=== PATIENT | male | born 1945 | race Caucasian/White ===

== ENCOUNTER → 2017-01-23 | Outpatient (CLI) | payer OTHER ==
[2017-01-23 14:18] LABS: ALT/SGPT 22 U/L (12-78); BLOOD UREA NITROGEN 13 mg/dl (7-18); BUN/CREATININE RATIO 18.7 (10-20); CALCIUM 8.9 mg/dl (8.5-10.1); CARBON DIOXIDE 33 mmol/L (21-32); CHLORIDE 99 mmol/L (98-107); CHOLESTEROL 158 mg/dl (0-200); GLUCOSE 133 mg/dl (70-99); POTASSIUM 4.2 mmol/L (3.5-5.1); SODIUM 138 mmol/L (136-145); TRIGLYCERIDES 113 mg/dl (0-150); VERY LOW DENSITY LIPOPROT CALC 23 mg/dl
[2017-01-23 14:20] LABS: BASO % 0.4 %; BASO ABS # 0.03 K/uL (0-0.2); COMPLETE YES; HEMATOCRIT 42.4 % (42-52); IG% 0.3 %; LYMPH % 15.2 %; LYMPH ABS # 1.19 K/uL (1.2-3.4); MEAN CELL VOLUME 90.4 fL (80-100); MEAN CORPUSCULAR HEMOGLOBIN 28.6 pg (25-34); MEAN CORPUSCULAR HGB CONC 31.6 g/dl (32-36); MEAN PLATELET VOLUME 11.1 fL (7.4-10.4); MONO % 11.3 %; NEUT % 71.8 %; PLATELET COUNT 185 K/uL (130-400); RED BLOOD COUNT 4.69 M/uL (4.7-6.1); WHITE BLOOD COUNT 7.81 K/uL (4.8-10.8)
[2017-01-23 14:21] LABS: ALB/GLOB RATIO 0.8 (0.9-2); ALKALINE PHOSPHATASE 124 U/L (45-117); AST/SGOT 18 U/L (15-37); CHOLESTEROL/HDL RATIO 2.5; HDL CHOLESTEROL 63 mg/dl; LDL CHOLESTEROL CALCULATED 72 mg/dl
[2017-01-23 15:27] LABS: ESTIMATED AVERAGE GLUCOSE 151 mg/dl; HA1C FLAG Normal (Normal)
== END | disposition home or self-care (01) ==
LOC: C.LABSPEC 13:28
PROVIDERS: ATTEND Family Medicine
DX: E11.9 Type 2 diabetes mellitus without complications (principal); I25.10 Atherosclerotic heart disease of native coronary artery without angina pectoris; J44.9 Chronic obstructive pulmonary disease, unspecified

== ENCOUNTER → 2017-03-23 | Outpatient (CLI) | payer OTHER ==
[2017-03-23 18:13] LABS: BASO % 0.2 %; BASO ABS # 0.02 K/uL (0-0.2); COMPLETE YES; EOS % 0.4 %; HEMATOCRIT 42.4 % (42-52); IG% 0.4 %; LYMPH % 11.4 %; LYMPH ABS # 1.16 K/uL (1.2-3.4); MEAN CORPUSCULAR HEMOGLOBIN 29.2 pg (25-34); MEAN CORPUSCULAR HGB CONC 32.1 g/dl (32-36); MEAN PLATELET VOLUME 10.8 fL (7.4-10.4); MONO % 10.8 %; NEUT % 76.8 %; PLATELET COUNT 190 K/uL (130-400); RED BLOOD COUNT 4.66 M/uL (4.7-6.1); WHITE BLOOD COUNT 10.17 K/uL (4.8-10.8)
[2017-03-23 18:59] LABS: ALT/SGPT 20 U/L (12-78); AST/SGOT 16 U/L (15-37); BLOOD UREA NITROGEN 10 mg/dl (7-18); BUN/CREATININE RATIO 15.2 (10-20); CALCIUM 8.6 mg/dl (8.5-10.1); CARBON DIOXIDE 33 mmol/L (21-32); CHLORIDE 101 mmol/L (98-107); CREATININE 0.65 mg/dl (0.60-1.40); GLUCOSE 110 mg/dl (70-99); POTASSIUM 4.1 mmol/L (3.5-5.1); SODIUM 139 mmol/L (136-145)
[2017-03-23 19:22] LABS: ALKALINE PHOSPHATASE 121 U/L (45-117); THYROID STIMULATING HORMONE 0.746 uIu/ml (0.300-4.500)
== END | disposition home or self-care (01) ==
LOC: C.LABSPEC 17:43
PROVIDERS: ATTEND Family Medicine
DX: R07.89 Other chest pain (principal); L03.032 Cellulitis of left toe; R00.0 Tachycardia, unspecified

== ENCOUNTER → 2017-04-12 | Outpatient (CLI) | payer OTHER ==
[2017-04-12 13:52] LABS: BASO % 0.1 %; BASO ABS # 0.02 K/uL (0-0.2); COMPLETE YES; EOS % 0.1 %; HEMATOCRIT 41.9 % (42-52); IG% 0.1 %; LYMPH % 9.3 %; LYMPH ABS # 1.33 K/uL (1.2-3.4); MEAN CELL VOLUME 91.3 fL (80-100); MEAN CORPUSCULAR HEMOGLOBIN 29.2 pg (25-34); MONO % 10.3 %; NEUT % 80.1 %; PLATELET COUNT 251 K/uL (130-400); RED BLOOD COUNT 4.59 M/uL (4.7-6.1); WHITE BLOOD COUNT 14.37 K/uL (4.8-10.8)
[2017-04-12 14:21] LABS: ESTIMATED AVERAGE GLUCOSE 148 mg/dl; HA1C FLAG Normal (Normal)
[2017-04-12 14:26] LABS: ALT/SGPT 26 U/L (12-78); AST/SGOT 16 U/L (15-37); BLOOD UREA NITROGEN 10 mg/dl (7-18); BUN/CREATININE RATIO 14.6 (10-20); CARBON DIOXIDE 30 mmol/L (21-32); CHLORIDE 100 mmol/L (98-107); CHOLESTEROL 164 mg/dl (0-200); CREATININE 0.65 mg/dl (0.60-1.40); GLUCOSE 122 mg/dl (70-99); POTASSIUM 3.8 mmol/L (3.5-5.1); SODIUM 139 mmol/L (136-145); TRIGLYCERIDES 122 mg/dl (0-150); VERY LOW DENSITY LIPOPROT CALC 24 mg/dl
[2017-04-12 14:30] LABS: ALB/GLOB RATIO 0.7 (0.9-2); ALKALINE PHOSPHATASE 112 U/L (45-117); CHOLESTEROL/HDL RATIO 2.6; HDL CHOLESTEROL 63 mg/dl; LDL CHOLESTEROL CALCULATED 77 mg/dl
[2017-04-12 14:35] LABS: CALCIUM 9.4 mg/dl (8.5-10.1)
== END | disposition home or self-care (01) ==
LOC: C.LABSPEC 13:25
PROVIDERS: ATTEND Family Medicine
DX: E11.9 Type 2 diabetes mellitus without complications (principal); J44.9 Chronic obstructive pulmonary disease, unspecified; I25.10 Atherosclerotic heart disease of native coronary artery without angina pectoris

== ENCOUNTER → 2017-04-25 | Outpatient (CLI) | payer OTHER ==
[2017-04-25 15:16] LABS: ALB/GLOB RATIO 0.8 (0.9-2); ALKALINE PHOSPHATASE 116 U/L (45-117); ALT/SGPT 20 U/L (12-78); AST/SGOT 15 U/L (15-37); BLOOD UREA NITROGEN 8 mg/dl (7-18); BUN/CREATININE RATIO 11.1 (10-20); CALCIUM 8.5 mg/dl (8.5-10.1); CARBON DIOXIDE 30 mmol/L (21-32); CHLORIDE 102 mmol/L (98-107); CREATININE 0.72 mg/dl (0.60-1.40); GLUCOSE 147 mg/dl (70-99); POTASSIUM 3.7 mmol/L (3.5-5.1); SODIUM 141 mmol/L (136-145)
[2017-04-25 15:36] LABS: BASO ABS # 0.19 K/uL (0-0.2); BASOPHIL % 1.8 % (0-2); COMPLETE YES; EOSINOPHIL % 0.9 %; HEMATOCRIT 43.1 % (42-52); LYMPH ABS # 0.94 K/uL (1.2-3.4); LYMPHOCYTE % 8.8 %; MEAN CELL VOLUME 90.7 fL (80-100); MEAN CORPUSCULAR HEMOGLOBIN 29.9 pg (25-34); MEAN CORPUSCULAR HGB CONC 32.9 g/dl (32-36); MEAN PLATELET VOLUME 12.2 fL (7.4-10.4); NEUTROPHILS % 80.6 %; PLATELET COUNT 193 K/uL (130-400); RED BLOOD COUNT 4.75 M/uL (4.7-6.1); WHITE BLOOD COUNT 10.66 K/uL (4.8-10.8)
== END | disposition home or self-care (01) ==
LOC: C.LABSPEC 14:13
PROVIDERS: ATTEND Family Medicine
DX: I10 Essential (primary) hypertension (principal); R06.02 Shortness of breath; R07.89 Other chest pain; R42 Dizziness and giddiness

== ENCOUNTER → 2017-08-02 | Outpatient (CLI) | payer OTHER ==
[2017-08-02 14:19] LABS: BASO % 0.5 %; BASO ABS # 0.04 K/uL (0-0.2); COMPLETE YES; EOS % 0.5 %; HEMATOCRIT 43.2 % (42-52); LYMPH % 16.3 %; MEAN CELL VOLUME 91.3 fL (80-100); MEAN CORPUSCULAR HEMOGLOBIN 29.2 pg (25-34); MEAN CORPUSCULAR HGB CONC 31.9 g/dl (32-36); MEAN PLATELET VOLUME 11.4 fL (7.4-10.4); MONO % 10.1 %; NEUT % 72.6 %; PLATELET COUNT 174 K/uL (130-400); RED BLOOD COUNT 4.73 M/uL (4.7-6.1); WHITE BLOOD COUNT 7.34 K/uL (4.8-10.8)
[2017-08-02 14:33] LABS: ALT/SGPT 21 U/L (12-78); AST/SGOT 18 U/L (15-37); BLOOD UREA NITROGEN 10 mg/dl (7-18); BUN/CREATININE RATIO 18.5 (10-20); CALCIUM 8.5 mg/dl (8.5-10.1); CARBON DIOXIDE 30 mmol/L (21-32); CHLORIDE 104 mmol/L (98-107); CREATININE 0.56 mg/dl (0.60-1.40); GLUCOSE 95 mg/dl (70-99); POTASSIUM 4.2 mmol/L (3.5-5.1); SODIUM 140 mmol/L (136-145)
[2017-08-02 14:37] LABS: ALB/GLOB RATIO 0.8 (0.9-2); ALKALINE PHOSPHATASE 117 U/L (45-117); CHOLESTEROL 126 mg/dl (0-200); CHOLESTEROL/HDL RATIO 2.5; ESTIMATED AVERAGE GLUCOSE 140 mg/dl; HA1C FLAG Normal (Normal); HDL CHOLESTEROL 51 mg/dl; LDL CHOLESTEROL CALCULATED 54 mg/dl; TRIGLYCERIDES 105 mg/dl (0-150); VERY LOW DENSITY LIPOPROT CALC 21 mg/dl
== END | disposition home or self-care (01) ==
LOC: C.LABSPEC 13:33
PROVIDERS: ATTEND Family Medicine
DX: E11.9 Type 2 diabetes mellitus without complications (principal); J44.1 Chronic obstructive pulmonary disease with (acute) exacerbation; I10 Essential (primary) hypertension

== ENCOUNTER → 2017-11-01 | Outpatient (CLI) | payer OTHER ==
[2017-11-01 12:50] LABS: BASO % 0.3 %; BASO ABS # 0.02 K/uL (0-0.2); EOS % 0.7 %; EOS ABS # 0.04 K/uL (0-0.5); HEMATOCRIT 42.3 % (42-52); HEMOGLOBIN 13.1 g/dL (14.0-18.0); IG# 0.01 K/uL (0.00-0.02); LYMPH % 13.7 %; LYMPH ABS # 0.82 K/uL (1.2-3.4); MEAN CELL VOLUME 92.2 fL (80-100); MEAN CORPUSCULAR HEMOGLOBIN 28.5 pg (25-34); MEAN PLATELET VOLUME 11.2 fL (7.4-10.4); MONO % 7.8 %; MONO ABS # 0.47 K/uL (0.11-0.59); NEUT % 77.3 %; NEUT ABS # 4.63 K/uL (1.4-6.5); PLATELET COUNT 176 K/uL (130-400); RED CELL DISTRIBUTION WIDTH CV 13.3 % (11.5-14.5); RED CELL DISTRIBUTION WIDTH SD 44.7 fL (36.4-46.3); WHITE BLOOD COUNT 5.99 K/uL (4.8-10.8)
[2017-11-01 13:14] LABS: ALBUMIN 3.2 gm/dl (3.4-5.0); ALKALINE PHOSPHATASE 110 U/L (45-117); ALT/SGPT 19 U/L (12-78); AST/SGOT 18 U/L (15-37); BLOOD UREA NITROGEN 10 mg/dl (7-18); CALCIUM 8.9 mg/dl (8.5-10.1); CARBON DIOXIDE 36 mmol/L (21-32); CHOLESTEROL 201 mg/dl (0-200); CREATININE 0.68 mg/dl (0.60-1.40); GLUCOSE 193 mg/dl (70-99); POTASSIUM 4.1 mmol/L (3.5-5.1); SODIUM 135 mmol/L (136-145); TOTAL PROTEIN 7.2 gm/dl (6.4-8.2)
[2017-11-01 13:16] LABS: LDL CHOLESTEROL CALCULATED 115 mg/dl
[2017-11-01 13:17] LABS: HEMOGLOBIN A1C 6.7 % (4.5-5.6)
== END | disposition home or self-care (01) ==
LOC: C.LABSPEC 12:24
PROVIDERS: ATTEND Family Medicine
DX: R60.0 Localized edema (principal); E11.9 Type 2 diabetes mellitus without complications

== ENCOUNTER → 2017-11-21 | Outpatient (CLI) | payer OTHER ==
[2017-11-21 18:33] LABS: BASO % 0.6 %; BASO ABS # 0.04 K/uL (0-0.2); EOS % 0.9 %; EOS ABS # 0.06 K/uL (0-0.5); HEMATOCRIT 40.6 % (42-52); HEMOGLOBIN 12.5 g/dL (14.0-18.0); IG# 0.01 K/uL (0.00-0.02); LYMPH % 17.3 %; LYMPH ABS # 1.22 K/uL (1.2-3.4); MEAN CELL VOLUME 91.4 fL (80-100); MEAN CORPUSCULAR HEMOGLOBIN 28.2 pg (25-34); MEAN CORPUSCULAR HGB CONC 30.8 g/dl (32-36); MEAN PLATELET VOLUME 11.6 fL (7.4-10.4); MONO % 8.4 %; MONO ABS # 0.59 K/uL (0.11-0.59); NEUT % 72.7 %; NEUT ABS # 5.12 K/uL (1.4-6.5); PLATELET COUNT 200 K/uL (130-400); RED CELL DISTRIBUTION WIDTH CV 13.5 % (11.5-14.5); RED CELL DISTRIBUTION WIDTH SD 44.9 fL (36.4-46.3); WHITE BLOOD COUNT 7.04 K/uL (4.8-10.8)
[2017-11-21 18:42] LABS: ALBUMIN 3.1 gm/dl (3.4-5.0); ALT/SGPT 20 U/L (12-78); AST/SGOT 15 U/L (15-37); BLOOD UREA NITROGEN 12 mg/dl (7-18); CALCIUM 8.9 mg/dl (8.5-10.1); CARBON DIOXIDE 34 mmol/L (21-32); CHOLESTEROL 143 mg/dl (0-200); CREATININE 0.63 mg/dl (0.60-1.40); GLUCOSE 126 mg/dl (70-99); POTASSIUM 3.4 mmol/L (3.5-5.1); SODIUM 137 mmol/L (136-145)
[2017-11-21 18:44] LABS: ALKALINE PHOSPHATASE 99 U/L (45-117); LDL CHOLESTEROL CALCULATED 63 mg/dl; TOTAL PROTEIN 6.6 gm/dl (6.4-8.2)
[2017-11-22 06:17] LABS: HEMOGLOBIN A1C 6.8 % (4.5-5.6)
== END | disposition home or self-care (01) ==
LOC: C.LABSPEC 17:57
PROVIDERS: ATTEND Family Medicine
DX: E11.9 Type 2 diabetes mellitus without complications (principal); I10 Essential (primary) hypertension; M54.9 Dorsalgia, unspecified

== ENCOUNTER → 2018-02-05 | Outpatient (CLI) | payer OTHER ==
[2018-02-05 14:23] LABS: BASO % 0.3 %; BASO ABS # 0.02 K/uL (0-0.2); EOS % 0.3 %; EOS ABS # 0.02 K/uL (0-0.5); IG# 0.01 K/uL (0.00-0.02); LYMPH % 14.4 %; LYMPH ABS # 0.94 K/uL (1.2-3.4); MEAN CELL VOLUME 90.3 fL (80-100); MEAN CORPUSCULAR HEMOGLOBIN 29.3 pg (25-34); MEAN CORPUSCULAR HGB CONC 32.5 g/dl (32-36); MEAN PLATELET VOLUME 11.3 fL (7.4-10.4); MONO ABS # 0.91 K/uL (0.11-0.59); NEUT % 70.8 %; NEUT ABS # 4.61 K/uL (1.4-6.5); PLATELET COUNT 170 K/uL (130-400); RED CELL DISTRIBUTION WIDTH CV 13.3 % (11.5-14.5); WHITE BLOOD COUNT 6.51 K/uL (4.8-10.8)
[2018-02-05 14:51] LABS: ALBUMIN 3.5 gm/dl (3.4-5.0); ALT/SGPT 23 U/L (12-78); AST/SGOT 19 U/L (15-37); BLOOD UREA NITROGEN 14 mg/dl (7-18); CALCIUM 9.1 mg/dl (8.5-10.1); CARBON DIOXIDE 31 mmol/L (21-32); CHOLESTEROL 115 mg/dl (0-200); CREATININE 0.78 mg/dl (0.60-1.40); GLUCOSE 127 mg/dl (70-99); POTASSIUM 3.7 mmol/L (3.5-5.1); SODIUM 139 mmol/L (136-145)
[2018-02-05 14:53] LABS: ALKALINE PHOSPHATASE 117 U/L (45-117); HEMOGLOBIN A1C 6.7 % (4.5-5.6); LDL CHOLESTEROL CALCULATED 40 mg/dl; TOTAL PROTEIN 6.9 gm/dl (6.4-8.2)
== END | disposition home or self-care (01) ==
LOC: C.LABSPEC 13:56
PROVIDERS: ATTEND Family Medicine
DX: E11.9 Type 2 diabetes mellitus without complications (principal); I10 Essential (primary) hypertension

== ENCOUNTER 2024-07-21 10:06 | Inpatient (IN) ==
--- OUTSIDE RECORDS SUMMARY | 2024-07-21 10:12 | External Medical Summary | Summary of Care ---
Author Name Unknown Organization [facility] Address [address] [place] [address] Phone [phone] Care Team Providers Care Metals Analyst Name Role Phone AndersKumar garcia Primary Care Provider [phone] Encounter Details Date Type Department Care Team (Late st Contact Info) Description 04/29/2024 Population Health External Data Unspecified Department Allergies Active Allergy Reactions Criticality Noted Date Comments Penicillins Hives 06/19/2009 Pentobarbital Sodium 04/10/2014 documented as of this encounter (statuses as of 04/30/2024) Medications Medication Sig Dispensed Refills Start Date End Date Status ASPIRIN 81 MG PO TABS Active ATORVASTATIN CALCIUM 40 MG PO TABS one daily Active Hydrocodone-Acetami nophen 10-325 MG per tablet Take 1 Tablet by mouth every 4 hours as needed. 0 06/25/2015 Active lisinopril (PRINIVIL) 5 MG Tablet Take 1 Tablet by mouth in the morning. 5 06/15/2015 Active nitroglycerin (NITROSTAT) 0.4 MG SUBL Active metFORMIN (GLUCOPHAGE) 500 MG Tablet 2 tabs once daily in am and 1 tab once daily in the pm 5 12/01/2016 Active Respiratory Therapy Supplies KIT Med resmed airfit mask w/head gear, supply tubing, filter, non-disposable filter, cushion DX G 47.33 1 Kit 11 09/08/2017 Active albuterol (VENTOLIN HFA) 108 (90 BASE) MCG/ACT inhalerIndications: COPD, moderate (HCC) Inhale 2 Puffs by mouth every 4 hours as needed for Cough, Shortness of Breath, Wheezing or Dyspnea. 1 Inhaler 11 09/24/2018 Active oxygen IN GAS Continue 3L Oxygen at night daily, discontinue oxygen during daytime. 1 Each 04/22/2022 Active Dexilant 60 MG Oral Capsule Delayed ReleaseIndications: HTN, goal below 140/90 Take 1 Capsule by mouth in the morning. 30 Capsule 5 03/29/2023 Active Roflumilast 500 MCG Oral Tablet (Daliresp)Indicatio ns:HTN, goal below 140/90 Take 1 Tablet by mouth in the morning. 30 Tablet 5 03/29/2023 Active Ciprofloxacin HCl 0.3 % Ophthalmic Solution Instill 1 Drop into both eyes in the morning and 1 Drop at noon and 1 Drop in the evening and 1 Drop before bedtime. 5 mL 1 03/30/2023 Active Albuterol Sulfate (2.5 MG/3ML) 0.083% Inhalation Nebulization Solution (Proventil) Inhale 1 Vial via nebulizer every 4 hours as needed for Wheezing. 360 mL 1 04/17/2023 Active Gabapentin 400 MG Oral Capsule (Neurontin) TAKE 1 CAPSULE BY MOUTH BEFORE BED 90 Capsule 1 07/02/2023 Active Acetaminophen 500 MG Oral Tablet (Tylenol) Take 1 Tablet by mouth every 6 hours as needed. Active Fluticasone-Umeclid in-Vilant 100-62.5-25 MCG/ACT Aerosol Powder Breath Activated (Trelegy Ellipta)Indications :COPD, severe (HCC) Inhale 1 Puff by mouth in the morning. 1 Each 5 08/22/2023 Active Torsemide 20 MG Oral Tablet Take 2 Tablets by mouth 2 times a day in the morning and at noon. 360 Tablet 3 01/11/2024 Active Sodium Chloride (Hypertonic) 5 % Ophthalmic Solution (Murtaza-128) INSTILL 1 DROP INTO THE RIGHT EYE IN THE MORNING AND 1 DROP AT NOON AND 1 DROP IN THE EVENING AND 1 DROP BEFORE BEDTIME. 30 mL 5 04/30/2024 Active Hospital, Clinic, or Other Facility Administered Medication Ordered Dose Route Frequency Start Date End Date Status Albuterol Sulfate (Proventil) (5 MG/ML) 0.5% *conc* inhalation solution 2.5 mgIndications:COPD, severe (HCC),Tobacco use disorder 2.5 mg NEBULIZER PRN 05/24/2023 05/23/2024 Active documented as of this encounter (statuses as of 04/30/2024) Active Problems Problem Noted Date Diagnosed Date Marijuana smoker 04/18/2023 Type 2 diabetes mellitus wit h diabetic peripheral angiopathy without gangrene 04/17/2023 Last Assessment & Plan: "RED FLAG" Diabetic symptoms: o Confusion and Vision Changes Goal HgbA1c o <8 Diabetic Complications o Vascular (examples: PVD, PAD, CAD, CVA) Medication Regimen o Metformin DM Secondary Prevention o ELADIO Inhibitor / ARB o Moderate-High Intensity Statin o Aspirin Additional Comments o Roommate reports his last hgba1c 6. Aortic atherosclerosis 04/17/2023 Last Assessment & Plan: Aortic Atherosclerosis noted on prior imaging. Continue with treatment including Antiplatelet therapy Blood pressure control Lipid control Smoking abstinence/cessation Glycemic control COPD, group D, by GOLD 2017 classification 11/14 Overview: Per COPD GOLD Classification Last Assessment & Plan: "RED FLAG" COPD symptoms: o NO IDENTIFIED SYMPTOMS Medication Regimen o All Classes - LEXY o Class D - Inhaled Nttlycqzjpsook-[id number]-COZG Combination Inhaler (Trellegy) Self-Management plan o High frequency nebulizer treatments every 4-6 hours around the clock o Begin wearing supplemental oxygen continuously until symptoms return to baseline Exacerbation plan o BMP o Chest Xray Additional Comments: o Stable today Chronic rhinitis 09/10/2020 Hearing loss, mixed, bilateral 09/10/2020 RBBB (right bundle branch block) 09/02/2019 Rhinovirus infection 08/08/2019 Chronic respiratory failure with hypoxia 019 Last Assessment & Plan: Wearing 2L qhs and prn Pre-syncope 12/09/2018 Falls 12/09/2018 Pneumonia 12/09/2018 Acute midline low back pain without sciatica Lumbar radiculopathy 03/26/2017 Chronic back pain 03/26/2017 Last Assessment & Plan: Taking vicodin prn Controlled substance agreement signed 03/25/2017 Tobacco abuse 03/16/2015 Last Assessment & Plan: Not interested in cessation. Rolls own cigarettes and smokes 3ppd including marijuana. HTN, goal below 140/90 08/28/2011 Percutaneous transluminal coronary angioplasty s tatus 08/28/2011 Type 2 diabetes mellitus wit h hemoglobin A1c goal of less than 7.0% 08/28/2011 Overview: ICD-10 update of inactive term Dyslipidemia, goal to be determined 08/28/2011 Last Assessment & Plan: Continues atorvastatin--no Lipid panel on file. PCP non-[facility] Coronary atherosclerosis of [place] coronary [place] 08/28/2011 BMI 35-39 ISOLATED (SEE ACTUAL BMI) 04/19/2010 Overview: Per Obesity Protocol, #19 SANJAY (obstructive sleep apnea) Last Assessment & Plan: Refuses CPAP documented as of this encounter (statuses as of 04/30/2024) Resolved Problems Problem Noted Date Diagnosed Date Resolved Date COPD, group C, by GOLD 2017 classification 07/18/2022 11/17/2022 Overview: Per COPD GOLD Classification COPD exacerbation 08/07/2019 04/18/2023 COPD exacerbation 03/26/2017 04/18/2023 COPD, severe 03/16/2015 07/21/2022 Overview: Per COPD GOLD Classification Respiratory failure 03/16/2015 04/18/20 23 Hypoxemia 04/18/2023 documented as of this encounter (statuses as of 04/30/2024) Immunizations Name Administration Dates Next Due COVID-19 mRNA, LNP-s, No Pre serve, 2-Dose Series (Moderna) 02/23/2021,02/05/2021 COVID-19, mRNA, LNP-s, PF, B ooster, 100mcg/0.5mg (Moderna) 10/19/2021 Pneumococcal Polysaccharide PPV23 (Pneumovax) Seasonal Influenza, Quadrivalent Hd, 65+ Yrs 11/2019 Seasonal Influenza, Split, IIV3, No Preserve, In j 08/06/2017 Seasonal Influenza, Split, IIV3, With Preserve, Inj 08/05/2013 Seasonal Influenza, Trivalent, Adjuvanted, 65+ y rs 07/25/2019 Seasonal Influenza, Trivalen t, High Dose, No Preserve, IM 07/16/2018 TDAP (age 10 and older)(Boostrix) 07/03/2022,09/2015 documented as of this encounter Social History Tobacco Use Types Packs/Day Years Used Date Smoking Tobacco: Every Day Cigarettes 1.5 57 Smokeless Tobacco: Never Alcohol Use Standard Drinks/Week Comments Not Currently 0 (1 standard drink = 0.6 oz pur e alcohol) quit 1999 AUDIT-C Answer Date Recorded Frequency of Alcohol Consumption 4 or more times a week 04/22/2020 Average Number of Drinks 7 to 9 020 Frequency of Binge Drinking Daily or almost jerald y 04/22/2020 Hunger Vital Sign Answer Date Recorded Within the past 12 months, y ou worried that your food would run out before you got the money to buy more. Never true 02/14/20 23 Within the past 12 months, t he food you bought just didn't last and you didn't have money to get more. Never true 02/13/2023 Utilities Answer Date Recorded Do you have trouble paying y our heating, water, or electric bill? (Adult - for ages 18 years and over) Not on file 04/23/2024 Is your family able to pay t he heat, water, or electric bill? (Household - for ages 0-17 years) Not on file 04/23/2024 Does your family have access to good internet? (Household - for ages 0-17 years) Not on file 04/23/2024 Social Connections Answer Date Recorded How often do you feel lonely or isolated from those around you? (Adult - for ages 18 years and over) Not on file 04/23/2024 Sex and Gender Information Value Date Recorded Sex Assigned at Not on file Gender Identity Not on file Sexual Orientation Not on file Job Start Date Occupation Industry Not on file Not on file Not on file documented as of this encounter Functional Status Functional Status Response Date of Assess ment Are you deaf or do you have serious difficulty hearing? No 08/07/2019 Are you blind or do you have serious difficulty seeing, even when wearing glasses? No 08/07/2019 Do you have serious difficul ty walking or climbing stairs? (5 years old or older) No 08/07/2019 Do you have difficulty dress ing or bathing? (5 years old or older) No 08/07/2019 Because of a physical, menta l, or emotional condition, do you have difficulty doing errands alone such as visiting a doctor s office or shopping? (15 years old or older) Yes-daughter takes pt to his appointments 08/07/2019 Cognitive Status Response Date of Assessm ent Because of a physical, menta l, or emotional condition, do you have serious difficulty concentrating, remembering, or making decisions? (5 years old or older) No 08/07/2019 documented as of this encounter Plan of Treatment Upcoming Encounters Date Type Department Care Team (Late st Contact Info) Description 06/24/2024 2:00 PM EDT Office Visit Ophthalmology, [place] [address] [phone] Davdi Wang MD [address] [phone] Health Maintenance Due Date Last Done Comments Depression Screening 1957 Diabetic Foot Exam 1965 Hepatitis C Screening 1965 Zoster Vaccines (1 of 2) 1997 Pneumococcal Vaccine: 65+ Years (2 of 2 - PCV) 08/05/2014 08/05/2013 *ADVANCE DIRECTIVE NOT ON FILE 03/19/2015 Albumin/Creatinine Ratio 01/13/2016 01/12/2015 HbA1c 01/07/2020 07/09/2019, 02/02/2019, 01/12/2015, Additional history exists COVID-19 Vaccine ( season) 2023 10/19/2021, 02/23/2021, 02/05/2021 DISCUSS TOBACCO CESSATION (REFER TO SMARTSET #2732) 05/24/2024 05/24/2023, 04/22/2022, 09/24/2018, Additional history exists Diabetic Eye Exam 06/08/2024 06/08/2023, , 03/30/2021, Additional history exists Influenza Vaccine (FLU shot) (Season Ended) 2024 07/08/2022, 07/22/2021, 08/06/2020, Additional history exists GFR 10/08/2024 10/08/2023, 04/2023, 06/30/2023, Additional history exists O2 ASSESSMENT COMPLETED IN PAST YEAR FOR COPD 10/09/2024 10/09/2023 DTaP,Tdap,and Td Vaccines (3 - Td or Tdap) 07/03/2032 07/03/2022, 05/16/2015 Alpha-1 Antitrypsin Completed 10/10/2022 Lung Cancer Screening Completed 10/10/2022 , 10/04/2021, 08/21/2021, Additional history exists GARDASIL-HPV IMMUNIZATION SERIES Aged Out No longer eligible based on patient's age to complete this topic Hepatitis B Aged Out No longer eligi ble based on patient's age to complete this topic MENINGOCOCCAL (MENACTRA/MENVEO) Aged Out No longer eligible based on patient's age to complete this topic documented as of this encounter Medical Devices Not on filedocumented as of this encounter Advance Directives * Full Code (Latest Code Status on File) Date Activated Date Inactivated Comments 08/07/2019 11:25 PM 08/08/2019 11:19 PM This order reflects the patients wishes and were consensually agreed upon. * Full Code Date Activated Date Inactivated Comments 12/09/2018 8:07 PM 12/11/2018 6:14 PM This order ref lects the patients wishes and were consensually agreed upon. Question Answer Comments Discussion of Advance Directives occurred with: Patient Does the patient have a Living Will? Yes, not cu rrently available * No Code Date Activated Date Inactivated Comments 11/06/2017 11:44 AM 11/08/2017 3:37 PM This order re flects the patients wishes and were consensually agreed upon. Question Answer Comments Discussion of Advance Directives occurred with: Patient Does the patient have a Living Will? No Does the patient have Health Care Power of Attor nate? No * No Code Date Activated Date Inactivated Comments 03/26/2017 2:59 AM 03/26/2017 2:00 PM This order r eflects the patients wishes and were consensually agreed upon. Question Answer Comments Discussion of Advance Directives occurred with: Patient Does the patient have a Living Will? Yes, not cu rrently available Does the patient have Health Care Power of Shaping Machine Operator? Yes, not currently available * Full Code Date Activated Date Inactivated Comments 12/13/2016 12:32 AM 12/14/2016 7:45 PM This order re flects the patients wishes and were consensually agreed upon. Healthcare Agents on File Name Relationship Healthcare Agent Relationshi p Communication Cheli Satsuma Adult Child Health Care Repr esentative (appointed verbally by patient or by statute hierarchy) Care Teams Metals Analyst Relationship Specialty Start Date End Date Kumar Anders DO [address] [place] [address] PCP - General 12/14/07 documented as of this encounter
--- OUTSIDE RECORDS SUMMARY | 2024-07-21 10:12 | External Medical Summary | Summary of Care ---
Author Name Unknown Organization [facility] Address [address] [place] [address] Phone [phone] Care Team Providers Care Double Back Operator Name Role Phone AndersKumar garcia Primary Care Provider [phone] Encounter Details Date Type Department Care Team (Late st Contact Info) Description 05/28/2024 Population Health External Data Unspecified Department Allergies Active Allergy Reactions Criticality Noted Date Comments Penicillins Hives 06/19/2009 Pentobarbital Sodium 04/10/2014 documented as of this encounter (statuses as of 05/31/2024) Medications Medication Sig Dispensed Refills Start Date [...] BEFORE BEDTIME. 30 mL 5 04/30/2024 Active documented as of this encounter (statuses as of 05/31/2024) Active Problems Problem Noted Date Diagnosed Date [...] - LEXY o Class D - Inhaled Xqrhlwztgbdqmp-MFRM-[id number] Combination Inhaler (Trellegy) Self-Management plan o High [...] on file. PCP non-[facility] Coronary atherosclerosis of [place] coronary [place] 08/28/2011 BMI 35-39 ISOLATED (SEE ACTUAL BMI) 04/19/2010 Overview: Per Obesity Protocol, #19 SANJAY (obstructive sleep apnea) Last Assessment & Plan: Refuses CPAP documented as of this encounter (statuses as of 05/31/2024) Resolved Problems Problem Noted Date Diagnosed Date Resolved Date COPD, group C, by GOLD 2017 classification 07/18/2022 11/17/2022 Overview: Per COPD GOLD Classification COPD exacerbation 08/07/2019 04/18/2023 COPD exacerbation 03/26/2017 04/18/2023 COPD, severe 03/16/2015 07/21/2022 Overview: Per COPD GOLD Classification Respiratory failure 03/16/2015 04/18/20 23 Hypoxemia 04/18/2023 documented as of this encounter (statuses as of 05/31/2024) Immunizations Name Administration Dates Next Due COVID-19 [...] 2:00 PM EDT Office Visit Ophthalmology, [place] [address] [phone] David Wang MD [address] [phone] Health Maintenance Due Date Last Done Comments Depression Screening 1957 Diabetic Foot Exam 1965 Hepatitis C Screening 1965 Zoster Vaccines (1 of 2) 1997 Pneumococcal Vaccine: 65+ Years (2 of 2 - PCV) 08/05/2014 08/05/2013 *ADVANCE DIRECTIVE NOT ON FILE 03/19/2015 Albumin/Creatinine Ratio 01/13/2016 01/12/2015 HbA1c 01/07/2020 07/09/2019, 02/2019, 01/12/2015, Additional history exists COVID-19 Vaccine ( season) 2023 10/19/2021, 02/23/2021, 02/05/2021 *CXR OR CT FOR COPD EVER 05/19/2024 DISCUSS TOBACCO CESSATION (REFER TO SMARTSET #5581) 05/24/2024 05/24/2023, 04/22/2022, 09/24/2018, Additional history exists Diabetic Eye Exam 06/08/2024 06/08/2023, , 03/30/2021, Additional history exists Influenza Vaccine (FLU shot) (#1) 2024 07/08/2022, 07/22/2021, 08/06/2020, Additional history exists GFR 10/08/2024 10/08/2023, 04/2023, 06/30/2023, Additional history exists O2 ASSESSMENT COMPLETED IN PAST YEAR FOR COPD 10/09/2024 10/09/2023 DTaP,Tdap,and Td Vaccines (3 - Td or Tdap) 07/03/2032 07/03/2022, 05/16/2015 Alpha-1 Antitrypsin Completed 10/10/2022 Lung Cancer Screening Completed 10/10/2022 , 10/04/2021, 08/21/2021, Additional history exists HPV (Gardasil) Vaccine Aged Out No lo nger eligible based on patient's age to complete this topic Hepatitis B Vaccine Aged Out No longe r eligible based on patient's age to complete [...] the patient have Health Care Power of Foundry Equipment Mechanic? Yes, not currently available * Full Code Date Activated Date Inactivated Comments 12/13/2016 12:32 AM 12/14/2016 7:45 PM This order re flects the patients wishes and were consensually agreed upon. Healthcare Agents on File Name Relationship Healthcare Agent Relationshi p Communication Cheli Stewart Adult Child Health Care Repr esentative (appointed verbally by patient or by statute hierarchy) Care Teams Double Back Operator Relationship Specialty Start Date End Date Kumar Anders DO [address] [place] [id number] PCP - General 12/14/07 documented as of this encounter
--- OUTSIDE RECORDS SUMMARY | 2024-07-21 10:12 | External Medical Summary | Summary of Care ---
Author Name Unknown Organization [facility] Address [address] [place] [address] Phone [phone] Care Team Providers Care Central Sterile Supply Technician Name Role Phone Chago Kumar Yifan Primary Care Provider [phone] Reason for Visit * Reason Comments Diabetic Exam Encounter Details Date Type Department Care Team (Late st Contact Info) Description 06/25/2024 9:45 AM EDT Office Visit Ophthalmology, [place] [address] [facility] [place] [phone] David Wang MD [address] [place] [place] [address] Encounter for diabetes type 2 eye exam ([facility])*; Type 2 diabetes mellitus with hemoglobin A1c goal of less than 8.0% ([facility]); Bullous keratopathy of right eye; Pseudophakia Allergies Active Allergy Reactions Criticality Noted Date Comments Penicillins Hives 06/19/2009 Pentobarbital Sodium 04/10/2014 documented as of this encounter (statuses as of 06/25/2024) Medications Medication Sig Dispensed Refills Start Date [...] 5 12/01/2016 Active Respiratory Therapy Supplies KIT Myla resmed airfit mask w/head gear, supply tubing, filter, non-disposable filter, cushion DX G 47.33 1 Kit 11 09/08/2017 Active albuterol (VENTOLIN HFA) 108 (90 BASE) MCG/ACT inhalerIndications: COPD, moderate (HCC) Inhale 2 Puffs by mouth every 4 hours as needed for Cough, Shortness of Breath, Wheezing or Dyspnea. 1 Inhaler 09/24/2018 Active oxygen IN GAS Continue 3L Oxygen at night daily, discontinue oxygen during daytime. 1 Each 04/22/2022 Active Dexilant 60 MG Oral Capsule Delayed ReleaseIndications: HTN, goal below 140/90 Take 1 Capsule by mouth in the morning. 30 Capsule 03/29/2023 Active Roflumilast 500 MCG Oral Tablet (Daliresp)Indicatio ns:HTN, goal below 140/90 Take 1 Tablet by mouth in the morning. 30 Tablet 03/29/2023 Active Ciprofloxacin HCl 0.3 % Ophthalmic Solution Instill 1 Drop into both eyes in the morning and 1 Drop at noon and 1 Drop in the evening and 1 Drop before bedtime. 5 mL 03/30/2023 Active Albuterol Sulfate (2.5 MG/3ML) 0.083% [...] as of this encounter (statuses as of 06/25/2024) Active Problems Problem Noted Date Diagnosed Date [...] - LEXY o Class D - Inhaled Gldmyedpkpinib-VIAW-FPEW Combination Inhaler (Trellegy) Self-Management plan o High [...] on file. PCP [facility] Coronary atherosclerosis of [place] coronary [place] ry 08/28/2011 BMI 35-39 ISOLATED (SEE ACTUAL BMI) 04/19/2010 Overview: Per Obesity Protocol, #19 SANJAY (obstructive sleep apnea) Last Assessment & Plan: Refuses CPAP documented as of this encounter (statuses as of 06/25/2024) Resolved Problems Problem Noted Date Diagnosed Date Resolved Date COPD, group C, by GOLD 2017 classification 07/18/2022 11/17/2022 Overview: Per COPD GOLD Classification COPD exacerbation 08/07/2019 04/18/2023 COPD exacerbation 03/26/2017 04/18/2023 COPD, severe 03/16/2015 07/21/2022 Overview: Per COPD GOLD Classification Respiratory failure 03/16/2015 04/18/20 23 Hypoxemia 04/18/2023 documented as of this encounter (statuses as of 06/25/2024) Immunizations Name Administration Dates Next Due COVID-19 [...] No 08/07/2019 documented as of this encounter Progress Notes * David Wang MD - 06/25/2024 10:05 AM EDT [facility] DEPARTMENT OF OPHTHALMOLOGY DIABETIC EYE EXAM PATIENT NAME: Adam Hayes (79 year old male) PRIMARY CARE PHYSICIAN: Kumar Anders, DO CC: here for diabetic eye exam HPI: DM for 13 years Lab Results Component Value Date/Time HEMOGLOBIN A1C - [facility] 7.1 (H) 07/09/2019 09:40 AM POH: see below Past Medical History: Diagnosis Date Bullous keratopathy of right eye Calculus of kidney 06/2009 Renal Calculus 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 COPD (chronic obstructive pulmonary disease) (HCC) Coronary atherosclerosis of [place] coronary artery 08/28/2011 DM type 2, goal A1c below 7 08/28/2011 Ectropion LLL HTN, goal below 130/80 Hyperlipidemia LDL goal < 70 Hypoxemia Impacted cerumen INFORMATION 05/16/2015 dent left upper leg/groin/abdomen [place] (myocardial infarction) (HCC) Obesity, unspecified Obstructive sleep apnea (adult) (pediatric) Percutaneous transluminal coronary angioplasty status 08/28/2011 S/P percutaneous transluminal coronary angioplasty 2006 D1 Tobacco use disorder Past Surgical History: Procedure Laterality Date CATHETERIZE LEFT HEART THRU SKIN 09-01-08 Cardiac Catheterization, Left Heartx 2 stents FOOT/TOE SURGERY NEC FOREARM/WRIST SURGERY NEC ? INCISION OF COLON 10/2007 INFORMATION IOL repositionOD [place] INSERTION OF LENS PROSTHESIS LAPAROSCOPY; CHOLECYSTECTOMY 2006 MISCELLANEOUS ORDER ([facility] ONLY) 03/16/2006 BMS PIXEL RX Stent [facility] x 2 NASAL SURGERY PROCEDURE NEC 2006 repair of nose OTHER (INFORMATION) 09/01/[address] INTRACORONARY STENT, FIRST VS 2006 D1 REMOVE CATARACT, INSERT LENS PROSTH OS Kleinert OD [place] REMOVE TONSILS & ADENOIDS, UNDER 12 REPAIR OF NASAL SEPTUM Septoplasty RIGHT HEART CATHETERIZATION 03-11 Cardiac Catheterization, Right Heart x2 stents STRESS TREADMILL 2007 Cardiovascular Stress Test UMBIL HERNIA REPAIR (REDUCIBLE) AGE 5+YR -2008 Umbilical Hernia Repair,5+Y/O,Reduc double hernia VASECTOMY MEDS: Current Outpatient Medications Medication Sig Dispense Refill ASPIRIN 81 MG PO TABS ATORVASTATIN CALCIUM 40 MG PO TABS one daily Hydrocodone-Acetaminophen 10-325 MG per tablet Take 1 Tablet by mouth every 4 hours as needed. 0 lisinopril (PRINIVIL) 5 MG Tablet Take 1 Tablet by mouth in the morning. 5 nitroglycerin (NITROSTAT) 0.4 MG SUBL metFORMIN (GLUCOPHAGE) 500 MG Tablet 2 tabs once daily in am and 1 tab once daily in the pm 5 Respiratory Therapy Supplies KIT Med resmed airfit mask w/head gear, supply tubing, filter, non-disposable filter, cushion DX G 47.33 1 Kit 11 albuterol (VENTOLIN HFA) 108 (90 BASE) MCG/ACT inhaler Inhale 2 Puffs by mouth every 4 hours as needed for Cough, Shortness of Breath, Wheezing or Dyspnea. 1 Inhaler 11 oxygen IN GAS Continue 3L Oxygen at night daily, discontinue oxygen during daytime. 1 Each 0 Dexilant 60 MG Oral Capsule Delayed Release Take 1 Capsule by mouth in the morning. 30 Capsule 5 Roflumilast 500 MCG Oral Tablet (Daliresp) Take 1 Tablet by mouth in the morning. 30 Tablet 5 Ciprofloxacin HCl 0.3 % Ophthalmic Solution Instill 1 Drop into both eyes in the morning and 1 Dropat noon and 1 Drop in the evening and 1 Drop before bedtime. 5 mL 1 Albuterol Sulfate (2.5 MG/3ML) 0.083% Inhalation Nebulization Solution (Proventil) Inhale 1 Vial via nebulizer every 4 hours as needed for Wheezing. 360 mL 1 Gabapentin 400 MG Oral Capsule (Neurontin) TAKE 1 CAPSULE BY MOUTH BEFORE BED 90 Capsule 1 Acetaminophen 500 MG Oral Tablet (Tylenol) Take 1 Tablet by mouth every 6 hours as needed. Remlklxpgzj-Noqhffipa-Ityvok 100-62.5-25 MCG/ACT Aerosol Powder Breath Activated (Trelegy Ellipta) Inhale 1 Puff by mouth in the morning. 1 Each 5 Torsemide 20 MG Oral Tablet Take 2 Tablets by mouth 2 times a day in the morning and at noon. 360 Tablet 3 Sodium Chloride (Hypertonic) 5 % Ophthalmic Solution (Murtaza-128) INSTILL 1 DROP INTO THE RIGHT EYE IN THE MORNING AND 1 DROP AT NOON AND 1 DROP IN THE EVENING AND 1 DROP BEFORE BEDTIME. 30 mL 5 No current facility-administered medications for this visit. ALLERGIES: Review of patient's allergies indicates: Allergen Reactions Pcn [Penicillins] Hives Sodium Pentobarbital [Pentobarbital Sodium] EXAM VA sc OD (D) CF @ 3'; VA sc OD (N) 20/400 VA sc OS (D) 20/200; VA sc OS (N) 20/25 PC OD: sph -3.50 cyl +1.75 axis 120 PC OS: sph -4.50 cyl +1.00 axis 85 EXTERNAL: CVF: Full OU Lids: dermatochalasis BUL Conjunctiva: WNL OU Pupils: updrawn OD; round OS EOM: Full SLIT LAMP Cornea: edema OD; clear OS Tear Film: WNL OU A/C: deep OU; superior vit bulge OD Lens: ACL OD; PCL OS Iris: WNL OU TA OD: 10; OS: 10; 10:05 AM DILATED EXAM: Dilated with Mydriacyl 1% and Mydfrin 2.5%; advised re driving Lens used: 28 D and 90 D Vitreous: clear OU C/D: no view OD; 0.1 OS Macula: no view OD; WNL OS Periphery: WNL OD; WNL OS ASSESSMENT/PLAN DM 2 - controlled - no diabetic retinopathy --pt advised to tightly control blood sugars PBK OD - does not want corneal surgery --Murtaza OD BID IOL OU c vit loss OD (Dr. Perry) RTC: 1 y David Wang MD 06/25/2024 10:05 AM documented in this encounter Nursing Notes * Miladys Leach COA - 06/25/2024 9:37 AM EDT Pt presents to the clinic today as a return for a dilated diabetic exam. VA sc OD (D) CF @ 3'; VA sc OD (N) 20/400 VA sc OS (D) 20/200; VA sc OS (N) 20/25 Hemoglobin AIC Results: Lab Results Component Value Date/Time HEMOGLOBIN A1C - [facility] 7.1 (H) 07/09/2019 09:40 AM HEMOGLOBIN A1C - [facility] 6.4 (H) 12/10/2018 05:11 AM HEMOGLOBIN A1C - [facility] 6.6 (H) 01/12/2015 09:13 AM documented in this encounter Plan of Treatment Upcoming Encounters Date Type Department Care Team (Late st Contact Info) Description 06/26/2025 8:15 AM EDT Office Visit Ophthalmology, [place] [address] [place] [phone] David Wang MD [address] [place] [phone] Health Maintenance Due Date Last Done Comments [...] 02/05/2021 DISCUSS TOBACCO CESSATION (REFER TO SMARTSET #3291) 05/24/2024 05/24/2023, 04/22/2022, 09/24/2018, Additional history exists Influenza Vaccine (FLU shot) (#1) 2024 07/08/2022, 07/22/2021, 08/06/2020, Additional history exists GFR 10/08/2024 10/08/2023, 04/2023, 06/30/2023, Additional history exists O2 ASSESSMENT COMPLETED IN PAST YEAR FOR COPD 10/09/2024 10/09/2023 Diabetic Eye Exam 06/25/2025 06/25/2024, , 06/08/2023, Additional history exists DTaP,Tdap,and Td Vaccines (3 - Td or [...] Not on filedocumented as of this encounter Visit Diagnoses Diagnosis Encounter for diabetes type 2 eye exam (HCC)- Primary Type II or unspecified type diabetes mellitus without mention of complication, not stated as uncontrolled Type 2 diabetes mellitus with hemoglobin A1c goal of less than 8.0% (HCC) Bullous keratopathy of right eye Bullous keratopathy Pseudophakia Lens replaced by other means documented in this encounter Advance Directives * Full Code [...] the patient have Health Care Power of Clinical Nursing Director? Yes, not currently available * Full Code Date Activated Date Inactivated Comments 12/13/2016 12:32 AM 12/14/2016 7:45 PM This order re flects the patients wishes and were consensually agreed upon. Healthcare Agents on File Name Relationship Healthcare Agent Relationshi p Communication Cheli Gill Adult Child Health Care Repr esentative (appointed verbally by patient or by statute hierarchy) Care Teams Central Sterile Supply Technician Relationship Specialty Start Date End Date Kumar Anders DO [address] [place] [id number] PCP - General 12/14/07 documented as of this encounter
--- OUTSIDE RECORDS SUMMARY | 2024-07-21 10:12 | External Medical Summary | Summary of Care ---
Author Name Unknown Organization [facility] Address [address] [place] [address] Phone [phone] Care Team Providers Care Instrument Inspector Name Role Phone Chago Kumar Yifan Primary Care Provider [phone] Reason for Visit * Reason Comments Diabetic Exam Encounter Details Date Type Department Care Team (Late st Contact Info) Description 06/25/2024 9:45 AM EDT Office Visit Ophthalmology, [place] [address] [facility] [place] [phone] David Wang MD [address] [facility] [place] [address] Encounter for diabetes type 2 eye exam ([facility])*; Type 2 diabetes mellitus with hemoglobin A1c goal of less than 8.0% ([facility]); Bullous keratopathy of right eye; Pseudophakia Allergies [...] 5 12/01/2016 Active Respiratory Therapy Supplies KIT Exara resmed airfit mask w/head gear, supply tubing, [...] - LEXY o Class D - Inhaled Diefloxgsmmcuu-UNHJ-RJFD Combination Inhaler (Trellegy) Self-Management plan o High [...] on file. PCP [facility] Coronary atherosclerosis of [place] coronary [place] ry 08/28/2011 BMI 35-39 ISOLATED [...] Wang MD - 06/25/2024 10:05 AM EDT [facility] [address] DEPARTMENT OF OPHTHALMOLOGY DIABETIC EYE EXAM PATIENT NAME: Adam Hayes (79 year old male) PRIMARY CARE PHYSICIAN: Kumar Anders, DO CC: here for diabetic eye exam HPI: DM for 13 years Lab Results Component Value Date/Time HEMOGLOBIN A1C - [facility] 7.1 (H) 07/09/2019 09:40 AM POH: see below Past Medical History: Diagnosis Date Bullous keratopathy of right eye Calculus of kidney 06/2009 Renal Calculus 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 Panzwgjzysf-Vcwvnrlvj-Ubygpv 100-62.5-25 MCG/ACT Aerosol Powder Breath Activated (Trelegy [...] Lids: dermatochalasis BUL Conjunctiva: WNL OU Pupils: PERRL; no APD EOM: Full SLIT LAMP Cornea: edema OD; clear OS Tear Film: WNL OU A/C: D/Q OU Lens: ACL OD; PCL OS Iris: WNL [...] corneal surgery --Murtaza OD BID IOL OU RTC: 1 y David Wang MD 06/25/2024 [...] 8:15 AM EDT Office Visit [place]mology, [place] [phone] David Wang MD [address] [place] [address] Health Maintenance Due Date Last Done Comments [...] 02/05/2021 DISCUSS TOBACCO CESSATION (REFER TO SMARTSET #1119) 05/24/2024 05/24/2023, 04/22/2022, 09/24/2018, Additional history exists [...] the patient have Health Care Power of Biological Scientist? Yes, not currently available * Full Code Date Activated Date Inactivated Comments 12/13/2016 12:32 AM 12/14/2016 7:45 PM This order re flects the patients wishes and were consensually agreed upon. Healthcare Agents on File Name Relationship Healthcare Agent Relationshi p Communication Cheli [place] Adult Child Health Care Repr esentative (appointed verbally by patient or by statute hierarchy) Care Teams Instrument Inspector Relationship Specialty Start Date End Date Kumar Anders DO [address] [place] [address] PCP - General 12/14/07 documented as of this encounter
--- OUTSIDE RECORDS SUMMARY | 2024-07-21 10:12 | External Medical Summary | Summary of Care ---
Author Name Unknown Organization [facility] Address [address] [place] [address] Phone [phone] Care Team Providers Care Cardiovascular Specialist Name Role Phone AndersKumar garcia Primary Care Provider [phone] Reason for Visit * Reason Onset Date Comments Medication Question 07/12/2024 Encounter Details Date Type Department Care Team (Latest Contact Info) Description 07/12/2024 Fire Chief Telephone Care Coordination and Integration [address] [place], [place] [phone] Reinaldo Copeland LPN [address] [place], [place] [phone] Medication Question Allergies Active Allergy Reactions Criticality Noted Date Comments Penicillins Hives 06/19/2009 Pentobarbital Sodium 04/10/2014 documented as of this encounter (statuses as of 07/12/2024) Medications Medication Sig Dispensed Refills Start Date [...] SUBL Active metFORMIN (GLUCOPHAGE) 500 MG Tablet Take 1 Tablet by mouth daily with breakfast. 5 12/01/2016 Active Respiratory Therapy Supplies KIT RiverOne resmed airfit mask w/head gear, supply tubing, [...] BEFORE BEDTIME. 30 mL 5 04/30/2024 Active OneTouch Ultra In Vitro Strip TEST SUGAR TWICE DAILY 05/15/2024 Active documented as of this encounter (statuses as of 07/12/2024) Active Problems Problem Noted Date Diagnosed Date [...] - LEXY o Class D - Inhaled Vvgvyhlngcntrs-CCDX-PTVZ Combination Inhaler ([place]) Self-Management plan o High frequency nebulizer treatments [...] on file. [facility]CP [facility] Coronary atherosclerosis of [place] coronary [place] ry 08/28/2011 BMI 35-39 ISOLATED (SEE ACTUAL BMI) 04/19/2010 Overview: Per Obesity Protocol, #19 SANJAY (obstructive sleep apnea) Last Assessment & Plan: Refuses CPAP documented as of this encounter (statuses as of 07/12/2024) Resolved Problems Problem Noted Date Diagnosed Date Resolved Date COPD, group C, by GOLD 2017 classification 07/18/2022 11/17/2022 Overview: Per COPD GOLD Classification COPD exacerbation 08/07/2019 04/18/2023 COPD exacerbation 03/26/2017 04/18/2023 COPD, severe 03/16/2015 07/21/2022 Overview: Per COPD GOLD Classification Respiratory failure 03/16/2015 04/18/20 23 Hypoxemia 04/18/2023 documented as of this encounter (statuses as of 07/12/2024) Immunizations Name Administration Dates Next Due COVID-19 mRNA, LNP-s, No Pre serve, 2-Dose Series (Moderna) 02/23/2021,02/05/2021 COVID-19, mRNA, LNP-s, PF, B ooster, 100mcg/0.5mg (Moderna) 10/19/2021 Pneumococcal Polysaccharide PPV23 (Pneumovax) Seasonal Influenza, High Dos e, Trivalent, PF, IM (Fluzone HD) 07/16/2018 Seasonal Influenza, Quadrivalent Hd, 65+ Yrs 11/2019 Seasonal Influenza, Trivalent, (IIV3), PF, (Fluz one) 08/06/2017 Seasonal Influenza, Trivalen t, (IIV3), with Preserv, (Fluzone) 08/05/2013 Seasonal Influenza, Trivalen t, Adjuvanted, 65+ YRS, PF, (Fluad) 07/25/2019 TDAP (age 10 and older)(Boostrix) 07/03/2022,09/2015 documented [...] the money to buy more. Never true 07/12/20 24 Within the past 12 months, t he food you bought just didn't last and you didn't have money to get more. Never true 07/12/2024 Childcare Answer Date Recorded Do you feel overwhelmed with taking care of a child, family member or friend? No 07/12/2024 Does your family need help f inding childcare? (Household - for ages 0-17 years) Not on file 07/12/2024 Clothing Answer Date Recorded Have you been unable to get clothing when it was really needed? No 07/12/2024 Is your family able to get c lothes or diapers when needed? (Household - for ages 0-17 years) Not on file 07/12/2024 Personal Safety Answer Date Recorded Do you feel unsafe or have concerns for your saf ety? No 07/12/2024 Do you have concerns for you r family's safety? (Household - for ages 0-17 years) Not on file 07/12/2024 Utilities Answer Date Recorded Do you have trouble paying y our heating, water, or electric bill? No 07/12/2024 Is your family able to pay t he heat, water, or electric bill? (Household - for ages 0-17 years) Not on file 07/12/2024 Does your family have access to good internet? (Household - for ages 0-17 years) Not on file 07/12/2024 Employment Status Answer Date Recorded Are you unemployed or without regular income? No 07/12/2024 Does the household have a re gular source of income? (Household - for ages 0-17 years) Not on file 07/12/2024 Social Connections Answer Date Recorded How often do you feel lonely or isolated from th ose around you? Never 07/12/2024 Financial Resource Strain Answer Date R ecorded Do you have any trouble payi ng for your medications, or do you think you might in the future? No 07/12/2024 Does your family have troubl e paying for medicine? (Household - for ages 0-17 years) Not on file 07/12/2024 Transportation Needs Answer Date Record ed Do you have trouble getting a ride to medical visits or work? (Adult - for ages 18 years and over) Not on file 07/12/2024 Does your family have a hard time getting a ride to doctors visits? (Household - for ages 0-17 years) Not on file 07/12/2024 Has lack of transportation k ept you from medical appointments, meetings, work, or from getting things needed for daily living? Check all that apply. No 07/12/2024 Do you (or your family) have trouble finding or paying for a ride (transportation)? (Household - for ages 0-17 years) Not on file 07/12/2024 Housing Stability Answer Date Recorded Do you currently live in a s helter or have no steady place to sleep at night? No 07/12/2024 Do you think you are at risk of becoming homeless? (Adult - for ages 18 years and over) Not on file 07/12/2024 Does your family worry about paying for your home or becoming homeless? (Household - for ages 0-17 years) Not on file 0 07/12/2024 Are you homeless or worried that you might be in the future? No 07/12/2024 Are you (or your family) armando eless or worried that you might be in the future? (Household - for ages 0-17 years) Not on file Food Insecurity Answer Date Recorded Do you need food for this week? No 07/12/2024 Are you able to get enough f ood for your family? (Household - for ages 0-17 years) Not on file 07/12/2024 Does your family need food t his week? (Household - for ages 0-17 years) Not on file 07/12/2024 Do you always have enough fo od for your family? (Household - for ages 0-17 years) Not on file 07/12/2024 Sex and Gender Information Value Date Recorded [...] No 08/07/2019 documented as of this encounter Miscellaneous Notes * Telephone Encounter - Reinaldo Copeland LPN - 07/12/2024 11:25 AM EDT Also call placed to PCP to confirm the use of torsemide 20 mg daily and Lasix 40 mg daily . Spoke to Ifrah and she states he is Not to take torsemide only Lasix 40 mg daily .Left a detailed message on requesting a call back documented in this encounter Plan of Treatment Upcoming Encounters Date Type Department Care Team (Late st Contact Info) Description 06/26/2025 8:15 AM EDT Office Visit Ophthalmology, [place] [address] [place] [address] David Wang MD [address] [place] [address] Health Maintenance Due Date Last Done Comments Diabetic Foot Exam 1963 Hepatitis C Screening 1963 Zoster Vaccines (1 of 2) 1997 Pneumococcal Vaccine: 65+ Years (2 of 2 - PCV) 08/05/2014 08/05/2013 *ADVANCE DIRECTIVE NOT ON FILE 03/19/2015 Albumin/Creatinine Ratio 01/13/2016 01/12/2015 HbA1c 01/07/2020 07/09/2019, 02/2019, 01/12/2015, Additional history exists DISCUSS TOBACCO CESSATION (REFER TO SMARTSET #3291) 05/24/2024 05/24/2023, 04/22/2022, 09/24/2018, Additional history exists COVID-19 Vaccine ( season) 2024 10/19/2021, 02/23/2021, 02/05/2021 Influenza Vaccine (FLU shot) (#1) 2024 07/08/2022, 07/22/2021, 08/06/2020, Additional history exists GFR 10/08/2024 10/08/2023, 04/2023, 06/30/2023, Additional history exists O2 ASSESSMENT COMPLETED IN PAST YEAR FOR COPD 10/09/2024 10/09/2023 Diabetic Eye Exam 06/25/2025 06/25/2024, , 06/08/2023, Additional history exists Depression Screening 07/12/2025 07/12/2024 DTap/Tdap Vaccines (3 - Td or Tdap) 07/03/2032 [...] the patient have Health Care Power of Extrusion Die Repair Manager? Yes, not currently available * Full Code Date Activated Date Inactivated Comments 12/13/2016 12:32 AM 12/14/2016 7:45 PM This order re flects the patients wishes and were consensually agreed upon. Healthcare Agents on File Name Relationship Healthcare Agent Relationshi p Communication Cheli [place] Adult Child Health Care Repr esentative (appointed verbally by patient or by statute hierarchy) Care Teams Cardiovascular Specialist Relationship Specialty Start Date End Date Kumar nAders DO [address] [place] [id number] PCP - General 12/14/07 documented as of this encounter
--- OUTSIDE RECORDS SUMMARY | 2024-07-21 10:12 | External Medical Summary | Summary of Care ---
Author Name Unknown Organization [facility] Address [address] [place] [address] Phone [phone] Care Team Providers Care Second Ride Fare Collector Name Role Phone AndersKaleb garcian Yifan Primary Care Provider [phone] Encounter Details Date Type Department Care Team (Late st Contact Info) Description 07/12/2024 Medication Management Care Coordination and Integration [address], [place] [phone] Reinaldo Copeland LPN [address], [place] [phone] Allergies Active Allergy Reactions Criticality Noted Date [...] BEFORE BEDTIME. 30 mL 5 04/30/2024 Active Profitero Ultra In Vitro Strip TEST SUGAR TWICE [...] - LEXY o Class D - Inhaled Tmqljxjkfiissc-NREN-UACE Combination Inhaler (Trellegy) Self-Management plan o High [...] on file. [facility] Coronary atherosclerosis of [place] coronary [place] ry 08/28/2011 BMI 35-39 ISOLATED [...] 06/26/2025 8:15 AM EDT Office Visit Ophthalmology, [place] [address] [address] David Wang MD [address] [address] Health Maintenance Due Date Last Done Comments Depression Screening 1957 Diabetic Foot Exam 1965 Hepatitis C Screening 1965 Zoster Vaccines (1 of 2) 1997 Pneumococcal Vaccine: 65+ Years (2 of 2 - PCV) 08/05/2014 08/05/2013 *ADVANCE DIRECTIVE NOT ON FILE 03/19/2015 Albumin/Creatinine Ratio 01/13/2016 01/12/2015 HbA1c 01/07/2020 07/09/2019, 0202/2019, 01/12/2015, Additional history exists DISCUSS TOBACCO CESSATION (REFER TO SMARTSET #3291) 05/24/2024 05/24/2023, 04/22/2022, 09/24/2018, Additional history exists COVID-19 Vaccine ( season) 2024 10/19/2021, 02/23/2021, 02/05/2021 Influenza Vaccine (FLU shot) (#1) 2024 07/08/2022, 07/22/2021, 08/06/2020, Additional history exists GFR 10/08/2024 10/08/2023, 10/0 04/2023, 06/30/2023, Additional history exists O2 ASSESSMENT COMPLETED IN PAST YEAR FOR COPD 10/09/2024 10/09/2023 Diabetic Eye Exam 06/25/2025 06/25/2024, , 06/08/2023, Additional history exists DTap/Tdap Vaccines (3 - Td or Tdap) [...] the patient have Health Care Power of Support Staff? Yes, not currently available * Full Code Date Activated Date Inactivated Comments 12/13/2016 12:32 AM 12/14/2016 7:45 PM This order re flects the patients wishes and were consensually agreed upon. Healthcare Agents on File Name Relationship Healthcare Agent Relationshi p Communication Cheli [place] Adult Child Health Care Repr esentative (appointed verbally by patient or by statute hierarchy) Care Teams Second Ride Fare Collector Relationship Specialty Start Date End Date Kumar Anders DO [address] [place] [address] PCP - General 12/14/07 documented as of this encounter
--- OUTSIDE RECORDS SUMMARY | 2024-07-21 10:13 | External Medical Summary | Summary of Care ---
Author Name Unknown Organization [facility] Address [address] [place] [address] Phone [phone] Care Team Providers Care Merchandising Professor Name Role Phone AndersKumar garcia Primary Care Provider [phone] Encounter Details Date Type Department Care Team (Late st Contact Info) Description 02/01/2024 Population Health External Data Unspecified Department Allergies Active Allergy Reactions Criticality Noted Date Comments Penicillins Hives 06/19/2009 Pentobarbital Sodium 04/10/2014 documented as of this encounter (statuses as of 02/06/2024) Medications Medication Sig Dispensed Refills Start Date End Date Status ASPIRIN 81 MG PO TABS 0 Active ATORVASTATIN CALCIUM 40 MG PO TABS one daily 0 Active Hydrocodone-Acetami nophen 10-325 MG per tablet Take 1 Tablet by mouth every 4 hours as needed. 0 06/25/2015 Active lisinopril (PRINIVIL) 5 MG Tablet Take 1 Tablet by mouth in the morning. 5 06/15/2015 Active nitroglycerin (NITROSTAT) 0.4 MG SUBL 0 Active metFORMIN (GLUCOPHAGE) 500 MG Tablet 2 [...] discontinue oxygen during daytime. 1 Each 0 04/22/2022 Active Dexilant 60 MG Oral Capsule Delayed ReleaseIndications: HTN, goal below 140/90 Take 1 Capsule by mouth in the morning. 30 Capsule 5 03/29/2023 Active Roflumilast 500 MCG Oral Tablet (Daliresp)Indicatio ns:HTN, goal below 140/90 Take 1 Tablet by mouth in the morning. 30 Tablet 5 03/29/2023 Active Sodium Chloride (Hypertonic) 5 % Ophthalmic Solution (Murtaza 128) Instill 1 Drop into the right eye in the morning and 1 Drop at noon and 1 Drop in the evening and 1 Drop before bedtime. 30 mL 5 03/30/2023 Active Ciprofloxacin HCl 0.3 % Ophthalmic Solution [...] by mouth every 6 hours as needed. 0 Active Fluticasone-Umeclid in-Vilant 100-62.5-25 MCG/ACT Aerosol Powder Breath Activated (Trelegy Ellipta)Indications :COPD, severe (HCC) Inhale 1 Puff by mouth in the morning. 1 Each 5 08/22/2023 Active Torsemide 20 MG Oral Tablet Take 2 Tablets by mouth 2 times a day in the morning and at noon. 360 Tablet 3 01/11/2024 Active Hospital, Clinic, or Other Facility Administered Medication Ordered Dose Route Frequency Start Date End Date Status Albuterol Sulfate (Proventil) (5 MG/ML) 0.5% *conc* inhalation solution 2.5 mgIndications:COPD, severe (HCC),Tobacco use disorder 2.5 mg NEBULIZER PRN 05/24/2023 05/23/2024 Active documented as of this encounter (statuses as of 02/06/2024) Active Problems Problem Noted Date Diagnosed Date [...] - LEXY o Class D - Inhaled Sfogebqjgmfgfg-WWOL-HSVG Combination Inhaler (Osmani) Self-Management plan o High [...] on file. [facility] Coronary atherosclerosis of [place] coronary [place] ry 08/28/2011 BMI 35-39 ISOLATED (SEE ACTUAL BMI) 04/19/2010 Overview: Per Obesity Protocol, #19 SANJAY (obstructive sleep apnea) Last Assessment & Plan: Refuses CPAP documented as of this encounter (statuses as of 02/06/2024) Resolved Problems Problem Noted Date Diagnosed Date Resolved Date COPD, group C, by GOLD 2017 classification 07/18/2022 11/17/2022 Overview: Per COPD GOLD Classification COPD exacerbation 08/07/2019 04/18/2023 COPD exacerbation 03/26/2017 04/18/2023 COPD, severe 03/16/2015 07/21/2022 Overview: Per COPD GOLD Classification Respiratory failure 03/16/2015 04/18/20 23 Hypoxemia 04/18/2023 documented as of this encounter (statuses as of 02/06/2024) Immunizations Name Administration Dates Next Due COVID-19 [...] money to get more. Never true 02/13/2023 Sex and Gender Information Value Date Recorded [...] Care Team (Late st Contact Info) Description 02/19/2024 9:00 AM EDT Office Visit Cardiology, [place] [address] [address] Aida Herrera CRNP [address] [address] 06/24/2024 2:00 PM EDT Office Visit Ophthalmology, [place] [address] [address] David Wang MD [address] [address] Health Maintenance Due Date Last Done Comments Depression Screening 1959 Diabetic Foot Exam 1965 Hepatitis C Screening 1965 Zoster Vaccines (1 of 2) 1997 Pneumococcal Vaccine: 65+ Years (2 of 2 - PCV) 08/05/2014 08/05/2013 *ADVANCE DIRECTIVE NOT ON FILE 03/19/2015 Albumin/Creatinine Ratio 01/13/2016 01/12/2015 HbA1c 01/07/2020 07/09/2019, 02/2019, 01/12/2015, Additional history exists COVID-19 Vaccine ( season) 2023 10/19/2021, 02/23/2021, 02/05/2021 Influenza Vaccine (FLU shot) (#1) 2023 07/08/2022, 07/22/2021, 08/06/2020, Additional history exists DISCUSS TOBACCO CESSATION (REFER TO SMARTSET #5153) 05/24/2024 05/24/2023, 04/22/2022, 09/24/2018, Additional history exists Diabetic Eye Exam 06/08/2024 06/08/2023, , 03/30/2021, Additional history exists GFR 10/08/2024 10/08/2023, 04/2023, 06/30/2023, Additional history exists O2 ASSESSMENT COMPLETED IN PAST YEAR FOR COPD 10/09/2024 10/09/2023 DTaP,Tdap,and Td Vaccines (3 - Td or Tdap) 07/03/2032 07/03/2022, 05/16/2015 Alpha-1 Antitrypsin Completed 10/10/2022 LUNG CANCER SCREENING - USE SMARTSET 96853 Completed 10/10/2022, 10/04/2021, 08/21/2021, Additional history exists GARDASIL-HPV IMMUNIZATION [...] filedocumented as of this encounter Advance Directives Latest Code Status on File Code Status Date Activated Date Inactivated Comments Full Code 08/07/2019 11:25 PM 08/08/2019 11:19 PM Thi s order reflects the patients wishes and were consensually agreed upon. Code Status History Code Status Date Activated Date Inactivated Comments Full Code 12/09/2018 8:07 PM 12/11/2018 6:14 PM This or andrea reflects the patients wishes and were consensually agreed upon. Question Answer Comments Discussion of Advance Directives occurred with: Patient Does the patient have a Living Will? Yes, not currently available No Code 11/06/2017 11:44 AM 11/08/2017 3:37 PM This o rder reflects the patients wishes and were consensually agreed upon. Question Answer Comments Discussion of Advance Directives occurred with: Patient Does the patient have a Living Will? No Does the patient have Health Care Power of Language Asst? No No Code 03/26/2017 2:59 AM 03/26/2017 2:00 PM This order reflects the patients wishes and were consensually agreed upon. Question Answer Comments Discussion of Advance Directives occurred with: Patient Does the patient have a Living Will? Yes, not currently available Does the patient have Health Care Power of Language Asst? Yes, not currently available Full Code 12/13/2016 12:32 AM 12/14/2016 7:45 PM This o rder reflects the patients wishes and were consensually agreed upon. Healthcare Agents on File Name Relationship Healthcare Agent Relationshi p Communication Cheli [place] Adult Child Health Care Repr esentative (appointed verbally by patient or by statute hierarchy) Care Teams Merchandising Professor Relationship Specialty Start Date End Date Kumar Anders DO [address] [place] [address] PCP - General 12/14/07 documented as of this encounter
--- OUTSIDE RECORDS SUMMARY | 2024-07-21 10:13 | External Medical Summary | Summary of Care ---
Author Name Unknown Organization [facility] Address [address] [place] [address] Phone [phone] Care Team Providers Care Integrated Logistics Programs Director Name Role Phone AndersKaleb garcian Yifan Primary Care Provider [phone] Reason for Visit * Reason Comments eRx-Medication Refill Encounter Details Date Type Department Care Team (Late st Contact Info) Description [facility] [address] [facility] [address] Marimar Hudson CRNP [address] [facility] [place] [address] Allergies Active Allergy Reactions Criticality Noted Date Comments Penicillins Hives 06/19/2009 Pentobarbital Sodium 04/10/2014 documented as of this encounter (statuses as of 01/29/2024) Medications Medication Sig Dispensed Refills Start Date [...] 5 12/01/2016 Active Respiratory Therapy Supplies [facility] [employer] resmed airfit mask w/head gear, supply tubing, [...] in the morning. 30 Tablet 03/29/2023 Active Sodium Chloride (Hypertonic) 5 % Ophthalmic Solution (Murtaza 128) Instill 1 Drop into the right eye in the morning and 1 Drop at noon and 1 Drop in the evening and 1 Drop before bedtime. 30 mL 03/30/2023 Active Ciprofloxacin HCl 0.3 % Ophthalmic [...] as of this encounter (statuses as of 01/29/2024) Active Problems Problem Noted Date Diagnosed Date [...] - LEXY o Class D - Inhaled Bknfyjelprseir-ZEXA-MLIN Combination Inhaler (Trellegy) Self-Management plan o High [...] on file. [facility] Coronary atherosclerosis of [place] coronary [place] ry 08/28/2011 BMI 35-39 ISOLATED (SEE ACTUAL BMI) 04/19/2010 Overview: Per Obesity Protocol, #19 SANJAY (obstructive sleep apnea) Last Assessment & Plan: Refuses CPAP documented as of this encounter (statuses as of 01/29/2024) Resolved Problems Problem Noted Date Diagnosed Date Resolved Date COPD, group C, by GOLD 2017 classification 07/18/2022 11/17/2022 Overview: Per COPD GOLD Classification COPD exacerbation 08/07/2019 04/18/2023 COPD exacerbation 03/26/2017 04/18/2023 COPD, severe 03/16/2015 07/21/2022 Overview: Per COPD GOLD Classification Respiratory failure 03/16/2015 04/18/20 23 Hypoxemia 04/18/2023 documented as of this encounter (statuses as of 01/29/2024) Immunizations Name Administration Dates Next Due COVID-19 [...] encounter Miscellaneous Notes * Telephone Encounter - Brenda Bradshaw LPN - 01/29/2024 4:33 PM EDTRefused Prescriptions: Disp Refills Gabapentin 400 MG Oral Capsule (Neurontin) 90 Cap*1 Sig: TAKE 1CAPSULE BY MOUTH BEFORE BEDRefused By: BRENDA BRADSHAW for Refusal: Managed by another maikel chinchilla * Telephone Encounter - Junie Culp RPh - 01/29/2024 2:58 PM EDTPending Prescriptions: Disp Refills Gabapentin 400 MG Oral Capsule [Pharmacy M*90 Cap*1 Sig: TAKE 1 CAPSULE BY MOUTH BEFORE BED * Telephone Encounter - Junie Culp RPh - 01/29/2024 2:16 PM EDTPending Prescriptions: Disp Refills Gabapentin 400 MG Oral Capsule [Pharmacy M*90 Cap*1 Sig: TAKE 1CAPSULE BY MOUTH BEFORE BED documented in this encounter Plan of Treatment Upcoming Encounters Date Type Department Care Team (Late st Contact Info) Description 02/19/2024 9:00 AM EDT Office Visit Cardiology, [place] [address] [address] [facility] [address] [facility] [address] 06/24/2024 2:00 PM EDT Office Visit Ophthalmology, [place] [address] [address] David Wang MD [address] [address] Health Maintenance Due Date Last Done Comments Depression Screening 1959 Diabetic Foot Exam 1965 Hepatitis C Screening 1965 Zoster Vaccines (1 of 2) 1997 Pneumococcal Vaccine: 65+ Years (2 of 2 - PCV) 08/05/2014 08/05/2013 *ADVANCE DIRECTIVE NOT ON FILE 03/19/2015 Albumin/Creatinine Ratio 01/13/2016 01/12/2015 HbA1c 01/07/2020 07/09/2019, 0202/2019, 01/12/2015, Additional history exists COVID-19 Vaccine ( season) 2023 10/19/2021, 02/23/2021, 02/05/2021 Influenza Vaccine (FLU shot) (#1) 2023 07/08/2022, 07/22/2021, 08/06/2020, Additional history exists DISCUSS TOBACCO CESSATION (REFER TO SMARTSET #5282) 05/24/2024 05/24/2023, 04/22/2022, 09/24/2018, Additional history exists Diabetic Eye Exam 06/08/2024 06/08/2023, , 03/30/2021, Additional history exists GFR 10/08/2024 10/08/2023, 04/2023, 06/30/2023, Additional history exists O2 ASSESSMENT COMPLETED IN PAST YEAR FOR COPD 10/09/2024 10/09/2023 DTaP,Tdap,and Td Vaccines (3 - Td or Tdap) 07/03/2032 07/03/2022, 05/16/2015 Alpha-1 Antitrypsin Completed 10/10/2022 LUNG CANCER SCREENING - USE SMARTSET 98939 Completed 10/10/2022, 10/04/2021, 08/21/2021, Additional history exists [...] the patient have Health Care Power of Human Resources Partner? No No Code 03/26/2017 2:59 AM 03/26/2017 2:00 PM This order reflects the patients wishes and were consensually agreed upon. Question Answer Comments Discussion of Advance Directives occurred with: Patient Does the patient have a Living Will? Yes, not currently available Does the patient have Health Care Power of Human Resources Partner? Yes, not currently available Full Code 12/13/2016 12:32 AM 12/14/2016 7:45 PM This o rder reflects the patients wishes and were consensually agreed upon. Healthcare Agents on File Name Relationship Healthcare Agent Relationshi p Communication Cheli [place] Adult Child Health Care Repr esentative (appointed verbally by patient or by statute hierarchy) Care Teams Integrated Logistics Programs Director Relationship Specialty Start Date End Date Kumar Anders DO [address] [place] [address] PCP - General 12/14/07 documented as of this encounter
--- OUTSIDE RECORDS SUMMARY | 2024-07-21 10:13 | External Medical Summary | Summary of Care ---
Author Name Unknown Organization [facility] Address [address] [place] [address] Phone [phone] Care Team Providers Care Apprentice Architect Name Role Phone Kumar Anders Primary Care Provider [phone] Encounter Details Date Type Department Care Team (Late st Contact Info) Description 03/26/2024 Population Health External Data Unspecified Department Allergies Active Allergy Reactions Criticality Noted Date Comments Penicillins Hives 06/19/2009 Pentobarbital Sodium 04/10/2014 documented as of this encounter (statuses as of 03/27/2024) Medications Medication Sig Dispensed Refills Start Date [...] as of this encounter (statuses as of 03/27/2024) Active Problems Problem Noted Date Diagnosed Date [...] - LEXY o Class D - Inhaled Vackqhejwnmvbl-IKYE-VWVV Combination Inhaler (Trellegy) Self-Management plan o High [...] on file. [facility] Coronary atherosclerosis of [place] coronary [place] ry 08/28/2011 BMI 35-39 ISOLATED (SEE ACTUAL BMI) 04/19/2010 Overview: Per Obesity Protocol, #19 SANJAY (obstructive sleep apnea) Last Assessment & Plan: Refuses CPAP documented as of this encounter (statuses as of 03/27/2024) Resolved Problems Problem Noted Date Diagnosed Date Resolved Date COPD, group C, by GOLD 2017 classification 07/18/2022 11/17/2022 Overview: Per COPD GOLD Classification COPD exacerbation 08/07/2019 04/18/2023 COPD exacerbation 03/26/2017 04/18/2023 COPD, severe 03/16/2015 07/21/2022 Overview: Per COPD GOLD Classification Respiratory failure 03/16/2015 04/18/20 23 Hypoxemia 04/18/2023 documented as of this encounter (statuses as of 03/27/2024) Immunizations Name Administration Dates Next Due COVID-19 [...] Office Visit Ophthalmology, [place] [address] [address] David Wang MD [address] [address] Health Maintenance Due Date Last Done Comments [...] the patient have Health Care Power of Drum Carrier? Yes, not currently available * Full Code Date Activated Date Inactivated Comments 12/13/2016 12:32 AM 12/14/2016 7:45 PM This order re flects the patients wishes and were consensually agreed upon. Healthcare Agents on File Name Relationship Healthcare Agent Relationshi p Communication Cheli [place] Adult Child Health Care Repr esentative (appointed verbally by patient or by statute hierarchy) Care Teams Apprentice Architect Relationship Specialty Start Date End Date Kumar Anders DO [address] [place] [id number] PCP - General 12/14/07 documented as of this encounter
--- OUTSIDE RECORDS SUMMARY | 2024-07-21 10:13 | External Medical Summary | Summary of Care ---
Author Name Unknown Organization [facility] Address [address] [place] [address] Phone [phone] Care Team Providers Care Magnet Maker Name Role Phone AndersKaleb garcian Yifan Primary Care Provider [phone] Reason for Visit * Reason Comments eRx-Medication Refill Encounter Details Date Type Department Care Team ([facility] st Contact Info) Description 04/29/2024 Refill Ophthalmology, [place] [address] [place] [address] David Wang MD [address] [place] [address] Allergies Active Allergy Reactions Criticality Noted Date Comments Penicillins Hives 06/19/2009 Pentobarbital Sodium 04/10/2014 documented as of this encounter (statuses as of 04/30/2024) Medications Medication Sig Dispensed Refills Start Date End Date Status ASPIRIN 81 MG PO TABS Active ATORVASTATIN CALCIUM 40 MG PO TABS one daily Active Hydrocodone-Aceta minophen 10-325 MG per tablet Take 1 Tablet [...] albuterol (VENTOLIN HFA) 108 (90 BASE) MCG/ACT inhalerIndication s:COPD, moderate (HCC) Inhale 2 Puffs by mouth every 4 hours as needed for Cough, Shortness of Breath, Wheezing or Dyspnea. 1 Inhaler 11 09/24/2018 Active oxygen IN GAS Continue 3L Oxygen at night daily, discontinue oxygen during daytime. 1 Each 04/22/2022 Active Dexilant 60 MG Oral Capsule Delayed ReleaseIndication s:HTN, goal below 140/90 Take 1 Capsule by mouth in the morning. 30 Capsule 03/29/2023 Active Roflumilast 500 MCG Oral Tablet (Daliresp)Indicat ions:HTN, goal below 140/90 Take 1 Tablet by [...] mouth every 6 hours as needed. Active Fluticasone-Umecl idin-Vilant 100-62.5-25 MCG/ACT Aerosol Powder Breath Activated (Trelegy Ellipta)Indicatio ns:COPD, severe (HCC) Inhale 1 Puff by mouth [...] BEFORE BEDTIME. 30 mL 5 04/30/2024 Active Sodium Chloride (Hypertonic) 5 % Ophthalmic Solution (Murtaza 128) Instill 1 Drop into the right eye in the morning and 1 Drop at noon and 1 Drop in the evening and 1 Drop before bedtime. 30 mL 5 03/30/2023 04/30/20 24 Discontinued Hospital, Clinic, or Other Facility Administered Medication [...] - LEXY o Class D - Inhaled Lxsvniriqnglul-HZZV-DONJ Combination Inhaler (Edllegy) Self-Management plan o High frequency nebulizer treatments [...] on file. [facility] Coronary atherosclerosis of [place] coronary [place] ry 08/28/2011 BMI 35-39 ISOLATED [...] encounter Miscellaneous Notes * Telephone Encounter - David Wang MD - 04/30/2024 7:37 AM EDTSigned Prescriptions: Disp Refills Sodium Chloride (Hypertonic) 5 % Ophthalmi*30 mL 5 Sig: INSTILL 1 DROP INTO THE RIGHT EYE IN THE MORNING AND 1 DROP AT NOON AND 1 DROP IN THE EVENING AND 1 DROP BEFORE BEDTIME. Authorizing Provider: DAVID WANG * Telephone Encounter - Miladys Leach COA - 04/30/2024 7:17 AM EDTPending Prescriptions: Disp Refills Sodium Chloride (Hypertonic) 5 % Ophthalmi*30 mL 5 Sig: Instill1 Drop into the right eye in the morning and 1 Drop at noon and 1 Drop in the evening and 1 Drop before bedtime. documented in this encounter Plan of Treatment Upcoming Encounters Date Type Department Care Team (Late st Contact Info) Description 06/24/2024 2:00 PM EDT Office Visit Ophthalmology, [place] [address] [address] David Wang MD [address] [address] Health Maintenance Due Date Last Done Comments Depression Screening 1957 Diabetic Foot Exam 1965 Hepatitis C Screening 1965 Zoster Vaccines (1 of 2) 1997 Pneumococcal Vaccine: 65+ Years (2 of 2 - PCV) 08/05/2014 08/05/2013 *ADVANCE DIRECTIVE NOT ON FILE 03/19/2015 Albumin/Creatinine Ratio 01/13/2016 01/12/2015 HbA1c 01/07/2020 07/09/2019, 0202/2019, 01/12/2015, Additional history exists COVID-19 Vaccine (2022- season) 2023 10/19/2021, 02/23/2021, 02/05/2021 DISCUSS TOBACCO CESSATION (REFER TO SMARTSET #4307) 05/24/2024 05/24/2023, 04/22/2022, 09/24/2018, Additional history exists [...] the patient have Health Care Power of Cat Sitter? Yes, not currently available * Full Code Date Activated Date Inactivated Comments 12/13/2016 12:32 AM 12/14/2016 7:45 PM This order re flects the patients wishes and were consensually agreed upon. Healthcare Agents on File Name Relationship Healthcare Agent Relationshi p Communication Cheli [facility] Care Repr esentative (appointed verbally by patient or by statute hierarchy) Care Teams Magnet Maker Relationship Specialty Start Date End Date Kumar Anders DO [address] [place] [address] PCP - General 12/14/07 documented as of this encounter
--- OUTSIDE RECORDS SUMMARY | 2024-07-21 10:13 | External Medical Summary ---
Author Name Unknown Address Unknown Organization K1F:[facility] - [address] [place] [address] Laboratory Report Ordering Provider Test Date Status SCOOBY HURST 02/15/2024 09:49:00 Final Cutoff Concentrations:
Drug Level
Amphetamines 500 ng/mL
Benzodiazepines 100 ng/mL
Cannabinoids 50 ng/mL
Cocaine Metabolite 150 ng/mL
Fentanyl 1 ng/mL
Hydrocodone / Hydromorphone 300 ng/mL
Methadone Metabolite 100 ng/mL
Morphine / Codeine 300 ng/mL
Oxycodone / Oxymorphone 100 ng/mL

Screening results are presumptive and can only be used for medical purposes. Positive screening results are reflexed to confirmatory testing. Observation Date Value Abnormality Reference (Units ) Status Amphetamines, Urine screen 02/15/2024 09:49:00 Negative Negative Final Benzodiazepines, Urine screen 02/15/2024 09:49:00 Negative Negative Final Cannabinoids, Urine screen 02/15/2024 09:49:00 Positive Abnormal Negative Final Cocaine Metabolite, Urine screen 02/15/2024 09:49:00 Negative Negative Final fentaNYL [Presence] in Urine by Screen method 02/15/2024 09:49:00 Negative Negative Final HYDROcodone [Presence] in Urine by Screen method 02/15/2024 09:49:00 Negative Negative Final 1-Rtsywxgann-2,5-Dimeth yl-3,3-Diphenylpyrrolid ine (EDDP) [Presence] in Urine 02/15/2024 09:49:00 Negative Negative Final Opiates, Urine screen 02/15/2024 09:49:00 Negative Negative Final oxyCODONE [Presence] in Urine by Screen method 02/15/2024 09:49:00 Negative Negative Final Performing Location [facility] - [address] [place] [address]
--- OUTSIDE RECORDS SUMMARY | 2024-07-21 10:13 | External Medical Summary ---
Author Name Unknown Address Unknown Organization K01:[facility] - [facility] [place] [address] Lalit Villareal. [facility] [id number] Laboratory Report Ordering Provider Test Date Status SCOOBY HURST 02/15/2024 09:49:00 Final Cutoff Concentration:
D rug Level
THC-COOH 10 ng/mL

This test was developed and its performance characteristics determined by [facility]. It has not been cleared or approved by the US Food and Drug Administration.
null Observation Date Value Abnormality Reference (Units ) Status METHODOLOGY 02/15/2024 09:49:00 LC-MS/MS Final Cannabinoids, Urine confirmatory 02/15/2024 09:49:00 150 Above high normal Negative (ng/mL) Final Performing Location [facility] - [facility] [place] [facility] [id number]
--- NOTE | 2024-07-21 10:40 | Emergency Department Note ---
Impression & Plan Complicated UTI (urinary tract infection), Left-sided chest pain, COPD exacerbation ED Provider Note NAME: JESSICA MCCANN AGE: 79 SEX: M : 1945 ARRIVES VIA: Walk-In INFORMANT: Patient, granddaughter ED PROVIDER(S): Mateo Parker MD CHIEF COMPLAINT: Chest pain, lower abdominal pain, dysuria MEDICAL DECISION MAKING: Patient presents due to concern for suprapubic pain dysuria and chest pain. IV was established and blood work was obtained. The patient does have wheezing noted throughout a known history of COPD. Patient was ordered DuoNeb treatments as well as IV methylprednisolone. Patient's blood work shows a white count of 12 with a normal platelet count mild anemia hemoglobin 13.3. The patient's kidney function is unremarkable. Troponin is detectable at 21.7. EKG does not show obvious signs of acute STEMI. Urinalysis does show concern for infection was ordered IV Rocephin do believe that this is the cause of the patient suprapubic pain and dysuria. Given the patient's prior history I do believe the patient would benefit from admission at this time. I did speak the on-call hospitalist service and the patient was admitted by to [facility]. Discussion w/ other healthcare providers: Violeta Almaguer PA-C and Dr. Kateryna Lawton inpatient medicine service Prior /Outside records reviewed: I reviewed the patient's medication list. Differential diagnosis: Cystitis, cardiac ischemia, aortic dissection, pulmonary embolism, pneumothorax, pneumonia, pericarditis, myocarditis, GERD, cholecystitis, pancreatitis, musculoskeletal, as well as other pathologies were considered. Diagnostics, as interpreted by me: ECG: Normal sinus rhythm, rate of 92, wide QRS, right bundle branch block pattern, left axis deviation. No ST elevations. Cardiac monitoring: An order was placed for continuous cardiac monitoring. The monitor shows a rate of 88 with sinus rhythm. Patient was placed on pulse oximetry Medical decision rules: None Imaging studies: I informally interpreted the patient's chest x-ray does not show obvious pneumothorax with formal report to follow. HPI: Patient presents due to concern for chest pain as well as suprapubic pain and burning with urination. Patient reports that his symptoms of chest pain began this morning and that his urinary symptoms began last night. Patient's granddaughter at bedside states the chest pain has been ongoing about a week and the urinary symptoms about 3 to 4 days. Patient denies any blood in the urine. Patient is a smoker known history of CAD and stents. The patient states that his pain in the chest is left-sided no associated nausea vomiting or diaphoresis and does not believe that it worsens with exertion. Patient denies any falls or trauma. Patient does complain of some suprapubic pain as well as burning with urination. Patient denies any flank pain no fevers or chills. The patient does wear oxygen at nighttime as well as with lying flat. Patient states that he does have a typical smoker's cough with a productive sputum but this is unchanged. Patient does smoke 4 to 5 packs/day. Patient does follow with a Dr. Anders in [place] PCP office. PAST MEDICAL HISTORY: See Below PAST SURGICAL HISTORY: See Below SOCIAL HISTORY: See Below HOME MEDICATIONS: See Below ALLERGIES: See Below VITALS: See Below PHYSICAL EXAMINATION: GENERAL: Appears older than stated age. EYE EXAM: Normal conjunctiva. PERRL, no anisocoria and EOM's grossly intact w/o pain. OROPHARYNX: Moist mucus membranes, grossly normal dentition. NECK: Trachea midline, no stridor. LUNGS: Wheezing throughout. Normal chest wall mechanics. HEART: NSR, no MRG. ABDOMEN: Abdomen soft, suprapubic pain without bilateral lower quadrant tenderness and no upper abdominal pain, not peritonitic, no masses, no rebound or guarding. BACK: No CVA TTP. SKIN: No rashes and no bruising. UPPER EXTREMITIES: Upper extremities are grossly normal. LOWER EXTREMITIES: Grossly normal, no edema. NEURO EXAM: A&O x3, cranial nerves II-XII grossly intact, normal speech, moves all 4 extremities. Past Med/Surg History Problem List (Updated 07/21/24 @ 16:41 by Mateo Parker MD) Stroke-like symptoms COPD exacerbation (Acute) Acute on chronic hypoxic respiratory failure Left-sided chest pain (Acute) Complicated UTI (urinary tract infection) (Acute) Sepsis Medical History Calculus of kidney Obesity (BMI 30.0-34.9) SANJAY (obstructive sleep apnea) Marijuana use Tobacco abuse Chronic hypoxic respiratory failure COPD (chronic obstructive pulmonary disease) T2DM (type 2 diabetes mellitus) CAD (coronary artery disease) HLD (hyperlipidemia) HTN (hypertension) Surgical History Hx of percutaneous left heart catheterization and 2 stents in 2007 LAD Hx laparoscopic cholecystectomy Hx of right heart catheterization 2 stents in 2005 1st and 2nd diagonal History of nasal surgery Hx of cataract extraction Hx of vasectomy Hx of tonsillectomy Family History Mother Osteoarthritis Coronary heart disease Hypertension Social History Smoking Status: Current every day smoker Tobacco Type: Cigarettes Preferred Language: Polish Feels Safe at Home: Yes Allergies Allergies Allergy/AdvReac Type Severity Reaction Status Date / Time sodium Allergy Mild intolerance Unverified 07/21/24 12:17 has to drink a lot of water Home Meds Home Medications Medication Instructions Recorded Confirmed Icy Hot 1 applic topical DIRECTED PRN 07/21/24 07/21/24 Pain albuterol sulfate 2.5 mg/3 mL 2.5 mg inhalation DIRECTED PRN 07/21/24 07/21/24 (0.083 %) solution for nebulization sob albuterol sulfate 90 mcg/actuation 2 puff inhalation Q4H PRN 07/21/24 07/21/24 aerosol inhaler cough,sob,wheezing arformoterol 15 mcg/2 mL solution 15 mcg inhalation Q12H 07/21/24 07/21/24 for nebulization (Brovana) aspirin 81 mg tablet,delayed 81 mg PO DAILY 07/21/24 07/21/24 release atorvastatin 40 mg tablet 40 mg PO DAILY 07/21/24 07/21/24 beclomethasone dipropionate 1 puff inhalation DIRECTED PRN 07/21/24 07/21/24 sob citalopram 10 mg tablet (Celexa) 10 mg PO DAILY 07/21/24 07/21/24 cyclobenzaprine 10 mg tablet 10 mg PO DAILY 07/21/24 07/21/24 diltiazem HCl 120 mg 120 mg PO DAILY 07/21/24 07/21/24 tablet,extended release 24 hr docusate sodium 100 mg capsule 100 mg PO DAILY 07/21/24 07/21/24 (Colace) fluticasone fur. 100 mcg-umeclid 1 inh inhalation QAM 07/21/24 07/21/24 62.5 mcg-vilant 25 mcg inhalat.powder (Trelegy Ellipta) furosemide 40 mg tablet 40 mg PO DAILY 07/21/24 07/21/24 hydrocodone 10 mg-acetaminophen 1 tab PO Q6H 07/21/24 07/21/24 325 mg tablet lisinopril 5 mg tablet 5 mg PO DAILY 07/21/24 07/21/24 metformin 500 mg tablet 500 mg PO QAM 07/21/24 07/21/24 nitroglycerin 0.4 mg sublingual 0.4 mg sublingual DIRECTED PRN 07/21/24 07/21/24 tablet Chest Pain polymyxin B sulfate 10,000 1 drp OPR QID 07/21/24 07/21/24 unit-trimethoprim 1 mg/mL eye drops ranitidine HCl 150 mg tablet 150 mg PO DAILY 07/21/24 07/21/24 roflumilast 500 mcg tablet 500 mcg PO DAILY 07/21/24 07/21/24 (Daliresp) sodium chloride 5 % eye drops 1 drp OPR TID 07/21/24 07/21/24 tiotropium bromide 2.5 2 puff inhalation DAILY 07/21/24 07/21/24 mcg/actuation mist for inhalation (Spiriva Respimat) Results & Data (ED) Vital Signs Vital Signs - 24 hr 07/21/24 10:07 07/21/24 10:29 07/21/24 10:29 Temperature 36.6 C Temperature Source Temporal Artery Scan Pulse Rate 95 H Pulse Rate [Apical] 104 H Respiratory Rate 18 19 Blood Pressure 152/95 H Blood Pressure [Left Arm] 142/83 H Blood Pressure Mean 114 Blood Pressure Mean [Left Arm] 102 Pulse Oximetry 96 97 97 Oxygen Delivery Method Nasal Cannula Room Air Oxygen Flow Rate 3 Sepsis Recent Fever Within 48 Hours No Sepsis New/Unexplained Change in Mental Status N/A Sepsis Action Taken by Nursing No Action Required 07/21/24 10:34 07/21/24 10:53 07/21/24 12:18 Temperature Temperature Source Pulse Rate 92 H Pulse Rate [Apical] 102 H Respiratory Rate 18 Blood Pressure Blood Pressure [Left Arm] 141/78 H Blood Pressure Mean Blood Pressure Mean [Left Arm] 99 Pulse Oximetry 98 93 Oxygen Delivery Method Nasal Cannula Nasal Cannula Oxygen Flow Rate 3 4 Sepsis Recent Fever Within 48 Hours Sepsis New/Unexplained Change in Mental Status Sepsis Action Taken by Long Term Medications Current Medication List: was personally reviewed by me Laboratory Data Attestation: I reviewed the patient's lab results. 07/21/24 10:20 07/21/24 10:20 Lab Results 07/21/24 07/21/24 07/21/24 Range/Units 10:20 10:42 10:59 WBC 12.79 H (4.8-10.8) K/ul RBC 4.45 L (4.70-6.10) M/uL Hgb 13.3 L (14.0-18.0) g/dl Hct 40.3 L (42.0-52.0) % MCV 90.6 (80.0-100.0) fL MCH 29.9 (25.0-34.0) pg MCHC 33.0 (32.0-36.0) g/dL RDW Std Deviation 42.1 (36.4-46.3) fL RDW Coeff of Aileen 12.9 (11.5-14.5) % Plt Count 154 (130-400) K/uL MPV 11.0 (9.4-12.4) fL Immature Gran % (Auto) 0.5 % Neut % (Auto) 84.0 % Lymph % (Auto) 7.0 % [place] % (Auto) 7.5 % Eos % (Auto) 0.5 % Baso % (Auto) 0.5 % Neut # (Auto) 10.75 H (1.40-6.50) K/uL Lymph # (Auto) 0.89 L (1.20-3.40) K/uL [place] # (Auto) 0.96 H (0.11-0.59) K/uL Eos # (Auto) 0.06 (0.00-0.50) K/uL Baso # (Auto) 0.06 (0.00-0.20) K/uL Immature Gran # (Auto) 0.07 (0.01-0.20) K/uL PT 10.3 (9.0-12.0) Seconds INR 0.9 (0.9-1.1) APTT 25 (21-31) Seconds PTT Ratio 0.9 Sodium 141 (136-145) mmol/L Potassium 4.5 (3.5-5.1) mmol/L Chloride 103 (98-107) mmol/L Carbon Dioxide 32 (21-32) mmol/L Anion Gap 6 (3-11) BUN 9 (6-23) mg/dl Creatinine 0.65 (0.6-1.4) mg/dl Est Cr Clr Drug Dosing 117.7 ml/min Est GFR ( Amer) 108.8 ml/min Est GFR (Non-Af Amer) 93.8 ml/min BUN/Creatinine Ratio 13.8 (10-20) Glucose 115 H (70-99(Fasting)) mg/dl Calcium 8.9 (8.6-10.3) mg/dl Total Bilirubin 0.6 (0.2-1.0) mg/dl AST 15 (13-39) U/L ALT 9 (7-52) U/L Alkaline Phosphatase 115 H (34-104) U/L Troponin I High Sens 21.7 H (0-20) pg/ml B-Natriuretic Peptide 119 H (0-100) pg/ml Total Protein 6.7 (6.0-8.3) gm/dl Albumin 3.9 (3.4-5.0) gm/dl Globulin 2.8 (2.5-4.0) gm/dl Albumin/Globulin Ratio 1.4 (0.9-2) Lipase 54 (11-82) U/L Urine Color [place] Urine Appearance Turbid A (Clear) Urine pH >= 9.0 H (4.5-7.5) Ur Specific [place] 1.015 (1.000-1.030) Urine Protein 3+ H (Negative) Urine Glucose (UA) Negative (Negative) Urine Ketones Negative (Negative) Urine Blood 3+ H (Negative) Urine Nitrite Negative (Negative) Urine Bilirubin Negative (Negative) Urine Urobilinogen Negative (Negative) Ur Leukocyte Esterase 3+ H (Negative) Urine WBC (Auto) >50 H (0-5) /hpf Urine RBC (Auto) >20 H (0-2) /hpf U Hyaline Cast (Auto) 6-10 H (0-2) /lpf U Epithel Cells (Auto) 0-2 (0-2) /hpf Urine Bacteria (Auto) 3+ H (None Seen) Adenovirus (PCR) Not Detected (NotDetected) B. pertussis DNA (PCR) Not Detected (NotDetected) B.parapertussis DNA PCR Not Detected (NotDetected) C. pneumoniae DNA (PCR) Not Detected (NotDetected) Coronavirus OC43 (PCR) Not Detected (NotDetected) Coronavirus HKU1 (PCR) Not Detected (NotDetected) Coronavirus 229E (PCR) Not Detected (NotDetected) SARS-CoV-2 (PCR) Not Detected (NotDetected) Coronavirus NL63 (PCR) Not Detected (NotDetected) Human Metapneumovir PCR Not Detected (NotDetected) Influenza Type A (PCR) Not Detected (NotDetected) Influenza Type B (PCR) Not Detected (NotDetected) M. pneumoniae (PCR) Not Detected (NotDetected) Parainfluenza 1 (PCR) Not Detected (NotDetected) Parainfluenza 2 (PCR) Not Detected (NotDetected) Parainfluenza 3 (PCR) Not Detected (NotDetected) Parainfluenza 4 (PCR) Not Detected (NotDetected) RSV (PCR) Not Detected (NotDetected) Entero/Rhino (PCR) Not Detected (NotDetected) 07/21/24 Range/Units 12:21 WBC (4.8-10.8) K/ul RBC (4.70-6.10) M/uL Hgb (14.0-18.0) g/dl Hct (42.0-52.0) % MCV (80.0-100.0) fL MCH (25.0-34.0) pg MCHC (32.0-36.0) g/dL RDW Std Deviation (36.4-46.3) fL RDW Coeff of Aileen (11.5-14.5) % Plt Count (130-400) K/uL MPV (9.4-12.4) fL Immature Gran % (Auto) % Neut % (Auto) % Lymph % (Auto) % [place] % (Auto) % Eos % (Auto) % Baso % (Auto) % Neut # (Auto) (1.40-6.50) K/uL Lymph # (Auto) (1.20-3.40) K/uL [place] # (Auto) (0.11-0.59) K/uL Eos # (Auto) (0.00-0.50) K/uL Baso # (Auto) (0.00-0.20) K/uL Immature Gran # (Auto) (0.01-0.20) K/uL PT (9.0-12.0) Seconds INR (0.9-1.1) APTT (21-31) Seconds PTT Ratio Sodium (136-145) mmol/L Potassium (3.5-5.1) mmol/L Chloride (98-107) mmol/L Carbon Dioxide (21-32) mmol/L Anion Gap (3-11) BUN (6-23) mg/dl Creatinine (0.6-1.4) mg/dl Est Cr Clr Drug Dosing ml/min Est GFR ( Amer) ml/min Est GFR (Non-Af Amer) ml/min BUN/Creatinine Ratio (10-20) Glucose (70-99(Fasting)) mg/dl Calcium (8.6-10.3) mg/dl Total Bilirubin (0.2-1.0) mg/dl AST (13-39) U/L ALT (7-52) U/L Alkaline Phosphatase (34-104) U/L Troponin I High Sens 17.6 D (0-20) pg/ml B-Natriuretic Peptide (0-100) pg/ml Total Protein (6.0-8.3) gm/dl Albumin (3.4-5.0) gm/dl Globulin (2.5-4.0) gm/dl Albumin/Globulin Ratio (0.9-2) Lipase (11-82) U/L Urine Color Urine Appearance (Clear) Urine pH (4.5-7.5) Ur Specific [place] (1.000-1.030) Urine Protein (Negative) Urine Glucose (UA) (Negative) Urine Ketones (Negative) Urine Blood (Negative) Urine Nitrite (Negative) Urine Bilirubin (Negative) Urine Urobilinogen (Negative) Ur Leukocyte Esterase (Negative) Urine WBC (Auto) (0-5) /hpf Urine RBC (Auto) (0-2) /hpf U Hyaline Cast (Auto) (0-2) /lpf U Epithel Cells (Auto) (0-2) /hpf Urine Bacteria (Auto) (None Seen) Adenovirus (PCR) (NotDetected) B. pertussis DNA (PCR) (NotDetected) B.parapertussis DNA PCR (NotDetected) C. pneumoniae DNA (PCR) (NotDetected) Coronavirus OC43 (PCR) (NotDetected) Coronavirus HKU1 (PCR) (NotDetected) Coronavirus 229E (PCR) (NotDetected) SARS-CoV-2 (PCR) (NotDetected) Coronavirus NL63 (PCR) (NotDetected) Human Metapneumovir PCR (NotDetected) Influenza Type A (PCR) (NotDetected) Influenza Type B (PCR) (NotDetected) M. pneumoniae (PCR) (NotDetected) Parainfluenza 1 (PCR) (NotDetected) Parainfluenza 2 (PCR) (NotDetected) Parainfluenza 3 (PCR) (NotDetected) Parainfluenza 4 (PCR) (NotDetected) RSV (PCR) (NotDetected) Entero/Rhino (PCR) (NotDetected) Administered Medications Discontinued Medications Albuterol (Albut/Ipratrop 3mg/0.5mg Neb 3 Ml Vial) 3 ml INH NOW STA Stop: 07/21/24 10:38 Last Admin: 07/21/24 10:47 Dose: 3 ml Documented By: ML Magnesium Sulfate/Dextrose (Magnesium Sulfate / D5w) 1 gm in 100 mls @ 100 mls/hr IV NOW STA Stop: 07/21/24 11:37 Last Infusion: 07/21/24 11:47 Dose: Infused Documented By: Admin: 07/21/24 10:47 Dose: 100 mls/hr Documented By: ML Ceftriaxone Sodium (Rocephin) 2,000 mg in 50 mls @ 100 mls/hr IV NOW STA Stop: 07/21/24 12:56 Last Infusion: 07/21/24 13:28 Dose: Infused Documented By: Admin: 07/21/24 12:46 Dose: 100 mls/hr Documented By: MMF Methylprednisolone (Methylprednisolone 125 Mg/2 Ml Vial) 125 mg IV NOW STA Stop: 07/21/24 10:38 Last Admin: 07/21/24 10:47 Dose: 125 mg Documented By: ML Morphine Sulfate (Morphine Sulfate 4 Mg/Ml 1 Ml Carp\Vial) 4 mg IV NOW STA Stop: 07/21/24 12:28 Last Admin: 07/21/24 12:46 Dose: 4 mg Documented By: [facility] Imaging Data Radiologist's Impression: Chest X-Ray 07/21/24 10:36 XR chest 1V portable CLINICAL HISTORY: Chest pain, nonspecific TECHNIQUE: Single frontal radiograph of the chest was obtained. Comparison: None available at the time of this dictation. FINDINGS: No lines and tubes are seen. The cardiomediastinal silhouette is normal. Linear atelectasis is seen in the bilateral lung bases. No evidence of pleural effusion or pneumothorax. IMPRESSION: Linear atelectasis is in the bilateral lung bases. No acute abnormality is otherwise seen. ACT 112: Negative or not required by law. Electronically signed by: Kris Lucas M.D. 07/21/2024 11:[address] 07/21/24 13:32 CT chest diagnostic wo con CLINICAL HISTORY: worsened hypoxia TECHNIQUE: Multidetector row helical CT of the chest was performed. Coronal and sagittal reformations were obtained. Automated dose lowering techniques and/or adjustment according to patient size were utilized for this exam. CT DOSE: 1465.89 mGy.cm Comparison: Comparison is made to chest radiograph 07/21/2024 FINDINGS: Lungs and pleura: Atelectasis versus scarring is seen in the dependent portions of the lungs. Mild biapical scarring and paraseptal emphysema are seen. Bronchial wall thickening with mucous plugging noted. Heart and pericardium: Aortic valvular calcifications are seen. Vessels: Severe atherosclerotic changes in the aorta and coronary arteries. Mediastinum and annette: Unremarkable. Chest wall and lower neck: Gynecomastia is noted bilaterally. Abdomen: A hiatal hernia is seen. Bones: Degenerative changes in the thoracic spine. Right lateral rib fractures appear chronic. IMPRESSION: Bronchial wall thickening and mucous plugging are compatible with infectious/inflammatory airways disease. No evidence of pneumonia. Atelectasis in the bilateral lung bases. ACT 112: Negative or not required by law. Electronically signed by: Kris Lucas M.D. 07/21/2024 2:[address] 07/21/24 13:32 CT head/brain wo con CLINICAL HISTORY: stroke like sx Technique: Contiguous axial CT images of the head were acquired from the base of the skull to the vertex without intravenous contrast administration. Images were viewed in brain, subdural and bone windows. Automated dose lowering techniques and/or adjustment according to patient size were utilized for this exam. Comparison: None available at the time of this dictation. Findings: Areas of decreased attenuation are present in the periventricular and subcortical white matter bilaterally consistent with small vessel ischemic disease. Generalized cerebral volume loss with commensurate enlargement of the ventricles, sulci, and cisterns is also present. Encephalomalacia is in the left insular white matter. Imaged portions of the paranasal sinuses and mastoid air cells are clear. The orbits appear normal. There are no acute fractures of the calvaria or scalp swelling. 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 No evidence of acute infarct. ACT 112: Negative or not required by law. Electronically signed by: Kris Lucas M.D. 07/21/2024 2:35 PM Discharge Plan Visit Data Chief Complaint: Chest Pain Stated Complaint: CHEST AND KIDNEY PAIN ED Provider: Mateo Parker Discharge Problem: Complicated UTI (urinary tract infection), Left-sided chest pain, COPD exacerbation Patient Disposition: Admitted As Inpatient Discharge Instructions Interventions: ED Discharge Assessment Last Done: 07/21/24 15:04
[2024-07-21] MEDS: methylPREDNISolone 125 MG/2 ML VIAL IV STA (10:47)
[2024-07-21] MEDS: ALBUT/IPRATROP 3MG/0.5MG NEB 3 ML VIAL INH STA (10:47)
[2024-07-21] MEDS: MAGNESIUM SULFATE / D5W 1 GM/100 ML BAG IV STA (10:47)
[2024-07-21 11:01] LABS: Basophils # (auto) 0.06 K/uL (0.00-0.20); Basophils % (auto) 0.5 %; Eosinophils # (auto) 0.06 K/uL (0.00-0.50); Eosinophils % (auto) 0.5 %; Hematocrit (blood only) 40.3 % (42.0-52.0); Hemoglobin 13.3 g/dl (14.0-18.0); Immature Granulocytes # (auto) 0.07 K/uL (0.01-0.20); Immature Granulocytes % (auto) 0.5 %; Lymphocytes # (auto) 0.89 K/uL (1.20-3.40); Mean Corpuscular Hemoglobin 29.9 pg (25.0-34.0); Mean Corpuscular Volume 90.6 fL (80.0-100.0); Monocytes # (auto) 0.96 K/uL (0.11-0.59); Monocytes % (auto) 7.5 %; Neutrophils # (auto) 10.75 K/uL (1.40-6.50); Platelet Count 154 K/uL (130-400); RDW Coefficient of Variation 12.9 % (11.5-14.5); RDW Standard Deviation 42.1 fL (36.4-46.3); Red Blood Count 4.45 M/uL (4.70-6.10); White Blood Count 12.79 K/ul (4.8-10.8)
[2024-07-21 11:10] LABS: Albumin Globulin Ratio 1.4 (0.9-2); Albumin Level 3.9 gm/dl (3.4-5.0); BUN Creatinine Ratio 13.8 (10-20); Bilirubin,Total 0.6 mg/dl (0.2-1.0); Calcium 8.9 mg/dl (8.6-10.3); Creatinine Clr Calc Pharmacy 117.7 ml/min; Est GFR (African American) 108.8 ml/min; Est GFR (Non-African American) 93.8 ml/min; Globulin 2.8 gm/dl (2.5-4.0); Potassium 4.5 mmol/L (3.5-5.1); Total Protein 6.7 gm/dl (6.0-8.3)
[2024-07-21 11:16] LABS: Troponin I High Sensitivity 21.7 pg/ml (0-20)
[2024-07-21 11:18] LABS: INR 0.9 (0.9-1.1); Partial Thromboplastin Ratio 0.9; Partial Thromboplastin Time 25 Seconds (21-31); Prothrombin Time 10.3 Seconds (9.0-12.0)
--- NOTE | 2024-07-21 11:26 | XRay Report ---
XR chest 1V portable CLINICAL HISTORY: Chest pain, nonspecific TECHNIQUE: Single frontal radiograph of the chest was obtained. Comparison: None available at the time of this dictation. FINDINGS: No lines and tubes are seen. The cardiomediastinal silhouette is normal. Linear atelectasis is seen i n the bilateral lung bases. No evidence of pleural effusion or pneumothorax. IMPRESSION: Linear atelectasis is in the bilateral lung bases. No acute abnormality is otherwise seen. ACT 112: Negative or not required by law. Electronically signed by: Kris Lucas M.D. 07/21/2024 11:25 AM
[2024-07-21 11:27] LABS: Appearance Urine Turbid (Clear); Bacteria Urine Automated 3+ (None Seen); Bilirubin Urine Negative (Negative); Blood Urine 3+ (Negative); Color Urine Orange; Epithelial Cell Urine Auto 0-2 /hpf (0-2); Glucose Urine UA Negative (Negative); Ketones Urine Negative (Negative); Leukocyte Esterase Urine 3+ (Negative); Nitrite Urine Negative (Negative); Protein Urine 3+ (Negative); RBC Urine Automated >20 /hpf (0-2); Specific Gravity Urine 1.015 (1.000-1.030); Urobilinogen Urine Negative (Negative); WBC Urine Automated >50 /hpf (0-5); pH Urine >= 9.0 (4.5-7.5)
[2024-07-21 11:55] LABS: Adenovirus PCR Not Detected (NotDetected); Bordetella parapertussis PCR Not Detected (NotDetected); Bordetella pertussis PCR Not Detected (NotDetected); Chlamydia pneumoniae PCR Not Detected (NotDetected); Coronavirus 229E PCR Not Detected (NotDetected); Coronavirus CoV-2 (COVID19)PCR Not Detected (NotDetected); Coronavirus HKU1 PCR Not Detected (NotDetected); Coronavirus NL63 PCR Not Detected (NotDetected); Coronavirus OC43PCR Not Detected (NotDetected); Human Metapneumovirus PCR Not Detected (NotDetected); Influenza A PCR Not Detected (NotDetected); Influenza B PCR Not Detected (NotDetected); Mycoplasma pneumoniae PCR Not Detected (NotDetected); Parainfluenza Virus 1 PCR Not Detected (NotDetected); Parainfluenza Virus 2 PCR Not Detected (NotDetected); Parainfluenza Virus 3 PCR Not Detected (NotDetected); Parainfluenza Virus 4 PCR Not Detected (NotDetected); Respiratory Syncytial VirusPCR Not Detected (NotDetected); Rhinovirus/Enterovirus PCR Not Detected (NotDetected)
[2024-07-21] MEDS: MoRPHine SULFATE 4 MG/ML 1 ML CARP\\VIAL IV STA (12:46)
[2024-07-21] MEDS: cefTRIAXone SODIUM 2,000 MG/50 ML BAG IV STA (12:46)
--- NOTE | 2024-07-21 12:59 | History & Physical Report ---
<Statement entered by Valdez Vega MD - 07/21/24 14:10> Attending Addendum: Case reviewed with the advanced practitioner. I have personally performed a history and physical examination on the patient. I have reviewed the advanced practitioner's documentation on the date of service referenced in note, and I agree with, and take responsibility for the plan of care. Main complaint is UTI, will tx with IV rocephin. Also with chronic cardio/neurovascular and pulmonary dx including CAD s/p multiple stents, slight trop leak here, hx CVA and stroke like symptoms recently as well as COPD 2/2 heavy smoking. Trend trops, consult cardio, CT head, consider MRI. Date of Service July 21, 2024 Assessment & Plan (1) Sepsis: (2) Complicated UTI (urinary tract infection): (3) Left-sided chest pain: (4) Acute on chronic hypoxic respiratory failure: (5) COPD exacerbation: (6) Stroke-like symptoms: (7) CAD (coronary artery disease): (8) T2DM (type 2 diabetes mellitus): (9) Tobacco abuse: (10) SANJAY (obstructive sleep apnea): (11) Obesity (BMI 30.0-34.9): Plan This is a 79 yr old M who has a significant PMH of Chronic Hypoxic respiratory failure on chronic oxygen therapy, SANJAY, COPD, Right heart failure, CAD with hx of angioplasty and total of 4 stents, HTN, HLD, Chronic RBBB, tobacco abuse, marijuana abuse, hx of cva who presents to ED 2/2 suprapubic pain x 1 week. 2 granddaughters are at bedside who help elicit history. He is from [facility] and he does not visit the hospital frequently unless absolutely necessary. He reports a wide range of sx that has been on going for the last 3 weeks. Sepsis - leukocytosis and tachycardic on arrival, UA concerning for UTI Complicated UTI admit to Service Route IV rocephin no clinical indication for resuscitation, BP adequate await urine culture, obtain blood culture Pt w/o CVA tenderness but c/o flank pain - if continues low threshold for CT abd/pelvis L sided chest pain CAD - hx of stent placement in 2005 (1st and 2nd diagonal) and 2007 ( 2 in LAD) Chronic R sided heart failure on asa, statin, diltiazem, lisinopril, lasix initial trop elevated, 2 hr trop normal will cycle trops, update echo follows [facility] cardiology - will consult to determine if would benefit from nuclear stress test given multiple co morbidities SANJAY Acute/Chronic Hypoxic resp failure possible COPD exac typically wears 3L at HS, is suppose to wear all day but is noncompliant currently requiring 4L obtain CT chest duonebs, budesonide neb, incentive spirometry, muccinex, sputum culture tx with course of azithromycin possible steroids depending on CT chest Stroke like sx - occurred 3 weeks ago - family reports facial drop, confusion, difficulty speaking and resolved after ~ [address] head continue asa, statin family reports hx of CVA in the past currently no stroke like sx obtain lipid panel in a.m., adequate BP control T2DM- chronic, stable, hold metformin, a1c in a.m., NovoLog per protocol Tobacco/marijuana abuse: chronic, encourage cessation, pt declines nicotine patch, smokes 2-3ppd R eye blindness: continue eye gtts Obesity: BMI 30.5,encourage diet, lifestyle modifications DVT ppx: SQ Heparin FULL CODE PCP: Kumar Anders Dispo: admit to med tele, PT/OT, pt requested power wheel chair will defer to CM Pt was seen and examined in collaboration with Dr. Vega, please addendum A total of 55 minutes was spent coordinating, documenting, and providing care for this patient excluding time spent in the performance of separately billed services. This included personally viewing all current laboratories and imaging studies, medication reconciliation, outpatient chart review, and discussion with specialists. History of Present Illness Chief Complaint: Suprapubic pain x 1 week. Primary Care Provider: Kumar Anders DO This is a 79 yr old M who has a significant PMH of Chronic Hypoxic respiratory failure on chronic oxygen therapy, SANJAY, COPD, Right heart failure, CAD with hx of angioplasty and total of 4 stents, HTN, HLD, Chronic RBBB, tobacco abuse, marijuana abuse, hx of cva who presents to ED 2/2 suprapubic pain x 1 week. 2 granddaughters are at bedside who help elicit history. He is from [facility] and he does not visit the hospital frequently unless absolutely necessary. He reports a wide range of sx that has been on going for the last 3 weeks. 1. Suprapubic pain - off and on for last 1 week, but worsening over last 3 days. Now with associated L flank pain. Pain worse with movement. He also complains of dysuria. Hx of UTI before. Denies christofer fevers but has been chilled. 2. Chest pain - off and on last 3 weeks. L sided, non radiating. Sx would last seconds to minutes and resolve on own. He tried NTG once but it is very old and did not work. Sx occur at rest as he does not exert himself. Once they come on he goes and lays in bed for an hour and rests, gets up smokes a cigarette or two and sx are resolved. Over the last 2-3 days sx occurring more frequently and he is getting more SOB with it. He does have associated lightheadedness, but not pre syncope or dizzy. He denies any diaphoresis. 3. Worsened SOB: has chronic SOB. Chronic smoking/marijuana user. "I'm 79 what else am I suppose to do." Has chronic purulent sputum production. This is the same and not worse. 3. Stroke like sx occurred 3 weeks ago. Granddaughter witnessed slurred speech, L facial droop and confusion. Pt refused evaluation. He went and laid down. After 1 hour sx improved but not resolved. After ~ 1/2 a day sx resolved on own. He admits to hx of strokes in the past. No deficit per pt. Currently he denies any stroke like sx. At baseline he needs assistance for walking. He would like a power chair. He is compliant with his medications. He states his father in 50s from [place]. "He has 16 kids i'm sure that played a part in that." IN ED pt was found to have a UTI tx with IV rocephin. CXR negative. He met criteria for sepsis given tachycardia and leukocytosis. He also received IV solumedrol and nebs. Allergies Allergy/AdvReac Type Severity Reaction Status Date / Time sodium Allergy Mild intolerance Unverified 07/21/24 12:17 has to drink a lot of water Home Medications Medication Instructions Recorded Confirmed Type Icy Hot 1 applic topical DIRECTED PRN 07/21/24 07/21/24 History Pain albuterol sulfate 2.5 mg/3 mL 2.5 mg inhalation DIRECTED PRN 07/21/24 07/21/24 History (0.083 %) solution for nebulization sob albuterol sulfate 90 mcg/actuation 2 puff inhalation Q4H PRN 07/21/24 07/21/24 History aerosol inhaler cough,sob,wheezing arformoterol 15 mcg/2 mL solution 15 mcg inhalation Q12H 07/21/24 07/21/24 History for nebulization (Brovana) aspirin 81 mg tablet,delayed 81 mg PO DAILY 07/21/24 07/21/24 History release atorvastatin 40 mg tablet 40 mg PO DAILY 07/21/24 07/21/24 History beclomethasone dipropionate 1 puff inhalation DIRECTED PRN 07/21/24 07/21/24 History sob citalopram 10 mg tablet (Celexa) 10 mg PO DAILY 07/21/24 07/21/24 History cyclobenzaprine 10 mg tablet 10 mg PO DAILY 07/21/24 07/21/24 History diltiazem HCl 120 mg 120 mg PO DAILY 07/21/24 07/21/24 History tablet,extended release 24 hr docusate sodium 100 mg capsule 100 mg PO DAILY 07/21/24 07/21/24 History (Colace) fluticasone fur. 100 mcg-umeclid 1 inh inhalation QAM 07/21/24 07/21/24 History 62.5 mcg-vilant 25 mcg inhalat.powder (Trelegy Ellipta) furosemide 40 mg tablet 40 mg PO DAILY 07/21/24 07/21/24 History hydrocodone 10 mg-acetaminophen 1 tab PO Q6H 07/21/24 07/21/24 History 325 mg tablet lisinopril 5 mg tablet 5 mg PO DAILY 07/21/24 07/21/24 History metformin 500 mg tablet 500 mg PO QAM 07/21/24 07/21/24 History nitroglycerin 0.4 mg sublingual 0.4 mg sublingual DIRECTED PRN 07/21/24 07/21/24 History tablet Chest Pain polymyxin B sulfate 10,000 1 drp OPR QID 07/21/24 07/21/24 History unit-trimethoprim 1 mg/mL eye drops ranitidine HCl 150 mg tablet 150 mg PO DAILY 07/21/24 07/21/24 History roflumilast 500 mcg tablet 500 mcg PO DAILY 07/21/24 07/21/24 History (Daliresp) sodium chloride 5 % eye drops 1 drp OPR TID 07/21/24 07/21/24 History tiotropium bromide 2.5 2 puff inhalation DAILY 07/21/24 07/21/24 History mcg/actuation mist for inhalation (Spiriva Respimat) Past Med/Surg History Problem List (Updated 07/21/24 @ 13:45 by Violeta Benavides PA-C) Stroke-like symptoms COPD exacerbation Acute on chronic hypoxic respiratory failure Left-sided chest pain Complicated UTI (urinary tract infection) Sepsis Medical History Calculus of kidney Obesity (BMI 30.0-34.9) SANJAY (obstructive sleep apnea) Marijuana use Tobacco abuse Chronic hypoxic respiratory failure COPD (chronic obstructive pulmonary disease) T2DM (type 2 diabetes mellitus) CAD (coronary artery disease) HLD (hyperlipidemia) HTN (hypertension) Surgical History Hx of percutaneous left heart catheterization and 2 stents in 2007 LAD Hx laparoscopic cholecystectomy Hx of right heart catheterization 2 stents in 2005 1st and 2nd diagonal History of nasal surgery Hx of cataract extraction Hx of vasectomy Hx of tonsillectomy Family History Mother Osteoarthritis Coronary heart disease Hypertension Social History Smoking Status: Current every day smoker Tobacco Type: Cigarettes Preferred Language: [place] Feels Safe at Home: Yes Review of Systems Review of Systems: All systems reviewed & are unremarkable except as noted in HPI & below Results & Data Results & Data Vital Signs (Past 12 Hours) Vital Signs Temp Pulse Pulse Resp BP BP Pulse Ox 07/21/24 12:18 102 H 18 141/78 H 93 07/21/24 10:53 98 07/21/24 10:34 92 H 07/21/24 10:29 104 H 19 142/83 H 97 07/21/24 10:29 97 07/21/24 10:07 36.6 C 95 H 18 152/95 H 96 O2 Del Method O2 Flow Rate 07/21/24 12:18 Nasal Cannula 4 07/21/24 10:53 Nasal Cannula 3 07/21/24 10:34 07/21/24 10:29 Room Air 07/21/24 10:29 Nasal Cannula 3 07/21/24 10:07 Laboratory Results I have independently reviewed and interpreted patient's admitting labs including CBC, CMP, PTT, PT/INR, mag, UA, resp biorefire, lipase, bnp and troponin. Diagnostic Findings Chest X-Ray 07/21/24 10:36 XR chest 1V portable CLINICAL HISTORY: Chest pain, nonspecific TECHNIQUE: Single frontal radiograph of the chest was obtained. Comparison: None available at the time of this dictation. FINDINGS: No lines and tubes are seen. The cardiomediastinal silhouette is normal. Linear atelectasis is seen in the bilateral lung bases. No evidence of pleural effusion or pneumothorax. IMPRESSION: Linear atelectasis is in the bilateral lung bases. No acute abnormality is otherwise seen. ACT 112: Negative or not required by law. Electronically signed by: Kris Lucas M.D. 07/21/2024 11:25 AM Medications Administered Medication List Discontinued Medications Albuterol (Albut/Ipratrop 3mg/0.5mg Neb 3 Ml Vial) 3 ml INH NOW STA Stop: 07/21/24 10:38 Last Admin: 07/21/24 10:47 Dose: 3 ml Documented By: ML Magnesium Sulfate/Dextrose (Magnesium Sulfate / D5w) 1 gm in 100 mls @ 100 mls/hr IV NOW STA Stop: 07/21/24 11:37 Last Infusion: 07/21/24 11:47 Dose: Infused Documented By: Admin: 07/21/24 10:47 Dose: 100 mls/hr Documented By: ML Ceftriaxone Sodium (Rocephin) 2,000 mg in 50 mls @ 100 mls/hr IV NOW STA Stop: 07/21/24 12:56 Last Admin: 07/21/24 12:46 Dose: 100 mls/hr Documented By: MMF Methylprednisolone (Methylprednisolone 125 Mg/2 Ml Vial) 125 mg IV NOW STA Stop: 07/21/24 10:38 Last Admin: 07/21/24 10:47 Dose: 125 mg Documented By: ML Morphine Sulfate (Morphine Sulfate 4 Mg/Ml 1 Ml Carp\\Vial) 4 mg IV NOW STA Stop: 07/21/24 12:28 Last Admin: 07/21/24 12:46 Dose: 4 mg Documented By: MMF ECG Additional Comments: I have independently reviewed and interpreted patient's admitting EKG which revealed: NSR, 92bpm, Bifasicular block, qtc 467ms COVID-19 Results Results COVID-19 Adm Lab Results: RBC 4.45 M/uL (4.70-6.10) L 07/21/24 WBC 12.79 K/ul (4.8-10.8) H 07/21/24 Hgb 13.3 g/dl (14.0-18.0) L 07/21/24 Hct 40.3 % (42.0-52.0) L 07/21/24 Plt Count 154 K/uL (130-400) 07/21/24 Neutrophils (%) (Auto) 84.0 % 07/21/24 Lymphocytes (%) (Auto) 7.0 % 07/21/24 Monocytes # (Auto) 0.96 K/uL (0.11-0.59) H 07/21/24 Eosinophils # (Auto) 0.06 K/uL (0.00-0.50) 07/21/24 Immature Granulocyte % (Auto) 0.5 % 07/21/24 Neutrophils # (Auto) 10.75 K/uL (1.40-6.50) H 07/21/24 Lymphocytes # (Auto) 0.89 K/uL (1.20-3.40) L 07/21/24 Monocytes # (Auto) 0.96 K/uL (0.11-0.59) H 07/21/24 Eosinophils # (Auto) 0.06 K/uL (0.00-0.50) 07/21/24 Basophils # (Auto) 0.06 K/uL (0.00-0.20) 07/21/24 Immature Granulocyte # (Auto) 0.07 K/uL (0.01-0.20) 4 Na 141 mmol/L (136-145) 07/21/24 K 4.5 mmol/L (3.5-5.1) 07/21/24 Cl 103 mmol/L (98-107) 07/21/24 CO2 32 mmol/L (21-32) 07/21/24 Anion Gap 6 (3-11) 07/21/24 BUN 9 mg/dl (6-23) 07/21/24 Creatinine 0.65 mg/dl (0.6-1.4) 07/21/24 BUN/Creatinine Ratio 13.8 (10-20) 07/21/24 Glucose Level 115 mg/dl (70-99(Fasting)) H 07/21/24 Ca 8.9 mg/dl (8.6-10.3) 07/21/24 Total Bilirubin 0.6 mg/dl (0.2-1.0) 07/21/24 AST/SGOT 15 U/L (13-39) 07/21/24 ALT/SGPT 9 U/L (7-52) 07/21/24 Alkaline Phosphatase 115 U/L (34-104) H 07/21/24 Total Protein 6.7 gm/dl (6.0-8.3) 07/21/24 Albumin 3.9 gm/dl (3.4-5.0) 07/21/24 Globulin 2.8 gm/dl (2.5-4.0) 07/21/24 Albumin/Globulin Ratio 1.4 (0.9-2) 07/21/24 PTT 25 Seconds (21-31) 07/21/24 INR 0.9 (0.9-1.1) 07/21/24 Adenovirus (PCR) Not Detected (NotDetected) 07/21/24 B. parapertussis DNA (PCR) Not Detected (NotDetected) 07/07 03/29 B. pertussis DNA (PCR) Not Detected (NotDetected) 07/21/24 C. pneumoniae DNA (PCR) Not Detected (NotDetected) 4 Coronavirus Type OC43 (PCR) Not Detected (NotDetected) Coronavirus Type HKU1 (PCR) Not Detected (NotDetected) Coronavirus Type 229E (PCR) Not Detected (NotDetected) COVID-19 PCR Not Detected (NotDetected) 07/21/24 Coronavirus Type NL63 (PCR) Not Detected (NotDetected) Human Metapneumovirus (PCR) Not Detected (NotDetected) Influenza Virus Type A (PCR) Not Detected (NotDetected) Influenza Virus Type B (PCR) Not Detected (NotDetected) M. pneumoniae (PCR) Not Detected (NotDetected) 07/21/24 Parainfluenza Type 1 (PCR) Not Detected (NotDetected) 07/07 03/29 Parainfluenza Type 2 (PCR) Not Detected (NotDetected) 07/07 03/29 Parainfluenza Type 3 (PCR) Not Detected (NotDetected) 07/07 03/29 Parainfluenza Type 4 (PCR) Not Detected (NotDetected) 07/07 03/29 RSV (PCR) Not Detected (NotDetected) 07/21/24 Enterovirus/Rhinovirus (PCR) Not Detected (NotDetected) Chest X-Ray 07/21/24 Code Status & VTE Plan Code Status FULL CODE VTE Prophylaxis Plan VTE Prophylaxis will be ordered: Yes
--- NOTE | 2024-07-21 14:37 | CT Scan Report ---
CT head/brain wo con CLINICAL HISTORY: stroke like sx Technique: Contiguous axial CT images of the head were acquired from the base of the skull to the angeli joseph without intravenous contrast administration. Images were viewed in brain, subdural and bone [facility]. Automated dose lowering techniques and/or adjustment according to patient size were utilized for this exam. Comparison: None available at the time of this dictation. Findings: Areas of decreased attenuation are present in the periventricular and subcortical white matter bilate rally consistent with small vessel ischemic disease. Generalized cerebral volume loss with commensura te enlargement of the ventricles, sulci, and cisterns is also present. Encephalomalacia is in the lef t insular white matter. Imaged portions of the paranasal sinuses and mastoid air cells are clear. The orbits appear normal. There are no acute fractures of the calvaria or scalp swelling. 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 No evid ence of acute infarct. ACT 112: Negative or not required by law. Electronically signed by: Kris Lucas M.D. 07/21/2024 2:35 PM
--- NOTE | 2024-07-21 14:45 | CT Scan Report ---
CT chest diagnostic wo con CLINICAL HISTORY: worsened hypoxia TECHNIQUE: Multidetector row helical CT of the chest was performed. Coronal and sagittal reformations were obtained. Automated dose lowering techniques and/or adjustment according to patient size were u tilized for this exam. CT DOSE: 1465.89 mGy.cm Comparison: Comparison is made to chest radiograph 07/21/2024 FINDINGS: Lungs and pleura: Atelectasis versus scarring is seen in the dependent portions of the lungs. Mild bi apical scarring and paraseptal emphysema are seen. Bronchial wall thickening with mucous plugging not ed. Heart and pericardium: Aortic valvular calcifications are seen. Vessels: Severe atherosclerotic changes in the aorta and coronary arteries. Mediastinum and annette: Unremarkable. Chest wall and lower neck: Gynecomastia is noted bilaterally. Abdomen: A hiatal hernia is seen. Bones: Degenerative changes in the thoracic spine. Right lateral rib fractures appear chronic. IMPRESSION: Bronchial wall thickening and mucous plugging are compatible with infectious/inflammatory airways dis ease. No evidence of pneumonia. Atelectasis in the bilateral lung bases. ACT 112: Negative or not required by law. Electronically signed by: Kris Lucas M.D. 07/21/2024 2:43 PM
[2024-07-21] MEDS ORDERED: GLUCOSE 10 TAB/TUBE PO PRN (17:12)
[2024-07-21] MEDS ORDERED: POLYETHYLENE (MIRALAX) 17 GM PACK PO PRN (17:12)
[2024-07-21] MEDS ORDERED: CARBOHYDRATES FOR HYPOGLYCEMIA PO PRN (17:12)
[2024-07-21] MEDS ORDERED: DEXTROSE 50% 50 ML SYRINGE IV PRN (17:12)
[2024-07-21] MEDS ORDERED: FAMOTIDINE 20 MG TAB PO PRN (17:12)
[2024-07-21] MEDS ORDERED: GLUCOSE 40% GEL 15 GM TUBE PO PRN (17:12)
[2024-07-21] MEDS ORDERED: ONDANSETRON INJ 2 MG/ML 2 ML VIAL IV PRN (17:12)
[2024-07-21] MEDS ORDERED: GLUCAGON FOR INJ 1 MG VIAL SQ PRN (17:12)
[2024-07-21] MEDS: ALBUT/IPRATROP 3MG/0.5MG NEB 3 ML VIAL NEB SCH (18:03)
[2024-07-21] MEDS: INSULIN ASPART PER UNIT CHARGE SC SCH (18:05)
[2024-07-21] MEDS: AZITHROMYCIN 250 MG TAB PO ONE (18:08)
[2024-07-21] MEDS: BUDESONIDE 0.5 MG/2 ML VIAL (PULMICORT) NEB SCH (18:10)
[2024-07-21] MEDS: HYDROcodone/ACETAMINOPHEN 10/325 TAB PO SCH (18:14)
[2024-07-21] MEDS: TRIMETHOPRIM/POLYMYXIN B OPR SCH (19:39)
[2024-07-21] MEDS: SODIUM CHLORIDE 5% OP SOLN 15 ML BTL OPR SCH (19:40)
[2024-07-21] MEDS: MELATONIN 3 MG TAB PO PRN (20:21)
[2024-07-21] MEDS: guaiFENesin 600 MG TABCR PO SCH (20:24)
[2024-07-21] MEDS: HEPARIN SOD 5,000 UNIT/0.5 ML VIAL SQ SCH (20:29)
[2024-07-21] MEDS: ACETAMINOPHEN 325 MG TAB PO PRN (20:32)
[2024-07-22 07:25] LABS: Hemoglobin 11.9 g/dl (14.0-18.0); Mean Corpuscular Hemoglobin 30.4 pg (25.0-34.0); Mean Corpuscular Volume 89.3 fL (80.0-100.0); Mean Platelet Volume 11.2 fL (9.4-12.4); Platelet Count 152 K/uL (130-400); RDW Coefficient of Variation 12.9 % (11.5-14.5); Red Blood Count 3.92 M/uL (4.70-6.10); White Blood Count 20.76 K/ul (4.8-10.8)
[2024-07-22 07:44] LABS: Albumin Globulin Ratio 1.4 (0.9-2); Albumin Level 3.6 gm/dl (3.4-5.0); BUN Creatinine Ratio 22.9 (10-20); Bilirubin,Total 0.4 mg/dl (0.2-1.0); Calcium 8.7 mg/dl (8.6-10.3); Chol HDL Ratio 2.4 (0-5); Creatinine Clr Calc Pharmacy 108.4 ml/min; Est GFR (African American) 105.5 ml/min; Globulin 2.6 gm/dl (2.5-4.0); Magnesium 2.2 mg/dl (1.7-2.4); Potassium 4.4 mmol/L (3.5-5.1); Total Protein 6.2 gm/dl (6.0-8.3)
[2024-07-22 07:47] LABS: Basophils # (auto) 0.01 K/uL (0.00-0.20); Immature Granulocytes # (auto) 0.18 K/uL (0.01-0.20); Immature Granulocytes % (auto) 0.9 %; Lymphocytes # (auto) 0.48 K/uL (1.20-3.40); Lymphocytes % (auto) 2.3 %; Monocytes # (auto) 1.13 K/uL (0.11-0.59); Monocytes % (auto) 5.4 %; Neutrophils # (auto) 18.96 K/uL (1.40-6.50); Neutrophils % (auto) 91.4 %; Toxic Vacuolation 1+
[2024-07-22] MEDS: CITALOPRAM 20 MG TAB PO SCH (07:54)
[2024-07-22] MEDS: dilTIAZem HCL 120 MG CAPCR PO SCH (07:54)
[2024-07-22] MEDS: FUROSEMIDE 40 MG TAB PO SCH (07:55)
[2024-07-22] MEDS: ROFLUMILAST 500 MCG TAB PO SCH (07:55)
[2024-07-22] MEDS: predniSONE 20 MG TAB PO SCH (07:55)
[2024-07-22] MEDS: ADVANCED PROBIOTIC 625 MG CAPSULE PO SCH (07:56)
[2024-07-22] MEDS: ASPIRIN 81 MG ECTAB PO SCH (07:56)
[2024-07-22] MEDS: ATORVASTATIN 40 MG TAB PO SCH (07:56)
[2024-07-22] MEDS: lisinopril 5 MG TAB PO SCH (07:56)
[2024-07-22] MEDS: CYCLOBENZAPRINE HCL 10 MG TAB PO SCH (08:04)
[2024-07-22] MEDS: DOCUSATE SODIUM 100 MG CAP PO SCH (08:04)
[2024-07-22 08:45] LABS: Estimated Average Glucose 134 mg/dl; Hemoglobin A1C 6.3 % (4.5-5.6)
--- NOTE | 2024-07-22 08:46 | Cardiology Consultation ---
Date of Consultation July 22, 2024 Assessment & Plan (1) Sepsis: (2) Complicated UTI (urinary tract infection): (3) Left-sided chest pain: (4) Stable angina: (5) Recent cerebrovascular accident (CVA): Plan Patient admitted for lower abdominal pain, found to have elevated WBC, +Ua consistent with UTI. Urine culture with gram negative bacilli. BC pending Started on IV antibiotic therapy. Improving symptoms since admission. Intermittent left sided chest pain reported, consistent with known, chronic stable angina with intermittent SL nitro use. HS troponin only minimally elevated on arrival at 23. EKG without acute ischemic changes. Known RBBB. Echo with preserved LVEF, no wall motion abnormalities. Continue ASA, statin, lisinopril, diltiazem. Not on BB due to severe COPD. Stroke like symptoms noted several weeks ago. Old stroke noted on head CT. Consider brain MRI Consider carotid duplex or neck CTA Continue ASA and statin No evidence of atrial fib on telemetry. Consider outpatient ZIO monitor. Case discussed with Dr. Stearns I spent a total of 55 minutes on the date of service in preparation, delivery, and documentation of the care provided to this patient, excluding any time spent in the performance of separately billed services. Lashonda Jackson PA-C Department of Cardiology, [facility] This chart was completed in part utilizing Speech Voice Recognition Software. Grammatical errors, random word insertions, pronoun errors, and incomplete sentences are an occasional consequence of this system due to software limitations, ambient noise, and hardware issues. Any formal questions or concerns about the content, text, or information contained within the body of this dictation should be directly addressed to the provider for clarification. Supervising Physician Co-Signing Physician Notes Attending attestation: Case reviewed with the advanced practitioner. I have personally performed a history and physical examination on the patient. I have reviewed the advanced practitioner's documentation on the date of service referenced in note, and I agree with, and take responsibility for the plan of care. Patient with chronic stable angina. Typically takes nitroglycerin about once a month at home. Urine culture has yielded gram-negative bacilli. Continue current cardiac medications. Treat UTI. I spent a total of 20 minutes coordinating, documenting, and providing care for this patient excluding time spent in the performance of separately billed services or time spent by another provider. Jeffrey Stearns, History of Present Illness Reason for Consultation: CP; SOB; Sepsis Requesting Physician: [facility] Hospitalist Attending Physician: Dr. Stearns History of Present Illness Patient is a 79 year old male, known to [facility] based in [place] (last eval in [address] Caal). History includes: 1. CAD - 2005 he had a 2.25 x 13 mm multilink stent and a 2nd 2.0 x 8 mm multilink stent placed in his 1st and 2nd diagonal respectively. In 2007 he again underwent percutaneous intervention and had a 3.5 x 28 mm followed by 2.5 x 20 mm drug-eluting stent placed in his LAD. 2. HTN 3. Chronic RBBB 4. Dyslipidemia 5. Chronic tobacco and marijuana use 6. Chronic RHF 7. COPD 8. DM Patient is a rather poor historian. Admitted to [facility] yesterday with multitude of complaints including abdominal/sup rapubic pain, SOB, intermittent left sided chest pain, and possible stroke like symptoms several weeks ago with 12 hours of slurred speech and facial droop witnessed by family. Symptoms resolved after 12 hours spontaneously. He did not seek emergency medical services at this time. Found to have leukocytosis on arrival. WBC was 12.7 now 20.76 this morning. UA concerning for UTI. Urine culture (prelim) demonstrating gram negative bacilli. Blood culture pending. Started on antibiotic therapy. HS troponin only minimally elevated at 21, improving to 15 and 23.5 this morning. EKG on arrival demonstrating NSR with RBBB, LAFB. No significant change compared to EPIC. when we discussed his chest pain in detail, he was a rather poor historian. He does admit to "chronic" chest pain that has been present intermittently for years where he will take 1 SL nitro with resolution. He takes 1 nitro about 1x per month and this is not overtly different or changed than his baseline. Yesterday he cannot recall his symptoms of chest pain. He did not try SL nitro. Currently he denies chest pain and reports he "feels pretty good" compared to admission. SOB at baseline. No recurrent abdominal pain. No fever or chills. Allergies Allergy/AdvReac Type Severity Reaction Status Date / Time sodium Allergy Mild intolerance Unverified 07/21/24 12:17 has to drink a lot of water Home Medications Medication Instructions Recorded Confirmed Type Icy Hot 1 applic topical DIRECTED PRN 07/21/24 07/21/24 History Pain albuterol sulfate 2.5 mg/3 mL 2.5 mg inhalation DIRECTED PRN 07/21/24 07/21/24 History (0.083 %) solution for nebulization sob albuterol sulfate 90 mcg/actuation 2 puff inhalation Q4H PRN 07/21/24 07/21/24 History aerosol inhaler cough,sob,wheezing arformoterol 15 mcg/2 mL solution 15 mcg inhalation Q12H 07/21/24 07/21/24 History for nebulization (Brovana) aspirin 81 mg tablet,delayed 81 mg PO DAILY 07/21/24 07/21/24 History release atorvastatin 40 mg tablet 40 mg PO DAILY 07/21/24 07/21/24 History beclomethasone dipropionate 1 puff inhalation DIRECTED PRN 07/21/24 07/21/24 History sob citalopram 10 mg tablet (Celexa) 10 mg PO DAILY 07/21/24 07/21/24 History cyclobenzaprine 10 mg tablet 10 mg PO DAILY 07/21/24 07/21/24 History diltiazem HCl 120 mg 120 mg PO DAILY 07/21/24 07/21/24 History tablet,extended release 24 hr docusate sodium 100 mg capsule 100 mg PO DAILY 07/21/24 07/21/24 History (Colace) fluticasone fur. 100 mcg-umeclid 1 inh inhalation QAM 07/21/24 07/21/24 History 62.5 mcg-vilant 25 mcg inhalat.powder (Trelegy Ellipta) furosemide 40 mg tablet 40 mg PO DAILY 07/21/24 07/21/24 History hydrocodone 10 mg-acetaminophen 1 tab PO Q6H 07/21/24 07/21/24 History 325 mg tablet lisinopril 5 mg tablet 5 mg PO DAILY 07/21/24 07/21/24 History metformin 500 mg tablet 500 mg PO QAM 07/21/24 07/21/24 History nitroglycerin 0.4 mg sublingual 0.4 mg sublingual DIRECTED PRN 07/21/24 07/21/24 History tablet Chest Pain polymyxin B sulfate 10,000 1 drp OPR QID 07/21/24 07/21/24 History unit-trimethoprim 1 mg/mL eye drops ranitidine HCl 150 mg tablet 150 mg PO DAILY 07/21/24 07/21/24 History roflumilast 500 mcg tablet 500 mcg PO DAILY 07/21/24 07/21/24 History (Daliresp) sodium chloride 5 % eye drops 1 drp OPR TID 07/21/24 07/21/24 History tiotropium bromide 2.5 2 puff inhalation DAILY 07/21/24 07/21/24 History mcg/actuation mist for inhalation (Spiriva Respimat) Patient History Medical History Calculus of kidney Obesity (BMI 30.0-34.9) SANJAY (obstructive sleep apnea) Marijuana use Tobacco abuse Chronic hypoxic respiratory failure COPD (chronic obstructive pulmonary disease) T2DM (type 2 diabetes mellitus) CAD (coronary artery disease) HLD (hyperlipidemia) HTN (hypertension) Surgical History Hx of percutaneous left heart catheterization and 2 stents in 2007 LAD Hx laparoscopic cholecystectomy Hx of right heart catheterization 2 stents in 2005 1st and 2nd diagonal History of nasal surgery Hx of cataract extraction Hx of vasectomy Hx of tonsillectomy Family History Mother Osteoarthritis Coronary heart disease Hypertension Social History Smoking Status: Heavy tobacco smoker Tobacco Type: Cigarettes and Pipe Second Hand Exposure: Yes; Do You Dip or Chew Tobacco: Yes; Hx Alcohol Use: No Hx Substance Use: Yes Last Used Substance: Just Prior to Arrival Preferred Language: Icelandic Communication Ability: Effective Travel Pta Required: No Beliefs That Will Affect Care: None Feels Safe at Home: Yes Assistive Devices: Cane, Glasses and Oxygen - Continuous Review of Systems Review of Systems: All systems reviewed & are unremarkable except as noted in HPI & below Physical Exam Constitutional: WD/WN, vitals as above + obese and + disheveled; no acute distress Respiratory: + cough; no labored breathing Auscult ation: + diminished lung sounds and + rhonchi Cardiovascular: Rate/Rhythm: regular rate and regular rhythm Heart Sounds: normal S1 and normal S2; no murmur Extremities: no edema Gastrointestinal (Abdomen): normal bowel sounds, soft, nontender, no hepatosplenomegaly Skin: no rashes, warm and dry Neurologic: PERRL, EOMI, accommodation nl, no face palsy, no dysarthria Psychiatric: A+Ox3, euthymic affect Results & Data Vital Signs (Past 12 Hours) Vital Signs Temp Pulse Pulse Resp BP BP Pulse Ox 07/22/24 08:14 07/22/24 07:38 36.8 C 60 20 115/72 97 07/22/24 07:11 65 07/22/24 03:43 36.4 C L 57 L 18 101/57 L 94 07/21/24 23:09 36.7 C 66 18 106/52 L 95 07/21/24 21:59 07/21/24 21:44 70 O2 Del Method O2 Flow Rate 07/22/24 08:14 Nasal Cannula 3 07/22/24 07:38 Nasal Cannula 3.5 07/22/24 07:11 07/22/24 03:43 Nasal Cannula 3.5 07/21/24 23:09 Nasal Cannula 3.5 07/21/24 21:59 Nasal Cannula 3 07/21/24 21:44 Laboratory Results Cardiac Enzymes 07/21/24 07/21/24 07/22/24 Range/Units 12:21 18:17 00:33 AST (13-39) U/L Troponin I High Sens 17.6 D 14.7 23.5 H (0-20) pg/ml 07/22/24 Range/Units 06:58 AST 13 (13-39) U/L Troponin I High Sens (0-20) pg/ml Lipids 07/22/24 Range/Units 06:58 Triglycerides 62 (0-150) mg/dl Cholesterol 153 (0-200) mg/dl HDL Cholesterol 63 mg/dl Cholesterol/HDL Ratio 2.4 (0-5) CBC 07/22/24 Range/Units 06:58 WBC 20.76 H D (4.8-10.8) K/ul RBC 3.92 L (4.70-6.10) M/uL Hgb 11.9 L (14.0-18.0) g/dl Hct 35.0 L (42.0-52.0) % Plt Count 152 (130-400) K/uL Neut # (Auto) 18.96 H (1.40-6.50) K/uL Lymph # (Auto) 0.48 L (1.20-3.40) K/uL [place] # (Auto) 1.13 H (0.11-0.59) K/uL Eos # (Auto) 0.00 (0.00-0.50) K/uL Baso # (Auto) 0.01 (0.00-0.20) K/uL Comprehensive Metabolic Panel 07/22/24 Range/Units 06:58 Sodium 134 L (136-145) mmol/L Potassium 4.4 (3.5-5.1) mmol/L Chloride 100 (98-107) mmol/L Carbon Dioxide 28 (21-32) mmol/L BUN 16 (6-23) mg/dl Creatinine 0.70 (0.6-1.4) mg/dl Glucose 170 H (70-99(Fasting)) mg/dl Calcium 8.7 (8.6-10.3) mg/dl AST 13 (13-39) U/L ALT 8 (7-52) U/L Alkaline Phosphatase 88 (34-104) U/L Total Protein 6.2 (6.0-8.3) gm/dl Albumin 3.6 (3.4-5.0) gm/dl Intake and Output 07/21/24 07/22/24 07/22/24 22:59 06:59 14:59 Intake Total 650 / 800 50 / 50 Output Total 300 / 1150 850 / 1150 Balance -300 / -350 -200 / -350 50 / 50 Intake: IV 50 / 50 cefTRIAXone SODIUM 2,000 mg In 50 / 50 50 ml @ 100 mls/hr IV Q24H [facility] Rx#:[id number] Oral 650 / 650 Output: Urine 300 / 1150 850 / 1150 Other: Weight 100.6 kg 100.3 kg Weight Measurement Method Standing Scale Built in [facility] Diagnostic Findings Telemetry reviewed: NSR in the 70-80's EKG reviewed from admission on 07/21/24 at 10:21: NSR at 92 bmp RBBB LAFB Bifascicular block Repeat EKG reviewed from 07/22/24 at 6:11 AM: Sinus bradycardia at 54 bmp, 1st degree AV Incomplete RBBB has replaced RBBB Echo report reviewed dated 07/21/24: Study was technically limited Mild concentric LVH LVEF is normal at 55-60% Grade I diastolic dysfunction Borderline aortic root dilatation Head CT on admission: Impression: Encephalomalacia in the left insula suggestive of age-indeterminate infarct, likely chronic. No evidence of acute infarct. Chest CT on admission: IMPRESSION: Bronchial wall thickening and mucous plugging are compatible with infectious/inflammatory airways disease. No evidence of pneumonia. Atelectasis in the bilateral lung bases. Medications Administered Current Inpatient Medications Acetaminophen (Acetaminophen 325 Mg Tab) 650 mg PO Q4H PRN PRN Reason: Pain or Fever Stop: 08/20/24 17:11 Last Admin: 07/21/24 20:32 Dose: 650 mg Hydrocodone Bitart/Acetaminophen (Hydrocodone/Acetaminophen 10/325 Tab) 1 tab PO Q6H JENAE Stop: 08/04/24 17:11 Last Admin: 07/22/24 11:30 Dose: 1 tab Albuterol (Albut/Ipratrop 3mg/0.5mg Neb 3 Ml Vial) 3 ml NEB QIDR JENAE; Protocol Stop: 08/20/24 17:11 Last Admin: 07/22/24 10:58 Dose: 3 ml Aspirin (Aspirin 81 Mg Ectab) 81 mg PO DAILY JENAE Stop: 08/21/24 08:59 Last Admin: 07/22/24 07:56 Dose: 81 mg Atorvastatin Calcium (Atorvastatin 40 Mg Tab) 40 mg PO DAILY JENAE Stop: 08/21/24 08:59 Last Admin: 07/22/24 07:56 Dose: 40 mg Azithromycin (Azithromycin 250 Mg Tab) 250 mg PO Q24H JENAE Stop: 07/25/24 18:01 Budesonide (Budesonide 0.5 Mg/2 Ml Vial (Pulmicort)) 0.5 mg NEB BIDR JENAE Stop: 08/20/24 18:59 Last Admin: 07/22/24 07:47 Dose: 0.5 mg Citalopram Hydrobromide (Citalopram 20 Mg Tab) 10 mg PO DAILY JENAE Stop: 08/21/24 08:59 Last Admin: 07/22/24 07:54 Dose: 10 mg Cyclobenzaprine HCl (Cyclobenzaprine Hcl 10 Mg Tab) 10 mg PO DAILY JENAE Stop: 08/21/24 08:59 Last Admin: 07/22/24 08:04 Dose: 10 mg Dextrose (Dextrose 50% 50 Ml Syringe) 25 - 50 ml IV UD PRN; Protocol PRN Reason: Hypoglycemia Protocol Stop: 08/20/24 17:11 Diltiazem HCl (Diltiazem Hcl 120 Mg Capcr) 120 mg PO DAILY JENAE Stop: 08/21/24 08:59 Last Admin: 07/22/24 07:54 Dose: 120 mg Docusate Sodium (Docusate Sodium 100 Mg Cap) 100 mg PO DAILY JENAE Stop: 08/21/24 08:59 Last Admin: 07/22/24 08:04 Dose: 100 mg Famotidine (Famotidine 20 Mg Tab) 20 mg PO DAILY PRN PRN Reason: Heartburn Stop: 08/20/24 17:11 Furosemide (Furosemide 40 Mg Tab) 40 mg PO DAILY JENAE Stop: 08/21/24 08:59 Last Admin: 07/22/24 07:55 Dose: 40 mg Glucagon (Glucagon For Inj 1 Mg Vial) 1 mg SQ UD PRN; Protocol PRN Reason: Hypoglycemia Protocol Stop: 08/20/24 17:11 Glucose (Glucose 40% Gel 15 Gm Tube) 15 - 30 gm PO UD PRN; Protocol PRN Reason: Hypoglycemia Protocol Stop: 08/20/24 17:11 Glucose (Glucose 10 Tab/Tube) 4 - 8 tab PO UD PRN; Protocol PRN Reason: Hypoglycemia Treatment Stop: 08/20/24 17:11 Guaifenesin (Guaifenesin 600 Mg Tabcr) 1,200 mg PO Q12 JENAE Stop: 08/20/24 20:59 Last Admin: 07/22/24 07:56 Dose: 1,200 mg Heparin Sodium (Porcine) (Heparin Sod 5,000 Unit/0.5 Ml Vial) 5,000 units SQ Q8 JENAE Stop: 08/20/24 20:59 Last Admin: 07/22/24 05:47 Dose: 5,000 units Ceftriaxone Sodium (Rocephin) 2,000 mg in 50 mls @ 100 mls/hr IV Q24H JENAE Stop: 08/01/24 08:59 Last Infusion: 07/22/24 10:08 Dose: Infused Insulin Aspart (Insulin Aspart Per Unit Charge) 0 units SC ACHS JENAE Stop: 08/20/24 17:11 Last Admin: 07/22/24 09:35 Dose: 4 units Lactobacillus Acidophilus (Advanced Probiotic 625 Mg Capsule) 1,250 mg PO DAILY JENAE Stop: 08/21/24 08:59 Last Admin: 07/22/24 07:56 Dose: 1,250 mg Lisinopril (Lisinopril 5 Mg Tab) 5 mg PO DAILY JENAE Stop: 08/21/24 08:59 Last Admin: 07/22/24 07:56 Dose: 5 mg Melatonin (Melatonin 3 Mg Tab) 6 mg PO HS PRN PRN Reason: Sleep Stop: 08/20/24 20:59 Last Admin: 07/21/24 20:21 Dose: 6 mg Miscellaneous (Carbohydrates For Hypoglycemia ) 15 - 30 gm PO UD PRN PRN Reason: Hypoglycemia Protocol Stop: 08/20/24 17:11 Ondansetron HCl (Ondansetron Inj 2 Mg/Ml 2 Ml Vial) 4 mg IV Q6H PRN PRN Reason: Nausea Stop: 08/20/24 17:11 Polyethylene Glycol (Polyethylene (Miralax) 17 Gm Pack) 17 gm PO DAILY PRN PRN Reason: Constipation Stop: 08/20/24 17:11 Polymyxin/Trimethoprim Sulfate (Trimethoprim/Polymyxin B) 1 drops OPR QID JENAE Stop: 08/20/24 17:11 Last Admin: 07/22/24 07:56 Dose: 1 drops Prednisone (Prednisone 20 Mg Tab) 40 mg PO DAILY JENAE Stop: 07/26/24 09:01 Last Admin: 07/22/24 07:55 Dose: 40 mg Roflumilast (Roflumilast 500 Mcg Tab) 500 mcg PO DAILY JENAE Stop: 08/21/24 08:59 Last Admin: 07/22/24 07:55 Dose: 500 mcg Sodium Chloride (Sodium Chloride 5% Op Soln 15 Ml Btl) 1 drops OPR TID JENAE Stop: 08/20/24 17:11 Last Admin: 07/22/24 07:57 Dose: 1 drops
[2024-07-22] MEDS: cefTRIAXone SODIUM 2,000 MG/50 ML BAG IV SCH (09:36)
--- NOTE | 2024-07-22 12:10 | Hospitalist Progress Note ---
Date of Service July 22, 2024 Assessment & Plan (1) Sepsis: (2) Acute on chronic hypoxic respiratory failure: (3) Complicated UTI (urinary tract infection): (4) COPD exacerbation: (5) Acute bronchitis: (6) Recent cerebrovascular accident (CVA): (7) Stable angina: (8) T2DM (type 2 diabetes mellitus): (9) Tobacco abuse: (10) CAD (coronary artery disease): (11) SANJAY (obstructive sleep apnea): (12) Obesity (BMI 30.0-34.9): (13) Demand ischemia of myocardium: Plan Patient 79-year-old gentleman who rarely seeks medical attention presents to the emergency room with a constellation of symptoms and decompensation of his chronic medical problems Patient with urinary tract infection, continue antibiotics, follow urine culture Leukocytosis mostly combination of steroids and infection will continue to monitor Patient reportedly is chronic hypoxic respiratory failure on 3 L of oxygen, at baseline oxygen requirements, continue titrate if able Continue oral steroids and antibiotics for acute bronchitis and exacerbation of COPD, continue nebulizer treatments Head imaging consistent with previous stroke. Patient had significant symptoms about a few weeks ago, will institute secondary stroke prevention measures Hemoglobin A1c fairly well-controlled, continue current diabetes management Cardiology consultation reviewed, Final recommendations pending. Continue medical management of chronic CAD Therapies Care management to help coordinate discharge planning Attempted to contact granddaughter listed as primary contact, no answer 56 minutes spent on review of records, coordination of care, evaluation of the patient at bedside Admission and Anticipated Discharge Date Admission Date: July 21, 2024 Subjective Patient reports feeling improved. Feels that breathing is little bit better. Denies chest pain at this time. Physical Exam Physical Exam: Constitutional: Alert, nontoxic in appearance HEENT: Mucous membranes moist. Lungs: Decreased breath sounds, prolonged expiratory phase, diffuse wheezing and crackles throughout CV: S1-S2, regular Abdomen: Soft, nontender, nondistended Extremities: No significant edema Neuro: No focal deficits Psych: Cooperative, appears to have some limited cognitive abilities Results & Data Results & Data Vital Signs (Past 12 Hours) Vital Signs Temp Pulse Pulse Resp BP BP Pulse Ox 07/22/24 11:42 36.5 C 62 19 128/72 94 07/22/24 10:58 66 18 90 07/22/24 08:14 07/22/24 07:46 84 16 93 07/22/24 07:38 36.8 C 60 20 115/72 97 07/22/24 07:11 65 07/22/24 03:43 36.4 C L 57 L 18 101/57 L 94 O2 Del Method O2 Flow Rate 07/22/24 11:42 Nasal Cannula 3.5 07/22/24 10:58 Room Air 07/22/24 08:14 Nasal Cannula 3 07/22/24 07:46 Nasal Cannula 3 07/22/24 07:38 Nasal Cannula 3.5 07/22/24 07:11 07/22/24 03:43 Nasal Cannula 3.5 Diagnostic Findings Reviewed imaging, laboratory and diagnostic studies. Pertinent findings as below. Urine culture growing gram-negative bacilli WBCs 20.76, suspect combination of steroids and infection Sodium 134 Creatinine 0.7 Hemoglobin A1c 6.3% Troponin 23.5, flat Head CT showing evidence of Age-indeterminate left insula infarction Chest CT showing bronchial inflammation and mucous plugging, personally reviewed images, agree with radiology report Personally reviewed EKG, sinus bradycardia no acute ST-T wave changes
[2024-07-22] MEDS: AZITHROMYCIN 250 MG TAB PO SCH (18:14)
--- NOTE | 2024-07-23 06:07 | Electrocardiogram Report ---
Test Reason : Blood Pressure : */* mmHG Vent. Rate : 92 BPM Atrial Rate : 92 BPM P-R Int : 184 ms QRS Dur : 128 ms QT Int : 378 ms P-R-T Axes : 0 -58 26 degrees QTcB Int : 467 ms Normal sinus rhythm Right bundle branch block Left anterior fascicular block Bifascicular block Abnormal ECG No previous ECGs available Confirmed by Darci Diallo ([id number]) on 07/23/2024 6:07:05 AM Referred By: Confirmed By: Darci Diallo
--- NOTE | 2024-07-23 06:53 | Electrocardiogram Report ---
Test Reason : Blood Pressure : */* mmHG Vent. Rate : 54 BPM Atrial Rate : 54 BPM P-R Int : 210 ms QRS Dur : 104 ms QT Int : 456 ms P-R-T Axes : -22 -27 -17 degrees QTcB Int : 432 ms Sinus bradycardia with 1st degree A-V block Incomplete right bundle branch block Borderline ECG When compared with ECG of 21-Jul-2024 10:21, (unconfirmed) Vent. rate has decreased by 38 bpm No significant change Confirmed by Darci Diallo ([id number]) on 07/23/2024 6:53:10 AM Referred By: REFERRED SELF Confirmed By: Darci Diallo
[2024-07-23 07:06] LABS: Hematocrit (blood only) 36.1 % (42.0-52.0); Hemoglobin 11.5 g/dl (14.0-18.0); Mean Corpuscular Hemoglobin 29.2 pg (25.0-34.0); Mean Corpuscular Hgb Conc 31.9 g/dL (32.0-36.0); Mean Corpuscular Volume 91.6 fL (80.0-100.0); Platelet Count 145 K/uL (130-400); RDW Coefficient of Variation 13.2 % (11.5-14.5); RDW Standard Deviation 44.4 fL (36.4-46.3); Red Blood Count 3.94 M/uL (4.70-6.10); White Blood Count 14.23 K/ul (4.8-10.8)
[2024-07-23 07:31] LABS: BUN Creatinine Ratio 31.3 (10-20); Calcium 8.5 mg/dl (8.6-10.3); Creatinine Clr Calc Pharmacy 113.3 ml/min; Est GFR (African American) 107.4 ml/min; Est GFR (Non-African American) 92.7 ml/min; Magnesium 2.1 mg/dl (1.7-2.4); Potassium 4.1 mmol/L (3.5-5.1)
[2024-07-23 07:45] LABS: Thyroid Stimulating Hormone 2.3 uIu/ml (0.300-4.500)
--- NOTE | 2024-07-23 10:46 | Discharge Summary ---
Discharge Summary Date of Service July 23, 2024 Principal Dx & Hospital Course #1 = Principal Diagnosis (1) Sepsis: (2) Acute on chronic hypoxic respiratory failure: (3) Complicated UTI (urinary tract infection): (4) COPD exacerbation: (5) Acute bronchitis: (6) Recent cerebrovascular accident (CVA): (7) Stable angina: (8) T2DM (type 2 diabetes mellitus): (9) Tobacco abuse: (10) CAD (coronary artery disease): (11) SANJAY (obstructive sleep apnea): (12) Obesity (BMI 30.0-34.9): (13) Demand ischemia of myocardium: Plan Patient 79-year-old gentleman brought to the emergency room by his family with a multitude of complaints. Patient rarely sees a physician. Has multiple medical issues. Most urgent issues. The patient had sepsis related to urinary tract infection. His COPD also seems somewhat exacerbated. Patient was admitted to the hospital. Started on steroids and continued on oxygen and nebulizer treatments. He was started on antibiotics for his COPD and presumed urinary tract infection. By the following morning is at his baseline oxygen flow of 3 L. His strength was starting to improve. Family reported a few weeks ago he had symptoms consistent with a stroke. This was evident on CT of the head. He is on maximum secondary stroke prevention with statin, blood pressure control, antiplatelet therapy. There was no evidence of arrhythmia on telemetry monitoring here in the hospital. Cardiology consultation was obtained due to some mild troponin increase. This is demand ischemia in the setting of sepsis. No other recommendations for hospital evaluation was required. Echocardiogram was performed showed normal ejection fraction 55 to 60% some grade 1 diastolic dysfunction. They suggested possible ZIO monitoring as an outpatient. On the day of discharge his patient's vital signs are stable. He is saturating well on his 3 L.His WBCs have significantly improved Lung exam has significantly improved.. His strength is returning. Urine culture revealed E. coli that was pansensitive. He can be transition to oral antibiotics. He can be discharged home to continue outpatient follow-up with his outpatient providers. Patient lives with his daughter and granddaughters. Updated patient's granddaughter, Makayla, to patient's condition and plan for discharge Notes For Next Care Provider Consider outpatient ZIO monitoring Medication Changes From Visit Keflex for UTI Short course of prednisone for exacerbation of COPD Admission HPI Per Admitting Provider This is a 79 yr old M who has a significant PMH of Chronic Hypoxic respiratory failure on chronic oxygen therapy, SANJAY, COPD, Right heart failure, CAD with hx of angioplasty and total of 4 stents, HTN, HLD, Chronic RBBB, tobacco abuse, marijuana abuse, hx of cva who presents to ED 2/2 suprapubic pain x 1 week. 2 granddaughters are at bedside who help elicit history. He is from [facility] and he does not visit the hospital frequently unless absolutely necessary. He reports a wide range of sx that has been on going for the last 3 weeks. 1. Suprapubic pain - off and on for last 1 week, but worsening over last 3 days. Now with associated L flank pain. Pain worse with movement. He also complains of dysuria. Hx of UTI before. Denies christofer fevers but has been chilled. 2. Chest pain - off and on last 3 weeks. L sided, non radiating. Sx would last seconds to minutes and resolve on own. He tried NTG once but it is very old and did not work. Sx occur at rest as he does not exert himself. Once they come on he goes and lays in bed for an hour and rests, gets up smokes a cigarette or two and sx are resolved. Over the last 2-3 days sx occurring more frequently and he is getting more SOB with it. He does have associated lightheadedness, but not pre syncope or dizzy. He denies any diaphoresis. 3. Worsened SOB: has chronic SOB. Chronic smoking/marijuana user. "I'm 79 what else am I suppose to do." Has chronic purulent sputum production. This is the same and not worse. 3. Stroke like sx occurred 3 weeks ago. Granddaughter witnessed slurred speech, L facial droop and confusion. Pt refused evaluation. He went and laid down. After 1 hour sx improved but not resolved. After ~ 1/2 a day sx resolved on own. He admits to hx of strokes in the past. No deficit per pt. Currently he denies any stroke like sx. At baseline he needs assistance for walking. He would like a power chair. He is compliant with his medications. He states his father in 50s from [place]. "He has 16 kids i'm sure that played a part in that." IN ED pt was found to have a UTI tx with IV rocephin. CXR negative. He met criteria for sepsis given tachycardia and leukocytosis. He also received IV solumedrol and nebs. Admission Exam Per Admitting Provider See H&P Discharge Exam Constitutional: Alert HEENT: Mucous membranes moist. Lungs: Decreased breath sounds, prolonged expiratory phase, few scattered expiratory wheezes CV: S1-S2, regular Abdomen: Soft, nontender, nondistended Extremities: No significant edema Neuro: No focal deficits Psych: Cooperative, normal mood Updated Medication List Medication Instructions Recorded Confirmed Type Icy Hot 1 applic topical DIRECTED PRN 07/21/24 07/21/24 History Pain albuterol sulfate 90 mcg/actuation 2 puff inhalation Q4H PRN 07/21/24 07/21/24 History aerosol inhaler cough,sob,wheezing arformoterol 15 mcg/2 mL solution 15 mcg inhalation Q12H 07/21/24 07/21/24 History for nebulization (Brovana) aspirin 81 mg tablet,delayed 81 mg PO DAILY 07/21/24 07/21/24 History release atorvastatin 40 mg tablet 40 mg PO DAILY 07/21/24 07/21/24 History beclomethasone dipropionate 1 puff inhalation DIRECTED PRN 07/21/24 07/21/24 History sob citalopram 10 mg tablet (Celexa) 10 mg PO DAILY 07/21/24 07/21/24 History cyclobenzaprine 10 mg tablet 10 mg PO DAILY 07/21/24 07/21/24 History diltiazem HCl 120 mg 120 mg PO DAILY 07/21/24 07/21/24 History tablet,extended release 24 hr docusate sodium 100 mg capsule 100 mg PO DAILY 07/21/24 07/21/24 History (Colace) fluticasone fur. 100 mcg-umeclid 1 inh inhalation QAM 07/21/24 07/21/24 History 62.5 mcg-vilant 25 mcg inhalat.powder (Trelegy Ellipta) furosemide 40 mg tablet 40 mg PO DAILY 07/21/24 07/21/24 History hydrocodone 10 mg-acetaminophen 1 tab PO Q6H 07/21/24 07/21/24 History 325 mg tablet lisinopril 5 mg tablet 5 mg PO DAILY 07/21/24 07/21/24 History metformin 500 mg tablet 500 mg PO QAM 07/21/24 07/21/24 History nitroglycerin 0.4 mg sublingual 0.4 mg sublingual DIRECTED PRN 07/21/24 07/21/24 History tablet Chest Pain polymyxin B sulfate 10,000 1 drp OPR QID 07/21/24 07/21/24 History unit-trimethoprim 1 mg/mL eye drops ranitidine HCl 150 mg tablet 150 mg PO DAILY 07/21/24 07/21/24 History roflumilast 500 mcg tablet 500 mcg PO DAILY 07/21/24 07/21/24 History (Daliresp) sodium chloride 5 % eye drops 1 drp OPR TID 07/21/24 07/21/24 History tiotropium bromide 2.5 2 puff inhalation DAILY 07/21/24 07/21/24 History mcg/actuation mist for inhalation (Spiriva Respimat) albuterol sulfate 2.5 mg/3 mL 2.5 mg (3 mL) inhalation Q4H PRN 07/23/24 Rx (0.083 %) solution for nebulization sob #360 mL cephalexin 500 mg capsule 500 mg PO TID 3 days #9 caps 07/23/24 Rx guaifenesin 600 mg tablet, 1,200 mg (2 x 600 mg) PO Q12 #30 07/23/24 Rx extended release 12 hr (Mucinex) tabs prednisone 20 mg tablet 40 mg (2 x 20 mg) PO DAILY 3 days 07/23/24 Rx #6 tabs Hospital Stay Data Consultations 07/21/24 12:58 ED Decision to Admit Stat 07/21/24 13:08 Consult Cardiology Routine Diagnostic Imagining Performed 07/21/24 13:32 CT chest diagnostic wo con Stat CT head/brain wo con Stat Reviewed imaging, laboratory and diagnostic studies. Pertinent findings as below. Echocardiogram shows normal ejection fraction, grade 1 diastolic dysfunction, I refer you to full report Head CT did show encephalomalacia in the left insula consistent with his reported stroke symptoms from several weeks ago. TSH 2.3 WBCs 14.2, significantly improved Urine culture E. coli pansensitive Blood culture no growth to date Respiratory culture no growth Hemoglobin A1c 6.3% Respiratory viral panel negative Pending Results Patient Have Any Pending Studies at Discharge: No Discharge Instructions Given to Patient (Per Discharging Provider) Wear your oxygen at all times Follow-up with cardiology, discuss ZIO monitor Total Time Total Time Spent Total Time Spent (In Minutes): 37
--- NOTE | 2024-07-23 12:29 | Cardiology Progress Note ---
Date of Service July 23, 2024 Assessment & Plan (1) Sepsis: (2) Complicated UTI (urinary tract infection): (3) Left-sided chest pain: (4) Stable angina: (5) Recent cerebrovascular accident (CVA): Plan 07/22/24: Patient admitted for lower abdominal pain, found to have elevated WBC, +Ua consistent with UTI. Urine culture with gram negative bacilli. BC pending Started on IV antibiotic therapy. Improving symptoms since admission. Intermittent left sided chest pain reported, consistent with known, chronic stable angina with intermittent SL nitro use. HS troponin only minimally elevated on arrival at 23. EKG without acute ischemic changes. Known RBBB. Echo with preserved LVEF, no wall motion abnormalities. Continue ASA, statin, lisinopril, diltiazem. Not on BB due to severe COPD. Stroke like symptoms noted several weeks ago. Old stroke noted on head CT. Consider brain MRI Consider carotid duplex or neck CTA Continue ASA and statin No evidence of atrial fib on telemetry. Consider outpatient ZIO monitor. 07/23/24: Urine culture with E.Coli - Continue antibiotics. WBC improving today Blood culture remains negative. No recurrent chest pain since admission. chronic stable angina. EKG without ischemic changes and preserved LVEF on echo without wall motion abnormalities. Ongoing medical management for known CAD recommended. Continue ASA, statin, lisinopril, diltiazem and furosemide Given stroke like symptoms several weeks ago and old CVA on Head CT, could consider outpatient monitoring coordinator. No arrhythmias since admission. Continue ASA and statin. No further cardiac testing warranted at this time. Case discussed with Dr. Stearns I spent a total of 40 minutes on the date of service in preparation, delivery, and documentation of the care provided to this patient, excluding any time spent in the performance of separately billed services. Lashonda Jackson PA-C Department of Cardiology, [facility] This chart was completed in part utilizing Speech Voice Recognition Software. Grammatical errors, random word insertions, pronoun errors, and incomplete sentences are an occasional consequence of this system due to software limitations, ambient noise, and hardware issues. Any formal questions or concerns about the content, text, or information contained within the body of this dictation should be directly addressed to the provider for clarification. Admission and Anticipated Discharge Date Admission Date: July 21, 2024 Supervising Physician Co-Signing Physician Notes Case discussed with Lashonda Jackson PA-C. Agree with the findings and plans as outlined. Patient was discharged prior to me having the opportunity to examine him in person today. Gio Stearns, DO Subjective Patient resting in bed. Denies recurrent chest pain. Reports he is feeling better since admission. No current urinary symptoms. No fever or chills. SOB at "baseline". Review of Systems Review of Systems: All systems reviewed & are unremarkable except as noted in HPI & below Physical Exam Constitutional: WD/WN, vitals as above + obese and + disheveled; no acute distress Respiratory: + cough; no labored breathing Auscult ation: + diminished lung sounds and + rhonchi Cardiovascular: Rate/Rhythm: regular rate and regular rhythm Heart Sounds: normal S1 and normal S2; no murmur Extremities: no edema Gastrointestinal (Abdomen): normal bowel sounds, soft, nontender, no hepatosplenomegaly Skin: no rashes, warm and dry Neurologic: PERRL, EOMI, accommodation nl, no face palsy, no dysarthria Psychiatric: A+Ox3, euthymic affect Results & Data Vital Signs (Past 12 Hours) Vital Signs Temp Pulse Pulse Resp BP BP Pulse Ox 07/23/24 11:09 36.6 C 119 H 19 119/73 105/62 95 07/23/24 10:38 36.6 C 119 H 19 119/73 95 07/23/24 10:00 07/23/24 07:29 77 20 95 07/23/24 07:26 78 07/23/24 06:53 36.6 C 87 19 108/62 94 07/23/24 03:49 36.6 C 77 18 105/62 96 O2 Del Method O2 Flow Rate 07/23/24 11:09 07/23/24 10:38 Nasal Cannula 07/23/24 10:00 Nasal Cannula 3 07/23/24 07:29 Nasal Cannula 3 07/23/24 07:26 07/23/24 06:53 Nasal Cannula 3 07/23/24 03:49 Nasal Cannula 3 Laboratory Results CBC 07/23/24 Range/Units 06:43 WBC 14.23 H (4.8-10.8) K/ul RBC 3.94 L (4.70-6.10) M/uL Hgb 11.5 L (14.0-18.0) g/dl Hct 36.1 L (42.0-52.0) % Plt Count 145 (130-400) K/uL Comprehensive Metabolic Panel 07/23/24 Range/Units 06:43 Sodium 138 (136-145) mmol/L Potassium 4.1 (3.5-5.1) mmol/L Chloride 102 (98-107) mmol/L Carbon Dioxide 30 (21-32) mmol/L BUN 21 (6-23) mg/dl Creatinine 0.67 (0.6-1.4) mg/dl Glucose 198 H (70-99(Fasting)) mg/dl Calcium 8.5 L (8.6-10.3) mg/dl Intake and Output 07/22/24 07/23/24 07/23/24 22:59 06:59 14:59 Intake Total 940 / 990 50 / 50 Output Total 1150 / 1150 Balance -210 / -160 50 / 50 Intake: IV 50 / 50 cefTRIAXone SODIUM 2,000 mg In 50 / 50 50 ml @ 100 mls/hr IV Q24H [facility] Rx#:[id number] Oral 940 / 940 Output: Urine 1150 / 1150 Other: Weight 100.5 kg 100.5 kg Weight Measurement Method Built in [facility] Patient Weight 07/24/24 06:59 Weight 100.5 kg Diagnostic Findings Telemetry reviewed: NSR in the 60-70's. Echo report reviewed from 07/21/24: Normal LVEF at 55-60% No wall motion abnormalities Mild concentric LVH Grade I diastolic dysfunction Borderline aortic root dilatation Medications Administered Current Inpatient Medications Acetaminophen (Acetaminophen 325 Mg Tab) 650 mg PO Q4H PRN PRN Reason: Pain or Fever Stop: 08/20/24 17:11 Last Admin: 07/21/24 20:32 Dose: 650 mg Hydrocodone Bitart/Acetaminophen (Hydrocodone/Acetaminophen 10/325 Tab) 1 tab PO Q6H JENAE Stop: 08/04/24 17:11 Last Admin: 07/23/24 11:18 Dose: 1 tab Albuterol (Albut/Ipratrop 3mg/0.5mg Neb 3 Ml Vial) 3 ml NEB QIDR JENAE; Protocol Stop: 08/20/24 17:11 Last Admin: 07/23/24 11:07 Dose: Not Given Aspirin (Aspirin 81 Mg Ectab) 81 mg PO DAILY [facility] Stop: 08/21/24 08:59 Last Admin: 07/23/24 07:36 Dose: 81 mg Atorvastatin Calcium (Atorvastatin 40 Mg Tab) 40 mg PO DAILY [facility] Stop: 08/21/24 08:59 Last Admin: 07/23/24 07:36 Dose: 40 mg Azithromycin (Azithromycin 250 Mg Tab) 250 mg PO Q24H JENAE Stop: 07/25/24 18:01 Last Admin: 07/22/24 18:14 Dose: 250 mg Budesonide (Budesonide 0.5 Mg/2 Ml Vial (Pulmicort)) 0.5 mg NEB BIDR JENAE Stop: 08/20/24 18:59 Last Admin: 07/23/24 07:17 Dose: 0.5 mg Citalopram Hydrobromide (Citalopram 20 Mg Tab) 10 mg PO DAILY [facility] Stop: 08/21/24 08:59 Last Admin: 07/23/24 07:36 Dose: 10 mg Cyclobenzaprine HCl (Cyclobenzaprine Hcl 10 Mg Tab) 10 mg PO DAILY [facility] Stop: 08/21/24 08:59 Last Admin: 07/23/24 07:44 Dose: 10 mg Dextrose (Dextrose 50% 50 Ml Syringe) 25 - 50 ml IV UD PRN; Protocol PRN Reason: Hypoglycemia Protocol Stop: 08/20/24 17:11 Diltiazem HCl (Diltiazem Hcl 120 Mg Capcr) 120 mg PO DAILY [facility] Stop: 08/21/24 08:59 Last Admin: 07/23/24 07:36 Dose: 120 mg Docusate Sodium (Docusate Sodium 100 Mg Cap) 100 mg PO DAILY [facility] Stop: 08/21/24 08:59 Last Admin: 07/23/24 07:44 Dose: 100 mg Famotidine (Famotidine 20 Mg Tab) 20 mg PO DAILY PRN PRN Reason: Heartburn Stop: 08/20/24 17:11 Furosemide (Furosemide 40 Mg Tab) 40 mg PO DAILY [facility] Stop: 08/21/24 08:59 Last Admin: 07/23/24 07:36 Dose: 40 mg Glucagon (Glucagon For Inj 1 Mg Vial) 1 mg SQ UD PRN; Protocol PRN Reason: Hypoglycemia Protocol Stop: 08/20/24 17:11 Glucose (Glucose 40% Gel 15 Gm Tube) 15 - 30 gm PO UD PRN; Protocol PRN Reason: Hypoglycemia Protocol Stop: 08/20/24 17:11 Glucose (Glucose 10 Tab/Tube) 4 - 8 tab PO UD PRN; Protocol PRN Reason: Hypoglycemia Treatment Stop: 08/20/24 17:11 Guaifenesin (Guaifenesin 600 Mg Tabcr) 1,200 mg PO Q12 JENAE Stop: 08/20/24 20:59 Last Admin: 07/23/24 07:35 Dose: 1,200 mg Heparin Sodium (Porcine) (Heparin Sod 5,000 Unit/0.5 Ml Vial) 5,000 units SQ Q8 JENAE Stop: 08/20/24 20:59 Last Admin: 07/23/24 05:27 Dose: 5,000 units Ceftriaxone Sodium (Rocephin) 2,000 mg in 50 mls @ 100 mls/hr IV Q24H JENAE Stop: 08/01/24 08:59 Last Infusion: 07/23/24 09:02 Dose: Infused Insulin Aspart (Insulin Aspart Per Unit Charge) 0 units SC ACHS JENAE Stop: 08/20/24 17:11 Last Admin: 07/23/24 09:26 Dose: 3 units Lactobacillus Acidophilus (Advanced Probiotic 625 Mg Capsule) 1,250 mg PO DAILY JENAE Stop: 08/21/24 08:59 Last Admin: 07/23/24 07:37 Dose: 1,250 mg Lisinopril (Lisinopril 5 Mg Tab) 5 mg PO DAILY JENAE Stop: 08/21/24 08:59 Last Admin: 07/23/24 07:36 Dose: 5 mg Melatonin (Melatonin 3 Mg Tab) 6 mg PO HS PRN PRN Reason: Sleep Stop: 08/20/24 20:59 Last Admin: 07/21/24 20:21 Dose: 6 mg Miscellaneous (Carbohydrates For Hypoglycemia ) 15 - 30 gm PO UD PRN PRN Reason: Hypoglycemia Protocol Stop: 08/20/24 17:11 Ondansetron HCl (Ondansetron Inj 2 Mg/Ml 2 Ml Vial) 4 mg IV Q6H PRN PRN Reason: Nausea Stop: 08/20/24 17:11 Polyethylene Glycol (Polyethylene (Miralax) 17 Gm Pack) 17 gm PO DAILY PRN PRN Reason: Constipation Stop: 08/20/24 17:11 Polymyxin/Trimethoprim Sulfate (Trimethoprim/Polymyxin B) 1 drops OPR QID JENAE Stop: 08/20/24 17:11 Last Admin: 07/23/24 07:38 Dose: 1 drops Prednisone (Prednisone 20 Mg Tab) 40 mg PO DAILY JENAE Stop: 07/26/24 09:01 Last Admin: 07/23/24 07:38 Dose: 40 mg Roflumilast (Roflumilast 500 Mcg Tab) 500 mcg PO DAILY JENAE Stop: 08/21/24 08:59 Last Admin: 07/23/24 07:35 Dose: 500 mcg Sodium Chloride (Sodium Chloride 5% Op Soln 15 Ml Btl) 1 drops OPR TID JENAE Stop: 08/20/24 17:11 Last Admin: 07/23/24 07:42 Dose: 1 drops
== END 2024-07-23 12:37 | disposition home or self-care (01) | DRG 871 ==
LOC: ED 10:06 → 2N 15:04 → SUATTDRO 16:15 → 2N 16:15
DX: Z79.899 Other long term (current) drug therapy; E78.5 Hyperlipidemia, unspecified; I10 Essential (primary) hypertension; E66.9 Obesity, unspecified; Z86.73 Personal history of transient ischemic attack (TIA), and cerebral infarction without residual deficits; B96.20 Unspecified Escherichia coli [E. coli] as the cause of diseases classified elsewhere; R07.9 Chest pain, unspecified; N39.0 Urinary tract infection, site not specified; J44.9 Chronic obstructive pulmonary disease, unspecified; Z95.5 Presence of coronary angioplasty implant and graft; Z79.82 Long term (current) use of aspirin; E11.9 Type 2 diabetes mellitus without complications; Z79.51 Long term (current) use of inhaled steroids; Z68.30 Body mass index [BMI] 30.0-30.9, adult; A41.9 Sepsis, unspecified organism; J96.21 Acute and chronic respiratory failure with hypoxia; G47.33 Obstructive sleep apnea (adult) (pediatric); Z88.5 Allergy status to narcotic agent; F17.210 Nicotine dependence, cigarettes, uncomplicated; I25.10 Atherosclerotic heart disease of native coronary artery without angina pectoris

== ENCOUNTER 2024-10-28 15:50 | Inpatient (IN) ==
[2024-10-28 16:27] LABS: Basophils # (auto) 0.06 K/uL (0.00-0.20); Basophils % (auto) 0.8 %; Eosinophils # (auto) 0.06 K/uL (0.00-0.50); Eosinophils % (auto) 0.8 %; Hematocrit (blood only) 43.2 % (42.0-52.0); Hemoglobin 14.6 g/dl (14.0-18.0); Immature Granulocytes # (auto) 0.02 K/uL (0.01-0.20); Immature Granulocytes % (auto) 0.3 %; Lymphocytes # (auto) 1.41 K/uL (1.20-3.40); Lymphocytes % (auto) 18.9 %; Mean Corpuscular Hemoglobin 29.5 pg (25.0-34.0); Mean Corpuscular Hgb Conc 33.8 g/dL (32.0-36.0); Mean Corpuscular Volume 87.3 fL (80.0-100.0); Mean Platelet Volume 10.5 fL (9.4-12.4); Monocytes # (auto) 0.79 K/uL (0.11-0.59); Monocytes % (auto) 10.6 %; Neutrophils # (auto) 5.13 K/uL (1.40-6.50); Neutrophils % (auto) 68.6 %; Platelet Count 185 K/uL (130-400); RDW Coefficient of Variation 12.7 % (11.5-14.5); RDW Standard Deviation 40.5 fL (36.4-46.3); Red Blood Count 4.95 M/uL (4.70-6.10); White Blood Count 7.47 K/ul (4.8-10.8)
--- NOTE | 2024-10-28 16:34 | XRay Report ---
EXAM: Radiograph of the Chest 1 View INDICATION: Chest pain. TECHNIQUE: Frontal view of the chest. COMPARISON: 07/21/2024 FINDINGS: Lungs and pleural spaces: Stable mild streaky scarring in the lung bases. No consolidation or pulmonary edema. No pleural effusion or pneumothorax. Heart: Shape and configuration within normal limits allowing for technique. Mediastinum: Normal contour. Bones/joints: Degenerative changes noted throughout the spine and both shoulders. No lytic or blastic lesions noted. Soft tissues: No abnormality noted. No radiopaque foreign body noted. Upper abdomen: No abnormality noted. IMPRESSION: No acute change noted. ACT 112: Negative or not required by law. Electronically signed by Fidelina Albarado 10-28-2024 4:34 PM
[2024-10-28 16:42] LABS: Albumin Globulin Ratio 1.2 (0.9-2); Albumin Level 4.2 gm/dl (3.4-5.0); BUN Creatinine Ratio 12.9 (10-20); Bilirubin,Total 0.5 mg/dl (0.2-1.0); Calcium 9.4 mg/dl (8.6-10.3); Creatinine Clr Calc Pharmacy 107.2 ml/min; Globulin 3.5 gm/dl (2.5-4.0); Potassium 3.8 mmol/L (3.5-5.1); Total Protein 7.7 gm/dl (6.0-8.3)
[2024-10-28 16:52] LABS: Partial Thromboplastin Time 27 Seconds (21-31); Prothrombin Time 10.5 Seconds (9.0-12.0); Troponin I High Sensitivity 542.5 pg/ml (0-20)
--- NOTE | 2024-10-28 16:54 | Electrocardiogram Report ---
Test Reason : Blood Pressure : */* mmHG Vent. Rate : 111 BPM Atrial Rate : 111 BPM P-R Int : 186 ms QRS Dur : 144 ms QT Int : 346 ms P-R-T Axes : -22 -68 16 degrees QTcB Int : 470 ms Sinus tachycardia with Premature atrial complexes with Aberrant conduction Left axis deviation Right bundle branch block Inferior infarct , age undetermined Anteroseptal infarct , age undetermined Abnormal ECG When compared with ECG of 22-Jul-2024 06:11, Aberrant conduction is now Present Vent. rate has increased by 57 bpm Right bundle branch block has replaced Incomplete right bundle branch block Anteroseptal infarct is now Present Confirmed by Suman Doan ([id number]) on 10/28/2024 4:53:38 PM Referred By: Confirmed By: Suman Doan
--- NOTE | 2024-10-28 17:19 | History & Physical Report ---
Date of Service October 28, 2024 Assessment & Plan (1) NSTEMI (non-ST elevated myocardial infarction): (2) Chronic hypoxic respiratory failure: (3) CAD (coronary artery disease): (4) T2DM (type 2 diabetes mellitus): (5) COPD (chronic obstructive pulmonary disease): (6) HTN (hypertension): (7) HLD (hyperlipidemia): (8) Marijuana use: (9) Tobacco abuse: Plan This is a 79 yr old M who has a significant PMH of Chronic Hypoxic respiratory failure on chronic oxygen therapy 3L, SANJAY, COPD, Right heart failure, CAD with hx of angioplasty and total of 4 stents, HTN, HLD, Chronic RBBB, tobacco abuse, marijuana abuse, hx of cva who presents to ED 2/2 Chest pain x 2-3 days. #NSTEMI #CAD - hx of stent placement in 2005 (1st and 2nd diagonal) and 2007 ( 2 in LAD) #Chronic R sided heart failure on asa, statin, lisinopril, torsemide initial trop 542.5pg/ml IV Heparin initiated in ED will cycle trops, update echo to eval for wall motion abnormality follows G cardiology, will consult NPO after midnight in event cardiac cath planned a1c, lipid panel in a.m #SANJAY #Chronic Hypoxic resp failure #tobacco abuse typically wears 3L at HS, is suppose to wear all day but is noncompliant no acute exac, prn inhalers tobacco cessation, declines nicotine patch #T2DM: chronic, stable, hold metformin, novolog S.S, a1c in a.m. 6.3 in July # R eye blindness: continue eye gtts DVT ppx: IV Heparin DNR/DNI discussed with theresa Hayes at bedside PCP: Kumar Anders Dispo: admit to PCU, npo after midnight in event cardiac cath warranted Pt was seen and examined in collaboration with Dr. Burnett, please addendum A total of 55 minutes was spent coordinating, documenting, and providing care for this patient excluding time spent in the performance of separately billed services. This included personally viewing all current laboratories and imaging studies, medication reconciliation, outpatient chart review, and discussion with specialists. History of Present Illness Chief Complaint: Chest pain x 2-3 days Primary Care Provider: Kumar Anders, This is a 79 yr old M who has a significant PMH of Chronic Hypoxic respiratory failure on chronic oxygen therapy 3L, SANJAY, COPD, Right heart failure, CAD with hx of angioplasty and total of 4 stents, HTN, HLD, Chronic RBBB, tobacco abuse, marijuana abuse, hx of cva who presents to ED 2/2 Chest pain x 2-3 days. He describes it as a, "pain." He is unable to describe it. His pain was located on the left side of his chest. He reports his Right arm feeling funny when the pain comes on. When the pain started he was sitting smoking a cigarette drinking a black coffee. He denies any dizziness, lightheaded, diaphoresis, palpitations, nausea or vomiting. Currently he denies any chest pain. He does have chronic SOB 2/2 smoking. He has a chronic cough. He feels his SOB is unchanged. He denies any recent illness, f/c/s or change in bowel or urinary habits. In ED pt was hypertensive. His ECG was w/o ischemic change. His initial trop was 542.5 pg/ml. He continues to smoke 1ppd. He denies any alcohol use. He is a chronic marijuana user. Allergies Allergy/AdvReac Type Severity Reaction Status Date / Time sodium Allergy Mild intolerance Unverified 07/21/24 12:17 has to drink a lot of water Home Medications Medication Instructions Recorded Confirmed Type albuterol sulfate 90 mcg/actuation 2 puff inhalation Q4H PRN 07/21/24 10/28/24 History aerosol inhaler cough,sob,wheezing aspirin 81 mg tablet,delayed 81 mg PO DAILY 07/21/24 10/28/24 History release atorvastatin 40 mg tablet 40 mg PO DAILY 07/21/24 10/28/24 History fluticasone fur. 100 mcg-umeclid 1 inh inhalation QAM 07/21/24 10/28/24 History 62.5 mcg-vilant 25 mcg inhalat.powder (Trelegy Ellipta) lisinopril 5 mg tablet 5 mg PO DAILY 07/21/24 10/28/24 History metformin 500 mg tablet 500 mg PO QAM 07/21/24 10/28/24 History nitroglycerin 0.4 mg sublingual 0.4 mg sublingual DIRECTED PRN 07/21/24 10/28/24 History tablet Chest Pain tiotropium bromide 2.5 2 puff inhalation DAILY 07/21/24 10/28/24 History mcg/actuation mist for inhalation (Spiriva Respimat) albuterol sulfate 2.5 mg/3 mL 2.5 mg (3 mL) inhalation Q4H PRN 07/23/24 10/28/24 Rx (0.083 %) solution for nebulization sob #360 mL dexlansoprazole 60 mg 60 mg PO DAILY 10/28/24 10/28/24 History capsule,biphase delayed release (Dexilant) roflumilast 500 mcg tablet 500 mcg PO DAILY 10/28/24 10/28/24 History (Daliresp) sertraline 25 mg tablet 25 mg PO DAILY 10/28/24 10/28/24 History sodium chloride 5 % eye drops 1 drp OPR QID 10/28/24 10/28/24 History torsemide 20 mg tablet 40 mg PO BID 10/28/24 10/28/24 History Past Med/Surg History Problem List (Updated 10/28/24 @ 17:47 by Violeta Benavidse PA-C) NSTEMI (non-ST elevated myocardial infarction) Demand ischemia of myocardium Stable angina Recent cerebrovascular accident (CVA) Stroke-like symptoms COPD exacerbation (Acute) Acute on chronic hypoxic respiratory failure Left-sided chest pain (Acute) Complicated UTI (urinary tract infection) (Acute) Sepsis Medical History Calculus of kidney Obesity (BMI 30.0-34.9) SANJAY (obstructive sleep apnea) Marijuana use Tobacco abuse Chronic hypoxic respiratory failure COPD (chronic obstructive pulmonary disease) T2DM (type 2 diabetes mellitus) CAD (coronary artery disease) HLD (hyperlipidemia) HTN (hypertension) Surgical History Hx of percutaneous left heart catheterization and 2 stents in 2007 LAD Hx laparoscopic cholecystectomy Hx of right heart catheterization 2 stents in 2005 1st and 2nd diagonal History of nasal surgery Hx of cataract extraction Hx of vasectomy Hx of tonsillectomy Family History Mother Osteoarthritis Coronary heart disease Hypertension Social History Smoking Status: Current every day smoker Tobacco Type: Cigarettes Second Hand Exposure: Yes; Do You Dip or Chew Tobacco: Yes; Hx Alcohol Use: No Hx Substance Use: Yes Last Used Substance: Just Prior to Arrival Preferred Language: Niuean Communication Ability: Effective Canoe Maker Required: No Beliefs That Will Affect Care: None Feels Safe at Home: Yes Assistive Devices: Cane, Glasses and Oxygen - Continuous Review of Systems Review of Systems: All systems reviewed & are unremarkable except as noted in HPI & below Physical Exam Physical Exam: please refer to Dr. Burnett addendum for physical exam findings Results & Data Results & Data Vital Signs (Past 12 Hours) Vital Signs Temp Pulse Resp BP Pulse Ox O2 Del Method O2 Flow Rate 10/28/24 16:34 Nasal Cannula 3 10/28/24 16:34 103 H 99 Nasal Cannula 3 10/28/24 16:34 Room Air, Nasal Cannula 0 10/28/24 15:55 36.5 C 112 H 19 146/99 H 94 Room Air Laboratory Results I have independently reviewed and interpreted patient's admitting labs including CBC, CMP, PTT, PT/INR, mag and troponin. Diagnostic Findings Chest X-Ray 10/28/24 15:58 EXAM: Radiograph of the Chest 1 View INDICATION: Chest pain. TECHNIQUE: Frontal view of the chest. COMPARISON: 07/21/2024 FINDINGS: Lungs and pleural spaces: Stable mild streaky scarring in the lung bases. No consolidation or pulmonary edema. No pleural effusion or pneumothorax. Heart: Shape and configuration within normal limits allowing for technique. Mediastinum: Normal contour. Bones/joints: Degenerative changes noted throughout the spine and both shoulders. No lytic or blastic lesions noted. Soft tissues: No abnormality noted. No radiopaque foreign body noted. Upper abdomen: No abnormality noted. IMPRESSION: No acute change noted. ACT 112: Negative or not required by law. Electronically signed by Fidelina Albarado 10-28-2024 4:34 PM ECG Additional Comments: I have independently reviewed and interpreted patient's admitting EKG which revealed: ST, 111bpm , PAC +LAD, RBBB COVID-19 Results Results COVID-19 Adm Lab Results: RBC 4.95 M/uL (4.70-6.10) 10/28/24 WBC 7.47 K/ul (4.8-10.8) 10/28/24 Hgb 14.6 g/dl (14.0-18.0) 10/28/24 Hct 43.2 % (42.0-52.0) 10/28/24 Plt Count 185 K/uL (130-400) 10/28/24 Neutrophils (%) (Auto) 68.6 % 10/28/24 Lymphocytes (%) (Auto) 18.9 % 10/28/24 Eosinophils # (Auto) 0.06 K/uL (0.00-0.50) 10/28/24 Immature Granulocyte % (Auto) 0.3 % 10/28/24 Neutrophils # (Auto) 5.13 K/uL (1.40-6.50) 10/28/24 Lymphocytes # (Auto) 1.41 K/uL (1.20-3.40) 10/28/24 Eosinophils # (Auto) 0.06 K/uL (0.00-0.50) 10/28/24 Basophils # (Auto) 0.06 K/uL (0.00-0.20) 10/28/24 Immature Granulocyte # (Auto) 0.02 K/uL (0.01-0.20) 4 Na 142 mmol/L (136-145) 10/28/24 K 3.8 mmol/L (3.5-5.1) 10/28/24 Cl 103 mmol/L (98-107) 10/28/24 CO2 32 mmol/L (21-32) 10/28/24 Anion Gap 7 (3-11) 10/28/24 BUN 9 mg/dl (6-23) 10/28/24 Creatinine 0.70 mg/dl (0.6-1.4) 10/28/24 BUN/Creatinine Ratio 12.9 (10-20) 10/28/24 Glucose Level 103 mg/dl (70-99(Fasting)) H 10/28/24 Ca 9.4 mg/dl (8.6-10.3) 10/28/24 Total Bilirubin 0.5 mg/dl (0.2-1.0) 10/28/24 AST/SGOT 20 U/L (13-39) 10/28/24 ALT/SGPT 11 U/L (7-52) 10/28/24 Alkaline Phosphatase 119 U/L (34-104) H 10/28/24 Total Protein 7.7 gm/dl (6.0-8.3) 10/28/24 Albumin 4.2 gm/dl (3.4-5.0) 10/28/24 Globulin 3.5 gm/dl (2.5-4.0) 10/28/24 Albumin/Globulin Ratio 1.2 (0.9-2) 10/28/24 PTT 27 Seconds (21-31) 10/28/24 INR 1.0 (0.9-1.1) 10/28/24 Chest X-Ray 10/28/24 Code Status & VTE Plan Code Status DNR VTE Prophylaxis Plan VTE Prophylaxis will be ordered: No Supervising Physician Co-Signing Physician Notes Patient seen and examined Reports chest pain for the past few days but currently resolved Detailed history difficult to obtain due to hearing deficits General: Elderly man in no distress Eyes: EOMI, not pale ENMT: External ear and nose normal, oropharynx normal Respiratory: Normal respiratory effort, no respiratory distress, lungs clear to auscultation, no crackles and no wheezes Cardiovascular: RRR s1 s2 Gastrointestinal (Abdomen): Abdomen is not distended, soft, non-tender to palpation, no guarding, no palpable hepatosplenomegaly, normal bowel sounds Musculoskeletal: No pedal edema Neurologic: No focal weakness, sensation grossly intact Psychiatric: Euthymic affect Chest pain Significant h/o CAD s/p stents EKG reviewed Labs notable for trop of 542. Alk P 119 NSTEMI Continue hep gtt NPO PMN Cards c/s Trend trop TTE I spent a total of 45 minutes coordinating, documenting and providing care for this patient excluding time spent in performance of separately billed services
[2024-10-28] MEDS: ASPIRIN CHEW 324 MG PO STA (17:27)
[2024-10-28] MEDS: HEPARIN SODIUM/DEXTROSE 25,000 UNITS/500 ML BAG IV SCH (17:57)
[2024-10-28] MEDS: Heparin IV Adult Wt-Based Standard *NO* INITIAL Bolus Protocol IV STA (17:58)
--- NOTE | 2024-10-28 18:58 | Emergency Department Note ---
ED Provider Note NAME: JESSICA MCCANN AGE: 79 SEX: Male INFORMANT: Patient ED PROVIDER(S): Mariel Luis DO CHIEF COMPLAINT: chest pain PLAN: Disposition: [] Outpatient prescription management: [none] Referral: [] MEDICAL DECISION MAKING: this is a 79-year-old male patient presents to the emergency department with his daughter after having intermittent episodes of chest pain over the past 3 days. Care/management discussed with: ED case management and [facility] Triage Nursing notes: reviewed and agree with them. Vital Signs: reviewed and unremarkable Additional History obtained from: the daughter who is at the bedside Chronic Medical/Social Conditions affecting care: coronary artery disease with previous stent placement in 2005/2007; significant tobacco abuse Differential Diagnosis: STEMI, NSTEMI, aortic dissection, GERD, pneumothorax Diagnostics, independently interpreted by me: ECG: sinus tachycardia at a rate of 111 with a right bundle branch block and evidence of an anteroseptal infarct. There is an occasional PVC. Cardiac Monitoring: Sinus tachycardia at a rate of 112 Medical decision rules: [none] Imaging studies: portable chest x-ray: No pneumothorax. No acute pulmonary infiltrates or consolidation as per my independent interpretation HPI: 79 year old Male arrives for evaluation of substernal chest discomfort. intermittent episodes of chest pain over the past 3 days. PAST MEDICAL HISTORY: See Below, PAST SURGICAL HISTORY: See Below, SOCIAL HISTORY: See Below, HOME MEDICATIONS: see list ALLERGIES: see list VITALS: See Below PHYSICAL EXAMINATION: HEENT: Head - normocephalic and atraumatic Pupils are equal, round, and reactive to light. Extraocular eye muscles are intact, and sclera are anicteric. Nose - moist nasal mucosa without discharge. Mouth - moist buccal mucosa. Oropharynx is nonerythematous and there is no tonsillar exudate or edema noted. Neck: Supple; no JVD, nuchal rigidity, cervical lymphadenopathy, or auscultated bruits. Heart: Regular rate and rhythm. There is a normal S1 and S2 with no murmurs, clicks, or gallops appreciated. Lungs: Clear to auscultation bilaterally with no wheezes, rales, or rhonchi. Abdomen: Soft, completely nontender, nondistended, with good bowel sounds. There are no palpable pulsatile masses or hepatosplenomegaly. There is no guarding, rigidity, or rebound noted. Extremities: No evidence of cyanosis, clubbing, or edema. There are easily palpable peripheral pulses. Skin: warm and dry with good turgor and no rashes. Emergency Department treatment: monitor technician, oral aspirin, IV heparin drip Emergency Department course: The patient was evaluated in room B-12. A complete history and physical was performed. An order was placed for continuous cardiac monitoring. The patient was in a sinus tachycardia at a rate of 112. Past Med/Surg History Problem List (Updated 10/28/24 @ 17:47 by Violeta Benavides PA-C) NSTEMI (non-ST elevated myocardial infarction) Demand ischemia of myocardium Stable angina Recent cerebrovascular accident (CVA) Stroke-like symptoms COPD exacerbation (Acute) Acute on chronic hypoxic respiratory failure Left-sided chest pain (Acute) Complicated UTI (urinary tract infection) (Acute) Sepsis Medical History Calculus of kidney Obesity (BMI 30.0-34.9) SANJAY (obstructive sleep apnea) Marijuana use Tobacco abuse Chronic hypoxic respiratory failure COPD (chronic obstructive pulmonary disease) T2DM (type 2 diabetes mellitus) CAD (coronary artery disease) HLD (hyperlipidemia) HTN (hypertension) Surgical History Hx of percutaneous left heart catheterization and 2 stents in 2007 LAD Hx laparoscopic cholecystectomy Hx of right heart catheterization 2 stents in 2005 1st and 2nd diagonal History of nasal surgery Hx of cataract extraction Hx of vasectomy Hx of tonsillectomy Family History Mother Osteoarthritis Coronary heart disease Hypertension Social History Smoking Status: Current every day smoker Tobacco Type: Cigarettes Second Hand Exposure: Yes; Do You Dip or Chew Tobacco: Yes; Hx Alcohol Use: No Hx Substance Use: Yes Last Used Substance: Just Prior to Arrival Preferred Language: Marshallese Communication Ability: Effective Pipe Installer Required: No Beliefs That Will Affect Care: None Feels Safe at Home: Yes Assistive Devices: Cane, Glasses and Oxygen - Continuous Allergies Allergies Allergy/AdvReac Type Severity Reaction Status Date / Time sodium Allergy Mild intolerance Unverified 07/21/24 12:17 has to drink a lot of water Home Meds Home Medications Medication Instructions Recorded Confirmed albuterol sulfate 90 mcg/actuation 2 puff inhalation Q4H PRN 07/21/24 10/28/24 aerosol inhaler cough,sob,wheezing aspirin 81 mg tablet,delayed 81 mg PO DAILY 07/21/24 10/28/24 release atorvastatin 40 mg tablet 40 mg PO DAILY 07/21/24 10/28/24 fluticasone fur. 100 mcg-umeclid 1 inh inhalation QAM 07/21/24 10/28/24 62.5 mcg-vilant 25 mcg inhalat.powder (Trelegy Ellipta) lisinopril 5 mg tablet 5 mg PO DAILY 07/21/24 10/28/24 metformin 500 mg tablet 500 mg PO QAM 07/21/24 10/28/24 nitroglycerin 0.4 mg sublingual 0.4 mg sublingual DIRECTED PRN 07/21/24 10/28/24 tablet Chest Pain tiotropium bromide 2.5 2 puff inhalation DAILY 07/21/24 10/28/24 mcg/actuation mist for inhalation (Spiriva Respimat) dexlansoprazole 60 mg 60 mg PO DAILY 10/28/24 10/28/24 capsule,biphase delayed release (Dexilant) roflumilast 500 mcg tablet 500 mcg PO DAILY 10/28/24 10/28/24 (Daliresp) sertraline 25 mg tablet 25 mg PO DAILY 10/28/24 10/28/24 sodium chloride 5 % eye drops 1 drp OPR QID 10/28/24 10/28/24 torsemide 20 mg tablet 40 mg PO BID 10/28/24 10/28/24 Previous Rx's Medication Instructions Recorded albuterol sulfate 2.5 mg/3 mL 2.5 mg (3 mL) inhalation Q4H PRN 07/23/24 (0.083 %) solution for nebulization sob #360 mL Results & Data (ED) Vital Signs Vital Signs - 24 hr 10/28/24 15:55 10/28/24 16:34 10/28/24 16:34 Temperature 36.5 C Temperature Source Temporal Artery Scan Pulse Rate 112 H 103 H Pulse Rate [Apical] Respiratory Rate 19 Respiratory Effort / Characteristics Non-Labored Spontaneous Respiratory Depth Normal Respiratory Pattern Blood Pressure 146/99 H Blood Pressure [Right Arm] Blood Pressure Mean 114 Blood Pressure Mean [Right Arm] Blood Pressure Position Sitting Pulse Oximetry 94 99 Oxygen Delivery Method Room Air Room Air Nasal Cannula Nasal Cannula Oxygen Flow Rate 0 3 Sepsis Recent Fever Within 48 Hours No Sepsis New/Unexplained Change in Mental Status No Sepsis Action Taken by Nursing No Action Required Oxygen Flow Rate - Titration 3 Pulse Oximetry Post Tiitration 99 10/28/24 16:34 10/28/24 17:25 10/28/24 17:30 Temperature Temperature Source Pulse Rate 107 H Pulse Rate [Apical] 100 H Respiratory Rate 18 Respiratory Effort / Characteristics Non-Labored Spontaneous Non-Labored Spontaneous Respiratory Depth Normal Normal Respiratory Pattern Regular Blood Pressure Blood Pressure [Right Arm] 125/89 Blood Pressure Mean Blood Pressure Mean [Right Arm] 101 Blood Pressure Position Pulse Oximetry 97 Oxygen Delivery Method Nasal Cannula Nasal Cannula Oxygen Flow Rate 3 3 Sepsis Recent Fever Within 48 Hours Sepsis New/Unexplained Change in Mental Status Sepsis Action Taken by Nursing Oxygen Flow Rate - Titration Pulse Oximetry Post Tiitration 10/28/24 17:51 Temperature Temperature Source Pulse Rate Pulse Rate [Apical] 98 H Respiratory Rate 18 Respiratory Effort / Characteristics Non-Labored Spontaneous Respiratory Depth Normal Respiratory Pattern Regular Blood Pressure Blood Pressure [Right Arm] 122/74 Blood Pressure Mean Blood Pressure Mean [Right Arm] 90 Blood Pressure Position Pulse Oximetry 98 Oxygen Delivery Method Nasal Cannula Oxygen Flow Rate 3 Sepsis Recent Fever Within 48 Hours Sepsis New/Unexplained Change in Mental Status Sepsis Action Taken by Nursing Oxygen Flow Rate - Titration Pulse Oximetry Post Tiitration Laboratory Data 10/28/24 16:08 10/28/24 16:08 Lab Results 10/28/24 Range/Units 16:08 WBC 7.47 (4.8-10.8) K/ul RBC 4.95 (4.70-6.10) M/uL Hgb 14.6 (14.0-18.0) g/dl Hct 43.2 (42.0-52.0) % MCV 87.3 (80.0-100.0) fL MCH 29.5 (25.0-34.0) pg MCHC 33.8 (32.0-36.0) g/dL RDW Std Deviation 40.5 (36.4-46.3) fL RDW Coeff of Aileen 12.7 (11.5-14.5) % Plt Count 185 (130-400) K/uL MPV 10.5 (9.4-12.4) fL Immature Gran % (Auto) 0.3 % Neut % (Auto) 68.6 % Lymph % (Auto) 18.9 % [place] % (Auto) 10.6 % Eos % (Auto) 0.8 % Baso % (Auto) 0.8 % Neut # (Auto) 5.13 (1.40-6.50) K/uL Lymph # (Auto) 1.41 (1.20-3.40) K/uL [place] # (Auto) 0.79 H (0.11-0.59) K/uL Eos # (Auto) 0.06 (0.00-0.50) K/uL Baso # (Auto) 0.06 (0.00-0.20) K/uL Immature Gran # (Auto) 0.02 (0.01-0.20) K/uL PT 10.5 (9.0-12.0) Seconds INR 1.0 (0.9-1.1) APTT 27 (21-31) Seconds PTT Ratio 1.0 Sodium 142 (136-145) mmol/L Potassium 3.8 (3.5-5.1) mmol/L Chloride 103 (98-107) mmol/L Carbon Dioxide 32 (21-32) mmol/L Anion Gap 7 (3-11) BUN 9 (6-23) mg/dl Creatinine 0.70 (0.6-1.4) mg/dl Est Cr Clr Drug Dosing 107.2 ml/min eGFR 94.90 BUN/Creatinine Ratio 12.9 (10-20) Glucose 103 H (70-99(Fasting)) mg/dl Calcium 9.4 (8.6-10.3) mg/dl Total Bilirubin 0.5 (0.2-1.0) mg/dl AST 20 (13-39) U/L ALT 11 (7-52) U/L Alkaline Phosphatase 119 H (34-104) U/L Troponin I High Sens 542.5 H* (0-20) pg/ml Total Protein 7.7 (6.0-8.3) gm/dl Albumin 4.2 (3.4-5.0) gm/dl Globulin 3.5 (2.5-4.0) gm/dl Albumin/Globulin Ratio 1.2 (0.9-2) Administered Medications Heparin Sodium/Dextrose (Heparin Sodium/Dextrose) 25,000 units in 500 mls @ 31 mls/hr IV .[id number] JENAE; Protocol Stop: 11/27/24 17:29 Last Admin: 10/28/24 17:57 Dose: 1,550 units/hr, 31 mls/hr Documented By: SONG Co-signed By: WHIT Discontinued Medications Aspirin (Aspirin Chew 324 Mg) 324 mg PO NOW STA Stop: 10/28/24 17:09 Last Admin: 10/28/24 17:27 Dose: 324 mg Documented By: WHIT Heparin Sodium/Dextrose (Heparin Iv Adult Wt-Based Standard *No* Initial Bolus Protocol) 1 each IV ONE STA; Protocol Stop: 10/28/24 17:09 Last Admin: 10/28/24 17:58 Dose: Not Given Documented By: SONG Imaging Data Radiologist's Impression: Chest X-Ray 10/28/24 15:58 EXAM: Radiograph of the Chest 1 View INDICATION: Chest pain. TECHNIQUE: Frontal view of the chest. COMPARISON: 07/21/2024 FINDINGS: Lungs and pleural spaces: Stable mild streaky scarring in the lung bases. No consolidation or pulmonary edema. No pleural effusion or pneumothorax. Heart: Shape and configuration within normal limits allowing for technique. Mediastinum: Normal contour. Bones/joints: Degenerative changes noted throughout the spine and both shoulders. No lytic or blastic lesions noted. Soft tissues: No abnormality noted. No radiopaque foreign body noted. Upper abdomen: No abnormality noted. IMPRESSION: No acute change noted. ACT 112: Negative or not required by law. Electronically signed by Fidelina Albarado 10-28-2024 4:34 PM Discharge Plan Visit Data Chief Complaint: Cardiac Assessment Stated Complaint: SOB, CHEST PAIN, SHOULD PAIN, BACKPAIN ED Provider: Mariel Luis Forms Stand Alone Forms: My [employer] Prescriptions Prescriptions: No Action atorvastatin 40 mg tablet 40 mg PO DAILY metformin 500 mg tablet 500 mg PO QAM aspirin 81 mg Tablet,Delayed Release (Dr/Ec) 81 mg PO DAILY nitroglycerin 0.4 mg Tablet, Sublingual 0.4 mg sublingual DIRECTED PRN (Reason: Chest Pain) lisinopril 5 mg tablet 5 mg PO DAILY albuterol sulfate 90 mcg/actuation HFA aerosol inhaler 2 puff INHALATION Q4H PRN (Reason: cough,sob,wheezing) Spiriva Respimat 2.5 mcg/actuation Mist 2 puff INHALATION DAILY Trelegy Ellipta 100-62.5-25 mcg blister with device 1 inh INHALATION QAM albuterol sulfate 2.5 mg /3 mL (0.083 %) Solution For Nebulization 2.5 mg inhalation Q4H PRN (Reason: sob) Qty: 360 0RF sertraline 25 mg tablet 25 mg PO DAILY dexlansoprazole [Dexilant] 60 mg capsule,biphase delayed releas 60 mg PO DAILY torsemide 20 mg tablet 40 mg PO BID roflumilast [Daliresp] 500 mcg Tablet 500 mcg PO DAILY sodium chloride [Murtaza-128] 5 % Drops 1 drp OPR QID Rx Instructions: am, noon, evening and HS Referrals Referrals: Kumar Anders DO [Primary Care Provider] -
[2024-10-28] MEDS ORDERED: CARBOHYDRATES FOR HYPOGLYCEMIA PO PRN (19:00)
[2024-10-28] MEDS ORDERED: DEXTROSE 50% 50 ML SYRINGE IV PRN (19:00)
[2024-10-28] MEDS ORDERED: GLUCOSE 40% GEL 15 GM TUBE PO PRN (19:00)
[2024-10-28] MEDS ORDERED: GLUCAGON FOR INJ 1 MG VIAL SQ PRN (19:00)
[2024-10-28] MEDS ORDERED: ACETAMINOPHEN 325 MG TAB PO PRN (19:00)
[2024-10-28] MEDS ORDERED: GLUCOSE 10 TAB/TUBE PO PRN (19:00)
[2024-10-28] MEDS ORDERED: ALBUT/IPRATROP 3MG/0.5MG NEB 3 ML VIAL NEB PRN (19:00)
[2024-10-28] MEDS ORDERED: ONDANSETRON INJ 2 MG/ML 2 ML VIAL IV PRN (19:00)
[2024-10-28] MEDS ORDERED: FAMOTIDINE 20 MG TAB PO PRN (19:00)
[2024-10-28] MEDS: SODIUM CHLORIDE 5% OP SOLN 15 ML BTL OPR SCH (20:01)
[2024-10-28] MEDS ORDERED: INFLUENZA VACC TS2024-25(65y+)/PF (IIV3) 0.5mL Syr IM ONE (20:43)
[2024-10-28] MEDS: TORSEMIDE 20 MG TAB PO SCH (21:25)
[2024-10-28] MEDS: MELATONIN 3 MG TAB PO PRN (21:25)
[2024-10-28] MEDS: INSULIN ASPART PER UNIT CHARGE SC SCH (21:26)
--- OUTSIDE RECORDS SUMMARY | 2024-10-29 00:44 | External Medical Summary | Summary of Care ---
Author Name Unknown Organization [facility] Address [address] [place] [address] Phone [phone] Care Team Providers Care Director Of Finance Name Role Phone AndersKaleb garcian Yifan Primary Care Provider [phone] Encounter Details Date Type Department Care Team (Latest Contact Info) Description 08/30/2024 1:12 PM EDT - 08/30/2024 11:59 PM EDT Hospital Encounter Cardiac Studies, [facility] [address] [place] [address] Glh, Manager [address] [address] Discharge Disposition: Home - Self Care Allergies Active Allergy Reactions Criticality Noted Date Comments Penicillins Hives 06/19/2009 Pentobarbital Sodium 04/10/2014 documented as of this encounter (statuses as of 08/31/2024) Medications Medication Sig Dispensed Refills Start Date [...] 5 12/01/2016 Active Respiratory Therapy Supplies [email or web address] airfit mask w/head gear, supply tubing, filter, non-disposable filter, cushion DX G 47.33 1 Kit 09/08/2017 Active albuterol (VENTOLIN HFA) 108 (90 [...] by mouth in the morning. 1 Each 08/22/2023 Active Torsemide 20 MG Oral Tablet [...] BEFORE BEDTIME. 30 mL 5 04/30/2024 Active [employer]BD Displays Ultra In Vitro Strip TEST SUGAR TWICE DAILY 05/15/2024 Active documented as of this encounter (statuses as of 08/31/2024) Active Problems Problem Noted Date Diagnosed Date [...] - LEXY o Class D - Inhaled Ncloqddygjivpj-RQUT-BYYB Combination Inhaler (Edllegy) Self-Management plan o High [...] on file. [facility]CP [facility] Coronary atherosclerosis of [place] coronary [place] ry 08/28/2011 BMI 35-39 ISOLATED (SEE ACTUAL BMI) 04/19/2010 Overview: Per Obesity Protocol, #19 SANJAY (obstructive sleep apnea) Last Assessment & Plan: Refuses CPAP documented as of this encounter (statuses as of 08/31/2024) Resolved Problems Problem Noted Date Diagnosed Date Resolved Date COPD, group C, by GOLD 2017 classification 07/18/2022 11/17/2022 Overview: Per COPD GOLD Classification COPD exacerbation 08/07/2019 04/18/2023 COPD exacerbation 03/26/2017 04/18/2023 COPD, severe 03/16/2015 07/21/2022 Overview: Per COPD GOLD Classification Respiratory failure 03/16/2015 04/18/20 23 Hypoxemia 04/18/2023 documented as of this encounter (statuses as of 08/31/2024) Immunizations Name Administration Dates Next Due COVID-19 mRNA, LNP-s, No Pre serve, 2-Dose Series (Moderna) 02/23/2021,02/05/2021 COVID-19, mRNA, LNP-s, PF, B ooster, 100mcg/0.5mg (Moderna) 10/19/2021 Pneumococcal Polysaccharide PPV23 (Pneumovax) Seasonal Influenza Vac., MDV, IM, 0.5 mL (Fluzon e) 08/05/2013 Seasonal Influenza, High Dos e, Trivalent, PF, IM (Fluzone HD) 07/16/2018 Seasonal Influenza, Quadrivalent Hd, 65+ Yrs 11/2019 Seasonal Influenza, Trivalent, (IIV3), PF, (Fluz one) 08/06/2017 Seasonal Influenza, Trivalen t, Adjuvanted, 65+ YRS, [...] Drinking Daily or almost jerald y 04/22/2020 PHQ-2 Answer Date Recorded PHQ Adult Total Score 0 07/12/2024 Hunger Vital Sign Answer Date Recorded Within [...] 07/12/2024 Does the household have a re lar source of income? (Household - for ages [...] EDT Office Visit Ophthalmology, [place] [address] David Wang MD [place] [address] Health Maintenance Due Date Last Done Comments [...] the patient have Health Care Power of Manager Search Engine? Yes, not currently available * Full Code Date Activated Date Inactivated Comments 12/13/2016 12:32 AM 12/14/2016 7:45 PM This order re flects the patients wishes and were consensually agreed upon. Healthcare Agents on File Name Relationship Healthcare Agent Relationsct p Communication [facility] Repr esentative (appointed verbally by patient or by statute hierarchy) Care Teams Director Of Finance Relationship Specialty Start Date End Date Kumar Anders DO [address] [place], [place] [id number] PCP - General 12/14/07 documented as of this encounter
--- OUTSIDE RECORDS SUMMARY | 2024-10-29 00:44 | External Medical Summary | Summary of Care ---
Author Name Unknown Organization [facility] Address [address] [place] [address] Phone [phone] Care Team Providers Care Disulfurizer Tender Name Role Phone AndersKumar garcia Primary Care Provider [phone] Encounter Details Date Type Department Care Team (Late st Contact Info) Description 09/12/2024 Population Health External Data Unspecified Department Allergies Active Allergy Reactions Criticality Noted Date Comments Penicillins Hives 06/19/2009 Pentobarbital Sodium 04/10/2014 documented as of this encounter (statuses as of 09/19/2024) Medications ASPIRIN 81 MG PO TABS Active ATORVASTATIN CALCIUM 40 MG PO TABS one daily Active Hydrocodone-Acet aminophen 10-325 MG per tablet Take 1 Tablet by mouth every 4 hours as needed. 0 5 Active lisinopril (PRINIVIL) 5 MG Tablet Take 1 Tablet by mouth in the morning. 5 5 Active nitroglycerin (NITROSTAT) 0.4 MG SUBL Active metFORMIN (GLUCOPHAGE) 500 MG Tablet Take 1 Tablet by mouth daily with breakfast. 5 7 Active Respiratory Therapy Supplies KIT Med resmed airfit mask w/head gear, supply tubing, filter, non-disposable filter, cushion DX G 47.33 1 Kit 11 7 Active albuterol (VENTOLIN HFA) 108 (90 BASE) MCG/ACT inhalerIndicatio ns:COPD, moderate (HCC) Inhale 2 Puffs by mouth every 4 hours as needed for Cough, Shortness of Breath, Wheezing or Dyspnea. 1 Inhaler 11 8 Active oxygen IN GAS Continue 3L Oxygen at night daily, discontinue oxygen during daytime. 1 Each 2 Active Dexilant 60 MG Oral Capsule Delayed ReleaseIndicatio ns:HTN, goal below 140/90 Take 1 Capsule by mouth in the morning. 30 Capsule 5 3 Active Roflumilast 500 MCG Oral Tablet (Daliresp)Indica tions:HTN, goal below 140/90 Take 1 Tablet by mouth in the morning. 30 Tablet 5 3 Active Ciprofloxacin HCl 0.3 % Ophthalmic Solution Instill 1 Drop into both eyes in the morning and 1 Drop at noon and 1 Drop in the evening and 1 Drop before bedtime. 5 mL 1 3 Active Albuterol Sulfate (2.5 MG/3ML) 0.083% Inhalation Nebulization Solution (Proventil) Inhale 1 Vial via nebulizer every 4 hours as needed for Wheezing. 360 mL 1 3 Active Gabapentin 400 MG Oral Capsule (Neurontin) TAKE 1 CAPSULE BY MOUTH BEFORE BED 90 Capsule 1 3 Active Acetaminophen 500 MG Oral Tablet (Tylenol) Take 1 Tablet by mouth every 6 hours as needed. Active Fluticasone-Umec lidin-Vilant 100-62.5-25 MCG/ACT Aerosol Powder Breath Activated (Trelegy Ellipta)Indicati ons:COPD, severe (HCC) Inhale 1 Puff by mouth in the morning. 1 Each 5 3 Active Torsemide 20 MG Oral Tablet Take 2 Tablets by mouth 2 times a day in the morning and at noon. 360 Tablet 3 4 Active Sodium Chloride (Hypertonic) 5 % Ophthalmic Solution (Murtaza-128) INSTILL 1 DROP INTO THE RIGHT EYE IN THE MORNING AND 1 DROP AT NOON AND 1 DROP IN THE EVENING AND 1 DROP BEFORE BEDTIME. 30 mL 5 4 Active OneTouch Ultra In Vitro Strip TEST SUGAR TWICE DAILY 4 Active documented as of this encounter (statuses as of 09/19/2024) Active Problems Problem Noted Date Diagnosed Date Marijuana smoker 04/18/2023 Type 2 diabetes mellitus wit h diabetic peripheral angiopathy without gangrene 04/17/2023 Assessment & Plan (04/18/2023 2:13 PM EDT): "RED FLAG" Diabetic symptoms: o Confusion and Vision Changes Goal HgbA1c o <8 Diabetic Complications o Vascular (examples: PVD, PAD, CAD, CVA) Medication Regimen o Metformin DM Secondary Prevention o ELADIO Inhibitor / ARB o Moderate-High Intensity Statin o Aspirin Additional Comments o Roommate reports his last hgba1c 6. Aortic atherosclerosis 04/17/2023 Assessment & Plan (04/18/2023 1:58 PM EDT): Aortic Atherosclerosis noted on prior imaging. Continue with treatment including Antiplatelet therapy Blood pressure control Lipid control Smoking abstinence/cessation Glycemic control COPD, group D, by GOLD 2017 classification 11/14 Overview: Per COPD GOLD Classification Assessment & Plan (04/18/2023 2:04 PM EDT): "RED FLAG" COPD symptoms: o NO IDENTIFIED SYMPTOMS Medication Regimen o All Classes - LEXY o Class D - Inhaled Rizuqbzhgkwgzx-NGZK-WWNR Combination Inhaler (Trellegy) Self-Management plan o High frequency nebulizer treatments every 4-6 hours around the clock o Begin wearing supplemental oxygen continuously until symptoms return to baseline Exacerbation plan o BMP o Chest Xray Additional Comments: o Stable today Chronic rhinitis 09/10/2020 Hearing loss, mixed, bilateral 09/10/2020 RBBB (right bundle branch block) 09/02/2019 Rhinovirus infection 08/08/2019 Chronic respiratory failure with hypoxia 019 Assessment & Plan (04/18/2023 2:03 PM EDT): Wearing 2L qhs and prn Pre-syncope 12/09/2018 Falls 12/09/2018 Pneumonia 12/09/2018 Acute midline low back pain without sciatica Lumbar radiculopathy 03/26/2017 Chronic back pain 03/26/2017 Assessment & Plan (04/18/2023 2:46 PM EDT): Taking vicodin prn Controlled substance agreement signed 03/25/2017 Tobacco abuse 03/16/2015 Assessment & Plan (04/18/2023 2:14 PM EDT): Not interested in cessation. Rolls own cigarettes and smokes 3ppd including marijuana. HTN, goal below 140/90 08/28/2011 Percutaneous transluminal coronary angioplasty s tatus 08/28/2011 Type 2 diabetes mellitus wit h hemoglobin A1c goal of less than 7.0% 08/28/2011 Overview (03/01/2016): ICD-10 update of inactive term Dyslipidemia, goal to be determined 08/28/2011 Assessment & Plan (04/18/2023 2:17 PM EDT): Continues atorvastatin--no Lipid panel on file. [facility]CP [facility] Coronary atherosclerosis of [place] coronary [place] ry 08/28/2011 BMI 35-39 ISOLATED (SEE ACTUAL BMI) 04/19/2010 Overview (04/19/2010): Per Obesity Protocol, #19 SANJAY (obstructive sleep apnea) Assessment & Plan (04/18/2023 2:15 PM EDT): Refuses CPAP documented as of this encounter (statuses as of 09/19/2024) Resolved Problems Problem Noted Date Diagnosed Date Resolved Date COPD, group C, by GOLD 2017 classification 07/18/2022 11/17/2022 Overview: Per COPD GOLD Classification COPD exacerbation 08/07/2019 04/18/2023 COPD exacerbation 03/26/2017 04/18/2023 COPD, severe 03/16/2015 07/21/2022 Overview: Per COPD GOLD Classification Respiratory failure 03/16/2015 04/18/20 23 Hypoxemia 04/18/2023 documented as of this encounter (statuses as of 09/19/2024) Immunizations Name Administration Dates Next Due COVID-19 [...] Recorded Sex Assigned at Not on file Legal Sex Male 5:06 AM EST Gender Identity Not on file Sexual Orientation Not on file Occupation Industry Job Start Date Job End Date Disabled Not on file Not on file Not on file documented as of this encounter Functional Status * Are you deaf or do you have serious difficulty hearing? Answer Date of Assessment Author No 08/07/2019 11:59 PM Jose Montalvo RN * Are you blind or do you have serious difficulty seeing, even when wearing glasses? Answer Date of Assessment Author No 08/07/2019 11:59 PM Jose Montalvo RN * Do you have serious difficulty walking or climbing stairs? (5 years old or older) Answer Date of Assessment Author No 08/07/2019 11:59 PM Jose Montalvo RN * Do you have difficulty dressing or bathing? (5 years old or older) Answer Date of Assessment Author No 08/07/2019 11:59 PM Jose Montalvo RN * Because of a physical, mental, or emotional condition, do you have difficulty doing errands alone such as visiting a doctors office or shopping? (15 years old or older) Answer Date of Assessment Author Yes 08/07/2019 11:59 PM Jose Montalvo RN documented as of this encounter Mental Status * Because of a physical, mental, or emotional condition, do you have serious difficulty concentrating, remembering, or making decisions? (5 years old or older) Answer Entry Date Author No 08/07/2019 11:59 PM EDT Jose Smiley RN documented in this encounter Plan of Treatment Upcoming Encounters Date Type Department Care Team (Late st Contact Info) Description 06/26/2025 8:15 AM EDT Office Visit Ophthalmology, [place] [address] [address] David Wang MD [address] [address] Health Maintenance Due Date Last Done Comments [...] the patient have Health Care Power of Turbine Inspector? Yes, not currently available * Full Code Date Activated Date Inactivated Comments 12/13/2016 12:32 AM 12/14/2016 7:45 PM This order re flects the patients wishes and were consensually agreed upon. Healthcare Agents on File Name Relationship Healthcare Agent Relationshi p Communication [facility] [place] Adult Child Health Care Repr esentative (appointed verbally by patient or by statute hierarchy) Care Teams Disulfurizer Tender Relationship Specialty Start Date End Date Kumar Anders DO [address] [place] [address] PCP - General 12/14/07 documented as of this encounter
--- OUTSIDE RECORDS SUMMARY | 2024-10-29 00:44 | External Medical Summary | Summary of Care ---
Author Name Unknown Organization [facility] Address [address] [place] [address] Phone [phone] Care Team Providers Care Pharmacy Clinical Specialist Name Role Phone Kumar Anders Primary Care Provider [phone] Encounter Details Date Type Department Care Team (Late st Contact Info) Description 08/20/2024 Population Health External Data Unspecified Department Allergies Active Allergy Reactions Criticality Noted Date Comments Penicillins Hives 06/19/2009 Pentobarbital Sodium 04/10/2014 documented as of this encounter (statuses as of 08/21/2024) Medications Medication Sig Dispensed Refills Start Date [...] 5 12/01/2016 Active Respiratory Therapy Supplies KIT [employer] resmed airfit mask w/head gear, supply tubing, [...] as of this encounter (statuses as of 08/21/2024) Active Problems Problem Noted Date Diagnosed Date [...] - LEXY o Class D - Inhaled Pspuudculkahrq-BMOC-HZYP Combination Inhaler (Trellegy) Self-Management plan o High [...] on file. [facility]CP [facility] Coronary atherosclerosis of [place] coronary [place] ry 08/28/2011 BMI 35-39 ISOLATED (SEE ACTUAL BMI) 04/19/2010 Overview: Per Obesity Protocol, #19 SANJAY (obstructive sleep apnea) Last Assessment & Plan: Refuses CPAP documented as of this encounter (statuses as of 08/21/2024) Resolved Problems Problem Noted Date Diagnosed Date Resolved Date COPD, group C, by GOLD 2017 classification 07/18/2022 11/17/2022 Overview: Per COPD GOLD Classification COPD exacerbation 08/07/2019 04/18/2023 COPD exacerbation 03/26/2017 04/18/2023 COPD, severe 03/16/2015 07/21/2022 Overview: Per COPD GOLD Classification Respiratory failure 03/16/2015 04/18/20 23 Hypoxemia 04/18/2023 documented as of this encounter (statuses as of 08/21/2024) Immunizations Name Administration Dates Next Due COVID-19 [...] EDT Office Visit Ophthalmology, [place] [address] David Wang MD [address] [place] [address] [address] Health Maintenance Due Date Last Done Comments [...] the patient have Health Care Power of Geothermal Powerplant Mechanic? Yes, not currently available * Full Code Date Activated Date Inactivated Comments 12/13/2016 12:32 AM 12/14/2016 7:45 PM This order re flects the patients wishes and were consensually agreed upon. Healthcare Agents on File Name Relationship Healthcare Agent Relationsky p Communication [facility] Repr esentative (appointed verbally by patient or by statute hierarchy) Care Teams Pharmacy Clinical Specialist Relationship Specialty Start Date End Date Kumar Anders DO [address] [place] [address] PCP - General 12/14/07 documented as of this encounter
--- OUTSIDE RECORDS SUMMARY | 2024-10-29 00:44 | External Medical Summary | Summary of Care ---
Author Name Unknown Organization [facility] [address] [place] [address] Phone [phone] Care Team Providers Care Media Executive Name Role Phone AndersKaleb garcian Yifan Primary Care Provider [phone] Encounter Details Date Type Department Care Team (Late st Contact Info) Description 09/02/2024 Orders Only Cardiac Studies, [address] [id number] Requisition, External Cardiology [address] [place] [address] Palpitations* Allergies Active Allergy Reactions Criticality Noted Date Comments Penicillins Hives 06/19/2009 Pentobarbital Sodium 04/10/2014 documented as of this encounter (statuses as of 09/02/2024) Medications Medication Sig Dispensed Refills Start Date [...] 5 12/01/2016 Active Respiratory Therapy Supplies KIT [employer] airfit mask w/head gear, supply tubing, filter, [...] as of this encounter (statuses as of 09/02/2024) Active Problems Problem Noted Date Diagnosed Date [...] - LEXY o Class D - Inhaled Qdceigkhxaaohz-NWFV-VCYN Combination Inhaler (Trellegy) Self-Management plan o High [...] on file. [facility]CP [facility] Coronary atherosclerosis of [place] coronary [place] ry 08/28/2011 BMI 35-39 ISOLATED (SEE ACTUAL BMI) 04/19/2010 Overview: Per Obesity Protocol, #19 SANJAY (obstructive sleep apnea) Last Assessment & Plan: Refuses CPAP documented as of this encounter (statuses as of 09/02/2024) Resolved Problems Problem Noted Date Diagnosed Date Resolved Date COPD, group C, by GOLD 2017 classification 07/18/2022 11/17/2022 Overview: Per COPD GOLD Classification COPD exacerbation 08/07/2019 04/18/2023 COPD exacerbation 03/26/2017 04/18/2023 COPD, severe 03/16/2015 07/21/2022 Overview: Per COPD GOLD Classification Respiratory failure 03/16/2015 04/18/20 23 Hypoxemia 04/18/2023 documented as of this encounter (statuses as of 09/02/2024) Immunizations Name Administration Dates Next Due COVID-19 [...] EDT Office Visit Ophthalmology, [place] [address] David Wang MD [place] [address] Scheduled Orders Name Type Priority Associated Diagnoses Orde r Schedule EXTERNAL EKG 8 TO 15 DAYS Holter Routine Palpitations Expected: 09/03/2024 (Approximate), Expires: 09/02/2025 Health Maintenance Due Date Last Done Comments [...] as of this encounter Visit Diagnoses Diagnosis Palpitations- Primary documented in this encounter Advance Directives * [...] the patient have Health Care Power of Deck Worker? Yes, not currently available * Full Code Date Activated Date Inactivated Comments 12/13/2016 12:32 AM 12/14/2016 7:45 PM This order re flects the patients wishes and were consensually agreed upon. Healthcare Agents on File Name Relationship Healthcare Agent Relationshi p Communication [facility] Rep[facility] esentative (appointed verbally by patient or by statute hierarchy) Care Teams Media Executive Relationship Specialty Start Date End Date Kumar Anders DO [address] [place] [address] PCP - General 12/14/07 documented as of this encounter
--- OUTSIDE RECORDS SUMMARY | 2024-10-29 00:44 | External Medical Summary | Summary of Care ---
Author Name Unknown Organization [facility] Address [address] [place] [address] Phone [phone] Care Team Providers Care Wire Winding Machine Tender Name Role Phone Kumar Anders Primary Care Provider [phone] Encounter Details Date Type Department Care Team (Late st Contact Info) Description 07/25/2024 Population Health External Data Unspecified Department Allergies Active Allergy Reactions Criticality Noted Date Comments Penicillins Hives 06/19/2009 Pentobarbital Sodium 04/10/2014 documented as of this encounter (statuses as of 07/29/2024) Medications Medication Sig Dispensed Refills Start Date [...] 5 12/01/2016 Active Respiratory Therapy Supplies [employer] resmed airfit mask w/head gear, supply tubing, [...] as of this encounter (statuses as of 07/29/2024) Active Problems Problem Noted Date Diagnosed Date [...] - LEXY o Class D - Inhaled Zlqprggbxclkei-YNYG-RKGT Combination Inhaler (Trellegy) Self-Management plan o High [...] on file. [facility]CP [facility] Coronary atherosclerosis of [place] coronary [place] ry 08/28/2011 BMI 35-39 ISOLATED (SEE ACTUAL BMI) 04/19/2010 Overview: Per Obesity Protocol, #19 SANJAY (obstructive sleep apnea) Last Assessment & Plan: Refuses CPAP documented as of this encounter (statuses as of 07/29/2024) Resolved Problems Problem Noted Date Diagnosed Date Resolved Date COPD, group C, by GOLD 2017 classification 07/18/2022 11/17/2022 Overview: Per COPD GOLD Classification COPD exacerbation 08/07/2019 04/18/2023 COPD exacerbation 03/26/2017 04/18/2023 COPD, severe 03/16/2015 07/21/2022 Overview: Per COPD GOLD Classification Respiratory failure 03/16/2015 04/18/20 23 Hypoxemia 04/18/2023 documented as of this encounter (statuses as of 07/29/2024) Immunizations Name Administration Dates Next Due COVID-19 [...] EDT Office Visit Ophthalmology, [place] [address] David Wang MD [address] [place] [address] [address] Health Maintenance Due Date Last Done Comments [...] the patient have Health Care Power of Crisis Manager? Yes, not currently available * Full Code Date Activated Date Inactivated Comments 12/13/2016 12:32 AM 12/14/2016 7:45 PM This order re flects the patients wishes and were consensually agreed upon. Healthcare Agents on File Name Relationship Healthcare Agent [facility] p Communication [facility] Repr esentative (appointed verbally by patient or by statute hierarchy) Care Teams Wire Winding Machine Tender Relationship Specialty Start Date End Date Kumar Anders DO [address] [place] [address] PCP - General 12/14/07 documented as of this encounter
--- OUTSIDE RECORDS SUMMARY | 2024-10-29 00:44 | External Medical Summary | Summary of Care ---
Author Name Unknown Organization [facility] Address [address] [place] [address] Phone [phone] Care Team Providers Care Injection Molding Machine Operator Name Role Phone AndersKaleb garcian Yifan Primary Care Provider [phone] Encounter Details Date Type Department Care Team (Late st Contact Info) Description 08/01/2024 11:45 AM EDT Scheduled Telephone Care Coordination and Integration [address], [place] [id number] Stephenie Witt [facility] Chief Nursing Executive [address] [place] [address] Allergies Active Allergy Reactions Criticality Noted Date Comments Penicillins Hives 06/19/2009 Pentobarbital Sodium 04/10/2014 documented as of this encounter (statuses as of 08/01/2024) Medications Medication Sig Dispensed Refills Start Date [...] 5 12/01/2016 Active Respiratory Therapy Supplies [employer] resmed airfit mask w/head gear, supply tubing, [...] BEFORE BEDTIME. 30 mL 5 04/30/2024 Active [employer] Ultra In Vitro Strip TEST SUGAR TWICE DAILY 05/15/2024 Active documented as of this encounter (statuses as of 08/01/2024) Active Problems Problem Noted Date Diagnosed Date [...] - LEXY o Class D - Inhaled Ajbtjqybpxabdd-MMFA-LTIF Combination Inhaler (Trellegy) Self-Management plan o High [...] on file. [facility] Coronary atherosclerosis of [place] coronary [place] ry 08/28/2011 BMI 35-39 ISOLATED (SEE ACTUAL BMI) 04/19/2010 Overview: Per Obesity Protocol, #19 SANJAY (obstructive sleep apnea) Last Assessment & Plan: Refuses CPAP documented as of this encounter (statuses as of 08/01/2024) Resolved Problems Problem Noted Date Diagnosed Date Resolved Date COPD, group C, by GOLD 2017 classification 07/18/2022 11/17/2022 Overview: Per COPD GOLD Classification COPD exacerbation 08/07/2019 04/18/2023 COPD exacerbation 03/26/2017 04/18/2023 COPD, severe 03/16/2015 07/21/2022 Overview: Per COPD GOLD Classification Respiratory failure 03/16/2015 04/18/20 23 Hypoxemia 04/18/2023 documented as of this encounter (statuses as of 08/01/2024) Immunizations Name Administration Dates Next Due COVID-19 [...] as of this encounter Progress Notes * [facility]ie [facility] - 08/01/2024 11:42 AM EDT Telemedicine visit: No [facility] Chief Nursing Executive (VIANEY) documentation: CHW JULITO week 2 per ABILIO Nevarez UTC, [facility] documented in this encounter Plan of Treatment Upcoming Encounters Date Type Department Care Team (Late st Contact Info) Description 06/26/2025 8:15 AM EDT Office Visit Ophthalmology, [place] [address] [id number] David Wang MD [address] [address] Health Maintenance Due Date Last Done Comments Diabetic Foot Exam 1963 Hepatitis C Screening 1963 Zoster Vaccines (1 of 2) 1997 Pneumococcal Vaccine: 65+ Years (2 of 2 - PCV) 08/05/2014 08/05/2013 *ADVANCE DIRECTIVE NOT ON FILE 03/19/2015 Albumin/Creatinine Ratio 01/13/2016 01/12/2015 HbA1c 01/07/2020 07/09/2019, 02/2019, 01/12/2015, Additional history exists DISCUSS TOBACCO CESSATION (REFER TO SMARTSET #8593) 05/24/2024 05/24/2023, 04/22/2022, 09/24/2018, Additional history exists [...] the patient have Health Care Power of Crime Specialist? Yes, not currently available * Full Code Date Activated Date Inactivated Comments 12/13/2016 12:32 AM 12/14/2016 7:45 PM This order re flects the patients wishes and were consensually agreed upon. Healthcare Agents on File Name Relationship Healthcare Agent Relationshi p Communication Cheli [place] Adult Child Health Care Repr esentative (appointed verbally by patient or by statute hierarchy) Care Teams Injection Molding Machine Operator Relationship Specialty Start Date End Date Kumar Anders DO [address], [place] [id number] PCP - General 12/14/07 documented as of this encounter
--- OUTSIDE RECORDS SUMMARY | 2024-10-29 00:44 | External Medical Summary | Summary of Care ---
Author Name Unknown Organization [facility] Address [address] [place] [address] Phone [phone] Care Team Providers Care Infrastructure Engineer Name Role Phone Kaleb Andersn Yifan Primary Care Provider [phone] Reason for Visit * Reason Comments eRx-Medication Refill Encounter Details Date Type Department Care Team (Late st Contact Info) Description 10/07/2024 Refill [facility], [facility] [address] [facility] [place] [address] Marimar Hudson CRNP [address] [facility] [place] [address] Allergies Active Allergy Reactions Criticality Noted Date Comments Penicillins Hives 06/19/2009 Pentobarbital Sodium 04/10/2014 documented as of this encounter (statuses as of 10/07/2024) Medications ASPIRIN 81 MG PO TABS Active [...] BEFORE BEDTIME. 30 mL 5 4 Active [email or web address] Ultra In Vitro Strip TEST SUGAR TWICE DAILY 4 Active documented as of this encounter (statuses as of 10/07/2024) Active Problems Problem Noted Date Diagnosed Date [...] - LEXY o Class D - Inhaled Hzxxvzvhrkkbvb-HZCY-NPQQ Combination Inhaler (Edllegy) Self-Management plan o High [...] on file. [facility] Coronary atherosclerosis of [place] coronary [place] ry 08/28/2011 BMI 35-39 ISOLATED (SEE ACTUAL BMI) 04/19/2010 Overview (04/19/2010): Per Obesity Protocol, #19 SANJAY (obstructive sleep apnea) Assessment & Plan (04/18/2023 2:15 PM EDT): Refuses CPAP documented as of this encounter (statuses as of 10/07/2024) Resolved Problems Problem Noted Date Diagnosed Date Resolved Date COPD, group C, by GOLD 2017 classification 07/18/2022 11/17/2022 Overview: Per COPD GOLD Classification COPD exacerbation 08/07/2019 04/18/2023 COPD exacerbation 03/26/2017 04/18/2023 COPD, severe 03/16/2015 07/21/2022 Overview: Per COPD GOLD Classification Respiratory failure 03/16/2015 04/18/20 23 Hypoxemia 04/18/2023 documented as of this encounter (statuses as of 10/07/2024) Immunizations Name Administration Dates Next Due COVID-19 [...] No 07/12/2024 Does the household have a [facility] source of income? (Household - for ages [...] of Assessment Author Yes 08/07/2019 11:59 PM EDT Jose Smiley RN documented as of this encounter Mental Status * Because of a physical, mental, or emotional condition, do you have serious difficulty concentrating, remembering, or making decisions? (5 years old or older) Answer Entry Date Author No 08/07/2019 11:59 PM AYET Jose Smiley RN documented in this encounter Miscellaneous Notes * Telephone Encounter - Ramesh Veronica LPN - 10/07/2024 12:54 PM EST Refused Prescriptions: Disp Refills Gabapentin 400 MG Oral Capsule (Neurontin) 90 Cap*1 Sig: TAKE 1CAPSULE BY MOUTH BEFORE BEDRefused By: RAMESH VERONICA for Refusal: Patient Should Contact Provider First * Telephone Encounter - Junie Heath RPh - 10/07/2024 10:24 AM EST Pending Prescriptions: Disp Refills Gabapentin 400 MG Oral Capsule [Pharmacy M*90 Cap*1 Sig: TAKE 1CAPSULE BY MOUTH BEFORE BED documented in this encounter Plan of Treatment Upcoming Encounters Date Type Department Care Team (Late st [facility]) Description 06/26/2025 8:15 AM EDT Office Visit Ophthalmology, [employer] [address] [phone] David Wang MD [address] [address] Health Maintenance Due Date Last Done Comments Diabetic Foot Exam 1963 Hepatitis C Screening 1965 Zoster Vaccines (1 of 2) 1997 Pneumococcal Vaccine: 65+ Years (2 of 2 - PCV) 08/05/2014 08/05/2013 *ADVANCE DIRECTIVE NOT ON FILE 03/19/2015 Albumin/Creatinine Ratio 01/13/2016 01/12/2015 HbA1c 01/07/2020 07/09/2019, 02/2019, 01/12/2015, Additional history exists DISCUSS TOBACCO CESSATION (REFER TO SMARTSET #4453) 05/24/2024 05/24/2023, 04/22/2022, 09/24/2018, Additional history exists [...] the patient have Health Care Power of Shredder/Granulator Operator? Yes, not currently available * Full Code Date Activated Date Inactivated Comments 12/13/2016 12:32 AM 12/14/2016 7:45 PM This order re flects the patients wishes and were consensually agreed upon. Healthcare Agents on File Name Relationship Healthcare Agent Relationshi p Communication Cheli [place] Adult Child Health Care Repr esentative (appointed verbally by patient or by statute hierarchy) Care Teams Infrastructure Engineer Relationship Specialty Start Date End Date Kumar Anders DO [address] [place] [id number] PCP - General 12/14/07 documented as of this encounter
--- OUTSIDE RECORDS SUMMARY | 2024-10-29 00:45 | External Medical Summary | Summary of Care ---
Author Name Unknown Organization [facility] Address [address] [place] [address] Phone [phone] Care Team Providers Care Therapy Manager Name Role Phone Kumar Anders Primary Care Provider [phone] Encounter Details Date Type Department Care Team (Late st Contact Info) Description 07/24/2024 Population Health External Data Unspecified Department Allergies Active Allergy Reactions Criticality Noted Date Comments Penicillins Hives 06/19/2009 Pentobarbital Sodium 04/10/2014 documented as of this encounter (statuses as of 07/24/2024) Medications Medication Sig Dispensed Refills Start Date [...] 5 12/01/2016 Active Respiratory Therapy Supplies [employer] resmed airfit mask w/head gear, supply tubing, [...] as of this encounter (statuses as of 07/24/2024) Active Problems Problem Noted Date Diagnosed Date [...] - LEXY o Class D - Inhaled Stliccadhfvkcf-RITV-RIDI Combination Inhaler (Trellegy) Self-Management plan o High [...] on file. [facility] Coronary atherosclerosis of [place] coronary [place] ry 08/28/2011 BMI 35-39 ISOLATED (SEE ACTUAL BMI) 04/19/2010 Overview: Per Obesity Protocol, #19 SANJAY (obstructive sleep apnea) Last Assessment & Plan: Refuses CPAP documented as of this encounter (statuses as of 07/24/2024) Resolved Problems Problem Noted Date Diagnosed Date Resolved Date COPD, group C, by GOLD 2017 classification 07/18/2022 11/17/2022 Overview: Per COPD GOLD Classification COPD exacerbation 08/07/2019 04/18/2023 COPD exacerbation 03/26/2017 04/18/2023 COPD, severe 03/16/2015 07/21/2022 Overview: Per COPD GOLD Classification Respiratory failure 03/16/2015 04/18/20 23 Hypoxemia 04/18/2023 documented as of this encounter (statuses as of 07/24/2024) Immunizations Name Administration Dates Next Due COVID-19 [...] EDT Office Visit Ophthalmology, [place] [address] [address] David Wang MD [address] [address] Health Maintenance Due Date Last Done Comments [...] the patient have Health Care Power of Non Destructive Tester? Yes, not currently available * Full Code Date Activated Date Inactivated Comments 12/13/2016 12:32 AM 12/14/2016 7:45 PM This order re flects the patients wishes and were consensually agreed upon. Healthcare Agents on File Name Relationship Healthcare Agent [facility] p Communication [facility] Repr esentative (appointed verbally by patient or by statute hierarchy) Care Teams Therapy Manager Relationship Specialty Start Date End Date Kumar Anders DO [address] [place] [address] PCP - General 12/14/07 documented as of this encounter
[2024-10-29 01:42] LABS: ANTI-Xa, UFH(UnfractionatedHep 0.73 IU/ml (0.3-0.7)
[2024-10-29 07:55] LABS: Basophils # (auto) 0.05 K/uL (0.00-0.20); Basophils % (auto) 0.6 %; Eosinophils # (auto) 0.08 K/uL (0.00-0.50); Hematocrit (blood only) 38.4 % (42.0-52.0); Hemoglobin 12.7 g/dl (14.0-18.0); Immature Granulocytes # (auto) 0.02 K/uL (0.01-0.20); Immature Granulocytes % (auto) 0.3 %; Lymphocytes # (auto) 1.44 K/uL (1.20-3.40); Lymphocytes % (auto) 18.7 %; Mean Corpuscular Hemoglobin 29.1 pg (25.0-34.0); Mean Corpuscular Hgb Conc 33.1 g/dL (32.0-36.0); Mean Corpuscular Volume 87.9 fL (80.0-100.0); Mean Platelet Volume 10.4 fL (9.4-12.4); Monocytes # (auto) 0.46 K/uL (0.11-0.59); Neutrophils # (auto) 5.66 K/uL (1.40-6.50); Neutrophils % (auto) 73.4 %; Platelet Count 156 K/uL (130-400); RDW Coefficient of Variation 12.9 % (11.5-14.5); RDW Standard Deviation 41.3 fL (36.4-46.3); Red Blood Count 4.37 M/uL (4.70-6.10); White Blood Count 7.71 K/ul (4.8-10.8)
[2024-10-29 08:02] LABS: Albumin Globulin Ratio 1.2 (0.9-2); Albumin Level 3.4 gm/dl (3.4-5.0); BUN Creatinine Ratio 15.1 (10-20); Bilirubin,Total 0.6 mg/dl (0.2-1.0); Calcium 8.6 mg/dl (8.6-10.3); Chol HDL Ratio 2.9 (0-5); Globulin 2.9 gm/dl (2.5-4.0); Magnesium 1.7 mg/dl (1.7-2.4); Potassium 3.7 mmol/L (3.5-5.1); Total Protein 6.3 gm/dl (6.0-8.3)
[2024-10-29] MEDS: ATORVASTATIN 40 MG TAB PO SCH (08:37)
[2024-10-29] MEDS: ASPIRIN 81 MG ECTAB PO SCH (08:37)
[2024-10-29] MEDS: ROFLUMILAST 500 MCG TAB PO SCH (08:38)
[2024-10-29] MEDS: lisinopril 5 MG TAB PO SCH (08:38)
[2024-10-29] MEDS: PANTOprazole 40 MG TAB PO SCH (08:38)
[2024-10-29] MEDS: SERTRALINE HCL 50 MG TABLET PO SCH (08:38)
[2024-10-29] MEDS: FLUTICASONE FUROATE 100MCG 14 PUFFS/INHALER INH SCH (08:39)
[2024-10-29] MEDS: UMECLIDINIUM/VILANTEROL 62.5/25MCG 7 PUFFS/INHALER INH SCH (08:40)
[2024-10-29] MEDS ORDERED: NON-FORMULARY MEDICATION (Fluticasone-Umeclidin-Vilanter [Trelegy Ellipta] 100-62.5-25 mcg INH SCH (09:00)
[2024-10-29] MEDS ORDERED: NON-FORMULARY MEDICATION (Tiotropium Bromide [Spiriva Respimat] 2.5 mcg/actuation Mist) INH SCH (09:00)
--- NOTE | 2024-10-29 09:09 | Cardiology Consultation ---
Date of Consultation October 29, 2024 Assessment & Plan (1) Chest pain: (2) NSTEMI (non-ST elevated myocardial infarction): (3) ASCVD (arteriosclerotic cardiovascular disease): (4) HTN, goal below 130/80: (5) Dyslipidemia, goal LDL below 70: (6) COPD (chronic obstructive pulmonary disease): Plan Complex 79-year-old male presenting with chest discomfort/indigestion, feeling unwell. Symptoms reminiscent of that which led to prior percutaneous coronary intervention. EKG without acute ST segment change. High-sensitivity troponin elevated. Echocardiography with new inferior and posterior wall motion abnormality. Non-ST segment elevation myocardial infarction. The risks (bleeding, infection, radiation exposure, renal dysfunction, atheroembolism, allergic reactions including anaphylaxis, perforation of the heart or great vessels, arrhythmias, conduction disturbances, local vascular complications, cerebrovascular accident, MD, or ) as well as the benefits of cardiac catheterization were discussed. After discussion with family via telephone, patient requests proceeding with cardiac catheterization. Arrangements will be made with Interventional Cardiology for cardiac catheterization today. Continue IV heparin, aspirin, moderate intensity statin, and ELADIO inhibition, adding low dose beta-natan therapy as pulmonary status permits. Supervising Physician Co-Signing Physician Notes Patient was seen and personally examined. Full assessment and plan as outlined by advanced provider above. Care and management discussed personally and endorsed. 79-year-old male with known prior coronary disease with past coronary inventions in the remote past of the left anterior descending and left anterior sending diagonal. Patient presents now with signs and symptoms of crescendo angina with echocardiographic and enzyme criteria for non-ST segment elevation myocardial infarction. Patient referred today for coronary angiography which demonstrates patent left anterior descending stent, occlusion of prior LAD diagonal. The right coronary artery is a large-caliber vessel with tortuosity and calcification with complex mid vessel lesion compromising large area distribution. Intervention warranted however felt to be high risk for this facility. Will make arrangements for transfer to tertiary center. Patient agreeable Continue IV heparin History of Present Illness Reason for Consultation: NSTEMI Requesting Physician: [facility] Hospitalist Service, Violeta Benavides PA-C Attending Physician: [facility] Hospitalist Service, Dr. Danielito Arauz MD History of Present Illness Adam Hayes is a 79-year-old who presented to [facility] on October 28, 2024 with left sided chest discomfort. Patient states "I was out running around with my daughter. I was not feeling good. I thought I had indigestion." Patient describes left sided chest discomfort, indigestion, that has been occurring off and on for the past three days. Discomfort is reminiscent of that previously associated leading to remote percutaneous intervention. IV heparin initiated in ED. Patient NPO, chest pain free since admission. Data: - EKG on presentation revealed sinus tachycardia at 111 bpm with premature atrial complexes with aberrant conduction, left axis deviation, right bundle branch block; no acute ischemic change. - High-sensitivity troponin was elevated - 542.5 -> 584.1-> 1007.7-> 1271.7 pg/mL. - Resting echocardiography with new wall motion abnormality. - Chest x-ray without acute process. - Creatinine 0.73 mg/dL Past Medical and Surgical History Coronary artery disease Status post PCI of the first and second diagonal branches with bare metal stents in 2005 Status post PCI with drug-eluting stents to the LAD in 2007 Severe COPD Chronic respiratory failure, chronically prescribed supplemental oxygen (noncompliant) Obstructive sleep apnea Chronic tobacco use Hypertension Diastolic dysfunction Right bundle branch block Dyslipidemia Type 2 diabetes mellitus with neuropathy GERD Nephrolithiasis Cholecystectomy Ventral hernia repair Family History: Father with an MD at 55. Mother with an MD at 82. 15 siblings, multiple siblings with CAD. Social History: Smoker since the age of 11, currently 1 pack/day. Minimal alcohol use since 1987. Regular marijuana user. Single. Retired. Allergies Allergy/AdvReac Type Severity Reaction Status Date / Time No Known Allergies Allergy Verified 10/29/24 08:39 Home Medications Medication Instructions Recorded Confirmed Type albuterol sulfate 90 mcg/actuation 2 puff inhalation Q4H PRN 07/21/24 10/28/24 History aerosol inhaler cough,sob,wheezing aspirin 81 mg tablet,delayed 81 mg PO DAILY 07/21/24 10/28/24 History release atorvastatin 40 mg tablet 40 mg PO DAILY 07/21/24 10/28/24 History fluticasone fur. 100 mcg-umeclid 1 inh inhalation QAM 07/21/24 10/28/24 History 62.5 mcg-vilant 25 mcg inhalat.powder (Trelegy Ellipta) lisinopril 5 mg tablet 5 mg PO DAILY 07/21/24 10/28/24 History metformin 500 mg tablet 500 mg PO QAM 07/21/24 10/28/24 History nitroglycerin 0.4 mg sublingual 0.4 mg sublingual DIRECTED PRN 07/21/24 10/28/24 History tablet Chest Pain tiotropium bromide 2.5 2 puff inhalation DAILY 07/21/24 10/28/24 History mcg/actuation mist for inhalation (Spiriva Respimat) albuterol sulfate 2.5 mg/3 mL 2.5 mg (3 mL) inhalation Q4H PRN 07/23/24 10/28/24 Rx (0.083 %) solution for nebulization sob #360 mL dexlansoprazole 60 mg 60 mg PO DAILY 10/28/24 10/28/24 History capsule,biphase delayed release (Dexilant) roflumilast 500 mcg tablet 500 mcg PO DAILY 10/28/24 10/28/24 History (Daliresp) sertraline 25 mg tablet 25 mg PO DAILY 10/28/24 10/28/24 History sodium chloride 5 % eye drops 1 drp OPR QID 10/28/24 10/28/24 History torsemide 20 mg tablet 40 mg PO BID 10/28/24 10/28/24 History Patient History Medical History Calculus of kidney Obesity (BMI 30.0-34.9) SANJAY (obstructive sleep apnea) Marijuana use Tobacco abuse Chronic hypoxic respiratory failure COPD (chronic obstructive pulmonary disease) T2DM (type 2 diabetes mellitus) CAD (coronary artery disease) HLD (hyperlipidemia) HTN (hypertension) Surgical History Hx of percutaneous left heart catheterization and 2 stents in 2007 LAD Hx laparoscopic cholecystectomy Hx of right heart catheterization 2 stents in 2005 1st and 2nd diagonal History of nasal surgery Hx of cataract extraction Hx of vasectomy Hx of tonsillectomy Family History Mother Osteoarthritis Coronary heart disease Hypertension Social History Smoking Status: Current every day smoker Tobacco Type: Cigarettes Second Hand Exposure: Yes; Do You Dip or Chew Tobacco: Yes; Hx Alcohol Use: No Hx Substance Use: No Preferred Language: Mauritanian Communication Ability: Effective Jingle Writer Required: No Beliefs That Will Affect Care: None Current Living Situation: Family Current Living Situation Comment: lives with daughter, Bambi. and granddaughters Feels Safe at Home: Yes Safety Concerns: Feels Safe At This Time Assistive Devices: Cane, Glasses and Oxygen - Continuous Review of Systems Review of Systems: Complete Review of Systems is as stated above, negative, or noncontributory Physical Exam Physical Exam: General: A&Ox3. NAD. Hard of hearing HENT: Normocephalic. Atraumatic. Eyes: PER. Conjunctiva pink, sclera clear. Neck: Bilateral carotid bruits. No JVD. Heart: Regular at 76 bpm. No murmur. No rub. Lungs: Diminished. Decreased. Diffuse expiratory wheezing. Abdomen: +BS. Soft. Nontender. No masses or organomegaly. Extremities: Multiple excoriations on both lower extremities. No peripheral edema. Limited neurological examination is without focal deficits. Pulses: Posterior tibial=2/4. Results & Data Vital Signs (Past 12 Hours) Vital Signs Temp Pulse Pulse Resp BP Pulse Ox O2 Del Method 10/29/24 07:15 36.5 C 82 21 127/88 97 Nasal Cannula 10/29/24 02:22 36.6 C 85 17 102/65 99 Nasal Cannula 10/28/24 23:00 36.5 C 87 21 96/62 L 96 Nasal Cannula 10/28/24 22:24 82 O2 Flow Rate 10/29/24 07:15 3 10/29/24 02:22 3 10/28/24 23:00 3 10/28/24 22:24 Laboratory Results Cardiac Enzymes 10/28/24 10/28/24 10/29/24 Range/Units 16:08 19:25 00:30 AST 20 (13-39) U/L Troponin I High Sens 542.5 H* 584.1 H* 1007.7 H* D (0-20) pg/ml 10/29/24 Range/Units 07:29 AST 19 (13-39) U/L Troponin I High Sens 1271.7 H* D (0-20) pg/ml Coagulation 10/28/24 Range/Units 16:08 PT 10.5 (9.0-12.0) Seconds APTT 27 (21-31) Seconds Lipids 10/29/24 Range/Units 07:29 Triglycerides 79 (0-150) mg/dl Cholesterol 136 (0-200) mg/dl HDL Cholesterol 47 mg/dl Cholesterol/HDL Ratio 2.9 (0-5) CBC 10/28/24 10/29/24 Range/Units 16:08 07:29 WBC 7.47 7.71 (4.8-10.8) K/ul RBC 4.95 4.37 L (4.70-6.10) M/uL Hgb 14.6 12.7 L (14.0-18.0) g/dl Hct 43.2 38.4 L (42.0-52.0) % Plt Count 185 156 (130-400) K/uL Neut # (Auto) 5.13 5.66 (1.40-6.50) K/uL Lymph # (Auto) 1.41 1.44 (1.20-3.40) K/uL Merrick # (Auto) 0.79 H 0.46 (0.11-0.59) K/uL Eos # (Auto) 0.06 0.08 (0.00-0.50) K/uL Baso # (Auto) 0.06 0.05 (0.00-0.20) K/uL Comprehensive Metabolic Panel 10/28/24 10/29/24 Range/Units 16:08 07:29 Sodium 142 142 (136-145) mmol/L Potassium 3.8 3.7 (3.5-5.1) mmol/L Chloride 103 101 (98-107) mmol/L Carbon Dioxide 32 36 H (21-32) mmol/L BUN 9 11 (6-23) mg/dl Creatinine 0.70 0.73 (0.6-1.4) mg/dl Glucose 103 H 126 H (70-99(Fasting)) mg/dl Calcium 9.4 8.6 (8.6-10.3) mg/dl AST 20 19 (13-39) U/L ALT 11 9 (7-52) U/L Alkaline Phosphatase 119 H 96 (34-104) U/L Total Protein 7.7 6.3 (6.0-8.3) gm/dl Albumin 4.2 3.4 (3.4-5.0) gm/dl Intake and Output 10/28/24 10/29/24 10/29/24 22:59 06:59 14:59 Intake Total 243.35 / 243.35 197.683 / 197.683 Output Total 200 / 1200 1000 / 1200 Balance -200 / -956.65 -756.65 / -956.65 197.683 / 197.683 Intake: IV 243.35 / 243.35 197.683 / 197.683 Heparin Sodium/Dextrose 25,000 243.35 / 243.35 197.683 / 197.683 units In 500 ml @ 1,450 UNITS/ HR 29 mls/hr IV .[id number] JENAE Rx #:[id number] Oral 0 / 0 Output: Urine 200 / 1200 1000 / 1200 Other: Other Intake Source NPO Weight 96.2 kg 96.3 kg Weight Measurement Method Built in Bedscale Built in [facility] Diagnostic Findings Telemetry: Sinus with first-degree AV block, occasional ventricular ectopy, heart rates in the 70s to 90s October 29, 2024 TTE ([facility], Dr. Collazo): Normal size left ventricle. Moderate concentric LVH. Moderate size inferior and posterior wall motion abnormality with hypokinesis of the segments. Left ventricular ejection fraction 55 to 60%. Grade 1 diastolic dysfunction. Moderate aortic valve sclerosis without significant stenosis. Moderate RV hypertrophy. In comparison to prior study dated July 21, 2024, wall motion abnormalities are now present.
[2024-10-29 09:12] LABS: Estimated Average Glucose 143 mg/dl; Hemoglobin A1C 6.6 % (4.5-5.6)
[2024-10-29] MEDS: fentaNYL citrate PF 100 MCG/2 ML VIAL ONE (10:26)
[2024-10-29] MEDS: HEPARIN (PORCINE) 1000 UNIT/ML 10 ML (CATH LAB USE ONLY) ONE (10:27)
[2024-10-29] MEDS: MIDAZOLAM HCL 1 MG/ML 2ML VIAL ONE (10:28)
[2024-10-29] MEDS: niCARdipine 2,000 MCG/20 ML SYR ONE (10:28)
[2024-10-29] MEDS: OPTIRAY 350 ONE (10:29)
[2024-10-29] MEDS: NITROGLYCERIN/D5W 100MCG/ML 20ML SYR ONE (10:30)
--- NOTE | 2024-10-29 10:36 | Pre Anesthesia Assessment ---
Date of Service October 29, 2024 Pre Sedation Assessment Vital Signs Temp Pulse Pulse Pulse Resp BP BP 10/29/24 10:06 81 10/29/24 08:00 10/29/24 07:15 36.5 C 82 21 127/88 10/29/24 02:22 36.6 C 85 17 102/65 10/28/24 23:00 36.5 C 87 21 96/62 L 10/28/24 22:24 82 10/28/24 20:00 10/28/24 19:45 36.8 C 97 H 22 119/78 10/28/24 19:07 100 H 10/28/24 17:51 98 H 18 122/74 10/28/24 17:30 100 H 18 125/89 10/28/24 17:25 107 H 10/28/24 16:34 10/28/24 16:34 103 H 10/28/24 16:34 10/28/24 15:55 36.5 C 112 H 19 146/99 H Pulse Ox O2 Del Method O2 Flow Rate 10/29/24 10:06 10/29/24 08:00 Nasal Cannula 3 10/29/24 07:15 97 Nasal Cannula 3 10/29/24 02:22 99 Nasal Cannula 3 10/28/24 23:00 96 Nasal Cannula 3 10/28/24 22:24 10/28/24 20:00 Nasal Cannula 3 10/28/24 19:45 92 Room Air 3 10/28/24 19:07 10/28/24 17:51 98 Nasal Cannula 3 10/28/24 17:30 97 Nasal Cannula 3 10/28/24 17:25 10/28/24 16:34 Nasal Cannula 3 10/28/24 16:34 99 Nasal Cannula 3 10/28/24 16:34 Room Air, Nasal Cannula 0 10/28/24 15:55 94 Room Air Cardiovascular RRR, no murmur, no edema Respiratory normal respiratory effort, lungs clear to auscultation Additional Comments: Requires oxygen supplementation Pre-Sedation Airway Assessment Smoking Status: Current every day smoker Hx Sleep Apnea: No Short, Thick Neck: No Thyromental Distance: > or= 3.5 Finger Breadths Oral Cavity: + WNL Mallampati Class: IV ASA: ASA4 NPO Status Date of Last Intake of Fluids: 10/29/24 Time of Last Intake of Fluids: 08:00 Last Oral Intake of Fluids Comment: sip with meds Date of Last Intake of Solid Food: 10/28/24 Notes The planned sedation has been discussed with the patient. Informed Consent was obtained. I have identified the patient, determined the appropriateness of sedation and have assessed the patient immediately prior to the procedure. All medicine(s) and interventions are by my order.
--- NOTE | 2024-10-29 10:38 | Post Anesthesia Assessment ---
Date of Service October 29, 2024 Post Sedation Assessment Vital Signs Temp Pulse Pulse Pulse Resp BP BP 10/29/24 10:06 81 10/29/24 08:00 10/29/24 07:15 36.5 C 82 21 127/88 10/29/24 02:22 36.6 C 85 17 102/65 10/28/24 23:00 36.5 C 87 21 96/62 L 10/28/24 22:24 82 10/28/24 20:00 10/28/24 19:45 36.8 C 97 H 22 119/78 10/28/24 19:07 100 H 10/28/24 17:51 98 H 18 122/74 10/28/24 17:30 100 H 18 125/89 10/28/24 17:25 107 H 10/28/24 16:34 10/28/24 16:34 103 H 10/28/24 16:34 10/28/24 15:55 36.5 C 112 H 19 146/99 H Pulse Ox O2 Del Method O2 Flow Rate 10/29/24 10:06 10/29/24 08:00 Nasal Cannula 3 10/29/24 07:15 97 Nasal Cannula 3 10/29/24 02:22 99 Nasal Cannula 3 10/28/24 23:00 96 Nasal Cannula 3 10/28/24 22:24 10/28/24 20:00 Nasal Cannula 3 10/28/24 19:45 92 Room Air 3 10/28/24 19:07 10/28/24 17:51 98 Nasal Cannula 3 10/28/24 17:30 97 Nasal Cannula 3 10/28/24 17:25 10/28/24 16:34 Nasal Cannula 3 10/28/24 16:34 99 Nasal Cannula 3 10/28/24 16:34 Room Air, Nasal Cannula 0 10/28/24 15:55 94 Room Air Recovery Score Activity: Moves 4 extremities Respiration: Deep Breath/Cough Circulation: +/-20% PreAnes Value Consciousness: Fully Awake Oxygen Saturation: > 92% On Room Air Discharge Sedation Level of Care: Fast Track Phase II Post Sedation Plan On clinical assessment, the patient appears to have tolerated the sedation without complications. Patient is recovering as anticipated. Patient will continue to be monitored by nursing and may be discharged when sedation discharge criteria are met per below protocol. Upon Completions of procedure up to 15 minutes continue every 5 minute vital signs and the P.A.R. score; then discharge to a Phase I or Fast Track to Phase II per the following guidelines: * Discharge Patient to appropriate Phase II area if PAR is 8 or greater or return to pre- procedure baseline. The post - procedure orders will be as directed. * If PAR score is less than 8 or not return to pre-procedure baseline then patient will follow Phase I monitoring till PAR is reached for Phase II. The Phase I may be done in procedure room or may call to secure a Phase I area. * If naloxone or flumazenil are used for reversal, hold in Phase I for continued monitoring from when last reversal dose was given for a minimum of 60 minutes or longer pending the nurse and/or physician discretion of patient condition before discharge to Phase II. Please call the Sedation Physician to re-evaluate and complete post-note for discharge to Phase II area. Do NOT discharge from procedure sedation or Phase 1 until post- sedation evaluation note is complete by procedure /sedation MD Sedation Discharge Instructions to be given to the patient at discharge to home. [facility] Procedure Codes (Charges) Indication for Procedure Indication for procedure: Non-ST elevation MO History of CAD/stents Sedation/Anesthesia Procedure 1: Sedation/Anesthesia: 21332 Mod Sedation by the same physician;Init15 Min Child Age 5 & Up (Initial 15 minutes, start time 1008) Total Sedation Time (minutes): 19 Procedure 2: Sedation/Anesthesia: 61073 Mod Sedation by the same physician; Ea [id number] Minutes (Additional 4 minutes, end time 1027) Total Sedation Time (minutes): 19
[2024-10-29 10:40] LABS: ANTI-Xa, UFH(UnfractionatedHep 1.03 IU/ml (0.3-0.7)
--- NOTE | 2024-10-29 11:02 | Discharge Summary ---
Date of Service October 29, 2024 Admission HPI Per Admitting Provider This is a 79 yr old M who has a significant PMH of Chronic Hypoxic respiratory failure on chronic oxygen therapy 3L, SANJAY, COPD, Right heart failure, CAD with hx of angioplasty and total of 4 stents, HTN, HLD, Chronic RBBB, tobacco abuse, marijuana abuse, hx of cva who presents to ED 2/2 Chest pain x 2-3 days. He describes it as a, "pain." He is unable to describe it. His pain was located on the left side of his chest. He reports his Right arm feeling funny when the pain comes on. When the pain started he was sitting smoking a cigarette drinking a black coffee. He denies any dizziness, lightheaded, diaphoresis, palpitations, nausea or vomiting. Currently he denies any chest pain. He does have chronic SOB 2/2 smoking. He has a chronic cough. He feels his SOB is unchanged. He denies any recent illness, f/c/s or change in bowel or urinary habits. In ED pt was hypertensive. His ECG was w/o ischemic change. His initial trop was 542.5 pg/ml. He continues to smoke 1ppd. He denies any alcohol use. He is a chronic marijuana user. Admission Exam Per Admitting Provider General: Elderly man in no distress Eyes: EOMI, not pale ENMT: External ear and nose normal, oropharynx normal Respiratory: Normal respiratory effort, no respiratory distress, lungs clear to auscultation, no crackles and no wheezes Cardiovascular: RRR s1 s2 Gastrointestinal (Abdomen): Abdomen is not distended, soft, non-tender to palpation, no guarding, no palpable hepatosplenomegaly, normal bowel sounds Musculoskeletal: No pedal edema Neurologic: No focal weakness, sensation grossly intact Psychiatric: Euthymic affect Principal Diagnosis NSTEMI Discharge Exam Constitutional: WD/WN, vitals as above, NAD, sitting up in bed, pleasant, conversing easily Respiratory: normal respiratory effort, lungs clear to auscultation, no wheeze, rales, rhonchi. Normal insp/exp effort, no accessory muscle use Cardiovascular: RRR, no murmur, no edema Vessels: no JVD or carotid bruit Chest: normal inspection of chest Abdomen: normal bowel sounds, soft, nontender, no hepatosplenomegaly Musculoskeletal: no cyanosis or clubbing, extremities motor strength 5/5 Skin: no rashes, warm and dry normal turgor Neurologic: PERRL, EOMI, accommodation nl, no face palsy, no dysarthria CN's II- XI intact bilaterally and moves all extremities Psychiatric: A+Ox3, euthymic affect Discharge Data Allergies Allergy/AdvReac Type Severity Reaction Status Date / Time No Known Allergies Allergy Verified 10/29/24 08:39 Consultations 10/28/24 17:13 ED Decision to Admit Stat 10/28/24 19:00 Consult Cardiology Routine Procedures Performed Operation Date: 10/29/24 09:00 Actual Procedures p Cineradiography w/Routine Exam - Jeffrey Doherty MD, PhD Ordered Studies 10/29/24 08:37 CL Cath Imgs for PACS use only Routine Hospital Course (1) NSTEMI (non-ST elevated myocardial infarction): (2) Chronic hypoxic respiratory failure: (3) CAD (coronary artery disease): (4) T2DM (type 2 diabetes mellitus): (5) COPD (chronic obstructive pulmonary disease): (6) HTN (hypertension): (7) HLD (hyperlipidemia): (8) Marijuana use: (9) Tobacco abuse: Plan This is a 79 yr old M who has a significant PMH of Chronic Hypoxic respiratory failure on chronic oxygen therapy 3L, SANJAY, COPD, Right heart failure, CAD with hx of angioplasty and total of 4 stents, HTN, HLD, Chronic RBBB, tobacco abuse, marijuana abuse, hx of cva who presents to ED 2/2 Chest pain x 2-3 days. High sensitive troponin was elevated to 584 which gradually up trended to 1271. EKG showed normal sinus rhythm; nonspecific ST and T wave changes. Patient was admitted to medical floor; patient was started on IV heparin; con tinued on aspirin, statin and lisinopril. Patient underwent cardiac cath on 10/29/2024; showed patent left anterior descending stent, occlusion of prior LAD diagonal. he right coronary artery is a large-caliber vessel with tortuosity and calcification with complex mid vessel lesion compromising large area distribution. Intervention warranted however felt to be high risk for this facility. Patient agreeable for transfer. Cardiology arranged for transfer. IV heparin to be continued in route. Please note the above document was generated using voice recognition software. It may contain grammatical, syntax or spelling errors. Any formal questions or concerns about the content, text or information contained within the body of this dictation should be directly addressed to the provider for clarification Total Time Total Time Spent Total Time Spent (In Minutes): 35 Total Time Includes: Examination of the Patient, Discharge Planning, Medication Reconciliation, Communication With Other Providers and Other Discharge Plan Discharge Items Patient Disposition: Transfer Acute Care Hospital Reason For Visit: NSTEMI Activity: Resume your previous activity Non-emergency contact: Primary Care Provider Call non-emergency contact if: you have any medication questions and your symptoms worsen Follow-up/Referrals: Kumar Anders, [Primary Care Provider] - Diet: Regular Addtl Attending Provider Instructions: Please follow-up with your primary care doctor after discharge from the facility Addtl Cattle Feeder Provider Instructions: Date of Service: October 29, 2024 Current Inpatient Medications Acetaminophen (Acetaminophen 325 Mg Tab) 650 mg PO Q4H PRN PRN Reason: Pain or Fever Stop: 11/27/24 18:59 Albuterol (Albut/Ipratrop 3mg/0.5mg Neb 3 Ml Vial) 3 ml NEB Q6R PRN; Protocol PRN Reason: sob/wheezing Stop: 11/27/24 18:59 Aspirin (Aspirin 81 Mg Ectab) 81 mg PO DAILY JENAE Stop: 11/28/24 08:59 Last Admin: 10/29/24 08:37 Dose: 81 mg Atorvastatin Calcium (Atorvastatin 40 Mg Tab) 40 mg PO DAILY JENAE Stop: 11/28/24 08:59 Last Admin: 10/29/24 08:37 Dose: 40 mg Dextrose (Dextrose 50% 50 Ml Syringe) 25 - 50 ml IV UD PRN; Protocol PRN Reason: Hypoglycemia Protocol Stop: 11/27/24 18:59 Famotidine (Famotidine 20 Mg Tab) 20 mg PO DAILY PRN PRN Reason: Heartburn Stop: 11/27/24 18:59 Fluticasone Furoate (Fluticasone Furoate 100mcg 14 Puffs/Inhaler) 1 puffs INH DAILY JENAE Stop: 11/28/24 08:59 Last Admin: 10/29/24 08:39 Dose: 1 puffs Glucagon (Glucagon For Inj 1 Mg Vial) 1 mg SQ UD PRN; Protocol PRN Reason: Hypoglycemia Protocol Stop: 11/27/24 18:59 Glucose (Glucose 40% Gel 15 Gm Tube) 15 - 30 gm PO UD PRN; Protocol PRN Reason: Hypoglycemia Protocol Stop: 11/27/24 18:59 Glucose (Glucose 10 Tab/Tube) 4 - 8 tab PO UD PRN; Protocol PRN Reason: Hypoglycemia Protocol Stop: 11/27/24 18:59 Heparin Sodium/Dextrose (Heparin Sodium/Dextrose) 25,000 units in 500 mls @ 29 mls/hr IV .[id number] [facility]; Protocol Stop: 11/27/24 17:29 Last Admin: 10/29/24 08:37 Dose: 1,450 units/hr, 29 mls/hr Insulin Aspart (Insulin Aspart Per Unit Charge) 0 units SC ACHS [facility] Stop: 11/27/24 20:59 Last Admin: 10/29/24 08:37 Dose: Not Given Lisinopril (Lisinopril 5 Mg Tab) 5 mg PO DAILY [facility] Stop: 11/28/24 08:59 Last Admin: 10/29/24 08:38 Dose: 5 mg Melatonin (Melatonin 3 Mg Tab) 6 mg PO HS PRN PRN Reason: Sleep Stop: 11/27/24 20:59 Last Admin: 10/28/24 21:25 Dose: 6 mg Miscellaneous (Carbohydrates For Hypoglycemia ) 15 - 30 gm PO UD PRN PRN Reason: Hypoglycemia Protocol Stop: 11/27/24 18:59 Ondansetron HCl (Ondansetron Inj 2 Mg/Ml 2 Ml Vial) 4 mg IV Q6H PRN PRN Reason: Nausea Stop: 11/27/24 18:59 Pantoprazole Sodium (Pantoprazole 40 Mg Tab) 40 mg PO DAILY [facility] Stop: 11/28/24 08:59 Last Admin: 10/29/24 08:38 Dose: 40 mg Roflumilast (Roflumilast 500 Mcg Tab) 500 mcg PO DAILY [facility] Stop: 11/28/24 08:59 Last Admin: 10/29/24 08:38 Dose: 500 mcg Sertraline HCl (Sertraline Hcl 50 Mg Tablet) 25 mg PO DAILY [facility] Stop: 11/28/24 08:59 Last Admin: 10/29/24 08:38 Dose: 25 mg Sodium Chloride (Sodium Chloride 5% Op Soln 15 Ml Btl) 1 drops OPR QID [facility] Stop: 11/27/24 20:59 Last Admin: 10/29/24 08:40 Dose: 1 drops Torsemide (Torsemide 20 Mg Tab) 40 mg PO BID JENAE Stop: 11/27/24 20:59 Last Admin: 10/29/24 08:39 Dose: 40 mg Umeclidinium/Vilanterol (Umeclidinium/Vilanterol 62.5/25mcg 7 Puffs/Inhaler) 1 puffs INH DAILY JENAE Stop: 11/28/24 08:59 Last Admin: 10/29/24 08:40 Dose: 1 puffs Pending Studies at Discharge: No Stand-Alone Forms: [facility] Skilled Items Patient informed of condition?: Yes DNR: Yes Discharge Level of Care: Other Communicable Disease: No Discharge Prognosis: Stable Lines: Peripheral IV Urinary Catheter: No Medications and DC Order Prescriptions: Continued atorvastatin 40 mg tablet 40 mg PO DAILY metformin 500 mg tablet 500 mg PO QAM aspirin 81 mg Tablet,Delayed Release (Dr/Ec) 81 mg PO DAILY nitroglycerin 0.4 mg Tablet, Sublingual 0.4 mg sublingual DIRECTED PRN (Reason: Chest Pain) lisinopril 5 mg tablet 5 mg PO DAILY albuterol sulfate 90 mcg/actuation HFA aerosol inhaler 2 puff INHALATION Q4H PRN (Reason: cough,sob,wheezing) Spiriva Respimat 2.5 mcg/actuation Mist 2 puff INHALATION DAILY Trelegy Ellipta 100-62.5-25 mcg blister with device 1 inh INHALATION QAM albuterol sulfate 2.5 mg /3 mL (0.083 %) Solution For Nebulization 2.5 mg inhalation Q4H PRN (Reason: sob) Qty: 360 0RF sertraline 25 mg tablet 25 mg PO DAILY dexlansoprazole [Dexilant] 60 mg capsule,biphase delayed releas 60 mg PO DAILY torsemide 20 mg tablet 40 mg PO BID roflumilast [Daliresp] 500 mcg Tablet 500 mcg PO DAILY sodium chloride 5 % Drops 1 drp OPR QID Rx Instructions: am, noon, evening and HS Discharge Orders: Discharge Order (Routine); Ordered 10/29/24 Ordered By: Danielito Bowen/Other Patient Handouts: Managing Type 2 Diabetes, Diabetes: Meal Planning Admission Data Admit Date/Time: 10/28/24 17:17 Attending Provider: Danielito Arauz Admit Provider: Olamide Burnett I. Primary Care Provider: Kumar Anders Other Providers: Olamide Burnett I.; Ed Collazo
--- NOTE | 2024-10-29 11:57 | Cardiac Catheterization ---
[facility] Data: Crate Icer Cardiac Status Clinical evaluation leading to the procedure CAD Presenation: Non STEMI Anginal Classification: CCS IV Heart Failure: No Cardiogenic Shock within 24 Hours: No Cardiac Arrest within 24 Hours: No Imaging Studies Past 6 Months: No Stress Studies Past 6 Months: No Coronary Anatomy Dominant: Right Left Main (% Stenosis): Normal LAD (% Stenosis): Proximal (Stent, in-stent restenosis 20 to 30%), Mid (Stent, in-stent restenosis 20 to 30%) and Distal (Stent in-stent restenosis 20 to 30% then mild scattered plaques) D1 (% Stenosis): Ostial (99%) D2 (% Stenosis): Ostial (99%) Circumflex (% Stenosis): Normal (Scattered less than 30%) OM1 (% Stenosis): Normal OM2 (% Stenosis): Normal L PL1 (% Stenosis): Normal RCA (% Stenosis): Proximal (Up to 40 to 50%), Mid (99 to 100%) and Distal (30%) R PDA (% Stenosis): Normal R PL1 (% Stenosis): Normal Diagnostic Physicians Name: Jeffrey Doherty MD, PhD Closure Device Percutaneous Entry Location: Radial Closure Device: Radial Band Recommendations: Medical Therapy and/or Counseling and PCI without planned CABG Cardiac Cath Procedure Full Procedure Date October 29, 2024 Pre-Procedure Diagnosis Pre-Procedure Diagnosis: Non STEMI AUC Score AUC Score: 07 Post-Procedure Diagnosis Post-Procedure Diagnosis: Severe CAD Procedure(s) Performed Procedure(s) Performed: Coronary Angiography Platinum [employer] Palladium Kettle Tender Jeffrey Doherty MD, PhD Estimated Blood Loss Estimated Blood Loss: 5 cc Medication(s) Medication(s): Fentanyl, Heparin, Lidocaine 1%, Nicardipine, Nitroglycerin and Versed Summary of Findings Brief description: Patient was brought to the cardiac catheterization suite where he was shaved and prepped in a sterile fashion. Sedated using IV Versed and fentanyl. Soft tissues of the right wrist were anesthetized using 2 mL of 1% Xylocaine. The right radial artery was accessed with modified Seldinger technique and a 6 Latvian radial artery glide sheath was placed. Patient was provided anticoagulation with IV heparin and antispasmodics including nicardipine and nitroglycerin. All catheters were advanced and exchanged over a 0.035 J-tip wire. Right coronary angiography in orthogonal views with a 5 [place]ian [place] 4 diagnostic catheter. Left coronary angiography in orthogonal views with a 5 Latvian JL 4 diagnostic catheter. Diagnostic catheters were removed. We contacted the [employer] system to confirm air evacuation availability. Unfortunately, this service will not be available for the remainder of the day secondary to weather. Given the complexity of the patient's disease and potential for significant complication decision was made to forego intervention at this time. The radial artery sheath was removed and hemostasis was obtained using the TR band. Patient remained hemodynamically stable and asymptomatic. He was r eturned to the recovery area. This ended the case. Coronary angiography findings: [id number] vessel bifurcating into LAD and circumflex. There is mild to moderate calcification and no more than mild luminal irregularities. LAD-this is large caliber and transapical. There is a long stent train beginning just after the ostium and extending through the early part of the distal vessel. Arising from the stent train is a moderate-sized first diagonal with up prior stent. There is ostial 99 to 100% occlusion of the stent. There is a second diagonal which is medium to large in caliber and branching which also has ostial 99% stenosis. The stent train itself has diffuse in-stent restenosis of 20 to 30%. The LAD beyond the stent train has mild scattered plaques. LCx-this is large caliber and nondominant. Travels in the AV groove where it gives first and atrial branch followed by 2 small obtuse marginal branch and then a another larger atrial branch. Distally the vessel then becomes a medium caliber branching posterolateral. The circumflex and its branches have no more than scattered disease of less than 30% stenosis. RCA-this is large caliber and dominant. Diffuse calcification proximally with up to 40% stenosis. The mid segment has diffuse disease and is also calcified. 99% occluded just after the large RV marginal branch. There is also likely some bridging collateralization. The distal RCA has diffuse less than 30% stenosis and then bifurcates into the PDA and posterolateral branches. PDA is large as is the posterolateral which itself has several branches. There is scattered mild less than 30% stenosis in the PDA and posterolateral branches. Of note, a small distal branch fills via [id number]-cmvin collateralization. Summary: 1. Patent prior stents with mild to moderate in-stent restenosis in the LAD and occlusion in the diagonal branches. 2. Severe subtotal occlusion in the very large RCA with significant calcification and ectasia. This is culprit for recent non-ST elevation OK. 3. Recommend PCI of the RCA. This will likely require intracoronary lithotripsy and a large caliber balloons/stents. This should be performed with CT surgery backup or at minimum air evacuation availability. 4. Guideline directed medical therapy for secondary prevention of coronary disease per primary rat exterminator. Hemodynamics Rest Ao:: 89/68 mmHg Final Ao: 91/67 mmHg LV: Not performed Recommendations Recommendations: Medical Therapy and/or Counseling and PCI without planned CABG Radiation Exposure (mGy) 1019 mGy, fluoroscopy time 1.5 minutes Contrast (mls) 85 cc Anesthesia 1 mg Versed, 25 mcg fentanyl IV. Start time 1008, end time 1027 Procedural Complication(s) None Disposition Recovery Room\PACU I attest to the content of the Intraoperative Record and any orders documented therein. Any exceptions are noted below. [facility] Card Cath Procedure Codes Cardiac Catheterization Procedure 1: Cardiovascular Cath Procedures: 04493 Coronaries Moderate Sedation Procedure 1: Sedation/Anesthesia: 23591 Mod Sedation by the same physician;Init15 Min Child Age 5 & Up (Initial 15 minutes, start time 1008) Procedure 2: Sedation/Anesthesia: 62888 Mod Sedation by the same physician; Ea [id number] Minutes (Additional 4 minutes, end time 1027) PG Care Time/CCT Total # of Minutes Spent Total Time Spent with Patient: Total time spent is greater than 50% in coordination of care (as documented) at patient's floor/unit and/or counseling patient:
[2024-10-29 12:32] LABS: ANTI-Xa, UFH(UnfractionatedHep > 1.50 IU/ml (0.3-0.7)
--- NOTE | 2024-10-29 16:26 | Electrocardiogram Report ---
Test Reason : Blood Pressure : */* mmHG Vent. Rate : 85 BPM Atrial Rate : 85 BPM P-R Int : 212 ms QRS Dur : 128 ms QT Int : 428 ms P-R-T Axes : 46 -58 -17 degrees QTcB Int : 509 ms Sinus rhythm with 1st degree A-V block Left axis deviation Right bundle branch block Inferior infarct (cited on or before 28-Oct-2024) Anteroseptal infarct (cited on or before 28-Oct-2024) Abnormal ECG When compared with ECG of 28-Oct-2024 16:03, Aberrant conduction is no longer Present Confirmed by Suman Doan ([id number]) on 10/29/2024 4:26:09 PM Referred By: REFERRED SELF Confirmed By: Suman Doan
[2024-10-29 19:30] LABS: ANTI-Xa, UFH(UnfractionatedHep 0.59 IU/ml (0.3-0.7)
[2024-10-29 19:59] VITALS: BP 112/73; PULSE 108; RESP 22; TEMP 98.2; O2SAT 95
== END 2024-10-29 20:26 | disposition short-term general hospital (02) | DRG 281 ==
LOC: ED 15:50 → 4W 17:17 → SUATTDRO 17:17 → 4W 18:30
PROC: CLB.CCO (2024-10-29 09:00)

== ENCOUNTER 2024-11-09 15:20 | Inpatient (IN) ==
--- OUTSIDE RECORDS SUMMARY | 2024-11-09 15:27 | External Medical Summary | Summary of Care ---
Author Name Unknown Organization [facility] Address [address] [place] [address] Phone [phone] Care Team Providers Care Joy Loading Machine Operator Name Role Phone Kumar Anders DO Primary Care Provider [phone] Encounter Details Date Type Department Care Team (Late st Contact Info) Description 11/04/2024 10:00 AM EST [facility] [address] [place] [address] Estefani Gomez, RN [address] [facility] [place] [address] Allergies Active Allergy Reactions Criticality Noted Date Comments Penicillins Hives 06/19/2009 Pentobarbital Sodium 04/10/2014 documented as of this encounter (statuses as of 11/04/2024) Medications ASPIRIN 81 MG PO TABS Active Hydrocodone-Sha taminophen 10-325 MG per tablet Take 1 Tablet by mouth every 4 hours as needed. 0 06/25/20 15 Active lisinopril (PRINIVIL) 5 MG Tablet Take 1 Tablet by mouth in the morning. 5 06/15/20 15 Active nitroglycerin (NITROSTAT) 0.4 MG SUBL Active metFORMIN (GLUCOPHAGE) 500 MG Tablet Take 1 Tablet by mouth daily with breakfast. 5 12/01/19 17 Active albuterol (VENTOLIN HFA) 108 (90 BASE) MCG/ACT inhalerIndicati ons:COPD, moderate (HCC) Inhale 2 Puffs by mouth every 4 hours as needed for Cough, Shortness of Breath, Wheezing or Dyspnea. 1 Inhaler 11 09/24/20 18 Active oxygen IN GAS Continue 3L Oxygen at night daily, discontinue oxygen during daytime. 1 Each 04/22/20 22 Active Roflumilast 500 MCG Oral Tablet (Daliresp)Indic ations:HTN, goal below 140/90 Take 1 Tablet by mouth in the morning. 30 Tablet 5 03/29/20 23 Active Ciprofloxacin HCl 0.3 % Ophthalmic Solution Instill 1 Drop into both eyes in the morning and 1 Drop at noon and 1 Drop in the evening and 1 Drop before bedtime. 5 mL 1 03/30/20 23 Active Albuterol Sulfate (2.5 MG/3ML) 0.083% Inhalation Nebulization Solution (Proventil) Inhale 1 Vial via nebulizer every 4 hours as needed for Wheezing. 360 mL 1 04/17/20 23 Active Acetaminophen 500 MG Oral Tablet (Tylenol) Take 1 Tablet by mouth every 6 hours as needed. Active Fluticasone-Ume clidin-Vilant 100-62.5-25 MCG/ACT Aerosol Powder Breath Activated (Trelegy Ellipta)Indicat ions:COPD, severe (HCC) Inhale 1 Puff by mouth in the morning. 1 Each 5 08/22/20 23 Active Torsemide 20 MG Oral Tablet Take 2 Tablets by mouth 2 times a day in the morning and at noon. 360 Tablet 3 01/11/20 24 Active Sodium Chloride (Hypertonic) 5 % Ophthalmic Solution (Murtaza-128) INSTILL 1 DROP INTO THE RIGHT EYE IN THE MORNING AND 1 DROP AT NOON AND 1 DROP IN THE EVENING AND 1 DROP BEFORE BEDTIME. 30 mL 5 04/30/20 24 Active OneTouch Ultra In Vitro Strip 05/15/20 24 Active Brilinta 90 MG Oral Tablet (Ticagrelor) Take 1 Tablet by mouth in the morning and 1 Tablet before bedtime. Do not start before November 01, 2024. 60 Tablet 11 4 9:44 AM EST 11/01/20 24 Active Atorvastatin Calcium 80 MG Oral Tablet (Lipitor) Take 1 Tablet by mouth every morning. 30 Tablet 3 4 9:44 AM EST 11/01/20 24 2024 Active Carvedilol 6.25 MG Oral Tablet (Coreg) Take 1 Tablet by mouth two times per day (morning & before bedtime). 68 Tablet 11 4 9:44 AM EST 11/01/20 24 Active Sertraline HCl 25 MG Oral Tablet (Zoloft) Take 1 Tablet by mouth in the morning. Active Respiratory Therapy Supplies KIT Med resmed airfit mask w/head gear, supply tubing, filter, non-disposable filter, cushion DX G 47.33 1 Kit 11 09/08/20 17 2023 Discontinued Dexilant 60 MG Oral Capsule Delayed ReleaseIndicati ons:HTN, goal below 140/90 Take 1 Capsule by mouth in the morning. 30 Capsule 5 03/29/20 23 2023 Discontinued Gabapentin 400 MG Oral Capsule (Neurontin) TAKE 1 CAPSULE BY MOUTH BEFORE BED 90 Capsule 1 07/02/20 23 2023 Discontinued(P atient preference/dis continuation) Citalopram Hydrobromide 10 MG Oral Tablet (CeleXA) Take 1 Tablet by mouth in the morning. 2023 Discontinued documented as of this encounter (statuses as of 11/04/2024) Active Problems Problem Noted Date Diagnosed Date HLD (hyperlipidemia) 10/30/2024 NSTEMI (non-ST elevated myocardial infarction) 1 12/30/2023 Marijuana smoker 04/18/2023 Type 2 diabetes mellitus wit h diabetic peripheral angiopathy without gangrene 04/17/2023 Assessment & Plan (04/18/2023 2:13 PM EDT): "RED FLAG" Diabetic symptoms: o Confusion and Vision Changes Goal HgbA1c o <8 Diabetic Complications o Vascular (examples: PVD, PAD, CAD, CVA) Medication Regimen o Metformin DM Secondary Prevention o SHA Inhibitor / ARB o Moderate-High Intensity Statin [...] - LEXY o Class D - Inhaled Bolzprccizmzze-DLGZ-VTUN Combination Inhaler (Trellegy) Self-Management plan o High frequency nebulizer treatments every 4-6 hours around the clock o Begin wearing supplemental oxygen continuously until symptoms return to baseline Exacerbation plan o BMP o Chest Xray Additional Comments: o Stable today Chronic rhinitis 09/10/2020 Hearing loss, mixed, bilateral 09/10/2020 RBBB (right bundle branch block) 09/02/2019 Chronic respiratory failure with hypoxia 019 Assessment & Plan (04/18/2023 2:03 PM EDT): Wearing 2L qhs and prn Pre-syncope 12/09/2018 Falls 12/09/2018 Acute midline low back pain without sciatica Lumbar radiculopathy 03/26/2017 Chronic back pain 03/26/2017 Assessment & Plan (04/18/2023 2:46 PM EDT): Taking vicodin prn Controlled substance agreement signed 03/25/2017 Tobacco abuse 03/16/2015 Assessment & Plan (04/18/2023 2:14 PM EDT): Not interested in cessation. Rolls own cigarettes and smokes 3ppd including marijuana. Tobacco dependence syndrome 03/16/2015 HTN, goal below 140/90 08/28/2011 Percutaneous transluminal coronary angioplasty s tatus 08/28/2011 Type 2 diabetes mellitus wit h hemoglobin A1c goal of less than 7.0% 08/28/2011 Overview (03/01/2016): ICD-10 update of inactive term Dyslipidemia, goal to be determined 08/28/2011 Assessment & Plan (04/18/2023 2:17 PM EDT): Continues atorvastatin--no Lipid panel on file. PCP [facility] Coronary atherosclerosis of [place] coronary [place] ry 08/28/2011 BMI 35-39 ISOLATED (SEE ACTUAL BMI) 04/19/2010 Overview (04/19/2010): Per Obesity Protocol, #19 SANJAY (obstructive sleep apnea) Assessment & Plan (04/18/2023 2:15 PM EDT): Refuses CPAP documented as of this encounter (statuses as of 11/04/2024) Resolved Problems Problem Noted Date Diagnosed Date Resolved Date Complicated UTI (urinary tract infection) 10/30/2024 10/30/2024 documented as of this encounter (statuses as of 11/04/2024) Immunizations Name Administration Dates Next Due COVID-19 mRNA, LNP-s, No Pre serve, 2-Dose Series (Moderna) 02/23/2021,02/05/2021 COVID-19, mRNA, LNP-s, PF, B ooster, 100mcg/0.5mg (Moderna) 10/19/2021 Pneumococcal Conjugate Vaccine, 20-valent (Prevn ar20) 11/01/2024 Pneumococcal Polysaccharide PPV23 (Pneumovax) Seasonal Influenza Vac., MDV, IM, 0.5 mL (Fluzon e) 08/05/2013 Seasonal Influenza, High Dos e, Trivalent, PF, IM (Fluzone HD) 11/01/2024,07/16/2018 Seasonal Influenza, Quadrivalent Hd, 65+ Yrs 11/2019 Seasonal Influenza, Trivalent, (IIV3), PF, (Fluz one) 08/06/2017 Seasonal Influenza, Trivalen t, Adjuvanted, 65+ YRS, PF, (Fluad) 07/25/2019 TDAP (age 10 and older)(Boostrix) 07/03/2022,09/2015 documented as of this encounter Social History Tobacco Use Types Packs/Day Years Used Date Smoking Tobacco: Every Day Cigarettes 1.5 57 Smokeless Tobacco: Never Comments:About 3 packs daily Alcohol Use Standard Drinks/Week Comments Not Currently [...] the money to buy more. Never true 11/04/20 24 Within the past 12 months, t he food you bought just didn't last and you didn't have money to get more. Never true 11/04/2024 Childcare Answer Date Recorded Do you feel overwhelmed with taking care of a child, family member or friend? No 11/04/2024 Does your family need help f inding childcare? (Household - for ages 0-17 years) Not on file 11/04/2024 Clothing Answer Date Recorded Have you been unable to get clothing when it was really needed? No 11/04/2024 Is your family able to get c lothes or diapers when needed? (Household - for ages 0-17 years) Not on file 11/04/2024 Personal Safety Answer Date Recorded Do you feel unsafe or have concerns for your saf ety? No 11/04/2024 Do you have concerns for you r family's safety? (Household - for ages 0-17 years) Not on file 11/04/2024 Utilities Answer Date Recorded Do you have trouble paying y our heating, water, or electric bill? No 11/04/2024 Is your family able to pay t he heat, water, or electric bill? (Household - for ages 0-17 years) Not on file 11/04/2024 Does your family have access to good internet? (Household - for ages 0-17 years) Not on file 11/04/2024 Employment Status Answer Date Recorded Are you unemployed or without regular income? No 11/04/2024 Does the household have a re gular source of income? (Household - for ages 0-17 years) Not on file 11/04/2024 Social Connections Answer Date Recorded How often do you feel lonely or isolated from th ose around you? Never 11/04/2024 Financial Resource Strain Answer Date R ecorded Do you have any trouble payi ng for your medications, or do you think you might in the future? No 11/04/2024 Does your family have troubl e paying for medicine? (Household - for ages 0-17 years) Not on file 11/04/2024 Transportation Needs Answer Date Record ed Do you have trouble getting a ride to medical visits or work? (Adult - for ages 18 years and over) Not on file 11/04/2024 Does your family have a hard time getting a ride to doctors visits? (Household - for ages 0-17 years) Not on file 11/04/2024 Has lack of transportation k ept you from medical appointments, meetings, work, or from getting things needed for daily living? Check all that apply. No 11/04/2024 Do you (or your family) have trouble finding or paying for a ride (transportation)? (Household - for ages 0-17 years) Not on file 11/04/2024 Housing Stability Answer Date Recorded Do you currently live in a s helter or have no steady place to sleep at night? No 11/04/2024 Do you think you are at risk of becoming homeless? (Adult - for ages 18 years and over) Not on file 11/04/2024 Does your family worry about paying for your home or becoming homeless? (Household - for ages 0-17 years) Not on file 1 Are you homeless or worried that you might be in the future? No 11/04/2024 Are you (or your family) armando eless or worried that you might be in the future? (Household - for ages 0-17 years) Not on file Food Insecurity Answer Date Recorded Do you need food for this week? No 11/04/2024 Are you able to get enough f ood for your family? (Household - for ages 0-17 years) Not on file 11/04/2024 Does your family need food t his week? (Household - for ages 0-17 years) Not on file 11/04/2024 Do you always have enough fo od for your family? (Household - for ages 0-17 years) Not on file 11/04/2024 Sex and Gender Information Value Date Recorded [...] hearing? Answer Date of Assessment Author No 10/29/2024 11:28 PM Burt Adamson RN * Are you blind or do you have serious difficulty seeing, even when wearing glasses? Answer Date of Assessment Author Yes 10/29/2024 11:28 PM Burt Adamson RN * Do you have serious difficulty walking or climbing stairs? (5 years old or older) Answer Date of Assessment Author Yes 10/29/2024 11:28 PM Burt Adamson RN * Do you have difficulty dressing or bathing? (5 years old or older) Answer Date of Assessment Author Yes 10/29/2024 11:28 PM Burt Adamson RN * Because of a physical, mental, or emotional condition, do you have difficulty doing errands alone such as visiting a doctors office or shopping? (15 years old or older) Answer Date of Assessment Author Yes 10/29/2024 11:28 PM Burt Adamson RN documented as of this encounter Mental Status * Because of a physical, mental, or emotional condition, do you have serious difficulty concentrating, remembering, or making decisions? (5 years old or older) Answer Entry Date Author Yes 10/29/2024 11:28 PM Burt Adamson RN documented in this encounter Progress Notes * Estefani Gomez, RN - 11/04/2024 9:39 AM EST Current Concerns: [facility] Enrollment visit Utilization: 10/29- - C, NSTEMI, L heart cath Treatment/Plan: SNP - DO NOT CLOSE To make PCP hospital f/u apt Disha said pt being set up with Pulmonology Check bsgs 3-4 times daily - record Disha dispenses meds from bottles daily 3lnc at hs NTG for chest pain Albuterol inhaler prn Has no running water or inside toilet (content with this and does not wish for living situation to change) No connectivity (or Smart Phone) for RPM Smokes 3ppd - offer cessation with each visit Smokes marijuana daily THIS VISIT: Bsg 130 this morning Missing dilaresp and baby Disha andre going to pharmacy today Disha present for visit Reviewed with her to utilize med list from hospital d/c to dispense meds - agreed to do so Home busy with 5 dogs and 9 cats inside - dogs in kennel during visit States knows how to use ntg but did not know could use more than one tab - reviewed with him properuse - VU Physical Exam: Physical Exam Constitutional: Appearance: He is normal weight. HENT: Head: Normocephalic and atraumatic. Nose: Nose normal. Mouth/Throat: Mouth: Mucous membranes are moist. Cardiovascular: Rate and Rhythm: Normal rate and regular rhythm. Pulmonary: Effort: Pulmonary effort is normal. Breath sounds: Normal breath sounds. Comments: Diminished throughout Abdominal: General: Bowel sounds are normal. There is no distension. Palpations: Abdomen is soft. Musculoskeletal: Right lower leg: No edema. Left lower leg: No edema. Comments: +2 -+3 to pre tibial area BLEs Skin: General: Skin is warm. Neurological: Mental Status: He is alert and oriented to person, place, and time. Gait: Gait normal. Review of Systems: Review of Systems Constitutional: Negative. HENT: Negative. Eyes: Negative. Respiratory: Positive for cough (chronic. npc) and shortness of breath (occasional MCCOLLUM). Negative for wheezing. Cardiovascular: Negative. Negative for chest pain and leg swelling. Gastrointestinal: Negative for abdominal distention, nausea and vomiting. Endocrine: Negative. Genitourinary: Negative. Negative for difficulty urinating and dysuria. Musculoskeletal: Negative. Skin: Positive for wound (R groin cath site, dressing removed, no s/s invection, has small skin tear in fold of groin, encouraged to keep ALEM with dry clean washcloth tucked in fold). Allergic/Immunologic: Negative. Neurological: Negative. Negative for dizziness and light-headedness. Hematological: Negative. Psychiatric/Behavioral: Negative. Care Plan Goal Progress: Patient will maintain management & treatment regimen. (Progressing) Start: 11/04/24 Expected End: 05/03/25 GS - Patient/caregiver will verbalize angina action plan. (Progressing) Start: 11/04/24 Expected End: 05/03/25 Orders Placed: No orders of the defined types were placed in this encounter. Medications Given: none Care Gaps: Care Gaps Care gaps closed this contact: Education;Plan of Care (POC) (11/04/24 1823) Type of education: Clinical/disease;Educated on the benefits of connecting with their PCP () Type of plan of care (POC) care gap: Creation of plan of care (POC) and/or Integrated Care Plan (ICP);Creation of exacerbation plan (developed exacerbation plan and 3 red flags);Adjustment of plan ofcare (POC) and/or Integrated Care Plan (ICP);Education and review of exacerbation plan (11/04/24 2197) documented in this encounter Miscellaneous Notes * Care Plan - Estefani Gomez RN - 11/04/2024 1:04 PM EST Goals: Stay in home Stay out of hospital documented in this encounter Plan of Treatment Upcoming Encounters Date Type Department Care Team (Late st Contact Info) Description 12/03/2024 1:00 PM EST [facility] Visit [facility] [address] [place] [address] Mateo Irving PA-C [address] [place] [id number] 12/19/2024 10:00 AM EST [facility] Visit [facility] [address] [place] [address] Estefani Gomez RN [address] [facility] [place] [address] 06/26/2025 8:15 AM EDT Office Visit Ophthalmology, [place] [id number] David Wang MD [address] [place] [id number] Health Maintenance Due Date Last Done Comments Diabetic Foot Exam 1963 Hepatitis C Screening 1963 Zoster Vaccines (1 of 2) 1997 *ADVANCE DIRECTIVE NOT ON FILE 03/19/2015 Albumin/Creatinine Ratio 01/13/2016 01/12/2015 DISCUSS TOBACCO CESSATION (REFER TO SMARTSET #3291) 05/24/2024 05/24/2023, 04/22/2022, 09/24/2018, Additional history exists COVID-19 Vaccine ( season) 2024 10/19/2021, 02/23/2021, 02/05/2021 HbA1c 04/30/2025 10/30/2024, 0901/2019, 12/10/2018, Additional history exists Diabetic Eye Exam 06/25/2025 06/25/2024, , 06/08/2023, Additional history exists Depression Screening 07/12/2025 07/12/2024 GFR 11/01/2025 11/01/2024, 10/07, 10/30/2024, Additional history exists O2 ASSESSMENT COMPLETED IN PAST YEAR FOR COPD 11/04/2025 11/04/2024 DTap/Tdap Vaccines (3 - Td or Tdap) 07/03/2032 07/03/2022, 05/16/2015 Alpha-1 Antitrypsin Completed 10/10/2022 Lung Cancer Screening Completed 10/10/2022 , 10/04/2021, 08/21/2021, Additional history exists Influenza Vaccine (FLU shot) Completed , 07/08/2022, 07/22/2021, Additional history exists Pneumococcal Vaccine: 50+ Years Completed 11/01/2024, 08/05/2013 HPV (Gardasil) Vaccine Aged Out No lo nger eligible based on patient's age to complete this topic Hepatitis B Vaccine Aged Out No longe r eligible based on patient's age to complete this topic MENINGOCOCCAL (MENACTRA/MENVEO) Aged Out No longer eligible based on patient's age to complete this topic documented as of this encounter Medical Devices Implanted Type Area Bologna Maker Device Identifier Shelf Expiration Date Model / Serial / Lot Stent [place] 3.50x34 [place] [employer] - [id number] Implanted:Qty: 1 on 10/31/2024 by Juan Manuel Ellis MD at [facility] [place] [employer] : VASCULAR [id number] 05/04/2027 [id number] UX / / [id number] documented as of this encounter Advance Directives * Full Code (Latest Code Status on File) Date Activated Date Inactivated Comments 10/29/2024 10:36 PM 11/01/2024 6:21 PM This orde r reflects the patients wishes and were consensually agreed upon. Question Answer Comments Discussion of Advance Directives occurred with: Patient * Full Code Date Activated Date Inactivated Comments 08/07/2019 11:25 [...] the patient have Health Care Power of Architecture Department Chair? Yes, not currently available Healthcare Agents on File Name Relationship Healthcare Agent Relationshi p Communication Cheli Mcgraws Adult Child Health Care Repr esentative (appointed verbally by patient or by statute hierarchy) Care Teams Joy Loading Machine Operator Relationship Specialty Start Date End Date Kumar Anders DO [address] [place] [address] PCP - General 12/14/07 documented as of this encounter
--- OUTSIDE RECORDS SUMMARY | 2024-11-09 15:27 | External Medical Summary | Summary of Care ---
Author Name Unknown Organization [facility] Address [address] [place] [address] Phone [phone] Care Team Providers Care Molder Punch Name Role Phone AndersKumar DO Primary Care Provider [phone] Reason for Visit * Reason Onset Date Comments [facility]: Maintenance 11/03/2024 Encounter Details Date Type Department Care Team (Late st Contact Info) Description 11/03/2024 11:30 AM EST Scheduled Telephone [facility], [facility] [address] [place] [address] [facility], Nurse [facility] [address] [place] [address] Allergies Active Allergy Reactions Criticality Noted Date Comments Penicillins Hives 06/19/2009 Pentobarbital Sodium 04/10/2014 documented as of this encounter (statuses as of 11/03/2024) Medications ASPIRIN 81 MG PO TABS Active Hydrocodone-Acet aminophen 10-325 MG per tablet Take 1 Tablet by mouth every 4 hours as needed. 0 5 Active lisinopril (PRINIVIL) 5 MG Tablet Take 1 Tablet by mouth in the morning. 5 5 Active nitroglycerin (NITROSTAT) 0.4 MG SUBL Active metFORMIN (GLUCOPHAGE) 500 MG Tablet Take 1 Tablet by mouth daily with breakfast. 5 7 Active Respiratory Therapy Supplies KIT M[employer]D ANTIQUES & CONSIGNMENT resmed airfit mask w/head gear, supply tubing, filter, non-disposable filter, cushion DX G 47.33 1 Kit 11 7 Active Additional Information Patient not taking.Reported on 10/29/2024 albuterol (VENTOLIN HFA) 108 (90 BASE) MCG/ACT [...] the morning. 30 Capsule 5 3 Active Additional Information Patient not taking.Reported on 10/29/2024 Roflumilast 500 MCG Oral Tablet (Daliresp)Indica tions:HTN, [...] BEFORE BED 90 Capsule 1 3 Active Additional Information Patient not taking.Reported on 10/29/2024 Acetaminophen 500 MG Oral Tablet (Tylenol) Take [...] Strip TEST SUGAR TWICE DAILY 4 Active Citalopram Hydrobromide 10 MG Oral Tablet (CeleXA) Take 1 Tablet by mouth in the morning. Active Brilinta 90 MG Oral Tablet (Ticagrelor) Take 1 Tablet by mouth in the morning and 1 Tablet before bedtime. Do not start before November 01, 2024. 60 Tablet 11 11/01/2024 9:44 AM EST 4 Active Atorvastatin Calcium 80 MG Oral Tablet (Lipitor) Take 1 Tablet by mouth every morning. 30 Tablet 3 11/01/2024 9:44 AM EST 4 12/01/19 25 Active Carvedilol 6.25 MG Oral Tablet (Coreg) Take 1 Tablet by mouth two times per day (morning & before bedtime). 68 Tablet 11 11/01/2024 9:44 AM EST 4 Active documented as of this encounter (statuses as of 11/03/2024) Active Problems Problem Noted Date Diagnosed Date [...] - LEXY o Class D - Inhaled Chmoxfcycwfnmx-DEIM-CDGP Combination Inhaler (Trellegy) Self-Management plan o High [...] on file. [facility] Coronary atherosclerosis of [place] coronary [place] ry 08/28/2011 BMI 35-39 ISOLATED (SEE ACTUAL BMI) 04/19/2010 Overview (04/19/2010): Per Obesity Protocol, #19 SANJAY (obstructive sleep apnea) Assessment & Plan (04/18/2023 2:15 PM EDT): Refuses CPAP documented as of this encounter (statuses as of 11/03/2024) Resolved Problems Problem Noted Date Diagnosed Date Resolved Date Complicated UTI (urinary tract infection) 10/30/2024 10/30/2024 documented as of this encounter (statuses as of 11/03/2024) Immunizations Name Administration Dates Next Due COVID-19 [...] Burt Adamson RN documented in this encounter Miscellaneous Notes * Telephone Encounter - Joi Kuhn RN - 11/03/2024 9:04 AM EST Spoke with pt's dtr, made aware of enrollment visit scheduled for tomorrow, requesting call back later today to confirm as her dtr who would be home at that time works retail shift supervisor and is currently asleep. 1421 addendum: Called and spoke with pt's dtr, confirmed visit for tomorrow as scheduled, dtr asked that Estefani call prior to coming. documented in this encounter Plan of Treatment Upcoming Encounters Date Type Department Care Team (Late st Contact Info) Description 11/04/2024 10:00 AM EST Home Visit [facility], [facility] [address] [place] [address] Estefani Gomez, RN [address] [place] [address] 12/03/2024 1:00 PM EST [facility] Visit [facility], [facility] [place] [address] Mateo Irving PA-C [address] [place] [address] 06/26/2025 8:15 AM EDT Office Visit Ophthalmology, [place] [address] [place] [address] David Wang MD [address] [place] [address] Health Maintenance Due Date Last Done Comments Diabetic Foot Exam 1963 Hepatitis C Screening 1963 Zoster Vaccines (1 of 2) 1997 *ADVANCE DIRECTIVE NOT ON FILE 03/19/2015 Albumin/Creatinine Ratio 01/13/2016 01/12/2015 DISCUSS TOBACCO CESSATION (REFER TO SMARTSET #0900) 05/24/2024 05/24/2023, 04/22/2022, 09/24/2018, Additional history exists COVID-19 Vaccine ( season) 2024 10/19/2021, 02/23/2021, 02/05/2021 HbA1c 04/30/2025 10/30/2024, 0901/2019, 12/10/2018, Additional history exists Diabetic Eye Exam 06/25/2025 06/25/2024, , 06/08/2023, Additional history exists Depression Screening 07/12/2025 07/12/2024 GFR 11/01/2025 11/01/2024, 10/07, 10/30/2024, Additional history exists O2 ASSESSMENT COMPLETED IN PAST YEAR FOR COPD 11/01/2025 11/01/2024 DTap/Tdap Vaccines (3 - Td or Tdap) [...] this encounter Medical Devices Implanted Type Area Genetic Coordinator Device Identifier Shelf Expiration Date Model / Serial / Lot Stent Cortez 3.50x34 [employer] - [id number] Implanted:Qty: 1 on 10/31/2024 by Juan Manuel Ellis [place] [facility] [place] [facility] [place] [id number] 05/04/2027 [id number] / / [id number] documented as of this encounter Advance Directives [...] the patient have Health Care Power of Emt Basic? Yes, not currently available Healthcare Agents on File Name Relationship Healthcare Agent Relationshi p Communication [facility] Child [facility] Repr esentative (appointed verbally by patient or by statute hierarchy) Care Teams Molder Punch Relationship Specialty Start Date End Date Kumar Anders DO [address] [place], [place] [id number] PCP - General 12/14/07 documented as of this encounter
--- OUTSIDE RECORDS SUMMARY | 2024-11-09 15:27 | External Medical Summary | Summary of Care ---
Author Name Unknown Organization [facility] Address [address] [place] [address] Phone [phone] Care Team Providers Care Pile Driving Setter Name Role Phone Kumar Anders DO Primary Care Provider [phone] Encounter Details Date Type Department Care Team (Late st Contact Info) Description 11/04/2024 10:00 AM EST [facility] [place] [address] Estefani Gomez, RN [address] [facility] [place] [address] Allergies Active Allergy Reactions Criticality Noted Date [...] - LEXY o Class D - Inhaled Vddverrhmkqlyh-YWIE-VYVE Combination Inhaler (Trellegy) Self-Management plan o High [...] on file. [facility] Coronary atherosclerosis of [place] coronary [place] ry 08/28/2011 BMI 35-39 ISOLATED [...] - 11/04/2024 9:39 AM EST Current Concerns: [facility] Enrollment visit Utilization: 10/29- - C, NSTEMI, [...] this contact: Education;Plan of Care (POC) (11/04/24 8583) Type of education: Clinical/disease;Educated on the benefits of connecting with their PCP () Type of plan of care (POC) care gap: Creation of plan of care (POC) and/or Integrated Care Plan (ICP);Creation of exacerbation plan (developed exacerbation plan and 3 red flags);Adjustment of plan ofcare (POC) and/or Integrated Care Plan (ICP);Education and review of exacerbation plan (11/04/24 1147) documented in this encounter Miscellaneous Notes * Care Plan - Estefani Gomez RN - 11/04/2024 1:04 PM EST Goals: Stay in home Stay out of hospital documented in this encounter Plan of Treatment Upcoming Encounters Date Type Department Care Team (Late st Contact Info) Description 12/03/2024 1:00 PM EST [facility] [address] [place] [address] Mateo Irving PA-C [address] [place] [address] 12/19/2024 10:00 AM EST [facility] Visit [facility] [address] [place] [address] Estefani Gomez RN [address] [facility] [place] [address] 06/26/2025 8:15 AM EDT Office Visit Ophthalmology, [place] [address] David Wang MD [address] [place] [address] Health Maintenance Due Date Last Done Comments [...] this encounter Medical Devices Implanted Type Area Inspector Boiler Device Identifier Shelf Expiration Date Model / Serial / Lot Stent [place] 3.50x34 [employer] Rx - [id number] Implanted:Qty: 1 on 10/31/2024 by Juan Manuel Ellis MD at [facility] [place] [employer] : VASCULAR [id number] 05/04/2027 [id number] UX / / [id number] documented as of this encounter Advance Directives [...] the patient have Health Care Power of Tank Bottom Assembler? Yes, not currently available Healthcare Agents on File Name Relationship Healthcare Agent Relationshi p Communication [facility] Child Health Care Repr esentative (appointed verbally by patient or by statute hierarchy) Care Teams Pile Driving Setter Relationship Specialty Start Date End Date Kumar Anders DO [address] [place] [address] PCP - General 12/14/07 documented as of this encounter
--- OUTSIDE RECORDS SUMMARY | 2024-11-09 15:27 | External Medical Summary | Summary of Care ---
Author Name Unknown Organization [facility] Address [address] [place] [address] Phone [phone] Care Team Providers Care Yard General Car Supervisor Name Role Phone Anders, Kumar Saha DO Primary Care Provider [phone] Reason for Visit * Reason Onset Date Comments Appointment 11/07/2024 Encounter Details Date Type Department Care Team (Late st Contact Info) Description 11/07/2024 Telephone [facility], [place] [address] [place], [place] [phone] Azael, Joseph, SANJAY [address] [place], [place] [phone] Appointment Allergies Active Allergy Reactions Criticality Noted Date Comments Penicillins Hives 06/19/2009 Pentobarbital Sodium 04/10/2014 documented as of this encounter (statuses as of 11/07/2024) Medications ASPIRIN 81 MG PO TABS Active [...] mouth daily with breakfast. 5 7 Active albuterol (VENTOLIN HFA) 108 (90 BASE) MCG/ACT inhalerIndicatio ns:COPD, moderate (HCC) Inhale 2 Puffs by mouth every 4 hours as needed for Cough, Shortness of Breath, Wheezing or Dyspnea. 1 Inhaler 11 8 Active oxygen IN GAS Continue 3L Oxygen at night daily, discontinue oxygen during daytime. 1 Each 2 Active Roflumilast 500 MCG Oral Tablet (Daliresp)Indica [...] for Wheezing. 360 mL 1 3 Active Acetaminophen 500 MG Oral [...] 4 Active OneTouch Ultra In Vitro Strip 4 Active Brilinta 90 MG Oral Tablet (Ticagrelor) [...] 68 Tablet 11 11/01/2024 9:44 AM EST Active Sertraline HCl 25 MG Oral Tablet (Zoloft) Take 1 Tablet by mouth in the morning. Active documented as of this encounter (statuses as of 11/07/2024) Active Problems Problem Noted Date Diagnosed Date [...] - LEXY o Class D - Inhaled Snlglybzaduwup-UMLI-DQJU Combination Inhaler (Trellegy) Self-Management plan o High [...] on file. [facility] Coronary atherosclerosis of [place] coronary [place] ry 08/28/2011 BMI 35-39 ISOLATED (SEE ACTUAL BMI) 04/19/2010 Overview (04/19/2010): Per Obesity Protocol, #19 SANJAY (obstructive sleep apnea) Assessment & Plan (04/18/2023 2:15 PM EDT): Refuses CPAP documented as of this encounter (statuses as of 11/07/2024) Resolved Problems Problem Noted Date Diagnosed Date Resolved Date Complicated UTI (urinary tract infection) 10/30/2024 10/30/2024 documented as of this encounter (statuses as of 11/07/2024) Immunizations Name Administration Dates Next Due COVID-19 [...] No 11/04/2024 Does the household have a [facility] source of income? (Household - for ages [...] encounter Miscellaneous Notes * Telephone Encounter - Joseph Addison OSA - 11/07/2024 12:01 PM EST Incoming call from Bambi stating EMMANUEL called her a little bit ago regarding an appt on the and wanted to know what this appt was. EMMANUEL explained this is a JULITO 4 with CHW Stephenie Witt. Bambi wanted to know what a CHW is and what would be happening during this appt. Per Bambi, she is fine with GA coming 1x a month but cannot have someone come out every week. Bambi stated they have pets and family members work night clerk. Per request, 11/21 appt cancelled. Routing to care team with update. documented in this encounter Plan of Treatment Upcoming Encounters Date Type Department Care Team (Late st Contact Info) Description 11/15/2024 3:00 PM EST [facility] [address] [place] [address] Mateo Irving PA-C [address] [place] [address] 12/03/2024 1:00 PM EST [facility] Visit [facility] [address] [place] [address] Mateo Irving PA-C [address] [place] [address] 12/19/2024 10:00 AM EST Home Visit [facility], [facility] [address] [place] [address] Estefani Gomez, RN [address] [place] [address] 06/26/2025 8:15 AM EDT Office Visit Ophthalmology, [place] [address] [place] [address] David Wang MD [address] [place] [address] Health Maintenance Due Date Last Done Comments [...] this encounter Medical Devices Implanted Type Area Resource Conservationist Device Identifier Shelf Expiration Date Model / Serial / Lot Stent Cortez 3.50x34 [employer] Rx - [id number] Implanted:Qty: 1 on 10/31/2024 [place] Juan Manuel Ellis [place] [facility] [place] [employer] [place] [id number] 05/04/2027 [id number] UX / / [id number] documented as of this encounter Advance Directives [...] the patient have Health Care Power of New Client Banking Services Clerk? Yes, not currently available Healthcare Agents on File Name Relationship Healthcare Agent Relationshi p Communication [facility] Child Health Care Repr esentative (appointed verbally by patient or by statute hierarchy) Care Teams Yard General Car Supervisor Relationship Specialty Start Date End Date Kumar Anders DO [address] [place] [address] PCP - General 12/14/07 documented as of this encounter
--- OUTSIDE RECORDS SUMMARY | 2024-11-09 15:27 | External Medical Summary | Summary of Care ---
Author Name Unknown Organization [facility] Address [address] [place] [address] Phone [phone] Care Team Providers Care Design Engineering Specialist Name Role Phone Anders, Kumar Saha DO Primary Care Provider [phone] Reason for Visit * Reason Onset Date Comments [facility]: Maintenance 11/02/2024 Encounter Details Date Type Department Care Team (Late st Contact Info) Description 11/02/2024 Telephone [facility], [place] [facility] [place] [address] Elizabeth Schuster RN [facility] [place] [address] [facility]: Maintenance Allergies Active Allergy Reactions Criticality Noted Date Comments Penicillins Hives 06/19/2009 Pentobarbital Sodium 04/10/2014 documented as of this encounter (statuses as of 11/02/2024) Medications ASPIRIN 81 MG PO TABS Active [...] as of this encounter (statuses as of 11/02/2024) Active Problems Problem Noted Date Diagnosed Date [...] - LEXY o Class D - Inhaled Ndmrtpihhmjfky-NHSY-BITM Combination Inhaler (Trellegy) Self-Management plan o High [...] on file. [facility] Coronary atherosclerosis of [place] coronary [place] ry 08/28/2011 BMI 35-39 ISOLATED (SEE ACTUAL BMI) 04/19/2010 Overview (04/19/2010): Per Obesity Protocol, #19 SANJAY (obstructive sleep apnea) Assessment & Plan (04/18/2023 2:15 PM EDT): Refuses CPAP documented as of this encounter (statuses as of 11/02/2024) Resolved Problems Problem Noted Date Diagnosed Date Resolved Date Complicated UTI (urinary tract infection) 10/30/2024 10/30/2024 documented as of this encounter (statuses as of 11/02/2024) Immunizations Name Administration Dates Next Due COVID-19 [...] encounter Miscellaneous Notes * Telephone Encounter - Elizabeth Schuster RN - 11/02/2024 4:18 PM EST Call to family to re-schedule Sundays new enrollment visit to Monday next week. No answer, left message to call [facility] to set up Enrollment visit. MALLORY Colmenares Registered Nurse Navigator Triage [facility] documented in this encounter Plan of Treatment Upcoming Encounters Date Type Department Care Team (Late st Contact Info) Description 11/03/2024 11:30 AM EST Scheduled Telephone [facility], [address] [place] [address] [facility], Nurse [address] [place] [address] 11/04/2024 10:00 AM EST [facility] Visit [facility], [facility] [address] [facility] [place] [address] Estefani Gomez RN [facility] [place] [address] 12/03/2024 1:00 PM EST [facility] Visit [facility], [facility] [address] [facility] [place] [address] Mateo Irving PA-C [address] [facility] [place] [address] 06/26/2025 8:15 AM EDT Office Visit Ophthalmology, [place] [address] [place] [address] David Wang MD [address] [place] [address] Health Maintenance Due Date Last Done Comments Diabetic Foot Exam 1963 Hepatitis C Screening 1963 Zoster Vaccines (1 of 2) 1997 *ADVANCE DIRECTIVE NOT ON FILE 03/19/2015 Albumin/Creatinine Ratio 01/13/2016 01/12/2015 DISCUSS TOBACCO CESSATION (REFER TO SMARTSET #3291) 05/24/2024 05/24/2023, 04/22/2022, 09/24/2018, Additional history exists COVID-19 Vaccine ( season) 2024 10/19/2021, 02/23/2021, 02/05/2021 HbA1c 04/30/2025 10/30/2024, 01/2019, 12/10/2018, Additional history exists Diabetic Eye Exam [...] this encounter Medical Devices Implanted Type Area Critical Care Unit Nurse Device Identifier Shelf Expiration Date Model / Serial / Lot Stent Cortez 3.50x34 [place] Rx - [id number] Implanted:Qty: 1 on 10/31/2024 by Juan Manuel Ellis MD [place] [facility] [place] [employer] [place]ASCULAR [id number] 05/04/2027 [id number] / / [id number] documented as of this encounter Advance Directives [...] the patient have Health Care Power of Production Operations Inspector? Yes, not currently available Healthcare Agents on File Name Relationship Healthcare Agent Relationshi p Communication [facility] Repr esentative (appointed verbally by patient or by statute hierarchy) Care Teams Design Engineering Specialist Relationship Specialty Start Date End Date Kumar Anders DO [address] [place] [address] PCP - General 12/14/07 documented as of this encounter
--- OUTSIDE RECORDS SUMMARY | 2024-11-09 15:27 | External Medical Summary | Summary of Care ---
Author Name Unknown Organization [facility] Address [address] [place] [address] Phone [phone] Care Team Providers Care Photo Colorer Name Role Phone Kumar Anders DO Primary Care Provider [phone] Reason for Visit * Reason Comments Cardiac Rehab I was unable to spea k to Adam Hayes during his recent admission regarding his referral for phase II cardiac rehab. I mailed Adam Hayes a packet of information explaining the program and benefits of participating. The packet also contains instructions on how to enroll in his local hospital should he decide to participate in the future. Encounter Details Date Type Department Care Team (Late st Contact Info) Description 11/05/2024 Documentation [facility] [address] [place] [address] Susan Marcial, MS Allergies Active Allergy Reactions Criticality Noted Date Comments Penicillins Hives 06/19/2009 Pentobarbital Sodium 04/10/2014 documented as of this encounter (statuses as of 11/05/2024) Medications ASPIRIN 81 MG PO TABS Active [...] 11 11/01/2024 9:44 AM EST 4 Active Sertraline HCl 25 MG Oral Tablet (Zoloft) Take 1 Tablet by mouth in the morning. Active documented as of this encounter (statuses as of 11/05/2024) Active Problems Problem Noted Date Diagnosed Date [...] - LEXY o Class D - Inhaled Lheosyilqtfgal-BMEM-DHTG Combination Inhaler (Trellegy) Self-Management plan o High [...] on file. [facility] Coronary atherosclerosis of [place] coronary [place] ry 08/28/2011 BMI 35-39 ISOLATED (SEE ACTUAL BMI) 04/19/2010 Overview (04/19/2010): Per Obesity Protocol, #19 SANJAY (obstructive sleep apnea) Assessment & Plan (04/18/2023 2:15 PM EDT): Refuses CPAP documented as of this encounter (statuses as of 11/05/2024) Resolved Problems Problem Noted Date Diagnosed Date Resolved Date Complicated UTI (urinary tract infection) 10/30/2024 10/30/2024 documented as of this encounter (statuses as of 11/05/2024) Immunizations Name Administration Dates Next Due COVID-19 [...] 11/04/2024 Does the household have a re lar [...] Burt Adamson RN documented in this encounter Plan of Treatment Upcoming Encounters Date Type Department Care Team (Late st Contact Info) Description 12/03/2024 1:00 PM EST [facility] [address] [place] [address] Mateo Irving PA-C [address] [place] [address] 12/19/2024 10:00 AM EST [facility] Visit [facility] [address] [place] [address] Estefani Gomez RN [address] [place] [address] 06/26/2025 8:15 AM EDT Office Visit Ophthalmology, [place] [address] [place] [address] David Wang MD [address] [place] [address] Health Maintenance Due Date Last Done Comments Diabetic Foot Exam 1963 Hepatitis C Screening 1963 Zoster Vaccines (1 of 2) 1997 *ADVANCE DIRECTIVE NOT ON FILE 03/19/2015 Albumin/Creatinine Ratio 01/13/2016 01/12/2015 DISCUSS TOBACCO CESSATION (REFER TO SMARTSET #3291) 05/24/2024 05/24/2023, 04/22/2022, 09/24/2018, Additional history exists COVID-19 Vaccine ( season) 2024 10/19/2021, 02/23/2021, 02/05/2021 HbA1c 04/30/2025 10/30/2024, 09/0 01/2019, 12/10/2018, Additional history exists Diabetic Eye [...] this encounter Medical Devices Implanted Type Area Radiation Protection Specialist Device Identifier Shelf Expiration Date Model / Serial / Lot Stent [place] 3.50x34 [employer] [facility] - [id number] Implanted:Qty: 1 on 10/31/2024 by Juan Manuel Ellis MD at [facility] [place] [employer] : VASCULAR [id number] 05/04/2027 [id number] / / [id number] documented as of this encounter Advance Directives [...] the patient have Health Care Power of [place] Supervisor? Yes, not currently available Healthcare Agents on File Name Relationship Healthcare Agent [facility] Communication [facility] Repr esentative (appointed verbally by patient or by statute hierarchy) Care Teams Photo Colorer Relationship Specialty Start Date End Date Kumar Anders DO [address] [place] [address] PCP - General 12/14/07 documented as of this encounter
--- OUTSIDE RECORDS SUMMARY | 2024-11-09 15:27 | External Medical Summary | Summary of Care ---
Author Name Unknown Organization [facility] Address [address] [place] [address] Phone [phone] Care Team Providers Care Hospice Coordinator Name Role Phone Anders, Kumar Saha DO Primary Care Provider [phone] Reason for Visit * Reason Comments Cardiac Rehab Encounter Details Date Type Department Care Team (Late st Contact Info) Description 11/05/[address] [facility] [address] [place] [address] Susan Marcial, MS Allergies Active [...] - LEXY o Class D - Inhaled Fbhktezsqoqjwi-XEIN-XZBB Combination Inhaler ([facility]) Self-Management plan o High frequency nebulizer treatments [...] on file. [facility] Coronary atherosclerosis of [place] coronary [place] ry 08/28/2011 BMI 35-39 ISOLATED [...] of Assessment Author Yes 10/29/2024 11:28 PM EST Burt Watkins RN documented as of this encounter Mental Status * Because of a physical, mental, or emotional condition, do you have serious difficulty concentrating, remembering, or making decisions? (5 years old or older) Answer Entry Date Author Yes 10/29/2024 11:28 PM Burt Adamson RN documented in this encounter Nursing Notes * Susan Marcial MS - 11/05/2024 9:09 AM EST I was unable to speak to Adam Hayes during his recent admission regarding his referral for phase II cardiac rehab. I mailed Adam Hayes a packet of information explaining the program and benefits of participating. The packet also contains instructions on how to enroll in his local hospital should he decide to participate in the future. documented in this encounter Plan of Treatment Upcoming Encounters Date Type Department Care Team (Late st Contact Info) Description 12/03/2024 1:00 PM EST [facility] [address] [address] Mateo Irving PA-C [address] [place] [address] 12/19/2024 10:00 AM EST [facility] [address] [address] Estefani Gomez, RN [address] [place] [address] 06/26/2025 8:15 AM EDT Office Visit [place] [address] David Wang MD [address] [place] [place] [address] Health Maintenance Due Date Last Done Comments Diabetic Foot Exam 1963 Hepatitis C Screening 1963 Zoster Vaccines (1 of 2) 1997 *ADVANCE DIRECTIVE NOT ON FILE 03/19/2015 Albumin/Creatinine Ratio 01/13/2016 01/12/2015 DISCUSS TOBACCO CESSATION (REFER TO SMARTSET #6060) 05/24/2024 05/24/2023, 04/22/2022, 09/24/2018, Additional history exists [...] this encounter Medical Devices Implanted Type Area Biomedical Engineering Director Device Identifier Shelf Expiration Date Model / Serial / Lot Stent South Heart 3.50x34 [place] [facility] - [id number] Implanted:Qty: 1 on 10/31/2024 by Juan Manuel Ellis MD at [facility] [place] [employer] [place]ASCULAR [id number] 05/04/2027 [id number] UX / / [id number] documented as of this encounter Advance Directives [...] the patient have Health Care Power of Supervisor Lump Room? Yes, not currently available Healthcare Agents on File Name Relationship Healthcare Agent Relationshi p Communication Cheli Trinidad Adult Child Health Care Repr esentative (appointed verbally by patient or by statute hierarchy) Care Teams Hospice Coordinator Relationship Specialty Start Date End Date Kumar Anders DO [address] [place] [address] PCP - General 2/8/08 documented as of this encounter
--- OUTSIDE RECORDS SUMMARY | 2024-11-09 15:27 | External Medical Summary | Summary of Care ---
Author Name Unknown Organization [facility] Address [address] [place] [address] Phone [phone] Care Team Providers Care Cell Manager Name Role Phone Anders, Kumar Saha DO Primary Care Provider [phone] Reason for Visit * Reason Onset Date Comments Appointment 11/07/2024 Encounter Details Date Type Department Care Team (Late st Contact Info) Description 11/07/2024 Telephone [facility] [place] [address] [place], [place] [id number] Azael, Joseph, SANJAY [address] [place], [place] [phone] Appointment Allergies Active Allergy Reactions Criticality Noted [...] - LEXY o Class D - Inhaled Aiiocgsobinlcl-WFLK-ALBW Combination Inhaler (Trellegy) Self-Management plan o High [...] on file. [facility]CP [facility] Coronary atherosclerosis of [place] coronary [place] ry 08/28/2011 BMI 35-39 ISOLATED [...] No 11/04/2024 Does the household have a [facility] source of income? (Household - for [...] Encounter - Joseph Addison OSA - 11/07/2024 11:06 AM EST Dashboard request to schedule JULITO 3 with Kana Irving and JULITO 4 with [facility]. TT sent to Aristides regarding appt availability. EMMANUEL was told to schedule pt 11/15 in return slot but stated pt will be seen between and . Appt scheduled 11/21 with [facility]. Called and spoke with Bambi who confirmed appts. documented in this encounter Plan of Treatment Upcoming Encounters Date Type Department Care Team (Late st Contact Info) Description 11/15/2024 3:00 PM EST [facility] Visit [facility] [address] [place] [address] Mateo Irving PA-C [address] [place] [address] 11/21/2024 12:50 PM EST Home Visit Care Coordination and Integration [address] [place] [address] Stephenie Witt Community Health Operations Manager [address] [place] [address] 12/03/2024 1:00 PM EST [facility] Visit [facility] 132 [facility] [place] [address] Mateo Irving PA-C [address] [place] [address] 12/19/2024 10:00 AM EST Home Visit [facility], [facility] [address] [place] [address] Estefani Gomez, RN [address] [place] [address] 06/26/2025 8:15 AM EDT Office Visit Ophthalmology, [place] [address] [address] David Wang MD 21 [facility] [place] [address] Health Maintenance Due Date Last Done Comments [...] this encounter Medical Devices Implanted Type Area Bookkeeping Machine Operator Device Identifier Shelf Expiration Date Model / Serial / Lot Stent Cortez 3.50x34 [place] [facility] - [id number] Implanted:Qty: 1 on 10/31/2024 by Juan Manuel Ellis [place] [facility] [place] [employer] [place] [id number] 05/04/2027 [id number] UX / / [id number] documented as of this encounter Advance Directives [...] the patient have Health Care Power of Indian Trader? Yes, not currently available Healthcare Agents on File Name Relationship Healthcare Agent Relationshi p Communication Cheli [facility] Child [facility] Repr esentative (appointed verbally by patient or by statute hierarchy) Care Teams Cell Manager Relationship Specialty Start Date End Date Kumar Anders DO [address] [place] [address] PCP - General 12/14/07 documented as of this encounter
--- OUTSIDE RECORDS SUMMARY | 2024-11-09 15:28 | External Medical Summary | Summary of Care ---
Author Name Unknown Organization [facility] Address [address] [place] [address] Phone [phone] Care Team Providers Care Research Recruiter Name Role Phone Chago Kumar Saha DO Primary Care Provider [phone] Encounter Details Date Type Department Care Team (Late st Contact Info) Description 11/01/2024 Documentation [facility] [place] [address] [place] [address] Lashanda Souza RN [address] [facility] [place] [address] Allergies Active Allergy Reactions Criticality Noted Date Comments Penicillins Hives 06/19/2009 Pentobarbital Sodium 04/10/2014 documented as of this encounter (statuses as of 11/01/2024) Medications Brilinta 90 MG Oral Tablet (Ticagrelor) Take 1 Tablet by mouth in the morning and 1 Tablet before bedtime. Do not start before November 01, 2024. 60 Tablet 11 4 9:44 AM EST 11/01/20 24 Active Atorvastatin Calcium 80 MG Oral Tablet (Lipitor) Take 1 Tablet by mouth every morning. 30 Tablet 3 4 9:44 AM EST 11/01/20 24 025 Active Carvedilol 6.25 MG Oral Tablet (Coreg) Take 1 Tablet by mouth two times per day (morning & before bedtime). 68 Tablet 11 4 9:44 AM EST 11/01/20 24 Active ASPIRIN 81 MG PO TABS Suspended Hydrocodone-Acet aminophen 10-325 MG per tablet Take 1 Tablet by mouth every 4 hours as needed. 0 06/25/20 15 Suspended lisinopril (PRINIVIL) 5 MG Tablet Take 1 Tablet by mouth in the morning. 5 06/15/20 15 Suspended nitroglycerin (NITROSTAT) 0.4 MG SUBL Suspended metFORMIN (GLUCOPHAGE) 500 MG Tablet Take 1 Tablet by mouth daily with breakfast. 5 12/01/19 17 Suspended Respiratory Therapy Supplies KIT NetDragon airfit mask w/head gear, supply tubing, filter, non-disposable filter, cushion DX G 47.33 1 Kit 11 09/08/20 17 Suspended Additional Information Patient not taking.Reported on 10/29/2024 albuterol (VENTOLIN HFA) 108 (90 BASE) MCG/ACT inhalerIndicatio ns:COPD, moderate (HCC) Inhale 2 Puffs by mouth every 4 hours as needed for Cough, Shortness of Breath, Wheezing or Dyspnea. 1 Inhaler 11 09/24/20 18 Suspended oxygen IN GAS Continue 3L Oxygen at night daily, discontinue oxygen during daytime. 1 Each 04/22/20 22 Suspended Dexilant 60 MG Oral Capsule Delayed ReleaseIndicatio ns:HTN, goal below 140/90 Take 1 Capsule by mouth in the morning. 30 Capsule 03/29/20 23 Suspended Additional Information Patient not taking.Reported on 10/29/2024 Roflumilast 500 MCG Oral Tablet (Daliresp)Indica tions:HTN, goal below 140/90 Take 1 Tablet by mouth in the morning. 30 Tablet 03/29/20 23 Suspended Ciprofloxacin HCl 0.3 % Ophthalmic Solution Instill 1 Drop into both eyes in the morning and 1 Drop at noon and 1 Drop in the evening and 1 Drop before bedtime. 5 mL 1 03/30/20 23 Suspended Albuterol Sulfate (2.5 MG/3ML) 0.083% Inhalation Nebulization Solution (Proventil) Inhale 1 Vial via nebulizer every 4 hours as needed for Wheezing. 360 mL 1 04/17/20 23 Suspended Gabapentin 400 MG Oral Capsule (Neurontin) TAKE 1 CAPSULE BY MOUTH BEFORE BED 90 Capsule 1 07/02/20 23 Suspended Additional Information Patient not taking.Reported on 10/29/2024 Acetaminophen 500 MG Oral Tablet (Tylenol) Take 1 Tablet by mouth every 6 hours as needed. Suspended Fluticasone-Umec lidin-Vilant 100-62.5-25 MCG/ACT Aerosol Powder Breath Activated (Trelegy Ellipta)Indicati ons:COPD, severe (HCC) Inhale 1 Puff by mouth in the morning. 1 Each 5 08/22/20 23 Suspended Torsemide 20 MG Oral Tablet Take 2 Tablets by mouth 2 times a day in the morning and at noon. 360 Tablet 3 01/11/20 24 Suspended Sodium Chloride (Hypertonic) 5 % Ophthalmic Solution (Murtaza-128) INSTILL 1 DROP INTO THE RIGHT EYE IN THE MORNING AND 1 DROP AT NOON AND 1 DROP IN THE EVENING AND 1 DROP BEFORE BEDTIME. 30 mL 5 04/30/20 24 Suspended OneTouch Ultra In Vitro Strip TEST SUGAR TWICE DAILY 05/15/20 24 Suspended Citalopram Hydrobromide 10 MG Oral Tablet (CeleXA) Take 1 Tablet by mouth in the morning. Suspended documented as of this encounter (statuses as of 11/01/2024) Active Problems Problem Noted Date Diagnosed Date [...] - LEXY o Class D - Inhaled Ukuhnpsshwhzcl-JHYG-SZKQ Combination Inhaler (Edllegy) Self-Management plan o High [...] on file. [facility] Coronary atherosclerosis of [place] coronary [place] ry 08/28/2011 BMI 35-39 ISOLATED (SEE ACTUAL BMI) 04/19/2010 Overview (04/19/2010): Per Obesity Protocol, #19 SANJAY (obstructive sleep apnea) Assessment & Plan (04/18/2023 2:15 PM EDT): Refuses CPAP documented as of this encounter (statuses as of 11/01/2024) Resolved Problems Problem Noted Date Diagnosed Date Resolved Date Complicated UTI (urinary tract infection) 10/30/2024 10/30/2024 documented as of this encounter (statuses as of 11/01/2024) Immunizations Name Administration Dates Next Due COVID-19 [...] No 07/12/2024 Are you (or your family) amrando eless or worried that you might be [...] of Assessment Author No 10/29/2024 11:28 PM EST WillBurt RN * Are you blind or do you have serious difficulty seeing, even when wearing glasses? Answer Date of Assessment Author Yes 10/29/2024 11:28 PM SHILPI WillBurt RN * Do you have serious difficulty [...] documented in this encounter Progress Notes * Lashanda Souza RN - 11/01/2024 11:59 AM EST [facility] Care Logistics And Planning Manager Subjective: Patient and daughter seen at bedside. Looking forward to going home today. Scheduled [facility] enrollment home visits. Patient and daughter requesting phone call prior to home visits to ensure dogs are secured prior to arriving to home. Noted on appointment. Care Logistics And Planning Manager Documentation The patient's case been reviewed with: IP Health Care Team, OP Health Care Team Care Logistics And Planning Manager Plan: Transition of [facility] visit scheduled with [facility], Collaboration with IP/OP teams Discharge Disposition: Home documented in this encounter Plan of Treatment Upcoming Encounters Date Type Department Care Team (Late st Contact Info) Description 11/03/2024 1:00 PM EST [facility] Visit [facility], [address] [place] [address] [facility], Nurse [facility] [address] [place] [address] 12/03/2024 1:00 PM EST [facility] Visit [facility] [address] [place] [address] Mateo Irving PA-C [address] [place] [address] 06/26/2025 8:15 AM EDT Office Visit Ophthalmology, [place] [address] [address] David Wang MD [address] [place] [address] Health Maintenance Due Date Last Done Comments [...] this encounter Medical Devices Implanted Type Area Buyer Intern Device Identifier Shelf Expiration Date Model / Serial / Lot Stent Cortez 3.50x34 [place] [facility] - [id number] Implanted:Qty: 1 on 10/31/2024 by Juan Manuel Ellis MD at [facility] [place] [employer] : VASCULAR [id number] 05/04/2027 [id number] UX / / [id number] documented as of this encounter Advance Directives * Full Code (Latest Code Status on File) Date Activated Date Inactivated Comments 10/29/2024 10:36 PM This order r eflects the patients [...] the patient have Health Care Power of Maxillofacial Prosthodontist? Yes, not currently available Healthcare Agents on File Name Relationship Healthcare Agent Relationshi p Communication Cheli [facility] Child [facility] Repr esentative (appointed verbally by patient or by statute hierarchy) Care Teams Research Recruiter Relationship Specialty Start Date End Date Kumar Anders DO [address] [place] [address] PCP - General 12/14/07 documented as of this encounter
--- OUTSIDE RECORDS SUMMARY | 2024-11-09 15:28 | External Medical Summary ---
Author Name Unknown Address Unknown Organization : Laboratory Report Ordering Provider Test Date Status STACY BUSTILLOS 10/31/2024 15:38:30 Final NORMAL (NON-HEPARINIZED) 74- 137 SECONDS
HEPARINIZED 200+ SECONDS
CRITICAL GREATER THAN 1000 SECONDS
null Observation Date Value Abnormality Reference (Units ) Status Kaolin activated time [Units/volume] in Blood 10/31/2024 15:38:30 228 50-1000 (secs) Final Performing Location
--- OUTSIDE RECORDS SUMMARY | 2024-11-09 15:28 | External Medical Summary | Summary of Care ---
Author Name Unknown Organization [facility] Address [address] [place] [address] Phone [phone] Care Team Providers Care Restaurant Operations Manager Name Role Phone Kumar Anders DO Primary Care Provider [phone] Reason for Visit * Reason Onset Date Comments Encounter Created in Error 11/01/2024 Encounter Details Date Type Department Care Team (Late st Contact Info) Description 11/01/2024 Telephone General Internal Medicine [address] [place] [address] Madeline Barrera DO [address] [place] [address] Encounter Created in Error Allergies Active Allergy Reactions Criticality Noted Date [...] 12/01/19 17 Suspended Respiratory Therapy Supplies KIT Patterns resBakedCode airfit mask w/head gear, supply tubing, filter, non-disposable filter, cushion DX G 47.33 1 Kit 09/08/20 17 Suspended Additional Information Patient not [...] and 1 Drop before bedtime. 5 mL 03/30/20 23 Suspended Albuterol Sulfate (2.5 MG/3ML) 0.083% Inhalation Nebulization Solution (Proventil) Inhale 1 Vial via nebulizer every 4 hours as needed for Wheezing. 360 mL 1 04/17/20 23 Suspended Gabapentin 400 MG Oral Capsule (Neurontin) TAKE 1 CAPSULE BY MOUTH BEFORE BED 90 Capsule 1 07/02/20 Suspended Additional Information Patient not taking.Reported on [...] - LEXY o Class D - Inhaled Etrqndyvofovhl-VWUG-KMHZ Combination Inhaler (Trellegy) Self-Management plan o High [...] on file. [facility] Coronary atherosclerosis of [place] coronary [place] ry 08/28/2011 BMI 35-39 ISOLATED [...] Description 11/03/2024 1:00 PM EST [facility] [address] [address] [facility], Nurse [facility] [address] [address] 12/03/2024 1:00 PM EST [facility] Visit [facility] [address] [address] Mateo Irving PA-C [address] [place] [address] 06/26/2025 8:15 AM EDT Office Visit Ophthalmology, [place] [address] [address] David Wang MD [address] [address] Health Maintenance Due Date Last Done Comments [...] this encounter Medical Devices Implanted Type Area Fiscal Services Manager Device Identifier Shelf Expiration Date Model / Serial / Lot Stent [place] 3.50x34 [employer] [facility] - [id number] Implanted:Qty: 1 on 10/31/2024 by Juan Manuel Ellis MD at [facility] [place] [employer] [place] [id number] 05/04/2027 [id number] UX / / [id number] documented as of this encounter Advance Directives [...] the patient have Health Care Power of Specialty Transformer Assembler? Yes, not currently available Healthcare Agents on File Name Relationship Healthcare Agent Relationshi p Communication Cheli [facility] Child Health Care Repr esentative (appointed verbally by patient or by statute hierarchy) Care Teams Restaurant Operations Manager Relationship Specialty Start Date End Date Kumar Anders DO [address] [place], [place] [id number] PCP - General 12/14/07 documented as of this encounter
--- OUTSIDE RECORDS SUMMARY | 2024-11-09 15:28 | External Medical Summary ---
Author Name Unknown Address Unknown Organization K01:[facility] - [facility] [address] [facility] [address] Laboratory Report Ordering Provider Test Date Status LAMAR WOODRUFF 11/01/2024 04:17:00 Final Observation Date Value Abnormality Reference (Units ) Status WBC, Total 11/01/2024 04:17:00 9.63 4.00-10.80 (K/uL) Final RBC 11/01/2024 04:17:00 4.48 4.50-5.25 (M/uL) Final Hemoglobin 11/01/2024 04:17:00 13.0 Below low normal 14.0-16.8 (g/dL) Final HCT 11/01/2024 04:17:00 40.8 40.0-48.4 (%) Final MCV 11/01/2024 04:17:00 91.1 82.0-99.5 (fL) Final MCH 11/01/2024 04:17:00 29.0 27.0-34.0 (pg) Final MCHC 11/01/2024 04:17:00 31.9 32.0-36.0 (g/dL) Final RDW 11/01/2024 04:17:00 12.9 11.5-15.5 (%) Final Platelets 11/01/2024 04:17:00 157 140-400 (K/uL) Final MPV 11/01/2024 04:17:00 10.7 6.6-11.1 (fL) Final Nucleated erythrocytes/100 leukocytes [Ratio] in Blood by Automated count 11/01/2024 04:17:00 0 <=0 (/100 WBCs) Final Performing Location [facility] - [address] [place] [address]
--- OUTSIDE RECORDS SUMMARY | 2024-11-09 15:28 | External Medical Summary ---
Author Name Unknown Address Unknown Organization : Laboratory Report Ordering Provider Test Date Status STACY BUSTILLOS 10/31/2024 17:00:16 Final Observation Date Value Abnormality Reference (Units ) Status Glucose Point of Care 10/31/2024 17:00:16 180 Above high normal 70-120 (mg/dL) Final Performing Location
--- OUTSIDE RECORDS SUMMARY | 2024-11-09 15:28 | External Medical Summary | Summary of Care ---
Author Name Unknown Organization [facility] Address [address] [place] [address] Phone [phone] Care Team Providers Care Mat Packer Name Role Phone AndersKaleb garciaomega Saha DO Primary Care Provider [phone] Encounter Details Date Type Department Care Team (Late st Contact Info) Description 10/31/2024 Documentation [facility] [place] [address] [address] Sarah Beth Lan RN [address] [facility] [place] [address] Allergies Active Allergy Reactions Criticality Noted Date Comments Penicillins Hives 06/19/2009 Pentobarbital Sodium 04/10/2014 documented as of this encounter (statuses as of 10/31/2024) Medications Brilinta 90 MG Oral Tablet (Ticagrelor) Take 1 Tablet by mouth in the morning and 1 Tablet before bedtime. Do not start before November 01, 2024. 60 Tablet 11 11/01/20 24 Active Clopidogrel Bisulfate 75 MG Oral Tablet (Plavix) Take 1 Tablet by mouth daily in the morning. Do not start before November 01, 2024. 30 Tablet 11 11/01/20 24 Active ASPIRIN 81 MG PO TABS Suspended ATORVASTATIN CALCIUM 40 MG PO TABS one daily Suspended Hydrocodone-Acet aminophen 10-325 MG per tablet Take 1 Tablet by mouth every 4 hours as needed. 0 06/25/20 15 Suspended lisinopril (PRINIVIL) 5 MG Tablet Take 1 Tablet by mouth in the morning. 5 06/15/20 15 Suspended nitroglycerin (NITROSTAT) 0.4 MG SUBL Suspended metFORMIN (GLUCOPHAGE) 500 MG Tablet Take 1 Tablet by mouth daily with breakfast. 12/01/19 17 Suspended Respiratory Therapy Supplies KIT Lelong resmed airfit mask w/head gear, supply tubing, filter, non-disposable filter, cushion DX G 47.33 1 Kit 09/08/20 17 Suspended Additional Information Patient not taking.Reported on 10/29/2024 albuterol (VENTOLIN HFA) 108 (90 BASE) MCG/ACT inhalerIndicatio ns:COPD, moderate (HCC) Inhale 2 Puffs by mouth every 4 hours as needed for Cough, Shortness of Breath, Wheezing or Dyspnea. 1 Inhaler 09/24/20 18 Suspended oxygen IN GAS Continue [...] hours as needed for Wheezing. 360 mL 04/17/20 23 Suspended Gabapentin 400 MG Oral [...] TEST SUGAR TWICE DAILY 05/15/20 24 Suspended dilTIAZem HCl ER 120 MG Oral Tablet Extended Release 24 Hour Take 120 mg by mouth in the morning. Suspended Citalopram Hydrobromide 10 MG Oral Tablet (CeleXA) Take 1 Tablet by mouth in the morning. Suspended documented as of this encounter (statuses as of 10/31/2024) Active Problems Problem Noted Date Diagnosed Date [...] - LEXY o Class D - Inhaled Uviyigovbhhevm-XOAV-CTIM Combination Inhaler (Trellegy) Self-Management plan o High [...] on file. [facility]CP [facility] Coronary atherosclerosis of [place] coronary [place] ry 08/28/2011 BMI 35-39 ISOLATED (SEE ACTUAL BMI) 04/19/2010 Overview (04/19/2010): Per Obesity Protocol, #19 SANJAY (obstructive sleep apnea) Assessment & Plan (04/18/2023 2:15 PM EDT): Refuses CPAP documented as of this encounter (statuses as of 10/31/2024) Resolved Problems Problem Noted Date Diagnosed Date Resolved Date Complicated UTI (urinary tract infection) 10/30/2024 10/30/2024 documented as of this encounter (statuses as of 10/31/2024) Immunizations Name Administration Dates Next Due COVID-19 [...] documented in this encounter Progress Notes * Sarah Beth Lan RN - 10/31/2024 10:42 AM EST [facility] National Account Director Subjective: Met with patient's IP CM and then with patient and daughter at bedside. Plans for discharge to home tomorrow, pending cath. Care National Account Director Documentation The patient's case been reviewed with: Interdisciplinary Team, IP Health Care Team Care National Account Director Plan: Transition of retirement visit scheduled with [facility] Discharge Disposition: Pending documented in this encounter Plan of Treatment Upcoming Encounters Date Type Department Care Team (Late st Contact Info) Description 06/26/2025 8:15 AM EDT Office Visit Ophthalmology, [place] [phone] David Wang MD [place] [phone] Scheduled Procedures Name Priority Associated Diagnoses Date/Ti me CORONARY ANGIOGRAPHY W/LEFT HEART CATH NSTEMI (non-ST elevated myocardial infarction) (HCC) Health Maintenance Due Date Last Done Comments Diabetic Foot Exam 1963 Hepatitis C Screening 1963 Zoster Vaccines (1 of 2) 1997 Pneumococcal Vaccine: 50+ Years (2 of 2 - PCV) 08/05/2014 08/05/2013 *ADVANCE DIRECTIVE NOT ON FILE 03/19/2015 Albumin/Creatinine Ratio 01/13/2016 01/12/2015 DISCUSS TOBACCO CESSATION (REFER TO SMARTSET #3291) 05/24/2024 05/24/2023, 04/22/2022, 09/24/2018, Additional history exists COVID-19 Vaccine ( season) 2024 10/19/2021, 02/23/2021, 02/05/2021 Influenza Vaccine (FLU shot) (#1) 2024 07/08/2022, 07/22/2021, 08/06/2020, Additional history exists HbA1c 04/30/2025 10/30/2024, 09/0 01/2019, 12/10/2018, Additional history exists Diabetic Eye Exam 06/25/2025 06/25/2024, , 06/08/2023, Additional history exists Depression Screening 07/12/2025 07/12/2024 GFR 10/31/2025 10/31/2024, 10/07, 10/29/2024, Additional history exists O2 ASSESSMENT COMPLETED IN PAST YEAR FOR COPD 10/31/2025 10/31/2024 DTap/Tdap Vaccines (3 - Td or Tdap) [...] the patient have Health Care Power of Comb Tender? Yes, not currently available Healthcare Agents on File Name Relationship Healthcare Agent Relationsne p Communication [facility] Repr esentative (appointed verbally by patient or by statute hierarchy) Care Teams Mat Packer Relationship Specialty Start Date End Date Kumar Anders DO [address] [place] [address] [id number] PCP - General 12/14/07 documented as of this encounter
--- OUTSIDE RECORDS SUMMARY | 2024-11-09 15:28 | External Medical Summary ---
Author Name Unknown Address Unknown Organization : Laboratory Report Ordering Provider Test Date Status ANGIE ROBLES 11/01/2024 05:54:52 Final Observation Date Value Abnormality Reference (Units ) Status Glucose Point of Care 11/01/2024 05:54:52 113 70-120 (mg/dL) Final Performing Location
--- OUTSIDE RECORDS SUMMARY | 2024-11-09 15:28 | External Medical Summary | Summary of Care ---
Author Name Unknown Organization [facility] Address [address] [place] [address] Phone [phone] Care Team Providers Care Software Applications Architect Name Role Phone Kumar Anders DO Primary Care Provider [phone] Reason for Referral * Evaluate & Treat - Unlimited Visits (Within 10 days (routine)) - Authorized Specialty Diagnoses / Procedures Referred By Kylee campo Referred To Contact CARDIAC REHAB / Cardiology Diagnoses NSTEMI (non-ST elevated myocardial infarction) (HCC) Juan Manuel Ellis MD [address] [place] [address] Phone: tel: fax: Referral ID Status Reason Start Date Expiration Date Visits Requested Visits Authorized [id number] Authorized Specialty Services Required 4 [phone] Question Answer Referral Priority Within 10 days (routine) Where should this appointment be scheduled? [facility] Cardiac Rehabilitation Modality No Preference, either is clinically appropriate Comments Discharge Order Reason for Visit * Auth/Cert Specialty Diagnoses / Procedures Referred By Kylee campo Referred To Contact Diagnoses NSTEMI/Post cardica cath Yifan Sullivan DO [address] [place] [address] Phone: tel: fax: [facility], [facility] [address] [place] [address] Referral ID Status Reason Start Date Expiration Date Visits Re quested Visits Authorized [id number] Encounter Details Date Type Department Care Team (Late st Contact Info) Description 10/29/2024 9:41 PM EST - 11/01/2024 2:15 PM EST Hospital Encounter [facility] 8, [facility] 8th Floor [address] [place] [address] Yifan Sullivan DO [address] [place] [address] Viral Hector MD [address] [place], [place] [id number] Antonio Carlson MD [address] [place] [address] Various: KRAVS,EKG Discharge Disposition: Home - Self Care Allergies [...] daily with breakfast. 5 12/01/19 17 Active Respiratory Therapy Supplies KIT Anexon airfit mask w/head gear, supply tubing, filter, non-disposable filter, cushion DX G 47.33 1 Kit 11 09/08/20 17 Active Additional Information Patient not taking.Reported on 10/29/2024 albuterol (VENTOLIN HFA) 108 (90 BASE) MCG/ACT inhalerIndicati ons:COPD, moderate (HCC) Inhale 2 Puffs by mouth every 4 hours as needed for Cough, Shortness of Breath, Wheezing or Dyspnea. 1 Inhaler 11 09/24/20 18 Active oxygen IN GAS Continue 3L Oxygen at night daily, discontinue oxygen during daytime. 1 Each 04/22/20 22 Active Dexilant 60 MG Oral Capsule Delayed ReleaseIndicati ons:HTN, goal below 140/90 Take 1 Capsule by mouth in the morning. 30 Capsule 03/29/20 23 Active Additional Information Patient not taking.Reported on 10/29/2024 Roflumilast 500 MCG Oral Tablet (Daliresp)Indic ations:HTN, goal below 140/90 Take 1 Tablet by mouth in the morning. 30 Tablet 03/29/20 23 Active Ciprofloxacin HCl 0.3 % [...] Wheezing. 360 mL 1 04/17/20 23 Active Gabapentin 400 MG Oral Capsule (Neurontin) TAKE 1 CAPSULE BY MOUTH BEFORE BED 90 Capsule 1 07/02/20 23 Active Additional Information Patient not taking.Reported on [...] AND 1 DROP BEFORE BEDTIME. 30 mL 04/30/20 24 Active OneTouch Ultra In Vitro Strip TEST SUGAR TWICE DAILY 05/15/20 24 Active Citalopram Hydrobromide 10 MG Oral Tablet [...] 4 9:44 AM EST 11/01/20 24 Active ATORVASTATIN CALCIUM 40 MG PO TABS one daily 024 Discontinued dilTIAZem HCl ER 120 MG Oral Tablet Extended Release 24 Hour Take 120 mg by mouth in the morning. 024 Discontinued Clopidogrel Bisulfate 75 MG Oral Tablet (Plavix) Take 1 Tablet by mouth daily in the morning. Do not start before November 01, 2024. 30 Tablet 11 11/01/20 24 024 Discontinued documented as of this encounter (statuses [...] - LEXY o Class D - Inhaled [id number] Combination Inhaler (Edllegy) Self-Management plan o High [...] on file. PCP [facility] Coronary atherosclerosis of [place] coronary [place] ry 08/28/2011 BMI [...] Day Cigarettes 1.5 57 Smokeless Tobacco: Never Tobacco Cessation:Ready to Q uit: Not Asked; Counseling Given: Not Answered Comments:About 3 packs daily Alcohol Use Standard [...] on file documented as of this encounter Last Filed Vital Signs Vital Sign Reading Time Taken Comments Blood Pressure 102/79 11/01/2024 11:25 AM EST Pulse 101 11/01/2024 7:30 AM EST Temperature 36.6 C (97.8 F) 11/01/2024 1 1:25 AM EST Respiratory Rate 20 11/01/2024 7:30 AM EST Oxygen Saturation 97% 11/01/2024 11: 25 AM EST Inhaled Oxygen Concentration - - Weight 92.9 kg (204 lb 11.2 oz) 11/01/2024 7:30 AM EST Height - - Body Mass Index 31.02 01/15/2024 2:34 PM EDT documented in this encounter Functional Status * Are you deaf or do you have serious difficulty hearing? Answer Date of Assessment Author No 10/29/2024 11:28 PM EST Burt Watkins RN * Are you blind or do you have serious difficulty seeing, even when wearing glasses? Answer Date of Assessment Author Yes 10/29/2024 11:28 PM Burt Adamson RN * Do you have serious difficulty walking or climbing stairs? (5 years old or older) Answer Date of Assessment Author Yes 10/29/2024 11:28 PM EST Burt Watkins RN * Do you have difficulty dressing or bathing? (5 years old or older) Answer Date of Assessment Author Yes 10/29/2024 11:28 PM EST Burt Watkins RN * Because of a physical, mental, [...] Burt Adamson RN documented in this encounter Discharge Instructions * Discharge Instr - AVS* Nena George DO - 11/01/2024 8:03 AM EST Discharge Date: 11/01/[address] Hector of the Department of Cardiology at [phone] during business hours for any questions or test results. For after-hours emergencies call [phone] and have your doctor paged. Scheduling services is available between the hours of 8:00 am and 9:00 pm by calling . For routine questions, your [facility] Cardiology Team prefers the use of [employer]. [employer] is an online internet tool to help you meet your health care needs quickly by providing a secure, confidential way to view your health records and communicate with your [facility] Cardiology Team. To sign up for [employer] go to [email or web address], "Click" [place] [employer] on the right side of the screen and complete the user registration information. The information below provides you with the instructions and the list of medications you need to betaking following discharge from the hospital. If you have any questions, please ask before leaving.Please carry this letter with you when you see your doctor in the clinic. If you have questions, you can reach us at the numbers above. Brief summary of your inpatient care: You were admitted to the hospital on 10/29 after presenting with chest pain. Your workup was concerning for Non ST elevated Myocardial Infarction or a heart attack. You were taken for a cardiac catheterization, which is a procedure that allows doctors to look at the vessels that supply blood to your heart. They found that one of your vessels had a blockage and a stent was placed to keep it open. You will be taking several new medications which are important to keep your stent open, prevent further blockages, and optimize the function of your heart. It is important that you take these medications everyday. Do not stop taking them unless directed to do so by your Healthcare Economics Consultant. You were determined ready for discharge home on 11/01/2024. Your primary diagnosis at discharge was Non ST Elevated Myocardial Infarction Your doctors during this hospitalization included: Dr. Hector of the Department of Cardiology Inpatient test results pending: None Operations & Procedures: cardiac catheterization with stent placement Complications: none applicable Advance Directive Documented: Advance Directive Does the Patient have an Advance Directive? Not Addressed Diet: 2 gram sodium diet, Fluid restriction - 2 quarts Activity: leg puncture care: no lifting or pushing or pulling more than 10 lbs for 3 days, no strenuous activity for 7 days An appointment was requested with your Primary Care Physician (Kumar Anders DO) within 7 day(s). An appointment was requested with Cardiology in 1 month. MEDICATION CHANGES: Please START taking the following medications - Ticagrelor (Brilinta) 90 mg daily to prevent re-blockage of your stent - Carvedilol (Coreg) 6.25 mg 2 times daily for blood pressure control - Nitroglycerin (Nitro): Your should carry nitro at all times. When chest pain occurs take one nitro under tongue and call 911. You may take additional nitro every five minutes as needed for ongoing chest pain up to three pills. Lie down after using nitro. Do not drive after using nitro. Patients with chronic stable chest pain who frequently use nitro may not need to call 911. Ask your physician about this. Please note the following CHANGES to your previous medications - Atorvastatin (Lipitor) increased to 80 mg daily to lower your cholesterol Please STOP taking the following medications - Diltiazem; alternative medication prescribed Please continue taking all other medications as previously prescribed. Do not use Motrin/Ibuprofen/Advil and other types of "NSAIDs" (nonsteroidal anti-inflammatory drugs) - "NSAIDs" make aspirin ineffective, can raise blood pressure, and can damage your kidneys. Try Tylenol for pain. Consult your pharmacist for questions about "NSAIDs". Please continue taking all other medications as previously prescribed. Leg Puncture Site Care You may shower, but do not take any baths, go in a hot tub or swim for 7 days. The hole in your leg artery is still healing and may be sore for a week. You may develop a large bruise, which will travel down your leg over the next few weeks. This is normal. If you have sudden pain or swelling or bleeding, call 911 and hold pressure on the area. If you notice worsening pain or swelling in the area that is not relieved by Tylenol or if you develop a fever over 101 degrees F you should call your electrical engineering manager. If you have questions or are concerned about how your leg is healing, call the doctor who did the procedure or . Keep the site covered with a dry bandage for 24 hours then remove the bandage. You may keep the site covered until it has completely healed but it is not necessary. If you replace the bandage, it should be changed every 24 hours or if it becomes wet. Cardiovascular RISK FACTOR control YOUR RISK FACTOR TREATMENT GOALS: Controlling the factors that cause arteries to form blockages will reduce your chance of having new blockages. Work with your health care providers to control your risk factors. If you have trouble reaching these goals then ask your health care provider to work with you further until they are controlled. Diabetes - In diabetics, hemoglobin A1C is a measure of the average blood sugar over the past 3 months. The goal is less than 7.0. Your result is: 6.2. Hypertension - Goal is less than 120/80. High cholesterol LDL cholesterol (bad cholesterol) - goal is less than 70 mg/dl. HDL cholesterol (good cholesterol) - goal is greater than 40 mg/dl in men and 50mg/dl in women. Triglycerides (other blood fats that are especially elevated in diabetics and pre-diabetics) - goalis less than 150 mg/dl. Your Lipid Panel Results are: Results for orders placed or performed in visit on 12/21/21 LIPID PANEL WITHOUT DIRECT LDL Result Value Ref Range CHOLESTEROL-Outside Lab 100 0 - 200 MG/DL TRIGLYCERIDES-OUTSIDE LAB 130 0 - 150 MG/DL HDLD - OUTSIDE LAB 31 SEE COMMENT MG/DL LDL (DIRECT MEASURE)-OUTSIDE LAB 53 0 - 130 MG/DL CALCULATED VLDL - OUTSIDE LAB 26.0 SEE COMMENT MG/DL CHOL/HDL RATIO-OUTSIDE LAB 3.2 SEE COMMENT RATIO NON-HDL - OUTSIDE LAB 69 SEE COMMENT MG/DL Results for orders placed or performed during the hospital encounter of 09/12/16 LIPID PANEL WITH DIRECT LDL IF TG ABOVE 400 MG/DL Result Value Ref Range HOURS FASTING NOT PROVIDED hours Triglycerides 56 <200 mg/dL Cholesterol 105 <200 mg/dL HDL Cholesterol 48 >39 mg/dL Cholesterol-HDL Ratio 2.2 LDL Cholesterol 46 0 - 129 mg/dL LDL Cholesterol (Direct Measure) NOT APPLICABLE 0 - 129 mg/dL Tobacco - Tobacco is poison to your arteries. It will cause blockages. Continuing to smoke tobacco may lead to heart attacks, strokes, or leg amputation. You should avoid tobacco. Your goal is to notsmoke at all. Talk with your primary care provider about counseling and medications to help you stop smoking. Exercise - The [place] [employer] recommends walking 30 minutes a day most days of the week; if you have to lose weight you should walk 60-90 minutes a day. Remember that if you develop chestpain, you should stop what you are doing. Do not continue to exercise if you have chest pain. See your special activity instructions above. [place] weight - Your BMI (a measure of ideal body weight) is Body mass index is 26.11 kg/m.. Your BMI should be less than 25. Your waist size also predicts risk of heart attack: a woman's waist should be less than 35 inches and a man's waist less than 40. Maintaining your ideal body weight will help your heart, reduce blood pressure, blood sugar, and cholesterol, improve or help prevent diabetes, and improve or help prevent congestive heart failure. documented in this encounter Progress Notes * Antonia Cavazos DO - 10/31/2024 7:37 AM EST PROGRESS NOTE - CARDIOLOGY [facility]-[address] [address] Name: Adam Hayes Location: [facility] H876/[id number] Date: 10/31/2024 Time: 7:37 AM Subjective: Summary: Adam Hayes is a 79 year old male presenting to [facility] for evaluation and management of NSTEMI, transfer from [facility] s/p catheterization revealing severe subtotal occlusion of RCA. Patient has a PMHx of CAD s/p multilink stent x 2 - 2.25 x 13mm to D1, 2.0 x 8mm to D2 (2005) & DESx2 - 3.5 x 28mm followed by 2.5 x 20mm to LAD (2007), HTN, HLD, RBBB, tobacco use, COPD, SANJAY, T2DM. Interval history: No adverse events overnight. Patient states he is feeling well. Denies chest pain, shortness of breath, abdominal pain. Ready to get the procedure. Objective: Vital Signs: BP: 125 mmHg/68 mmHg (10/31/24716) Pulse: 81 (10/31/24716) Resp: 18 (10/31/24716) Temp: 36.83 C (10/31/24716) Temp Summary: Temp Min: 36.6 C (97.9 F) Max: 37 C (98.6 F) SpO2: 94 % (10/31/24716) O2 flow rate: 3 L/MIN (10/31/24716) Supplemental O2 Delivery: Nasal Cannula (10/31/24716) Intake & Output: Intake/Output Summary (Last 24 hours) at 10/31/2024 0737 Last data filed at 10/31/2024 0300 Gross per 24 hour Intake 1011.97 ml Output 1555 ml Net -543.03 ml Weight: 207.45 kg (10/30) 207.7 kg (10/29) - Date of Admission Physical Examination: General: Patient in no apparent distress HEENT: normocephalic, atraumatic Heart: regular rate; regular rhythm; S1 and S2 present; no murmurs. Pulmonary: Normal respiratory effort. +diffuse expiratory rhonchi Abdomen: Soft, non-tender, non-distended. Normal bowel sounds and no rebound or guarding. Extremities: No pitting edema present at lower extremity bilaterally Skin: [place], warm, dry. Neuro: AAOx3. Psych: Appropriate mood and affect Laboratory Values: reviewed Trop 167 < 168 Sodium 139 Potassium 3.4 BUN 16 Creatinine 0.8 Hemoglobin 12.7 Platelets 155 Recent Cultures (2 Weeks) No lab values to display. Cardiac Studies: reviewed Transthoracic echocardiogram (10/29/2024) - From [facility] The left ventricle is normal in size. There is a moderate concentric left ventricular hypertrophy. There is a moderate size inferior and posterior wall motion abnormality with hypokinesis of the segments. Left ventricular ejection fraction = 55-60% Grade 1 diastolic dysfunction Aortic valve sclerosis moderate, without significant aortic valvular stenosis. There is moderate right ventricular hypertrophy In comparison to prior study of 07/21/2024, wall motion abnormalities are now present oPatch 08/30/2024 Patient had a min HR of 35 bpm, max HR of 190 bpm, and avg HR of 90 bpm. Predominant underlying rhythm was Sinus Rhythm. First Degree AV Block was present. 2 Ventricular Tachycardia runs occurred, the run with the fastest interval lasting 4 beats with a max rate of 190 bpm, the longest lasting 7 beats with an avg rate of 111 bpm. Second Degree AV BlockMobitz I (Wenckebach) was present. Isolated SVEs were rare (<1.0%), SVE Couplets were rare (<1.0%), and no SVE Triplets were present. Isolated VEs were rare (<1.0%, 32151), VE Couplets were rare (<1.0%, 287), and VE Triplets were rare (<1.0%, 1). Ventricular Bigeminy and Trigeminy were present Radiographic Studies: reviewed No imaging results in the last 72 hours Impression and Plan: Principal Problem: NSTEMI (non-ST elevated myocardial infarction) ([facility]) (POA: Yes) Active Problems: HTN, goal below 140/90 (POA: Yes) Type 2 diabetes mellitus with hemoglobin A1c goal of less than 7.0% ([facility]) (POA: Yes) Dyslipidemia, goal to be determined (POA: Yes) Coronary atherosclerosis of [place] coronary artery (POA: Yes) SANJAY (obstructive sleep apnea) (POA: Yes) Tobacco abuse (POA: Yes) RBBB (right bundle branch block) (POA: Yes) COPD, group D, by GOLD 2017 classification ([facility]) (POA: Yes) Type 2 diabetes mellitus with diabetic peripheral angiopathy without gangrene ([facility]) (POA: Yes) Marijuana smoker (POA: Yes) Resolved Problems: * No resolved hospital problems. * POA = Present On Admission Adam Hayes is a 79 year old male with PMHx significant for CAD s/p multilink stent x2 to D1&D2 (2005) & KACY to LAD (2007), tobacco use who is admitted for NSTEMI s/p [facility] finding severe subtotal occlusion in RCA as culprit lesion and moderate instent restenosis in the LAD and occlusionin diagonal branches. Patient was transferred here as he is requiring intracoronary lithotripsy of large RCA lesion requiring CT surgery backup. #NSTEMI Hx of CAD s/p multilink stent x2 to D1&D2 (2005) & KACY to LAD (2007) Severe subtotal RCA occlusion Moderate LAD in stent restenosis HDS. No CP / SOB. Able to lay flat without issue. ASA 81 qd Hold ACCOUNT ASSOCIATE diltiazem 120 Continue ACCOUNT ASSOCIATE Lisinopril 5mg daily Continue Lipitor 80mg QD Avoid nitrates in the setting of RCA lesion. Continue to monitor on telemetry. Continue ACCOUNT ASSOCIATE Torsemide 40mg BID Tentative plan for cardiac catheterization with intracoronary lithotripsy today Chronic Problems: COPD: Continue ACCOUNT ASSOCIATE Treley Ellipta, 3L QHS T2DM: LDSSI, hold ACCOUNT ASSOCIATE Metformin Mood disorder: Continue ACCOUNT ASSOCIATE Celexa Misc: Diet: NPO except meds for procedure Bowel Regimen: none Sleep: No sleep protocol ordered Huggins: Not indicated at this time PT/OT: not indicated at this time GI prophylaxis: Not indicated at this time VTE Prophylaxis: Heparin gtt Code Status: FULL Anticipated Discharge: possible discharge tomorrow pending cath Patient will be seen and examined by attending physician, Yifan Sullivan DO Cosigned by Yifan Sullivan DO at 10/31/2024 9:36 AM EST Associated attestation - Yifan Sullivan DO - 10/31/2024 9:36 AM EST I saw and evaluated the patient today. I have reviewed the resident/fellow physician note and agree. Stable interval, no symptoms of angina or dyspnea. + expiratory rhonchi and wheezing still remain, this reflects his chronic lung disease. Will send for cath today w/RCA PCI. Healy check ticagrelor for DAPT. Stressed importance of aspirin and antiplatelet therapy in his recovery. * Yifan Sullivan DO - 10/30/2024 8:00 AM EST PROGRESS NOTE - CARDIOLOGY [address] [address] Name: Adam Hayes Location: [facility] H876/[id number] Date: 10/30/2024 Time: 8:00 AM Subjective: Summary: Adam Hayes is a 79 year old male presenting to [facility] for evaluation and management of NSTEMI, transfer from [facility] s/p catheterization revealing severe subtotal occlusion of RCA. Patient has a PMHx of CAD s/p multilink stent x 2 - 2.25 x 13mm to D1, 2.0 x 8mm to D2 (2005) & DESx2 - 3.5 x 28mm followed by 2.5 x 20mm to LAD (2007), HTN, HLD, RBBB, tobacco use, COPD, SANJAY, T2DM. Interval history: No adverse events overnight. Patient states he feels well. Denies any chest pain, shortness of breath, abdominal pain, nausea, vomiting. Does endorse some lower back pain. Objective: Vital Signs: BP: 118 mmHg/87 mmHg (10/30/24702) Pulse: 101 (10/30/24702) Resp: 18 (10/30/24702) Temp: 36.5 C (10/30/24702) Temp Summary: Temp Min: 36.5 C (97.7 F) Max: 36.7 C (98.1 F) SpO2: 93 % (10/30/24702) O2 flow rate: 3 L/MIN (10/30/24733) Supplemental O2 Delivery: Nasal Cannula (10/30/24733) Intake & Output: Intake/Output Summary (Last 24 hours) at 10/30/2024 0800 Last data filed at 10/30/2024 0717 Gross per 24 hour Intake 14.38 ml Output 200 ml Net -185.62 ml Weight: 207.45 kg (10/30) 207.7 kg (10/29) - Date of Admission Physical Examination: General: Patient in no apparent distress HEENT: normocephalic, atraumatic Heart: regular rate; regular rhythm; S1 and S2 present; no murmurs. Pulmonary: Normal respiratory effort. +diffuse rhonchi Abdomen: Soft, non-tender, non-distended. Normal bowel sounds and no rebound or guarding. Extremities: No pitting edema present at lower extremity bilaterally Skin: [place], warm, dry. Neuro: AAOx3. Psych: Appropriate mood and affect Laboratory Values: reviewed Trop 167 < 168 LDL 69 TG 88 Cholesterol 138 A1c 6.2 Hemoglobin 13.1 Recent Cultures (2 Weeks) No lab values to display. Cardiac Studies: reviewed Transthoracic echocardiogram (10/29/2024) - From [facility] The left ventricle is normal in size. There is a moderate concentric left ventricular hypertrophy. There is a moderate size inferior and posterior wall motion abnormality with hypokinesis of the segments. Left ventricular ejection fraction = 55-60% Grade 1 diastolic dysfunction Aortic valve sclerosis moderate, without significant aortic valvular stenosis. There is moderate right ventricular hypertrophy In comparison to prior study of 07/21/2024, wall motion abnormalities are now present oPatch 08/30/2024 Patient had a min HR of 35 bpm, max HR of 190 bpm, and avg HR of 90 bpm. Predominant underlying rhythm was Sinus Rhythm. First Degree AV Block was present. 2 Ventricular Tachycardia runs occurred, the run with the fastest interval lasting 4 beats with a max rate of 190 bpm, the longest lasting 7 beats with an avg rate of 111 bpm. Second Degree AV BlockMobitz I (Wenckebach) was present. Isolated SVEs were rare (<1.0%), SVE Couplets were rare (<1.0%), and no SVE Triplets were present. Isolated VEs were rare (<1.0%, 63704), VE Couplets were rare (<1.0%, 287), and VE Triplets were rare (<1.0%, 1). Ventricular Bigeminy and Trigeminy were present Radiographic Studies: reviewed No imaging results in the last 72 hours Impression and Plan: Principal Problem: NSTEMI (non-ST elevated myocardial infarction) ([facility]) (POA: Unknown) Active Problems: Type 2 diabetes mellitus with hemoglobin A1c goal of less than 7.0% ([facility]) (POA: Yes) Coronary atherosclerosis of [place] coronary artery (POA: Yes) Tobacco abuse (POA: Yes) RBBB (right bundle branch block) (POA: Yes) COPD, group D, by GOLD 2017 classification ([facility]) (POA: Yes) Resolved Problems: * No resolved hospital problems. * POA = Present On Admission Adam Hayes is a 79 year old male with PMHx significant for CAD s/p multilink stent x2 to D1&D2 (2005) & KACY to LAD (2007), tobacco use who is admitted for NSTEMI s/p [facility] finding severe subtotal occlusion in RCA as culprit lesion and moderate instent restenosis in the LAD and occlusionin diagonal branches. Patient was transferred here as he is requiring intracoronary lithotripsy of large RCA lesion requiring CT surgery backup. #NSTEMI Hx of CAD s/p multilink stent x2 to D1&D2 (2005) & KACY to LAD (2007) Severe subtotal RCA occlusion Moderate LAD in stent restenosis HDS. No chest pain or shortness of breath. ASA 81 qd Hold ACCOUNT ASSOCIATE diltiazem 120 Continue ACCOUNT ASSOCIATE Lisinopril 5mg daily Continue Lipitor 80mg QD Avoid nitrates in the setting of RCA lesion. Continue to monitor on telemetry. Continue ACCOUNT ASSOCIATE Torsemide 40mg BID Tentative plan for cardiac catheterization with intracoronary lithotripsy NPO except meds @ [place] Chronic Problems: COPD: Continue ACCOUNT ASSOCIATE Treley Ellipta, 3L QHS T2DM: Hold ACCOUNT ASSOCIATE Metformin, start MDSSI Mood disorder: Continue ACCOUNT ASSOCIATE Celexa Misc: Diet: regular Bowel Regimen: none Sleep: No sleep protocol ordered Huggins: Not indicated at this time PT/OT: not indicated at this time GI prophylaxis: Not indicated at this time VTE Prophylaxis: Heparin gtt Code Status: FULL Anticipated Discharge: pending clinical course Patient will be seen and examined by attending physician, Yifan Sullivan DO I saw and evaluated the patient . I have reviewed the resident/fellow physician note and agree. Please see my h+p documented in this encounter H&P Notes * Yifan Sullivan DO - 10/29/2024 9:58 PM EST Images from the original note were not included. GENERAL HISTORY AND PHYSICAL EXAMINATION - CARDIOLOGY [facility]-[address] [id number] Name: Adam Hayes Location: [facility] H876/[id number] Date: 10/29/2024 Time: 11:47 PM Date of Admission: 10/29/2024 Presenting Problem: NSTEMI, transfer from [facility] s/p cath revealing severe subtotal occlusion in the very large RCA HPI: Adam Hayes is a 79 year old male with a PMHx of: CAD s/p multilink stent x 2 - 2.25 x 13mm to D1, 2.0 x 8mm to D2 (2005) & DESx2 - 3.5 x 28mm followed by 2.5 x 20mm to LAD (2007) HTN HLD RBBB Hx of CVA Tobacco use COPD SANJAY (3 L QHS) T2DM (A1c 7.1%, 07/2019) Patient presenting from [facility] where cardiac biomarkers noted to be elevated (trop I 584 -> 1271) and cardiac catheterization (10/29/2024) with the following findings: WKO-tcpqf-qhhrjmk vessel bifurcating into LAD and circumflex. There is mild to moderate calcification and no more than mild luminal irregularities LAD- this is large caliber and trans apical. There is a long stent train beginning just after the ostium and extending through the early part of the distal vessel. Arising from the stent train is a moderate-sized 1st diagonal with up prior stent. There is an ostial 99-100% occlusion of the stent. There is a 2nd diagonal which is medium to large in caliber and branching which also has ostial 99% stenosis. The stent drain itself has diffuse in stent restenosis of 20-30%. The LAD beyond the stent drain has mild scattered plaques. LCX - this is large caliber and nondominant. Travels in the AV groove where it 1st and atrial branch followed by 2 small obtuse marginal branch and then another larger atrial branch. Distally the vessel then becomes a medium caliber branching posterolateral. The circumflex and its branches have no more than scattered disease of less than 30% stenosis. RCA - this is large caliber and dominant. Diffuse calcification proximally with up to 40% stenosis.The mid segment has diffuse disease in his also calcified. 99% occluded just after the large RV marginal branch. There is also likely some bridging collateralization. The distal RCA has diffuse less than 30% stenosis and then bifurcates into the PDA and posterolateral branches. PDA is large as is the posterolateral which itself has several branches. There is scattered mild less than 30% stenosis in the PDA and posterolateral branches. Of note, a small distal branch fills via left to right collateralization. Summary: Patent prior stents with mild to moderate InStent restenosis in the LAD and occlusion in the diagonal branches. Severe subtotal occlusion in the very large RCA with significant calcification and ectasia. This isculprit for recent non ST elevation OR Recommend PCI of the RCA. This will likely require intracoronary lithotripsy and large caliber a balloon/stents. This should be performed with CT surgery backup or at minimum air evacuation availability. HDS. Patient received ASA load and started on heparin gtt and transferred to [facility] for further intervention. Patient overall poor historian. Patient reports chest tightness that he first experienced 3 days ago. Reports the pain was mainly substernal with radiated to bilateral shoulders and associated with SOB. Denies palpitations. Chest pain started when he was sitting down smoking a cigarette and drinking his coffee. Reports chest discomfort comes and goes, lasts about 5 minutes, and resolves on its own. Chest pain not associated with exertion. Also endorses lightheadedness and dizziness with chest pain although states he gets dizzy from time to time without chest pain as well. Took nitroglycerin 1x over the weekend and that resolved chest pain. Unable to tell me if it felt similar to cardiac pain he experienced when he got previous stents placed. No swelling in lower legs. No PND. No orthopnea. Denies diaphoresis. Urinating well. Last week reports UTI treated with abx, now resolved. Compliance with medications? YES, Bambi ensures compliance. Patient denies any associated cough, fevers, chills, rigors, abdominal pain, nausea, vomitting, diarrhea, constipation, melena, hematochezia, urinary complaints, headaches, vision changes, focal neurologic defecits, and weakness. Patient able to lay flat. Patient wants to be FULL CODE at this time. Wants Bambi to make decisions for him in the setting that he is not able to make decisions for himself. Lives with Bambi, daughter . At baseline ambulates with cane. No stairs at home, lives in trailer. Reports 1PPD x 65yrs tobacco use. Reports No alcoholabuse, endorses marijuana use, no other illicit drug use. ROS otherwise negative unless mentioned in HPI. No abdominal pain, vision changes, new headache. Subjective PAST MEDICAL HISTORY: Past Medical History: Diagnosis Date Bullous keratopathy of right eye Calculus of kidney 06/2009 Renal Calculus 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 COPD (chronic obstructive pulmonary disease) (HCC) Coronary atherosclerosis of [place] coronary artery 08/28/2011 DM type 2, goal A1c below 7 08/28/2011 Ectropion LLL HTN, goal below 130/80 Hyperlipidemia LDL goal < 70 Hypoxemia Impacted cerumen INFORMATION 05/16/2015 dent left upper leg/groin/abdomen OR (myocardial infarction) (HCC) Obesity, unspecified Obstructive sleep apnea (adult) (pediatric) Percutaneous transluminal coronary angioplasty status 08/28/2011 S/P percutaneous transluminal coronary angioplasty 2006 D1 Tobacco use disorder PAST SURGICAL HISTORY: Past Surgical History: Procedure Laterality Date CATHETERIZE LEFT HEART THRU SKIN 09-01-08 Cardiac Catheterization, Left Heartx 2 stents FOOT/TOE SURGERY NEC FOREARM/WRIST SURGERY NEC ? INCISION OF COLON 10/2007 INFORMATION IOL repositionOD [place] INSERTION OF LENS PROSTHESIS LAPAROSCOPY; CHOLECYSTECTOMY 2005 MISCELLANEOUS ORDER (HS ONLY) 03/16/2006 BMS PIXEL RX Stent [facility] x 2 NASAL SURGERY PROCEDURE NEC 2006 repair of nose OTHER (INFORMATION) 09/01/[address] INTRACORONARY STENT, FIRST VS 2006 D1 REMOVE CATARACT, INSERT LENS PROSTH OS Kleinert OD [place] REMOVE TONSILS & ADENOIDS, UNDER 12 REPAIR OF NASAL SEPTUM Septoplasty RIGHT HEART CATHETERIZATION - Cardiac Catheterization, Right Heart x2 stents STRESS TREADMILL 2007 Cardiovascular Stress Test UMBIL HERNIA REPAIR (REDUCIBLE) AGE 5+YR -2008 Umbilical Hernia Repair,5+Y/O,Reduc double hernia VASECTOMY FAMILY HISTORY: non-contributory Family History Problem Relation Name Age of Onset Arthritis Brother Jono Arthritis Sister February Arthritis Mother Heart Disorder Mother OR Hypertension Mother Arthritis Father Heart Disorder Father CAD Hypertension Father Asthma Sister Marito Heart Disorder Sister Josiane Renal Hx Sister Josiane Thyroid Disorder Sister Josiane Hypertension Sister Josiane Gastro-intestinal disorder Sister Josiane Chron's Hypertension Brother Trip Asthma Sister Meghana Arthritis Brother Bassam Heart Disorder Brother Bassam Hypertension Brother Bassam SOCIAL HISTORY: Social History Tobacco Use Smoking status: Every Day Current packs/day: 1.50 Average packs/day: 1.5 packs/day for 57.0 years (85.5 ttl pk-yrs) Types: Cigarettes Smokeless tobacco: Never Tobacco comments: About 3 packs daily Vaping Use Vaping status: Never Used Substance Use Topics Alcohol use: Not Currently Comment: quit 1999 Drug use: Yes Frequency: 7.0 times per week Types: Marijuana Comment: "smokes a joint every day" PRIOR TO ADMISSION MEDS: Current Outpatient Medications Medication Instructions Acetaminophen (TYLENOL) 500 mg, Oral, Q6H PRN albuterol (VENTOLIN HFA) 108 (90 BASE) MCG/ACT inhaler 2 Puffs, Inhalation, Q4H PRN Albuterol Sulfate (PROVENTIL) 2.5 mg, Nebulizer, Q4H PRN ASPIRIN 81 MG PO TABS ATORVASTATIN CALCIUM 40 MG PO TABS one daily Ciprofloxacin HCl 0.3 % Ophthalmic Solution 1 Drop, Both eyes, QID(AM/NOON/PM/HS) Dexilant 60 mg, Oral, Daily(AM) Nqcbyhaywry-Xazebebkn-Dzhzql 100-62.5-25 MCG/ACT Aerosol Powder Breath Activated (Trelegy Ellipta) 1 Puff, Inhalation, Daily(AM) Gabapentin 400 MG Oral Capsule (Neurontin) TAKE 1 CAPSULE BY MOUTH BEFORE BED Hydrocodone-Acetaminophen 10-325 MG per tablet 1 Tablet, Oral, Q4H PRN lisinopril (PRINIVIL) 5 MG Tablet 1 Tablet, Oral, Daily(AM) metFORMIN (GLUCOPHAGE) 500 mg, Oral, BREAKFAST nitroglycerin (NITROSTAT) 0.4 MG SUBL No dose, route, or frequency recorded. OneTouch Ultra In Vitro Strip TEST SUGAR TWICE DAILY oxygen IN GAS Continue 3L Oxygen at night daily, discontinue oxygen during daytime. Respiratory Therapy Supplies KIT Med resmed airfit mask w/head gear, supply tubing, filter, non-disposable filter, cushion DX G 47.33 Roflumilast (DALIRESP) 500 mcg, Oral, Daily(AM) Sodium Chloride (Hypertonic) 5 % Ophthalmic Solution (Murtaza-128) 1 Drop, Right eye, QID(AM/NOON/PM/HS) Torsemide (DEMADEX) 40 mg, Oral, BID (0800, NOON) ALLERGIES: Pcn [penicillins] and Sodium pentobarbital [pentobarbital sodium] Review of Systems: All systems were reviewed and documented in the HPI, otherwise negative. Objective CONSTITUTIONAL DATA / OBJECTIVE: Vital Signs (Most Recent): Blood Pressure: 111/66 mmHg Last 12H: Most Recent Systolic BP Av mmHg Min: 111 mmHg Max: 111 mmHg Pulse: 84 Last 12H: Pulse Av Min: 84 Max: 84 Temperature: 36.5 C (97.7 F) Last 12H: Most Recent Temperature Av.5 C Min: 36.5 C Max: 36.5 C Respiratory Rate: 16 O2 Saturation: 93 % Vital Signs (Last 24 Hours): Pulse Av Min: 84 Max: 84 No data recorded Most Recent Systolic BP Av mmHg Min: 111 mmHg Max: 111 mmHg Most Recent Diastolic BP Av mmHg Min: 66 mmHg Max: 66 mmHg Resp Av Min: 16 Max: 16 Most Recent Temperature Av.5 C Min: 36.5 C Max: 36.5 C SpO2 Av % Min: 93 % Max: 93 % Physical Examination: General: Patient in no apparent distress, unkempt, hard of hearing HEENT: normocephalic, atraumatic, right eye with nonreactive pupil and migration upward, no carotidbruits Heart: regular rate and rhythm; S1 and S2 present; no murmurs, rubs or gallops. Pulmonary: mild diffuse expiratory wheezing Abdomen: Soft, non-tender, non-distended. Normal bowel sounds and no rebound or guarding. MSK: Patient able to ambulate; Gross motor function intact. Extremities: No pitting edema present at lower extremity bilaterally Skin: [place], warm, no wounds or lesions present. Neuro: AAOx3. No gross motor or sensory deficits. Vascular: Palpable DP/PT pulses bilaterally. Psych: Appropriate mood and affect. Laboratory Values: reviewed. -- Brief labs below include the 7 most recent results over the past week. Chemistry Panel: Lab results within last 7 days (see chart for full results) Units 10/29/24 2304 SODIUM mmol/L 139 POTASSIUM mmol/L 3.5 CHLORIDE mmol/L 98 CO2 mmol/L 27 EGFR mL/min 75 BUN mg/dL 17 CREATININE mg/dL 1.0 GLUCOSE mg/dL 127* CALCIUM mg/dL 8.6 ANION GAP mmol/L 14 Complete Blood Count: Lab results within last 7 days (see chart for full results) Units 10/29/24 2304 WBC K/uL 8.75 HGB g/dL 13.0* HCT % 39.8* PLT K/uL 165 MCV fL 91.1 Cardiac Studies: Lab results within last 7 days (see chart for full results) Units 10/29/24 2304 Troponin T, High Sensitivity ng/L 168* Cardiac Studies: Transthoracic echocardiogram (10/29/2024) - From [facility] The left ventricle is normal in size. There is a moderate concentric left ventricular hypertrophy. There is a moderate size inferior and posterior wall motion abnormality with hypokinesis of the segments. Left ventricular ejection fraction = 55-60% Grade 1 diastolic dysfunction Aortic valve sclerosis moderate, without significant aortic valvular stenosis. There is moderate right ventricular hypertrophy In comparison to prior study of 07/21/2024, wall motion abnormalities are now present Transthoracic Echocardiogram (01/28/2021) Calculated LV ejection Fraction = 64% (bi-plane method of discs). The left ventricular cavity size is normal. The LV wall thickness is mildly increased (concentric). There is no left ventricular mural thrombus. The left ventricular wall motion is normal. The left ventricular diastolic function is mildly abnormal (grade I). Moderately dilated right ventricle with normal systolic function. Compared to study dated 08/15/19, RV is now dilated. Stress echo (08/15/19) The patient was unable to walk safely on the treadmill. Stress echo was not completed. He had resting echocardiogram. Calculated LV ejection Fraction = 59% (bi-plane method of discs). The LV wall thickness is moderately increased (concentric). No LV segmental wall motion abnormalities. The left ventricular diastolic function is mildly abnormal (grade I). Nondilated cardiac chambers. The right ventricular systolic function is normal as assessed by tricuspid annular plane systolic excursion (TAPSE) (normal >1.7 cm). No significant valvular disease is present. The examination is inadequate for the evaluation of the referral indication. Recommend dobutamine stress echo [facility] 08/30/2024 Patient had a min HR of 35 bpm, max HR of 190 bpm, and avg HR of 90 bpm. Predominant underlying rhythm was Sinus Rhythm. First Degree AV Block was present. 2 Ventricular Tachycardia runs occurred, the run with the fastest interval lasting 4 beats with a max rate of 190 bpm, the longest lasting 7 beats with an avg rate of 111 bpm. Second Degree AV BlockMobitz I (Wenckebach) was present. Isolated SVEs were rare (<1.0%), SVE Couplets were rare (<1.0%), and no SVE Triplets were present. Isolated VEs were rare (<1.0%, 81733), VE Couplets were rare (<1.0%, 287), and VE Triplets were rare (<1.0%, 1). Ventricular Bigeminy and Trigeminy were present Assessment & Plan Principal Problem: NSTEMI (non-ST elevated myocardial infarction) (HCC) (POA: Unknown) Active Problems: Type 2 diabetes mellitus with hemoglobin A1c goal of less than 7.0% ([facility]) (POA: Yes) Overview: ICD-10 update of inactive term Coronary atherosclerosis of [place] coronary artery (POA: Yes) Tobacco abuse (POA: Yes) RBBB (right bundle branch block) (POA: Yes) COPD, group D, by GOLD 2017 classification ([facility]) (POA: Yes) Overview: Per COPD GOLD Classification POA = Present On Admission Adam Hayes is a 79 year old male with PMHx significant for CAD s/p multilink stent x2 to D1&D2 (2005) & KACY to LAD (2007), tobacco use who is admitted for NSTEMI s/p [facility] finding severe subtotal occlusion in the very large RCA with significant calcification and ectasia as culprit lesion. #NSTEMI Presented with symptoms of retrosternal tightness with radiation to bilateral shoulders and improves with nitroglycerine. EKG without significant ST elevations or depressions. TTE with new moderate size inferior and posterior wall motion abnormality with hypokinesis of the segments. Troponin I with significant delta 580s to 1200s. Trop now 168. EKG showing no acute ischemic changes. CXR with no acute findings. HAVEN risk score 5 points - 26% risk at 14 days of all cause mortality, new or recurrent OR or severe recurrent ischemia requiring urgent revascularization. Patient examines largely euvolemic. Anticoagulation: Received heparin load, continue heparin gtt Antiplatelets: Loaded with aspirin 325 mg, start on aspirin 81 mg daily from tomorrow. Beta blockers: hold for now ACEi/ARB: Continue ACCOUNT ASSOCIATE Lisinopril 5mg daily High-intensity statin: Continue Lipitor 80mg QD Avoid nitrates in the setting of RCA lesion. Use oxygen as needed for goal O2 saturation > 90%. Continue to trend Cardiac enzymes Q6H until peak. Will check A1c and lipid panel. Continue to monitor on telemetry. Continue ACCOUNT ASSOCIATE Torsemide 40mg BID, target euvolemia Hold ACCOUNT ASSOCIATE diltiazem Tentative plan for cardiac catheterization NPO except meds Chronic Problems: COPD: Continue ACCOUNT ASSOCIATE Treley Ellipta, 3L QHS T2DM: Hold ACCOUNT ASSOCIATE Metformin, start MDSSI Mood disorder: Continue ACCOUNT ASSOCIATE Celexa Misc: Diet: NPO except meds Bowel Regimen: none Sleep: No sleep protocol ordered Huggins: Not indicated at this time PT/OT: not indicated at this time GI prophylaxis: Not indicated at this time VTE Prophylaxis: Heparin gtt Code Status: FULL Anticipated Discharge: pending clinical course Patient discussed with Consulting Software Engineer Dr. Judah Matute and will be seen and examined by attending physician, DO Krystal Hernandez DO Resident Physician This chart was completed in part utilizing Fluid-1 Speech Voice Recognition Software. Grammatical errors, random word insertions, pronoun errors, and incomplete sentences are an occasional consequence of this system due to software limitations, ambient noise, and hardware issues. Any formal questions or concerns about the content, text, or information contained within the body of this dictation should be directly addressed to the provider for clarification. I saw and evaluated the patient today. I have reviewed the resident/fellow physician note and agree. Mr. Hayes presented in transfer for evaluation of nstemi and his coronary artery disease. He states that for several days prior to presentation he had chest heaviness, he attempted to smokea cigarrette and use marijuana noting relief, but presented to the hospital. He underwent coronary angiogram (films not immediately available for review)- but per my conversation with Dr. Collazo, his diagonal stent is totally occluded, LAD stent is patent and his RCA is a large/ectatic vessel with high degree lesion. He is now transferred for consideration of RCA PCI. Exam reveals regular heart sounds, + 3/6 systolic murmur, diminished global lung sounds and diffuserhonchi, abdomen soft and no edema. hsT elevated but flat. Impression- Nstemi History of coronary artery disease Active cigarette use Copd group D on roflumilast Hypertension Diabetes mellitus Continue heparin through cath/48 hours, continue aspirin and statin therapy. Continue maintenance diuretic. ECG reviewed- no ischemia, RBBB.LAFB. Cath tomorrow with PCI, obtain Tx. [place] films. Hopeful discharge on Monday. Inferolateral akinesis noted on echo, LV EF ~45% documented in this encounter Procedure Notes * Antonio Carlson MD - 11/01/2024 8:23 AM ESTAssociated Order(s): EKG REASON FOR STUDY: post cath CONCLUSIONS: Sinus tachycardia Left axis deviation Right bundle branch block Cannot rule out Inferior infarct Cannot rule out Anteroseptal infarct Nonspecific ST abnormality When compared with ECG of 31-Oct-2024 14:38, Minimal criteria for Anteroseptal infarct are now Present Ventricular Rate: 109 Atrial Rate: 109 MO Interval: 194 QRS Duration: 136 QT/QTc: 340/457 ms P-R-T [place]: 39 : -70 : 67 degrees * Juan Manuel Ellis MD - 10/31/2024 2:14 PM EST [facility] [id number] CARDIAC RETAINING ROOM CUTTER BRIEF PROCEDURE NOTE Name: Adam Hayes Date: 10/31/2024 Time: 2:14 PM Location: CARDIAC LABS [facility] Date of Procedure: 10/31/2024 Pre-op Diagnosis: Acute coronary syndrome Post-op Diagnosis: Coronary artery disease Procedure: IVUs, Rota arthrectomy , PCI of RCA Library Director: Dr. Ellis Anesthesia: Monitored local anesthesia with sedation Additional Findings: Subtotal occlusion of mid RCA s/p IVUS guided PCI. Rota 1.5mm kade was used to modify the calcium ,3.5x34mm [place] KACY was deployed and post dilated using 4.5mm NC balloons with excellent angiographicand IVUs results. 7F RCFA sheath left in place to be removed once ACT<180 Access: Right common femoral artery Hemostasis: Sheath placed for later removal Complications: none Condition of patient: Good Post Sedation Evaluation: Cardiovascular status: acceptable Level of consciousness: awake and alert Airway patency: patent Distress - NAD Hydration status - well hydrated Nausea/vomiting - not present Recommendations: Ticagrelor 180mg in 1 hour and then DC Cangrelor ggt ASA and Ticagrelor for at least 1 year Optimize cardiac risk factors aggressively given extent of coronary artery disease. documented in this encounter Consult Notes * Yudelka Rice, Vasu Miller [facility] - 11/01/2024 8:34 AM ESTAssociated Order(s): PHARMACY CONSULT IP PHARMACY MEDICATION TEACHING CONSULT [facility]TIPL[facility]LET THERAPY [address] [id number] Name: Adam Hayes Location: [facility] [id number] Date: 11/01/2024 Time: 8:34 AM Requesting Service: Cardiology A Patient Active Problem List Diagnosis BMI 35-39 ISOLATED (SEE ACTUAL BMI) HTN, goal below 140/90 Percutaneous transluminal coronary angioplasty status Type 2 diabetes mellitus with hemoglobin A1c goal of less than 7.0% ([facility]) Dyslipidemia, goal to be determined Coronary atherosclerosis of [place] coronary artery SANJAY (obstructive sleep apnea) Tobacco abuse Controlled substance agreement signed Acute midline low back pain without sciatica Lumbar radiculopathy Chronic back pain Chronic respiratory failure with hypoxia ([facility]) Pre-syncope [place] RBBB (right bundle branch block) Chronic rhinitis Hearing loss, mixed, bilateral COPD, group D, by GOLD 2017 classification ([facility]) Type 2 diabetes mellitus with diabetic peripheral angiopathy without gangrene ([facility]) Aortic atherosclerosis ([facility]) Marijuana smoker NSTEMI (non-ST elevated myocardial infarction) ([facility]) HLD (hyperlipidemia) Tobacco dependence syndrome Medication covered during teaching session: Ticagrelor Indication for Antiplatelet Therapy: OR and Stent Duration of Antiplatelet Therapy: 1 year Teaching points covered with patient and/or family: Route, Dosage Form and Schedule, Medication Intended Use/Action, Precautions to be Observed while using this Medication, Commonly Encountered Adverse Effects, Methods for Self- monitoring, Laboratory Monitoring, Potential Food and Drug Interactions, Therapeutic Contraindications, Prescription Refill Information, Action for a Missed Dose, and Patient Specific Information Written documentation regarding all of the teaching points was provided to the patient and/or family members present. accepted patient education handout. Outpatient antiplatelet medication supply: Patient requires a prescription for this antiplatelet medication: Patient is agreeable to using [facility] to obtain the supply. The [facility] program and the primary team has been notified. Family member(s) present: Daughter(s) Patient agreed to allow visitors to attend teaching, if present. Assessment of teaching effectiveness: Provided patient with Nehal-Comp ticagrelor drug information printout. Counseled patient on necessity of medication compliance. Counseled patient on the possible side effects with using the medication and to not stop taking the medication without first discussion it with the electrical engineering manager. Patient aware to avoid NSAIDs and use only APAP as the OTC medication ofchoice. Patient denies herbal medication usage. Patient denies alcohol consumption. Smokes marijuana Has the patient expressed potential cost concerns? No Length of teaching: Brief (less than 15 minutes) Teaching completed according to pharmacy teaching standard 508. Vasu Jha Jr [facility] documented in this encounter Nursing Notes * Holly Tuttle RN - 10/31/2024 4:56 PM EST Bedside report given to Bin Bender RN and then transported pt in bed to [facility]. Groin site checkedbefore leaving bedside. Site clean and dry. No bleeding/hematoma present. Palpable distal pulse. * Yamil Bender RN - 10/31/2024 11:14 AM EST IP TO CARDIAC INVASIVE LABS HANDOFF COMMUNICATION NOTE [address] [address] Name: Adam Hayes AGE: [age] year old Location: [facility] [place] H876/[id number] Date: 10/31/2024 Attention to: CRS Report from: Yamil Bender RN Patient arriving via: Bed Time of Call: 11:15 AM Phone Ext.: [phone] Reason for SBAR handoff: Procedure/Diagnostic/Treatment Patient able to sign Consent: Yes Female 11-55 Test Resulted if Ordered: Does not meet criteria. Emotional/Personal Anxiety? 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 Complicated UTI (urinary tract infection) 10/30/2024 COPD (chronic obstructive pulmonary disease) ([facility]) Coronary atherosclerosis of [place] coronary artery 08/28/2011 DM type 2, goal A1c below 7 08/28/2011 Ectropion LLL HTN, goal below 130/80 Hyperlipidemia LDL goal < 70 Hypoxemia Impacted cerumen INFORMATION 05/16/2015 dent left upper leg/groin/abdomen OR (myocardial infarction) ([facility]) Obesity, unspecified Obstructive sleep apnea (adult) (pediatric) Percutaneous transluminal coronary angioplasty status 08/28/2011 S/P percutaneous transluminal coronary angioplasty 2006 D1 Tobacco use disorder PSH: Past Surgical History: Procedure Laterality Date CATHETERIZE [...] OF NASAL SEPTUM Septoplasty RIGHT HEART CATHETERIZATION - Cardiac Catheterization, Right Heart x2 stents STRESS TREADMILL 2007 Cardiovascular Stress Test UMBIL HERNIA REPAIR (REDUCIBLE) AGE 5+YR -2008 Umbilical Hernia Repair,5+Y/O,Reduc double hernia VASECTOMY Isolation: Situation/Background Admission Date: 10/29/2024 Patient Service: Cardiology Med B Attending: Yifan Sullivan DO Level of Care: Med Surg [3] Assessment Vital Signs: BP: 114/82 (10/31/24 1018) Temp: 36.9 C (98.4 F) (10/31/24 1018) Pulse: 97 (10/31/24 1018) Resp: 18 (10/31/24 1018) SpO2: 96 % (10/31/24 1018) O2 flow rate: 3 L/MIN (10/31/24 1018) Glucose (Bedside): 125 (10/31/24 1200) Lines: Peripheral Line Right 20 Gauge (Active) Status Fluids infusing 10/31/24746 Tubing Changed No 10/31/24746 Phlebitis Scale 0 10/31/24746 Infiltration Scale 0 10/31/24746 Site Description (Other) Without redness, swelling or drainage 10/31/24746 Site Intervention None required 10/31/2447 Dressing Assessment Dressing clean, dry, and intact;Transparent dressing 10/31/24746 Dressing Intervention None required 10/31/2447 Number of days: 389 Labs: Please see Lab Flowsheet for lab values. Lab Comments: N/A Diet: Orders Placed This Encounter Procedures NPO After 2400 Except Meds NPO: Additional Diet Information: NPO since MN Intake and Output: Intake/Output Summary (Last 24 hours) at 10/31/2024 1115 Last data filed at 10/31/2024 1110 Gross per 24 hour Intake 609.24 ml Output 1505 ml Net -895.76 ml Belongings Remaining with Patient: None What were AM meds taken with: Water Time of last pain medication: N/A Time of last antibiotic: N/A Antiplatelets: Anticoags: Neurological: Neuro WNL: WNL - within normal limits (10/31/24 0745) Speech: Clear (10/30/24 0856) Level of Consciousness: Alert (10/30/24 0856) RUE Motor Strength: 5-Active movement with full resistance (10/30/24 0856) RLE Motor Strength: 5-Active movement with full resistance (10/30/24855) LUE Motor Strength: 5-Active movement with full resistance (10/30/24855) LLE Motor Strength: 5-Active movement with full resistance (10/30/24855) Coma Score: 15 (10/31/24744) Respiratory: Respiratory WNL: X - Exceptions to WNL as documented below (10/31/24744) Cough: Occasional;Non-Productive (10/31/24744) Depth/Rhythm: Regular (10/30/242099) Dyspnea Occurance: With Exertion (10/31/24744) Effort: Unlabored (10/30/242099) Oxygen therapy/ Mechanical vent Supplemental O2 Delivery: Nasal Cannula (10/31/241017) O2 flow rate: 3 L/MIN (10/31/241017) Cardiac: Cardiovascular WNL: WNL - within normal limits (10/31/24744) Heart Sounds: S1;S2 (10/30/24855) Rhythm: 1 degree AV Block;PVC (HR 79) (10/31/24899) MO interval: 0.25 seconds (10/31/24899) QRS: 0.11 seconds (10/31/24899) Pulses Right: Radial + (10/30/242099) Pulses Left: Radial + (10/30/242099) GI: HELP TEXT Flowsheet data - This SmartLink gives one or more specific piece(s) of flowsheet data. Usage - FLOWDATETIME[FlowsheetRecordIDs:Time:HideLabel:MyData:Disciplines:FiledOnly This SmartLink has the following user-entered parameters: 1. FlowsheetRecordIDs - (Required) A comma- list of the flowsheet row/group IDs you want to see data for. 2. Time - Determines which time column to find data from. You may enter "LAST" for the last filed data, "FIRST" to see the first filed data, or a specific time such as "0700" entered in 24-hour format. Entering a specific time will show both filed and pended values regardless of what the [employer] parameter is set to. The default value is "LAST". 3. HideLabel - Determines whether or not row labels are displayed. Leave this parameter blank or set it to "0" to display the row labels. Set this parameter to anything other than "0" to hide the labels. This parameter is ignored if a flowsheet group ID or more than one flowsheet row ID is listed in the first user-entered parameter. 4. MyData - Determines whose data is pulled in. Set this parameter to "1" to pull in data from providers that have the same discipline as the current user. Enter "2" to pull in only the current user's documentation. Parameter 4 and 5 are cumulative, so data appears if it meets a condition in eitherparameter. However, if parameter 4 is set to "0" or left blank and the current user's discipline isnot one specified in parameter 5, the current user's data is excluded. 5. Disciplines - A comma- list of provider discipline record IDs. Only pulls in data documented by the providers with disciplines listed in this parameter. 6. FiledOnly - Determines whether or not pended data is displayed. Set this parameter to "1" if youwish to hide pended data. If parameter 2 is set to a fixed time, pended data is included regardlessof this setting. Examples: .FLOWDATETIME[1 outputs the entry from flowsheet group 1. .FLOWDATETIME[5:LAST outputs the latest entry for flowsheet row 5. .FLOWDATETIME[5:FIRST outputs the earliest entry for flowsheet row 5. .FLOWDATETIME[5,6:0800 outputs the flowsheet entries for rows 5 and 6 at 8 AM. .FLOWDATETIME[5::1 outputs the flowsheet entry for row 5 without a label and linebreak. .FLOWDATETIME[5:LAST::1 outputs the latest entry for row 5 from a provider with the same disciplineas you. .FLOWDATETIME[5:FIRST::2 outputs the earliest entry for row 5 from the current user. .FLOWDATETIME[5:LAST:::1 outputs the latest entry for row 5 from a provider with a discipline of 1. .FLOWDATETIME[5:FIRST::1:1 outputs the earliest flowsheet entry for row 5 from any provider with the discipline of the current user or any provider with a discipline of 1. .FLOWDATETIME[1:::::1 outputs the last filed entry from flowsheet group 1. : WNL: WNL - within normal limits (10/31/24744) Urine Description: Clear;Yellow (10/30/24 0856) Integumentary: Integumentary WNL: X - Exceptions to WNL as documented below (10/31/24744) Skin Description: Dry;Warm (10/30/242099) Skin Color: Flesh Tone (10/30/242099) Skin Variations: Other - Describe (Scattered scabs) (10/31/24744) Larry Score (auto-calculation): 19 (10/31/24 0900) Additional Assessment Information: Pt is [place] Reminder: Void integration manager, all clothes removed. * Deng, Christine Hayes RN - 10/30/2024 9:13 AM EST IP TO CARDIAC INVASIVE LABS HANDOFF COMMUNICATION NOTE [address] [address] Name: Adam Hayes AGE: [age] year old Location: [facility] [place] H876/A Date: 10/30/2024 Attention to: CRS Report from: Christine Vilchis RN Patient arriving via: Bed Time of Call: 9:13 AM Phone Ext.: [phone] Reason for SBAR handoff: Procedure/Diagnostic/Treatment Patient able to sign Consent: Yes Female 11-55 Test Resulted if Ordered: Does not meet criteria. Emotional/Personal Anxiety? 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 COPD (chronic obstructive pulmonary disease) ([facility]) Coronary atherosclerosis of [place] coronary artery 08/28/2011 DM type 2, goal A1c below 7 08/28/2011 Ectropion LLL HTN, goal below 130/80 Hyperlipidemia LDL goal < 70 Hypoxemia Impacted cerumen INFORMATION 05/16/2015 dent left upper leg/groin/abdomen OR (myocardial infarction) ([facility]) Obesity, unspecified Obstructive sleep apnea (adult) (pediatric) Percutaneous transluminal coronary angioplasty status 08/28/2011 S/P percutaneous transluminal coronary angioplasty 2006 D1 Tobacco use disorder PSH: Past Surgical History: Procedure Laterality Date CATHETERIZE [...] stents x2 PLACE INTRACORONARY STENT, FIRST VS 2005 D1 REMOVE CATARACT, INSERT LENS PROSTH OS [place] OD [place] REMOVE TONSILS & ADENOIDS, UNDER 12 REPAIR OF NASAL SEPTUM Septoplasty RIGHT HEART CATHETERIZATION 03-11 Cardiac Catheterization, Right Heart x2 stents STRESS TREADMILL 2007 Cardiovascular Stress Test UMBIL HERNIA REPAIR (REDUCIBLE) AGE 5+YR 8-2008 Umbilical Hernia Repair,5+Y/O,Reduc double hernia VASECTOMY Isolation: Situation/Background Admission Date: 10/29/2024 Patient Service: Cardiology Med B Attending: Yifan Sullivan DO Level of Care: Med Surg [3] Assessment Vital Signs: BP: 118/87 (10/30/24 0703) Temp: 36.5 C (97.7 F) (10/30/24 0703) Pulse: 101 (10/30/24 0703) Resp: 18 (10/30/24 0703) SpO2: 93 % (10/30/24 0703) O2 flow rate: 3 L/MIN (10/30/24 0734) Glucose (Bedside): 124 (10/30/24 0553) Lines: Peripheral Line Right 20 Gauge (Active) Status Fluids infusing 10/30/24 0856 Tubing Changed N/A 10/30/24 0856 Phlebitis Scale 0 10/30/24 0856 Infiltration Scale 0 10/30/24 0856 Site Description (Other) Sanguineous drainage 10/30/24 0856 Site Intervention None required 10/30/24 0856 Dressing Assessment Sanguineous drainage 10/30/24 0856 Dressing Intervention None required 10/30/24 0856 Number of days: 388 Labs: Please see Lab Flowsheet for lab values. Lab Comments: None Diet: Orders Placed This Encounter Procedures NPO Except Meds NPO: Additional Diet Information: None Intake and Output: Intake/Output Summary (Last 24 hours) at 10/30/2024912 Last data filed at 10/30/2024855 Gross per 24 hour Intake 172.23 ml Output 200 ml Net -27.77 ml Belongings Remaining with Patient: None What were AM meds taken with: Water Time of last pain medication: Tylenol @ 0709 Time of last antibiotic: N/A Antiplatelets: Aspirin 81 mg this morning Anticoags: Heparin gtt @ 15 units/kg/hr Neurological: Neuro WNL: X - Exceptions to WNL as documented below (10/30/24855) Speech: Clear (10/30/24855) Level of Consciousness: Alert (10/30/24855) RUE Motor Strength: 5-Active movement with full resistance (10/30/24855) RLE Motor Strength: 5-Active movement with full resistance (10/30/24855) LUE Motor Strength: 5-Active movement with full resistance (10/30/24855) LLE Motor Strength: 5-Active movement with full resistance (10/30/24855) Coma Score: 15 (10/30/24855) Respiratory: Respiratory WNL: X - Exceptions to WNL as documented below (10/30/24855) Cough: Occasional;Non-Productive (10/30/24855) Depth/Rhythm: Regular (10/30/24855) Dyspnea Occurance: With Exertion (10/30/24855) Effort: Unlabored (10/30/24855) Oxygen therapy/ Mechanical vent Supplemental O2 Delivery: Nasal Cannula (10/30/24733) O2 flow rate: 3 L/MIN (10/30/24733) Cardiac: Cardiovascular WNL: X - Exceptions to WNL as documented below (10/30/24855) Heart Sounds: S1;S2 (10/30/24855) Rhythm: 1 degree AV Block (10/29/242346) MO interval: 0.23 seconds (10/29/242346) QRS: 0.12 seconds (10/29/242346) Pulses Right: Palpable;Radial + (10/30/24855) Pulses Left: Palpable;Radial + (10/30/24855) GI: WNL : WNL: WNL - within normal limits (10/30/24855) Urine Description: Clear;Yellow (10/30/24855) Integumentary: Integumentary WNL: X - Exceptions to WNL as documented below (10/30/24855) Skin Description: Dry;Warm (10/29/242151) Skin Color: Flesh Tone (10/29/242151) Skin Variations: Other - Describe (Scattered scabs) (10/30/24855) Larry Score (auto-calculation): 19 (10/30/24855) Additional Assessment Information: None Reminder: Void integration manager, all clothes removed. * Will, Bambi Reyes RN - 10/29/2024 11:53 PM EST VIRTUAL RN [facility] [place]-[address] [address] Name: Adam Hayes Location: [facility] [place] H876/A Date: 10/29/2024 Time: 11:53 PM I completed the Admission Navigator. The patient was in the hospital. I was not in a hospital or clinic location. After connecting through [employer] [place], the patient was identified by name and date of and / or wristband checked. Patient (or authorized legal service liaison representative) was then informed that this was a Virtual Nurse visit and was being conducted confidentially over secure lines. I used a headset and other methods to ensure confidentiality for the patient. My office door was closed. No oneelse was in the room with me. Patient acknowledged consent and understanding of privacy and security of the Virtual Nurse visit. I presented the opportunity for the patient or authorized legal service liaison representative to ask any questions regarding the visit today. The patient or authorized legal service liaison representative agreed to participate. Pt was alert with the call carrillo within reach. Admission questions were completed with pt and pt's daughter Bambi and the pt/family had no concerns/questions. Patient and pt's daughter expressed that patient had an allergy to a contrast/dye, but could not remember what dye it was/what procedure the patient was undergoing when the allergy was discovered, bedside nurse notified. The bedside nurse (Patricia Roger) made aware that the pt belongings, skin assessment, dysphagia screening, and aggression scale needs to be completed by the bedside nurse. Bedside nurse also notified that the Abuse/Assault screen was unable to be completed due to being unable to screen the patient privately. The pt was instructed on using the call carrillo for assistance as needed. * Patricia Trinidad RN - 10/29/2024 11:33 PM EST Dual Licensed Skin Assessment completed by REDDY OAKES and MS BLAKELY. The patient is/has a N/A Scattered scabs Skin Breakdown (includes non blanchable erythema): No documented in this encounter Miscellaneous Notes * Pt Handout (on AVS) - Karyna Oro RN - 11/01/2024 9:15 AM EST [id number] Carvedilol Brand Name(s): Coreg, Coreg CR; also available generically WHY is this medicine prescribed? Carvedilol is used alone or in combination with other medications to treat heart failure (conditionin which the heart cannot pump enough blood to all parts of the body) and high blood pressure. It also is used to improve survival after a heart attack. Carvedilol is often used in combination with other medications. Carvedilol is in a class of medications called beta-blockers. It works by relaxingblood vessels and slowing heart rate to improve blood flow and decrease blood pressure High blood pressure is a common condition and when not treated, can cause damage to the brain, heart, blood vessels, kidneys and other parts of the body. Damage to these organs may cause heart disease, a heart attack, heart failure, stroke, kidney failure, loss of vision, and other problems. In addition to taking medication, making lifestyle changes will also help to control your blood pressure. These changes include eating a diet that is low in fat and salt, maintaining a healthy weight, exercising at least 30 minutes most days, not smoking, and using alcohol in moderation. HOW should this medicine be used? Carvedilol comes as a tablet and an extended-release (long-acting) capsule to take by mouth. The tablet is usually taken twice a day with food. The extended- release capsule is usually taken once a day in the morning with food. Try to take carvedilol at around the same time(s) every day. Follow the directions on your prescription label carefully, and ask your doctor or pharmacist to explain any part you do not understand. Take carvedilol exactly as directed. Do not take more or less of it or take it more often than prescribed by your doctor. Swallow the extended-release capsules whole. Do not chew or crush the capsules, and do not divide the beads inside a capsule into more than one dose. If you are unable to swallow the capsules, you may carefully open a capsule and sprinkle all of the beads it contains over a spoonful of cool or roomtemperature applesauce. Swallow the entire mixture immediately without chewing. Your doctor will probably start you on a low dose of carvedilol and gradually increase your dose toallow your body to adjust to the medication. Talk to your doctor about how you feel and about any symptoms you experience during this time. Carvedilol may help to control your condition but will not cure it. Continue taking carvedilol evenif you feel well. Do not stop taking carvedilol without talking to your doctor. If you suddenly stop taking carvedilol, you may experience serious heart problems such as severe chest pain, a heart attack, or an irregular heartbeat. Your doctor will probably want to decrease your dose gradually over1 to 2 weeks. Your doctor will watch you carefully and will probably tell you to avoid physical activity during this time. Are there OTHER USES for this medicine? This medication may be prescribed for other uses. Ask your doctor or pharmacist for more information. What SPECIAL PRECAUTIONS should I follow? Before taking carvedilol, The following nonprescription or herbal products may interact with carvedilol: Edwin's Wort. Be sure to let your doctor and pharmacist know that you are taking this medication before you start taking carvedilol. Do not start this medication while taking carvedilol without discussing with your healthcare provider. tell your doctor and pharmacist if you have are allergic to carvedilol, any other medications, or any of the ingredients in carvedilol tablets and extended- release capsules. Ask your pharmacist for a list of the ingredients. tell your doctor and pharmacist what prescription and nonprescription medications, vitamins, herbal products, and nutritional supplements you are taking or plan to take while taking carvedilol. Your doctor may need to change the doses of your medications or monitor you carefully for side effects. tell your doctor if you have or have ever had asthma or other breathing problems, a slow or irregular heartbeat, heart failure, or liver disease. Your doctor may tell you not to take carvedilol. tell your doctor if you have or have ever had problems with blood flow in your feet or legs, diabetes or any other condition that causes you to have low blood sugar, hyperthyroidism (condition in which there is too much thyroid hormone in the body), low blood pressure, Prinzmetal's angina (chestpain that comes at rest with no obvious cause), pheochromocytoma (a tumor that develops on a gland near the kidneys and may cause high blood pressure and fast heartbeat), or heart, kidney, or liver disease. Also tell your doctor if you have ever had a serious allergic reaction to a food or any other substance. tell your doctor if you are , plan to become , or are breast- feeding. If you become while taking carvedilol, call your doctor. if you are having surgery, including dental or eye surgery, tell the doctor, dentist, or eye doctor that you are taking carvedilol. you should know that this medication may make you feel tired, dizzy, or lightheaded, especially when you start taking carvedilol and when your dose is increased. Do not drive a car or operate machinery until you know how this medication affects you. Be especially careful during the first hour after you take the medication. you should know that carvedilol may cause dizziness, lightheadedness, and fainting, especially when you get up too quickly from a lying position. This is more common when you first start taking carvedilol. To avoid this problem, get out of bed slowly, resting your feet on the floor for a few minutes before standing up. you should know that carvedilol may increase the risk of hypoglycemia (low blood sugar) and prevent the warning signs and symptoms that would tell you that your blood sugar is low. Let your doctorknow if you are unable to eat or drink normally or are vomiting while you are taking carvedilol. You should know the symptoms of low blood sugar and what to do if you have these symptoms. you should know that if you have allergic reactions to different substances, your reactions may be worse while you are taking carvedilol, and your allergic reactions may not respond to the usual doses of injectable epinephrine. if you wear contact lenses, your eyes may become dry during your treatment with carvedilol. Tellyour doctor if this becomes bothersome. What SPECIAL DIETARY instructions should I follow? Unless your doctor tells you otherwise, continue your normal diet. What should I do IF I FORGET to take a dose? Take the missed dose as soon as you remember it. However, if it is almost time for the next dose, skip the missed dose and continue your regular dosing schedule. Do not take a double dose to make up for a missed one. What SIDE EFFECTS can this medicine cause? Carvedilol may cause side effects. Tell your doctor if any of these symptoms are severe or do not go away: tiredness weakness lightheadedness dizziness headache diarrhea nausea vomiting vision changes joint pain difficulty falling asleep or staying asleep stuffy or runny nose cough dry eyes numbness, burning, or tingling in the arms or legs Some side effects may be serious. If you experience any of the following symptoms, call your doctorimmediately: fainting shortness of breath weight gain swelling of the arms, hands, feet, ankles, or lower legs chest pain slow or irregular heartbeat rash hives itching swelling of the face, lips, tongue, or throat difficulty breathing and swallowing Carvedilol may cause other side effects. Tell your doctor if you experience any unusual problems while you are taking this medication. If you experience a serious side effect, you or your doctor may send a report to the Food and Drug Administration's (FDA) MedWatch Adverse Event Reporting program online (https://www.fda.gov/Safety/MedWatch) or by phone ( ). What should I know about STORAGE and DISPOSAL of this medication? Keep this medication in the container it came in, tightly closed, and out of reach of children. Store it at room temperature and away from excess heat and moisture (not in the bathroom). It is important to keep all medication out of sight and reach of children as many containers (such as weekly pill minders and those for eye drops, creams, patches, and inhalers) are not child-resistant and young children can open them easily. To protect young children from poisoning, always lock safety caps and immediately place the medication in a safe location -- one that is up and away and outof their sight and reach. https://www.[employer].org Unneeded medications should be disposed of in special ways to ensure that pets, children, and otherpeople cannot consume them. However, you should not flush this medication down the toilet. Instead,the best way to dispose of your medication is through a medicine take-back program. Talk to your pharmacist or contact your local garbage/recycling department to learn about take-back programs in your community. See the FDA's Safe Disposal of Medicines website (https://goo.gl/c4Rm4p) for more information if you do not have access to a take-back program. What should I do in case of OVERDOSE? In case of overdose, call the poison control helpline at . Information is also available online at https://www.poisonhelp.org/help. If the victim has collapsed, had a seizure, has trouble breathing, or can't be awakened, immediately call emergency services at 911. Symptoms of overdose may include: slow heartbeat dizziness fainting difficulty breathing cough or wheezing vomiting loss of consciousness seizures What OTHER INFORMATION should I know? Keep all appointments with your doctor and the laboratory. Your doctor may order certain laboratorytests to check your body's response to carvedilol. Do not let anyone else take your medication. Ask your pharmacist any questions you have about refilling your prescription. It is important for you to keep a written list of all of the prescription and nonprescription (qmkf-rrb-epgrwfc) medicines you are taking, as well as any products such as vitamins, minerals, or otherdietary supplements. You should bring this list with you each time you visit a doctor or if you areadmitted to a hospital. It is also important information to carry with you in case of emergencies. This report on medications is for your information only, and is not considered individual patient advice. Because of the changing nature of drug information, please consult your physician or pharmacist about specific clinical use. The [employer] represents that the information provided hereunder was formulated with a reasonable standard of care, and in conformity with professional standards in the field. The [place] makes no representations or warranties, express or implied, including, but not limited to, any implied warranty of merchantability and/or fitness for a particular purpose, with respect to such information and specifically disclaims all such warranties. Users are advised that decisions regarding drug therapy are complex medical decisions requiring the independent, informed decision of an appropriate health health care aide, and the information is provided for informational purposes only. The entire monograph for a drug should be reviewed for a thorough understanding of the drug's actions, uses and side effects. The [place] does not endorse or recommend the use of any drug.The information is not a substitute for medical care. [facility] Patient Medication Information?. Copyright, 2023. [employer], [facility], [address], [place], [place]. All Rights Reserved. Duplication for commercial use must be authorized by [facility]. Selected Revisions: June 20, 2023. [facility] Patient Medication Information?. Copyright, 2023 * Pt Handout (on AVS) - Yudelka Rice, Vasu iMller RPh - 11/01/2024 8:35 AM EST [id number] Ticagrelor Brand Name(s): Brilinta; also available generically IMPORTANT WARNING: Ticagrelor may cause serious or life-threatening bleeding. Tell your doctor if you currently have or have had a condition that causes you to bleed more easily than normal; if you have recently had surgery or been injured in any way; or if you have or have ever had a stomach ulcer; bleeding in your stomach, intestines, or brain; a stroke or mini-stroke; a condition that may cause bleeding in your intestines such as polyps (abnormal growths in the lining of the large intestine); or liver disease.Tell your doctor and pharmacist if you are taking medications that may cause bleeding including anticoagulants (blood thinners) such as warfarin (Coumadin, Jantoven); heparin; other medications to treat or prevent blood clots; or regular use of non-steroidal anti-inflammatory medications such as ibuprofen (Advil, Motrin) and naproxen (Aleve). Your doctor also will probably not prescribe ticagrelor if you are likely to need heart bypass surgery (a certain type of open heart surgery) right away. While you are taking ticagrelor, you will probably bruise and bleed more easily than usual or bleed for longer than usual and may be more likely to have nosebleeds. However, if you experience any of the following symptoms, call your doctor immediately: bleeding that is unexplained, severe, long-lasting, or uncontrollable; pink or brown urine; red or black, tarry stools; vomit that is bloody or that looks like coffee grounds; or coughing up blood or blood clots. If you are having surgery, including dental surgery, or any type of medical procedure, tell your doctor or dentist that you are taking ticagrelor. Your doctor will probably tell you to stop taking ticagrelor at least 5 days before your surgery is scheduled. Your doctor will probably tell you to take a low dose of aspirin (less than 100 mg) during your treatment, but taking higher doses of aspirin may prevent ticagrelor from working as it should. Many bbzx-rwu-jwxkhrz (OTC) medications contain aspirin, so be sure to read all labels carefully. Do not take additional aspirin or aspirin-containing products during your treatment with ticagrelor without talking to your doctor. Your doctor or pharmacist will give you the clay roaster's patient information sheet (Medication Guide) when you begin treatment with ticagrelor and each time you refill your prescription. Read the information carefully and ask your doctor or pharmacist if you have any questions. You can also visitthe Food and Drug Administration (FDA) website (https://www.fda.gov/Drugs/DrugSafety/xyr383535.htm)or the clay roaster's website to obtain the Medication Guide. Talk to your doctor about the risks of taking ticagrelor. WHY is this medicine prescribed? Ticagrelor is used to prevent a serious or life-threatening heart attack or stroke, or in people who have had a heart attack or who have acute coronary syndrome (ACS; blockage of blood flow to the heart). It is also used to prevent blood clots from forming in people who have received coronarystents (metal tubes surgically placed in clogged blood vessels to improve blood flow) to treat ACS.Ticagrelor is used to decrease the risk of a first-time heart attack or stroke in people at risk with coronary artery disease (CAD; reduced blood flow to the heart). It is also used to decrease the risk of another more serious stroke in people who are having a mild to moderate stroke or a transient ischemic attack (TIA; ministroke). Ticagrelor is in a class of medications called antiplatelet medications. It works by preventing platelets (a type of blood cell) from collecting and forming clots that may cause a heart attack or stroke. HOW should this medicine be used? Ticagrelor comes as a tablet to take by mouth. It is usually taken with or without food two times aday. Take ticagrelor at around the same times every day. Follow the directions on your prescriptionlabel carefully, and ask your doctor or pharmacist to explain any part you do not understand. Take ticagrelor exactly as directed. Do not take more or less of it or take it more often than prescribedby your doctor. If you are unable to swallow ticagrelor tablets, you may crush the tablet and mix it with water. Drink the mixture immediately, then refill the glass with water and stir and again drink the mixture immediately. If you have a nasogastric (NG) tube, your doctor or pharmacist will explain how to prepare ticagrelor to give through an NG tube. Ticagrelor will help prevent serious problems with your heart and blood vessels only as long as youtake the medication. Continue to take ticagrelor even if you feel well. Do not stop taking ticagrelor without talking to your doctor. If you stop taking ticagrelor, there is a higher risk that you may have a heart attack or stroke. If you have a stent, there is also a higher risk that you could deve lop a blood clot in the stent if you stop taking ticagrelor too soon. Are there OTHER USES for this medicine? This medication may be prescribed for other uses; ask your doctor or pharmacist for more information. What SPECIAL PRECAUTIONS should I follow? Before taking ticagrelor, tell your doctor and pharmacist if you are allergic to ticagrelor, any other medications, or anyof the ingredients in ticagrelor tablets. Ask your pharmacist or check the Medication Guide for a list of the ingredients. tell your doctor and pharmacist what other prescription and nonprescription medications, vitamins, nutritional supplements, and herbal products you are taking or plan to take while taking ticagrelor. Your doctor may need to change the doses of your medications or monitor you carefully for side effects. the following nonprescription product may interact with ticagrelor: aspirin. Be sure to let yourdoctor and pharmacist know that you are taking this medication before you start taking ticagrelor. Do not start this medication while taking ticagrelor without discussing with your healthcare provider. tell your doctor if you have or have ever had an irregular heartbeat that is not corrected by a pacemaker, a type of lung disease such as chronic obstructive pulmonary disease (COPD; a group of diseases that affect the lungs and airways) or asthma. tell your doctor if you are , plan to become , or are . If you become while taking ticagrelor, call your doctor. What SPECIAL DIETARY instructions should I follow? Unless your doctor tells you otherwise, continue your normal diet. What should I do IF I FORGET to take a dose? Skip the missed dose and continue your regular dosing schedule. Do not take a double dose to make up for a missed one. What SIDE EFFECTS can this medicine cause? Ticagrelor may cause side effects. Tell your doctor if any of these symptoms are severe or do not go away: dizziness nausea Some side effects can be serious. If you experience any of these symptoms or those listed in the IMPORTANT WARNING section, call your doctor immediately: shortness of breath that occurs while you are at rest, after a small amount of exercise, or after any physical activity chest pain fast, slow, pounding, or irregular heartbeat rash swelling of the face, throat, tongue, lips, and eyes Ticagrelor may cause other side effects. Call your doctor if you have any unusual problems while taking this medication. If you experience a serious side effect, you or your doctor may send a report to the Food and Drug Administration's (FDA) MedWatch Adverse Event Reporting program online (https://www.fda.gov/Safety/MedWatch) or by phone ( ). What should I know about STORAGE and DISPOSAL of this medication? Keep this medication in the container it came in, tightly closed, and out of reach of children. Store it at room temperature and away from excess heat and moisture (not in the bathroom). It is important to keep all medication out of sight and reach of children as many containers (such as weekly pill minders and those for eye drops, creams, patches, and inhalers) are not child-resistant and young children can open them easily. To protect young children from poisoning, always lock safety caps and immediately place the medication in a safe location -- one that is up and away and outof their sight and reach. https://www.[employer].org Unneeded medications should be disposed of in special ways to ensure that pets, children, and otherpeople cannot consume them. However, you should not flush this medication down the toilet. Instead,the best way to dispose of your medication is through a medicine take-back program. Talk to your pharmacist or contact your local garbage/recycling department to learn about take-back programs in your community. See the FDA's Safe Disposal of Medicines website (https://goo.gl/c4Rm4p) for more information if you do not have access to a take-back program. What should I do in case of OVERDOSE? In case of overdose, call the poison control helpline at . Information is also available online at https://www.poisonhelp.org/help. If the victim has collapsed, had a seizure, has trouble breathing, or can't be awakened, immediately call emergency services at [phone]. Symptoms of overdose may include the following: bleeding nausea vomiting diarrhea irregular heartbeat What OTHER INFORMATION should I know? Keep all appointments with your doctor and the laboratory. Your doctor may order certain lab tests to check your body's response to ticagrelor. Before having any laboratory test, tell your doctor and the laboratory personnel that you are taking ticagrelor. Do not let anyone else take your medication. Ask your pharmacist any questions you have about refilling your prescription. It is important for you to keep a written list of all of the prescription and nonprescription (znjz-oyr-tsshflh) medicines you are taking, as well as any products such as vitamins, minerals, or otherdietary supplements. You should bring this list with you each time you visit a doctor or if you areadmitted to a hospital. It is also important information to carry with you in case of emergencies. This report on medications is for your information only, and is not considered individual patient advice. Because of the changing nature of drug information, please consult your physician or pharmacist about specific clinical use. The [place] represents that the information provided hereunder was formulated with a reasonable standard of care, and in conformity with professional standards in the field. [employer] makes no representations or warranties, express or implied, including, but not limited to, any implied warranty of merchantability and/or fitness for a particular purpose, with respect to such information and specifically disclaims all such warranties. Users are advised that decisions regarding drug therapy are complex medical decisions requiring the independent, informed decision of an appropriate health health care aide, and the information is provided for informational purposes only. The entire monograph for a drug should be reviewed for a thorough understanding of the drug's actions, uses and side effects. The [employer] does not endorse or recommend the use of any drug.The information is not a substitute for medical care. [facility] Patient Medication Information?. Copyright, 2023. [employer], [address], [address], [place], [place]. All Rights Reserved. Duplication for commercial use must be authorized by [facility]. Selected Revisions: November 20, 2020. [facility] Patient Medication Information?. Copyright, 2023 * Care Plan - Max Jaramillo RN - 11/01/2024 3:04 AM EST Clinical Goal(s): Pt will report any new/worsening chest pain to nursing staff this shift (700) Possible barriers to meeting goal(s)/advancing plan of care: Pt diagnosis Stability of the patient: Moderately stable - low risk of patient condition declining or worsening Summary regarding today's goal(s): Met: Pt reported no new or worsening chest pain t/o shift Recommendations: Continue plan of care * Progress Notes - Non-Billable - Krystal Joshi DO - 10/31/2024 6:08 PM EST POST-CATH CHECK Subjective: Patient doing well post-cath. Of note, patient sat up prematurely causing oozing from the cath site, 45 min of pressure was applied and hemostasis was achieved. Denies significant pain, numbness, tingling, weakness in the R leg. Denies bleeding at the R commonfemoral artery access site. Also denies any chest pain, shortness of breath, palpitations, headaches, nausea, vomiting, abdominal pain. Objective: BP 124/80 | Pulse 81 | Temp 36.8 C (98.2 F) (Tympanic) | Resp 20 | Wt 93.1 kg (205 lb 4 oz) | SpO2 100% | BMI 31.11 kg/m | BSA 2.12 m Peripheral Line Right 20 Gauge (Active) Number of days: 389 Peripheral Line Lower;Right 20 Gauge (Active) Number of days: 0 General: Patient in no apparent distress. HEENT: normocephalic, atraumatic. Heart: regular rate and rhythm; S1 and S2 present; no murmurs, rubs or gallops. Pulmonary: diffuse inspiratory upper airway sounds. Abdomen: Soft, non-tender, non-distended. Normal bowel sounds and no rebound or guarding. Extremities: No pitting edema present at lower extremity bilaterally. Neuro: AAOx3. Psych: Appropriate mood and affect. Cath site: R NEUROPATHOLOGIST No significant bleeding or hematoma. Pulse, strength, sensation intact. No bruit heard. Distal pulses equal and intact. 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 Rota 1.5mm kade was used to modify the calcium ,3.5x34mm [place] KACY was deployed and post dilated using 4.5mm NC balloons with excellent angiographicand IVUs results. 7F RCFA sheath left in place to be removed once ACT<180 Assessment/Plan: Adam Hayes is a 79 year old male who underwent cardiac catheterization and found to have findings listed above. Currently hemodynamically stable and no active bleeding. I reminded patient that it is very important to lay flat until 8:30pm to ensure no bleeding. Hgb stable Ticagrelor and ASA for at least 1 year Rest of management per day team note. Krystal Joshi DO Resident Physician This chart was completed in part utilizing [employer] Voice Recognition Software. Grammatical errors, random word insertions, pronoun errors, and incomplete sentences are an occasional consequence of this system due to software limitations, ambient noise, and hardware issues. Any formal questions or concerns about the content, text, or information contained within the body of this dictation should be directly addressed to the provider for clarification. * Ancillary Progress Note - Beena Martinez RCIS - 10/31/2024 4:38 PM EST [place] [address] [facility] [id number] Ancillary Progress Note Patient Name: Adam Hayes Date: 10/31/2024 ACT = 220 seconds. 7 Fr sheath pulled post procedure from right femoral artery. Manual pressure washeld for 45 minutes and hemostasis was obtained, with no hematoma noted. CHG Tegaderm dressing applied to site Distal pulses were palpated, and instructions were given to the patient. * Ancillary Progress Note - Beena Martinez RCIS - 10/31/2024 3:35 PM EST Called to patient bedside to assess presence of hematoma. A small hematoma present at right femoralartery site with an ooze. ACT was checked and came back at 220 seconds. Ooze did not stop after 10 minutes of manual pressure. Sheath needed to be pulled at this time to obtain hemostasis. Physician notified. * Ancillary Progress Note - Ignacio Melendrez RCIS - 10/31/2024 2:13 PM EST [address] [address] Ancillary Progress Note Patient Name: Adam Hayes Date: 10/31/2024 Patient will be escorted to Cardiac Recovery Suite, report given to CRS RN. We performed a Diagnostic Cardiac Catheterization procedure on this patient.. The right femoral artery was used for access with a 7 [place] sheath. The sheath will be pulled later due to anticoagulation. There is no hematomaand no ooze from the cath site noted. CHG Tegaderm dressing applied to site Distal pulses were palpated and instructions to patient were given. There were no complications during the case. Please seethe MAR for the medications that were given. See Cath Procedure Log for patient vitals during the case. * Communication - Juan Manuel Ellis MD - 10/31/2024 12:24 PM EST INFORMED CONSENT FOR CARDIAC CATH AND INTERVENTIONAL PROCEDURES: I discussed with patient the alternatives to cardiac cath including medical therapy and if appropriate exercise testing. I discussed the risks of cath including 01/1000 , OR, CVA and 2/100 risk of allergic reaction, bleeding, infection, arrhythmia requiring shock, damage to artery requiring surgery or amputation, radiation skin dent. I discussed technique of catheterization. The patient indicated understanding and a preference for proceeding with catheterization considering these factors. I discussed with the patient coronary intervention and alternatives including bypass surgery and medical therapy. I discussed the risks of intervention including 5-10% risk of OR, 5% risk of bleeding possibly requiring transfusion, 1% risk of , 1% risk of emergency CABG, and 20- 30% risk of restenosis, and the chance that even a successful procedure will not relieve symptoms if they are not due to cardiac ischemia. The patient would like to have ad hoc intervention done at the time of the ca theterization if it seems appropriate. Discussed with patient that given his comorbidities including but not limited to complex CAD, COPD , anemia that he is at higher risk for complications than the above stated percentages. He verbalized understanding and still wishes to proceed with planned procedure. * Ancillary Progress Note - Padmini Fatima MSW - 10/31/2024 9:43 AM EST CARE MANAGEMENT - ADULT INITIAL SCREENING [facility]-[address] [address] Name: Adam Hayes Location: [facility] H876/[id number] Date: 10/31/2024 Time: 9:43 AM Discussed patient with the interdisciplinary care team. This Antique Collector performed a chart review to complete admission screen and assessed needs for transition planning. The director day care center role and services were explained and emotional support was provided. Chief Complaint: No chief complaint on file. Prior Living Arrangements What was your living situation prior to admission/observation?: Independently;With Child (10/31/24938) Living Quarters: House (mobile home) (10/31/24938) Do you have serious difficulty walking or climbing stairs? (5 years old or older): Yes (uses cane) (10/29/242327) History of falling: Yes (10/31/24899) Prior Level of Functioning Describe the patient's ability prior to admission/observation to perform ADLs: Performs independently (10/31/24938) Describe the patient's mobility status prior to admission: Patient ambulates independently (10/31/24938) Patient uses assistive device: Yes (10/31/24938) If yes, choose:: Cane (10/31/24938) Caregiver Information Emergency Contacts Name Relation Home Work Mobile Bambi Hayes Other - (no specific identity) [phone] Other Contacts Name Relation Home Work Mobile Cheli Stewart Adult Child [phone] Makayla Joshi Other - (no specific identity) [phone] Risk Stratification/Psychosocial/Care Gaps Risk Stratification Psycho Social / Medical Concerns Identified: Adjustment to illness/injury (10/31/24938) Readmission Risk Score: 14.69 (10/31/24799) AM-PAC Score With Stairs : 21 (10/31/24899) Prior to Admission Services Services Prior to Admission ACCOUNT ASSOCIATE Services (Services received within the last 30 days with exception, Psych within last two years): Durable Medical Equipment;[facility] (10/31/24938) ACCOUNT ASSOCIATE Durable Medical Equipment (DME) in home: Cane;Oxygen (name) - Comment ([employer] [facility]) (10/31/24938) Outpatient Antique Collector: Patient Care Team: Glenny Hernandez, RN as Matrix Plater (Registered Nurse) Estefani Gomez RN as Matrix Plater (Matrix Plater) Patient/Family Expectations: Pt lives in a mobile home w/ daughter. Pt uses a cane and O2 through [employer]. Pt active with [facility]. Pt on the queue for substance, Pt states uses marijuana daily. Not interested in resources. Pt to go for cath today. Anticipate Pt to go home at [place]. SW will continue to follow for evolving needs and support. For further screening information, please refer to the Care Management flow document. * Communication - Drake Granger DO - 10/31/2024 7:32 AM EST INPATIENT CARDIAC CATHETERIZATION CHECKLIST Case Request Details Requested Procedure L+C Indication NSTEMI Attending Physician Dr. Sullivan Patient Condition Patient Able to Consent? If no, ensure patient is accompanied by a family member Yes Full Code? Yes Hemodynamically Stable? Yes Oxygen Requirement 3 L Able to tolerate lying flat? Yes NPO for at least 6 hours? If no, when was last PO intake Yes If Female <55 years old, negative test, total hysterectomy, or last menses >1 year?N/A Allergies Allergy to dye? No Allergy to aspirin? No Allergy to heparin? No Labs Last Creatinine 0.8 Last Hemoglobin 12.7 Last Platelet Count 155 Last INR 1.1 Medications Any Oral Anticoagulant in the Last 48 Hours? If yes, what was administered and when? No Last Administered dose of Aspirin Date: 10/31/24 Time: 0900 Other Information Access Site Limitations? (ie: prior failed attempts, known access-related PAD, tortuosity, scar, rash/infection, stent/graft/endartectomy, AV fistula, severe raynaud's, IVC Filter) No CABG Anatomy and Patency, if Applicable N/A Last LV EF 55-60 Case Specific Considerations? (ie: LV thrombus, aortic mural thrombus, aortic dissection, aortic valve vegetation/thrombus, altered mentation, agitation) [place] angiogram 10/29/24 available on [employer]. Report summary: - Patent prior stents with mild to moderate InStent restenosis in the LAD and occlusion in the diagonal branches. - Severe subtotal occlusion in the very large RCA with significant calcification and ectasia. This is culprit for recent non ST elevation OR - Recommend PCI of the RCA. This will likely require intracoronary lithotripsy and large caliber a balloon/stents. This should be performed with CT surgery backup or at minimum air evacuation availability. * Respiratory Progress Note - Bridget Vee RRT - 10/30/2024 7:40 AM EST PATIENT DRIVEN PROTOCOL - Respiratory Care Services [address] [address] Name: Adam Hayes Location: [facility] [id number] Date: 10/30/2024 Time: 7:40 AM Patient Driven Protocol Summary: Initial evaluation performed. This Treatment Plan and medications will be reviewed by the Primary Care Team for any contraindications. Respiratory Care Treatment Plan Aerosol Therapy Treatment:: Inhaler(s) QDAY with Trelegy Ellipta (fluticasone furoate 100 mcg, umeclidinium 62.5 mcg and Vilanterol 25 mcg inhalation powder) / 1 inhalation. to reduce work of breathing and improve pulmonary gasexchange and suppress bronchial inflammation and edema by the use of systemic steroid sparing therapy. Additional Aerosolized Treatments: Hand Held Nebulizer Tx PRN with Albuterol Sulfate: 2 puffs. to reduce work of breathing and improvepulmonary gas exchange. . Pulmonary Volume Expansion Therapy: Deep Breathing/Cough PRN to enhance mobilization of secretions and prevent or treat alveolar consolidation and atelectasis. . The patient will be re-evaluated: No re-evaluation needed. Indications for treatment met. The Triage Level is: (Assessment Score = 6 -10) Level 4. Triage Level Definitions: Level 1 Severe Respiratory/Airway Compromise Level 2 Moderate Respiratory/Airway Compromise or high risk for pulmonary complications Level 3 Mild Respiratory/Airway Compromise or moderate risk for pulmonary complications Level 4 Episodic Respiratory/Airway Compromise or low risk for pulmonary complications Level 5 No Respiratory/Airway Compromise Triage 1 Triage 2 Triage 3 Triage 4 Triage 5 greater than 20 16 - 20 11 - 15 6 - 10 0 - 5 Medical Record Assessment Clinical Findings Pulmonary Status: 3 - Pulm Impairment (acute or chronic) w/o exacerbation, or 1 - 2 rib fractures Surgical Status: 0 - No Surgical History Chest X-Ray: 0 - Not Performed or performed greater than 3 days ago Assessment Score: 3 Patient Assessment Clinical Findings Respiratory Pattern: 0 - RR 12 - 20; Patient only gets breathless with strenuous exercise. Breath Sounds: 2 - Diminished bilaterally Cough Effectiveness: 0 - Strong non-productive Sputum Production: 0 - No sputum production Level of Activity: 0 - Ambulatory O2 needed to keep SpO2 greater than or equal to 92%: 1 - Oxygen 1-3 LPM or FiO2 less than 35% Assessment Score: 3 Total Assessment Score: 6 Breath Sounds: Inspiratory and expiratory diminished bilaterally.. Cough and Sputum: A loose cough produced no sputum. Cough cleared patients throat. CXR: Not performed. Vital Signs: Resp: 18 (10/30/24702) Pulse: 101 (10/30/24702) Temp: 36.5 C (97.7 F) (10/30/24702) BP: 118/87 (10/30/24702) SpO2: 93 % (10/30/24702) Primary Service: Cardiology Med B. Admitting Diagnosis: NSTEMI (non-ST elevated myocardial infarction) (HCC) [I21.4] Pulmonary Diagnosis: COPD, SANJAY, and Current 1.5ppd smoker . Prescriptions/Home Medications/Durable Medical Equipment: Per Patient: QDay Trelegy 100 and PRN Albuterol. Recommended New home medications/durable medical equipment/outpatient pulmonary/sleep referral: None. * Pt Handout (on AVS) - Bambi Watkins RN - 10/30/2024 12:01 AM EST Images from the original note were not included. [id number] What Is Angina? Angina is a warning sign that your heart muscle isn't getting enough oxygen-rich blood and is at risk for damage. Medicines, certain medical procedures, and lifestyle changes can help control angina.Talk with your healthcare provider about how to prevent angina and what to do if you get it. How does angina feel? Angina is most often described as chest pain, but this can be misleading. Angina isn't always painful, and it isn?t always felt in the chest. Angina might feel like discomfort, an aching, sharp, dull, or burning sensation, tightness or squeezing, or pressure that comes and goes. You may feel it in your chest, back, belly (abdomen), arm, shoulder, neck, or jaw. Other symptoms may include: Severe tiredness (fatigue) that gets worse, or feeling more tired than normal for no clear reason Shortness of breath while doing something that used to be easy Heartburn, indigestion, upset stomach (nausea), rapid heart rate, or sweating Feeling lightheaded or fainting Call 911 Call 911 right away if any of your symptoms: Last more than a few minutes Go away and come back Happen at rest and don't go away after taking nitroglycerin as prescribed by your healthcare provider Keep getting worse You could be having a heart attack (acute myocardial infarction). Don't drive to the hospital yourself or have someone else drive you. Call 911 for an ambulance to transport you. The emergency clinical medical transcriptionist can start treating you right away. When does angina happen? Angina usually happens during activity. It can also occur when you have emotional stress or after a large meal. Sometimes angina can happen when the weather is too hot or too cold. All of these things can put more stress on your body and your heart. You may have unstable angina if angina: o Starts occurring more often o Lasts longer o Happens even when you're resting, sleeping, or doing little physical activity o Causes more discomfort It?s a sign that your heart problem may be getting worse. You need to call your healthcare providerright away. Last Reviewed Date: 2024 00:00:00 [id number] [employer]. All rights reserved. This information is not intended as a substitute for professional medical care. Always follow your healthcare professional's instructions. * Pt Handout (on AVS) - Bambi Watkins RN - 10/30/2024 12:01 AM EST Images from the original note were not included. [id number] Uncertain Causes of Chest Pain Chest pain can happen for a number of reasons. Sometimes the cause can't be determined. If your condition does not seem serious, and your pain does not appear to be coming from your heart, your healthcare provider may recommend watching it closely. Sometimes the signs of a serious problem take moretime to appear. Many problems not related to your heart can cause chest pain. These include: Musculoskeletal. Costochondritis is an inflammation of the tissues around the ribs that can occur from trauma or overuse injuries, or a strain of the muscles of the chest wall. Respiratory. Pneumonia, collapsed lung (pneumothorax), or inflammation of the lining of the chest and lungs (pleurisy). Gastrointestinal. Esophageal reflux, heartburn, ulcers, or gallbladder disease. Anxiety and panic disorders Nerve compression and inflammation Rare problems such as aortic aneurysm or aortic dissection (a swelling of the large artery coming out of the heart or a tear in the wall of the artery), or pulmonary embolism (a blood clot in the lungs). Home care After your visit, follow these recommendations: Rest today and avoid strenuous activity. Take any prescribed medicine as directed. Be aware of any recurrent chest pain and notice any changes Follow-up care Follow up with your healthcare provider if you don't start to feel better within 24 hours, or as advised. Call 911 Call 911 if any of these occur: A change in the type of pain: if it feels different, becomes more severe, lasts longer, or begins to spread into your shoulder, arm, neck, jaw or back Shortness of breath or increased pain with breathing Weakness, dizziness, or fainting Rapid heartbeat Crushing sensation in your chest Coughing up more than a small amount of blood. When to seek medical advice Call your healthcare provider right away if any of the following occur: Cough with dark colored sputum (phlegm) or small amount of blood Fever of 100.4F (38C) or higher, or as directed by your healthcare provider Swelling, pain or redness in one leg Last Reviewed Date: 2021 00:00:00 [id number] [employer]. All rights reserved. This information is not intended as a substitute for professional medical care. Always follow your healthcare professional's instructions. documented in this encounter Plan of Treatment Upcoming Encounters Date Type Department Care Team (Late st Contact Info) Description 11/03/2024 1:00 PM EST Home Visit [facility] [address] [facility] [place] [address] [facility] Nurse [facility] [address] [facility] [place] [address] 12/03/2024 1:00 PM EST Home Visit [facility] [address] [facility] [place] [address] Mateo Irving PA-C [address] [facility] [place] [address] 06/26/2025 8:15 AM EDT Office Visit [facility] [place] [phone] David Wang MD [address] [place] [id number] Scheduled Orders Name Type Priority Associated Diagnoses Orde r Schedule CARDIAC REHAB W/ECG MONITORING Procedures Routine NSTEMI (non-ST elevated myocardial infarction) (HCC) Ordered: 10/31/2024 Scheduled Referrals Name Type Priority Associated Diagnoses Orde r Schedule CARDIAC REHAB REFERRAL OP Referral Within 10 days (routine) NSTEMI (non-ST elevated myocardial infarction) (HCC) Ordered: 10/31/2024 Health Maintenance Due Date Last Done Comments [...] this encounter Medical Devices Implanted Type Area Burglar Alarm Inspector Device Identifier Shelf Expiration Date Model / Serial / Lot Stent [place] 3.50x34 [employer] - [id number] Implanted:Qty: 1 on 10/31/2024 by Juan Manuel Ellis MD at CARDIAC LABS [facility] [employer] : VASCULAR [id number] 05/04/2027 [id number] UX / / [id number] documented as of this encounter Procedures Procedure Name Priority Date/Time Associated Diagnosis Comments HC ECG TRACING ONLY Routine 11/01/2024 8 :23 AM EST Status post cardiac catheterization GLUCOSE METER, POINT OF CARE BÁRBARA 11/01/2024 5:54 AM EST BASIC METABOLIC PANEL Routine 11/01/2024 4:17 AM EST PT INR Routine 11/01/2024 4:17 AM EST PHOSPHORUS Routine 11/01/2024 4:17 AM EST CBC STAT 11/01/2024 4:17 AM EST MAGNESIUM Routine 11/01/2024 4:17 AM EST GLUCOSE METER, POINT OF CARE BÁRBARA 10/31/2024 11:54 PM EST CBC STAT 10/31/2024 5:33 PM EST GLUCOSE METER, POINT OF CARE BÁRBARA 10/31/2024 5:00 PM EST ECHO, TTE, LIMITED Routine 10/31/2024 3: 53 PM EST NSTEMI (non-ST elevated myocardial infarction) (HCC) ACT, POINT OF CARE BÁRBARA 10/31/2024 3: 38 PM EST ACT, POINT OF CARE BÁRBARA 10/31/2024 2: 16 PM EST ACT, POINT OF CARE BÁRBARA 10/31/2024 1: 18 PM EST ACT, POINT OF CARE BÁRBARA 10/31/2024 1: 06 PM EST GLUCOSE METER, POINT OF CARE BÁRBARA 10/31/2024 11:08 AM EST GLUCOSE METER, POINT OF CARE BÁRBARA 10/31/2024 4:55 AM EST BASIC METABOLIC PANEL Routine 10/31/2024 4:44 AM EST HEPARIN, UNFRACTIONATED STAT 10/31/2024 4:44 AM EST PT INR Routine 10/31/2024 4:44 AM EST PHOSPHORUS Routine 10/31/2024 4:44 AM EST CBC STAT 10/31/2024 4:44 AM EST MAGNESIUM Routine 10/31/2024 4:44 AM EST GLUCOSE METER, POINT OF CARE BÁRBARA 10/30/2024 11:42 PM EST HEPARIN, UNFRACTIONATED STAT 10/30/2024 11:10 PM EST GLUCOSE METER, POINT OF CARE BÁRBARA 10/30/2024 4:05 PM EST HEPARIN, UNFRACTIONATED STAT 10/30/2024 2:59 PM EST GLUCOSE METER, POINT OF CARE BÁRBARA 10/30/2024 11:47 AM EST HEPARIN, UNFRACTIONATED STAT 10/30/2024 7:21 AM EST GLUCOSE METER, POINT OF CARE BÁRBARA 10/30/2024 5:51 AM EST HEMOGLOBIN A1C Routine 10/30/2024 5:31 AM EST BASIC METABOLIC PANEL Add-on 10/30/2024 5:31 AM EST PT INR Routine 10/30/2024 5:31 AM EST PHOSPHORUS Add-on 10/30/2024 5:31 AM EST CBC STAT 10/30/2024 5:31 AM EST MAGNESIUM Add-on 10/30/2024 5:31 AM EST LIPID PANEL WITHOUT DIRECT LDL Routine 10/30/2024 5:31 AM EST GLUCOSE METER, POINT OF CARE BÁRBARA 10/30/2024 12:13 AM EST TROPONIN T, HIGH SENSITIVITY Routine 10/29/2024 11:53 PM EST HEPARIN, UNFRACTIONATED STAT 10/29/2024 11:34 PM EST PT INR STAT 10/29/2024 11:34 PM EST APTT STAT 10/29/2024 11:34 PM EST CBC STAT 10/29/2024 11:34 PM EST TROPONIN T, HIGH SENSITIVITY STAT 10/29/2024 11:04 PM EST BASIC METABOLIC PANEL STAT 10/29/2024 11:04 PM EST CBC STAT 10/29/2024 11:04 PM EST documented in this encounter Results * EKG (11/01/2024 8:23 AM EST) 11/01/2024 8:23 AM EST Narrative Procedure Note Antonio Carlson MD - 11/01/2024 8:23 AM EST REASON FOR STUDY: post cath CONCLUSIONS: Sinus tachycardia Left axis deviation Right bundle branch block Cannot rule out Inferior infarct Cannot rule out Anteroseptal infarct Nonspecific ST abnormality When compared with ECG of 31-Oct-2024 14:38, Minimal criteria for Anteroseptal infarct are now Present Ventricular Rate: 109 Atrial Rate: 109 MO Interval: 194 QRS Duration: 136 QT/QTc: 340/457 ms P-R-T [place]: 39 : -70 : 67 degrees us Juan Manuel Ellis MD EKG Final Result [facility] CARDIOLOGY * GLUCOSE METER, POINT OF CARE (11/01/2024 5:54 AM EST) Pathologist [facility] GLUCOSE - POCT 113 70 - 120 mg/dL 11/01/2024 5:57 AM EST [facility] Blood Whole blood specimen / Unknown 11/01/2024 5:54 AM EST 11/01/2024 5:57 AM EST us Viral Hector MD LAB POINT OF CARE TEST DOCKED DEVICE UNSOLICITED RESULTS Final Result Performing Organization Address City/[facility]/ZIP Co de Phone Number [facility] [address] [place] [address] * PHOSPHORUS (11/01/2024 4:17 AM EST) Pathologist [facility] Phosphorus 3.9 2.5 - 4.8 mg/dL 11/01/2024 5:04 AM EST LABORATORY [facility] Blood Venous blood specimen / Unknown Venipuncture / Unknown 11/01/2024 4:17 AM EST 11/01/2024 4:34 AM EST us Antonia Cavazos DO LAB BLOOD ORDERABLES Final Resul t LABORATORY [facility] [address] [place] [address] * MAGNESIUM (11/01/2024 4:17 AM EST) Pathologist [facility] Magnesium 2.1 1.5 - 2.6 mg/dL 11/01/2024 5:04 AM EST LABORATORY [facility] Blood Venous blood specimen / Unknown Venipuncture / Unknown 11/01/2024 4:17 AM EST 11/01/2024 4:34 AM EST us Antonia Cavazos DO LAB BLOOD ORDERABLES Final Resul t Performing Organization Address City/[facility]/ZIP Co de Phone Number LABORATORY [facility] [address] [place] [address] * BASIC METABOLIC PANEL (11/01/2024 4:17 AM EST) BUN 14 6 - 20 mg/dL 11/01/2024 5:04 AM EST [facility] CREATININE 0.7 0.6 - 1.2 mg/dL 11/01/2024 5:04 AM EST [facility] EGFR >90 >=60 mL/min 11/01/2024 5:04 AM EST [facility] Comment:eGFR is calculated b ased on the CKD-EPI 2020 equation. SODIUM 139 135 - 146 mmol/L 11/01/2024 5:04 AM EST [facility] POTASSIUM 3.7 3.5 - 5.1 mmol/L 11/01/2024 5:04 AM EST [facility] CHLORIDE 100 98 - 107 mmol/L 11/01/2024 5:04 AM EST [facility] CO2 27 22 - 32 mmol/L 11/01/2024 5:04 AM EST LABORATORY C ANION GAP 12 7 - 15 mmol/L 11/01/2024 5:04 AM EST LABORATORY C GLUCOSE 120 70 - 120 mg/dL 11/01/2024 5:04 AM EST [facility] CALCIUM 9.1 8.4 - 10.2 mg/dL 11/01/2024 5:04 AM EST LABORATORY [facility] Blood Venous blood specimen / Unknown Venipuncture / Unknown 11/01/2024 4:17 AM EST 11/01/2024 4:34 AM EST us Antonia Cavazos DO LAB BLOOD ORDERABLES Final Resul t Performing Organization Address [facility] Co de Phone Number LABORATORY [facility] [address] [place] [address] * PT INR (11/01/2024 4:17 AM EST) Prothrombin Time 13.7 11.6 - 15.2 seconds 11/01/2024 4:58 AM EST LABORATORY GM INR 1.0 0.8 - 1.2 11/01/2024 4:58 AM EST LABORATORY [facility] Blood Venous blood specimen / Unknown Venipuncture / Unknown 11/01/2024 4:17 AM EST 11/01/2024 4:34 AM EST [facility] LAB[facility]AT[facility] - 11/01/2024 4:58 AM EST Warfarin Therapy INR: 2.0-3.0 conventional anticoagulation INR: 2.5-3.5 high intensity anticoagulation us Krystal Joshi DO LAB BLOOD ORDERABLES Final R esult LABORATORY [facility] [address] [place] [address] * (ABNORMAL) CBC (11/01/2024 4:17 AM EST) WBC 9.63 4.00 - 10.80 K/uL 11/01/2024 4:44 AM EST [facility] RBC 4.48 4.50 - 5.25 M/uL 11/01/2024 4:44 AM EST LAB[facility] HGB 13.0(L) 14.0 - 16.8 g/dL 11/01/2024 4:44 AM EST [facility] HCT 40.8 40.0 - 48.4 % 11/01/2024 4:44 AM EST LAB[facility]ORY [facility] MCV 91.1 82.0 - 99.5 fL 11/01/2024 4:44 AM EST [facility] MCH 29.0 27.0 - 34.0 pg 11/01/2024 4:44 AM EST LAB[facility] MCHC 31.9 32.0 - 36.0 g/dL 11/01/2024 4:44 AM EST LAB[facility] RDW 12.9 11.5 - 15.5 % 11/01/2024 4:44 AM EST [facility] PLT 157 140 - 400 K/uL 11/01/2024 4:44 AM EST [facility] MPV 10.7 6.6 - 11.1 fL 11/01/2024 4:44 AM EST [facility] nRBCs 0 <=0 /100 WBCs 11/01/2024 4:44 AM EST [facility] Blood Venous blood specimen / Unknown Venipuncture / Unknown 11/01/2024 4:17 AM EST 11/01/2024 4:34 AM EST us Krystal Joshi DO LAB BLOOD ORDERABLES Final R esult [facility] [address] [place] [address] * (ABNORMAL) GLUCOSE METER, POINT OF CARE (10/31/2024 11:54 PM EST) Pathologist [facility] GLUCOSE - POCT 152(H) 70 - 120 mg/dL 10/31/2024 11:59 PM EST [facility] Blood Whole blood specimen / Unknown 10/31/2024 11:54 PM EST 10/31/2024 11:59 PM EST us Viral Hector MD LAB POINT OF CARE TEST DOCKED DEVICE UNSOLICITED RESULTS Final Result [facility] [address] [place] [address] * (ABNORMAL) CBC (10/31/2024 5:33 PM EST) WBC 8.96 4.00 - 10.80 K/uL 10/31/2024 6:06 PM EST [facility] RBC 4.41 4.50 - 5.25 M/uL 10/31/2024 6:06 PM EST LAB[facility] HGB 12.6(L) 14.0 - 16.8 g/dL 10/31/2024 6:06 PM EST [facility] HCT 40.2 40.0 - 48.4 % 10/31/2024 6:06 PM EST LAB[facility] MCV 91.2 82.0 - 99.5 fL 10/31/2024 6:06 PM EST LAB[facility] MCH 28.6 27.0 - 34.0 pg 10/31/2024 6:06 PM EST LAB[facility] MCHC 31.3 32.0 - 36.0 g/dL 10/31/2024 6:06 PM EST LABORATORY [facility] RDW 13.0 11.5 - 15.5 % 10/31/2024 6:06 PM EST LABORATORY [facility] PLT 159 140 - 400 K/uL 10/31/2024 6:06 PM EST LABORATORY [facility] MPV 10.6 6.6 - 11.1 fL 10/31/2024 6:06 PM EST LABORATORY [facility] nRBCs 0 <=0 /100 WBCs 10/31/2024 6:06 PM EST LABORATORY [facility] Blood Venous blood specimen / Unknown Venipuncture / Unknown 10/31/2024 5:33 PM EST 10/31/2024 5:55 PM EST us Antonia Cavazos DO LAB BLOOD ORDERABLES Final Resul t LABORATORY [facility] [address] [place] [address] * (ABNORMAL) GLUCOSE METER, POINT OF CARE (10/31/2024 5:00 PM EST) [facility] GLUCOSE - POCT 180(H) 70 - 120 mg/dL 10/31/2024 5:03 PM EST [employer] [facility] Blood Whole blood specimen / Unknown 10/31/2024 5:00 PM EST 10/31/2024 5:03 PM EST us Yifan Sullivan DO LAB POINT OF CARE TE ST DOCKED DEVICE UNSOLICITED RESULTS Final Result [facility] Register My [employer] [facility] [address] [place] [address] * ECHO, TTE, LIMITED (10/31/2024 3:53 PM EST) 10/31/2024 3:07 PM EST us Antonia Cavazos DO ECHOCARDIOLOGY Final Result [facility] CARDIOLOGY * ACT, POINT OF CARE (10/31/2024 3:38 PM EST) ACT 228 50 - 1,000 secs 10/31/2024 3:49 PM EST [employer] Blood 10/31/2024 3:38 PM EST 10/31/2024 3:49 PM EST Narrative [employer] [facility] - 10/31/2024 3:49 PM EST NORMAL (NON-HEPARINIZED) 74-137 SECONDS HEPARINIZED 200+ SECONDS CRITICAL GREATER THAN 1000 SECONDS Yifan Sullivan DO LAB POINT OF CARE TE ST DOCKED DEVICE UNSOLICITED RESULTS Final Result Performing Organization Address City/[facility]/ZIP Co de Phone Number [facility] [address] [place] [address] * ACT, POINT OF CARE (10/31/2024 2:16 PM EST) [facility] ACT 273 50 - 1,000 secs 10/31/2024 2:17 PM EST [employer] Blood 10/31/2024 2:16 PM EST 10/31/2024 2:17 PM EST [employer] - 10/31/2024 2:17 PM EST NORMAL (NON-HEPARINIZED) 74-137 SECONDS HEPARINIZED 200+ SECONDS CRITICAL GREATER THAN 1000 SECONDS Yifan Sullivan DO LAB POINT OF CARE TE ST DOCKED DEVICE UNSOLICITED RESULTS Final Result Performing Organization Address City/[facility]/ZIP Co de Phone Number [employer] [facility] Register My [employer] [facility] [address] [place] [address] * ACT, POINT OF CARE (10/31/2024 1:18 PM EST) Pathologist [facility] ACT 302 50 - 1,000 secs 10/31/2024 2:00 PM EST [employer] Blood 10/31/2024 1:18 PM EST 10/31/2024 2:00 PM EST [employer] - 10/31/2024 2:00 PM EST NORMAL (NON-HEPARINIZED) 74-137 SECONDS HEPARINIZED 200+ SECONDS CRITICAL GREATER THAN 1000 SECONDS Yifan Sullivan DO LAB POINT OF CARE TE ST DOCKED DEVICE UNSOLICITED RESULTS Final Result Performing Organization Address City/[facility]/ZIP Co de Phone Number [facility] [address] [place] [address] * ACT, POINT OF CARE (10/31/2024 1:06 PM EST) Pathologist [facility] ACT 510 50 - 1,000 secs 10/31/2024 2:00 PM EST [employer] Blood 10/31/2024 1:06 PM EST 10/31/2024 2:00 PM EST Narrative [employer] - 10/31/2024 2:00 PM EST NORMAL (NON-HEPARINIZED) 74-137 SECONDS HEPARINIZED 200+ SECONDS CRITICAL GREATER THAN 1000 SECONDS us Yifan Sullivan DO LAB POINT OF CARE TE ST DOCKED DEVICE UNSOLICITED RESULTS Final Result Performing Organization Address City/[facility]/ZIP Co de Phone Number [facility] [address] [place] [address] * (ABNORMAL) GLUCOSE METER, POINT OF CARE (10/31/2024 11:08 AM EST) [facility] GLUCOSE - POCT 125(H) 70 - 120 mg/dL 10/31/2024 11:13 AM EST [employer] Blood Whole blood specimen / Unknown 10/31/2024 11:08 AM EST 10/31/2024 11:13 AM EST Yifan Sullivan DO LAB POINT OF CARE TE ST DOCKED DEVICE UNSOLICITED RESULTS Final Result Performing Organization Address City/[facility]/ZIP Co de Phone Number [facility] [address] [place] [address] * GLUCOSE METER, POINT OF CARE (10/31/2024 4:55 AM EST) [facility] GLUCOSE - POCT 115 70 - 120 mg/dL 10/31/2024 4:59 AM EST [employer] Blood Whole blood specimen / Unknown 10/31/2024 4:55 AM EST 10/31/2024 4:59 AM EST us Yifan Sullivan DO LAB POINT OF CARE TE ST DOCKED DEVICE UNSOLICITED RESULTS Final Result Performing Organization Address City/[facility] Co de Phone Number [facility] [address] [place] [address] * PHOSPHORUS (10/31/2024 4:44 AM EST) Phosphorus 4.5 2.5 - 4.8 mg/dL 10/31/2024 5:22 AM EST [facility] Blood Venous blood specimen / Unknown Venipuncture / Unknown 10/31/2024 4:44 AM EST 10/31/2024 4:52 AM EST us Antonia Cavazos DO LAB BLOOD ORDERABLES Final Resul t Performing Organization Address [facility] de Phone Number LABORATORY [facility] [address] [place] [address] * MAGNESIUM (10/31/2024 4:44 AM EST) Magnesium 2.0 1.5 - 2.6 mg/dL 10/31/2024 5:22 AM EST LABORATORY C Blood Venous blood specimen / Unknown Venipuncture / Unknown 10/31/2024 4:44 AM EST 10/31/2024 4:52 AM EST us Antonia Cavazos DO LAB BLOOD ORDERABLES Final Resul t Performing Organization Address [facility] de Phone Number LABORATORY [facility] [address] [place] [address] * (ABNORMAL) BASIC METABOLIC PANEL (10/31/2024 4:44 AM EST) BUN 16 6 - 20 mg/dL 10/31/2024 5:22 AM EST [facility] CREATININE 0.8 0.6 - 1.2 mg/dL 10/31/2024 5:22 AM EST [facility] EGFR 90 >=60 mL/min 10/31/2024 5:22 AM EST [facility]ORY [facility] Comment:eGFR is calculated b ased on the CKD-EPI 2020 equation. SODIUM 139 135 - 146 mmol/L 10/31/2024 5:22 AM EST [facility] POTASSIUM 3.4(L) 3.5 - 5.1 mmol/L 10/31/2024 5:22 AM EST [facility] CHLORIDE 100 98 - 107 mmol/L 10/31/2024 5:22 AM EST [facility] CO2 27 22 - 32 mmol/L 10/31/2024 5:22 AM EST [facility] ANION GAP 12 7 - 15 mmol/L 10/31/2024 5:22 AM EST [facility] GLUCOSE 122(H) 70 - 120 mg/dL 10/31/2024 5:22 AM EST [facility] CALCIUM 8.8 8.4 - 10.2 mg/dL 10/31/2024 5:22 AM EST LABORATORY C Blood Venous blood specimen / Unknown Venipuncture / Unknown 10/31/2024 4:44 AM EST 10/31/2024 4:52 AM EST us Antonia Cavazos DO LAB BLOOD ORDERABLES Final Resul t Performing Organization Address City/State/[facility] Co de Phone Number LABORATORY [facility] [address] [place] [address] * PT INR (10/31/2024 4:44 AM EST) Prothrombin Time 13.9 11.6 - 15.2 seconds 10/31/2024 5:31 AM EST LABORATORY C INR 1.1 0.8 - 1.2 10/31/2024 5:31 AM EST LABORATORY [facility] Blood Venous blood specimen / Unknown Venipuncture / Unknown 10/31/2024 4:44 AM EST 10/31/2024 4:52 AM EST Narrative [facility] - 10/31/2024 5:31 AM EST Warfarin Therapy INR: 2.0-3.0 conventional anticoagulation INR: 2.5-3.5 high intensity anticoagulation us Krystal Joshi DO LAB BLOOD ORDERABLES Final R esult LABORATORY [facility] [address] [place] [address] * (ABNORMAL) CBC (10/31/2024 4:44 AM EST) [facility] Signature WBC 7.34 4.00 - 10.80 K/uL 10/31/2024 5:03 AM EST [facility] RBC 4.39 4.50 - 5.25 M/uL 10/31/2024 5:03 AM EST [facility] HGB 12.7(L) 14.0 - 16.8 g/dL 10/31/2024 5:03 AM EST [facility] HCT 39.9(L) 40.0 - 48.4 % 10/31/2024 5:03 AM EST LAB[facility] MCV 90.9 82.0 - 99.5 fL 10/31/2024 5:03 AM EST [facility] MCH 28.9 27.0 - 34.0 pg 10/31/2024 5:03 AM EST [facility] MCHC 31.8 32.0 - 36.0 g/dL 10/31/2024 5:03 AM EST [facility] RDW 12.7 11.5 - 15.5 % 10/31/2024 5:03 AM EST [facility] PLT 155 140 - 400 K/uL 10/31/2024 5:03 AM EST [facility] MPV 10.7 6.6 - 11.1 fL 10/31/2024 5:03 AM EST [facility] nRBCs 0 <=0 /100 WBCs 10/31/2024 5:03 AM EST [facility] Blood Venous blood specimen / Unknown Venipuncture / Unknown 10/31/2024 4:44 AM EST 10/31/2024 4:52 AM EST Krystal Joshi DO LAB BLOOD ORDERABLES Final R esult LABORATORY [facility] [address] [place] [address] * (ABNORMAL) HEPARIN, UNFRACTIONATED (10/31/2024 4:44 AM EST) Pathologist [facility] Heparin, Unfractionated 0.45(H) <0.10 IU/mL 10/31/2024 5:33 AM EST LABORATORY [facility] Comment: Unfractionated therapeutic ranges for Anti Xa activity: For Cardiac/Neurologic treatment: 0.3 to 0.6 IU/mL. For treatment of DVT or Pulmonary Embolism: 0.3 to 0.7 IU/mL. Blood Venous blood specimen / Unknown Venipuncture / Unknown 10/31/2024 4:44 AM EST 10/31/2024 4:52 AM EST Yifan Sullivan DO LAB BLOOD ORDERABLES Final R esult LABORATORY [facility] [address] [place] [address] * (ABNORMAL) GLUCOSE METER, POINT OF CARE (10/30/2024 11:42 PM EST) [facility] GLUCOSE - POCT 136(H) 70 - 120 mg/dL 10/31/2024 4:00 AM EST [employer] [facility] Blood Whole blood specimen / Unknown 10/30/2024 11:42 PM EST 10/31/2024 4:00 AM EST Yifan Sullivan DO LAB POINT OF CARE TE ST DOCKED DEVICE UNSOLICITED RESULTS Final Result [facility] [address] [place] [address] * (ABNORMAL) HEPARIN, UNFRACTIONATED (10/30/2024 11:10 PM EST) Pathologist [facility] Heparin, Unfractionated 0.53(H) <0.10 IU/mL 10/30/2024 11:37 PM EST LABORATORY [facility] Comment: Unfractionated therapeutic ranges for Anti Xa activity: For Cardiac/Neurologic treatment: 0.3 to 0.6 IU/mL. For treatment of DVT or Pulmonary Embolism: 0.3 to 0.7 IU/mL. Blood Venous blood specimen / Unknown Venipuncture / Unknown 10/30/2024 11:10 PM EST 10/30/2024 11:15 PM EST us Yifan Sullivan DO LAB BLOOD ORDERABLES Final R esult LABORATORY [facility] [address] [place] [address] * GLUCOSE METER, POINT OF CARE (10/30/2024 4:05 PM EST) [facility] GLUCOSE - POCT 102 70 - 120 mg/dL 10/30/2024 5:43 PM EST [facility] Blood Whole blood specimen / Unknown 10/30/2024 4:05 PM EST 10/30/2024 5:43 PM EST us Yifan Sullivan DO LAB POINT OF CARE TE ST DOCKED DEVICE UNSOLICITED RESULTS Final Result Performing Organization Address [facility] Co de Phone Number [place] [address] [place] [address] * (ABNORMAL) HEPARIN, UNFRACTIONATED (10/30/2024 2:59 PM EST) [facility] Heparin, Unfractionated 0.77(H) <0.10 IU/mL 10/30/2024 3:36 PM EST LABORATORY [facility] Comment: Unfractionated therapeutic ranges for Anti Xa activity: For Cardiac/Neurologic treatment: 0.3 to 0.6 IU/mL. For treatment of DVT or Pulmonary Embolism: 0.3 to 0.7 IU/mL. Blood Venous blood specimen / Unknown Venipuncture / Unknown 10/30/2024 2:59 PM EST 10/30/2024 3:07 PM EST us Yifan Sullivan DO LAB BLOOD ORDERABLES Final R esult LABORATORY [facility] [address] [place] [address] * (ABNORMAL) GLUCOSE METER, POINT OF CARE (10/30/2024 11:47 AM EST) [facility] GLUCOSE - POCT 199(H) 70 - 120 mg/dL 10/30/2024 12:00 PM EST [employer] Blood Whole blood specimen / Unknown 10/30/2024 11:47 AM EST 10/30/2024 12:00 PM EST us Yifan Sullivan DO LAB POINT OF CARE TE ST DOCKED DEVICE UNSOLICITED RESULTS Final Result [facility] [address] [place] [address] * (ABNORMAL) HEPARIN, UNFRACTIONATED (10/30/2024 7:21 AM EST) Heparin, Unfractionated 0.20(H) <0.10 IU/mL 10/30/2024 7:47 AM EST LABORATORY [facility] Comment: Unfractionated therapeutic ranges for Anti Xa activity: For Cardiac/Neurologic treatment: 0.3 to 0.6 IU/mL. For treatment of DVT or Pulmonary Embolism: 0.3 to 0.7 IU/mL. Blood Venous blood specimen / Unknown Venipuncture / Unknown 10/30/2024 7:21 AM EST 10/30/2024 7:30 AM EST us Yifan Sullivan DO LAB BLOOD ORDERABLES Final R esult Performing Organization Address City/[facility]/ZIP Co de Phone Number [facility] [address] [place] [address] * (ABNORMAL) GLUCOSE METER, POINT OF CARE (10/30/2024 5:51 AM EST) GLUCOSE - POCT 124(H) 70 - 120 mg/dL 10/30/2024 5:54 AM EST [employer] Blood Whole blood specimen / Unknown 10/30/2024 5:51 AM EST 10/30/2024 5:54 AM EST us Yifan Sullivan DO LAB POINT OF CARE TE ST DOCKED DEVICE UNSOLICITED RESULTS Final Result [facility] [address] [place] [address] * PHOSPHORUS (10/30/2024 5:31 AM EST) Phosphorus 3.8 2.5 - 4.8 mg/dL 10/30/2024 12:11 PM EST LABORATORY [facility] Blood Venous blood specimen / Unknown Venipuncture / Unknown 10/30/2024 5:31 AM EST 10/30/2024 5:46 AM EST us Antonia Cavazos DO LAB BLOOD ORDERABLES Final Resul t LABORATORY [facility] [address] [place] [address] * MAGNESIUM (10/30/2024 5:31 AM EST) Pathologist [facility] Magnesium 2.0 1.5 - 2.6 mg/dL 10/30/2024 12:11 PM EST LABORATORY [facility] Blood Venous blood specimen / Unknown Venipuncture / Unknown 10/30/2024 5:31 AM EST 10/30/2024 5:46 AM EST us Antonia Cavazos DO LAB BLOOD ORDERABLES Final Resul t LABORATORY [facility] [address] [place] [address] * (ABNORMAL) BASIC METABOLIC PANEL (10/30/2024 5:31 AM EST) Pathologist [facility] BUN 16 6 - 20 mg/dL 10/30/2024 12:11 PM EST LABORATORY [facility] CREATININE 0.8 0.6 - 1.2 mg/dL 10/30/2024 12:11 PM EST LABORATORY [facility] EGFR 90 >=60 mL/min 10/30/2024 12:11 PM EST LABORATORY [facility] Comment:eGFR is calculated b ased on the CKD-EPI 2020 equation. SODIUM 139 135 - 146 mmol/L 10/30/2024 12:11 PM EST LAB[facility] POTASSIUM 3.8 3.5 - 5.1 mmol/L 10/30/2024 12:11 PM EST LAB[facility] CHLORIDE 99 98 - 107 mmol/L 10/30/2024 12:11 PM EST [facility] CO2 24 22 - 32 mmol/L 10/30/2024 12:11 PM EST [facility] ANION GAP 16(H) 7 - 15 mmol/L 10/30/2024 12:11 PM EST [facility] GLUCOSE 119 70 - 120 mg/dL 10/30/2024 12:11 PM EST [facility] CALCIUM 8.9 8.4 - 10.2 mg/dL 10/30/2024 12:11 PM EST LABORATORY C Blood Venous blood specimen / Unknown Venipuncture / Unknown 10/30/2024 5:31 AM EST 10/30/2024 5:46 AM EST us Antonia Cavazos DO LAB BLOOD ORDERABLES Final Resul t Performing Organization Address City/[facility] de Phone Number LABORATORY [place] [address], [place] [id number] * PT INR (10/30/2024 5:31 AM EST) Prothrombin Time 14.1 11.6 - 15.2 seconds 10/30/2024 6:20 AM EST LABORATORY [facility] INR 1.1 0.8 - 1.2 10/30/2024 6:20 AM EST LABORATORY [facility] Blood Venous blood specimen / Unknown Venipuncture / Unknown 10/30/2024 5:31 AM EST 10/30/2024 5:46 AM EST Narrative LABORATORY C - 10/30/2024 6:20 AM EST Warfarin Therapy INR: 2.0-3.0 conventional anticoagulation INR: 2.5-3.5 high intensity anticoagulation us Krystal Joshi DO LAB BLOOD ORDERABLES Final R esult Performing Organization Address City/[facility] Co de Phone Number LABORATORY [facility] [address] [place] [address] * (ABNORMAL) CBC (10/30/2024 5:31 AM EST) WBC 7.13 4.00 - 10.80 K/uL 10/30/2024 5:57 AM EST LABORATORY GM RBC 4.42 4.50 - 5.25 M/uL 10/30/2024 5:57 AM EST LAB[facility]ATORY [facility] HGB 13.1(L) 14.0 - 16.8 g/dL 10/30/2024 5:57 AM EST LAB[facility] HCT 40.3 40.0 - 48.4 % 10/30/2024 5:57 AM EST LAB[facility] MCV 91.2 82.0 - 99.5 fL 10/30/2024 5:57 AM EST LAB[facility] MCH 29.6 27.0 - 34.0 pg 10/30/2024 5:57 AM EST LABORATORY GM MCHC 32.5 32.0 - 36.0 g/dL 10/30/2024 5:57 AM EST LABORATORY [facility] RDW 12.9 11.5 - 15.5 % 10/30/2024 5:57 AM EST LABORATORY [facility] PLT 165 140 - 400 K/uL 10/30/2024 5:57 AM EST LABORATORY [facility] MPV 10.6 6.6 - 11.1 fL 10/30/2024 5:57 AM EST LABORATORY [facility] nRBCs 0 <=0 /100 WBCs 10/30/2024 5:57 AM EST LABORATORY [facility] Blood Venous blood specimen / Unknown Venipuncture / Unknown 10/30/2024 5:31 AM EST 10/30/2024 5:46 AM EST us Krystal Joshi DO LAB BLOOD ORDERABLES Final R esult Performing Organization Address City/State/[facility] Co de Phone Number LABORATORY [facility] [address] [place] [address] * (ABNORMAL) HEMOGLOBIN A1C (10/30/2024 5:31 AM EST) Hemoglobin A1C 6.2(H) 4.0 - 5.6 % 10/30/2024 6:07 AM EST LABORATORY GM Comment:The use of HbA1c to monitor glycemic status is based on normal hemoglobin and HbA composition. This test should not be used in patients with abnormal hemoglobin that affects the half life of the red blood cell or the in vivo glycation rates. Estimated Average Glucose 131(H) <126 mg/dL 10/30/2024 6:07 AM EST LABORATORY [facility] Blood Venous blood specimen / Unknown Venipuncture / Unknown 10/30/2024 5:31 AM EST 10/30/2024 5:46 AM EST us Krystal Joshi DO LAB BLOOD ORDERABLES Final R esult LABORATORY [facility] [address] [place] [address] * LIPID PANEL WITHOUT DIRECT LDL (10/30/2024 5:31 AM EST) Triglycerides 88 <=174 mg/dL 10/30/2024 6:19 AM EST LABORATORY [facility] Comment: Triglyceride Reference Ranges (mg/dL): <150 Acceptable 150-174 Borderline high 175-499 High >=500 Very high Cholesterol 132 <200 mg/dL 10/30/2024 6:19 AM EST LABORATORY [facility] Comment: Total Cholesterol Reference Ranges (mg/dL): <200 Desirable 200-239 Borderline high >=240 High HDL Cholesterol 45 >39 mg/dL 6:19 AM EST LABORATORY [facility] Comment: HDL Cholesterol Reference Ranges (mg/dL): >=60 High (Desirable) <50 Low (Undesirable) For Females <40 Low (Undesirable) For Males Non-HDL Cholesterol 87 <=159 mg/dL 10/30/2024 6:19 AM EST LABORATORY [facility] Comment: Non-HDL Cholesterol Reference Range (mg/dL): <100 Target level for high risk ASCVD patient <130 Optimal for general population 130-159 Near optimal for general population 160-189 Borderline High 190-219 High >=220 Very High LDL Cholesterol 69 <=129 mg/dL 10/30/2024 6:19 AM EST LABORATORY [facility] Comment: LDL Cholesterol Reference Ranges (mg/dL): <70 Target level for high risk ASCVD patient <100 Optimal for general population 100-129 Near optimal for general population 130-159 Borderline high 160-189 High >=190 Very high Blood Venous blood specimen / Unknown Venipuncture / Unknown 10/30/2024 5:31 AM EST 10/30/2024 5:46 AM EST Krystal Joshi DO LAB BLOOD ORDERABLES Final R esult LABORATORY [facility] [address] [place] [address] * GLUCOSE METER, POINT OF CARE (10/30/2024 12:13 AM EST) Pathologist [facility] GLUCOSE - POCT 120 70 - 120 mg/dL 10/30/2024 12:15 AM EST [facility] Blood Whole blood specimen / Unknown 10/30/2024 12:13 AM EST 10/30/2024 12:15 AM EST Yifan Sullivan DO LAB POINT OF CARE TE ST DOCKED DEVICE UNSOLICITED RESULTS Final Result Performing Organization Address [facility] Co de Phone Number [facility] [address] [place] [address] * (ABNORMAL) TROPONIN T, HIGH SENSITIVITY (10/29/2024 11:53 PM EST) [facility] Troponin T, High Sensitivity 167(HH) <=22 ng/L 10/30/2024 12:29 AM EST LABORATORY [facility] Blood Venous blood specimen / Unknown Venipuncture / Unknown 10/29/2024 11:53 PM EST 10/29/2024 11:57 PM EST Krystal Joshi DO LAB BLOOD ORDERABLES Final R esult Performing Organization Address City/[facility]/ZIP Co de Phone Number LABORATORY [facility] [address] [place] [address] * HEPARIN, UNFRACTIONATED (10/29/2024 11:34 PM EST) Pathologist [facility] Heparin, Unfractionated <0.10 <0.10 IU/mL 10/30/2024 12:30 AM EST LABORATORY [facility] Comment: Unfractionated therapeutic ranges for Anti Xa activity: For Cardiac/Neurologic treatment: 0.3 to 0.6 IU/mL. For treatment of DVT or Pulmonary Embolism: 0.3 to 0.7 IU/mL. Blood Venous blood specimen / Unknown Venipuncture / Unknown 10/29/2024 11:34 PM EST 10/29/2024 11:56 PM EST Krystal Joshi LAB BLOOD ORDERABLES Final R esult LAB[facility]ATORY [facility] [address], [place] [id number] * (ABNORMAL) CBC (10/29/2024 11:34 PM EST) WBC 8.52 4.00 - 10.80 K/uL 10/30/2024 12:07 AM EST LAB[facility]ATORY [facility] RBC 4.23 4.50 - 5.25 M/uL 10/30/2024 12:07 AM EST LAB[facility] HGB 12.5(L) 14.0 - 16.8 g/dL 10/30/2024 12:07 AM EST LAB[facility] HCT 38.1(L) 40.0 - 48.4 % 10/30/2024 12:07 AM EST LAB[facility] MCV 90.1 82.0 - 99.5 fL 10/30/2024 12:07 AM EST LAB[facility] MCH 29.6 27.0 - 34.0 pg 10/30/2024 12:07 AM EST [facility] MCHC 32.8 32.0 - 36.0 g/dL 10/30/2024 12:07 AM EST [facility] RDW 12.9 11.5 - 15.5 % 10/30/2024 12:07 AM EST LAB[facility]ORY [facility] PLT 160 140 - 400 K/uL 10/30/2024 12:07 AM EST [facility] MPV 10.8 6.6 - 11.1 fL 10/30/2024 12:07 AM EST LAB[facility] nRBCs 0 <=0 /100 WBCs 10/30/2024 12:07 AM EST [facility] Blood Venous blood specimen / Unknown Venipuncture / Unknown 10/29/2024 11:34 PM EST 10/29/2024 11:56 PM EST Krystal Joshi [employer] LAB BLOOD ORDERABLES Final R esult LABORATORY [facility] [address] [place] [address] * APTT (10/29/2024 11:34 PM EST) aPTT 31 21 - 38 seconds 10/30/2024 12:30 AM EST LABORATORY [facility] Blood Venous blood specimen / Unknown Venipuncture / Unknown 10/29/2024 11:34 PM EST 10/29/2024 11:56 PM EST Narrative LABORATORY [facility] - 10/30/2024 12:30 AM EST Anticoagulation may affect testing. Refer to [employer] Test Catalog for a list of effects. Krystal Joshi [employer] LAB BLOOD ORDERABLES Final R esult Performing Organization Address [facility] Co de Phone Number LABORATORY [place] [address] [place] [address] * PT INR (10/29/2024 11:34 PM EST) Prothrombin Time 13.9 11.6 - 15.2 seconds 10/30/2024 12:23 AM EST LABORATORY [facility] INR 1.1 0.8 - 1.2 10/30/2024 12:23 AM EST LABORATORY [facility] Blood Venous blood specimen / Unknown Venipuncture / Unknown 10/29/2024 11:34 PM EST 10/29/2024 11:56 PM EST Narrative LABORATORY [facility] - 10/30/2024 12:23 AM EST Warfarin Therapy INR: 2.0-3.0 conventional anticoagulation INR: 2.5-3.5 high intensity anticoagulation Krystal Joshi [employer] LAB BLOOD ORDERABLES Final R esult LABORATORY [facility] [address] [place] [address] * (ABNORMAL) TROPONIN T, HIGH SENSITIVITY (10/29/2024 11:04 PM EST) Troponin T, High Sensitivity 168(HH) <=22 ng/L 10/29/2024 11:39 PM EST [facility] Blood Venous blood specimen / Unknown Venipuncture / Unknown 10/29/2024 11:04 PM EST 10/29/2024 11:08 PM EST Sheryl Thorpe MD LAB BLOOD ORDERABLES Final Result [facility] [address] [place] [address] * (ABNORMAL) BASIC METABOLIC PANEL (10/29/2024 11:04 PM EST) Pathologist [facility] BUN 17 6 - 20 mg/dL 10/29/2024 11:37 PM EST [facility] CREATININE 1.0 0.6 - 1.2 mg/dL 10/29/2024 11:37 PM EST LAB[facility] EGFR 75 >=60 mL/min 10/29/2024 11:37 PM EST LAB[facility]ORY [facility] Comment:eGFR is calculated b ased on the CKD-EPI 2020 equation. SODIUM 139 135 - 146 mmol/L 10/29/2024 11:37 PM EST [facility] POTASSIUM 3.5 3.5 - 5.1 mmol/L 10/29/2024 11:37 PM EST [facility] CHLORIDE 98 98 - 107 mmol/L 10/29/2024 11:37 PM EST [facility] CO2 27 22 - 32 mmol/L 10/29/2024 11:37 PM EST [facility] ANION GAP 14 7 - 15 mmol/L 10/29/2024 11:37 PM EST [facility] GLUCOSE 127(H) 70 - 120 mg/dL 10/29/2024 11:37 PM EST [facility] CALCIUM 8.6 8.4 - 10.2 mg/dL 10/29/2024 11:37 PM EST [facility] Blood Venous blood specimen / Unknown Venipuncture / Unknown 10/29/2024 11:04 PM EST 10/29/2024 11:08 PM EST Sheryl Thorpe MD LAB BLOOD ORDERABLES Final Result LABORATORY [facility] [address] [place] [address] * (ABNORMAL) CBC (10/29/2024 11:04 PM EST) WBC 8.75 4.00 - 10.80 K/uL 10/29/2024 11:16 PM EST LAB[facility] RBC 4.37 4.50 - 5.25 M/uL 10/29/2024 11:16 PM EST LAB[facility] HGB 13.0(L) 14.0 - 16.8 g/dL 10/29/2024 11:16 PM EST [facility] HCT 39.8(L) 40.0 - 48.4 % 10/29/2024 11:16 PM EST [facility] MCV 91.1 82.0 - 99.5 fL 10/29/2024 11:16 PM EST [facility] MCH 29.7 27.0 - 34.0 pg 10/29/2024 11:16 PM EST [facility] MCHC 32.7 32.0 - 36.0 g/dL 10/29/2024 11:16 PM EST [facility] RDW 12.7 11.5 - 15.5 % 10/29/2024 11:16 PM EST [facility] PLT 165 140 - 400 K/uL 10/29/2024 11:16 PM EST [facility] MPV 10.2 6.6 - 11.1 fL 10/29/2024 11:16 PM EST [facility] nRBCs 0 <=0 /100 WBCs 10/29/2024 11:16 PM EST [facility] Blood Venous blood specimen / Unknown Venipuncture / Unknown 10/29/2024 11:04 PM EST 10/29/2024 11:08 PM EST us Sheryl Thorpe MD LAB BLOOD ORDERABLES Final Result LABORATORY [facility] [address] [place] [address] documented in this encounter Visit Diagnoses Diagnosis Lump on neck- Primary Swelling, mass, or lump in head and neck Type 2 diabetes mellitus with diabetic peripheral angiopathy without gangrene, without long-term current use of insulin (HCC) Chronic respiratory failure with hypoxia (HCC) Chronic respiratory failure Dyslipidemia, goal to be determined Other and unspecified hyperlipidemia HTN, goal below 140/90 Unspecified essential hypertension Aortic atherosclerosis ([facility]) Atherosclerosis of aorta Advanced care planning/counseling discussion Other specified counseling COPD, group D, by GOLD 2017 classification ([facility]) SANJAY (obstructive sleep apnea) Obstructive sleep apnea (adult) (pediatric) Marijuana smoker Cannabis abuse, unspecified Chronic bilateral low back pain without sciatica NSTEMI (non-ST elevated myocardial infarction) ([facility])- Primary Acute myocardial infarction, subendocardial infarction, episode of care unspecified NSTEMI (non-ST elevated myocardial infarction) ([facility]) Acute myocardial infarction, subendocardial infarction, episode of care unspecified Chest pain Chest pain, unspecified Status post cardiac catheterization Other postprocedural status Type 2 diabetes mellitus with hemoglobin A1c goal of less than 7.0% ([facility]) Coronary atherosclerosis of [place] coronary artery COPD, group D, by GOLD 2017 classification ([facility]) Tobacco abuse Tobacco use disorder RBBB (right bundle branch block) Right bundle branch block HTN, goal below 140/90 Unspecified essential hypertension Dyslipidemia, goal to be determined Other and unspecified hyperlipidemia SANJAY (obstructive sleep apnea) Obstructive sleep apnea (adult) (pediatric) Marijuana smoker Cannabis abuse, unspecified Type 2 diabetes mellitus with diabetic peripheral angiopathy without gangrene ([facility]) Type II or unspecified type diabetes mellitus with peripheral circulatory disorders, not stated as uncontrolled documented in this encounter Administered Medications Inactive Administered Medications - up to 3 most recent administrations Medication Order MAR Action Action Date Dose Rate Site Acetaminophen (Tylenol) tab 975 mg 975 mg, Oral, ONCE, On Mon10/30/24 at 0730, For 1 dose, Maximum of 4 grams (4000 mg) per day. Given 10/30/2024 7:09 AM EST 975 mg Acetaminophen (Tylenol) tab 975 mg 975 mg, Oral, Q6H PRN Pain, Mild, Pain, Moderate, Starting on Mon10/31/24 at 1559, Until Mon11/01/24 at 1815, Maximum of 4 grams (4000 mg) per day. Given 10/31/2024 4:05 PM EST 975 mg aspirin chew tab 81 mg 81 mg, Oral, Daily(AM), First dose on Mon11/01/24 at 0900, Until Discontinued Given 11/01/2024 7:54 AM EST 81 mg aspirin enteric coated tab 81 mg 81 mg, Oral, Daily(AM), First dose on Mon10/30/24 at 0900, Until Discontinued Given 10/31/2024 7:41 AM EST 81 mg Given 10/30/2024 8:56 AM EST 81 mg atorvaSTATin (Lipitor) tab 80 mg 80 mg, Oral, Q1700, First dose (after last modification) on Mon10/30/24 at 1700, Until Discontinued Given 10/31/2024 5:19 PM EST 80 mg Given 10/30/2024 4:55 PM EST 80 mg Cangrelor (Kengreal) 50 mg in NSS 250 mL INFUSION Final Conc = 200 mcg/mL Intravenous, 4 mcg/kg/min 93.1 kg (111.72 mL/hr), Start infusion immediately after administration of the bolus. Continue infusion for at least 2 hours or for the duration of the PCI, whichever is longer., CONTINUOUS, Starting on Dorinda 10/31/24 at 1430, Until Mon10/31/24 at 1646, Intra-Op New Bag 10/31/2024 2:14 PM EST 4 mcg/kg/min 111.72 mL/hr Cangrelor (Kengreal) inj 2,794 mcg 2,794 mcg (rounded from 2,793 mcg = 30 mcg/kg 93.1 kg), IV Push, ONCE, On Dorinda 10/31/24 at 1430, For 1 dose, Obtain bolus volume from the prepared bag and administer rapidly over less than 1 minute via manual IV push. Ensure the bolus is completely administered before the start of PCI. Start the infusion immediately after administration of the bolus., Intra-Op Given 10/31/2024 2:03 PM EST 2,794 mcg citalopram (CeleXA) tab 10 mg 10 mg, Oral, Daily(AM), First dose on Mon10/30/24 at 0900, Until Discontinued Given 11/01/2024 7:54 AM EST 10 mg Given 10/31/2024 7:41 AM EST 10 mg Given 10/30/2024 8:56 AM EST 10 mg dextrose 50% inj 25 mL 25 mL, IV Push, PRN Hypoglycemia, Other, For blood glucose 54 - 69 mg/dL or 70 - 100 mg/dL with symptoms AND patient is unresponsive, NPO, OR unable to swallow, Starting on Mon10/29/24 at 2336, Until Mon11/01/24 at 1815, Administer IV. Recheck blood glucose after 15 minutes. Notify provider. dextrose 50% inj 50 mL 50 mL, IV Push, PRN Hypoglycemia, Other, For blood glucose below 54 mg/dL AND patient unresponsive, NPO, OR unable to swallow, Starting on Mon10/29/24 at 2336, Until Mon11/01/24 at 1815, Administer IV. Recheck blood glucose in 15 minutes. Notify provider. fentaNYL (PF) inj 25 mcg 25 mcg, IV Push, PRN Pain, Severe, Starting on Mon10/31/24 at 1230, Until Mon10/31/24 at 1429, For 2 hours, To be administered in Cardiac Delivery Assistant intra-procedure only When given IV Push its recommended that the dose be given over 3 to 5 minutes., Intra-Op Given 10/31/2024 1:06 PM EST 25 mcg Given 10/31/2024 12:36 PM EST 25 mcg Nzeiwnvarqe-Bosypcgpvbkf-Vgnqdfgdyd (Trelegy Ellipta) 100-62.5-25 MCG/ACT inhaler 1 Puff 1 Puff, Inhalation, Daily(AM), First dose on Mon10/30/24 at 0900, Until Discontinued, NURSING TO FOLLOW PATIENT WITH MDI/DPI ADMINISTRATION Given 11/01/2024 7:53 AM EST 1 Puff Given 10/31/2024 7:41 AM EST 1 Puff Given 10/30/2024 7:33 AM EST 1 Puff glucagon (Glucagen) inj 1 mg 1 mg, Intramuscular, PRN Hypoglycemia, Other, If patient is unresponsive, or NPO and has no IV access, Starting on Mon10/29/24 at 2336, Until Mon11/01/24 at 1815, NPO and no IV access with either 1) blood glucose less than 100 mg/dL and symptomatic OR 2) blood glucose less than 70 mg/dL and asymptomatic Glucose (Glutose 15) 40 % gel 15 g of glucose 15 g of glucose, Oral, PRN Hypoglycemia (low sugar), Other, For blood glucose 54 - 69 mg/dL or 70 - 100 mg/dL with symptoms AND patient alert WITH difficulty chewing/swallowing, Starting on Mon10/29/24 at 2336, Until Mon11/01/24 at 1815, Administer gel. Recheck blood glucose after 15 minutes. Notify provider. 37.5 gram tube = 15 grams glucose = 1 each Glucose (Glutose 15) 40 % gel 30 g of glucose 30 g of glucose, Oral, PRN Hypoglycemia (low sugar), Other, For blood glucose below 54 mg/dL AND patient alert WITH difficulty chewing/swallowing, Starting on Mon10/29/24 at 2336, Until Mon11/01/24 at 1815, Administer gel. Recheck blood glucose after 15 minutes. Notify provider. 37.5 gram tube = 15 grams glucose = 1 each glucose chew tab 16 g 16 g, Oral, PRN Hypoglycemia, Other, For blood glucose 54 - 69 mg/dL or 70 - 100 mg/dL with symptoms and patient alert without difficulty chewing/swallowing., Starting on Mon10/29/24 at 2336, Until Mon11/01/24 at 1815 hEParin 1000 UNIT/ML inj 2,400 Units 2,400 Units (rounded from 2,367 Units = 30 Units/kg 78.9 kg Adjusted weight), IV Push, PRN Other, If most recent Heparin Assay result is less than or equal to 0.2 units/mL, Starting on Mon10/29/24 at 2323, Until Mon10/31/24 at 1647, Repeat Heparin Assay 6 hours after bolus is administered. Given 10/30/2024 8:53 AM EST 2,400 Units hEParin 25,000 units in 250 mL (Xa-Cardiac) infusion Intravenous, at 0-23.67 mL/hr, Start heparin as soon as baseline labs are drawn. Please select this medication from the infusion pump library! Concentration: 100 units/mL Expires 96 hours after spiking on (date) at (hour) , TITRATE, Starting on Mon10/30/24 at 0130, Until Mon10/31/24 at 1647 Rate Verify 10/31/2024 7:07 AM EST 13 Units/kg/hr 10.26 mL/hr Rate Verify 10/31/2024 4:07 AM EST 13 Units/kg/hr 10.25 mL /hr Rate Verify 10/31/2024 12:23 AM EST 13 Units/kg/hr 10.25 m L/hr hEParin inj 5,000 Units 5,000 Units, IV Push, PRN Other, Anticoagulation not at goal, Starting on Mon10/31/24 at 1230, Until Mon10/31/24 at 1429, For 2 hours, To be administered in Cardiac Delivery Assistant intra-procedure., Intra-Op Given 10/31/2024 12:47 PM EST 9,000 Units insulin aspart (NovoLOG) inj Subcutaneous, Q6H, First dose on Mon10/30/24 at 0015, Until Discontinued, MEDIUM DOSE (Usual starting dose): Sliding Scale Correctional insulin may be given if the patient is NPO. Dose based on standard build from Insulin Calculator. Do not modify insulin doses in administration instructions!, Glucose less than 70 instructions: Obtain STAT lab blood glucose and call covering provider., Glucose 80-150 (units): 0, Glucose 151-200 (units): 2, Glucose 201-250 (units): 4, Glucose 251-300 (units): 6, Glucose greater than 300 (units): 8, Glucose greater than 300 instructions: Give suggested insulin dose and call covering provider. Given 10/30/2024 12:43 PM EST 2 Units Arm Right Upper insulin aspart (NovoLOG) inj Subcutaneous, Q6H, First dose on Mon10/31/24 at 0700, Until Discontinued, LOW DOSE (Elderly insulin sensitive patient): Sliding Scale Correctional insulin may be given if the patient is NPO. Dose based on standard build from Insulin Calculator. Do not modify insulin doses in administration instructions!, Glucose less than 70 instructions: Obtain STAT lab blood glucose and call covering provider., Glucose 80-150 (units): 0, Glucose 151-200 (units): 1, Glucose 201-250 (units): 2, Glucose 251-300 (units): 3, Glucose greater than 300 (units): 4, Glucose greater than 300 instructions: Give suggested insulin dose and call covering provider. Given 11/01/2024 11:52 AM EST 1 Units Arm Left Upper Given 11/01/2024 12:54 AM EST 1 Units A rm Right Upper Given 10/31/2024 5:19 PM EST 1 Units Ar m Left Upper Iopamidol (Isovue 370) inj 80 mL 80 mL, Intracoronary, ONCE, On Dorinda 10/31/24 at 1445, For 1 dose, Intra-Op Given 10/31/2024 2:13 PM EST 80 mL Lidocaine (Aspercreme) 4 % patch 1 Patch 1 Patch, Transdermal, Daily(AM), First dose on Mon10/30/24 at 0900, Until Discontinued, Apply patch for 12 hours then remove for 12 hours! Remove any Lidocaine patches the patient may currently be wearing prior to applying the new patch Patch Applied 11/01/2024 7:53 AM EST 1 Patch Randi k Right Patch Applied 10/31/2024 7:40 AM EST 1 Patch Back Right Patch Applied 10/30/2024 8:56 AM EST 1 Patch Back Right Lisinopril (Prinivil) tab 5 mg 5 mg, Oral, Daily(AM), First dose on Mon10/30/24 at 0900, Until Discontinued Given 10/31/2024 7:41 AM EST 5 mg Given 10/30/2024 8:56 AM EST 5 mg midazolam (Versed) 2 MG/2ML inj 1 mg 1 mg, IV Push, PRN Anxiety, Starting on Mon10/31/24 at 1230, Until Dorinda 10/31/24 at 1429, For 2 hours, To be administered in Cardiac Delivery Assistant intra-procedure only, Intra-Op Given 10/31/2024 1:06 PM EST 0.5 mg Given 10/31/2024 12:36 PM EST 1 mg potassium chloride ER tab 30 mEq 30 mEq, Oral, Q4H, First dose on Mon10/31/24 at 0800, Last dose on Mon10/31/24 at 1200, For 2 doses, This med should NOT be Crushed or Chewed Given 10/31/2024 11:14 AM EST 30 mEq Given 10/31/2024 7:41 AM EST 30 mEq potassium chloride ER tab 30 mEq 30 mEq, Oral, ONCE, On Mon11/01/24 at 0545, For 1 dose, This med should NOT be Crushed or Chewed Given 11/01/2024 7:55 AM EST 30 mEq potassium chloride ER tab 40 mEq 40 mEq, Oral, ONCE, On Mon10/30/24 at 0030, For 1 dose, This med should NOT be Crushed or Chewed Given 10/30/2024 12:23 AM EST 40 mEq Roflumilast (Daliresp) tab 500 mcg 500 mcg, Oral, Daily(AM), First dose on Mon10/30/24 at 0900, Until Discontinued Given 11/01/2024 7:54 AM EST 500 mcg Given 10/31/2024 7:41 AM EST 500 mcg Given 10/30/2024 8:55 AM EST 500 mcg Ticagrelor (Brilinta) tab 180 mg 180 mg, Oral, ONCE, On Mon10/31/24 at 1500, For 1 dose, Post-op Given 10/31/2024 3:49 PM EST 180 mg Ticagrelor (Brilinta) tab 90 mg 90 mg, Oral, BID (.AM/PM), First dose on Mon10/31/24 at 2100, Until Discontinued Given 11/01/2024 7:54 AM EST 90 mg Given 10/31/2024 9:23 PM EST 90 mg Torsemide (Demadex) tab 40 mg 40 mg, Oral, BID (0800, NOON), First dose on Mon10/30/24 at 0800, Until Discontinued Given 11/01/2024 11:52 AM EST 40 mg Given 11/01/2024 7:54 AM EST 40 mg Given 10/31/2024 11:13 AM EST 40 mg documented in this encounter Active and Recently Administered Medications Times are shown in EST. Scheduled Medication Order 10/30/2024 10/31/2024 11/01/2024 Acetaminophen (Tylenol) tab 975 mg (COMPLETED) 975 mg, Oral, ONCE, On Mon10/30/24 at 0730, For 1 dose, Maximum of 4 grams (4000 mg) per day. 0709 (Given - Provider: Patricia Trinidad RN) aspirin chew tab 81 mg 81 mg, Oral, Daily(AM), First dose on Mon11/01/24 at 0900, Until Discontinued 0754 (Given - Provider: Yamil Bender, CHAMP) aspirin enteric coated tab 81 mg (CANCELED) 81 mg, Oral, Daily(AM), First dose on Mon10/30/24 at 0900, Until Discontinued 0856 (Given - Provider: Christine Vilchis RN) 0741 (Given - Provider: Yamil Bender RN) atorvaSTATin (Lipitor) tab 80 mg 80 mg, Oral, Q1700, First dose (after last modification) on Mon10/30/24 at 1700, Until Discontinued 1655 (Given - Provider: Christine Vilchis RN) 1719 (Given - Provider: Yamil Bender RN) Cangrelor (Kengreal) inj 2,794 mcg (COMPLETED) 2,794 mcg (rounded from 2,793 mcg = 30 mcg/kg 93.1 kg), IV Push, ONCE, On Dorinda 10/31/24 at 1430, For 1 dose, Obtain bolus volume from the prepared bag and administer rapidly over less than 1 minute via manual IV push. Ensure the bolus is completely administered before the start of PCI. Start the infusion immediately after administration of the bolus., Intra-Op 1403 (Given - Provider: Senia Weinberg RN) citalopram (CeleXA) tab 10 mg 10 mg, Oral, Daily(AM), First dose on Mon10/30/24 at 0900, Until Discontinued 0856 (Given - Provider: Christine Vilchis RN) 0741 (Given - Provider: Yamil Bender RN) 0754 (Given - Provider: Yamil Bender RN) Fluticasone-Umeclidinium -Vilanterol (Trelegy Ellipta) 100-62.5-25 MCG/ACT inhaler 1 Puff 1 Puff, Inhalation, Daily(AM), First dose on Mon10/30/24 at 0900, Until Discontinued, NURSING TO FOLLOW PATIENT WITH MDI/DPI ADMINISTRATION 0733 (Given - Provider: Bridget Vee, CUSTODIAL MANAGER) 0741 (Given - Provider: Yamil Bender, CHAMP) 0753 (Given - Provider: Yamil Bender, CHAMP) insulin aspart (NovoLOG) inj (CANCELED) Subcutaneous, Q6H, First dose on Mon10/30/24 at 0015, Until Discontinued, MEDIUM DOSE (Usual starting dose): Sliding Scale Correctional insulin may be given if the patient is NPO. Dose based on standard build from Insulin Calculator. Do not modify insulin doses in administration instructions!, Glucose less than 70 instructions: Obtain STAT lab blood glucose and call covering provider., Glucose 80-150 (units): 0, Glucose 151-200 (units): 2, Glucose 201-250 (units): 4, Glucose 251-300 (units): 6, Glucose greater than 300 (units): 8, Glucose greater than 300 instructions: Give suggested insulin dose and call covering provider. 0025 (Not Given - Provider: Patricia Trinidad RN - Reason: Parameter(s) Not Met)0626 (Not Given - Provider: Patricia Trinidad RN - Reason: Parameter(s) Not Met)1243 (Given - Provider: Christine Vilchis RN)1800 (Not Given - Provider: Christine Vilchis RN - Reason: Parameter(s) Not Met)2344 (Not Given - Provider: Patricia Trinidad RN - Reason: Parameter(s) Not Met) 0456 (Not Given - Provider: Patricia Trinidad RN - Reason: Parameter(s) Not Met) insulin aspart (NovoLOG) inj Subcutaneous, Q6H, First dose on Mon10/31/24 at 0700, Until Discontinued, LOW DOSE (Elderly insulin sensitive patient): Sliding Scale Correctional insulin may be given if the patient is NPO. Dose based on standard build from Insulin Calculator. Do not modify insulin doses in administration instructions!, Glucose less than 70 instructions: Obtain STAT lab blood glucose and call covering provider., Glucose 80-150 (units): 0, Glucose 151-200 (units): 1, Glucose 201-250 (units): 2, Glucose 251-300 (units): 3, Glucose greater than 300 (units): 4, Glucose greater than 300 instructions: Give suggested insulin dose and call covering provider. 0700 (No Insulin - Provider: Yamil Bender RN - Reason: Parameter(s) Not Met)1200 (No Insulin - Provider: Yamil Bender RN - Reason: Parameter(s) Not Met)1719 (Given - Provider: Yamil Bender RN) 0054 (Given - Provider: Max Jaramillo RN)0600 (No Insulin - Provider: Max Jaramillo RN - Reason: Parameter(s) Not Met)1152 (Given - Provider: Yamil Bender RN) Iopamidol (Isovue 370) inj 80 mL (COMPLETED) 80 mL, Intracoronary, ONCE, On Mon10/31/24 at 1445, For 1 dose, Intra-Op 1413 (Given - Provider: JOVITA Singh) Lidocaine (Aspercreme) 4 % patch 1 Patch 1 Patch, Transdermal, Daily(AM), First dose on Mon10/30/24 at 0900, Until Discontinued, Apply patch for 12 hours then remove for 12 hours! Remove any Lidocaine patches the patient may currently be wearing prior to applying the new patch 0856 (Patch Applied - Provider: Christine Vilchis RN)2056 (Patch Removed - Provider: Patricia Trinidad RN) 0740 (Patch Applied - Provider: Yamil Bender RN)1940 (Patch Removed - Provider: Max Jaramillo RN) 0753 (Patch Applied - Provider: Yamil Bender RN)1415 (Due: Patch Removed - Provider: Discharge, Physician - Comment: Time automatically adjusted from order being discontinued) Lisinopril (Prinivil) tab 5 mg (CANCELED) 5 mg, Oral, Daily(AM), First dose on Mon10/30/24 at 0900, Until Discontinued 0856 (Given - Provider: Christine Vilchis RN) 0741 (Given - Provider: Yamil Bender RN) potassium chloride ER tab 30 mEq (COMPLETED) 30 mEq, Oral, Q4H, First dose on Mon10/31/24 at 0800, Last dose on Mon10/31/24 at 1200, For 2 doses, This med should NOT be Crushed or Chewed 0741 (Given - Provider: Yamil Bender RN)1114 (Given - Provider: Yamil Bender RN) potassium chloride ER tab 30 mEq (COMPLETED) 30 mEq, Oral, ONCE, On Mon11/01/24 at 0545, For 1 dose, This med should NOT be Crushed or Chewed 0755 (Given - Provider: Yamil Bender RN) potassium chloride ER tab 40 mEq (COMPLETED) 40 mEq, Oral, ONCE, On Mon10/30/24 at 0030, For 1 dose, This med should NOT be Crushed or Chewed 0023 (Given - Provider: Patricia Trinidad RN) Roflumilast (Daliresp) tab 500 mcg 500 mcg, Oral, Daily(AM), First dose on Mon10/30/24 at 0900, Until Discontinued 0855 (Given - Provider: Christine Vilchis RN) 0741 (Given - Provider: Yamil Bender RN) 0754 (Given - Provider: Yamil Bender RN) Ticagrelor (Brilinta) tab 180 mg (COMPLETED) 180 mg, Oral, ONCE, On Mon10/31/24 at 1500, For 1 dose, Post-op 1549 (Given - Provider: Holly Tuttle, CHAMP) Ticagrelor (Brilinta) tab 90 mg 90 mg, Oral, BID (.AM/PM), First dose on Mon10/31/24 at 2100, Until Discontinued 2123 (Given - Provider: Max Jaramillo RN) 0754 (Given - Provider: Yamil Bender RN) Torsemide (Demadex) tab 40 mg 40 mg, Oral, BID (0800, NOON), First dose on Mon10/30/24 at 0800, Until Discontinued 0856 (Given - Provider: Christine Vilchis RN)1243 (Given - Provider: Christine Vilchis RN) 0741 (Given - Provider: Yamil Bender RN)1113 (Given - Provider: Yamil Bender RN) 0754 (Given - Provider: Yamil Bender RN)1152 (Given - Provider: Yamil Bender RN) Continuous Medication Order 10/30/2024 10/31/2024 11/01/2024 Cangrelor (Kengreal) 50 mg in NSS 250 mL INFUSION Final Conc = 200 mcg/mL (CANCELED) Intravenous, 4 mcg/kg/min 93.1 kg (111.72 mL/hr), Start infusion immediately after administration of the bolus. Continue infusion for at least 2 hours or for the duration of the PCI, whichever is longer., CONTINUOUS, Starting on Mon10/31/24 at 1430, Until Mon10/31/24 at 1646, Intra-Op 1414 (New Bag - Provider: Senia Weinberg, RN)1558 (Finish Infusion - Provider: Holly Tuttle, CHAMP) hEParin 25,000 units in 250 mL (Xa-Cardiac) infusion (CANCELED) Intravenous, at 0-23.67 mL/hr, Start heparin as soon as baseline labs are drawn. Please select this medication from the infusion pump library! Concentration: 100 units/mL Expires 96 hours after spiking on (date) at (hour) , TITRATE, Starting on Mon10/30/24 at 0130, Until Dorinda 10/31/24 at 1647 0128 (New Bag - Provider: Patricia Trinidad RN)0355 (Rate Verify - Provider: Patricia Trinidad RN)0708 (Nurse Change - Provider: Patricia Trinidad RN)0853 (Rate Change - Provider: Christine Vilchis RN)1623 (Stopped - Provider: Christine Vilchis RN - Comment: Holding for 30 minutes)1659 (Rate Change - Provider: Christine Vilchis RN)1920 (Nurse Change - Provider: Christine Vilchis RN)2010 (Rate Verify - Provider: Patricia Trinidad RN)2345 (Rate Verify - Provider: Patircia Trinidad RN)2355 (New Bag - Provider: Patricia Trinidad RN) 0023 (Rate Verify - Provider: Patricia Trinidad RN)0407 (Rate Verify - Provider: Patricia Trinidad RN)0707 (Rate Verify - Provider: Patricia Trinidad RN - Comment: Nurse Change)1225 (Stopped - Provider: Senia Weinberg RN)1227 (Stopped - Provider: Yamil Bender RN - Comment: By cath tech for cardiac cath) PRN Medication Order 10/30/2024 10/31/2024 11/01/2024 Acetaminophen (Tylenol) tab 975 mg 975 mg, Oral, Q6H PRN Pain, Mild, Pain, Moderate, Starting on Dorinda 10/31/24 at 1559, Until Mon11/01/24 at 1815, Maximum of 4 grams (4000 mg) per day. 1605 (Given - Provider: Holly Tuttle RN) albuterol (VENTOLIN HFA/PROVENTIL HFA) inhaler 2 Puff, Inhalation, Q4H PRN Dyspnea, Starting on Mon10/29/24 at 2328, Until Mon11/01/24 at 1815, Shake can for 10 seconds before each puff SEND INHALER WITH PATIENT! WASTE INFO ( IF NOT SENT HOME WITH PATIENT) : Return unused medication to pharmacy in zip lock bag for disposal into black container labeled SP. dextrose 50% inj 25 mL 25 mL, IV Push, PRN Hypoglycemia, Other, For blood glucose 54 - 69 mg/dL or 70 - 100 mg/dL with symptoms AND patient is unresponsive, NPO, OR unable to swallow, Starting on Mon10/29/24 at 2336, Until Mon11/01/24 at 1815, Administer IV. Recheck blood glucose after 15 minutes. Notify provider. dextrose 50% inj 50 mL 50 mL, IV Push, PRN Hypoglycemia, Other, For blood glucose below 54 mg/dL AND patient unresponsive, NPO, OR unable to swallow, Starting on Mon10/29/24 at 2336, Until Mon11/01/24 at 1815, Administer IV. Recheck blood glucose in 15 minutes. Notify provider. fentaNYL (PF) inj 25 mcg () 25 mcg, IV Push, PRN Pain, Severe, Starting on Dorinda 10/31/24 at 1230, Until Dorinda 10/31/24 at 1429, For 2 hours, To be administered in Cardiac Delivery Assistant intra-procedure only When given IV Push its recommended that the dose be given over 3 to 5 minutes., Intra-Op 1236 (Given - Provider: Senia Weinberg, CHAMP)1306 (Given - Provider: Senia Weinberg RN) glucagon (Glucagen) inj 1 mg 1 mg, Intramuscular, PRN Hypoglycemia, Other, If patient is unresponsive, or NPO and has no IV access, Starting on Mon10/29/24 at 2336, Until Mon11/01/24 at 1815, NPO and no IV access with either 1) blood glucose less than 100 mg/dL and symptomatic OR 2) blood glucose less than 70 mg/dL and asymptomatic Glucose (Glutose 15) 40 % gel 15 g of glucose 15 g of glucose, Oral, PRN Hypoglycemia (low sugar), Other, For blood glucose 54 - 69 mg/dL or 70 - 100 mg/dL with symptoms AND patient alert WITH difficulty chewing/swallowing, Starting on Mon10/29/24 at 2336, Until Mon11/01/24 at 1815, Administer gel. Recheck blood glucose after 15 minutes. Notify provider. 37.5 gram tube = 15 grams glucose = 1 each Glucose (Glutose 15) 40 % gel 30 g of glucose 30 g of glucose, Oral, PRN Hypoglycemia (low sugar), Other, For blood glucose below 54 mg/dL AND patient alert WITH difficulty chewing/swallowing, Starting on Mon10/29/24 at 2336, Until Mon11/01/24 at 1815, Administer gel. Recheck blood glucose after 15 minutes. Notify provider. 37.5 gram tube = 15 grams glucose = 1 each glucose chew tab 16 g 16 g, Oral, PRN Hypoglycemia, Other, For blood glucose 54 - 69 mg/dL or 70 - 100 mg/dL with symptoms and patient alert without difficulty chewing/swallowing., Starting on Mon10/29/24 at 2336, Until Mon11/01/24 at 1815 hEParin 1000 UNIT/ML inj 2,400 Units (CANCELED) 2,400 Units (rounded from 2,367 Units = 30 Units/kg 78.9 kg Adjusted weight), IV Push, PRN Other, If most recent Heparin Assay result is less than or equal to 0.2 units/mL, Starting on Mon10/29/24 at 2323, Until Mon10/31/24 at 1647, Repeat Heparin Assay 6 hours after bolus is administered. 0853 (Given - Provider: Christine Vilchis RN) hEParin inj 5,000 Units () 5,000 Units, IV Push, PRN Other, Anticoagulation not at goal, Starting on Mon10/31/24 at 1230, Until Mon10/31/24 at 1429, For 2 hours, To be administered in Cardiac Delivery Assistant intra-procedure., Intra-Op 1247 (Given - Provider: Senia Weinberg RN - Comment: per dr ellis at bedside) midazolam (Versed) 2 MG/2ML inj 1 mg () 1 mg, IV Push, PRN Anxiety, Starting on Dorinda 10/31/24 at 1230, Until Dorinda 10/31/24 at 1429, For 2 hours, To be administered in Cardiac Delivery Assistant intra-procedure only, Intra-Op 1236 (Given - Provider: Senia Weinberg, RN)1306 (Given - Provider: Senia Weinberg RN - Comment: per dr ellis at bedside) documented in this encounter Advance Directives * [...] the patient have Health Care Power of Delivery Man? Yes, not currently available Healthcare Agents on File Name Relationship Healthcare Agent Relationshi p Communication Cheli Hospers Adult Child Health Care Repr esentative (appointed verbally by patient or by statute hierarchy) Care Teams Software Applications Architect Relationship Specialty Start Date End Date Kumar Anders DO [address], [place] [id number] PCP - General 12/14/07 documented as of this encounter
--- OUTSIDE RECORDS SUMMARY | 2024-11-09 15:28 | External Medical Summary ---
Author Name Unknown Address Unknown Organization : Laboratory Report Ordering Provider Test Date Status STACY BUSTILLOS 10/31/2024 14:16:30 Final NORMAL (NON-HEPARINIZED) 74- 137 SECONDS
HEPARINIZED 200+ SECONDS
CRITICAL GREATER THAN 1000 SECONDS
null Observation Date Value Abnormality Reference (Units ) Status Kaolin activated time [Units/volume] in Blood 10/31/2024 14:16:30 273 50-1000 (secs) Final Performing Location
--- OUTSIDE RECORDS SUMMARY | 2024-11-09 15:28 | External Medical Summary ---
Author Name Unknown Address Unknown Organization [id number]:LAB[facility]ATORY [facility] [place] - [address] [place] [id number] Laboratory Report Ordering Provider Test Date Status LAMAR WOODRUFF 11/01/2024 04:17:00 Final Warfarin Therapy
INR: 2 .0-3.0 conventional anticoagulation
INR: 2.5- 3.5 high intensity anticoagulation Observation Date Value Abnormality Reference (Units ) Status PT 11/01/2024 04:17:00 13.7 11.6-15.2 (seconds) Final INR 11/01/2024 04:17:00 1.0 0.8-1.2 Final Performing Location LAB[facility]ATORY [facility] [place] - [address] [place] [id number]
--- OUTSIDE RECORDS SUMMARY | 2024-11-09 15:28 | External Medical Summary ---
Author Name Unknown Address Unknown Organization : Laboratory Report Ordering Provider Test Date Status STACY BUSTILLOS 10/31/2024 13:18:54 Final NORMAL (NON-HEPARINIZED) 74- 137 SECONDS
HEPARINIZED 200+ SECONDS
CRITICAL GREATER THAN 1000 SECONDS
null Observation Date Value Abnormality Reference (Units ) Status Kaolin activated time [Units/volume] in Blood 10/31/2024 13:18:54 302 50-1000 (secs) Final Performing Location
--- OUTSIDE RECORDS SUMMARY | 2024-11-09 15:28 | External Medical Summary | Summary of Care ---
Author Name Unknown Organization [facility] Address [address] [place] [address] Phone [phone] Care Team Providers Care Workday Manager Name Role Phone Anders, Kumar Saha DO Primary Care Provider [phone] Encounter Details Date Type Department Care Team (Latest Contact Info) Description 10/29/2024 9:30 AM EST - 10/29/2024 9:40 PM EST Hospital Encounter Radiology Film File [address] [place] [address] Arrived Discharge Disposition: Home - Self Care Allergies Active Allergy Reactions Criticality Noted Date Comments Penicillins Hives 06/19/2009 Pentobarbital Sodium 04/10/2014 documented as of this encounter (statuses as of 11/01/2024) Medications Brilinta 90 MG Oral Tablet (Ticagrelor) Take 1 Tablet by mouth in the morning and 1 Tablet before bedtime. Do not start before November 01, 2024. 60 Tablet 11 9:44 AM EST 11/01/20 24 Active ASPIRIN 81 MG PO TABS Suspended ATORVASTATIN CALCIUM 40 MG PO TABS one daily 024 Discontinued Hydrocodone-Sha taminophen 10-325 MG per tablet Take [...] 12/01/19 17 Suspended Respiratory Therapy Supplies KIT [employer] resmed airfit mask w/head gear, supply tubing, [...] Suspended Dexilant 60 MG Oral Capsule Delayed ReleaseIndicati ons:HTN, goal below 140/90 Take 1 Capsule by mouth in the morning. 30 Capsule 5 03/29/20 23 Suspended Additional Information Patient not [...] mouth every 6 hours as needed. Suspended Fluticasone-Ume clidin-Vilant 100-62.5-25 MCG/ACT Aerosol Powder Breath Activated (Trelegy Ellipta)Indicat ions:COPD, severe (HCC) Inhale 1 Puff by mouth in the morning. 1 Each 08/22/20 23 Suspended Torsemide 20 MG Oral [...] by mouth in the morning. 024 Discontinued Citalopram Hydrobromide 10 MG Oral Tablet (CeleXA) [...] - LEXY o Class D - Inhaled Iyjkcpilvbywnz-FPLY-EELQ Combination Inhaler (Trellegy) Self-Management plan o High [...] Entry Date Author No 08/07/2019 11:59 PM Jose Montalvo RN documented in this encounter Plan of Treatment Upcoming Encounters Date Type Department Care Team (Late st Contact Info) Description 11/03/2024 1:00 PM EST [facility] [address] [place] [address] [facility], Nurse [facility] [address] [place] [address] 12/03/2024 1:00 PM EST [facility] Visit [facility] [address] [place] [address] Mateo Irving PA-C [address] [place] [address] 06/26/2025 8:15 AM EDT Office Visit Ophthalmology, [place] [address] [place] [address] David Wang MD [address] [place] [address] Health Maintenance Due Date Last Done Comments [...] this encounter Medical Devices Implanted Type Area Wall Mirror Department Supervisor Device Identifier Shelf Expiration Date Model / Serial / Lot Stent [place] 3.50x34 [place] [employer] - [id number] Implanted:Qty: 1 on 10/31/2024 by Juan Manuel Ellis [place] [facility] [employer] [place]ASCULAR [id number] 05/04/2027 [id number] / / [id number] documented as of this encounter Procedures Procedure Name Priority Date/Time Associated Diagnosis Comments RADIOLOGY EXAM - IR (IMAGES ONLY, NO REPORT) Routine 10/29/2024 9:30 AM EST documented in this encounter Results * RADIOLOGY EXAM - IR (IMAGES ONLY, NO REPORT) (10/29/2024 9:30 AM EST) 10/29/2024 9:30 AM EST Narrative Scheduling, Silent - 10/31/2024 8:12 AM EST This is an imaging study not interpreted or resulted by a [facility] or [facility] contracted radiologist. Karla Cevallos DO RAD SPECIAL PRO CEDURES Final Result documented in this encounter Advance Directives * [...] the patient have Health Care Power of Deputy Chief Sheriff? Yes, not currently available Healthcare Agents on File Name Relationship Healthcare Agent Relationshi p Communication Cheli Stewart Adult Child Health Care Repr esentative (appointed verbally by patient or by statute hierarchy) Care Teams Workday Manager Relationship Specialty Start Date End Date Kumar Anders DO [address] [place] [address] PCP - General 12/14/07 documented as of this encounter
--- OUTSIDE RECORDS SUMMARY | 2024-11-09 15:28 | External Medical Summary ---
Author Name Unknown Address Unknown Organization : Laboratory Report Ordering Provider Test Date Status ANGIE ROBLES 10/31/2024 23:54:11 Final Observation Date Value Abnormality Reference (Units ) Status Glucose Point of Care 10/31/2024 23:54:11 152 Above high normal 70-120 (mg/dL) Final Performing Location
--- OUTSIDE RECORDS SUMMARY | 2024-11-09 15:28 | External Medical Summary | Summary of Care ---
Author Name Unknown Organization [facility] Address [address] [place] [address] Phone [phone] Care Team Providers Care Machine Ii Trimmer Name Role Phone AndersKaleb garciaomega Saha DO Primary Care Provider [phone] Encounter Details Date Type Department Care Team (Late st Contact Info) Description 10/31/2024 Documentation [facility], [place] [address] [place] [address] Sarah Beth Lan RN [address] [facility] [place] [address] Allergies Active Allergy Reactions Criticality Noted Date [...] 12/01/19 17 Suspended Respiratory Therapy Supplies KIT [employer] resmed airfit mask w/head gear, supply tubing, [...] - LEXY o Class D - Inhaled Liskrxyudushzc-MOFF-HZTI Combination Inhaler (Trellegy) Self-Management plan o High [...] on file. [facility]CP [facility] Coronary atherosclerosis of [place] coronary [place] ry 08/28/2011 BMI 35-39 ISOLATED [...] * Sarah Beth Lan RN - 10/31/2024 9:23 AM EST Adam Hayes was referred as a potential candidate for enrollment for [facility]. A review of this chart was completed and: Adam meets criteria for [facility]. Jump to Initiation Referring care team was notified via : [facility] communication documented in this encounter Plan of Treatment Upcoming Encounters Date Type Department Care Team (Late st Contact Info) Description 06/26/2025 8:15 AM EDT [place] [address] David Wang MD [address] [place] [address] Scheduled Procedures Name Priority Associated Diagnoses Date/Ti [...] 08/06/2020, Additional history exists HbA1c 04/30/2025 10/30/2024, 090 01/2019, 12/10/2018, Additional history exists Diabetic Eye [...] the patient have Health Care Power of Electric Power Superintendent? Yes, not currently available Healthcare Agents on File Name Relationship Healthcare Agent Relationshi p Communication [facility] Repr esentative (appointed verbally by patient or by statute hierarchy) Care Teams Machine Ii Trimmer Relationship Specialty Start Date End Date Kumar Anders DO [address] [place] [address] PCP - General 12/14/07 documented as of this encounter
--- OUTSIDE RECORDS SUMMARY | 2024-11-09 15:28 | External Medical Summary | Summary of Care ---
Author Name Unknown Organization [facility] Address [address] [place] [address] Phone [phone] Care Team Providers Care Microphone Boom Operator Name Role Phone Anders, Kumar Saha DO Primary Care Provider [phone] Encounter Details Date Type Department Care Team (Late st Contact Info) Description 10/29/2024 CardioDiagnostic Study General Internal Medicine, [facility] [address] [place], [place] [id number] Krystal Joshi DO [address] [place], [place] [phone] EKG Report Allergies Active Allergy Reactions Criticality Noted Date Comments Penicillins Hives 06/19/2009 Pentobarbital Sodium 04/10/2014 documented as of this encounter (statuses as of 11/01/2024) Medications Brilinta 90 MG Oral Tablet (Ticagrelor) Take 1 Tablet by mouth in the morning and 1 Tablet before bedtime. Do not start before November 01, 2024. 60 Tablet 11 11/01/20 24 Active Atorvastatin Calcium 80 MG Oral Tablet (Lipitor) Take 1 Tablet by mouth every morning. 30 Tablet 3 11/01/20 24 025 Active Carvedilol 6.25 MG Oral Tablet (Coreg) Take 1 Tablet by mouth two times per day (morning & before bedtime). 68 Tablet 11 11/01/20 24 Active ASPIRIN 81 [...] 12/01/19 17 Suspended Respiratory Therapy Supplies KIT Med resmed airfit [...] - LEXY o Class D - Inhaled Tfpibsxedpzvug-WLGE-STKN Combination Inhaler (Trellegy) Self-Management plan o High [...] on file. [facility]CP [facility] Coronary atherosclerosis of [place] coronary [place] ry 08/28/2011 BMI 35-39 ISOLATED [...] Jose Montalvo RN documented in this encounter Procedure Notes * Lee Villegas DO - 10/29/2024 10:00 PM ESTAssociated Order(s): EKG REPORT REASON FOR STUDY: admit CONCLUSIONS: Normal sinus rhythm Right bundle branch block Left anterior fascicular block Bifascicular block Cannot rule out Anteroseptal infarct Ventricular Rate: 96 Atrial Rate: 96 AR Interval: 200 QRS Duration: 140 QT/QTc: 382/482 ms P-R-T Gans: 51 : -75 : 46 degrees documented in this encounter Plan of Treatment Upcoming Encounters Date Type Department Care Team (Late st Contact Info) Description 06/26/2025 8:15 AM EDT Office Visit Ophthalmology, [place] [address] David Wang [place] [address] Health Maintenance Due Date Last Done Comments Diabetic Foot Exam 1963 Hepatitis C Screening 1963 Zoster Vaccines (1 of 2) 1997 Pneumococcal Vaccine: 50+ Years (2 of 2 - PCV) 08/05/2014 08/05/2013 *ADVANCE DIRECTIVE NOT ON FILE 03/19/2015 Albumin/Creatinine Ratio 01/13/2016 01/12/2015 DISCUSS TOBACCO CESSATION (REFER TO SMARTSET #0015) 05/24/2024 05/24/2023, 04/22/2022, 09/24/2018, Additional history exists COVID-19 Vaccine ( season) 2024 10/19/2021, 02/23/2021, 02/05/2021 Influenza Vaccine (FLU shot) (#1) 2024 07/08/2022, 07/22/2021, 08/06/2020, Additional history exists HbA1c 04/30/2025 10/30/2024, 0901/2019, 12/10/2018, Additional history [...] this encounter Medical Devices Implanted Type Area Gasoline Engine Inspector Device Identifier Shelf Expiration Date Model / Serial / Lot Stent [place] 3.50x34 [place] [employer] - [id number] Implanted:Qty: 1 on 10/31/2024 by Juan Manuel Ellis MD at [facility] [place] [employer] : VASCULAR [id number] 05/04/2027 [id number] / / [id number] documented as of this encounter Procedures Procedure Name Priority Date/Time Associated Diagnosis Comments EKG REPORT 10/29/2024 10:00 PM EST documented in this encounter Results * EKG REPORT (10/29/2024 10:00 PM EST) 10/29/2024 10:0 0 PM EST Narrative Procedure Note Lee Villegas DO - 10/29/2024 10:00 PM EST REASON FOR STUDY: admit CONCLUSIONS: Normal sinus rhythm Right bundle branch block Left anterior fascicular block Bifascicular block Cannot rule out Anteroseptal infarct Ventricular Rate: 96 Atrial Rate: 96 AR Interval: 200 QRS Duration: 140 QT/QTc: 382/482 ms P-R-T Gans: 51 : -75 : 46 degrees Krystal Joshi DO EKG Final Result documented in this encounter Advance [...] the patient have Health Care Power of Informal Waiter/Waitress? Yes, not currently available Healthcare Agents on File Name Relationship Healthcare Agent Relationshi p Communication [facility] Repr esentative (appointed verbally by patient or by statute hierarchy) Care Teams Microphone Boom Operator Relationship Specialty Start Date End Date Kumar Anders DO [address] [place] [address] PCP - General 12/14/07 documented as of this encounter
--- OUTSIDE RECORDS SUMMARY | 2024-11-09 15:28 | External Medical Summary ---
Author Name Unknown Address Unknown Organization [id number]:[facility] [address] [place] [address] Laboratory Report Ordering Provider Test Date Status SHAWANDA PENN 11/01/2024 04:17:00 Final Observation Date Value Abnormality Reference (Units ) Status Phosphate 11/01/2024 04:17:00 3.9 2.5-4.8 (m g/dL) Final Performing Location [facility] - [address] [place] [address]
--- OUTSIDE RECORDS SUMMARY | 2024-11-09 15:28 | External Medical Summary | Summary of Care ---
Author Name Unknown Organization [facility] Address [address] [place] [address] Phone [phone] Care Team Providers Care Powder And Primer Canning Leader Name Role Phone Kumar Anders DO Primary Care Provider [phone] Reason for Visit * Auth/Cert Specialty Diagnoses / Procedures Referred By Kylee campo Referred To Contact Diagnoses NSTEMI/Post cardica cath Yifan Sullivan DO [address] [place] [address] Phone: tel: fax: Admissions, [facility] [place] [address] [place] [address] Referral ID Status Reason Start Date Expiration Date Visits Re quested Visits Authorized [id number] Encounter Details Date Type Department Care Team (Latest Contact Info) Description 10/31/2024 11:20 AM EST - 10/31/2024 11:59 PM EST Hospital Encounter Cardiac Studies [facility] [address] [place] [address] Discharge Disposition: Home - Self Care Allergies [...] 12/01/19 17 Suspended Respiratory Therapy Supplies KIT [employer] resmed airfit mask w/head gear, supply tubing, [...] - LEXY o Class D - Inhaled Digmfutbzzuxgq-LMDJ-RMHA Combination Inhaler (Trellegy) Self-Management plan o High [...] on file. [facility] Coronary atherosclerosis of [place] coronary [place] ry 08/28/2011 BMI 35-39 ISOLATED [...] 1:00 PM EST [facility] [address] [place] [address] [facility], Nurse [facility] [address] [place] [address] 12/03/2024 1:00 PM EST [facility] [address] [place] [address] Mateo Irving PA-C [address] [place] [address] 06/26/2025 8:15 AM EDT Office Visit Alex [place] [address] [place] [address] David Wang MD [address] [place] [address] Health Maintenance Due Date Last Done Comments [...] this encounter Medical Devices Implanted Type Area Manager Social Services Device Identifier Shelf Expiration Date Model / Serial / Lot Stent [place] 3.50x34 [place] [employer] - [id number] Implanted:Qty: 1 on 10/31/2024 by Juan Manuel Ellis MD at [facility] [place] [employer] : VASCULAR [id number] 05/04/2027 [id number] / / [id number] documented as of this encounter Procedures Procedure Name Priority Date/Time Associated Diagnosis Comments ECHO, TTE, LIMITED Routine 10/31/2024 3:53 PM EST NSTEMI (non-ST elevated myocardial infarction) ([facility]) documented in this encounter Visit Diagnoses Diagnosis Lump on neck- Primary Swelling, mass, or lump in head and neck Type 2 diabetes mellitus with diabetic peripheral angiopathy without gangrene, without long-term current use of insulin (HCC) Chronic respiratory failure with hypoxia (HCC) Chronic respiratory failure Dyslipidemia, goal to be determined Other and unspecified hyperlipidemia HTN, goal below 140/90 Unspecified essential hypertension Aortic atherosclerosis (HCC) Atherosclerosis of aorta Advanced care planning/counseling discussion Other specified counseling COPD, group D, by GOLD 2017 classification ([facility]) SANJAY (obstructive sleep apnea) Obstructive sleep apnea (adult) (pediatric) Marijuana smoker Cannabis abuse, unspecified Chronic bilateral low back pain without sciatica NSTEMI (non-ST elevated myocardial infarction) (HCC)- Primary Acute myocardial infarction, subendocardial infarction, episode of care unspecified Aortic atherosclerosis (HCC) Atherosclerosis of aorta COPD, group D, by GOLD 2017 classification ([facility]) RBBB (right bundle branch block) Right bundle branch block Atherosclerosis of [place] coronary artery, unspecified whether angina present, unspecified whether [place] or transplanted heart HTN, goal below 140/90 Unspecified essential hypertension documented in this encounter Administered Medications Inactive Administered Medications - up to 3 most recent administrations Medication Order MAR Action Action Date Dose Rate Site perflutren lipid microsphere inj SUSP 1.956 mg 1.956 mg, Intravenous, ONCE PRN Other, For Echo Only - Suboptimal Echo Images, Starting on Dorinda 10/31/24 at 1530, Until Dorinda 10/31/24 at 1729, For 2 hours, Administer IVP over 45 seconds, Cardiac Studies_HODHOVIndications:NSTEMI (non-ST elevated myocardial infarction) (HCC),Aortic atherosclerosis (HCC),RBBB (right bundle branch block),Atherosclerosis of [place] coronary artery, unspecified whether angina present, unspecified whether [place] or transplanted heart,HTN, goal below 140/90 Given 10/31/2024 3:31 PM EST 1.956 mg documented in this encounter Advance Directives * [...] the patient have Health Care Power of Insurance Case Manager? Yes, not currently available Healthcare Agents on File Name Relationship Healthcare Agent Relationshi p Communication [facility] Adult Child Health Care Repr esentative (appointed verbally by patient or by statute hierarchy) Care Teams Powder And Primer Canning Leader Relationship Specialty Start Date End Date Kumar Anders DO [address] [place] [address] PCP - General 12/14/07 documented as of this encounter
--- OUTSIDE RECORDS SUMMARY | 2024-11-09 15:28 | External Medical Summary ---
Author Name Unknown Address Unknown Organization : Laboratory Report Ordering Provider Test Date Status ANGIE ROBLES 11/01/2024 11:30:34 Final Observation Date Value Abnormality Reference (Units ) Status Glucose Point of Care 11/01/2024 11:30:34 159 Above high normal 70-120 (mg/dL) Final Performing Location
--- OUTSIDE RECORDS SUMMARY | 2024-11-09 15:28 | External Medical Summary ---
Author Name Unknown Address Unknown Organization K01:LAB[facility]ATORY [place] [address] [facility] [address] Laboratory Report Ordering Provider Test Date Status SHAWANDA PENN 10/31/2024 17:33:00 Final Observation Date Value Abnormality Reference (Units ) Status WBC, Total 10/31/2024 17:33:00 8.96 4.00-10.80 (K/uL) Final RBC 10/31/2024 17:33:00 4.41 4.50-5.25 (M/uL) Final Hemoglobin 10/31/2024 17:33:00 12.6 Below low normal 14.0-16.8 (g/dL) Final HCT 10/31/2024 17:33:00 40.2 40.0-48.4 (%) Final MCV 10/31/2024 17:33:00 91.2 82.0-99.5 (fL) Final MCH 10/31/2024 17:33:00 28.6 27.0-34.0 (pg) Final MCHC 10/31/2024 17:33:00 31.3 32.0-36.0 (g/dL) Final RDW 10/31/2024 17:33:00 13.0 11.5-15.5 (%) Final Platelets 10/31/2024 17:33:00 159 140-400 (K/uL) Final MPV 10/31/2024 17:33:00 10.6 6.6-11.1 (fL) Final Nucleated erythrocytes/100 leukocytes [Ratio] in Blood by Automated count 10/31/2024 17:33:00 0 <=0 (/100 WBCs) Final Performing Location LAB[facility]ORY [facility] - [address] [facility] [address]
--- OUTSIDE RECORDS SUMMARY | 2024-11-09 15:28 | External Medical Summary ---
Author Name Unknown Address Unknown Organization K01:[facility] [place] - [address] [facility] [address] Laboratory Report Ordering Provider Test Date Status SHAWANDA PENN 11/01/2024 04:17:00 Final Observation Date Value Abnormality Reference (Units ) Status BUN 11/01/2024 04:17:00 14 6-20 (mg/dL) Final Creatinine 11/01/2024 04:17:00 0.7 0.6-1.2 (mg/dL) Final Glomerular filtration rate/1.73 sq M.predicted [Volume Rate/Area] in Serum, Plasma or Blood by Creatinine-based formula (CKD-EPI) 11/01/2024 04:17:00 >90 >=60 (mL/min) Final eGFR is calculated based on the CKD-EPI 2020 equation. Sodium 11/01/2024 04:17:00 139 135-146 (m mol/L) Final Potassium 11/01/2024 04:17:00 3.7 3.5-5.1 (m mol/L) Final Cl 11/01/2024 04:17:00 100 98-107 (mm ol/L) Final CO2 11/01/2024 04:17:00 27 22-32 (mmo l/L) Final Anion gap 11/01/2024 04:17:00 12 7-15 (mmol /L) Final Glucose 11/01/2024 04:17:00 120 70-120 (mg /dL) Final Calcium 11/01/2024 04:17:00 9.1 8.4-10.2 ( mg/dL) Final Performing Location [facility] [place] - [address] [facility] [address]
--- OUTSIDE RECORDS SUMMARY | 2024-11-09 15:28 | External Medical Summary | Summary of Care ---
Author Name Unknown Organization [facility] Address [address] [place] [address] Phone [phone] Care Team Providers Care Customer Service Attendant Name Role Phone AndersKaleb garcian Yifan Primary Care Provider [phone] Encounter Details Date Type Department Care Team (Late st Contact Info) Description 10/29/2024 Orders Only [facility], [address] [id number] Karla Cevallos, DO [address] [place], [place] [phone] Allergies Active Allergy Reactions Criticality Noted Date Comments Penicillins Hives 06/19/2009 Pentobarbital Sodium 04/10/2014 documented as of this encounter (statuses as of 10/31/2024) Medications ASPIRIN 81 MG PO TABS Suspended ATORVASTATIN [...] in the morning. 30 Tablet 5 03/29/20 Suspended Ciprofloxacin HCl 0.3 % Ophthalmic Solution [...] BEDTIME. 30 mL 5 04/30/20 24 Suspended Hantec MarketsTouch Ultra In Vitro Strip TEST SUGAR TWICE [...] - LEXY o Class D - Inhaled Xvofrgdrgedkwc-GKMO-RVOC Combination Inhaler (Trellegy) Self-Management plan o High [...] on file. [facility]CP [facility] Coronary atherosclerosis of [place] coronary [place] ry 08/28/2011 BMI 35-39 ISOLATED [...] No 07/12/2024 Does the household have a [facility] source of income? (Household - for ages [...] 06/26/2025 8:15 AM EDT Office Visit Ophthalmology, [place] [address] David Wang MD [address] [address] Scheduled Procedures Name Priority Associated Diagnoses Date/Ti [...] Not on filedocumented as of this encounter Procedures Procedure Name [...] interpreted or resulted by a [facility] or [facility] contracted radiologist. Karla Allen McPhedran DO RAD SPECIAL PRO CEDURES Final Result [...] the patient have Health Care Power of Silviculture Teacher? Yes, not currently available Healthcare Agents on File Name Relationship Healthcare Agent Relationshi p Communication [facility] [place] Adult Child Health Care Repr esentative (appointed verbally by patient or by statute hierarchy) Care Teams Customer Service Attendant Relationship Specialty Start Date End Date Kumar Anders DO [address] [place] [address] PCP - General 12/14/07 documented as of this encounter
--- OUTSIDE RECORDS SUMMARY | 2024-11-09 15:28 | External Medical Summary ---
Author Name Unknown Address Unknown Organization K01:[facility] - [address] [address] Laboratory Report Ordering Provider Test Date Status SHAWANDA PENN 11/01/2024 04:17:00 Final Observation Date Value Abnormality Reference (Units ) Status Magnesium 11/01/2024 04:17:00 2.1 1.5-2.6 (m g/dL) Final Performing Location [facility] - [address] [place] [address]
--- OUTSIDE RECORDS SUMMARY | 2024-11-09 15:29 | External Medical Summary ---
Author Name Unknown Address Unknown Organization K01:[facility] [place] [address] [facility] [address] Laboratory Report Ordering Provider Test Date Status MARTI DINH 10/29/2024 23:04:00 Final Observation Date Value Abnormality Reference (Units ) Status BUN 10/29/2024 23:04:00 17 6-20 (mg/dL) Final Creatinine 10/29/2024 23:04:00 1.0 0.6-1.2 (mg/dL) Final Glomerular filtration rate/1.73 sq M.predicted [Volume Rate/Area] in Serum, Plasma or Blood by Creatinine-based formula (CKD-EPI) 10/29/2024 23:04:00 75 >=60 (mL/min) Final eGFR is calculated based on the CKD-EPI 2020 equation. Sodium 10/29/2024 23:04:00 139 135-146 (m mol/L) Final Potassium 10/29/2024 23:04:00 3.5 3.5-5.1 (m mol/L) Final Cl 10/29/2024 23:04:00 98 98-107 (mm ol/L) Final CO2 10/29/2024 23:04:00 27 22-32 (mmo l/L) Final Anion gap 10/29/2024 23:04:00 14 7-15 (mmol /L) Final Glucose 10/29/2024 23:04:00 127 Above high normal 70 -120 (mg/dL) Final Calcium 10/29/2024 23:04:00 8.6 8.4-10.2 ( mg/dL) Final Performing Location [facility] [place] [place] [address] [place] [address]
--- OUTSIDE RECORDS SUMMARY | 2024-11-09 15:29 | External Medical Summary ---
Author Name Unknown Address Unknown Organization K01:[facility] [place] [address] [address] Laboratory Report Ordering Provider Test Date Status LAMAR WOODRUFF 10/31/2024 04:44:00 Final Warfarin Therapy
INR: 2 .0-3.0 conventional anticoagulation
INR: 2.5- 3.5 high intensity anticoagulation Observation Date Value Abnormality Reference (Units ) Status PT 10/31/2024 04:44:00 13.9 11.6-15.2 (seconds) Final INR 10/31/2024 04:44:00 1.1 0.8-1.2 Final Performing Location [facility] [place] [address] [address]
--- OUTSIDE RECORDS SUMMARY | 2024-11-09 15:29 | External Medical Summary ---
Author Name Unknown Address Unknown Organization : Laboratory Report Ordering Provider Test Date Status STACY BUSTILLOS 10/30/2024 23:42:54 Final Observation Date Value Abnormality Reference (Units ) Status Glucose Point of Care 10/30/2024 23:42:54 136 Above high normal 70-120 (mg/dL) Final Performing Location
--- OUTSIDE RECORDS SUMMARY | 2024-11-09 15:29 | External Medical Summary ---
Author Name Unknown Address Unknown Organization K01:[facility] [place] [address] [address] Laboratory Report Ordering Provider Test Date Status STACY BUSTILLOS 10/30/2024 07:21:00 Final Observation Date Value Abnormality Reference (Units ) Status Heparin, unfractionated level 10/30/2024 07:21:00 0.20 Above high normal <0.10 (IU/mL) Final Unfractionated therapeutic r anges for Anti Xa activity:
For Cardiac/Neurologic treatment: 0.3 to 0.6 IU/mL.
For treatment of DVT or Pulmonary Embolism: 0.3 to 0.7 IU/mL. Performing Location [facility] [place] [address] [place] [address]
--- OUTSIDE RECORDS SUMMARY | 2024-11-09 15:29 | External Medical Summary ---
Author Name Unknown Address Unknown Organization : Laboratory Report Ordering Provider Test Date Status STACY BUSTILLOS 10/31/2024 13:06:33 Final NORMAL (NON-HEPARINIZED) 74- 137 SECONDS
HEPARINIZED 200+ SECONDS
CRITICAL GREATER THAN 1000 SECONDS
null Observation Date Value Abnormality Reference (Units ) Status Kaolin activated time [Units/volume] in Blood 10/31/2024 13:06:33 510 50-1000 (secs) Final Performing Location
--- OUTSIDE RECORDS SUMMARY | 2024-11-09 15:29 | External Medical Summary ---
Author Name Unknown Address Unknown Organization [id number]:LAB[facility]ATORY [facility] [place] - [facility] [address] [place] [address] Laboratory Report Ordering Provider Test Date Status SHAWANDA PENN 10/31/2024 04:44:00 Final Observation Date Value Abnormality Reference (Units ) Status BUN 10/31/2024 04:44:00 16 6-20 (mg/dL) Final Creatinine 10/31/2024 04:44:00 0.8 0.6-1.2 (mg/dL) Final Glomerular filtration rate/1.73 sq M.predicted [Volume Rate/Area] in Serum, Plasma or Blood by Creatinine-based formula (CKD-EPI) 10/31/2024 04:44:00 90 >=60 (mL/min) Final eGFR is calculated based on the CKD-EPI 2020 equation. Sodium 10/31/2024 04:44:00 139 135-146 (m mol/L) Final Potassium 10/31/2024 04:44:00 3.4 Below low normal 3.5 -5.1 (mmol/L) Final Cl 10/31/2024 04:44:00 100 98-107 (mm ol/L) Final CO2 10/31/2024 04:44:00 27 22-32 (mmo l/L) Final Anion gap 10/31/2024 04:44:00 12 7-15 (mmol /L) Final Glucose 10/31/2024 04:44:00 122 Above high normal 70 -120 (mg/dL) Final Calcium 10/31/2024 04:44:00 8.8 8.4-10.2 ( mg/dL) Final Performing Location LABORATORY [facility] [place] - [facility] [address]
--- OUTSIDE RECORDS SUMMARY | 2024-11-09 15:29 | External Medical Summary ---
Author Name Unknown Address Unknown Organization K01:LABORATORY [facility] - [address] [address] Laboratory Report Ordering Provider Test Date Status SHAWANDA PENN 10/30/2024 05:31:00 Final Observation Date Value Abnormality Reference (Units ) Status Magnesium 10/30/2024 05:31:00 2.0 1.5-2.6 (m g/dL) Final Performing Location LAB[facility]ATORY [facility] - [address] [place] [address]
--- OUTSIDE RECORDS SUMMARY | 2024-11-09 15:29 | External Medical Summary ---
Author Name Unknown Address Unknown Organization : Laboratory Report Ordering Provider Test Date Status STACY BUSTILLOS 10/30/2024 05:51:34 Final Observation Date Value Abnormality Reference (Units ) Status Glucose Point of Care 10/30/2024 05:51:34 124 Above high normal 70-120 (mg/dL) Final Performing Location
--- OUTSIDE RECORDS SUMMARY | 2024-11-09 15:29 | External Medical Summary ---
Author Name Unknown Address Unknown Organization [id number]:[place] [place] [address] [address] Laboratory Report Ordering Provider Test Date Status LAMAR WOODRUFF 10/30/2024 05:31:00 Final Observation Date Value Abnormality Reference (Units ) Status WBC, Total 10/30/2024 05:31:00 7.13 4.00-10.80 (K/uL) Final RBC 10/30/2024 05:31:00 4.42 4.50-5.25 (M/uL) Final Hemoglobin 10/30/2024 05:31:00 13.1 Below low normal 14.0-16.8 (g/dL) Final HCT 10/30/2024 05:31:00 40.3 40.0-48.4 (%) Final MCV 10/30/2024 05:31:00 91.2 82.0-99.5 (fL) Final MCH 10/30/2024 05:31:00 29.6 27.0-34.0 (pg) Final MCHC 10/30/2024 05:31:00 32.5 32.0-36.0 (g/dL) Final RDW 10/30/2024 05:31:00 12.9 11.5-15.5 (%) Final Platelets 10/30/2024 05:31:00 165 140-400 (K/uL) Final MPV 10/30/2024 05:31:00 10.6 6.6-11.1 (fL) Final Nucleated erythrocytes/100 leukocytes [Ratio] in Blood by Automated count 10/30/2024 05:31:00 0 <=0 (/100 WBCs) Final Performing Location [facility] [place] [address] [place] [address]
--- OUTSIDE RECORDS SUMMARY | 2024-11-09 15:29 | External Medical Summary ---
Author Name Unknown Address Unknown Organization : Laboratory Report Ordering Provider Test Date Status STACY BUSTILLOS 10/30/2024 00:13:15 Final Observation Date Value Abnormality Reference (Units ) Status Glucose Point of Care 10/30/2024 00:13:15 120 70-120 (mg/dL) Final Performing Location
--- OUTSIDE RECORDS SUMMARY | 2024-11-09 15:29 | External Medical Summary ---
Author Name Unknown Address Unknown Organization K01:LABORATORY [facility] [place] - [facility] [address] [facility] [address] Laboratory Report Ordering Provider Test Date Status SHAWANDA PENN 10/30/2024 05:31:00 Final Observation Date Value Abnormality Reference (Units ) Status BUN 10/30/2024 05:31:00 16 6-20 (mg/dL) Final Creatinine 10/30/2024 05:31:00 0.8 0.6-1.2 (mg/dL) Final Glomerular filtration rate/1.73 sq M.predicted [Volume Rate/Area] in Serum, Plasma or Blood by Creatinine-based formula (CKD-EPI) 10/30/2024 05:31:00 90 >=60 (mL/min) Final eGFR is calculated based on the CKD-EPI 2020 equation. Sodium 10/30/2024 05:31:00 139 135-146 (m mol/L) Final Potassium 10/30/2024 05:31:00 3.8 3.5-5.1 (m mol/L) Final Cl 10/30/2024 05:31:00 99 98-107 (mm ol/L) Final CO2 10/30/2024 05:31:00 24 22-32 (mmo l/L) Final Anion gap 10/30/2024 05:31:00 16 Above high normal 7- 15 (mmol/L) Final Glucose 10/30/2024 05:31:00 119 70-120 (mg /dL) Final Calcium 10/30/2024 05:31:00 8.9 8.4-10.2 ( mg/dL) Final Performing Location LABORATORY [facility] [place] - [address] [facility] [address]
--- OUTSIDE RECORDS SUMMARY | 2024-11-09 15:29 | External Medical Summary ---
Author Name Unknown Address Unknown Organization K01:LABORATORY [facility] [place] - [address] [address] Laboratory Report Ordering Provider Test Date Status LAMAR WOODRUFF 10/30/2024 05:31:00 Final Warfarin Therapy
INR: 2 .0-3.0 conventional anticoagulation
INR: 2.5- 3.5 high intensity anticoagulation Observation Date Value Abnormality Reference (Units ) Status PT 10/30/2024 05:31:00 14.1 11.6-15.2 (seconds) Final INR 10/30/2024 05:31:00 1.1 0.8-1.2 Final Performing Location LABORATORY [facility] [place] - [address] [address]
--- OUTSIDE RECORDS SUMMARY | 2024-11-09 15:29 | External Medical Summary ---
Author Name Unknown Address Unknown Organization K01:LABORATORY [facility] - [address] [address] Laboratory Report Ordering Provider Test Date Status LAMAR WOODRUFF 10/30/2024 05:31:00 Final Observation Date Value Abnormality Reference (Units ) Status Triglyceride 10/30/2024 05:31:00 88 <=174 ( mg/dL) Final Triglyceride Reference Range s (mg/dL):
<150 Acceptable
150-174 Borderline high
175-499 High
>=500 Very high Cholesterol 10/30/2024 05:31:00 132 <200 (mg /dL) Final Total Cholesterol Reference Ranges (mg/dL):
<200 Desirable
200-239 Borderline high
>=240 High HDL 10/30/2024 05:31:00 45 >39 (mg/dL ) Final HDL Cholesterol Reference Ra nges (mg/dL):
>=60 High (Desirable)
<50 Low (Undesirable) For Females
<40 Low (Undesirable) For Males NON-HDL CHOLESTEROL 10/30/2024 05:31:00 87 <=159 (mg/dL) Final Non-HDL Cholesterol Referenc e Range (mg/dL):
<100 Target level for high risk ASCVD patient
<130 Optimal for general population
130-159 Near optimal for general population
160-189 Borderline High
190-219 High
>=220 Very High LDL, (calculated) 10/30/2024 05:31:00 69 <= 129 (mg/dL) Final LDL Cholesterol Reference Ra nges (mg/dL):
<70 Target level for high risk ASCVD patient
<100 Optimal for general population
100-129 Near optimal for general population
130-159 Borderline high
160-189 High
>=190 Very high Performing Location LABORATORY [facility] [place] - [address] [facility] [address]
--- OUTSIDE RECORDS SUMMARY | 2024-11-09 15:29 | External Medical Summary ---
Author Name Unknown Address Unknown Organization K01:LAB[facility]ATORY [facility] [place] [address] [place] [address] Laboratory Report Ordering Provider Test Date Status MARTI DINH 10/29/2024 23:04:00 Final Observation Date Value Abnormality Reference (Units ) Status Troponin T 10/29/2024 23:04:00 168 Above upper panic limits <=22 (ng/L) Final Performing Location LABORATORY [facility] [place] - [address] [place] [address]
--- OUTSIDE RECORDS SUMMARY | 2024-11-09 15:29 | External Medical Summary ---
Author Name Unknown Address Unknown Organization K01:LAB[facility]ATORY [facility] [place] - [address] [place] [address] Laboratory Report Ordering Provider Test Date Status APOLLOSTACY 10/30/2024 14:59:00 Final Observation Date Value Abnormality Reference (Units ) Status Heparin, unfractionated level 10/30/2024 14:59:00 0.77 Above high normal <0.10 (IU/mL) Final Unfractionated therapeutic r anges for Anti Xa activity:
For Cardiac/Neurologic treatment: 0.3 to 0.6 IU/mL.
For treatment of DVT or Pulmonary Embolism: 0.3 to 0.7 IU/mL. Performing Location LABORATORY [facility] [place] [facility] [address] [facility] [address]
--- OUTSIDE RECORDS SUMMARY | 2024-11-09 15:29 | External Medical Summary ---
Author Name Unknown Address Unknown Organization K01:[place] [facility] [place] [address] [address] Laboratory Report Ordering Provider Test Date Status LAMAR WOODRUFF 10/29/2024 23:34:00 Final Warfarin Therapy
INR: 2 .0-3.0 conventional anticoagulation
INR: 2.5- 3.5 high intensity anticoagulation Observation Date Value Abnormality Reference (Units ) Status PT 10/29/2024 23:34:00 13.9 11.6-15.2 (seconds) Final INR 10/29/2024 23:34:00 1.1 0.8-1.2 Final Performing Location [place] [facility] [place] [address] [address]
--- OUTSIDE RECORDS SUMMARY | 2024-11-09 15:29 | External Medical Summary ---
Author Name Unknown Address Unknown Organization : Laboratory Report Ordering Provider Test Date Status STACY BUSTILLOS 10/30/2024 11:47:33 Final Observation Date Value Abnormality Reference (Units ) Status Glucose Point of Care 10/30/2024 11:47:33 199 Above high normal 70-120 (mg/dL) Final Performing Location
--- OUTSIDE RECORDS SUMMARY | 2024-11-09 15:29 | External Medical Summary ---
Author Name Unknown Address Unknown Organization K01:LABORATORY [facility] - [address] [address] Laboratory Report Ordering Provider Test Date Status SHAWANDA PENN 10/30/2024 05:31:00 Final Observation Date Value Abnormality Reference (Units ) Status Phosphate 10/30/2024 05:31:00 3.8 2.5-4.8 (m g/dL) Final Performing Location LABORATORY [facility] - [address] [place] [address]
--- OUTSIDE RECORDS SUMMARY | 2024-11-09 15:29 | External Medical Summary ---
Author Name Unknown Address Unknown Organization : Laboratory Report Ordering Provider Test Date Status STACY BUSTILLOS 10/30/2024 16:05:13 Final Observation Date Value Abnormality Reference (Units ) Status Glucose Point of Care 10/30/2024 16:05:13 102 70-120 (mg/dL) Final Performing Location
--- OUTSIDE RECORDS SUMMARY | 2024-11-09 15:29 | External Medical Summary ---
Author Name Unknown Address Unknown Organization : Laboratory Report Ordering Provider Test Date Status STACY BUSTILLOS 10/31/2024 04:55:48 Final Observation Date Value Abnormality Reference (Units ) Status Glucose Point of Care 10/31/2024 04:55:48 115 70-120 (mg/dL) Final Performing Location
--- OUTSIDE RECORDS SUMMARY | 2024-11-09 15:29 | External Medical Summary ---
Author Name Unknown Address Unknown Organization K01:LAB[facility]ORY [facility] [place] [address] [address] Laboratory Report Ordering Provider Test Date Status LAMAR WOODRUFF 10/29/2024 23:34:00 Final Observation Date Value Abnormality Reference (Units ) Status Heparin, unfractionated level 10/29/2024 23:34:00 <0.10 <0.10 (IU/mL) Final Unfractionated therapeutic r anges for Anti Xa activity:
For Cardiac/Neurologic treatment: 0.3 to 0.6 IU/mL.
For treatment of DVT or Pulmonary Embolism: 0.3 to 0.7 IU/mL. Performing Location LABORATORY [facility] [place] - [address] [address]
--- OUTSIDE RECORDS SUMMARY | 2024-11-09 15:29 | External Medical Summary ---
Author Name Unknown Address Unknown Organization K01:LAB[facility] [place] - [address] [place] [address] Laboratory Report Ordering Provider Test Date Status LAMAR WOODRUFF 10/29/2024 23:53:00 Final Observation Date Value Abnormality Reference (Units ) Status Troponin T 10/29/2024 23:53:00 167 Above upper panic limits <=22 (ng/L) Final Performing Location LABORATORY [facility] - [address] [place] [address]
--- OUTSIDE RECORDS SUMMARY | 2024-11-09 15:29 | External Medical Summary ---
Author Name Unknown Address Unknown Organization K01:LAB[facility]ATORY [facility] [place] [address] [place] [address] Laboratory Report Ordering Provider Test Date Status LAMAR WOODRUFF 10/29/2024 23:34:00 Final Anticoagulation may affect t esting. Refer to [employer] Test Catalog for a list of effects. Observation Date Value Abnormality Reference (Units ) Status aPTT panel - Platelet poor plasma 10/29/2024 23:34:00 31 21-38 (seconds) Final Performing Location LAB[facility]ORY [facility] [place] - [address] [place] [address]
--- OUTSIDE RECORDS SUMMARY | 2024-11-09 15:29 | External Medical Summary ---
Author Name Unknown Address Unknown Organization K01:LABORATORY [facility] [place] - [address] [address] Laboratory Report Ordering Provider Test Date Status APOLLOSTACY 10/30/2024 23:10:00 Final Observation Date Value Abnormality Reference (Units ) Status Heparin, unfractionated level 10/30/2024 23:10:00 0.53 Above high normal <0.10 (IU/mL) Final Unfractionated therapeutic r anges for Anti Xa activity:
For Cardiac/Neurologic treatment: 0.3 to 0.6 IU/mL.
For treatment of DVT or Pulmonary Embolism: 0.3 to 0.7 IU/mL. Performing Location LABORATORY [facility] [place] - [address] [place] [address]
--- OUTSIDE RECORDS SUMMARY | 2024-11-09 15:29 | External Medical Summary ---
Author Name Unknown Address Unknown Organization K01:LABORATORY [facility] [place] - [address] [place] [address] Laboratory Report Ordering Provider Test Date Status APOLLOSTACY 10/31/2024 04:44:00 Final Observation Date Value Abnormality Reference (Units ) Status Heparin, unfractionated level 10/31/2024 04:44:00 0.45 Above high normal <0.10 (IU/mL) Final Unfractionated therapeutic r anges for Anti Xa activity:
For Cardiac/Neurologic treatment: 0.3 to 0.6 IU/mL.
For treatment of DVT or Pulmonary Embolism: 0.3 to 0.7 IU/mL. Performing Location LABORATORY [facility] [place] [facility] [address] [facility] [address]
--- OUTSIDE RECORDS SUMMARY | 2024-11-09 15:29 | External Medical Summary ---
Author Name Unknown Address Unknown Organization K01:LABORATORY [facility] [place] - [facility] [address] [facility] [address] Laboratory Report Ordering Provider Test Date Status MARTI DINH 10/29/2024 23:04:00 Final Observation Date Value Abnormality Reference (Units ) Status WBC, Total 10/29/2024 23:04:00 8.75 4.00-10.80 (K/uL) Final RBC 10/29/2024 23:04:00 4.37 4.50-5.25 (M/uL) Final Hemoglobin 10/29/2024 23:04:00 13.0 Below low normal 14.0-16.8 (g/dL) Final HCT 10/29/2024 23:04:00 39.8 Below low normal 40.0-48.4 (%) Final MCV 10/29/2024 23:04:00 91.1 82.0-99.5 (fL) Final MCH 10/29/2024 23:04:00 29.7 27.0-34.0 (pg) Final MCHC 10/29/2024 23:04:00 32.7 32.0-36.0 (g/dL) Final RDW 10/29/2024 23:04:00 12.7 11.5-15.5 (%) Final Platelets 10/29/2024 23:04:00 165 140-400 (K/uL) Final MPV 10/29/2024 23:04:00 10.2 6.6-11.1 (fL) Final Nucleated erythrocytes/100 leukocytes [Ratio] in Blood by Automated count 10/29/2024 23:04:00 0 <=0 (/100 WBCs) Final Performing Location LABORATORY [facility] [place] - [address] [place] [address]
--- OUTSIDE RECORDS SUMMARY | 2024-11-09 15:29 | External Medical Summary ---
Author Name Unknown Address Unknown Organization K01:LABORATORY [facility] [place] - [facility] [address] [facility] [address] [facility] [address] Laboratory Report Ordering Provider Test Date Status LAMAR WOODRUFF 10/31/2024 04:44:00 Final Observation Date Value Abnormality Reference (Units ) Status WBC, Total 10/31/2024 04:44:00 7.34 4.00-10.80 (K/uL) Final RBC 10/31/2024 04:44:00 4.39 4.50-5.25 (M/uL) Final Hemoglobin 10/31/2024 04:44:00 12.7 Below low normal 14.0-16.8 (g/dL) Final HCT 10/31/2024 04:44:00 39.9 Below low normal 40.0-48.4 (%) Final MCV 10/31/2024 04:44:00 90.9 82.0-99.5 (fL) Final MCH 10/31/2024 04:44:00 28.9 27.0-34.0 (pg) Final MCHC 10/31/2024 04:44:00 31.8 32.0-36.0 (g/dL) Final RDW 10/31/2024 04:44:00 12.7 11.5-15.5 (%) Final Platelets 10/31/2024 04:44:00 155 140-400 (K/uL) Final MPV 10/31/2024 04:44:00 10.7 6.6-11.1 (fL) Final Nucleated erythrocytes/100 leukocytes [Ratio] in Blood by Automated count 10/31/2024 04:44:00 0 <=0 (/100 WBCs) Final Performing Location LABORATORY [facility] [place] - [address] [facility] [address]
--- OUTSIDE RECORDS SUMMARY | 2024-11-09 15:29 | External Medical Summary | Summary of Care ---
Author Name Unknown Organization [facility] Address [address] [place] [address] Phone [phone] Care Team Providers Care Casket Assembler Name Role Phone Kumar Anders DO Primary Care Provider [phone] Encounter Details Date Type Department Care Team (Late st Contact Info) Description 10/30/2024 Population Health External Data Unspecified Department Allergies Active Allergy Reactions Criticality Noted Date Comments Penicillins Hives 06/19/2009 Pentobarbital Sodium 04/10/2014 documented as of this encounter (statuses as of 10/30/2024) Medications ASPIRIN 81 MG PO TABS Suspended [...] the morning. 30 Tablet 5 03/29/20 23 Suspended Ciprofloxacin HCl 0.3 % [...] as of this encounter (statuses as of 10/30/2024) Active Problems Problem Noted Date Diagnosed Date NSTEMI (non-ST elevated myocardial infarction) 1 12/30/2023 [...] - LEXY o Class D - Inhaled Msyrxgyayfknzb-VLOW-CGSN Combination Inhaler (Edllegy) Self-Management plan o High [...] on file. 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 07/21/2022 Overview: Per COPD GOLD Classification Respiratory failure 03/16/2015 04/18/20 23 Hypoxemia 04/18/2023 documented as of this encounter (statuses as of 10/30/2024) Immunizations Name Administration Dates Next Due COVID-19 [...] 06/26/2025 8:15 AM EDT Office Visit Ophthalmology, [place] [address] [address] David Wang MD [address] [address] Health Maintenance Due Date Last Done Comments [...] history exists Depression Screening 07/12/2025 07/12/2024 GFR 10/29/2025 10/29/2024, 01/2023, 08/11/2023, Additional history exists O2 ASSESSMENT COMPLETED IN PAST YEAR FOR COPD 10/30/2025 10/30/2024 DTap/Tdap Vaccines (3 - Td or Tdap) [...] the patient have Health Care Power of Weapons System Instrument Mechanic? Yes, not currently available Healthcare Agents on File Name Relationship Healthcare Agent Relationshi p Communication Cheli Banks Adult Child Health Care Repr esentative (appointed verbally by patient or by statute hierarchy) Care Teams Casket Assembler Relationship Specialty Start Date End Date Kumar Anders DO [address] [place] [address] PCP - General 12/14/07 documented as of this encounter
--- OUTSIDE RECORDS SUMMARY | 2024-11-09 15:29 | External Medical Summary ---
Author Name Unknown Address Unknown Organization K01:LABORATORY [facility] - [address] [place] [address] Laboratory Report Ordering Provider Test Date Status SHAWANDA PENN 10/31/2024 04:44:00 Final Observation Date Value Abnormality Reference (Units ) Status Magnesium 10/31/2024 04:44:00 2.0 1.5-2.6 (m g/dL) Final Performing Location LABORATORY [facility] - [address] [place] [address]
--- OUTSIDE RECORDS SUMMARY | 2024-11-09 15:29 | External Medical Summary ---
Author Name Unknown Address Unknown Organization K01:LABORATORY [facility] - [address] [place] [address] Laboratory Report Ordering Provider Test Date Status SHAWANDA PENN 10/31/2024 04:44:00 Final Observation Date Value Abnormality Reference (Units ) Status Phosphate 10/31/2024 04:44:00 4.5 2.5-4.8 (m g/dL) Final Performing Location LABORATORY [facility] - [address] [place] [address]
--- OUTSIDE RECORDS SUMMARY | 2024-11-09 15:29 | External Medical Summary ---
Author Name Unknown Address Unknown Organization K01:LABORATORY [facility] [place] - [address] [place] [address] Laboratory Report Ordering Provider Test Date Status LAMAR WOODRUFF 10/30/2024 05:31:00 Final Observation Date Value Abnormality Reference (Units ) Status HbA1C 10/30/2024 05:31:00 6.2 Above high normal 4. 0-5.6 (%) Final The use of HbA1c to monitor glycemic status is based on normal hemoglobin and HbA composition. This test should not be used in patients with abnormal hemoglobin that affects the half life of the red blood cell or the in vivo glycation rates. Glucose, estimated average 10/30/2024 05:31:00 131 Above high normal <126 (mg/dL) Elder flores Performing Location LABORATORY [facility] [place] [facility] [address] [facility] [address]
--- NOTE | 2024-11-09 15:51 | Emergency Department Note ---
Impression & Plan Sepsis, Acute on chronic hypoxic respiratory failure, Demand ischemia of myocardium, Pneumonia, Acute hypotension ED Provider Note NAME: JESSICA MCCANN AGE: 79 SEX: M : 1945 ARRIVES VIA: Walk-In INFORMANT: Patient ED PROVIDER(S): Srikanth Mccarthy DO CHIEF COMPLAINT: Shortness of breath HPI: Patient is a 79-year-old male with a past medical history of NSTEMI, hypertension, dyslipidemia, COPD and stroke who presents to the ER for shortness of breath and weakness. Family was present at bedside and notes that he had cardiac stents placed to [facility] last . This Monday he started getting short of breath and had a cough, congestion, and runny nose. No fevers. Denies any belly pain, nausea, vomiting, or diarrhea. No dysuria, urgency, or frequency. No other exacerbating or remitting factors. ADDITIONAL HISTORY OBTAINED: Per HPI Chronic Medical/Social Conditions Affecting Care: Per HPI PAST MEDICAL HISTORY:See Below PAST SURGICAL HISTORY:See Below FAMILY HISTORY:See Below SOCIAL HISTORY:See Below HOME MEDICATIONS:See Below ALLERGIES:See Below VITALS:See Below PHYSICAL EXAMINATION: GENERAL: Sitting up in bed, alert, well appearing, well nourished, no distress, non-toxic EYE EXAM: normal conjunctiva. OROPHARYNX: no exudate, no erythema, lips, buccal mucosa, and tongue normal and mucous membranes are moist NECK: supple, no nuchal rigidity, no adenopathy, non-tender LUNGS: Wheezing bilaterally with poor air movement. Normal chest wall mechanics HEART: no murmurs, S1 normal and S2 normal ABDOMEN: abdomen soft, non-tender, normo-active bowel sounds, no masses, no rebound or guarding. UPPER EXTREMITIES: upper extremities are grossly normal. LOWER EXTREMITIES: No pitting edema. NEURO EXAM: Normal sensorium, cranial nerves II-XII grossly intact, normal speech, no gross weakness of arms, no gross weakness of legs. MEDICAL DECISION MAKING: Patient is a 79-year-old male who presents to the ER for the above-stated complaint. IV was established and blood work was obtained. Upon arrival patient was found to be hypotensive with systolic pressures in the 70s. He was slightly hypoxic and placed on 2 L nasal cannula. Labs show a leukocytosis of 13,000. Mild anemia at 13.7. BMP with mild hypokalemia 3.2. Creatinine at 2 from baseline of 0.8 consistent with MONTY likely secondary to hypotension. Lactate was at 1.6. Troponin mildly elevated at 48 which I favor secondary to the hypotension. Chest x-ray with a lower lobe infiltrate which I favor is the likely source but cannot be certain. Patient was given IV cefepime. Was given 2 L of IV fluids and was not given a total of 2.5 L per ideal body weight for sepsis due to the chest x-ray read by radiology suggesting a pleural effusion and possible failure. Blood pressure did improve with the IV fluids to the low 100s and 90s. He was discussed with the hospitalist for further evaluation management treatment. Consults/Care Managements Discussions: Per [facility] Triage Nursing notes reviewed. Limited review of prior medical records performed Vital Signs: reviewed and remarkable for hypotensive Differential diagnosis: Differential diagnoses includes but is not limited to pneumonia, bronchitis, COPD/Asthma exacerbation, pneumothorax, pulmonary embolism, congestive heart failure, acute coronary syndrome ER treatment provided: See below Diagnostics interpreted by me include EKG and cardiac monitoring as listed below: -Cardiac Monitoring: An order was placed for continuous cardiac monitoring. The monitor shows a rate of 80 with sinus rhythm. -ECG: Sinus rhythm rate 82 Left axis Right bundle branch block QTc 497 -Laboratory studies:Interpreted by me as stated above in MDM and shown below. Imaging studies: Xrays: As interpreted by me: Portable AP upright 1 view of the chest shows posterior right base CTs show: CT of the chest abdomen pelvis shows a pneumonia Procedures:none Critical Care: I have personally spent 33 minutes of critical care time in the direct management of this patient. This includes bedside care, interpretation of diagnostic studies, and testing, discussion with consultants, patient, and family members, and other required patient management activities. This 33 minutes is in excess of all separately billable procedures. Past Med/Surg History Problem List (Updated 11/09/24 @ 18:47 by Donnie Johnston MD) Wound infection following procedure Chest pain Dyslipidemia, goal LDL below 70 HTN, goal below 130/80 ASCVD (arteriosclerotic cardiovascular disease) Demand ischemia of myocardium Acute on chronic hypoxic respiratory failure Sepsis Medical History Acute non-ST elevation myocardial infarction (NSTEMI) NSTEMI (non-ST elevated myocardial infarction) Stable angina Recent cerebrovascular accident (CVA) Stroke-like symptoms COPD exacerbation Left-sided chest pain Complicated UTI (urinary tract infection) Calculus of kidney Obesity (BMI 30.0-34.9) SANJAY (obstructive sleep apnea) Marijuana use Tobacco abuse Chronic hypoxic respiratory failure COPD (chronic obstructive pulmonary disease) T2DM (type 2 diabetes mellitus) CAD (coronary artery disease) HLD (hyperlipidemia) HTN (hypertension) Surgical History Hx of percutaneous left heart catheterization and 2 stents in 2007 LAD Hx laparoscopic cholecystectomy Hx of right heart catheterization 2 stents in 2005 1st and 2nd diagonal History of nasal surgery Hx of cataract extraction Hx of vasectomy Hx of tonsillectomy Family History Mother Osteoarthritis Coronary heart disease Hypertension Social History Smoking Status: Current every day smoker Tobacco Type: Cigarettes Second Hand Exposure: Yes; Do You Dip or Chew Tobacco: Yes; Hx Alcohol Use: No Hx Substance Use: No Preferred Language: Egyptian Communication Ability: Effective Maintainer Central Office Required: No Beliefs That Will Affect Care: None Current Living Situation: Family Current Living Situation Comment: lives with daughter, Bambi. and granddaughters Feels Safe at Home: Yes Assistive Devices: Cane, Glasses and Oxygen - Continuous Allergies Allergies Allergy/AdvReac Type Severity Reaction Status Date / Time No Known Allergies Allergy Verified 10/29/24 08:39 Home Meds Home Medications Medication Instructions Recorded Confirmed albuterol sulfate 90 mcg/actuation 2 puff inhalation Q4H PRN 07/21/24 11/09/24 aerosol inhaler cough,sob,wheezing aspirin 81 mg tablet,delayed 81 mg PO DAILY 07/21/24 11/09/24 release atorvastatin 40 mg tablet 40 mg PO DAILY 07/21/24 11/09/24 fluticasone fur. 100 mcg-umeclid 1 inh inhalation QAM 07/21/24 11/09/24 62.5 mcg-vilant 25 mcg inhalat.powder (Trelegy Ellipta) lisinopril 5 mg tablet 5 mg PO DAILY 07/21/24 11/09/24 metformin 500 mg tablet 500 mg PO QAM 07/21/24 11/09/24 nitroglycerin 0.4 mg sublingual 0.4 mg sublingual DIRECTED PRN 07/21/24 11/09/24 tablet Chest Pain tiotropium bromide 2.5 2 puff inhalation DAILY 07/21/24 11/09/24 mcg/actuation mist for inhalation (Spiriva Respimat) dexlansoprazole 60 mg 60 mg PO DAILY 10/28/24 11/09/24 capsule,biphase delayed release (Dexilant) roflumilast 500 mcg tablet 500 mcg PO DAILY 10/28/24 11/09/24 (Daliresp) sertraline 25 mg tablet 25 mg PO DAILY 10/28/24 11/09/24 sodium chloride 5 % eye drops 1 drp OPR QID 10/28/24 11/09/24 torsemide 20 mg tablet 40 mg PO BID 10/28/24 11/09/24 atorvastatin 80 mg tablet 80 mg PO DAILY 11/09/24 11/09/24 carvedilol 6.25 mg tablet 6.25 mg PO DAILY 11/09/24 11/09/24 ticagrelor 90 mg tablet (Brilinta) 90 mg PO DAILY 11/09/24 11/09/24 Previous Rx's Medication Instructions Recorded albuterol sulfate 2.5 mg/3 mL 2.5 mg (3 mL) inhalation Q4H PRN 07/23/24 (0.083 %) solution for nebulization sob #360 mL Results & Data (ED) Vital Signs Vital Signs - 24 hr 11/09/24 15:27 11/09/24 15:57 11/09/24 15:58 Temperature 36.4 C L Temperature Source Temporal Artery Scan Pulse Rate 96 H 78 78 Pulse Rate from SpO2 Sensor 79 Pulse Rhythm Regular Pulse Strength Normal Respiratory Rate 18 24 Respiratory Effort / Characteristics Non-Labored Spontaneous Respiratory Depth Normal Blood Pressure 74/51 L 72/47 L Blood Pressure Mean 58 55 Pulse Oximetry 94 93 Oxygen Delivery Method Room Air Oxygen Flow Rate 2 Sepsis New/Unexplained Change in Mental Status N/A Sepsis Action Taken by Nursing No Action Required 11/09/24 16:03 11/09/24 16:09 11/09/24 16:12 Temperature Temperature Source Pulse Rate 70 71 72 Pulse Rate from SpO2 Sensor 69 71 72 Pulse Rhythm Pulse Strength Respiratory Rate 25 H 29 H 26 H Respiratory Effort / Characteristics Respiratory Depth Blood Pressure 79/50 L 88/59 L 97/62 L Blood Pressure Mean 59 68 73 Pulse Oximetry 94 92 100 Oxygen Delivery Method Oxygen Flow Rate 2 2 2 Sepsis New/Unexplained Change in Mental Status Sepsis Action Taken by Nursing 11/09/24 16:15 11/09/24 16:20 11/09/24 16:21 Temperature Temperature Source Pulse Rate 79 Pulse Rate from SpO2 Sensor 79 Pulse Rhythm Pulse Strength Respiratory Rate 23 Respiratory Effort / Characteristics Respiratory Depth Blood Pressure 107/64 90/74 L 90/74 L Blood Pressure Mean 78 78 79 Pulse Oximetry 100 Oxygen Delivery Method Oxygen Flow Rate 2 Sepsis New/Unexplained Change in Mental Status Sepsis Action Taken by Nursing Laboratory Data 11/09/24 15:45 11/09/24 15:45 Lab Results 11/09/24 11/09/24 Range/Units 15:45 15:52 WBC 13.16 H (4.8-10.8) K/ul RBC 4.64 L (4.70-6.10) M/uL Hgb 13.7 L (14.0-18.0) g/dl POC Hgb 13.6 L (14.0-18.0) g/dl Hct 40.0 L (42.0-52.0) % POC Hct 40 L (42-52) % MCV 86.2 (80.0-100.0) fL MCH 29.5 (25.0-34.0) pg MCHC 34.3 (32.0-36.0) g/dL RDW Std Deviation 39.9 (36.4-46.3) fL RDW Coeff of Aileen 12.7 (11.5-14.5) % Plt Count 238 (130-400) K/uL MPV 11.2 (9.4-12.4) fL Immature Gran % (Auto) 0.5 % Neut % (Auto) 80.8 % Lymph % (Auto) 8.6 % [place] % (Auto) 9.2 % Eos % (Auto) 0.5 % Baso % (Auto) 0.4 % Neut # (Auto) 10.65 H (1.40-6.50) K/uL Lymph # (Auto) 1.13 L (1.20-3.40) K/uL [place] # (Auto) 1.21 H (0.11-0.59) K/uL Eos # (Auto) 0.06 (0.00-0.50) K/uL Baso # (Auto) 0.05 (0.00-0.20) K/uL Immature Gran # (Auto) 0.06 (0.01-0.20) K/uL POC Sodium 137 (135-144) mmol/L Sodium 137 (136-145) mmol/L POC Potassium 3.1 L (3.3-5.0) mmol/L Potassium 3.2 L (3.5-5.1) mmol/L POC Chloride 95 L (101-112) mmol/L Chloride 94 L (98-107) mmol/L Carbon Dioxide 32 (21-32) mmol/L POC Total CO2 30 (24-31) mmol/L Anion Gap 11 (3-11) POC Anion Gap 16.0 (16-25) mmol/L POC BUN 42 H (7-18) mg/dl BUN 47 H (6-23) mg/dl Creatinine 2.05 H (0.6-1.4) mg/dl POC Creatinine 2.2 H (0.6-1.3) mg/dl Est Cr Clr Drug Dosing Not Reportable eGFR 32.76 BUN/Creatinine Ratio 22.9 H (10-20) Glucose 136 H (70-99(Fasting)) mg/dl POC Glucose (other) 135 H (70-99) mg/dl Lactate 1.6 (0.4-2.0) mmol/L Calcium 9.4 (8.6-10.3) mg/dl POC Ioniz Calcium Janki 1.07 L (1.12-1.32) mmol/l Total Bilirubin 1.2 H (0.2-1.0) mg/dl AST 16 (13-39) U/L ALT 12 (7-52) U/L Alkaline Phosphatase 107 H (34-104) U/L Troponin I High Sens 48.8 H (0-20) pg/ml B-Natriuretic Peptide 40 (0-100) pg/ml Total Protein 7.4 (6.0-8.3) gm/dl Albumin 3.9 (3.4-5.0) gm/dl Globulin 3.5 (2.5-4.0) gm/dl Albumin/Globulin Ratio 1.1 (0.9-2) Lipase 34 (11-82) U/L Procalcitonin 0.08 (0-0.5) ng/ml Adenovirus (PCR) Not Detected (NotDetected) B. pertussis DNA (PCR) Not Detected (NotDetected) B.parapertussis DNA PCR Not Detected (NotDetected) C. pneumoniae DNA (PCR) Not Detected (NotDetected) Coronavirus OC43 (PCR) Not Detected (NotDetected) Coronavirus HKU1 (PCR) Not Detected (NotDetected) Coronavirus 229E (PCR) Not Detected (NotDetected) SARS-CoV-2 (PCR) Not Detected (NotDetected) Coronavirus NL63 (PCR) Not Detected (NotDetected) Human Metapneumovir PCR Not Detected (NotDetected) Influenza Type A (PCR) Not Detected (NotDetected) Influenza Type B (PCR) Not Detected (NotDetected) M. pneumoniae (PCR) Not Detected (NotDetected) Parainfluenza 1 (PCR) Not Detected (NotDetected) Parainfluenza 2 (PCR) Not Detected (NotDetected) Parainfluenza 3 (PCR) Not Detected (NotDetected) Parainfluenza 4 (PCR) Not Detected (NotDetected) RSV (PCR) Not Detected (NotDetected) Entero/Rhino (PCR) Not Detected (NotDetected) Administered Medications Discontinued Medications Albuterol (Albut/Ipratrop 3mg/0.5mg Neb 3 Ml Vial) 9 ml NEB NOW STA; Protocol Stop: 11/09/24 15:52 Last Admin: 11/09/24 16:08 Dose: 9 ml Documented By: JOSE Sodium Chloride (Nss) 1,000 mls @ 999 mls/hr IV .Q1H1M ONE Stop: 11/09/24 16:48 Last Infusion: 11/09/24 17:14 Dose: Infused Documented By: Admin: 11/09/24 16:02 Dose: 999 mls/hr Documented By: ZUNILDA Sodium Chloride (Nss) 1,000 mls @ 999 mls/hr IV .Q1H1M ONE Stop: 11/09/24 17:02 Last Infusion: 11/09/24 17:14 Dose: Infused Documented By: Admin: 11/09/24 16:03 Dose: 999 mls/hr Documented By: JOSE Cefepime HCl (Maxipime 2000mg) 2,000 mg in 20 mls @ 5 mls/min IV NOW STA; Protocol Stop: 11/09/24 16:06 Last Admin: 11/09/24 16:13 Dose: 5 mls/min Documented By: JOSE Methylprednisolone (Methylprednisolone 125 Mg/2 Ml Vial) 40 mg IV NOW STA Stop: 11/09/24 15:52 Last Admin: 11/09/24 16:09 Dose: 40 mg Documented By: JOSE Imaging Data Radiologist's Impression: Chest X-Ray 11/09/24 15:47 EXAM: XR chest 1V portable CLINICAL HISTORY: Chest Pain. TECHNIQUE: An X-ray image of the chest is obtained in AP projection. COMPARISON: prior 10/28/2024. FINDINGS: Pulmonary Parenchyma: Bilateral increased broncho vascular markings likely of congestive process. No evidence of consolidation, or collapse. Right-sided peripheral lower lung opacity parallel to chest wall likely mild pleural effusion. Veiling opacity over the left lung. Heart and Mediastinum: Heart size and shape are normal. No mediastinal widening or masses. No hilar or mediastinal lymphadenopathy. Bony Thorax: Right-sided angulation of lower ribs may be sequelae of previous trauma. Soft Tissues: Soft tissues overlying the chest wall are unremarkable. IMPRESSION: 1. Bilateral increased broncho vascular markings likely of the congestive process.(stable) 2. Right-sided possible mild pleural effusion. (newly developed) 3. Right-sided angulation of lower ribs may be sequelae of previous trauma. (stable) Electronically signed by Vandana Miller 11-09-2024 4:39 PM Discharge Plan Visit Data Chief Complaint: Shortness of Breath/Dyspnea Stated Complaint: SOB, HEART SURGERY 1 WK AGO ED Provider: Srikanth Mccarthy Discharge Problem: Sepsis, Acute on chronic hypoxic respiratory failure, Demand ischemia of myocardium, Pneumonia, Acute hypotension Forms Stand Alone Forms: My [facility] [employer] Prescriptions Prescriptions: No Action atorvastatin 40 mg tablet 40 mg PO DAILY metformin 500 mg tablet 500 mg PO QAM aspirin 81 mg Tablet,Delayed Release (Dr/Ec) 81 mg PO DAILY nitroglycerin 0.4 mg Tablet, Sublingual 0.4 mg sublingual DIRECTED PRN (Reason: Chest Pain) lisinopril 5 mg tablet 5 mg PO DAILY albuterol sulfate 90 mcg/actuation HFA aerosol inhaler 2 puff INHALATION Q4H PRN (Reason: cough,sob,wheezing) Spiriva Respimat 2.5 mcg/actuation Mist 2 puff INHALATION DAILY Trelegy Ellipta 100-62.5-25 mcg blister with device 1 inh INHALATION QAM albuterol sulfate 2.5 mg /3 mL (0.083 %) Solution For Nebulization 2.5 mg inhalation Q4H PRN (Reason: sob) Qty: 360 0RF sertraline 25 mg tablet 25 mg PO DAILY dexlansoprazole [Dexilant] 60 mg capsule,biphase delayed releas 60 mg PO DAILY torsemide 20 mg tablet 40 mg PO BID roflumilast [Daliresp] 500 mcg Tablet 500 mcg PO DAILY sodium chloride 5 % Drops 1 drp OPR QID Rx Instructions: am, noon, evening and HS atorvastatin 80 mg tablet 80 mg PO DAILY carvedilol 6.25 mg tablet 6.25 mg PO DAILY Brilinta 90 mg tablet 90 mg PO DAILY Referrals Referrals: Kumar Anders DO [Primary Care Provider] - Discharge Problem: Sepsis Qualifiers: Sepsis type: sepsis due to unspecified organism Sepsis acute organ dysfunction status: unspecified Qualified Code(s): A41.9 - Sepsis, unspecified organism Pneumonia Qualifiers: Pneumonia type: due to unspecified organism Laterality: unspecified laterality Lung location: unspecified part of lung Qualified Code(s): J18.9 - Pneumonia, unspecified organism
[2024-11-09] MEDS: SODIUM CHLORIDE 0.9% 1,000 ML IV ONE ×2 (16:02→16:03)
[2024-11-09 16:05] LABS: iSTAT Creatinine 2.2 mg/dl (0.6-1.3); iSTAT Hemoglobin 13.6 g/dl (14.0-18.0); iSTAT Ionized Calcium 1.07 mmol/l (1.12-1.32); iSTAT Potassium 3.1 mmol/L (3.3-5.0)
[2024-11-09] MEDS: ALBUT/IPRATROP 3MG/0.5MG NEB 3 ML VIAL NEB STA (16:08)
[2024-11-09] MEDS: methylPREDNISolone 125 MG/2 ML VIAL IV STA (16:09)
[2024-11-09] MEDS: CEFEPIME 2000MG 2,000 MG/20 ML SYR IV STA (16:13)
[2024-11-09 16:17] LABS: Basophils # (auto) 0.05 K/uL (0.00-0.20); Basophils % (auto) 0.4 %; Eosinophils # (auto) 0.06 K/uL (0.00-0.50); Eosinophils % (auto) 0.5 %; Hemoglobin 13.7 g/dl (14.0-18.0); Immature Granulocytes # (auto) 0.06 K/uL (0.01-0.20); Immature Granulocytes % (auto) 0.5 %; Lymphocytes # (auto) 1.13 K/uL (1.20-3.40); Lymphocytes % (auto) 8.6 %; Mean Corpuscular Hemoglobin 29.5 pg (25.0-34.0); Mean Corpuscular Hgb Conc 34.3 g/dL (32.0-36.0); Mean Corpuscular Volume 86.2 fL (80.0-100.0); Mean Platelet Volume 11.2 fL (9.4-12.4); Monocytes # (auto) 1.21 K/uL (0.11-0.59); Monocytes % (auto) 9.2 %; Neutrophils # (auto) 10.65 K/uL (1.40-6.50); Neutrophils % (auto) 80.8 %; Platelet Count 238 K/uL (130-400); RDW Coefficient of Variation 12.7 % (11.5-14.5); RDW Standard Deviation 39.9 fL (36.4-46.3); Red Blood Count 4.64 M/uL (4.70-6.10); White Blood Count 13.16 K/ul (4.8-10.8)
[2024-11-09 16:34] LABS: Alanine Aminotransferase 12 U/L (7-52); Albumin Globulin Ratio 1.1 (0.9-2); Albumin Level 3.9 gm/dl (3.4-5.0); Alkaline Phosphatase 107 U/L (34-104); Anion Gap 11 (3-11); Aspartate Aminotransferase 16 U/L (13-39); BUN Creatinine Ratio 22.9 (10-20); Bilirubin,Total 1.2 mg/dl (0.2-1.0); Blood Urea Nitrogen 47 mg/dl (6-23); Calcium 9.4 mg/dl (8.6-10.3); Carbon Dioxide 32 mmol/L (21-32); Chloride 94 mmol/L (98-107); Globulin 3.5 gm/dl (2.5-4.0); Glucose 136 mg/dl (70-99(Fasting)); Lipase 34 U/L (11-82); Potassium 3.2 mmol/L (3.5-5.1); Sodium 137 mmol/L (136-145); Total Protein 7.4 gm/dl (6.0-8.3)
--- NOTE | 2024-11-09 16:40 | XRay Report ---
EXAM: XR chest 1V portable CLINICAL HISTORY: Chest Pain. TECHNIQUE: An X-ray image of the chest is obtained in AP projection. COMPARISON: prior 10/28/2024. FINDINGS: Pulmonary Parenchyma: Bilateral increased broncho vascular markings likely of congestive process. No evidence of consolidation, or collapse. Right-sided peripheral lower lung opacity parallel to chest wall likely mild pleural effusion. Veiling opacity over the left lung. Heart and Mediastinum: Heart size and shape are normal. No mediastinal widening or masses. No hilar or mediastinal lymphadenopathy. Bony Thorax: Right-sided angulation of lower ribs may be sequelae of previous trauma. Soft Tissues: Soft tissues overlying the chest wall are unremarkable. IMPRESSION: 1. Bilateral increased broncho vascular markings likely of the congestive process.(stable) 2. Right-sided possible mild pleural effusion. (newly developed) 3. Right-sided angulation of lower ribs may be sequelae of previous trauma. (stable) Electronically signed by Vandana Miller 11-09-2024 4:39 PM
[2024-11-09 16:41] LABS: Troponin I High Sensitivity 48.8 pg/ml (0-20)
[2024-11-09 17:06] LABS: Adenovirus PCR Not Detected (NotDetected); Bordetella parapertussis PCR Not Detected (NotDetected); Bordetella pertussis PCR Not Detected (NotDetected); Chlamydia pneumoniae PCR Not Detected (NotDetected); Coronavirus 229E PCR Not Detected (NotDetected); Coronavirus CoV-2 (COVID19)PCR Not Detected (NotDetected); Coronavirus HKU1 PCR Not Detected (NotDetected); Coronavirus NL63 PCR Not Detected (NotDetected); Coronavirus OC43PCR Not Detected (NotDetected); Human Metapneumovirus PCR Not Detected (NotDetected); Influenza A PCR Not Detected (NotDetected); Influenza B PCR Not Detected (NotDetected); Mycoplasma pneumoniae PCR Not Detected (NotDetected); Parainfluenza Virus 1 PCR Not Detected (NotDetected); Parainfluenza Virus 2 PCR Not Detected (NotDetected); Parainfluenza Virus 3 PCR Not Detected (NotDetected); Parainfluenza Virus 4 PCR Not Detected (NotDetected); Respiratory Syncytial VirusPCR Not Detected (NotDetected); Rhinovirus/Enterovirus PCR Not Detected (NotDetected)
[2024-11-09] MEDS ORDERED: VANCOMYCIN CONSULT ACTIVE PRN (17:34)
--- NOTE | 2024-11-09 18:33 | History & Physical Report ---
Date of Service November 09, 2024 Assessment & Plan (1) Sepsis: Plan: -as noted by tachycardia, tachypnea, leukocytosis -c/b MONTY -unclear source, imaging unrevealing, could be right inguinal wound, also could be developing bacterial pneumonia vs. intraabdominal source -update: imaging ordered reveals right lower lobe infiltrate consistent with pneumonia, recent hospitalization as well Plan: -vanc/cefepime for now, MRSA swab, deescalate with culture data -resp culture, cultures ordered, f/u -hold diuresis, received fluids in ED -hold torsemide (2) Acute on chronic hypoxic respiratory failure: Plan: -2/2 COPD and complicated by acute HAP Plan: -incentive spirometer, abx as above, percussion ordered -diuresis resumption once BP stabilizes -hold further fluids given 2L in ED (3) HAP (hospital-acquired pneumonia): Plan: - as evidenced by tachycardia, tachypnea, productive cough, imaging -hopsitalized 1 week ago Plan: -vanc/cefepime for now -see above for further workup (4) ASCVD (arteriosclerotic cardiovascular disease): Plan: -has severe disease, hx of stents in 2007 and one week ago -s/p 3 stents 2007 D1/D2/LAD, s/p RCA stent 10/2024 Plan: -continue aspirin, statin, lisinopril, coreg (5) COPD (chronic obstructive pulmonary disease): Plan: -likely exaccerbated by HAP Plan: -duonebs q6hrs and prn ordered -see above -given no wheezing on exam hold prednisone for now (6) Wound infection following procedure: Plan: -has wound in right inguinal region that has opened and per aughter had some purulent drainage from it Plan: -wound care consult (7) Dyslipidemia, goal LDL below 70: Plan: -continue statin (8) HTN, goal below 130/80: Plan: -see above (9) Demand ischemia of myocardium: Plan: -likely in setting of sepsis Plan: -trend troponin -continue home meds Plan Feeding/fluids: regular Analgesia: tylenol Sedation: none Thromboprophylaxis: lovenox Head up position: 30 degrees Ulcer prophylaxis: none Glycemic control: none Spontaneous breathing trial: Bowel care: miralax Indwelling catheter removal: none Deescalation of antibiotics: vanc/cefepime, deescalate based on culture results I spent a total of 75 minutes coordinating, documenting, and providing care for this patient excluding time spent in the performance of separately billed services. History of Present Illness Chief Complaint: shortness of breath Primary Care Provider: Kumar Anders, DO 79 yo male with pmhx of COPD, CAD (s/p 3 stents 2007 D1/D2/LAD, s/p RCA stent 10/2024), COPD (3L baseline), DM type 2, depresssion, RBBB who presents for SOB. He states he has been having a severe cough for the past few days. He also states that he has been having diarrhea, some nausea, and low appetite. Michelle contreras has noticed that his wound site on the right side burst open a bit and has had some purulent drainage from it. Other than that, has had chest pain since Monday. No tobacco or alcohol use. Discussed code status, would like to be full code. Would like grandaughters to make decisions for him (all 3 in room, live with him at home). Allergies Allergy/AdvReac Type Severity Reaction Status Date / Time No Known Allergies Allergy Verified 10/29/24 08:39 Home Medications Medication Instructions Recorded Confirmed Type albuterol sulfate 90 mcg/actuation 2 puff inhalation Q4H PRN 07/21/24 11/09/24 History aerosol inhaler cough,sob,wheezing aspirin 81 mg tablet,delayed 81 mg PO DAILY 07/21/24 11/09/24 History release atorvastatin 40 mg tablet 40 mg PO DAILY 07/21/24 11/09/24 History fluticasone fur. 100 mcg-umeclid 1 inh inhalation QAM 07/21/24 11/09/24 History 62.5 mcg-vilant 25 mcg inhalat.powder (Trelegy Ellipta) lisinopril 5 mg tablet 5 mg PO DAILY 07/21/24 11/09/24 History metformin 500 mg tablet 500 mg PO QAM 07/21/24 11/09/24 History nitroglycerin 0.4 mg sublingual 0.4 mg sublingual DIRECTED PRN 07/21/24 11/09/24 History tablet Chest Pain tiotropium bromide 2.5 2 puff inhalation DAILY 07/21/24 11/09/24 History mcg/actuation mist for inhalation (Spiriva Respimat) albuterol sulfate 2.5 mg/3 mL 2.5 mg (3 mL) inhalation Q4H PRN 07/23/24 11/09/24 Rx (0.083 %) solution for nebulization sob #360 mL dexlansoprazole 60 mg 60 mg PO DAILY 10/28/24 11/09/24 History capsule,biphase delayed release (Dexilant) roflumilast 500 mcg tablet 500 mcg PO DAILY 10/28/24 11/09/24 History (Daliresp) sertraline 25 mg tablet 25 mg PO DAILY 10/28/24 11/09/24 History sodium chloride 5 % eye drops 1 drp OPR QID 10/28/24 11/09/24 History torsemide 20 mg tablet 40 mg PO BID 10/28/24 11/09/24 History atorvastatin 80 mg tablet 80 mg PO DAILY 11/09/24 11/09/24 History carvedilol 6.25 mg tablet 6.25 mg PO DAILY 11/09/24 11/09/24 History ticagrelor 90 mg tablet (Brilinta) 90 mg PO DAILY 11/09/24 11/09/24 History Past Med/Surg History Problem List (Updated 11/09/24 @ 19:02 by Donnie Johnston MD) HAP (hospital-acquired pneumonia) Wound infection following procedure Chest pain Dyslipidemia, goal LDL below 70 HTN, goal below 130/80 ASCVD (arteriosclerotic cardiovascular disease) Demand ischemia of myocardium Acute on chronic hypoxic respiratory failure Sepsis Medical History Acute non-ST elevation myocardial infarction (NSTEMI) NSTEMI (non-ST elevated myocardial infarction) Stable angina Recent cerebrovascular accident (CVA) Stroke-like symptoms COPD exacerbation Left-sided chest pain Complicated UTI (urinary tract infection) Calculus of kidney Obesity (BMI 30.0-34.9) SANJAY (obstructive sleep apnea) Marijuana use Tobacco abuse Chronic hypoxic respiratory failure COPD (chronic obstructive pulmonary disease) T2DM (type 2 diabetes mellitus) CAD (coronary artery disease) HLD (hyperlipidemia) HTN (hypertension) Surgical History Hx of percutaneous left heart catheterization and 2 stents in 2007 LAD Hx laparoscopic cholecystectomy Hx of right heart catheterization 2 stents in 2005 1st and 2nd diagonal History of nasal surgery Hx of cataract extraction Hx of vasectomy Hx of tonsillectomy Family History Mother Osteoarthritis Coronary heart disease Hypertension Social History Smoking Status: Current every day smoker Tobacco Type: Cigarettes Second Hand Exposure: Yes; Do You Dip or Chew Tobacco: Yes; Hx Alcohol Use: No Hx Substance Use: No Preferred Language: Telugu Communication Ability: Effective Copyright Expert Required: No Beliefs That Will Affect Care: None Current Living Situation: Family Current Living Situation Comment: lives with daughter, Bambi. and granddaughters Feels Safe at Home: Yes Assistive Devices: Cane, Glasses and Oxygen - Continuous Review of Systems Review of Systems: CONSTITUTIONAL: fatigue, SOB EYES: Patient denies any visual symptoms. EARS, NOSE, AND THROAT: No difficulties with hearing. No symptoms of rhinitis or sore throat. CARDIOVASCULAR: chest pain RESPIRATORY: shortness of breath GI: No nausea, vomiting, diarrhea, constipation, abdominal pain, hematochezia or melena. : No urinary hesitancy or dribbling. No nocturia or urinary frequency. No abnormal urethral discharge. MUSCULOSKELETAL: No myalgias or arthralgias. NEUROLOGIC: No chronic headaches, no seizures. Patient denies numbness, tingling or weakness. PSYCHIATRIC: Patient denies problems with mood disturbance. No problems with anxiety. ENDOCRINE: No excessive urination or excessive thirst. DERMATOLOGIC: Patient denies any rashes or skin changes. Physical Exam Physical Exam: Gen: A&O 3 NAD HEENT: NCAT, EOMI, not icteric. External ears normal. No rhinorrhea. Moist mucous membranes. Neck: Supple, full range of motion, no observable masses, No meningeal sign. Lungs: No Respiratory distress. CV: heart sounds diminished Abdomen: Soft, nondistended, No rebound tenderness. MSK: No joint swelling, no redness. Skin: noted right inguinal wound, skin tears, some purulence noted Neuro: Normal Gait, Grossly intact. Psych: Appropriate for situation. Results & Data Results & Data Vital Signs (Past 12 Hours) Vital Signs Temp Pulse Resp BP Pulse Ox O2 Del Method O2 Flow Rate 11/09/24 16:21 79 23 90/74 L 100 11/09/24 16:20 90/74 L 11/09/24 16:15 107/64 2 11/09/24 16:12 72 26 H 97/62 L 100 2 11/09/24 16:09 71 29 H 88/59 L 92 2 11/09/24 16:03 70 25 H 79/50 L 94 2 11/09/24 15:58 78 11/09/24 15:57 78 24 72/47 L 93 2 11/09/24 15:27 36.4 C L 96 H 18 74/51 L 94 Room Air Laboratory Results Laboratory Results WBC 13.16 K/ul (4.8-10.8) H 11/09/24 15:45 RBC 4.64 M/uL (4.70-6.10) L 11/09/24 15:45 Hgb 13.7 g/dl (14.0-18.0) L 11/09/24 15:45 POC Hgb 13.6 g/dl (14.0-18.0) L 11/09/24 15:52 Hct 40.0 % (42.0-52.0) L 11/09/24 15:45 POC Hct 40 % (42-52) L 11/09/24 15:52 MCV 86.2 fL (80.0-100.0) 11/09/24 15:45 MCH 29.5 pg (25.0-34.0) 11/09/24 15:45 MCHC 34.3 g/dL (32.0-36.0) 11/09/24 15:45 RDW Std Deviation 39.9 fL (36.4-46.3) 11/09/24 15:45 RDW Coeff of Aileen 12.7 % (11.5-14.5) 11/09/24 15:45 Plt Count 238 K/uL (130-400) 11/09/24 15:45 MPV 11.2 fL (9.4-12.4) 11/09/24 15:45 Immature Gran % (Auto) 0.5 % 11/09/24 15:45 Neut % (Auto) 80.8 % 11/09/24 15:45 Lymph % (Auto) 8.6 % 11/09/24 15:45 [place] % (Auto) 9.2 % 11/09/24 15:45 Eos % (Auto) 0.5 % 11/09/24 15:45 Baso % (Auto) 0.4 % 11/09/24 15:45 Neut # (Auto) 10.65 K/uL (1.40-6.50) H 11/09/24 15:45 Lymph # (Auto) 1.13 K/uL (1.20-3.40) L 11/09/24 15:45 [place] # (Auto) 1.21 K/uL (0.11-0.59) H 11/09/24 15:45 Eos # (Auto) 0.06 K/uL (0.00-0.50) 11/09/24 15:45 Baso # (Auto) 0.05 K/uL (0.00-0.20) 11/09/24 15:45 Immature Gran # (Auto) 0.06 K/uL (0.01-0.20) 11/09/24 15:45 POC Sodium 137 mmol/L (135-144) 11/09/24 15:52 Sodium 137 mmol/L (136-145) 11/09/24 15:45 POC Potassium 3.1 mmol/L (3.3-5.0) L 11/09/24 15:52 Potassium 3.2 mmol/L (3.5-5.1) L 11/09/24 15:45 POC Chloride 95 mmol/L (101-112) L 11/09/24 15:52 Chloride 94 mmol/L (98-107) L 11/09/24 15:45 Carbon Dioxide 32 mmol/L (21-32) 11/09/24 15:45 POC Total CO2 30 mmol/L (24-31) 11/09/24 15:52 Anion Gap 11 (3-11) 11/09/24 15:45 POC Anion Gap 16.0 mmol/L (16-25) 11/09/24 15:52 POC BUN 42 mg/dl (7-18) H 11/09/24 15:52 BUN 47 mg/dl (6-23) H 11/09/24 15:45 Creatinine 2.05 mg/dl (0.6-1.4) H 11/09/24 15:45 POC Creatinine 2.2 mg/dl (0.6-1.3) H 11/09/24 15:52 Est Cr Clr Drug Dosing Not Reportable 11/09/24 15:45 eGFR 32.76 11/09/24 15:45 BUN/Creatinine Ratio 22.9 (10-20) H 11/09/24 15:45 Glucose 136 mg/dl (70-99(Fasting)) H 11/09/24 15:45 POC Glucose (other) 135 mg/dl (70-99) H 11/09/24 15:52 Lactate 1.6 mmol/L (0.4-2.0) 11/09/24 15:45 Calcium 9.4 mg/dl (8.6-10.3) 11/09/24 15:45 POC Ioniz Calcium Janki 1.07 mmol/l (1.12-1.32) L 11/09/24 15:52 Total Bilirubin 1.2 mg/dl (0.2-1.0) H 11/09/24 15:45 AST 16 U/L (13-39) 11/09/24 15:45 ALT 12 U/L (7-52) 11/09/24 15:45 Alkaline Phosphatase 107 U/L (34-104) H 11/09/24 15:45 Troponin I High Sens 48.8 pg/ml (0-20) H 11/09/24 15:45 B-Natriuretic Peptide 40 pg/ml (0-100) 11/09/24 15:45 Total Protein 7.4 gm/dl (6.0-8.3) 11/09/24 15:45 Albumin 3.9 gm/dl (3.4-5.0) 11/09/24 15:45 Globulin 3.5 gm/dl (2.5-4.0) 11/09/24 15:45 Albumin/Globulin Ratio 1.1 (0.9-2) 11/09/24 15:45 Lipase 34 U/L (11-82) 11/09/24 15:45 Procalcitonin 0.08 ng/ml (0-0.5) 11/09/24 15:45 Adenovirus (PCR) Not Detected (NotDetected) 11/09/24 15:45 B. pertussis DNA (PCR) Not Detected (NotDetected) 11/09/24 15:45 B.parapertussis DNA PCR Not Detected (NotDetected) 11/09/24 15:45 C. pneumoniae DNA (PCR) Not Detected (NotDetected) 11/09/24 15:45 Coronavirus OC43 (PCR) Not Detected (NotDetected) 11/09/24 15:45 Coronavirus HKU1 (PCR) Not Detected (NotDetected) 11/09/24 15:45 Coronavirus 229E (PCR) Not Detected (NotDetected) 11/09/24 15:45 SARS-CoV-2 (PCR) Not Detected (NotDetected) 11/09/24 15:45 Coronavirus NL63 (PCR) Not Detected (NotDetected) 11/09/24 15:45 Human Metapneumovir PCR Not Detected (NotDetected) 11/09/24 15:45 Influenza Type A (PCR) Not Detected (NotDetected) 11/09/24 15:45 Influenza Type B (PCR) Not Detected (NotDetected) 11/09/24 15:45 M. pneumoniae (PCR) Not Detected (NotDetected) 11/09/24 15:45 Parainfluenza 1 (PCR) Not Detected (NotDetected) 11/09/24 15:45 Parainfluenza 2 (PCR) Not Detected (NotDetected) 11/09/24 15:45 Parainfluenza 3 (PCR) Not Detected (NotDetected) 11/09/24 15:45 Parainfluenza 4 (PCR) Not Detected (NotDetected) 11/09/24 15:45 RSV (PCR) Not Detected (NotDetected) 11/09/24 15:45 Entero/Rhino (PCR) Not Detected (NotDetected) 11/09/24 15:45 Impressions Chest X-Ray 11/09/24 15:47 EXAM: XR chest 1V portable CLINICAL HISTORY: Chest Pain. TECHNIQUE: An X-ray image of the chest is obtained in AP projection. COMPARISON: prior 10/28/2024. FINDINGS: Pulmonary Parenchyma: Bilateral increased broncho vascular markings likely of congestive process. No evidence of consolidation, or collapse. Right-sided peripheral lower lung opacity parallel to chest wall likely mild pleural effusion. Veiling opacity over the left lung. Heart and Mediastinum: Heart size and shape are normal. No mediastinal widening or masses. No hilar or mediastinal lymphadenopathy. Bony Thorax: Right-sided angulation of lower ribs may be sequelae of previous trauma. Soft Tissues: Soft tissues overlying the chest wall are unremarkable. IMPRESSION: 1. Bilateral increased broncho vascular markings likely of the congestive process.(stable) 2. Right-sided possible mild pleural effusion. (newly developed) 3. Right-sided angulation of lower ribs may be sequelae of previous trauma. (stable) Electronically signed by Vandana Miller 11-09-2024 4:39 PM Abdomen/Pelvis CT 11/09/24 17:30 CT CHEST ABDOMEN and PELVIS WITHOUT CONTRAST INDICATION: PAIN TECHNIQUE: CT of chest, abdomen and pelvis was obtained without intravenous contrast. IV CONTRAST: None Enteric contrast: Not Given COMPARISON: None FINDINGS: LOWER NECK: Normal thyroid. LYMPH NODES: A few small nonenlarged lymph nodes in the mediastinum. No lymphadenopathy by size criteria. CARDIOVASCULAR: Cardiac size is enlarged. Coronary artery calcifications are noted. No aortic aneurysm. LUNGS: The trachea and central bronchi are widely patent. Acute infiltrate noted in the right lower lobe of the lung. Peribronchial cuffing. There are scattered pulm nodular densities measuring up to 4 mm,for example left upper lobe (series 2, image 29). PLEURA: There are no pleural effusions. There is no pneumothorax. LIVER: No focal lesion identified on this noncontrast CT. GALLBLADDER/BILIARY: Surgically absent gallbladder. No abnormal biliary dilatation. SPLEEN: Unremarkable. PANCREAS: Unremarkable. ADRENALS: Unremarkable. KIDNEYS: Bilateral calcific densities over the renal parenchyma measuring up to 9 mm may represent combination of dystrophic parenchymal calcifications and nonobstructing renal calculi. PERITONEUM/RETROPERITONEUM. No lymphadenopathy by size criteria. Mild aneurysmal change of the abdominal aorta measuring up to 2.4 cm. Extensive atherosclerosis of the abdominal aorta with multifocal stenoses of the celiac trunk, the SMA and KINA. GASTROINTESTINAL: No obstruction. Extensive colonic diverticulosis over the sigmoid colon. There is rectal wall thickening with inflammatory changes in the perirectal space. Appendix is normal. REPRODUCTIVE: Mild prostamegaly ABDOMINAL WALL: There is a moderate-sized anterior abdominal wall hernia defect containing a segment of the transverse colon without evidence of obstruction. BONES: No acute findings. Chronic appearing right-sided rib cage deformities IMPRESSION: Acute pneumonia of the right lower lobe. Infectious/inflammatory bronchiolitis. Cardiomegaly, extensive coronary calcifications. Scattered pulmonary nodular densities measuring to 4 mm may represent infectious/inflammatory nodules or neoplastic nodules. Long segment rectal inflammation suggesting proctitis. Nodular and eccentric soft tissue thickening of the rectum may represent processes such as hemorrhoid however when clinically able, recommend direct inspection to exclude more worrisome process such as neoplasm. Electronically signed by Adama Donovan 11-09-2024 6:[address] 11/09/24 17:30 CT CHEST ABDOMEN and PELVIS WITHOUT CONTRAST INDICATION: PAIN TECHNIQUE: CT of chest, abdomen and pelvis was obtained without intravenous contrast. IV CONTRAST: None Enteric contrast: Not Given COMPARISON: None FINDINGS: LOWER NECK: Normal thyroid. LYMPH NODES: A few small nonenlarged lymph nodes in the mediastinum. No lymphadenopathy by size criteria. CARDIOVASCULAR: Cardiac size is enlarged. Coronary artery calcifications are noted. No aortic aneurysm. LUNGS: The trachea and central bronchi are widely patent. Acute infiltrate noted in the right lower lobe of the lung. Peribronchial cuffing. There are scattered pulm nodular densities measuring up to 4 mm,for example left upper lobe (series 2, image 29). PLEURA: There are no pleural effusions. There is no pneumothorax. LIVER: No focal lesion identified on this noncontrast CT. GALLBLADDER/BILIARY: Surgically absent gallbladder. No abnormal biliary dilatation. SPLEEN: Unremarkable. PANCREAS: Unremarkable. ADRENALS: Unremarkable. KIDNEYS: Bilateral calcific densities over the renal parenchyma measuring up to 9 mm may represent combination of dystrophic parenchymal calcifications and nonobstructing renal calculi. PERITONEUM/RETROPERITONEUM. No lymphadenopathy by size criteria. Mild aneurysmal change of the abdominal aorta measuring up to 2.4 cm. Extensive atherosclerosis of the abdominal aorta with multifocal stenoses of the celiac trunk, the SMA and KINA. GASTROINTESTINAL: No obstruction. Extensive colonic diverticulosis over the sigmoid colon. There is rectal wall thickening with inflammatory changes in the perirectal space. Appendix is normal. REPRODUCTIVE: Mild prostamegaly ABDOMINAL WALL: There is a moderate-sized anterior abdominal wall hernia defect containing a segment of the transverse colon without evidence of obstruction. BONES: No acute findings. Chronic appearing right-sided rib cage deformities IMPRESSION: Acute pneumonia of the right lower lobe. Infectious/inflammatory bronchiolitis. Cardiomegaly, extensive coronary calcifications. Scattered pulmonary nodular densities measuring to 4 mm may represent infectious/inflammatory nodules or neoplastic nodules. Long segment rectal inflammation suggesting proctitis. Nodular and eccentric soft tissue thickening of the rectum may represent processes such as hemorrhoid however when clinically able, recommend direct inspection to exclude more worrisome process such as neoplasm. Electronically signed by Adama Donovan 11-09-2024 6:35 PM Code Status & VTE Plan VTE Prophylaxis Plan VTE Prophylaxis will be ordered: Yes (1) Sepsis Acute renal failure type: with other specified pathological lesion Sepsis acute organ dysfunction status: with acute organ dysfunction Sepsis type: sepsis due to unspecified organism Severe sepsis acute organ dysfunction type: acute renal failure Severe sepsis shock status: without septic shock Qualified Code(s): A41.9 - Sepsis, unspecified organism; R65.20 - Severe sepsis without septic shock; N17.8 - Other acute kidney failure (5) COPD (chronic obstructive pulmonary disease) COPD type: emphysema Emphysema type: centrilobular Qualified Code(s): J43.2 - Centrilobular emphysema
--- NOTE | 2024-11-09 18:36 | CT Scan Report ---
CT CHEST ABDOMEN and PELVIS WITHOUT CONTRAST INDICATION: PAIN TECHNIQUE: CT of chest, abdomen and pelvis was obtained without intravenous contrast. IV CONTRAST: None Enteric contrast: Not Given COMPARISON: None FINDINGS: LOWER NECK: Normal thyroid. LYMPH NODES: A few small nonenlarged lymph nodes in the mediastinum. No lymphadenopathy by size criteria. CARDIOVASCULAR: Cardiac size is enlarged. Coronary artery calcifications are noted. No aortic aneurysm. LUNGS: The trachea and central bronchi are widely patent. Acute infiltrate noted in the right lower lobe of the lung. Peribronchial cuffing. There are scattered pulm nodular densities measuring up to 4 mm,for example left upper lobe (series 2, image 29). PLEURA: There are no pleural effusions. There is no pneumothorax. LIVER: No focal lesion identified on this noncontrast CT. GALLBLADDER/BILIARY: Surgically absent gallbladder. No abnormal biliary dilatation. SPLEEN: Unremarkable. PANCREAS: Unremarkable. ADRENALS: Unremarkable. KIDNEYS: Bilateral calcific densities over the renal parenchyma measuring up to 9 mm may represent combination of dystrophic parenchymal calcifications and nonobstructing renal calculi. PERITONEUM/RETROPERITONEUM. No lymphadenopathy by size criteria. Mild aneurysmal change of the abdominal aorta measuring up to 2.4 cm. Extensive atherosclerosis of the abdominal aorta with multifocal stenoses of the celiac trunk, the SMA and KINA. GASTROINTESTINAL: No obstruction. Extensive colonic diverticulosis over the sigmoid colon. There is rectal wall thickening with inflammatory changes in the perirectal space. Appendix is normal. REPRODUCTIVE: Mild prostamegaly ABDOMINAL WALL: There is a moderate-sized anterior abdominal wall hernia defect containing a segment of the transverse colon without evidence of obstruction. BONES: No acute findings. Chronic appearing right-sided rib cage deformities IMPRESSION: Acute pneumonia of the right lower lobe. Infectious/inflammatory bronchiolitis. Cardiomegaly, extensive coronary calcifications. Scattered pulmonary nodular densities measuring to 4 mm may represent infectious/inflammatory nodules or neoplastic nodules. Long segment rectal inflammation suggesting proctitis. Nodular and eccentric soft tissue thickening of the rectum may represent processes such as hemorrhoid however when clinically able, recommend direct inspection to exclude more worrisome process such as neoplasm. Electronically signed by Adama Donovan 11-09-2024 6:35 PM
[2024-11-09] MEDS: POTASSIUM CHLORIDE CRTAB 20 MEQ TABCR PO STA (18:42)
[2024-11-09] MEDS: Patient's HEIGHT &/or WEIGHT Needed STA (18:44)
[2024-11-09] MEDS ORDERED: ALBUT/IPRATROP 3MG/0.5MG NEB 3 ML VIAL NEB PRN (19:02)
[2024-11-09] MEDS ORDERED: ONDANSETRON INJ 2 MG/ML 2 ML VIAL IV PRN (19:31)
[2024-11-09] MEDS ORDERED: ALBUTEROL HFA 8 GM INHALER INH PRN (19:31)
[2024-11-09] MEDS ORDERED: POLYETHYLENE (MIRALAX) 17 GM PACK PO PRN (19:31)
[2024-11-09] MEDS ORDERED: ACETAMINOPHEN 325 MG TAB PO PRN (19:31)
[2024-11-09] MEDS: VANCOMYCIN HCL 1,750 MG in SODIUM CHLORIDE 0.9% 500 ML IV ONE (19:46)
[2024-11-09] MEDS: ENOXAPARIN INJ 40 MG/0.4 ML SYR SQ SCH (20:47)
[2024-11-10] MEDS: POTASSIUM CHLORIDE CRTAB 20 MEQ TABCR PO ONE (01:23)
[2024-11-10] MEDS: ALBUT/IPRATROP 3MG/0.5MG NEB 3 ML VIAL NEB SCH (01:28)
[2024-11-10] MEDS: CEFEPIME 2000MG 2,000 MG/20 ML SYR IV SCH ×2 (04:01→14:38)
[2024-11-10 06:24] LABS: Hematocrit (blood only) 34.6 % (42.0-52.0); Hemoglobin 11.6 g/dl (14.0-18.0); Mean Corpuscular Hemoglobin 29.1 pg (25.0-34.0); Mean Corpuscular Hgb Conc 33.5 g/dL (32.0-36.0); Mean Corpuscular Volume 86.9 fL (80.0-100.0); Mean Platelet Volume 11.3 fL (9.4-12.4); Platelet Count 217 K/uL (130-400); RDW Coefficient of Variation 12.7 % (11.5-14.5); RDW Standard Deviation 40.1 fL (36.4-46.3); Red Blood Count 3.98 M/uL (4.70-6.10); White Blood Count 10.41 K/ul (4.8-10.8)
[2024-11-10 06:35] LABS: BUN Creatinine Ratio 36.1 (10-20); Calcium 8.5 mg/dl (8.6-10.3); Creatinine Clr Calc Pharmacy 61.8 ml/min; Magnesium 1.6 mg/dl (1.7-2.4); Potassium 3.8 mmol/L (3.5-5.1)
[2024-11-10] MEDS ORDERED: UMECLIDINIUM/VILANTEROL 62.5/25MCG 7 PUFFS/INHALER INH SCH (09:00)
[2024-11-10] MEDS ORDERED: NON-FORMULARY MEDICATION (Fluticasone-Umeclidin-Vilanter [Trelegy Ellipta] 100-62.5-25 mcg INH SCH (09:00)
[2024-11-10] MEDS ORDERED: ATORVASTATIN 40 MG TAB PO SCH (09:00)
[2024-11-10] MEDS ORDERED: lisinopril 5 MG TAB PO SCH (09:00)
[2024-11-10] MEDS: carvediloL 6.25 MG TAB PO SCH (09:07)
[2024-11-10] MEDS: ROFLUMILAST 500 MCG TAB PO SCH (09:07)
[2024-11-10] MEDS: ASPIRIN 81 MG ECTAB PO SCH (09:07)
[2024-11-10] MEDS: ATORVASTATIN 40 MG TAB PO SCH (09:07)
[2024-11-10] MEDS: TICAGRELOR 90 MG TAB PO SCH (09:08)
[2024-11-10] MEDS: SERTRALINE HCL 50 MG TABLET PO SCH (09:08)
[2024-11-10] MEDS: PANTOprazole 40 MG TAB PO SCH (09:08)
[2024-11-10] MEDS: UMECLIDINIUM/VILANTEROL 62.5/25MCG 7 PUFFS/INHALER INH SCH (09:09)
[2024-11-10] MEDS: FLUTICASONE FUROATE 100MCG 14 PUFFS/INHALER INH SCH (09:10)
[2024-11-10] MEDS ORDERED: VANCOMYCIN CONSULT ACTIVE PRN (10:17)
--- NOTE | 2024-11-10 10:25 | Hospitalist Progress Note ---
Date of Service November 10, 2024 Assessment & Plan (1) Sepsis: (2) Acute on chronic hypoxic respiratory failure: (3) HAP (hospital-acquired pneumonia): (4) ASCVD (arteriosclerotic cardiovascular disease): (5) COPD (chronic obstructive pulmonary disease): (6) Wound infection following procedure: (7) Dyslipidemia, goal LDL below 70: (8) HTN, goal below 130/80: Plan: see above (9) Demand ischemia of myocardium: Plan Patient is a 79-year-old male with past medical history of respiratory failure on chronic oxygen therapy 3L, SANJAY, COPD, Right heart failure, CAD with hx of angioplasty and total of 4 stents, HTN, HLD, Chronic RBBB, tobacco abuse, hx of cva presented to the hospital with shortness of breath and weakness. Patient was recently hospitalized at [facility] with NSTEMI on 10/29 and was transferred to [facility] for cardiac cath. Patient underwent IVUS guided PCI and Rota atherectomy without complication on 10/31/2024; found to have right femoral site oozing; bleeding was controlled with manual pressure. Sepsis POA Right lung pneumonia Acute on chronic hypoxic respiratory failure History of COPD Patient presents to the hospital with shortness of breath, cough and weakness CT of the chest shows acute pneumonia of right lower lobe Respiratory viral panel negative Blood culture pending MRSA swab negative Continue on current antibiotics for now; will follow-up on blood culture. Continue airway clearance therapy and DuoNeb, hypertonic saline Abnormal CT abdomen findings CT abdomen pelvis showed long segment rectal inflammation suggestive of proctitis. Also reported to have nodular mesenteric soft tissue thickening of the rectum Evaluated by GI on 11/10/2023; patient reported that he would not want another colonoscopy. Denies dark stool, hematochezia. Acute kidney injury Likely secondary to sepsis Creatinine of 2 on admission with hypotension Improved with IV hydration Hold lisinopril and diuretics for the time being Right inguinal wound Patient had undergone cardiac cath through right femoral approach; has superficial wound Continue wound care Obtain wound care swab Antibiotic as above Recent history of NSTEMI status post RCA stent in [facility] Demand ischemia EKG on admission shows normal sinus rhythm with first-degree AV block and right bundle branch block; nonspecific T wave changes. High sensitive troponin elevated and down trended later Continue on aspirin, Brilinta, Lipitor and Coreg Echo shows EF of 55 to 60%; moderate size inferior and posterior wall abnormality with hypokinesis of the segments; no significant interval change compared to echo from 10/29/2024. Hyperlipidemiacontinue on Lipitor Hypertensioncontinue on Coreg, hold lisinopril Full code DVT prophylaxis Lovenox Time spent evaluating patient, direct bedside care, chart review, placing orders, interpretation of diagnostic studies, discussion with consultants, patient, and family members, as well as other required patient management activities is 50 minutes Please note the above document was generated using voice recognition software. It may contain grammatical, syntax or spelling errors. Any formal questions or concerns about the content, text or information contained within the body of this dictation should be directly addressed to the provider for clarification Admission and Anticipated Discharge Date Admission Date: November 09, 2024 Subjective Patient seen and examined at bedside. He is comfortable; not in distress. Denies shortness of breath cough or fever. No significant events overnight Review of Systems Review of Systems: All systems reviewed & are unremarkable except as noted in Subjective Physical Exam Physical Exam: Constitutional: WD/WN, vitals as above, NAD, sitting up in bed, pleasant, conversing easily Respiratory: Decreased breath sound on right lower base. Cardiovascular: RRR, no murmur, no edema Vessels: no JVD or carotid bruit Chest: normal inspection of chest Abdomen: normal bowel sounds, soft, nontender, no hepatosplenomegaly. Right inguinal region has small wound; no pus was expressed. Musculoskeletal: no cyanosis or clubbing, extremities motor strength 5/5 Skin: no rashes, warm and dry normal turgor Neurologic: PERRL, EOMI, accommodation nl, no face palsy, no dysarthria CN's II- XI intact bilaterally and moves all extremities Psychiatric: A+Ox3, euthymic affect Results & Data Results & Data Vital Signs (Past 12 Hours) Vital Signs Temp Pulse Pulse Resp BP BP Pulse Ox 11/10/24 07:46 77 18 97 11/10/24 07:17 36.4 C L 81 18 110/70 95 11/10/24 07:16 11/10/24 07:16 89 11/10/24 03:07 36.3 C L 97 H 19 107/69 93 11/10/24 01:45 11/10/24 01:30 18 11/10/24 01:18 91 H 11/10/24 01:01 36.8 C 97 H 24 111/62 95 11/09/24 23:45 99 H 30 H 87/62 L 96 11/09/24 23:01 96 H 32 H 102/58 L 95 11/09/24 23:00 91 H 22 95 11/09/24 22:55 91 H O2 Del Method O2 Flow Rate 11/10/24 07:46 Nasal Cannula 2 11/10/24 07:17 Nasal Cannula 2 11/10/24 07:16 Nasal Cannula 3 11/10/24 07:16 11/10/24 03:07 Nasal Cannula 3 11/10/24 01:45 Nasal Cannula 3 11/10/24 01:30 Nasal Cannula 3 11/10/24 01:18 11/10/24 01:01 Nasal Cannula 3 11/09/24 23:45 Nasal Cannula 3 11/09/24 23:01 Nasal Cannula 3 11/09/24 23:00 Nasal Cannula 3 11/09/24 22:55 (1) Sepsis Acute renal failure type: with other specified pathological lesion Sepsis acute organ dysfunction status: with acute organ dysfunction Sepsis type: sepsis due to unspecified organism Severe sepsis acute organ dysfunction type: acute renal failure Severe sepsis shock status: without septic shock Qualified Code(s): A41.9 - Sepsis, unspecified organism; R65.20 - Severe sepsis without septic shock; N17.8 - Other acute kidney failure (5) COPD (chronic obstructive pulmonary disease) COPD type: emphysema Emphysema type: centrilobular Qualified Code(s): J43.2 - Centrilobular emphysema
--- NOTE | 2024-11-10 10:44 | Pharmacy Report ---
Pharmacy PK ABX Note - Date of Service November 10, 2024 - Assessment and Plan Assessment 79 year old M receiving Vancomycin and Cefepime for empiric treatment of infection. * Day #1 of antimicrobial therapy. * Afebrile. Leukocytosis improve. Lactate and procal negative. SCr elevated upon admit at 2.05, improved to 1.19 this AM (baseline near 0.7). * Blood and sputum cultures pending. Respiratory biofire negative. MRSA swab negative and vanc was originally discontinued this AM but provider added back later this AM stating they would like some culture data as well as a better look at inguinal wound prior to stopping vanc. Plan Vancomycin * Loading dose: 1750 mg IV x 1 * Maintenance dose: 1000 mg IV every 12 hours * Regimen is predicted to achieve target AUC/WENDY of 400-600 mg/L.hr * No level will be ordered unless therapy extends beyond 48 hours Pharmacy will continue to follow and will adjust dose/frequency as necessary. Thank you. Pharmacy has transitioned to AUC monitoring for vancomycin. AUC/WENDY is the preferred PK/PD target and is associated with decreased risk of nephrotoxicity compared to traditional trough targets.
--- NOTE | 2024-11-10 10:50 | Gastrointestinal Consultation ---
Date of Consultation November 10, 2024 Assessment & Plan (1) Abnormal CT of the abdomen: Ct scan suggests irregularity to the rectal mucosa. Patient with minimal symptoms possibly related to that. If this were to be worked up it would be done at a later date as an outpatient as patient is just a week or so removed from NSTEMI. Patient, however, states he is not going to have another colonoscopy. Will sign off. Please reconsult if conditions warrant History of Present Illness Reason for Consultation: abnormal CT Attending Physician: Danielito Arauz MD History of Present Illness 79 year old man admitted to the hospital with dyspnea. He was in the hospital a little over a week ago with NSTEMI. On admit CT of the abdomen showed "proctitis" with nodular appearance to the rectum. Patient states he does have diarrhea but it only started today. He does not see blood in his stool. He has never seen blood. He does not usually have issues with his bowel movements. He had a colonoscopy "a long time ago" and says he will not have another one. Allergies Allergy/AdvReac Type Severity Reaction Status Date / Time No Known Allergies Allergy Verified 10/29/24 08:39 Home Medications Medication Instructions Recorded Confirmed Type albuterol sulfate 90 mcg/actuation 2 puff inhalation Q4H PRN 07/21/24 11/09/24 History aerosol inhaler cough,sob,wheezing aspirin 81 mg tablet,delayed 81 mg PO DAILY 07/21/24 11/09/24 History release atorvastatin 40 mg tablet 40 mg PO DAILY 07/21/24 11/09/24 History fluticasone fur. 100 mcg-umeclid 1 inh inhalation QAM 07/21/24 11/09/24 History 62.5 mcg-vilant 25 mcg inhalat.powder (Trelegy Ellipta) lisinopril 5 mg tablet 5 mg PO DAILY 07/21/24 11/09/24 History metformin 500 mg tablet 500 mg PO QAM 07/21/24 11/09/24 History nitroglycerin 0.4 mg sublingual 0.4 mg sublingual DIRECTED PRN 07/21/24 11/09/24 History tablet Chest Pain tiotropium bromide 2.5 2 puff inhalation DAILY 07/21/24 11/09/24 History mcg/actuation mist for inhalation (Spiriva Respimat) albuterol sulfate 2.5 mg/3 mL 2.5 mg (3 mL) inhalation Q4H PRN 07/23/24 11/09/24 Rx (0.083 %) solution for nebulization sob #360 mL dexlansoprazole 60 mg 60 mg PO DAILY 10/28/24 11/09/24 History capsule,biphase delayed release (Dexilant) roflumilast 500 mcg tablet 500 mcg PO DAILY 10/28/24 11/09/24 History (Daliresp) sertraline 25 mg tablet 25 mg PO DAILY 10/28/24 11/09/24 History sodium chloride 5 % eye drops 1 drp OPR QID 10/28/24 11/09/24 History torsemide 20 mg tablet 40 mg PO BID 10/28/24 11/09/24 History atorvastatin 80 mg tablet 80 mg PO DAILY 11/09/24 11/09/24 History carvedilol 6.25 mg tablet 6.25 mg PO DAILY 11/09/24 11/09/24 History ticagrelor 90 mg tablet (Brilinta) 90 mg PO DAILY 11/09/24 11/09/24 History Patient History Medical History Acute non-ST elevation myocardial infarction (NSTEMI) NSTEMI (non-ST elevated myocardial infarction) Stable angina Recent cerebrovascular accident (CVA) Stroke-like symptoms COPD exacerbation Left-sided chest pain Complicated UTI (urinary tract infection) Calculus of kidney Obesity (BMI 30.0-34.9) SANJAY (obstructive sleep apnea) Marijuana use Tobacco abuse Chronic hypoxic respiratory failure COPD (chronic obstructive pulmonary disease) T2DM (type 2 diabetes mellitus) CAD (coronary artery disease) HLD (hyperlipidemia) HTN (hypertension) Surgical History Hx of percutaneous left heart catheterization and 2 stents in 2007 LAD Hx laparoscopic cholecystectomy Hx of right heart catheterization 2 stents in 2005 1st and 2nd diagonal History of nasal surgery Hx of cataract extraction Hx of vasectomy Hx of tonsillectomy Family History Mother Osteoarthritis Coronary heart disease Hypertension Social History Smoking Status: Current every day smoker Tobacco Type: Cigarettes Second Hand Exposure: Yes; Do You Dip or Chew Tobacco: No; Tobacco Cessation Education Requested by Patient: No Hx Alcohol Use: No Hx Substance Use: Yes Last Used Substance: Hours (ago) Last Used Substance Other:: marijuana Preferred Language: French Communication Ability: Effective [employer] Required: No Beliefs That Will Affect Care: None Current Living Situation: Family Current Living Situation Comment: Lives with daughter and grad-daughter listed above Other Information That Helps Us Care for You: No Feels Safe at Home: Yes Safety Concerns: Feels Safe At This Time Assistive Devices: Cane, Glasses, Oxygen - Continuous and Walker Review of Systems Review of Systems: All systems reviewed & are unremarkable except as noted in HPI & below Physical Exam Constitutional: WD/WN, vitals as above Neck: trachea midline, no thyromegaly Respiratory: normal respiratory effort, lungs clear to auscultation Cardiovascular: RRR, no murmur, no edema Gastrointestinal (Abdomen): normal bowel sounds, soft, nontender, no hepatosplenomegaly Results & Data Vital Signs (Past 12 Hours) Vital Signs Temp Pulse Pulse Resp BP BP Pulse Ox 11/10/24 07:46 77 18 97 11/10/24 07:17 36.4 C L 81 18 110/70 95 11/10/24 07:16 11/10/24 07:16 89 11/10/24 03:07 36.3 C L 97 H 19 107/69 93 11/10/24 01:45 11/10/24 01:30 18 11/10/24 01:18 91 H 11/10/24 01:01 36.8 C 97 H 24 111/62 95 11/09/24 23:45 99 H 30 H 87/62 L 96 11/09/24 23:01 96 H 32 H 102/58 L 95 11/09/24 23:00 91 H 22 95 11/09/24 22:55 91 H O2 Del Method O2 Flow Rate 11/10/24 07:46 Nasal Cannula 2 11/10/24 07:17 Nasal Cannula 2 11/10/24 07:16 Nasal Cannula 3 11/10/24 07:16 11/10/24 03:07 Nasal Cannula 3 11/10/24 01:45 Nasal Cannula 3 11/10/24 01:30 Nasal Cannula 3 11/10/24 01:18 11/10/24 01:01 Nasal Cannula 3 11/09/24 23:45 Nasal Cannula 3 11/09/24 23:01 Nasal Cannula 3 11/09/24 23:00 Nasal Cannula 3 11/09/24 22:55 Laboratory Results 11/10/24 11/09/24 11/09/24 Range/Units 05:37 20:53 19:50 WBC 10.41 (4.8-10.8) K/ul RBC 3.98 L (4.70-6.10) M/uL Hgb 11.6 L (14.0-18.0) g/dl POC Hgb (14.0-18.0) g/dl Hct 34.6 L (42.0-52.0) % POC Hct (42-52) % MCV 86.9 (80.0-100.0) fL MCH 29.1 (25.0-34.0) pg MCHC 33.5 (32.0-36.0) g/dL RDW Std Deviation 40.1 (36.4-46.3) fL RDW Coeff of Aileen 12.7 (11.5-14.5) % Plt Count 217 (130-400) K/uL MPV 11.3 (9.4-12.4) fL Immature Gran % (Auto) % Neut % (Auto) % Lymph % (Auto) % Titus % (Auto) % Eos % (Auto) % Baso % (Auto) % Neut # (Auto) (1.40-6.50) K/uL Lymph # (Auto) (1.20-3.40) K/uL Titus # (Auto) (0.11-0.59) K/uL Eos # (Auto) (0.00-0.50) K/uL Baso # (Auto) (0.00-0.20) K/uL Immature Gran # (Auto) (0.01-0.20) K/uL POC Sodium (135-144) mmol/L Sodium 137 (136-145) mmol/L POC Potassium (3.3-5.0) mmol/L Potassium 3.8 (3.5-5.1) mmol/L POC Chloride (101-112) mmol/L Chloride 103 (98-107) mmol/L Carbon Dioxide 26 (21-32) mmol/L POC Total CO2 (24-31) mmol/L Anion Gap 8 (3-11) POC Anion Gap (16-25) mmol/L POC BUN (7-18) mg/dl BUN 43 H (6-23) mg/dl Creatinine 1.19 D (0.6-1.4) mg/dl POC Creatinine (0.6-1.3) mg/dl Est Cr Clr Drug Dosing 61.8 eGFR 62.91 BUN/Creatinine Ratio 36.1 H (10-20) Glucose 181 H (70-99(Fasting)) mg/dl POC Glucose (other) (70-99) mg/dl Lactate (0.4-2.0) mmol/L Calcium 8.5 L (8.6-10.3) mg/dl POC Ioniz Calcium Janki (1.12-1.32) mmol/l Magnesium 1.6 L (1.7-2.4) mg/dl Total Bilirubin (0.2-1.0) mg/dl AST (13-39) U/L ALT (7-52) U/L Alkaline Phosphatase (34-104) U/L Troponin I High Sens 24.9 H D (0-20) pg/ml B-Natriuretic Peptide (0-100) pg/ml Total Protein (6.0-8.3) gm/dl Albumin (3.4-5.0) gm/dl Globulin (2.5-4.0) gm/dl Albumin/Globulin Ratio (0.9-2) Lipase (11-82) U/L Procalcitonin (0-0.5) ng/ml Nasal Screen MRSA (PCR) Negative (Negative) Random Vancomycin 9.6 L (10-20) mcg/ml Adenovirus (PCR) (NotDetected) B. pertussis DNA (PCR) (NotDetected) B.parapertussis DNA PCR (NotDetected) C. pneumoniae DNA (PCR) (NotDetected) Coronavirus OC43 (PCR) (NotDetected) Coronavirus HKU1 (PCR) (NotDetected) Coronavirus 229E (PCR) (NotDetected) SARS-CoV-2 (PCR) (NotDetected) Coronavirus NL63 (PCR) (NotDetected) Human Metapneumovir PCR (NotDetected) Influenza Type A (PCR) (NotDetected) Influenza Type B (PCR) (NotDetected) M. pneumoniae (PCR) (NotDetected) Parainfluenza 1 (PCR) (NotDetected) Parainfluenza 2 (PCR) (NotDetected) Parainfluenza 3 (PCR) (NotDetected) Parainfluenza 4 (PCR) (NotDetected) RSV (PCR) (NotDetected) Entero/Rhino (PCR) (NotDetected) 11/09/24 11/09/24 11/09/24 Range/Units 18:57 15:52 15:45 WBC 13.16 H (4.8-10.8) K/ul RBC 4.64 L (4.70-6.10) M/uL Hgb 13.7 L (14.0-18.0) g/dl POC Hgb 13.6 L (14.0-18.0) g/dl Hct 40.0 L (42.0-52.0) % POC Hct 40 L (42-52) % MCV 86.2 (80.0-100.0) fL MCH 29.5 (25.0-34.0) pg MCHC 34.3 (32.0-36.0) g/dL RDW Std Deviation 39.9 (36.4-46.3) fL RDW Coeff of Aileen 12.7 (11.5-14.5) % Plt Count 238 (130-400) K/uL MPV 11.2 (9.4-12.4) fL Immature Gran % (Auto) 0.5 % Neut % (Auto) 80.8 % Lymph % (Auto) 8.6 % Titus % (Auto) 9.2 % Eos % (Auto) 0.5 % Baso % (Auto) 0.4 % Neut # (Auto) 10.65 H (1.40-6.50) K/uL Lymph # (Auto) 1.13 L (1.20-3.40) K/uL Titus # (Auto) 1.21 H (0.11-0.59) K/uL Eos # (Auto) 0.06 (0.00-0.50) K/uL Baso # (Auto) 0.05 (0.00-0.20) K/uL Immature Gran # (Auto) 0.06 (0.01-0.20) K/uL POC Sodium 137 (135-144) mmol/L Sodium 137 (136-145) mmol/L POC Potassium 3.1 L (3.3-5.0) mmol/L Potassium 3.2 L (3.5-5.1) mmol/L POC Chloride 95 L (101-112) mmol/L Chloride 94 L (98-107) mmol/L Carbon Dioxide 32 (21-32) mmol/L POC Total CO2 30 (24-31) mmol/L Anion Gap 11 (3-11) POC Anion Gap 16.0 (16-25) mmol/L POC BUN 42 H (7-18) mg/dl BUN 47 H (6-23) mg/dl Creatinine 2.05 H (0.6-1.4) mg/dl POC Creatinine 2.2 H (0.6-1.3) mg/dl Est Cr Clr Drug Dosing Not Reportable eGFR 32.76 BUN/Creatinine Ratio 22.9 H (10-20) Glucose 136 H (70-99(Fasting)) mg/dl POC Glucose (other) 135 H (70-99) mg/dl Lactate 1.6 (0.4-2.0) mmol/L Calcium 9.4 (8.6-10.3) mg/dl POC Ioniz Calcium Janki 1.07 L (1.12-1.32) mmol/l Magnesium (1.7-2.4) mg/dl Total Bilirubin 1.2 H (0.2-1.0) mg/dl AST 16 (13-39) U/L ALT 12 (7-52) U/L Alkaline Phosphatase 107 H (34-104) U/L Troponin I High Sens 39.9 H 48.8 H (0-20) pg/ml B-Natriuretic Peptide 40 (0-100) pg/ml Total Protein 7.4 (6.0-8.3) gm/dl Albumin 3.9 (3.4-5.0) gm/dl Globulin 3.5 (2.5-4.0) gm/dl Albumin/Globulin Ratio 1.1 (0.9-2) Lipase 34 (11-82) U/L Procalcitonin 0.08 (0-0.5) ng/ml Nasal Screen MRSA (PCR) (Negative) Random Vancomycin (10-20) mcg/ml Adenovirus (PCR) Not Detected (NotDetected) B. pertussis DNA (PCR) Not Detected (NotDetected) B.parapertussis DNA PCR Not Detected (NotDetected) C. pneumoniae DNA (PCR) Not Detected (NotDetected) Coronavirus OC43 (PCR) Not Detected (NotDetected) Coronavirus HKU1 (PCR) Not Detected (NotDetected) Coronavirus 229E (PCR) Not Detected (NotDetected) SARS-CoV-2 (PCR) Not Detected (NotDetected) Coronavirus NL63 (PCR) Not Detected (NotDetected) Human Metapneumovir PCR Not Detected (NotDetected) Influenza Type A (PCR) Not Detected (NotDetected) Influenza Type B (PCR) Not Detected (NotDetected) M. pneumoniae (PCR) Not Detected (NotDetected) Parainfluenza 1 (PCR) Not Detected (NotDetected) Parainfluenza 2 (PCR) Not Detected (NotDetected) Parainfluenza 3 (PCR) Not Detected (NotDetected) Parainfluenza 4 (PCR) Not Detected (NotDetected) RSV (PCR) Not Detected (NotDetected) Entero/Rhino (PCR) Not Detected (NotDetected) Diagnostic Findings Chest X-Ray 11/09/24 15:47 EXAM: XR chest 1V portable CLINICAL HISTORY: Chest Pain. TECHNIQUE: An X-ray image of the chest is obtained in AP projection. COMPARISON: prior 10/28/2024. FINDINGS: Pulmonary Parenchyma: Bilateral increased broncho vascular markings likely of congestive process. No evidence of consolidation, or collapse. Right-sided peripheral lower lung opacity parallel to chest wall likely mild pleural effusion. Veiling opacity over the left lung. Heart and Mediastinum: Heart size and shape are normal. No mediastinal widening or masses. No hilar or mediastinal lymphadenopathy. Bony Thorax: Right-sided angulation of lower ribs may be sequelae of previous trauma. Soft Tissues: Soft tissues overlying the chest wall are unremarkable. IMPRESSION: 1. Bilateral increased broncho vascular markings likely of the congestive process.(stable) 2. Right-sided possible mild pleural effusion. (newly developed) 3. Right-sided angulation of lower ribs may be sequelae of previous trauma. (stable) Electronically signed by Vandana Miller 11-09-2024 4:39 PM Abdomen/Pelvis CT 11/09/24 17:30 CT CHEST ABDOMEN and PELVIS WITHOUT CONTRAST INDICATION: PAIN TECHNIQUE: CT of chest, abdomen and pelvis was obtained without intravenous contrast. IV CONTRAST: None Enteric contrast: Not Given COMPARISON: None FINDINGS: LOWER NECK: Normal thyroid. LYMPH NODES: A few small nonenlarged lymph nodes in the mediastinum. No lymphadenopathy by size criteria. CARDIOVASCULAR: Cardiac size is enlarged. Coronary artery calcifications are noted. No aortic aneurysm. LUNGS: The trachea and central bronchi are widely patent. Acute infiltrate noted in the right lower lobe of the lung. Peribronchial cuffing. There are scattered pulm nodular densities measuring up to 4 mm,for example left upper lobe (series 2, image 29). PLEURA: There are no pleural effusions. There is no pneumothorax. LIVER: No focal lesion identified on this noncontrast CT. GALLBLADDER/BILIARY: Surgically absent gallbladder. No abnormal biliary dilatation. SPLEEN: Unremarkable. PANCREAS: Unremarkable. ADRENALS: Unremarkable. KIDNEYS: Bilateral calcific densities over the renal parenchyma measuring up to 9 mm may represent combination of dystrophic parenchymal calcifications and nonobstructing renal calculi. PERITONEUM/RETROPERITONEUM. No lymphadenopathy by size criteria. Mild aneurysmal change of the abdominal aorta measuring up to 2.4 cm. Extensive atherosclerosis of the abdominal aorta with multifocal stenoses of the celiac trunk, the SMA and KINA. GASTROINTESTINAL: No obstruction. Extensive colonic diverticulosis over the sigmoid colon. There is rectal wall thickening with inflammatory changes in the perirectal space. Appendix is normal. REPRODUCTIVE: Mild prostamegaly ABDOMINAL WALL: There is a moderate-sized anterior abdominal wall hernia defect containing a segment of the transverse colon without evidence of obstruction. BONES: No acute findings. Chronic appearing right-sided rib cage deformities IMPRESSION: Acute pneumonia of the right lower lobe. Infectious/inflammatory bronchiolitis. Cardiomegaly, extensive coronary calcifications. Scattered pulmonary nodular densities measuring to 4 mm may represent infectious/inflammatory nodules or neoplastic nodules. Long segment rectal inflammation suggesting proctitis. Nodular and eccentric soft tissue thickening of the rectum may represent processes such as hemorrhoid however when clinically able, recommend direct inspection to exclude more worrisome process such as neoplasm. Electronically signed by Adama Donovan 11-09-2024 6:[address] 11/09/24 17:30 CT CHEST ABDOMEN and PELVIS WITHOUT CONTRAST INDICATION: PAIN TECHNIQUE: CT of chest, abdomen and pelvis was obtained without intravenous contrast. IV CONTRAST: None Enteric contrast: Not Given COMPARISON: None FINDINGS: LOWER NECK: Normal thyroid. LYMPH NODES: A few small nonenlarged lymph nodes in the mediastinum. No lymphadenopathy by size criteria. CARDIOVASCULAR: Cardiac size is enlarged. Coronary artery calcifications are noted. No aortic aneurysm. LUNGS: The trachea and central bronchi are widely patent. Acute infiltrate noted in the right lower lobe of the lung. Peribronchial cuffing. There are scattered pulm nodular densities measuring up to 4 mm,for example left upper lobe (series 2, image 29). PLEURA: There are no pleural effusions. There is no pneumothorax. LIVER: No focal lesion identified on this noncontrast CT. GALLBLADDER/BILIARY: Surgically absent gallbladder. No abnormal biliary dilatation. SPLEEN: Unremarkable. PANCREAS: Unremarkable. ADRENALS: Unremarkable. KIDNEYS: Bilateral calcific densities over the renal parenchyma measuring up to 9 mm may represent combination of dystrophic parenchymal calcifications and nonobstructing renal calculi. PERITONEUM/RETROPERITONEUM. No lymphadenopathy by size criteria. Mild aneurysmal change of the abdominal aorta measuring up to 2.4 cm. Extensive atherosclerosis of the abdominal aorta with multifocal stenoses of the celiac trunk, the SMA and KINA. GASTROINTESTINAL: No obstruction. Extensive colonic diverticulosis over the sigmoid colon. There is rectal wall thickening with inflammatory changes in the perirectal space. Appendix is normal. REPRODUCTIVE: Mild prostamegaly ABDOMINAL WALL: There is a moderate-sized anterior abdominal wall hernia defect containing a segment of the transverse colon without evidence of obstruction. BONES: No acute findings. Chronic appearing right-sided rib cage deformities
[2024-11-10] MEDS: VANCOMYCIN HCL 1,000 MG in SODIUM CHLORIDE 0.9% 250 ML IV SCH (11:24)
[2024-11-10] MEDS: MUPIROCIN 2% OINT 22 GM TUBE EXT SCH (11:35)
[2024-11-10] MEDS: SODIUM CHLORIDE 5% OP SOLN 15 ML BTL OPR SCH (17:32)
[2024-11-10] MEDS: SODIUM CHLOR 7% 4 ML NEB NEB SCH (20:07)
[2024-11-11 08:05] LABS: Basophils # (auto) 0.06 K/uL (0.00-0.20); Basophils % (auto) 0.6 %; Eosinophils # (auto) 0.07 K/uL (0.00-0.50); Eosinophils % (auto) 0.7 %; Immature Granulocytes # (auto) 0.04 K/uL (0.01-0.20); Immature Granulocytes % (auto) 0.4 %; Lymphocytes # (auto) 1.15 K/uL (1.20-3.40); Lymphocytes % (auto) 12.2 %; Mean Corpuscular Hemoglobin 29.8 pg (25.0-34.0); Mean Corpuscular Hgb Conc 34.4 g/dL (32.0-36.0); Mean Corpuscular Volume 86.7 fL (80.0-100.0); Mean Platelet Volume 10.9 fL (9.4-12.4); Monocytes # (auto) 0.76 K/uL (0.11-0.59); Monocytes % (auto) 8.1 %; Neutrophils # (auto) 7.32 K/uL (1.40-6.50); Platelet Count 182 K/uL (130-400); RDW Coefficient of Variation 12.8 % (11.5-14.5); RDW Standard Deviation 40.2 fL (36.4-46.3); Red Blood Count 3.69 M/uL (4.70-6.10)
[2024-11-11 08:35] LABS: BUN Creatinine Ratio 29.4 (10-20); Calcium 8.5 mg/dl (8.6-10.3); Creatinine Clr Calc Pharmacy 87.3 ml/min; Potassium 3.6 mmol/L (3.5-5.1)
--- NOTE | 2024-11-11 13:26 | Hospitalist Progress Note ---
Date of Service November 11, 2024 Assessment & Plan (1) Sepsis: (2) Acute on chronic hypoxic respiratory failure: (3) HAP (hospital-acquired pneumonia): (4) ASCVD (arteriosclerotic cardiovascular disease): (5) COPD (chronic obstructive pulmonary disease): (6) Wound infection following procedure: (7) Dyslipidemia, goal LDL below 70: (8) HTN, goal below 130/80: (9) Demand ischemia of myocardium: Plan Patient is a 79-year-old male with past medical history of respiratory failure on chronic oxygen therapy 3L, SANJAY, COPD, Right heart failure, CAD with hx of angioplasty and total of 4 stents, HTN, HLD, Chronic RBBB, tobacco abuse, hx of cva presented to the hospital with shortness of breath and weakness. Patient was recently hospitalized at [facility] with NSTEMI on 10/29 and was transferred to [facility] for cardiac cath. Patient underwent IVUS guided PCI and Rota atherectomy without complication on 10/31/2024; found to have right femoral site oozing; bleeding was controlled with manual pressure. Sepsis POA Right lung pneumonia Acute on chronic hypoxic respiratory failure History of COPD Patient presents to the hospital with shortness of breath, cough and weakness CT of the chest shows acute pneumonia of right lower lobe Respiratory viral panel negative Blood culture - NGTD MRSA swab negative Continue on cefepime; discontinue vancomycin. Continue airway clearance therapy and DuoNeb, hypertonic saline Abnormal CT abdomen findings CT abdomen pelvis showed long segment rectal inflammation suggestive of proctitis. Also reported to have nodular mesenteric soft tissue thickening of the rectum Evaluated by GI on 11/10/2023; patient reported that he would not want another colonoscopy. Denies dark stool, hematochezia. Acute kidney injury Likely secondary to sepsis Creatinine of 2 on admission with hypotension Improved with IV hydration Hold lisinopril and diuretics for the time being Right inguinal wound Patient had undergone cardiac cath through right femoral approach; has superficial incisional wound, no pus continue wound care. Recent history of NSTEMI status post RCA stent in [facility] Demand ischemia EKG on admission shows normal sinus rhythm with first-degree AV block and right bundle branch block; nonspecific T wave changes. High sensitive troponin elevated and down trended later Continue on aspirin, Brilinta, Lipitor and Coreg Echo shows EF of 55 to 60%; moderate size inferior and posterior wall abnormality with hypokinesis of the segments; no significant interval change compared to echo from 10/29/2024. Hyperlipidemiacontinue on Lipitor Hypertensioncontinue on Coreg, hold lisinopril Full code DVT prophylaxis Lovenox Time spent evaluating patient, direct bedside care, chart review, placing orders, interpretation of diagnostic studies, discussion with consultants, patient, and family members, as well as other required patient management activities is 50 minutes Please note the above document was generated using voice recognition software. It may contain grammatical, syntax or spelling errors. Any formal questions or concerns about the content, text or information contained within the body of this dictation should be directly addressed to the provider for clarification Admission and Anticipated Discharge Date Admission Date: November 09, 2024 Subjective Patient seen and examined at bedside. He reports that he is feeling much better compared to previous days He reports that his shortness of breath has improved Vital signs also remained stable Saturating well at baseline oxygen requirement Review of Systems Review of Systems: All systems reviewed & are unremarkable except as noted in Subjective Physical Exam Physical Exam: Constitutional: WD/WN, vitals as above, NAD, sitting up in bed, pleasant, conversing easily Respiratory: Decreased breath sound on right lower base. Cardiovascular: RRR, no murmur, no edema Vessels: no JVD or carotid bruit Chest: normal inspection of chest Abdomen: normal bowel sounds, soft, nontender, no hepatosplenomegaly. Right inguinal region has small wound; no pus was expressed. Musculoskeletal: no cyanosis or clubbing, extremities motor strength 5/5 Skin: no rashes, warm and dry normal turgor Neurologic: PERRL, EOMI, accommodation nl, no face palsy, no dysarthria CN's II- XI intact bilaterally and moves all extremities Psychiatric: A+Ox3, euthymic affect Results & Data Results & Data Vital Signs (Past 12 Hours) Vital Signs Temp Pulse Pulse Resp BP Pulse Ox O2 Del Method 11/11/24 11:52 102 H 18 98 Nasal Cannula 11/11/24 10:49 36.3 C L 84 18 120/73 95 Room Air 11/11/24 08:00 Nasal Cannula 11/11/24 07:24 36.5 C 81 17 134/83 95 Nasal Cannula 11/11/24 07:00 86 11/11/24 04:21 36.4 C L 72 18 117/79 96 Nasal Cannula 11/11/24 01:51 76 18 97 Nasal Cannula O2 Flow Rate 11/11/24 11:52 3 11/11/24 10:49 11/11/24 08:00 11/11/24 07:24 2 11/11/24 07:00 11/11/24 04:21 2 11/11/24 01:51 3 (1) Sepsis Sepsis type: sepsis due to unspecified organism Sepsis acute organ dysfunction status: with acute organ dysfunction Severe sepsis acute organ dysfunction type: acute renal failure Acute renal failure type: with other specified pathological lesion Severe sepsis shock status: without septic shock Qualified Code(s): A41.9 - Sepsis, unspecified organism; R65.20 - Severe sepsis without septic shock; N17.8 - Other acute kidney failure (5) COPD (chronic obstructive pulmonary disease) COPD type: emphysema Emphysema type: centrilobular Qualified Code(s): J43.2 - Centrilobular emphysema
--- NOTE | 2024-11-11 16:16 | Electrocardiogram Report ---
Test Reason : Blood Pressure : */* mmHG Vent. Rate : 82 BPM Atrial Rate : 82 BPM P-R Int : 216 ms QRS Dur : 144 ms QT Int : 426 ms P-R-T Axes : 60 -68 35 degrees QTcB Int : 497 ms Sinus rhythm with 1st degree A-V block Right bundle branch block Left anterior fascicular block Bifascicular block Anterior infarct (cited on or before 28-Oct-2024) When compared with ECG of 29-Oct-2024 07:05, Criteria for Inferior infarct are no longer Present Nonspecific T wave abnormality has replaced inverted T waves in Inferior leads Confirmed by Darci Diallo ([id number]) on 11/11/2024 4:16:05 PM Referred By: Confirmed By: Darci Diallo
[2024-11-12 06:45] LABS: Basophils # (auto) 0.05 K/uL (0.00-0.20); Basophils % (auto) 0.7 %; Eosinophils # (auto) 0.14 K/uL (0.00-0.50); Hematocrit (blood only) 33.2 % (42.0-52.0); Hemoglobin 11.3 g/dl (14.0-18.0); Immature Granulocytes # (auto) 0.04 K/uL (0.01-0.20); Immature Granulocytes % (auto) 0.6 %; Lymphocytes # (auto) 1.32 K/uL (1.20-3.40); Lymphocytes % (auto) 18.6 %; Mean Corpuscular Hemoglobin 29.4 pg (25.0-34.0); Mean Corpuscular Volume 86.2 fL (80.0-100.0); Mean Platelet Volume 11.2 fL (9.4-12.4); Monocytes # (auto) 0.68 K/uL (0.11-0.59); Monocytes % (auto) 9.6 %; Neutrophils # (auto) 4.86 K/uL (1.40-6.50); Neutrophils % (auto) 68.5 %; Platelet Count 190 K/uL (130-400); RDW Coefficient of Variation 12.7 % (11.5-14.5); Red Blood Count 3.85 M/uL (4.70-6.10); White Blood Count 7.09 K/ul (4.8-10.8)
[2024-11-12 06:56] LABS: Calcium 8.7 mg/dl (8.6-10.3); Creatinine Clr Calc Pharmacy 98.8 ml/min; Potassium 4.1 mmol/L (3.5-5.1)
--- NOTE | 2024-11-12 10:44 | Hospitalist Progress Note ---
Date of Service November 12, 2024 Assessment & Plan (1) Sepsis: (2) Acute on chronic hypoxic respiratory failure: (3) HAP (hospital-acquired pneumonia): (4) ASCVD (arteriosclerotic cardiovascular disease): (5) COPD (chronic obstructive pulmonary disease): (6) Wound infection following procedure: (7) Dyslipidemia, goal LDL below 70: (8) HTN, goal below 130/80: (9) Demand ischemia of myocardium: Plan Patient is a 79-year-old male with past medical history of respiratory failure on chronic oxygen therapy 3L, SANJAY, COPD, Right heart failure, CAD with hx of angioplasty and total of 4 stents, HTN, HLD, Chronic RBBB, tobacco abuse, hx of cva presented to the hospital with shortness of breath and weakness. Patient was recently hospitalized at [facility] with NSTEMI on 10/29 and was transferred to [facility] for cardiac cath. Patient underwent IVUS guided PCI and Rota atherectomy without complication on 10/31/2024; found to have right femoral site oozing; bleeding was controlled with manual pressure. Sepsis POA Right lung pneumonia Acute on chronic hypoxic respiratory failure History of COPD Patient presents to the hospital with shortness of breath, cough and weakness CT of the chest shows pneumonia of right lower lobe Respiratory viral panel negative Blood culture - NGTD MRSA swab negative Cefpime changed to zosyn given wound care results; Plan to treat for 7 days. Will switch to oral at the time of the discharge; possibly augmentin. Continue airway clearance therapy and DuoNeb, hypertonic saline Abnormal CT abdomen findings CT abdomen pelvis showed long segment rectal inflammation suggestive of p roctitis. Also reported to have nodular mesenteric soft tissue thickening of the rectum Evaluated by GI on 11/10/2023; patient reported that he would not want another colonoscopy. Denies dark stool, hematochezia. Acute kidney injury Likely secondary to sepsis Creatinine of 2 on admission with hypotension Improved with IV hydration Lisinopril and diuretic resumed on 11/12/2023 Right inguinal wound Patient had undergone cardiac cath through right femoral approach; has superficial incisional wound, no pus Cx growing Prevotella bivia; no sensitivity but is covered by zosyn/augmentin continue wound care. Recent history of NSTEMI status post RCA stent in [facility] Demand ischemia EKG on admission shows normal sinus rhythm with first-degree AV block and right bundle branch block; nonspecific T wave changes. High sensitive troponin elevated and down trended later Continue on aspirin, Brilinta, Lipitor and Coreg Echo shows EF of 55 to 60%; moderate size inferior and posterior wall abnormality with hypokinesis of the segments; no significant interval change compared to echo from 10/29/2024. Hyperlipidemiacontinue on Lipitor Hypertensioncontinue on Coreg, hold lisinopril Full code DVT prophylaxis Lovenox Disposition- PT/OT eval is pending. patient prefers going home. Time spent evaluating patient, direct bedside care, chart review, placing orders, interpretation of diagnostic studies, discussion with consultants, patient, and family members, as well as other required patient management activities is 50 minutes Please note the above document was generated using voice recognition software. It may contain grammatical, syntax or spelling errors. Any formal questions or concerns about the content, text or information contained within the body of this dictation should be directly addressed to the provider for clarification Admission and Anticipated Discharge Date Admission Date: November 09, 2024 Subjective Patient seen and examined at bedside. Comfortable; not in distress. Denies fever, chills, chest pain, shortness of breath, abdominal pain or urinary symptoms. No significant overnight events Review of Systems Review of Systems: All systems reviewed & are unremarkable except as noted in Subjective Physical Exam Physical Exam: Constitutional: WD/WN, vitals as above, NAD, sitting up in bed, pleasant, conversing easily Respiratory: Decreased breath sound on right lower base. Cardiovascular: RRR, no murmur, no edema Vessels: no JVD or carotid bruit Chest: normal inspection of chest Abdomen: normal bowel sounds, soft, nontender, no hepatosplenomegaly. Right inguinal region has small wound; no pus was expressed. Musculoskeletal: no cyanosis or clubbing, extremities motor strength 5/5 Skin: no rashes, warm and dry normal turgor Neurologic: PERRL, EOMI, accommodation nl, no face palsy, no dysarthria CN's II- XI intact bilaterally and moves all extremities Psychiatric: A+Ox3, euthymic affect Results & Data Results & Data Vital Signs (Past 12 Hours) Vital Signs Temp Pulse Pulse Resp BP Pulse Ox O2 Del Method 11/12/24 07:36 70 19 97 Nasal Cannula 11/12/24 07:15 36.5 C 77 18 152/88 H 95 Nasal Cannula 11/12/24 07:00 88 11/12/24 02:57 37 C 78 18 136/78 94 Nasal Cannula O2 Flow Rate 11/12/24 07:36 3 11/12/24 07:15 3 11/12/24 07:00 11/12/24 02:57 (1) Sepsis Acute renal failure type: with other specified pathological lesion Sepsis acute organ dysfunction status: with acute organ dysfunction Sepsis type: sepsis due to unspecified organism Severe sepsis acute organ dysfunction type: acute renal failure Severe sepsis shock status: without septic shock Qualified Code(s): A41.9 - Sepsis, unspecified organism; R65.20 - Severe sepsis without septic shock; N17.8 - Other acute kidney failure (5) COPD (chronic obstructive pulmonary disease) COPD type: emphysema Emphysema type: centrilobular Qualified Code(s): J43.2 - Centrilobular emphysema
[2024-11-12] MEDS: lisinopril 5 MG TAB PO SCH (12:35)
[2024-11-12] MEDS: 4.5GM X1 IV STA (14:51)
[2024-11-12] MEDS: TORSEMIDE 20 MG TAB PO SCH (14:51)
[2024-11-12] MEDS: 4.5GM EXT INFUSION IV SCH (19:22)
[2024-11-13 06:17] LABS: Basophils # (auto) 0.04 K/uL (0.00-0.20); Basophils % (auto) 0.6 %; Eosinophils # (auto) 0.16 K/uL (0.00-0.50); Eosinophils % (auto) 2.3 %; Hematocrit (blood only) 31.8 % (42.0-52.0); Hemoglobin 10.9 g/dl (14.0-18.0); Immature Granulocytes # (auto) 0.03 K/uL (0.01-0.20); Immature Granulocytes % (auto) 0.4 %; Lymphocytes # (auto) 1.32 K/uL (1.20-3.40); Lymphocytes % (auto) 18.9 %; Mean Corpuscular Hemoglobin 29.6 pg (25.0-34.0); Mean Corpuscular Hgb Conc 34.3 g/dL (32.0-36.0); Mean Corpuscular Volume 86.4 fL (80.0-100.0); Mean Platelet Volume 10.9 fL (9.4-12.4); Monocytes # (auto) 0.66 K/uL (0.11-0.59); Monocytes % (auto) 9.4 %; Neutrophils # (auto) 4.79 K/uL (1.40-6.50); Neutrophils % (auto) 68.4 %; Platelet Count 168 K/uL (130-400); RDW Coefficient of Variation 12.7 % (11.5-14.5); RDW Standard Deviation 40.2 fL (36.4-46.3); Red Blood Count 3.68 M/uL (4.70-6.10)
[2024-11-13 06:40] LABS: BUN Creatinine Ratio 15.6 (10-20); Calcium 8.3 mg/dl (8.6-10.3); Creatinine Clr Calc Pharmacy 96.4 ml/min; Potassium 3.8 mmol/L (3.5-5.1)
--- NOTE | 2024-11-13 16:57 | Hospitalist Progress Note ---
Date of Service November 13, 2024 Assessment & Plan (1) Sepsis: (2) Acute on chronic hypoxic respiratory failure: (3) HAP (hospital-acquired pneumonia): (4) ASCVD (arteriosclerotic cardiovascular disease): (5) COPD (chronic obstructive pulmonary disease): (6) Wound infection following procedure: (7) Dyslipidemia, goal LDL below 70: (8) HTN, goal below 130/80: (9) Demand ischemia of myocardium: Plan Patient is a 79-year-old male with past medical history of respiratory failure on chronic oxygen therapy 3L, SANJAY, COPD, Right heart failure, CAD with hx of angioplasty and total of 4 stents, HTN, HLD, Chronic RBBB, tobacco abuse, hx of cva presented to the hospital with shortness of breath and weakness. Patient was recently hospitalized at [facility] with NSTEMI on 10/29 and was transferred to [facility] [place]. Patient underwent IVUS guided PCI and Rota atherectomy without complication on 10/31/2024; found to have right femoral site oozing; bleeding was controlled with manual pressure. Sepsis POA Right lung pneumonia Acute on chronic hypoxic respiratory failure History of COPD Patient presents to the hospital with shortness of breath, cough and weakness CT of the chest shows pneumonia of right lower lobe Respiratory viral panel negative Blood culture - NGTD MRSA swab negative Cefpime changed to zosyn given wound care results; Plan to treat for 7 days. Will switch to oral at the time of the discharge; possibly augmentin. Continue airway clearance therapy and DuoNeb, hypertonic saline Abnormal CT abdomen findings CT abdomen pelvis showed long segment rectal inflammation suggestive of p roctitis. Also reported to have nodular mesenteric soft tissue thickening of the rectum Evaluated by GI on 11/10/2023; patient reported that he would not want another colonoscopy. Denies dark stool, hematochezia. Acute kidney injury Likely secondary to sepsis Creatinine of 2 on admission with hypotension Improved with IV hydration Lisinopril and diuretic resumed on 11/12/2023 Right inguinal wound Patient had undergone cardiac cath through right femoral approach; has superficial incisional wound, no pus Cx growing Prevotella bivia; no sensitivity but is covered by zosyn/augmentin continue wound care. Recent history of NSTEMI status post RCA stent in [facility] Demand ischemia EKG on admission shows normal sinus rhythm with first-degree AV block and right bundle branch block; nonspecific T wave changes. High sensitive troponin elevated and down trended later Continue on aspirin, Brilinta, Lipitor and Coreg Echo shows EF of 55 to 60%; moderate size inferior and posterior wall abnormality with hypokinesis of the segments; no significant interval change compared to echo from 10/29/2024. Hyperlipidemiacontinue on Lipitor Hypertensioncontinue on Coreg, hold lisinopril Full code DVT prophylaxis Lovenox Disposition- PT/OT eval . patient prefers going home. likely dc in next 1-2 day Admission and Anticipated Discharge Date Admission Date: November 09, 2024 Subjective Patient seen and examined at bedside. Comfortable; not in distress. Denies fever, chills, chest pain, abdominal pain or urinary symptoms. Reports improvement in shortness of breath and cough. No significant overnight events Physical Exam Physical Exam: Constitutional: WD/WN, vitals as above, NAD, sitting up in bed, pleasant, conversing easily Respiratory: Decreased breath sound on right lower base. Cardiovascular: RRR, no murmur, no edema Vessels: no JVD or carotid bruit Chest: normal inspection of chest Abdomen: normal bowel sounds, soft, nontender, no hepatosplenomegaly. Right inguinal region has small wound; no pus was expressed. Musculoskeletal: no cyanosis or clubbing, extremities motor strength 5/5 Skin: no rashes, warm and dry normal turgor Neurologic: PERRL, EOMI, accommodation nl, no face palsy, no dysarthria CN's II- XI intact bilaterally and moves all extremities Psychiatric: A+Ox3, euthymic affect Results & Data Results & Data Vital Signs (Past 12 Hours) Vital Signs Temp Pulse Pulse Resp BP Pulse Ox O2 Del Method 11/13/24 15:13 36.9 C 101 H 19 104/69 94 Nasal Cannula 11/13/24 14:47 104 H 11/13/24 13:09 103 H 18 95 Nasal Cannula 11/13/24 11:12 36.3 C L 84 19 102/65 98 Nasal Cannula 11/13/24 10:21 Nasal Cannula 11/13/24 07:30 36.4 C L 82 19 137/75 95 Room Air 11/13/24 07:07 88 24 96 Nasal Cannula O2 Flow Rate 11/13/24 15:13 2 11/13/24 14:47 11/13/24 13:09 2 11/13/24 11:12 2 11/13/24 10:21 2 11/13/24 07:30 11/13/24 07:07 3 (1) Sepsis Sepsis type: sepsis due to unspecified organism Sepsis acute organ dysfunction status: with acute organ dysfunction Severe sepsis acute organ dysfunction type: acute renal failure Acute renal failure type: with other specified pathological lesion Severe sepsis shock status: without septic shock Qualified Code(s): A41.9 - Sepsis, unspecified organism; R65.20 - Severe sepsis without septic shock; N17.8 - Other acute kidney failure (5) COPD (chronic obstructive pulmonary disease) COPD type: emphysema Emphysema type: centrilobular Qualified Code(s): J43.2 - Centrilobular emphysema
[2024-11-14 08:14] LABS: Hematocrit (blood only) 33.1 % (42.0-52.0); Hemoglobin 11.3 g/dl (14.0-18.0); Mean Corpuscular Hemoglobin 29.4 pg (25.0-34.0); Mean Corpuscular Hgb Conc 34.1 g/dL (32.0-36.0); Mean Platelet Volume 10.9 fL (9.4-12.4); Platelet Count 187 K/uL (130-400); RDW Coefficient of Variation 12.9 % (11.5-14.5); RDW Standard Deviation 39.8 fL (36.4-46.3); Red Blood Count 3.85 M/uL (4.70-6.10); White Blood Count 8.96 K/ul (4.8-10.8)
[2024-11-14 08:46] LABS: BUN Creatinine Ratio 15.1 (10-20); Calcium 8.2 mg/dl (8.6-10.3); Creatinine Clr Calc Pharmacy 85.4 ml/min; Magnesium 1.5 mg/dl (1.7-2.4); Phosphorus 3.1 mg/dl (2.5-4.9); Potassium 3.4 mmol/L (3.5-5.1)
[2024-11-14] MEDS: MAGNESIUM SULFATE / D5W 1 GM/100 ML BAG IV SCH (09:38)
[2024-11-14] MEDS: POTASSIUM CHLORIDE CRTAB 20 MEQ TABCR PO STA (09:38)
--- NOTE | 2024-11-14 16:22 | Hospitalist Progress Note ---
Date of Service November 14, 2024 Assessment & Plan (1) Sepsis: (2) Acute on chronic hypoxic respiratory failure: (3) HAP (hospital-acquired pneumonia): (4) ASCVD (arteriosclerotic cardiovascular disease): (5) COPD (chronic obstructive pulmonary disease): (6) Wound infection following procedure: (7) Dyslipidemia, goal LDL below 70: (8) HTN, goal below 130/80: (9) Demand ischemia of myocardium: Plan Patient is a 79-year-old male with past medical history of respiratory failure on chronic oxygen therapy 3L, SANJAY, COPD, Right heart failure, CAD with hx of angioplasty and total of 4 stents, HTN, HLD, Chronic RBBB, tobacco abuse, hx of cva presented to the hospital with shortness of breath and weakness. Patient was recently hospitalized at [facility] with NSTEMI on 10/29 and was transferred to [facility] for cardiac cath. Patient underwent IVUS guided PCI and Rota atherectomy without complication on 10/31/2024; found to have right femoral site oozing; bleeding was controlled with manual pressure. Sepsis POA Right lung pneumonia Acute on chronic hypoxic respiratory failure History of COPD Patient presents to the hospital with shortness of breath, cough and weakness CT of the chest shows pneumonia of right lower lobe Respiratory viral panel negative Blood culture - NGTD MRSA swab negative Cefpime changed to zosyn given wound care results; Plan to treat for 7 days. Will switch to oral at the time of the discharge; possibly augmentin. Continue airway clearance therapy and DuoNeb, hypertonic saline Abnormal CT abdomen findings CT abdomen pelvis showed long segment rectal inflammation suggestive of p roctitis. Also reported to have nodular mesenteric soft tissue thickening of the rectum Evaluated by GI on 11/10/2023; patient reported that he would not want another colonoscopy. Denies dark stool, hematochezia. Acute kidney injury Likely secondary to sepsis Creatinine of 2 on admission with hypotension Improved with IV hydration Lisinopril and diuretic resumed on 11/12/2023 Right inguinal wound Patient had undergone cardiac cath through right femoral approach; has superficial incisional wound, no pus Cx growing Prevotella bivia; no sensitivity but is covered by zosyn/augmentin continue wound care. Recent history of NSTEMI status post RCA stent in [facility] Demand ischemia EKG on admission shows normal sinus rhythm with first-degree AV block and right bundle branch block; nonspecific T wave changes. High sensitive troponin elevated and down trended later Continue on aspirin, Brilinta, Lipitor and Coreg Echo shows EF of 55 to 60%; moderate size inferior and posterior wall abnormality with hypokinesis of the segments; no significant interval change compared to echo from 10/29/2024. Hyperlipidemiacontinue on Lipitor Hypertensioncontinue on Coreg, hold lisinopril Full code DVT prophylaxis Lovenox Disposition- PT/OT eval . patient prefers going home. likely dc dahlia. Admission and Anticipated Discharge Date Admission Date: November 09, 2024 Subjective Patient seen and examined at bedside. Comfortable; not in distress. Denies fever, chills, chest pain, abdominal pain or urinary symptoms. Reports improvement in shortness of breath and cough. No significant overnight events Patient denies rehab and home health, reports feeling tired today, states he feels he will be ready for discharge tomorrow. Physical Exam Physical Exam: Constitutional: WD/WN, vitals as above, NAD, sitting up in bed, pleasant, conversing easily Respiratory: Decreased breath sound on right lower base. Cardiovascular: RRR, no murmur, no edema Vessels: no JVD or carotid bruit Chest: normal inspection of chest Abdomen: normal bowel sounds, soft, nontender, no hepatosplenomegaly. Right inguinal region has small wound; no pus was expressed. Musculoskeletal: no cyanosis or clubbing, extremities motor strength 5/5 Skin: no rashes, warm and dry normal turgor Neurologic: PERRL, EOMI, accommodation nl, no face palsy, no dysarthria CN's II- XI intact bilaterally and moves all extremities Psychiatric: A+Ox3, euthymic affect Results & Data Results & Data Vital Signs (Past 12 Hours) Vital Signs Temp Pulse Pulse Resp BP Pulse Ox O2 Del Method 11/14/24 15:48 87 11/14/24 14:51 36.5 C 83 19 107/69 94 Nasal Cannula 11/14/24 11:19 36.5 C 80 18 105/65 94 Room Air 11/14/24 09:21 Nasal Cannula 11/14/24 07:58 82 18 90 Nasal Cannula 11/14/24 07:35 36.5 C 85 19 123/82 94 Nasal Cannula 11/14/24 07:16 94 H O2 Flow Rate 11/14/24 15:48 01/09/25 14:51 2 11/14/24 11:19 11/14/24 09:21 2 11/14/24 07:58 2 11/14/24 07:35 2 11/14/24 07:16 (1) Sepsis Sepsis type: sepsis due to unspecified organism Sepsis acute organ dysfunction status: with acute organ dysfunction Severe sepsis acute organ dysfunction type: acute renal failure Acute renal failure type: with other specified pathological lesion Severe sepsis shock status: without septic shock Qualified Code(s): A41.9 - Sepsis, unspecified organism; R65.20 - Severe sepsis without septic shock; N17.8 - Other acute kidney failure (5) COPD (chronic obstructive pulmonary disease) COPD type: emphysema Emphysema type: centrilobular Qualified Code(s): J43.2 - Centrilobular emphysema
[2024-11-15 03:20] VITALS: TEMP 97.7
[2024-11-15 05:27] LABS: BUN Creatinine Ratio 17.9 (10-20); Calcium 8.5 mg/dl (8.6-10.3); Creatinine Clr Calc Pharmacy 87.4 ml/min; Magnesium 1.8 mg/dl (1.7-2.4); Phosphorus 2.9 mg/dl (2.5-4.9); Potassium 3.4 mmol/L (3.5-5.1)
[2024-11-15] MEDS: POTASSIUM CHLORIDE CRTAB 20 MEQ TABCR PO STA (08:49)
--- NOTE | 2024-11-15 10:16 | Discharge Summary ---
Date of Service November 15, 2024 Admission HPI Per Admitting Provider 79 yo male with pmhx of COPD, CAD (s/p 3 stents 2007 D1/D2/LAD, s/p RCA stent 10/2024), COPD (3L baseline), DM type 2, depresssion, RBBB who presents for SOB. He states he has been having a severe cough for the past few days. He also states that he has been having diarrhea, some nausea, and low appetite. Granddaughter has noticed that his wound site on the right side burst open a bit and has had some purulent drainage from it. Other than that, has had chest pain since Monday. No tobacco or alcohol use. Discussed code status, would like to be full code. Would like grandaughters to make decisions for him (all 3 in room, live with him at home). Admission Exam Per Admitting Provider Gen: A&O 3 NAD HEENT: NCAT, EOMI, not icteric. External ears normal. No rhinorrhea. Moist mucous membranes. Neck: Supple, full range of motion, no observable masses, No meningeal sign. Lungs: No Respiratory distress. CV: heart sounds diminished Abdomen: Soft, nondistended, No rebound tenderness. MSK: No joint swelling, no redness. Skin: noted right inguinal wound, skin tears, some purulence noted Neuro: Normal Gait, Grossly intact. Psych: Appropriate for situation. Principal Diagnosis Sepsis POA Right lung pneumonia Acute on chronic hypoxic respiratory failure History of COPD Acute kidney injury Right inguinal wound Discharge Exam Constitutional: WD/WN, vitals as above, NAD, sitting up in bed, pleasant, conversing easily Respiratory: rll crackles noted. breath sounds improving. Cardiovascular: RRR, no murmur, no edema Vessels: no JVD or carotid bruit Chest: normal inspection of chest Abdomen: normal bowel sounds, soft, nontender, no hepatosplenomegaly. Right inguinal region has small wound; no pus was expressed. Musculoskeletal: no cyanosis or clubbing, extremities motor strength 5/5 Skin: no rashes, warm and dry normal turgor Neurologic: PERRL, EOMI, accommodation nl, no face palsy, no dysarthria CN's II- XI intact bilaterally and moves all extremities Psychiatric: A+Ox3, euthymic affect Discharge Data Allergies Allergy/AdvReac Type Severity Reaction Status Date / Time No Known Allergies Allergy Verified 10/29/24 08:39 Consultations 11/09/24 17:08 ED Decision to Admit Stat 11/10/24 10:33 Consult Gastroenterology Routine Ordered Studies 11/09/24 17:30 CT Abd and Pelvis [CT abd pelvis wo con] Stat CT chest without contrast [CT chest diagnostic wo con] Stat Hospital Course (1) Sepsis: (2) Acute on chronic hypoxic respiratory failure: (3) HAP (hospital-acquired pneumonia): (4) ASCVD (arteriosclerotic cardiovascular disease): (5) COPD (chronic obstructive pulmonary disease): (6) Wound infection following procedure: (7) Dyslipidemia, goal LDL below 70: (8) HTN, goal below 130/80: (9) Demand ischemia of myocardium: Plan Patient is a 79-year-old male with past medical history of respiratory failure on chronic oxygen therapy 3L, SANJAY, COPD, Right heart failure, CAD with hx of angioplasty and total of 4 stents, HTN, HLD, Chronic RBBB, tobacco abuse, hx of cva presented to the hospital with shortness of breath and weakness. Patient was recently hospitalized at [facility] with NSTEMI on 10/29 and was transferred to [facility] for cardiac cath. Patient underwent IVUS guided PCI and Rota atherectomy without complication on 10/31/2024; found to have right femoral site oozing; bleeding was controlled with manual pressure. He was managed for the following: Sepsis POA Right lung pneumonia Acute on chronic hypoxic respiratory failure History of COPD Patient presents to the hospital with shortness of breath, cough and weakness CT of the chest shows pneumonia of right lower lobe Respiratory viral panel negative Blood culture - NGTD MRSA swab negative Cefpime changed to zosyn given wound care results; to Augmentin on dc to complete course. Pt reports improving sob/cough significantly. Pt is hemodynamically stable and back to baseline O2 need. Abnormal CT abdomen findings CT abdomen pelvis showed long segment rectal inflammation suggestive of proctitis. Also reported to have nodular mesenteric soft tissue thickening of the rectum Evaluated by GI on 11/10/2023; patient reported that he would not want another colonoscopy. Denies dark stool, hematochezia. Acute kidney injury Likely secondary to sepsis Creatinine of 2 on admission with hypotension Improved with IV hydration Lisinopril and diuretic resumed on 11/12/2023 Right inguinal wound Patient had undergone cardiac cath through right femoral approach; has superficial incisional wound, no pus Cx growing Prevotella bivia; no sensitivity but is covered by zosyn/augmentin continue wound care. Recent history of NSTEMI status post RCA stent in [facility] Demand ischemia EKG on admission shows normal sinus rhythm with first-degree AV block and right bundle branch block; nonspecific T wave changes. High sensitive troponin elevated and down trended later Continue on aspirin, Brilinta, Lipitor and Coreg Echo shows EF of 55 to 60%; moderate size inferior and posterior wall abnormality with hypokinesis of the segments; no significant interval change compared to echo from 10/29/2024. Hyperlipidemiacontinue on Lipitor Hypertensioncontinue on Coreg, lisinopril Full code DVT prophylaxis Lovenox Patient does not want rehab or home health. He wants to go home. He is being discharged with following instruction at the point of discharge: Follow-up with your primary care physician within a week time and likely you will need labs CBC/CMP/magnesium/phosphorus. You were treated for right lung pneumonia, you will be given antibiotic to c omplete the course. Probiotics will be added. You will need repeat CXR in about 6 weeks time to document resolution of your pneumonia. Continue wound care of your right inguinal wound, follow-up with your PCP office within a week time for ongoing monitoring/management. Follow-up with your cardiology as prior. Take your medications as prescribed. Please make sure that you are able to get your medications today by calling your pharmacy before you leave the hospital so that your treatment continuity is not broken. Home Health Attestation I certify that this patient is under my care and that I, or a physicians clinical lab assistant working with me, had a face to-face encounter that meets the home health [facility] encounter requirements with this patient. The encounter with the patient was in whole, or in part, for the following medical condition, which is the primary reason for home health care (list medical condition): I certify that, based on my findings, the following services are medically necessary home health services: My clinical findings support the need for the above services because: Further, I certify that my clinical findings support that this patient is homebound (i.e. absences from home require considerable and taxing effort and are for medical reasons or zoroastrianism services or infrequently or of short duration when for other reasons) because: Certification for Home Health Services: Based on the above findings, I certify that this patient is confined to the home and needs intermittent jail care, physical therapy and/or speech therapy or continues to need occupational therapy. The patient is under my care, and I have initiated the establishment of the plan of care. This patient will be followed by a physician who will periodically review the plan of care. Total Time Total Time Spent Total Time Spent (In Minutes): 35 Discharge Plan Discharge Items Patient Disposition: Home - Self-Care Reason For Visit: SHORTNESS OF BREATH Discharge Diagnosis: Sepsis POA Right lung pneumonia Acute on chronic hypoxic respiratory failure History of COPD Acute kidney injury Right inguinal wound Activity: Resume your previous activity Non-emergency contact: Primary Care Provider Call non-emergency contact if: you have any medication questions and your temperature is above 101 Follow-up/Referrals: Kumar Anders DO [Primary Care Provider] - Diet: Heart Healthy Addtl Attending Provider Instructions: Follow-up with your primary care physician within a week time and likely you will need labs CBC/CMP/magnesium/phosphorus. You were treated for right lung pneumonia, you will be given antibiotic to complete the course. Probiotics will be added. You will need repeat CXR in about 6 weeks time to document resolution of your pneumonia. Continue wound care of your right inguinal wound, follow-up with your PCP office within a week time for ongoing monitoring/management. Follow-up with your cardiology as prior. Take your medications as prescribed. Please make sure that you are able to get your medications today by calling your pharmacy before you leave the hospital so that your treatment continuity is not broken. Pending Studies at Discharge: No Stand-Alone Forms: My [facility] Lessonwriter, Smoking Cessation Medications and DC Order Prescriptions: New potassium chloride 20 mEq tablet extended release 20 meq PO DAILY Qty: 30 0RF Rx Instructions: take it daily when taking your torsemide in morning. amoxicillin-pot clavulanate 875-125 mg tablet 1 tab PO BID 4 Days Qty: 8 0RF Probiotic 3 billion cell capsule 3,000 mmu cells PO DAILY 7 Days Qty: 7 0RF Rx Instructions: administer with a meal Continued atorvastatin 40 mg tablet 40 mg PO DAILY metformin 500 mg tablet 500 mg PO QAM aspirin 81 mg Tablet,Delayed Release (Dr/Ec) 81 mg PO DAILY nitroglycerin 0.4 mg Tablet, Sublingual 0.4 mg sublingual DIRECTED PRN (Reason: Chest Pain) lisinopril 5 mg tablet 5 mg PO DAILY albuterol sulfate 90 mcg/actuation HFA aerosol inhaler 2 puff INHALATION Q4H PRN (Reason: cough,sob,wheezing) Spiriva Respimat 2.5 mcg/actuation Mist 2 puff INHALATION DAILY Trelegy Ellipta 100-62.5-25 mcg blister with device 1 inh INHALATION QAM albuterol sulfate 2.5 mg /3 mL (0.083 %) Solution For Nebulization 2.5 mg inhalation Q4H PRN (Reason: sob) Qty: 360 0RF sertraline 25 mg tablet 25 mg PO DAILY dexlansoprazole [Dexilant] 60 mg capsule,biphase delayed releas 60 mg PO DAILY torsemide 20 mg tablet 40 mg PO BID roflumilast [Daliresp] 500 mcg Tablet 500 mcg PO DAILY sodium chloride 5 % Drops 1 drp OPR QID Rx Instructions: am, noon, evening and HS atorvastatin 80 mg tablet 80 mg PO DAILY carvedilol 6.25 mg tablet 6.25 mg PO DAILY Brilinta 90 mg tablet 90 mg PO DAILY Discharge Orders: Discharge Order (Routine); Ordered 11/15/24 Ordered By: Neil Hartman Admission Data Admit Date/Time: 11/09/24 17:41 Attending Provider: Neil Hartman Admit Provider: Donnie Johnston Primary Care Provider: Kumar Anders Other Providers: Donnie Johnston; Radha Barajas Jr
[2024-11-15 10:56] VITALS: BP 108/73
[2024-11-15] MEDS: AMOXICILLIN/CLAVULANATE 875 MG TAB PO ONE (11:05)
[2024-11-15] MEDS: INFLUENZA VACC TS2024-25(65y+)/PF (IIV3) 0.5mL Syr IM ONE (11:30)
[2024-11-15 14:23] VITALS: PULSE 84; RESP 16; O2SAT 92
== END 2024-11-15 16:33 | disposition home or self-care (01) | DRG 871 ==
LOC: ED 15:20 → EDINP 17:41 → SUATTDRO 17:41 → 4W 19:32

== ENCOUNTER 2025-01-25 15:55 | Inpatient (IN) ==
--- OUTSIDE RECORDS SUMMARY | 2025-01-25 16:00 | External Medical Summary | Summary of Care ---
Author Name Unknown Organization [facility] Address [address] [place] [address] Phone [phone] Care Team Providers Care Collar Cutter Name Role Phone AndersKumar Yifan Primary Care Provider [phone] Reason for Visit * Reason Onset Date Comments [facility]: Maintenance 11/12/2024 Encounter Details Date Type Department Care Team (Late st Contact Info) Description 11/12/2024 Telephone [facility], [facility] [address] [facility] [place] [address] Aston Gomez, RN [address] [facility] [place] [address] [facility]: Maintenance Allergies Active Allergy Reactions Criticality Noted Date Comments Penicillins Hives 06/19/2009 Pentobarbital Sodium 04/10/2014 documented as of this encounter (statuses as of 11/12/2024) Medications ASPIRIN 81 MG PO TABS Active [...] as of this encounter (statuses as of 11/12/2024) Active Problems Problem Noted Date Diagnosed Date [...] - LEXY o Class D - Inhaled Saxxdfbwjzyxuo-GFAZ-QDMS Combination Inhaler (Trellegy) Self-Management plan o High [...] on file. [facility] Coronary atherosclerosis of [place] coronary [place] ry 08/28/2011 BMI 35-39 ISOLATED (SEE ACTUAL BMI) 04/19/2010 Overview (04/19/2010): Per Obesity Protocol, #19 SANJAY (obstructive sleep apnea) Assessment & Plan (04/18/2023 2:15 PM EDT): Refuses CPAP documented as of this encounter (statuses as of 11/12/2024) Resolved Problems Problem Noted Date Diagnosed Date Resolved Date Complicated UTI (urinary tract infection) 10/30/2024 10/30/2024 documented as of this encounter (statuses as of 11/12/2024) Immunizations Name Administration Dates Next Due COVID-19 [...] Does the household have a [facility] source of income? (Household - for [...] encounter Miscellaneous Notes * Telephone Encounter - Aston Gomez RN - 11/12/2024 10:50 AM EST Maddy, Pt has declined further [facility] services - [facility] episode closed at this time and future [facility] visits cancelled Per Blanca Goetz, Grocery Worker he will be closed at this time He is a SNP and remains open with L2CCM with you listed as his CM so I did not place a new referral Currently adm to [facility] for sob and cp Will need clarification of o2 dosing upon d/c home (please see Zora's 11/11 note) NOTE: pt has no running water (gets water out of [place] beside home) and no indoor bathroom (uses bsc at night, out house during day), pt seems to be quite content with living situation Please reach out if you have any questions Thank you, aston documented in this encounter Plan of Treatment Upcoming Encounters Date Type Department Care Team (Late st Contact Info) Description 06/26/2025 8:15 AM EDT Office Visit Ophthalmology, [place] [phone] David Wang MD [place] [address] Health Maintenance Due Date Last Done Comments [...] this encounter Medical Devices Implanted Type Area Financial Professional Device Identifier Shelf Expiration Date Model / Serial / Lot Stent [place] 3.50x34 [place] Rx - [id number] Implanted:Qty: 1 on 10/31/2024 by Juan Manuel Ellis [place] [facility] [place] [facility] [place]ULAR [id number] 05/04/2027 [id number] UX / / [id number] documented as of this encounter Advance Directives [...] the patient have Health Care Power of Projection Engineer? Yes, not currently available Healthcare Agents on File Name Relationship Healthcare Agent Relationshi p Communication Cheli Willis Adult Child Health Care Repr esentative (appointed verbally by patient or by statute hierarchy) Care Teams Collar Cutter Relationship Specialty Start Date End Date Kumar Anders DO [address] [place] [address] PCP - General 12/14/07 documented as of this encounter
--- OUTSIDE RECORDS SUMMARY | 2025-01-25 16:00 | External Medical Summary | Summary of Care ---
Author Name Unknown Organization [facility] Address [address] [place] [address] Phone [phone] Care Team Providers Care Disaster Recovery Coordinator Name Role Phone AndersKaleb garcian Yifan Primary Care Provider [phone] Encounter Details Date Type Department Care Team (Late st Contact Info) Description 11/25/2024 Population Health External Data Unspecified Department Allergies Active Allergy Reactions Criticality Noted Date Comments Penicillins Hives 06/19/2009 Pentobarbital Sodium 04/10/2014 documented as of this encounter (statuses as of 11/25/2024) Medications ASPIRIN 81 MG PO TABS Active [...] as of this encounter (statuses as of 11/25/2024) Active Problems Problem Noted Date Diagnosed Date [...] - LEXY o Class D - Inhaled Dhvhodczrdohib-FEKY-EGIP Combination Inhaler (Sesary) Self-Management plan o High frequency nebulizer treatments [...] on file. [facility] Coronary atherosclerosis of [place] coronary [place] ry 08/28/2011 BMI 35-39 ISOLATED (SEE ACTUAL BMI) 04/19/2010 Overview (04/19/2010): Per Obesity Protocol, #19 SANJAY (obstructive sleep apnea) Assessment & Plan (04/18/2023 2:15 PM EDT): Refuses CPAP documented as of this encounter (statuses as of 11/25/2024) Resolved Problems Problem Noted Date Diagnosed Date Resolved Date Complicated UTI (urinary tract infection) 10/30/2024 10/30/2024 documented as of this encounter (statuses as of 11/25/2024) Immunizations Name Administration Dates Next Due COVID-19 [...] 06/26/2025 8:15 AM EDT Office Visit Ophthalmology, [place] [address] David Wang MD [address] [place] [address] Health Maintenance Due Date Last Done Comments Diabetic Foot Exam 1963 Hepatitis C Screening 1963 Zoster Vaccines (1 of 2) 1997 *ADVANCE DIRECTIVE NOT ON FILE 03/19/2015 Albumin/Creatinine Ratio 01/13/2016 01/12/2015 DISCUSS TOBACCO CESSATION (REFER TO SMARTSET #3291) 05/24/2024 05/24/2023, 04/22/2022, 09/24/2018, Additional history exists COVID-19 Vaccine ( season) 2024 10/19/2021, 02/23/2021, 02/05/2021 HbA1c 04/30/2025 10/30/2024, 09/01/2019, 12/10/2018, Additional history exists Diabetic Eye Exam [...] this encounter Medical Devices Implanted Type Area Change Advisor Device Identifier Shelf Expiration Date Model / Serial / Lot Stent [place] 3.50x34 [place] Rx - [id number] Implanted:Qty: 1 on 10/31/2024 by Juan Manuel Ellis MD [place] [facility] [place] [employer] [place] [id number] 05/04/2027 [id number] UX / / [id number] documented as of this encounter Advance Directives [...] patient have Health Care Power of Attor naet? No * No Code Date Activated Date Inactivated Comments 03/26/2017 2:59 AM 03/26/2017 2:00 PM This order r eflects the patients wishes and were consensually agreed upon. Question Answer Comments Discussion of Advance Directives occurred with: Patient Does the patient have a Living Will? Yes, not cu rrently available Does the patient have Health Care Power of Solar Energy System Installer? Yes, not currently available Healthcare Agents on File Name Relationship Healthcare Agent Relationshi p Communication Cheli [facility] Child [facility] Repr esentative (appointed verbally by patient or by statute hierarchy) Care Teams Disaster Recovery Coordinator Relationship Specialty Start Date End Date Kumar Anders DO [address] [place] [address] PCP - General 12/14/07 documented as of this encounter
--- OUTSIDE RECORDS SUMMARY | 2025-01-25 16:01 | External Medical Summary | Summary of Care ---
Author Name Unknown Organization [facility] Address [address] [place] [address] Phone [phone] Care Team Providers Care Director Of Cardiac Rehabilitation Name Role Phone AndersKaleb garcian Yifan Primary Care Provider [phone] Reason for Visit * Reason Onset Date Comments [facility]: Maintenance 11/12/2024 Encounter Details Date Type Department Care Team (Late st Contact Info) Description 11/12/2024 Telephone [facility], [place] [address] [place] [phone] Bushra Catalan, STATION DETECTIVE [address] [place] [address] [facility]: Maintenance Allergies Active [...] - LEXY o Class D - Inhaled Vwrvzeyghfzybx-DMKE-WDNL Combination Inhaler (Trellegy) Self-Management plan o High [...] on file. [facility] Coronary atherosclerosis of [place] coronary [place] ry 08/28/2011 BMI 35-39 ISOLATED [...] No 11/04/2024 Does the household have a [facility] source [facility] income? (Household - for [...] Entry Date Author Yes 10/29/2024 11:28 PM EST Burt Watkins RN documented in this encounter Miscellaneous Notes * Telephone Encounter - Bushra Catalan LPN - 11/12/2024 10:42 AM EST Noted on JULITO list Admitted to [facility] Added to hospital list to follow documented in this encounter Plan of Treatment Upcoming Encounters Date Type Department Care Team (Late st Contact Info) Description 11/15/2024 3:00 PM EST [facility] Visit [facility] [place], [facility] [address] [place] [address] Mateo Irving PA-C [address] [place] [address] 12/03/2024 1:00 PM EST Home Visit [facility], [facility] [address] [place] [address] Mateo Irving PA-C [address] [place] [address] 12/19/2024 10:00 AM EST [facility] Visit [facility] [place], [facility] [address] [place] [address] Estefani Gomez RN [address] [place] [address] 06/26/2025 8:15 AM EDT Office Visit Ophthalmology, [place] [address] [place] [address] David Wang MD [address] [place] [address] Health Maintenance Due Date Last Done Comments [...] this encounter Medical Devices Implanted Type Area Turbine Engineer Device Identifier Shelf Expiration Date Model / Serial / Lot Stent [place] 3.50x34 [place] Rx - [id number] Implanted:Qty: 1 on 10/31/2024 by Juan Manuel Ellis MD at [facility] [place] [employer] : VASCULAR [id number] 05/04/2027 [id number] UX / / [id number] documented as of this encounter Advance Directives [...] the patient have Health Care Power of V[place]? Yes, not currently available Healthcare Agents on File Name Relationship Healthcare Agent Relationshi p Communication Cheli Stewart Adult Child Health Care Repr esentative (appointed verbally by patient or by statute hierarchy) Care Teams Director Of Cardiac Rehabilitation Relationship Specialty Start Date End Date Kumar Anders DO [address] [place] [address] PCP - General 12/14/07 documented as of this encounter
--- OUTSIDE RECORDS SUMMARY | 2025-01-25 16:01 | External Medical Summary | Summary of Care ---
Author Name Unknown Organization [facility] Address [address] [place] [address] Phone [phone] Care Team Providers Care Agriculture Sales Account Manager Name Role Phone AndersKaleb garcian Yifan Primary Care Provider [phone] Reason for Visit * Reason Onset Date Comments [facility]: Maintenance 11/12/2024 Encounter Details Date Type Department Care Team (Late st Contact Info) Description 11/12/2024 Telephone [facility], [place] [facility] [address] [place] [phone] Bushra Catalan, STUDIO DIRECTOR [address] [place] [address] [facility]: Maintenance Allergies [...] - LEXY o Class D - Inhaled Yxkdsvjpylgtym-HVFB-GJTY Combination Inhaler (Trellegy) Self-Management plan o High [...] on file. [facility] Coronary atherosclerosis of [place] coronary [place] ry 08/28/2011 BMI 35-39 ISOLATED [...] No 11/04/2024 Does the household have a [facility] source [facility] income? (Household - for ages [...] Catalan LPN - 11/12/2024 10:42 AM EST Per RN Estefani Loner patient will be transitioned to L2RNC no need for [facility] to follow d/c from [facility] documented in this encounter Plan of Treatment Upcoming Encounters Date Type Department Care Team (Late st Contact Info) Description 06/26/2025 8:15 AM EDT Office Visit Ophthalmology, [place] [address] David Wang MD [address] [place] [address] Health Maintenance Due Date Last Done Comments [...] this encounter Medical Devices Implanted Type Area Wringer Operator Device Identifier Shelf Expiration Date Model / Serial / Lot Stent [place] 3.50x34 [place] [facility] - [id number] Implanted:Qty: 1 on 10/31/2024 by Juan Manuel Ellis MD at [facility] [place] [employer] : VASCULAR [id number] 05/04/2027 [id number] UX / / [id number] documented as of this encounter Advance Directives [...] the patient have Health Care Power of Fountain Clerk? Yes, not currently available Healthcare Agents on File Name Relationship Healthcare Agent Relationshi p Communication [facility] Repr esentative (appointed verbally by patient or by statute hierarchy) Care Teams Agriculture Sales Account Manager Relationship Specialty Start Date End Date Kumar Anders DO [address] [place] [address] PCP - General 12/14/07 documented as of this encounter
--- OUTSIDE RECORDS SUMMARY | 2025-01-25 16:01 | External Medical Summary | Summary of Care ---
Author Name Unknown Organization [facility] Address [address] [place] [address] Phone [phone] Care Team Providers Care Housecleaner Name Role Phone AndersKaleb garcian Yifan Primary Care Provider [phone] Encounter Details Date Type Department Care Team (Late st Contact Info) Description 11/12/2024 Population Health External Data Unspecified Department Allergies [...] - LEXY o Class D - Inhaled [id number] Combination Inhaler (Sesary) Self-Management plan o High [...] on file. PCP [facility] Coronary atherosclerosis of [place] coronary [place] ry 08/28/2011 BMI 35-39 ISOLATED [...] 3:00 PM EST Home Visit [facility], [facility] [address] [place] [address] Mateo Irving PA-C [address] [place] [id number] 12/03/2024 1:00 PM EST Home Visit [facility], [facility] [address] [place] [address] Mateo Irving PA-C [address] [place] [id number] 12/19/2024 10:00 AM EST Home Visit [facility], [facility] [address] [place] [address] Estefani Gomez RN [address] [place] [id number] 06/26/2025 8:15 AM EDT Office Visit Ophthalmology, [place] [phone] David Wang MD [address] [place] [id number] Health Maintenance Due Date Last Done Comments [...] this encounter Medical Devices Implanted Type Area Pilot Device Identifier Shelf Expiration Date Model / Serial / Lot Stent [place] 3.50x34 [employer] - [id number] Implanted:Qty: 1 on 10/31/2024 by Juan Manuel Ellis MD at [facility] [employer] : VASCULAR [id number] 05/04/2027 [id number] UX / / [id number] documented as of this encounter Advance Directives [...] the patient have Health Care Power of Mirror Specialist? Yes, not currently available Healthcare Agents on File Name Relationship Healthcare Agent Relationsin p Communication [facility] Repr esentative (appointed verbally by patient or by statute hierarchy) Care Teams Housecleaner Relationship Specialty Start Date End Date Kumar Anders DO [address] [place] [address] PCP - General 12/14/07 documented as of this encounter
[2025-01-25 16:44] LABS: Basophils # (auto) 0.05 K/uL (0.00-0.20); Basophils % (auto) 0.5 %; Eosinophils # (auto) 0.15 K/uL (0.00-0.50); Eosinophils % (auto) 1.5 %; Hematocrit (blood only) 35.1 % (42.0-52.0); Hemoglobin 11.3 g/dl (14.0-18.0); Immature Granulocytes # (auto) 0.04 K/uL (0.01-0.20); Immature Granulocytes % (auto) 0.4 %; Lymphocytes # (auto) 1.27 K/uL (1.20-3.40); Lymphocytes % (auto) 12.8 %; Mean Corpuscular Hemoglobin 28.7 pg (25.0-34.0); Mean Corpuscular Hgb Conc 32.2 g/dL (32.0-36.0); Mean Corpuscular Volume 89.1 fL (80.0-100.0); Mean Platelet Volume 11.5 fL (9.4-12.4); Monocytes # (auto) 0.86 K/uL (0.11-0.59); Monocytes % (auto) 8.7 %; Neutrophils # (auto) 7.55 K/uL (1.40-6.50); Neutrophils % (auto) 76.1 %; Platelet Count 196 K/uL (130-400); RDW Coefficient of Variation 12.6 % (11.5-14.5); RDW Standard Deviation 40.8 fL (36.4-46.3); Red Blood Count 3.94 M/uL (4.70-6.10); White Blood Count 9.92 K/ul (4.8-10.8)
[2025-01-25] MEDS: SODIUM CHLORIDE 0.9% 1,000 ML IV SCH (16:50)
[2025-01-25] MEDS: SODIUM CHLORIDE 0.9% 250 ML IV ONE (16:50)
[2025-01-25] MEDS: methylPREDNISolone 125 MG/2 ML VIAL IV STA (16:51)
[2025-01-25] MEDS: ALBUT/IPRATROP 3MG/0.5MG NEB 3 ML VIAL NEB STA ×2 (16:54→17:56)
[2025-01-25 17:09] LABS: Troponin I High Sensitivity 45.8 pg/ml (0-20)
[2025-01-25 17:12] LABS: Partial Thromboplastin Ratio 0.9; Partial Thromboplastin Time 25 Seconds (21-31); Prothrombin Time 11.3 Seconds (9.0-12.0)
[2025-01-25 17:17] LABS: Albumin Globulin Ratio 1.3 (0.9-2); Albumin Level 4.2 gm/dl (3.4-5.0); BUN Creatinine Ratio 27.3 (10-20); Bilirubin,Total 0.5 mg/dl (0.2-1.0); Calcium 9.7 mg/dl (8.6-10.3); Creatinine Clr Calc Pharmacy 61.7 ml/min; Globulin 3.3 gm/dl (2.5-4.0); Total Protein 7.5 gm/dl (6.0-8.3)
[2025-01-25 17:23] LABS: Adenovirus PCR Not Detected (NotDetected); Bordetella parapertussis PCR Not Detected (NotDetected); Bordetella pertussis PCR Not Detected (NotDetected); Chlamydia pneumoniae PCR Not Detected (NotDetected); Coronavirus 229E PCR Not Detected (NotDetected); Coronavirus CoV-2 (COVID19)PCR Not Detected (NotDetected); Coronavirus HKU1 PCR Not Detected (NotDetected); Coronavirus NL63 PCR Not Detected (NotDetected); Coronavirus OC43PCR Not Detected (NotDetected); Human Metapneumovirus PCR Not Detected (NotDetected); Influenza A PCR Not Detected (NotDetected); Influenza B PCR Not Detected (NotDetected); Mycoplasma pneumoniae PCR Not Detected (NotDetected); Parainfluenza Virus 1 PCR Not Detected (NotDetected); Parainfluenza Virus 2 PCR Not Detected (NotDetected); Parainfluenza Virus 3 PCR Not Detected (NotDetected); Parainfluenza Virus 4 PCR Not Detected (NotDetected); Respiratory Syncytial VirusPCR Not Detected (NotDetected); Rhinovirus/Enterovirus PCR Not Detected (NotDetected)
--- NOTE | 2025-01-25 17:59 | XRay Report ---
EXAM: XR chest 1V portable CLINICAL HISTORY: Chest pain, nonspecific. TECHNIQUE: An X-ray image of the chest is obtained in AP projection. COMPARISON: previous CXR dated 11/09/2024. FINDINGS: Pulmonary Parenchyma: Bilateral increased broncho vascular markings likely of congestive process. No evidence of consolidation, or collapse. Small right upper lung zone nodule. decreased the previously seen left lower lung zone veiling. Blunted right costophrenic angle, minimal effusion or pleural thickening. Heart and Mediastinum: Heart size and shape are normal. No mediastinal widening or masses. No hilar or mediastinal lymphadenopathy. Bony Thorax: Right-sided angulation of lower ribs Soft Tissues: Soft tissues overlying the chest wall are unremarkable. IMPRESSION: 1. Bilateral increased broncho vascular markings likely of the congestive process. (unchanged) 2. blunted right costophrenic angle, minimal effusion or pleural thickening. (unchanged) 3. small right upper lung zone nodule. (unchanged) 4. decreased the previously seen left lower lung zone veiling. Electronically signed by Zeke Connell 01-25-2025 5:59 PM
[2025-01-25] MEDS: AZITHROMYCIN 250 MG TAB PO ONE (19:01)
--- NOTE | 2025-01-25 19:24 | History & Physical Report ---
Date of Service January 25, 2025 Assessment & Plan (1) COPD exacerbation: (2) ASCVD (arteriosclerotic cardiovascular disease): (3) HTN, goal below 130/80: (4) Dyslipidemia, goal LDL below 70: (5) Tobacco abuse: (6) Marijuana use: (7) SANJAY (obstructive sleep apnea): (8) T2DM (type 2 diabetes mellitus): Plan This is a 79 y/o male with severe COPD, CAD s/p stents x 3, DM2, depression, HTN, dyslipidemia, and other history as outlined below who presents to the ED today with cough and increased SOB x one week. Work-up in the ED revealed a normal WBC count at 9.92, negative BioFire, mildly elevated troponin at 45.8, repeat 39.8, which is comparable to last admission. Chest x-ray showed findings unchanged from prior. He was requiring additional O2 per ED provider so pt was referred for admission for further management of presumed COPD exacerbation. No evidence of acute cardiac ischemia at present. #COPD Exacerbation - on baseline O2 of 3L at night and when he lies down to rest - Observe in med telemetry overnight - Continue IV steroids started in the ED - ordered methylprednisolone 40 mg IV daily starting tomorrow, will likely need prednisone taper at d/c - Azithromycin 500 mg daily for three days - DuoNebs QID scheduled and Q2 hrs prn - Continue outpatient COPD medications - Mucinex BID #ASCVD - denies anginal symptoms at present, troponin stable - Continue outpatient medications including Brilinta, aspirin, statin, and beta- natan #DM2 - Insulin sliding scale - Holding metformin - Diabetic diet - BSG ACHS #Hypertension - Chronic, stable - continue home meds #Dyslipidemia - Chronic, stable - continue statin #GERD - Chronic, stable - continue PPI Pt seen and reviewed with collaborating physician, Dr. Andre. Plan of care discussed and as outlined above. Code status: Full code DVT Prophylaxis: Lovenox PT/OT evaluations ordered for tomorrow See Shelton PA-C History of Present Illness Chief Complaint: shortness of breath, cough Primary Care Provider: Kumar Anders, This is a 79 y/o male with severe COPD, CAD s/p stents x 3, DM2, depression, HTN, dyslipidemia, and other history as outlined below who presents to the ED today with cough and increased SOB x one week. He reports increased dyspnea over the last week as well as ongoing chronic cough that is productive of moderate amount of sputum. He has been using his rescue inhaler more frequently over the last week as well. He reports chronically using O2 at night for sleep apnea, typically 3L. Also uses at home any time he lies down but does not wear with activity. He continues to smoke (1/2 PPD cigarettes, marijuana) but only in his kitchen away from his oxygen tanks. He has no interest in quitting and denies the need for a nicotine patch. He states that he came in today because his daughters were concerned about his breathing although he does not feel like things are that much worse than his baseline. He notes having diarrhea all day yesterday but none today. His appetite has been decreased. He reports 100 lb weight loss over the last year. Has some chills and hot flashes at times but denies drenching night sweats. No documented fevers. He denies chest pain, leg swelling. He thinks that his medications are the same as when he was discharged from [facility] in November but is unsure. Allergies Allergy/AdvReac Type Severity Reaction Status Date / Time No Known Allergies Allergy Verified 01/25/25 18:53 Home Medications Medication Instructions Recorded Confirmed Type albuterol sulfate 90 mcg/actuation 2 puff inhalation Q4H PRN 07/21/24 01/25/25 History aerosol inhaler cough,sob,wheezing aspirin 81 mg tablet,delayed 81 mg PO DAILY 07/21/24 01/25/25 History release fluticasone fur. 100 mcg-umeclid 1 inh inhalation QAM 07/21/24 01/25/25 History 62.5 mcg-vilant 25 mcg inhalat.powder (Trelegy Ellipta) lisinopril 5 mg tablet 5 mg PO DAILY 07/21/24 01/25/25 History metformin 500 mg tablet See Rx Instructions .Route .COMPLEX 07/21/24 01/25/25 History nitroglycerin 0.4 mg sublingual 0.4 mg sublingual DIRECTED PRN 07/21/24 01/25/25 History tablet Chest Pain albuterol sulfate 2.5 mg/3 mL 2.5 mg (3 mL) inhalation Q4H PRN 07/23/24 01/25/25 Rx (0.083 %) solution for nebulization sob #360 mL dexlansoprazole 60 mg 60 mg PO DAILY 10/28/24 01/25/25 History capsule,biphase delayed release (Dexilant) roflumilast 500 mcg tablet 500 mcg PO DAILY 10/28/24 01/25/25 History (Daliresp) sertraline 25 mg tablet 25 mg PO DAILY 10/28/24 01/25/25 History torsemide 20 mg tablet 40 mg PO BID 10/28/24 01/25/25 History carvedilol 6.25 mg tablet 6.25 mg PO BID 11/09/24 01/25/25 History ticagrelor 90 mg tablet (Brilinta) 90 mg PO BID 11/09/24 01/25/25 History atorvastatin 80 mg tablet 80 mg PO DAILY 01/25/25 01/25/25 History hydrocodone 10 mg-acetaminophen 1 tab PO Q6H PRN Pain 01/25/25 01/25/25 History 325 mg tablet potassium chloride 20 mEq 20 meq PO DAILY PRN When taking 01/25/25 01/25/25 History tablet,extended release Torsemide Past Med/Surg History Problem List (Updated 01/25/25 @ 21:20 by Luly Shelton PA-C) COPD exacerbation SOB (shortness of breath) (Acute) Dyslipidemia, goal LDL below 70 HTN, goal below 130/80 ASCVD (arteriosclerotic cardiovascular disease) Medical History Acute non-ST elevation myocardial infarction (NSTEMI) NSTEMI (non-ST elevated myocardial infarction) Stable angina Recent cerebrovascular accident (CVA) Stroke-like symptoms COPD exacerbation Left-sided chest pain Complicated UTI (urinary tract infection) Calculus of kidney Obesity (BMI 30.0-34.9) SANJAY (obstructive sleep apnea) Marijuana use Tobacco abuse Chronic hypoxic respiratory failure COPD (chronic obstructive pulmonary disease) T2DM (type 2 diabetes mellitus) CAD (coronary artery disease) HLD (hyperlipidemia) HTN (hypertension) Surgical History Hx of percutaneous left heart catheterization and 2 stents in 2007 LAD Hx laparoscopic cholecystectomy Hx of right heart catheterization 2 stents in 2005 1st and 2nd diagonal History of nasal surgery Hx of cataract extraction Hx of vasectomy Hx of tonsillectomy Family History Mother Osteoarthritis Coronary heart disease Hypertension Social History Smoking Status: Current every day smoker Tobacco Type: Cigarettes Second Hand Exposure: Yes; Do You Dip or Chew Tobacco: No; Hx Alcohol Use: No Hx Substance Use: Yes Last Used Substance: Hours (ago) Last Used Substance Other:: marijuana Preferred Language: Upper Sorbian Communication Ability: Effective Caser In Required: No Beliefs That Will Affect Care: None Current Living Situation: Family Current Living Situation Comment: Lives with daughter and grad-daughter listed above Feels Safe at Home: Yes Assistive Devices: Cane, Oxygen - at Night and Walker Review of Systems Review of Systems: All systems reviewed & are unremarkable except as noted in Subjective Physical Exam Physical Exam: Please see physician note for details of the physical exam. Results & Data Results & Data Vital Signs (Past 12 Hours) Vital Signs Temp Pulse Pulse Resp BP BP Pulse Ox 01/25/25 19:03 76 16 123/74 95 01/25/25 17:30 76 23 122/86 98 01/25/25 16:57 95 01/25/25 16:52 75 20 99/71 L 95 01/25/25 16:52 95 01/25/25 16:43 89 L 01/25/25 16:29 82 01/25/25 16:23 80 20 89 L 01/25/25 16:23 89 17 96/73 L 89 L 01/25/25 15:58 36.4 C L 75 18 91/61 L 93 O2 Del Method O2 Flow Rate 01/25/25 19:03 Nasal Cannula 3 01/25/25 17:30 Nasal Cannula 1 01/25/25 16:57 Nebulizer, T-Piece 01/25/25 16:52 Nasal Cannula 1 01/25/25 16:52 Nasal Cannula 1 01/25/25 16:43 01/25/25 16:29 01/25/25 16:23 Room Air 01/25/25 16:23 Room Air 01/25/25 15:58 Room Air Laboratory Results Lab Results 01/25/25 01/25/25 Range/Units 16:12 18:13 WBC 9.92 (4.8-10.8) K/ul RBC 3.94 L (4.70-6.10) M/uL Hgb 11.3 L (14.0-18.0) g/dl Hct 35.1 L (42.0-52.0) % MCV 89.1 (80.0-100.0) fL MCH 28.7 (25.0-34.0) pg MCHC 32.2 (32.0-36.0) g/dL RDW Std Deviation 40.8 (36.4-46.3) fL RDW Coeff of Aileen 12.6 (11.5-14.5) % Plt Count 196 (130-400) K/uL MPV 11.5 (9.4-12.4) fL Immature Gran % (Auto) 0.4 % Neut % (Auto) 76.1 % Lymph % (Auto) 12.8 % [place] % (Auto) 8.7 % Eos % (Auto) 1.5 % Baso % (Auto) 0.5 % Neut # (Auto) 7.55 H (1.40-6.50) K/uL Lymph # (Auto) 1.27 (1.20-3.40) K/uL [place] # (Auto) 0.86 H (0.11-0.59) K/uL Eos # (Auto) 0.15 (0.00-0.50) K/uL Baso # (Auto) 0.05 (0.00-0.20) K/uL Immature Gran # (Auto) 0.04 (0.01-0.20) K/uL PT 11.3 (9.0-12.0) Seconds INR 1.0 (0.9-1.1) APTT 25 (21-31) Seconds PTT Ratio 0.9 Sodium 144 (136-145) mmol/L Potassium 4.0 (3.5-5.1) mmol/L Chloride 98 (98-107) mmol/L Carbon Dioxide 39 H (21-32) mmol/L Anion Gap 7 (3-11) BUN 30 H (6-23) mg/dl Creatinine 1.10 (0.6-1.4) mg/dl Est Cr Clr Drug Dosing 61.7 ml/min eGFR 69.14 BUN/Creatinine Ratio 27.3 H (10-20) Glucose 145 H (70-99(Fasting)) mg/dl Calcium 9.7 (8.6-10.3) mg/dl Total Bilirubin 0.5 (0.2-1.0) mg/dl AST 18 (13-39) U/L ALT 8 (7-52) U/L Alkaline Phosphatase 110 H (34-104) U/L Troponin I High Sens 45.8 H 39.8 H (0-20) pg/ml B-Natriuretic Peptide 46 (0-100) pg/ml Total Protein 7.5 (6.0-8.3) gm/dl Albumin 4.2 (3.4-5.0) gm/dl Globulin 3.3 (2.5-4.0) gm/dl Albumin/Globulin Ratio 1.3 (0.9-2) Adenovirus (PCR) Not Detected (NotDetected) B. pertussis DNA (PCR) Not Detected (NotDetected) B.parapertussis DNA PCR Not Detected (NotDetected) C. pneumoniae DNA (PCR) Not Detected (NotDetected) Coronavirus OC43 (PCR) Not Detected (NotDetected) Coronavirus HKU1 (PCR) Not Detected (NotDetected) Coronavirus 229E (PCR) Not Detected (NotDetected) SARS-CoV-2 (PCR) Not Detected (NotDetected) Coronavirus NL63 (PCR) Not Detected (NotDetected) Human Metapneumovir PCR Not Detected (NotDetected) Influenza Type A (PCR) Not Detected (NotDetected) Influenza Type B (PCR) Not Detected (NotDetected) M. pneumoniae (PCR) Not Detected (NotDetected) Parainfluenza 1 (PCR) Not Detected (NotDetected) Parainfluenza 2 (PCR) Not Detected (NotDetected) Parainfluenza 3 (PCR) Not Detected (NotDetected) Parainfluenza 4 (PCR) Not Detected (NotDetected) RSV (PCR) Not Detected (NotDetected) Entero/Rhino (PCR) Not Detected (NotDetected) Diagnostic Findings Chest X-Ray 01/25/25 16:03 EXAM: XR chest 1V portable CLINICAL HISTORY: Chest pain, nonspecific. TECHNIQUE: An X-ray image of the chest is obtained in AP projection. COMPARISON: previous CXR dated 11/09/2024. FINDINGS: Pulmonary Parenchyma: Bilateral increased broncho vascular markings likely of congestive process. No evidence of consolidation, or collapse. Small right upper lung zone nodule. decreased the previously seen left lower lung zone veiling. Blunted right costophrenic angle, minimal effusion or pleural thickening. Heart and Mediastinum: Heart size and shape are normal. No mediastinal widening or masses. No hilar or mediastinal lymphadenopathy. Bony Thorax: Right-sided angulation of lower ribs Soft Tissues: Soft tissues overlying the chest wall are unremarkable. IMPRESSION: 1. Bilateral increased broncho vascular markings likely of the congestive process. (unchanged) 2. blunted right costophrenic angle, minimal effusion or pleural thickening. (unchanged) 3. small right upper lung zone nodule. (unchanged) 4. decreased the previously seen left lower lung zone veiling. Electronically signed by Zeke Connell 01-25-2025 5:59 PM Medications Administered Discontinued Medications Albuterol (Albut/Ipratrop 3mg/0.5mg Neb 3 Ml Vial) 3 ml NEB NOW STA; Protocol Stop: 01/25/25 16:41 Last Admin: 01/25/25 16:54 Dose: 3 ml Documented By: JAIDEN Albuterol (Albut/Ipratrop 3mg/0.5mg Neb 3 Ml Vial) 3 ml NEB NOW STA; Protocol Stop: 01/25/25 17:29 Last Admin: 01/25/25 17:56 Dose: 3 ml Documented By: JAIDEN Azithromycin (Azithromycin 250 Mg Tab) 500 mg PO NOW ONE Stop: 01/25/25 18:44 Last Admin: 01/25/25 19:01 Dose: 500 mg Documented By: VELIA Co-signed By: LEONEL Sodium Chloride (Nss) 250 mls @ 999 mls/hr IV .Q16M ONE Stop: 01/25/25 16:30 Last Infusion: 01/25/25 16:58 Dose: Infused Documented By: Admin: 01/25/25 16:50 Dose: 999 mls/hr Documented By: JAIDEN Sodium Chloride (Nss) 1,000 mls @ 125 mls/hr IV .Q8H JENAE Stop: 01/26/25 16:14 Last Admin: 01/25/25 16:50 Dose: 125 mls/hr Documented By: JAIDEN Methylprednisolone (Methylprednisolone 125 Mg/2 Ml Vial) 125 mg IV NOW STA Stop: 01/25/25 16:41 Last Admin: 01/25/25 16:51 Dose: 125 mg Documented By: JAIDEN Supervising Physician Co-Signing Physician Notes I have seen and discussed the case with the collaborating advanced practitioner. I agree with the above H&P. I have reviewed and confirmed the patients medical history, the findings on physical examination, and the patients diagnosis and treatment plan with Cat ESTRADA and agree with the information documented. In short, Mr. Hayes is a 79 yo gentleman with severe copd who is admitted for acute copd exacerbation. patient is compliant with his trelegy. He reports only using O2 when laying down/resting at 3L. Patient reports smoking 1 pack every two days and has no interest in quiting. He states he isnt around anyone to get sick and denies any other concerns outside of SOB and wheezing. He reports notable improvement with neb treatment GENERAL APPEARANCE: AxOx4, chronically ill appearing gentleman HEENT: NC, AT. MMM. EOMI, clear conjunctiva, oropharynx clear. NECK: Supple without lymphadenopathy. No stiffness or restricted ROM. HEART: Normal rate and regular rhythm, normal S1/S1, no m/r/g LUNGS: poor air movement, no expiratory wheezing, tight with inhalation and prolonged exhalation, few rhonchi ABDOMEN: Soft, nontender, nondistended with good bowel sounds heard. BACK: No CVAT, no obvious deformity. EXTREMITIES: Without cyanosis, clubbing or edema. NEUROLOGICAL: Grossly nonfocal. Alert and oriented, moving all 4 extremities. CN not formally tested but appear grossly intact Skin: Warm and dry without any rash. few cat scratches on BLE with no surround erythema #Acute COPD exacerbation continue home inhaler nebs around the clock given improvement and minimal o2 requirement from baseline, will do IV 40 prednisone in am azithromycin 500mg x 3 days mucinex bid consider DME script for home neb treatments flutter valve rest of plan as above I spent a total of 20 minutes coordinating, documenting, and providing care for this patient excluding time spent in the performance of separately billed services. All of the aforementioned completed outside of collaborating with the assigned advanced practitioner for a full treatment plan. I have reviewed the advanced practitioner's documentation, and I agree with, and take responsibility for the plan of care (8) T2DM (type 2 diabetes mellitus) Diabetes mellitus complication status: with other specified complication Diabetes mellitus halfway insulin use: without computer terminal operator use Qualified Code(s): E11.69 - Type 2 diabetes mellitus with other specified complication
--- NOTE | 2025-01-25 20:05 | Emergency Department Note ---
Impression & Plan SOB (shortness of breath), COPD (chronic obstructive pulmonary disease) ED Provider Note NAME: JESSICA MCCANN AGE: 79 SEX: Male INFORMANT: Patient and family ED PROVIDER(S): Anatoliy Butts MD CHIEF COMPLAINT: Shortness of breath PLAN: Disposition: Admitted Outpatient prescription management: None Referral: None MEDICAL DECISION MAKING: Patient presented and was mildly dyspneic. ECG did not show any acute ischemia. Chest x-ray showed chronic changes. Patient was noted to have low O2 saturation at 86% on room air. He did request oxygen. He was given supplemental nasal cannula oxygen and the hypoxia resolved. The patient was started on a DuoNeb and Solu-Medrol. Patient did receive a second nebulizer treatment. His CBC and chemistry panel were unremarkable. Patient's cardiac troponin was mildly elevated. Repeat cardiac troponin was improved. Record review indicates the patient has had a chronic troponin elevation as well as a significant elevation during his coronary event. BioFire testing was negative. Discussed further evaluation and management in the hospital with the patient and he was in agreement. Consultation was made to the [facility] hospitalist service. Patient was evaluated in the ER and admitted for further management. Care/management discussed with: facility service manager, hospitalist Level of care consideration(s): After review of the information above and other included data, I feel the patient requires escalation of care to admission Triage Nursing notes: reviewed and agree them. Vital Signs: reviewed and remarkable for mild hypoxia on room air Additional History obtained from: Family Chronic Medical/Social Conditions affecting care: CAD Prior/ Outside/ External records reviewed: none Differential Diagnosis: Reactive airway disease, pneumonia, pneumothorax, COPD, CHF, infections, cardiac ischemia, pulmonary embolism, musculoskeletal, gastrointestinal, as well as other pathologies. Diagnostics, independently interpreted by me: ECG: Twelve-lead ECG was sinus rhythm with retrograde block 89 bpm. Left axis deviation low voltage QRS. Incomplete right bundle branch block. Cardiac Monitoring: Cardiac monitoring ordered by me: The patient was placed on continuous cardiac monitoring and observed. It revealed a sinus rhythm at 86 bpm. Medical decision rules: none Imaging studies: Chest x-ray. Findings: A chest x-ray was performed and revealed no pneumothorax, effusion, infiltrate, pulmonary edema, free air under the diaphragm, or wide mediastinum. Chronic congestive changes noted. HPI: 79 year old Male arrives for evaluation of shortness of breath. Patient states that he has had symptoms for about 1 week. He did have some diarrhea yesterday and did note some chest discomfort. He does have a history of cardiac stent placement 3 months ago. Patient denies any sick contacts. Patient states he normally wears oxygen only at night. Patient does note chronic tobacco use and is still smoking. Pt denies LOC, headache, fevers, chills, diaphoresis, visual changes, neck pain, nausea, vomiting, abdominal pain, back pain, melena, hematochezia, urinary symptoms, numbness, weakness, lymphadenopathy, rash, or other complaints. PAST MEDICAL HISTORY: See Below, CAD, COPD PAST SURGICAL HISTORY: See Below, SOCIAL HISTORY: See Below, smokes daily HOME MEDICATIONS: See Below ALLERGIES: See Below VITALS: See Below PHYSICAL EXAMINATION: GENERAL: Awake, alert, w mildly dyspneic ell-appearing, in no distress HENT: Normocephalic, atraumatic. Oropharynx unremarkable. EYES: Normal conjunctiva. Sclera non-icteric. NECK: Inspection normal. Non-tender. Supple. No nuchal rigidity. FROM. No masses. RESPIRATORY: Diminished bilaterally with a few wheezes. No rales. Mildly increased respiratory effort. CARDIAC: Normal rate. Normal rhythm. No murmurs. No rubs. Extremities warm and well perfused. Pulses equal. No JVD. GI: Soft, non-distended. No tenderness to palpation. No rebound or guarding. No masses. RECTAL: Deferred. MUSCULOSKELETAL: Atraumatic. Chest examination reveals no tenderness. The back is symmetrical on inspection without obvious abnormality. There is no CVA tenderness to palpation. No joint edema. LOWER EXTREMITIES: Calves are equal size bilaterally and non-tender. No edema. No discoloration. NEURO: Normal sensorium. No sensory or motor deficits noted. SKIN: No rash or jaundice noted. PROCEDURES: none CRITICAL CARE: none OBSERVATION NOTE: none Past Med/Surg History Problem List (Updated 01/25/25 @ 20:05 by Anatoliy Butts MD) COPD (chronic obstructive pulmonary disease) (Acute) SOB (shortness of breath) (Acute) Abnormal CT of the abdomen HAP (hospital-acquired pneumonia) Wound infection following procedure Dyslipidemia, goal LDL below 70 HTN, goal below 130/80 ASCVD (arteriosclerotic cardiovascular disease) Demand ischemia of myocardium Acute on chronic hypoxic respiratory failure Sepsis Medical History Acute non-ST elevation myocardial infarction (NSTEMI) NSTEMI (non-ST elevated myocardial infarction) Stable angina Recent cerebrovascular accident (CVA) Stroke-like symptoms COPD exacerbation Left-sided chest pain Complicated UTI (urinary tract infection) Calculus of kidney Obesity (BMI 30.0-34.9) SANJAY (obstructive sleep apnea) Marijuana use Tobacco abuse Chronic hypoxic respiratory failure COPD (chronic obstructive pulmonary disease) T2DM (type 2 diabetes mellitus) CAD (coronary artery disease) HLD (hyperlipidemia) HTN (hypertension) Surgical History Hx of percutaneous left heart catheterization and 2 stents in 2007 LAD Hx laparoscopic cholecystectomy Hx of right heart catheterization 2 stents in 2005 1st and 2nd diagonal History of nasal surgery Hx of cataract extraction Hx of vasectomy Hx of tonsillectomy Family History Mother Osteoarthritis Coronary heart disease Hypertension Social History Smoking Status: Current every day smoker Tobacco Type: Cigarettes Second Hand Exposure: Yes; Do You Dip or Chew Tobacco: No; Hx Alcohol Use: No Hx Substance Use: Yes Last Used Substance: Hours (ago) Last Used Substance Other:: marijuana Preferred Language: Urdu Communication Ability: Effective Hematology Technologist Required: No Beliefs That Will Affect Care: None Current Living Situation: Family Current Living Situation Comment: Lives with daughter and grad-daughter listed above Feels Safe at Home: Yes Assistive Devices: Cane, Oxygen - at Night and Walker Allergies Allergies Allergy/AdvReac Type Severity Reaction Status Date / Time No Known Allergies Allergy Verified 01/25/25 18:53 Home Meds Home Medications Medication Instructions Recorded Confirmed albuterol sulfate 90 mcg/actuation 2 puff inhalation Q4H PRN 07/21/24 01/25/25 aerosol inhaler cough,sob,wheezing aspirin 81 mg tablet,delayed 81 mg PO DAILY 07/21/24 01/25/25 release atorvastatin 40 mg tablet 40 mg PO DAILY 07/21/24 01/25/25 fluticasone fur. 100 mcg-umeclid 1 inh inhalation QAM 07/21/24 01/25/25 62.5 mcg-vilant 25 mcg inhalat.powder (Trelegy Ellipta) lisinopril 5 mg tablet 5 mg PO DAILY 07/21/24 01/25/25 metformin 500 mg tablet See Rx Instructions .Route .COMPLEX 07/21/24 01/25/25 nitroglycerin 0.4 mg sublingual 0.4 mg sublingual DIRECTED PRN 07/21/24 01/25/25 tablet Chest Pain dexlansoprazole 60 mg 60 mg PO DAILY 10/28/24 01/25/25 capsule,biphase delayed release (Dexilant) roflumilast 500 mcg tablet 0 mcg PO DAILY 10/28/24 01/25/25 (Daliresp) sertraline 25 mg tablet 0 mg PO DAILY 10/28/24 01/25/25 torsemide 20 mg tablet 0 mg PO BID 10/28/24 01/25/25 carvedilol 6.25 mg tablet 6.25 mg PO BID 11/09/24 01/25/25 ticagrelor 90 mg tablet (Brilinta) 90 mg PO BID 11/09/24 01/25/25 hydrocodone 10 mg-acetaminophen 1 tab PO Q6H PRN Pain 01/25/25 01/25/25 325 mg tablet potassium chloride 20 mEq 20 meq PO DAILY PRN When taking 01/25/25 01/25/25 tablet,extended release Torsemide Previous Rx's Medication Instructions Recorded albuterol sulfate 2.5 mg/3 mL 2.5 mg (3 mL) inhalation Q4H PRN 07/23/24 (0.083 %) solution for nebulization sob #360 mL Results & Data (ED) Vital Signs Vital Signs - 24 hr 01/25/25 15:58 01/25/25 16:23 01/25/25 16:23 Temperature 36.4 C L Temperature Source Temporal Artery Scan Pulse Rate 75 80 Pulse Rate [Apical] 89 Pulse Rhythm [Apical] Pulse Strength [Apical] Respiratory Rate 18 17 20 Respiratory Effort / Characteristics Non-Labored Spontaneous Non-Labored Spontaneous SOB on Exertion Respiratory Depth Normal Normal Respiratory Pattern Regular Blood Pressure 91/61 L Blood Pressure [Left Arm] 96/73 L Blood Pressure Mean 71 Blood Pressure Mean [Left Arm] 80 Blood Pressure Position [Left Arm] Semi-fowlers Pulse Oximetry 93 89 L 89 L Oxygen Delivery Method Room Air Room Air Room Air Oxygen Flow Rate Sepsis Recent Fever Within 48 Hours No Sepsis New/Unexplained Change in Mental Status N/A Sepsis Action Taken by Nursing No Action Required Oxygen Flow Rate - Titration Pulse Oximetry Post Tiitration 01/25/25 16:29 01/25/25 16:43 01/25/25 16:52 Temperature Temperature Source Pulse Rate 82 Pulse Rate [Apical] Pulse Rhythm [Apical] Pulse Strength [Apical] Respiratory Rate Respiratory Effort / Characteristics Respiratory Depth Respiratory Pattern Blood Pressure Blood Pressure [Left Arm] Blood Pressure Mean Blood Pressure Mean [Left Arm] Blood Pressure Position [Left Arm] Pulse Oximetry 89 L 95 Oxygen Delivery Method Nasal Cannula Oxygen Flow Rate 1 Sepsis Recent Fever Within 48 Hours Sepsis New/Unexplained Change in Mental Status Sepsis Action Taken by Nursing Oxygen Flow Rate - Titration 1 Pulse Oximetry Post Tiitration 95 01/25/25 16:52 01/25/25 16:57 01/25/25 17:30 Temperature Temperature Source Pulse Rate Pulse Rate [Apical] 75 76 Pulse Rhythm [Apical] Pulse Strength [Apical] Respiratory Rate 20 23 Respiratory Effort / Characteristics Spontaneous Accessory Muscle Use Short of Breath Non-Labored Spontaneous SOB on Exertion Respiratory Depth Normal Normal Respiratory Pattern Regular Blood Pressure Blood Pressure [Left Arm] 99/71 L 122/86 Blood Pressure Mean Blood Pressure Mean [Left Arm] 80 98 Blood Pressure Position [Left Arm] Semi-fowlers Semi-fowlers Pulse Oximetry 95 95 98 Oxygen Delivery Method Nasal Cannula Nebulizer T-Piece Nasal Cannula Oxygen Flow Rate 1 1 Sepsis Recent Fever Within 48 Hours Sepsis New/Unexplained Change in Mental Status Sepsis Action Taken by Nursing Oxygen Flow Rate - Titration 10 Pulse Oximetry Post Tiitration 99 01/25/25 19:03 Temperature Temperature Source Pulse Rate Pulse Rate [Apical] 76 Pulse Rhythm [Apical] Regular Pulse Strength [Apical] Normal Respiratory Rate 16 Respiratory Effort / Characteristics Non-Labored Respiratory Depth Normal Respiratory Pattern Regular Blood Pressure Blood Pressure [Left Arm] 123/74 Blood Pressure Mean Blood Pressure Mean [Left Arm] 90 Blood Pressure Position [Left Arm] Lying Pulse Oximetry 95 Oxygen Delivery Method Nasal Cannula Oxygen Flow Rate 3 Sepsis Recent Fever Within 48 Hours Sepsis New/Unexplained Change in Mental Status Sepsis Action Taken by Nursing Oxygen Flow Rate - Titration Pulse Oximetry Post Tiitration Laboratory Data 01/25/25 16:12 01/25/25 16:12 Lab Results 01/25/25 01/25/25 Range/Units 16:12 18:13 WBC 9.92 (4.8-10.8) K/ul RBC 3.94 L (4.70-6.10) M/uL Hgb 11.3 L (14.0-18.0) g/dl Hct 35.1 L (42.0-52.0) % MCV 89.1 (80.0-100.0) fL MCH 28.7 (25.0-34.0) pg MCHC 32.2 (32.0-36.0) g/dL RDW Std Deviation 40.8 (36.4-46.3) fL RDW Coeff of Aileen 12.6 (11.5-14.5) % Plt Count 196 (130-400) K/uL MPV 11.5 (9.4-12.4) fL Immature Gran % (Auto) 0.4 % Neut % (Auto) 76.1 % Lymph % (Auto) 12.8 % Stafford % (Auto) 8.7 % Eos % (Auto) 1.5 % Baso % (Auto) 0.5 % Neut # (Auto) 7.55 H (1.40-6.50) K/uL Lymph # (Auto) 1.27 (1.20-3.40) K/uL Stafford # (Auto) 0.86 H (0.11-0.59) K/uL Eos # (Auto) 0.15 (0.00-0.50) K/uL Baso # (Auto) 0.05 (0.00-0.20) K/uL Immature Gran # (Auto) 0.04 (0.01-0.20) K/uL PT 11.3 (9.0-12.0) Seconds INR 1.0 (0.9-1.1) APTT 25 (21-31) Seconds PTT Ratio 0.9 Sodium 144 (136-145) mmol/L Potassium 4.0 (3.5-5.1) mmol/L Chloride 98 (98-107) mmol/L Carbon Dioxide 39 H (21-32) mmol/L Anion Gap 7 (3-11) BUN 30 H (6-23) mg/dl Creatinine 1.10 (0.6-1.4) mg/dl Est Cr Clr Drug Dosing 61.7 ml/min eGFR 69.14 BUN/Creatinine Ratio 27.3 H (10-20) Glucose 145 H (70-99(Fasting)) mg/dl Calcium 9.7 (8.6-10.3) mg/dl Total Bilirubin 0.5 (0.2-1.0) mg/dl AST 18 (13-39) U/L ALT 8 (7-52) U/L Alkaline Phosphatase 110 H (34-104) U/L Troponin I High Sens 45.8 H 39.8 H (0-20) pg/ml B-Natriuretic Peptide 46 (0-100) pg/ml Total Protein 7.5 (6.0-8.3) gm/dl Albumin 4.2 (3.4-5.0) gm/dl Globulin 3.3 (2.5-4.0) gm/dl Albumin/Globulin Ratio 1.3 (0.9-2) Adenovirus (PCR) Not Detected (NotDetected) B. pertussis DNA (PCR) Not Detected (NotDetected) B.parapertussis DNA PCR Not Detected (NotDetected) C. pneumoniae DNA (PCR) Not Detected (NotDetected) Coronavirus OC43 (PCR) Not Detected (NotDetected) Coronavirus HKU1 (PCR) Not Detected (NotDetected) Coronavirus 229E (PCR) Not Detected (NotDetected) SARS-CoV-2 (PCR) Not Detected (NotDetected) Coronavirus NL63 (PCR) Not Detected (NotDetected) Human Metapneumovir PCR Not Detected (NotDetected) Influenza Type A (PCR) Not Detected (NotDetected) Influenza Type B (PCR) Not Detected (NotDetected) M. pneumoniae (PCR) Not Detected (NotDetected) Parainfluenza 1 (PCR) Not Detected (NotDetected) Parainfluenza 2 (PCR) Not Detected (NotDetected) Parainfluenza 3 (PCR) Not Detected (NotDetected) Parainfluenza 4 (PCR) Not Detected (NotDetected) RSV (PCR) Not Detected (NotDetected) Entero/Rhino (PCR) Not Detected (NotDetected) Administered Medications Discontinued Medications Albuterol (Albut/Ipratrop 3mg/0.5mg Neb 3 Ml Vial) 3 ml NEB NOW STA; Protocol Stop: 01/25/25 16:41 Last Admin: 01/25/25 16:54 Dose: 3 ml Documented By: JAIDEN Albuterol (Albut/Ipratrop 3mg/0.5mg Neb 3 Ml Vial) 3 ml NEB NOW STA; Protocol Stop: 01/25/25 17:29 Last Admin: 01/25/25 17:56 Dose: 3 ml Documented By: JAIDEN Azithromycin (Azithromycin 250 Mg Tab) 500 mg PO NOW ONE Stop: 01/25/25 18:44 Last Admin: 01/25/25 19:01 Dose: 500 mg Documented By: VELIA Co-signed By: LEONEL Sodium Chloride (Nss) 250 mls @ 999 mls/hr IV .Q16M ONE Stop: 01/25/25 16:30 Last Infusion: 01/25/25 16:58 Dose: Infused Documented By: Admin: 01/25/25 16:50 Dose: 999 mls/hr Documented By: JAIDEN Sodium Chloride (Nss) 1,000 mls @ 125 mls/hr IV .Q8H JENAE Stop: 01/26/25 16:14 Last Admin: 01/25/25 16:50 Dose: 125 mls/hr Documented By: JAIDEN Methylprednisolone (Methylprednisolone 125 Mg/2 Ml Vial) 125 mg IV NOW STA Stop: 01/25/25 16:41 Last Admin: 01/25/25 16:51 Dose: 125 mg Documented By: JAIDEN Imaging Data Radiologist's Impression: Chest X-Ray 01/25/25 16:03 EXAM: XR chest 1V portable CLINICAL HISTORY: Chest pain, nonspecific. TECHNIQUE: An X-ray image of the chest is obtained in AP projection. COMPARISON: previous CXR dated 11/09/2024. FINDINGS: Pulmonary Parenchyma: Bilateral increased broncho vascular markings likely of congestive process. No evidence of consolidation, or collapse. Small right upper lung zone nodule. decreased the previously seen left lower lung zone veiling. Blunted right costophrenic angle, minimal effusion or pleural thickening. Heart and Mediastinum: Heart size and shape are normal. No mediastinal widening or masses. No hilar or mediastinal lymphadenopathy. Bony Thorax: Right-sided angulation of lower ribs Soft Tissues: Soft tissues overlying the chest wall are unremarkable. IMPRESSION: 1. Bilateral increased broncho vascular markings likely of the congestive process. (unchanged) 2. blunted right costophrenic angle, minimal effusion or pleural thickening. (unchanged) 3. small right upper lung zone nodule. (unchanged) 4. decreased the previously seen left lower lung zone veiling. Electronically signed by Zeke Connell 01-25-2025 5:59 PM Discharge Plan Visit Data Chief Complaint: Shortness of Breath/Dyspnea Stated Complaint: SOB ED Provider: Anatoliy Butts Discharge Problem: SOB (shortness of breath), COPD (chronic obstructive pulmonary disease) Forms Stand Alone Forms: [facility] Prescriptions Prescriptions: No Action hydrocodone-acetaminophen 10-325 mg tablet 1 tab PO Q6H PRN (Reason: Pain) potassium chloride 20 mEq tablet extended release 20 meq PO DAILY PRN (Reason: When taking Torsemide) Rx Instructions: Caregiver unsure of this medication at this date/time. atorvastatin 40 mg tablet 40 mg PO DAILY metformin 500 mg tablet See Rx Instructions .ROUTE .COMPLEX Rx Instructions: Take 1000mg by mouth in the morning and 500mg by mouth in the evening. aspirin 81 mg Tablet,Delayed Release (Dr/Ec) 81 mg PO DAILY nitroglycerin 0.4 mg Tablet, Sublingual 0.4 mg sublingual DIRECTED PRN (Reason: Chest Pain) lisinopril 5 mg tablet 5 mg PO DAILY albuterol sulfate 90 mcg/actuation HFA aerosol inhaler 2 puff INHALATION Q4H PRN (Reason: cough,sob,wheezing) Trelegy Ellipta 100-62.5-25 mcg blister with device 1 inh INHALATION QAM Rx Instructions: Caregiver unsure of this medication at this date/time. albuterol sulfate 2.5 mg /3 mL (0.083 %) Solution For Nebulization 2.5 mg inhalation Q4H PRN (Reason: sob) Qty: 360 0RF sertraline 25 mg tablet 0 mg PO DAILY Rx Instructions: Caregiver unsure of this medication at this date/time. Original Directions: 25mg by mouth daily dexlansoprazole [Dexilant] 60 mg capsule,biphase delayed releas 60 mg PO DAILY torsemide 20 mg tablet 0 mg PO BID Rx Instructions: Caregiver unsure of this medication at this date/time. Original Directions: 40mg by mouth twice daily roflumilast [Daliresp] 500 mcg Tablet 0 mcg PO DAILY Rx Instructions: Caregiver unsure of this medication at this date/time. Original Directions: 500mcg by mouth daily carvedilol 6.25 mg tablet 6.25 mg PO BID Brilinta 90 mg tablet 90 mg PO BID Referrals Referrals: Kumar Anders DO [Primary Care Provider] -
[2025-01-25] MEDS: guaiFENesin 600 MG TABCR PO SCH (21:35)
[2025-01-25] MEDS ORDERED: GLUCAGON FOR INJ 1 MG VIAL SQ PRN (21:52)
[2025-01-25] MEDS ORDERED: HYDROcodone/ACETAMINOPHEN 10/325 TAB PO PRN (21:52)
[2025-01-25] MEDS ORDERED: CARBOHYDRATES FOR HYPOGLYCEMIA PO PRN (21:52)
[2025-01-25] MEDS ORDERED: GLUCOSE 40% GEL 15 GM TUBE PO PRN (21:52)
[2025-01-25] MEDS ORDERED: DEXTROSE 50% 50 ML SYRINGE IV PRN (21:52)
[2025-01-25] MEDS ORDERED: GLUCOSE 10 TAB/TUBE PO PRN (21:52)
[2025-01-25] MEDS ORDERED: ACETAMINOPHEN 325 MG TAB PO PRN (21:52)
[2025-01-26] MEDS: INSULIN ASPART PER UNIT CHARGE SC SCH (00:32)
[2025-01-26] MEDS: TICAGRELOR 90 MG TAB PO SCH (00:33)
[2025-01-26] MEDS: TORSEMIDE 20 MG TAB PO SCH (00:34)
[2025-01-26] MEDS: carvediloL 6.25 MG TAB PO SCH (00:39)
[2025-01-26 04:39] LABS: Hematocrit (blood only) 30.1 % (42.0-52.0); Hemoglobin 9.7 g/dl (14.0-18.0); Mean Corpuscular Hemoglobin 28.6 pg (25.0-34.0); Mean Corpuscular Hgb Conc 32.2 g/dL (32.0-36.0); Mean Corpuscular Volume 88.8 fL (80.0-100.0); Mean Platelet Volume 11.4 fL (9.4-12.4); Platelet Count 152 K/uL (130-400); RDW Coefficient of Variation 12.7 % (11.5-14.5); RDW Standard Deviation 40.8 fL (36.4-46.3); Red Blood Count 3.39 M/uL (4.70-6.10); White Blood Count 7.68 K/ul (4.8-10.8)
[2025-01-26 04:46] LABS: BUN Creatinine Ratio 26.1 (10-20); Calcium 8.9 mg/dl (8.6-10.3); Creatinine Clr Calc Pharmacy 57.1 ml/min; Potassium 3.7 mmol/L (3.5-5.1)
[2025-01-26 05:04] LABS: Basophils # (auto) 0.01 K/uL (0.00-0.20); Basophils % (auto) 0.1 %; Eosinophils # (auto) 0.01 K/uL (0.00-0.50); Eosinophils % (auto) 0.1 %; Immature Granulocytes # (auto) 0.03 K/uL (0.01-0.20); Immature Granulocytes % (auto) 0.4 %; Lymphocytes # (auto) 0.38 K/uL (1.20-3.40); Lymphocytes % (auto) 4.9 %; Monocytes # (auto) 0.08 K/uL (0.11-0.59); Neutrophils # (auto) 7.17 K/uL (1.40-6.50); Neutrophils % (auto) 93.5 %; Poikilocytosis Present; Polychromasia 1+
--- NOTE | 2025-01-26 06:36 | Communication Note ---
Date of Service: January 26, 2025 Made aware by RN of H&H drop to 9 from 11 yesterday. No overt bleed as per RN. AP Progressive anemia Possibly dilutional Repeat H&H at 8 AM Hold antiplatelet Rx for now.
[2025-01-26] MEDS: ALBUT/IPRATROP 3MG/0.5MG NEB 3 ML VIAL NEB SCH (07:43)
[2025-01-26 08:16] LABS: Hematocrit (blood only) 31.8 % (42.0-52.0); Hemoglobin 10.6 g/dl (14.0-18.0)
--- NOTE | 2025-01-26 08:37 | Electrocardiogram Report ---
Test Reason : Blood Pressure : */* mmHG Vent. Rate : 89 BPM Atrial Rate : 89 BPM P-R Int : 234 ms QRS Dur : 116 ms QT Int : 372 ms P-R-T Axes : 96 -55 17 degrees QTcB Int : 452 ms Poor data quality, interpretation may be adversely affected Sinus rhythm with 1st degree A-V block Left anterior fascicular block Low voltage QRS Right bundle branch block Possible Old Anterior infarct (cited on or before 28-Oct-2024) Abnormal ECG When compared with ECG of 09-Nov-2024 15:41, No significant change Confirmed by Star Myles ([id number]) on 01/26/2025 8:37:12 AM Referred By: REFERRED SELF Confirmed By: Star Myles
[2025-01-26] MEDS ORDERED: NON-FORMULARY MEDICATION (Fluticasone-Umeclidin-Vilanter [Trelegy Ellipta] 100-62.5-25 mcg INH SCH (09:00)
[2025-01-26] MEDS ORDERED: methylPREDNISolone 10 mg/mL (For Ped Dose < 7mg) IV SCH (09:00)
[2025-01-26] MEDS: ATORVASTATIN 40 MG TAB PO SCH (09:15)
[2025-01-26] MEDS: PANTOprazole 40 MG TAB PO SCH (09:17)
[2025-01-26] MEDS: lisinopril 5 MG TAB PO SCH (09:17)
[2025-01-26] MEDS: ENOXAPARIN INJ 40 MG/0.4 ML SYR SQ SCH (09:17)
[2025-01-26] MEDS: ROFLUMILAST 500 MCG TAB PO SCH (09:17)
[2025-01-26] MEDS: SERTRALINE HCL 50 MG TABLET PO SCH (09:17)
[2025-01-26] MEDS: methylPREDNISolone 40 MG in SYRINGE 0 ML IV SCH ×2 (09:18→18:11)
[2025-01-26] MEDS: FLUTICASONE FUROATE 100MCG 14 PUFFS/INHALER INH SCH (09:18)
[2025-01-26] MEDS: UMECLIDINIUM/VILANTEROL 62.5/25MCG 7 PUFFS/INHALER INH SCH (09:18)
[2025-01-26] MEDS: POTASSIUM CHLORIDE CRTAB 20 MEQ TABCR PO SCH (09:25)
--- NOTE | 2025-01-26 17:21 | Hospitalist Progress Note ---
Date of Service January 26, 2025 Assessment & Plan (1) COPD exacerbation: (2) ASCVD (arteriosclerotic cardiovascular disease): (3) HTN, goal below 130/80: (4) Dyslipidemia, goal LDL below 70: (5) Tobacco abuse: (6) Marijuana use: (7) SANJAY (obstructive sleep apnea): (8) T2DM (type 2 diabetes mellitus): Plan per previous hospitalist notes with addendum: This is a 79 y/o male with severe COPD, CAD s/p stents x 3, DM2, depression, HTN, dyslipidemia, and other history as outlined below who presents to the ED today with cough and increased SOB x one week. Work-up in the ED revealed a normal WBC count at 9.92, negative BioFire, mildly elevated troponin at 45.8, repeat 39.8, which is comparable to last admission. Chest x-ray showed findings unchanged from prior. He was requiring additional O2 per ED provider so pt was referred for admission for further management of presumed COPD exacerbation. No evidence of acute cardiac ischemia at present. #COPD Exacerbation - on baseline O2 of 3L at night and when he lies down to rest - Observe in med telemetry overnight - Continue IV steroids started in the ED - ordered methylprednisolone 40 mg IV daily starting tomorrow, will likely need prednisone taper at d/c - Azithromycin 500 mg daily for three days - DuoNebs QID scheduled and Q2 hrs prn - Continue outpatient COPD medications - Mucinex BID 01/26 Biofire: negative CXR: 1. Bilateral increased broncho vascular markings likely of the congestive process. (unchanged) 2. blunted right costophrenic angle, minimal effusion or pleural thickening. (unchanged) 3. small right upper lung zone nodule. (unchanged) 4. decreased the previously seen left lower lung zone veiling. still on 3L NC increase Solumedrol 40mg to q12h continue Nebs QID continue Azithromycin #ASCVD - denies anginal symptoms at present, troponin stable - Continue outpatient medications including Brilinta, aspirin, statin, and beta- natan #DM2 - Insulin sliding scale - Holding metformin - Diabetic diet - BSG ACHS #Hypertension - Chronic, stable - continue home meds #Dyslipidemia - Chronic, stable - continue statin #GERD - Chronic, stable - continue PPI Code status: Full code DVT Prophylaxis: Lovenox PT/OT evaluation Admission and Anticipated Discharge Date Admission Date: January 25, 2025 Subjective ff up for copd exacerbation, etc seen resting in bed, on 3 L O2 via nasal cannula comfortable, not in distress states he feels improved compared to yesterday breathing is easier still has some productive cough, with white sputum no fever/chills no chest pain, palpitations, dizziness no other symptom Review of Systems Review of Systems: all noted and negative except for above Physical Exam Physical Exam: General- oriented x 3, not in distress, speaks in sentences with no effort or accessory muscle use Eyes- anicteric Neck- no JVD Lungs- (+) mild scattered wheezing bilaterally Heart- normal rate, regular rhythm; no murmurs Abdomen- normal bowel sounds, nondistended, soft, no tenderness Extremities- no pretibial edema, no calf tenderness Neuro- alert, oriented x 3; no gross focal neurologic deficits Skin- warm & dry Results & Data Results & Data Vital Signs (Past 12 Hours) Vital Signs Temp Pulse Pulse Pulse Resp BP BP 01/26/25 15:50 35.9 C L 75 20 108/67 01/26/25 14:36 78 18 01/26/25 13:50 80 01/26/25 12:44 36.3 C L 84 16 106/68 01/26/25 10:27 65 18 01/26/25 09:19 36.9 C 84 20 117/71 01/26/25 09:15 98 H 01/26/25 09:15 01/26/25 08:00 95 H 21 135/82 01/26/25 08:00 135/82 01/26/25 07:17 78 01/26/25 07:00 110/65 01/26/25 07:00 73 20 110/65 01/26/25 06:03 78 16 108/62 01/26/25 05:39 86 18 109/61 01/26/25 05:30 82 21 109/61 Pulse Ox O2 Del Method O2 Flow Rate 01/26/25 15:50 92 Room Air 01/26/25 14:36 98 Nasal Cannula 3 01/26/25 13:50 01/26/25 12:44 95 Room Air 01/26/25 10:27 93 Nasal Cannula 3 01/26/25 09:19 92 Nasal Cannula 2 01/26/25 09:15 01/26/25 09:15 Nasal Cannula 1 01/26/25 08:00 93 Nasal Cannula 1 01/26/25 08:00 01/26/25 07:17 01/26/25 07:00 01/26/25 07:00 91 Nasal Cannula 1 01/26/25 06:03 95 Nasal Cannula 1 01/26/25 05:39 94 Nasal Cannula 1 01/26/25 05:30 94 Nasal Cannula 1 all noted and reviewed including below (8) T2DM (type 2 diabetes mellitus) Diabetes mellitus shelter insulin use: without bed bug exterminator use Diabetes mellitus complication status: with other specified complication Qualified Code(s): E11.69 - Type 2 diabetes mellitus with other specified complication
[2025-01-26] MEDS: AZITHROMYCIN 250 MG TAB PO SCH (20:46)
[2025-01-27] MEDS: ASPIRIN 81 MG ECTAB PO SCH (08:14)
--- NOTE | 2025-01-27 15:31 | Hospitalist Progress Note ---
Date of Service January 27, 2025 Assessment & Plan (1) COPD exacerbation: (2) ASCVD (arteriosclerotic cardiovascular disease): (3) HTN, goal below 130/80: (4) Dyslipidemia, goal LDL below 70: (5) Tobacco abuse: (6) Marijuana use: (7) SANJAY (obstructive sleep apnea): (8) T2DM (type 2 diabetes mellitus): Plan per previous hospitalist notes with addendum: This is a 79 y/o male with severe COPD, CAD s/p stents x 3, DM2, depression, HTN, dyslipidemia, and other history as outlined below who presents to the ED today with cough and increased SOB x one week. Work-up in the ED revealed a normal WBC count at 9.92, negative BioFire, mildly elevated troponin at 45.8, repeat 39.8, which is comparable to last admission. Chest x-ray showed findings unchanged from prior. He was requiring additional O2 per ED provider so pt was referred for admission for further management of presumed COPD exacerbation. No evidence of acute cardiac ischemia at present. #COPD Exacerbation - on baseline O2 of 3L at night and when he lies down to rest - Observe in med telemetry overnight - Continue IV steroids started in the ED - ordered methylprednisolone 40 mg IV daily starting tomorrow, will likely need prednisone taper at d/c - Azithromycin 500 mg daily for three days - DuoNebs QID scheduled and Q2 hrs prn - Continue outpatient COPD medications - Mucinex BID 01/27 Biofire: negative CXR: 1. Bilateral increased broncho vascular markings likely of the congestive process. (unchanged) 2. blunted right costophrenic angle, minimal effusion or pleural thickening. (unchanged) 3. small right upper lung zone nodule. (unchanged) 4. decreased the previously seen left lower lung zone veiling. still on 3L NC (usually Only uses 2 to 3 L of O2 at HS) Continue Solumedrol 40mg to q12h continue Nebs QID continue Azithromycin Possible discharge in 1 to 2 daysWith prednisone taper, completed azithromycin course #ASCVD - denies anginal symptoms at present, troponin stable - Continue outpatient medications including Brilinta, aspirin, statin, and beta- natan #DM2 - Insulin sliding scale - Holding metformin - Diabetic diet - BSG ACHS #Hypertension - Chronic, stable - continue home meds #Dyslipidemia - Chronic, stable - continue statin #GERD - Chronic, stable - continue PPI Code status: Full code DVT Prophylaxis: Lovenox PT/OT evaluation Disposition Lives at home with family Admission and Anticipated Discharge Date Admission Date: January 27, 2025 Subjective Follow-up for COPD exacerbation with hypoxia, acute bronchitis, etc. Seen resting in bed, on 2 L of O2 via nasal cannula States he feels improved compared to yesterday Still has some dyspnea and cough with white sputum No chest pain, fevers or chills No other symptoms Review of Systems Review of Systems: all noted and negative except for above Physical Exam Physical Exam: General- oriented x 3, not in distress, speaks in sentences with no effort or accessory muscle use Eyes- anicteric Neck- no JVD Lungs- Positive mild bilateral wheezes, no crackles,Good air entry bilaterally Heart- normal rate, regular rhythm; no murmurs Abdomen- normal bowel sounds, nondistended, soft, nontender Extremities- no pretibial edema, no calf tenderness Neuro- alert, oriented x 3; no gross focal neurologic deficits Skin- warm & dry Results & Data Results & Data Vital Signs (Past 12 Hours) Vital Signs Temp Pulse Pulse Pulse Resp BP Pulse Ox 01/27/25 15:14 36.4 C L 63 20 100/58 L 96 01/27/25 11:15 36.4 C L 70 20 92/52 L 96 01/27/25 10:58 77 20 93 01/27/25 07:41 60 20 94 01/27/25 07:29 36.3 C L 63 20 117/73 91 01/27/25 07:05 70 01/27/25 04:00 36.5 C 67 18 108/73 93 O2 Del Method O2 Flow Rate 01/27/25 15:14 Nasal Cannula 3 01/27/25 11:15 Nasal Cannula 3 01/27/25 10:58 Nasal Cannula 3 01/27/25 07:41 Nasal Cannula 3 01/27/25 07:29 Nasal Cannula 3 01/27/25 07:05 01/27/25 04:00 Nasal Cannula 3 (8) T2DM (type 2 diabetes mellitus) Diabetes mellitus fpc insulin use: without fpc use Diabetes mellitus complication status: with other specified complication Qualified Code(s): E11.69 - Type 2 diabetes mellitus with other specified complication
[2025-01-28 07:02] LABS: Hematocrit (blood only) 29.5 % (42.0-52.0); Hemoglobin 9.9 g/dl (14.0-18.0); Mean Corpuscular Hgb Conc 33.6 g/dL (32.0-36.0); Mean Corpuscular Volume 89.4 fL (80.0-100.0); Mean Platelet Volume 11.6 fL (9.4-12.4); Platelet Count 183 K/uL (130-400); RDW Coefficient of Variation 12.9 % (11.5-14.5); RDW Standard Deviation 42.2 fL (36.4-46.3); White Blood Count 18.63 K/ul (4.8-10.8)
[2025-01-28 07:18] LABS: BUN Creatinine Ratio 37.9 (10-20); Calcium 8.6 mg/dl (8.6-10.3); Creatinine Clr Calc Pharmacy 58.5 ml/min; Potassium 3.7 mmol/L (3.5-5.1)
[2025-01-28 07:26] LABS: Basophils # (auto) 0.01 K/uL (0.00-0.20); Basophils % (auto) 0.1 %; Immature Granulocytes # (auto) 0.19 K/uL (0.01-0.20); Lymphocytes # (auto) 0.67 K/uL (1.20-3.40); Lymphocytes % (auto) 3.6 %; Monocytes # (auto) 0.77 K/uL (0.11-0.59); Monocytes % (auto) 4.1 %; Neutrophils # (auto) 16.99 K/uL (1.40-6.50); Neutrophils % (auto) 91.2 %; RBC Morphology Unremarkable
[2025-01-28] MEDS: predniSONE 20 MG TAB PO SCH (09:03)
[2025-01-28 11:21] VITALS: BP 96/70; TEMP 95.2
[2025-01-28 14:56] VITALS: RESP 18; O2SAT 92
--- NOTE | 2025-01-28 15:30 | Discharge Summary ---
Discharge Summary Date of Service January 28, 2025 Principal Dx & Hospital Course #1 = Principal Diagnosis (1) COPD exacerbation: (2) ASCVD (arteriosclerotic cardiovascular disease): (3) HTN, goal below 130/80: (4) Dyslipidemia, goal LDL below 70: (5) Tobacco abuse: (6) Marijuana use: (7) SANJAY (obstructive sleep apnea): (8) T2DM (type 2 diabetes mellitus): Plan per previous hospitalist notes with addendum: This is a 79 y/o male with severe COPD, CAD s/p stents x 3, DM2, depression, HTN, dyslipidemia, and other history as outlined below who presents to the ED today with cough and increased SOB x one week. Work-up in the ED revealed a normal WBC count at 9.92, negative BioFire, mildly elevated troponin at 45.8, repeat 39.8, which is comparable to last admission. Chest x-ray showed findings unchanged from prior. He was requiring additional O2 per ED provider so pt was referred for admission for further management of presumed COPD exacerbation. No evidence of acute cardiac ischemia at present. #COPD Exacerbation - on baseline O2 of 3L at night and when he lies down to rest - Observe in med telemetry overnight - Continue IV steroids started in the ED - ordered methylprednisolone 40 mg IV daily starting tomorrow, will likely need prednisone taper at d/c - Azithromycin 500 mg daily for three days - DuoNebs QID scheduled and Q2 hrs prn - Continue outpatient COPD medications - Mucinex BID 01/27 Biofire: negative CXR: 1. Bilateral increased broncho vascular markings likely of the congestive process. (unchanged) 2. blunted right costophrenic angle, minimal effusion or pleural thickening. (unchanged) 3. small right upper lung zone nodule. (unchanged) 4. decreased the previously seen left lower lung zone veiling. still on 3L NC (usually Only uses 2 to 3 L of O2 at HS) Continue Solumedrol 40mg to q12h continue Nebs QID continue Azithromycin Possible discharge in 1 to 2 daysWith prednisone taper, completed azithromycin course #ASCVD - denies anginal symptoms at present, troponin stable - Continue outpatient medications including Brilinta, aspirin, statin, and beta- natan #DM2 - Insulin sliding scale - Holding metformin - Diabetic diet - BSG ACHS #Hypertension - Chronic, stable - continue home meds #Dyslipidemia - Chronic, stable - continue statin #GERD - Chronic, stable - continue PPI Code status: Full code DVT Prophylaxis: Lovenox PT/OT evaluation Disposition Lives at home with family Notes For Next Care Provider This is a 79 y/o male with severe COPD, CAD s/p stents x 3, DM2, depression, HTN, dyslipidemia, and other history as outlined below who presents to the ED today with cough and increased SOB x one week. On medicine, given steroids with slow improvement. Patient has severe COPD and requires oxygen with movement, oxygen at home ordered. On 01/28/2025 patient medically stable for discharge home. Medication Changes From Visit -prednisone Admission HPI Per Admitting Provider This is a 79 y/o male with severe COPD, CAD s/p stents x 3, DM2, depression, HTN, dyslipidemia, and other history as outlined below who presents to the ED today with cough and increased SOB x one week. He reports increased dyspnea over the last week as well as ongoing chronic cough that is productive of moderate amount of sputum. He has been using his rescue inhaler more frequently over the last week as well. He reports chronically using O2 at night for sleep apnea, typically 3L. Also uses at home any time he lies down but does not wear with activity. He continues to smoke (1/2 PPD cigarettes, marijuana) but only in his kitchen away from his oxygen tanks. He has no interest in quitting and denies the need for a nicotine patch. He states that he came in today because his daughters were concerned about his breathing although he does not feel like things are that much worse than his baseline. He notes having diarrhea all day yesterday but none today. His appetite has been decreased. He reports 100 lb weight loss over the last year. Has some chills and hot flashes at times but denies drenching night sweats. No documented fevers. He denies chest pain, leg swelling. He thinks that his medications are the same as when he was discharged from [facility] in November but is unsure. Discharge Exam Gen: A&O 3 NAD HEENT: NCAT, EOMI, not icteric. External ears normal. No rhinorrhea. Moist mucous membranes. Neck: Supple, full range of motion, no observable masses, No meningeal sign. Lungs: No Respiratory distress. poor air movement, no wheezing CV: RRR, no edema. Abdomen: Soft, nondistended, No rebound tenderness. MSK: No joint swelling, no redness. Skin: No rashes, petechiae, lesions. Normal color per patient. Neuro: Normal Gait, Grossly intact. Psych: Appropriate for situation. Updated Medication List Medication Instructions Recorded Confirmed Type albuterol sulfate 90 mcg/actuation 2 puff inhalation Q4H PRN 07/21/24 01/25/25 History aerosol inhaler cough,sob,wheezing aspirin 81 mg tablet,delayed 81 mg PO DAILY 07/21/24 01/25/25 History release fluticasone fur. 100 mcg-umeclid 1 inh inhalation QAM 07/21/24 01/25/25 History 62.5 mcg-vilant 25 mcg inhalat.powder (Trelegy Ellipta) lisinopril 5 mg tablet 5 mg PO DAILY 07/21/24 01/25/25 History metformin 500 mg tablet See Rx Instructions .Route .COMPLEX 07/21/24 01/25/25 History nitroglycerin 0.4 mg sublingual 0.4 mg sublingual DIRECTED PRN 07/21/24 01/25/25 History tablet Chest Pain albuterol sulfate 2.5 mg/3 mL 2.5 mg (3 mL) inhalation Q4H PRN 07/23/24 01/25/25 Rx (0.083 %) solution for nebulization sob #360 mL dexlansoprazole 60 mg 60 mg PO DAILY 10/28/24 01/25/25 History capsule,biphase delayed release (Dexilant) roflumilast 500 mcg tablet 500 mcg PO DAILY 10/28/24 01/25/25 History (Daliresp) sertraline 25 mg tablet 25 mg PO DAILY 10/28/24 01/25/25 History torsemide 20 mg tablet 40 mg PO BID 10/28/24 01/25/25 History carvedilol 6.25 mg tablet 6.25 mg PO BID 11/09/24 01/25/25 History ticagrelor 90 mg tablet (Brilinta) 90 mg PO BID 11/09/24 01/25/25 History atorvastatin 80 mg tablet 80 mg PO DAILY 01/25/25 01/25/25 History hydrocodone 10 mg-acetaminophen 1 tab PO Q6H PRN Pain 01/25/25 01/25/25 History 325 mg tablet potassium chloride 20 mEq 20 meq PO DAILY PRN When taking 01/25/25 01/25/25 History tablet,extended release Torsemide guaifenesin 600 mg tablet, 600 mg PO Q12 PRN congestion #30 01/28/25 Rx extended release 12 hr (Mucinex) tabs prednisone 20 mg tablet 40 mg (2 x 20 mg) PO DAILY 5 days 01/28/25 Rx #10 tabs Hospital Stay Data Consultations 01/25/25 18:49 ED Decision to Admit Stat Pending Results Patient Have Any Pending Studies at Discharge: No Discharge Instructions Given to Patient (Per Discharging Provider) 1. Please follow up with PCP and pulmonology. 2. Please wear oxygen at home as ordered. Total Time Total Time Spent Total Time Spent (In Minutes): I spent a total of 35 minutes in direct patient care, including [id number] time with the patient and/or family, reviewing medical records, ordering and reviewing diagnostic tests, and coordinating care with other healthcare providers. This time includes: history taking, physical examination, medical decision making, counseling, ECG interpretation, imaging interpretation, lab interpretation, orders, and education, excluding time spent in the performance of separately billed services.
[2025-01-28 16:42] VITALS: PULSE 78
== END 2025-01-28 17:16 | disposition home or self-care (01) | DRG 191 ==
LOC: EDINP 15:55 → ED 15:55 → SUATTDRO 19:56 → 2N 21:52 → SUATTDRO 01-27 10:13

== ENCOUNTER 2025-07-11 15:38 | Inpatient (IN) ==
--- NOTE | 2025-07-11 16:04 | Emergency Department Note ---
Impression & Plan Acute hypoxemic respiratory failure, COPD exacerbation, SOB (shortness of breath), Acute hypotension ED Provider Note NAME: JESSICA MCCANN AGE: 80 SEX: M : 1945 ARRIVES VIA: Walk-In INFORMANT: Patient ED PROVIDER(S): Srikanth Mccarthy DO CHIEF COMPLAINT: Cough, congestion, shortness of breath and runny nose HPI: Patient is a 80-year-old male who presents to the ER for upper respiratory symptoms which started over the past couple days with cough, congestion, and runny nose. Shortness of breath started over the past 24 hours. Chronically wears 3 L nasal cannula secondary to history of COPD. Denies any chest pain or belly pain. Admits to diarrhea. No dysuria, urgency or frequency. No belly pain. ADDITIONAL HISTORY OBTAINED: Per HPI Chronic Medical/Social Conditions Affecting Care: Per HPI PAST MEDICAL HISTORY:See Below PAST SURGICAL HISTORY:See Below FAMILY HISTORY:See Below SOCIAL HISTORY:See Below HOME MEDICATIONS:See Below ALLERGIES:See Below VITALS:See Below PHYSICAL EXAMINATION: GENERAL: Sitting up in bed, alert, well appearing, well nourished, no distress, non-toxic EYE EXAM: normal conjunctiva. PERRL and EOM's grossly intact. OROPHARYNX: mucous membranes are moist NECK: supple, no nuchal rigidity, no adenopathy, non-tender LUNGS: Wheezing bilaterally. Normal chest wall mechanics HEART: no murmurs, S1 normal and S2 normal ABDOMEN: abdomen soft, non-tender, normo-active bowel sounds, no masses, no rebound or guarding. UPPER EXTREMITIES: upper extremities are grossly normal. LOWER EXTREMITIES: No pitting edema. NEURO EXAM: Normal sensorium, cranial nerves II-XII grossly intact, normal speech, no gross weakness of arms, no gross weakness of legs. No drift. Finger to nose intact. Gross sensation intact. MEDICAL DECISION MAKING: Patient is a 80-year-old male who presents ER for the above-stated complaint. IV was established and blood work was obtained. He was found to be hypoxic and oxygen was increased from 3 L to 5 L nasal cannula and oxygen increased to 90% on 5 L. He was given hour-long neb treatment and steroids as well as IV Rocephin as he had upper respiratory symptoms and was concern for possible respiratory infection. Blood pressure was in the 80s and he was given IV fluids. Labs showed no significant leukocytosis. Mild anemia 12. VBG with a pH of 7.35 and a CO2 of 70. BMP along with LFTs bilirubin lactic acid was unremarkable. Troponin was slightly elevated. Lipase was normal. Viral panel was negative. Chest x-ray was clean. Patient was updated at bedside and discussed with the hospitalist for further evaluation management treatment. Consults/Care Managements Discussions: Per [facility] Triage Nursing notes reviewed. Limited review of prior medical records performed Vital Signs: reviewed and remarkable for hypoxic and hypotensive Differential diagnosis: Differential diagnosis includes etiologies such as sepsis, UTI, pneumonia, metabolic, electrolyte abnormalities, cardiac sources, intracerebral event, toxicologic, neurological, as well as others were entertained. ER treatment provided: See below Diagnostics interpreted by me include EKG and cardiac monitoring as listed below: -Cardiac Monitoring: An order was placed for continuous cardiac monitoring. The monitor shows a rate of 70 with sinus rhythm. -ECG: Sinus rhythm rate 74 PVCs Left axis Right bundle branch block QTc 466 -Laboratory studies:Interpreted by me as stated above in MDM and shown below. Imaging studies: Xrays: As interpreted by me: Portable AP upright 1 view of the chest shows no focal infiltrate CTs show: none Procedures:none Critical Care: I have personally spent 33 minutes of critical care time in the direct management of this patient. This includes bedside care, interpretation of diagnostic studies, and testing, discussion with consultants, patient, and family members, and other required patient management activities. This 33 minutes is in excess of all separately billable procedures. Past Med/Surg History Problem List (Updated 07/11/25 @ 20:45 by Srikanth Mccarthy DO) Acute hypotension (Acute) Acute hypoxemic respiratory failure (Acute) Abnormal CT scan, chest Encounter for smoking cessation counseling Chronic respiratory failure with hypoxia, on home oxygen therapy COPD exacerbation (Acute) SOB (shortness of breath) (Acute) Dyslipidemia, goal LDL below 70 HTN, goal below 130/80 ASCVD (arteriosclerotic cardiovascular disease) Medical History Chest pain Acute non-ST elevation myocardial infarction (NSTEMI) NSTEMI (non-ST elevated myocardial infarction) Stable angina Recent cerebrovascular accident (CVA) Stroke-like symptoms Left-sided chest pain Complicated UTI (urinary tract infection) Calculus of kidney Obesity (BMI 30.0-34.9) SANJAY (obstructive sleep apnea) Marijuana use Tobacco abuse Chronic hypoxic respiratory failure COPD (chronic obstructive pulmonary disease) T2DM (type 2 diabetes mellitus) CAD (coronary artery disease) HLD (hyperlipidemia) HTN (hypertension) Surgical History Hx of percutaneous left heart catheterization and 2 stents in 2007 LAD Hx laparoscopic cholecystectomy Hx of right heart catheterization 2 stents in 2005 1st and 2nd diagonal History of nasal surgery Hx of cataract extraction Hx of vasectomy Hx of tonsillectomy Family History Mother Osteoarthritis Coronary heart disease Hypertension Social History (Updated 07/11/25 @ 20:31 by Pricilla Mullins PA-C) Smoking Status: Current every day smoker Tobacco Type: Cigarettes Cigarettes Per Day: 0.5ppd; Second Hand Exposure: Yes; Do You Dip or Chew Tobacco: No; Hx Alcohol Use: No Hx Substance Use: Yes Last Used Substance: Hours (ago) Last Used Substance Other:: marijuana Preferred Language: South African Communication Ability: Effective Assistant Real Estate Manager Required: No Beliefs That Will Affect Care: None Current Living Situation: Family Current Living Situation Comment: Lives with daughter and grad-daughter listed above Feels Safe at Home: Yes Assistive Devices: Walker Allergies Allergies Allergy/AdvReac Type Severity Reaction Status Date / Time Penicillins Allergy Intermediate Hives Verified 07/11/25 18:32 pentobarbital Allergy Unknown ON Verified 07/11/25 18:32 [facility] MED LIST Home Meds Home Medications Medication Instructions Recorded Confirmed albuterol sulfate 90 mcg/actuation 2 puff inhalation Q4H PRN 07/21/24 07/11/25 aerosol inhaler cough,sob,wheezing aspirin 81 mg tablet,delayed 81 mg PO DAILY 07/21/24 07/11/25 release fluticasone fur. 100 mcg-umeclid 1 inh inhalation QAM 07/21/24 07/11/25 62.5 mcg-vilant 25 mcg inhalat.powder (Trelegy Ellipta) lisinopril 5 mg tablet 5 mg PO DAILY 07/21/24 07/11/25 metformin 500 mg tablet See Rx Instructions .Route .COMPLEX 07/21/24 07/11/25 nitroglycerin 0.4 mg sublingual 0.4 mg sublingual DIRECTED PRN 07/21/24 07/11/25 tablet Chest Pain dexlansoprazole 60 mg 60 mg PO DAILY 10/28/24 07/11/25 capsule,biphase delayed release (Dexilant) roflumilast 500 mcg tablet 500 mcg PO DAILY 10/28/24 07/11/25 (Daliresp) sertraline 25 mg tablet 25 mg PO DAILY 10/28/24 07/11/25 torsemide 20 mg tablet 40 mg PO BID 10/28/24 07/11/25 carvedilol 6.25 mg tablet 6.25 mg PO BID 11/09/24 07/11/25 ticagrelor 90 mg tablet (Brilinta) 90 mg PO BID 11/09/24 07/11/25 atorvastatin 80 mg tablet 80 mg PO DAILY 01/25/25 07/11/25 hydrocodone 10 mg-acetaminophen 1 tab PO Q6H PRN Pain 01/25/25 07/11/25 325 mg tablet potassium chloride 20 mEq 20 meq PO DAILY PRN When taking 01/25/25 07/11/25 tablet,extended release Torsemide docusate sodium 100 mg capsule 100 mg PO BID 07/11/25 07/11/25 sodium chloride 5 % eye drops 1 drp OPR QID 07/11/25 07/11/25 (Murtaza 128) Previous Rx's Medication Instructions Recorded albuterol sulfate 2.5 mg/3 mL 2.5 mg (3 mL) inhalation Q4H PRN 07/23/24 (0.083 %) solution for nebulization sob #360 mL guaifenesin 600 mg tablet, 600 mg PO Q12 PRN congestion #30 01/28/25 extended release 12 hr (Mucinex) tabs Portable Oxygen #1 ea 04/16/25 nebulizer and compressor #1 ea 04/16/25 Results & Data (ED) Vital Signs Vital Signs - 24 hr 07/11/25 15:42 07/11/25 15:53 07/11/25 15:54 Temperature 36.3 C L Temperature Source Oral Pulse Rate 78 74 Pulse Rate [Apical] Respiratory Rate 19 24 Respiratory Effort / Characteristics Non-Labored Spontaneous Respiratory Depth Normal Respiratory Pattern Regular Blood Pressure 89/59 L 88/59 L Blood Pressure [Right Arm] Blood Pressure Mean 69 63 Blood Pressure Mean [Right Arm] Blood Pressure Position [Right Arm] Pulse Oximetry 85 L 94 87 L Oxygen Delivery Method Room Air Nasal Cannula Oxygen Flow Rate 2 Sepsis Recent Fever Within 48 Hours No Sepsis New/Unexplained Change in Mental Status N/A Sepsis Action Taken by Nursing No Action Required Oxygen Flow Rate - Titration 5 Pulse Oximetry Post Tiitration 94 07/11/25 15:54 07/11/25 15:58 07/11/25 17:25 Temperature Temperature Source Pulse Rate 78 90 Pulse Rate [Apical] Respiratory Rate 22 20 Respiratory Effort / Characteristics Respiratory Depth Respiratory Pattern Blood Pressure 85/51 L 109/66 Blood Pressure [Right Arm] Blood Pressure Mean 61 86 Blood Pressure Mean [Right Arm] Blood Pressure Position [Right Arm] Pulse Oximetry 94 95 93 Oxygen Delivery Method Nasal Cannula Nasal Cannula Oxygen Flow Rate 5 3 Sepsis Recent Fever Within 48 Hours Sepsis New/Unexplained Change in Mental Status Sepsis Action Taken by Nursing Oxygen Flow Rate - Titration Pulse Oximetry Post Tiitration 07/11/25 17:38 07/11/25 18:53 07/11/25 20:26 Temperature Temperature Source Pulse Rate 75 81 Pulse Rate [Apical] 73 Respiratory Rate 20 18 24 Respiratory Effort / Characteristics Respiratory Depth Respiratory Pattern Blood Pressure 106/78 115/82 Blood Pressure [Right Arm] 109/66 Blood Pressure Mean 85 84 Blood Pressure Mean [Right Arm] 80 Blood Pressure Position [Right Arm] Sitting Pulse Oximetry 94 92 91 Oxygen Delivery Method Nasal Cannula Nasal Cannula Nasal Cannula Oxygen Flow Rate 3 3 3 Sepsis Recent Fever Within 48 Hours Sepsis New/Unexplained Change in Mental Status Sepsis Action Taken by Nursing Oxygen Flow Rate - Titration Pulse Oximetry Post Tiitration Laboratory Data 07/11/25 15:54 07/11/25 15:54 Lab Results 07/11/25 07/11/25 07/11/25 Range/Units 15:54 15:55 16:25 WBC 7.88 (4.8-10.8) K/ul RBC 4.53 L (4.70-6.10) M/uL Hgb 12.1 L (14.0-18.0) g/dl POC Hgb 12.6 L (14.0-18.0) g/dl Hct 39.8 L (42.0-52.0) % POC Hct 37 L (42-52) % MCV 87.9 (80.0-100.0) fL MCH 26.7 (25.0-34.0) pg MCHC 30.4 L (32.0-36.0) g/dL RDW Std Deviation 45.1 (36.4-46.3) fL RDW Coeff of Aileen 14.0 (11.5-14.5) % Plt Count 187 (130-400) K/uL MPV 10.8 (9.4-12.4) fL Immature Gran % (Auto) 0.4 % Neut % (Auto) 74.7 % Lymph % (Auto) 13.8 % Clarke % (Auto) 9.3 % Eos % (Auto) 1.3 % Baso % (Auto) 0.5 % Neut # (Auto) 5.89 (1.40-6.50) K/uL Lymph # (Auto) 1.09 L (1.20-3.40) K/uL Clarke # (Auto) 0.73 H (0.11-0.59) K/uL Eos # (Auto) 0.10 (0.00-0.50) K/uL Baso # (Auto) 0.04 (0.00-0.20) K/uL Immature Gran # (Auto) 0.03 (0.01-0.20) K/uL VBG pH 7.35 L (7.36-7.41) VBG pCO2 68 H (38-50) mmHg VBG pO2 < 20 mmHg VBG HCO3 38 mmol/L VBG O2 Saturation < 60.0 % VBG Base Excess 9.2 mEq/L POC Sodium 141 (135-144) mmol/L Sodium 142 (136-145) mmol/L POC Potassium 3.9 (3.3-5.0) mmol/L Potassium 4.0 (3.5-5.1) mmol/L POC Chloride 99 L (101-112) mmol/L Chloride 100 (98-107) mmol/L Carbon Dioxide 35 H (21-32) mmol/L POC Total CO2 30 (24-31) mmol/L Anion Gap 7 (3-11) POC Anion Gap 17.0 (16-25) mmol/L POC BUN 11 (7-18) mg/dl BUN 13 (6-23) mg/dl Creatinine 0.92 (0.6-1.4) mg/dl POC Creatinine 1.0 (0.6-1.3) mg/dl Est Cr Clr Drug Dosing Not Reportable eGFR 85.14 BUN/Creatinine Ratio 14.1 (10-20) Glucose 106 H (70-99(Fasting)) mg/dl POC Glucose (other) 99 (70-99) mg/dl Lactate 1.7 (0.4-2.0) mmol/L Calcium 8.8 (8.6-10.3) mg/dl POC Ioniz Calcium Janki 1.07 L (1.12-1.32) mmol/l Total Bilirubin 0.8 (0.2-1.0) mg/dl AST 17 (13-39) U/L ALT 12 (7-52) U/L Alkaline Phosphatase 140 H (34-104) U/L Troponin I High Sens 21.4 H (0-20) pg/ml Total Protein 6.9 (6.0-8.3) gm/dl Albumin 3.6 (3.4-5.0) gm/dl Globulin 3.3 (2.5-4.0) gm/dl Albumin/Globulin Ratio 1.1 (0.9-2) Lipase 70 (11-82) U/L Procalcitonin 0.03 (0-0.5) ng/ml Adenovirus (PCR) Not Detected (NotDetected) B. pertussis DNA (PCR) Not Detected (NotDetected) B.parapertussis DNA PCR Not Detected (NotDetected) C. pneumoniae DNA (PCR) Not Detected (NotDetected) Coronavirus OC43 (PCR) Not Detected (NotDetected) Coronavirus HKU1 (PCR) Not Detected (NotDetected) Coronavirus 229E (PCR) Not Detected (NotDetected) SARS-CoV-2 (PCR) Not Detected (NotDetected) Coronavirus NL63 (PCR) Not Detected (NotDetected) Human Metapneumovir PCR Not Detected (NotDetected) Influenza Type A (PCR) Not Detected (NotDetected) Influenza Type B (PCR) Not Detected (NotDetected) M. pneumoniae (PCR) Not Detected (NotDetected) Parainfluenza 1 (PCR) Not Detected (NotDetected) Parainfluenza 2 (PCR) Not Detected (NotDetected) Parainfluenza 3 (PCR) Not Detected (NotDetected) Parainfluenza 4 (PCR) Not Detected (NotDetected) RSV (PCR) Not Detected (NotDetected) Entero/Rhino (PCR) Not Detected (NotDetected) 07/11/25 Range/Units 17:50 WBC (4.8-10.8) K/ul RBC (4.70-6.10) M/uL Hgb (14.0-18.0) g/dl POC Hgb (14.0-18.0) g/dl Hct (42.0-52.0) % POC Hct (42-52) % MCV (80.0-100.0) fL MCH (25.0-34.0) pg MCHC (32.0-36.0) g/dL RDW Std Deviation (36.4-46.3) fL RDW Coeff of Aileen (11.5-14.5) % Plt Count (130-400) K/uL MPV (9.4-12.4) fL Immature Gran % (Auto) % Neut % (Auto) % Lymph % (Auto) % Clarke % (Auto) % Eos % (Auto) % Baso % (Auto) % Neut # (Auto) (1.40-6.50) K/uL Lymph # (Auto) (1.20-3.40) K/uL Clarke # (Auto) (0.11-0.59) K/uL Eos # (Auto) (0.00-0.50) K/uL Baso # (Auto) (0.00-0.20) K/uL Immature Gran # (Auto) (0.01-0.20) K/uL VBG pH (7.36-7.41) VBG pCO2 (38-50) mmHg VBG pO2 mmHg VBG HCO3 mmol/L VBG O2 Saturation % VBG Base Excess mEq/L POC Sodium (135-144) mmol/L Sodium (136-145) mmol/L POC Potassium (3.3-5.0) mmol/L Potassium (3.5-5.1) mmol/L POC Chloride (101-112) mmol/L Chloride (98-107) mmol/L Carbon Dioxide (21-32) mmol/L POC Total CO2 (24-31) mmol/L Anion Gap (3-11) POC Anion Gap (16-25) mmol/L POC BUN (7-18) mg/dl BUN (6-23) mg/dl Creatinine (0.6-1.4) mg/dl POC Creatinine (0.6-1.3) mg/dl Est Cr Clr Drug Dosing eGFR BUN/Creatinine Ratio (10-20) Glucose (70-99(Fasting)) mg/dl POC Glucose (other) (70-99) mg/dl Lactate (0.4-2.0) mmol/L Calcium (8.6-10.3) mg/dl POC Ioniz Calcium Janki (1.12-1.32) mmol/l Total Bilirubin (0.2-1.0) mg/dl AST (13-39) U/L ALT (7-52) U/L Alkaline Phosphatase (34-104) U/L Troponin I High Sens 17.3 D (0-20) pg/ml Total Protein (6.0-8.3) gm/dl Albumin (3.4-5.0) gm/dl Globulin (2.5-4.0) gm/dl Albumin/Globulin Ratio (0.9-2) Lipase (11-82) U/L Procalcitonin (0-0.5) ng/ml Adenovirus (PCR) (NotDetected) B. pertussis DNA (PCR) (NotDetected) B.parapertussis DNA PCR (NotDetected) C. pneumoniae DNA (PCR) (NotDetected) Coronavirus OC43 (PCR) (NotDetected) Coronavirus HKU1 (PCR) (NotDetected) Coronavirus 229E (PCR) (NotDetected) SARS-CoV-2 (PCR) (NotDetected) Coronavirus NL63 (PCR) (NotDetected) Human Metapneumovir PCR (NotDetected) Influenza Type A (PCR) (NotDetected) Influenza Type B (PCR) (NotDetected) M. pneumoniae (PCR) (NotDetected) Parainfluenza 1 (PCR) (NotDetected) Parainfluenza 2 (PCR) (NotDetected) Parainfluenza 3 (PCR) (NotDetected) Parainfluenza 4 (PCR) (NotDetected) RSV (PCR) (NotDetected) Entero/Rhino (PCR) (NotDetected) Administered Medications Sodium Chloride (Nss) 1,000 mls @ 80 mls/hr IV .[id number] Stop: 07/12/25 08:14 Last Admin: 07/11/25 20:02 Dose: 80 mls/hr Documented By: ELADIO Discontinued Medications Albuterol (Albut/Ipratrop 3mg/0.5mg Neb 3 Ml Vial) 9 ml NEB NOW STA; Protocol Stop: 07/11/25 16:02 Last Admin: 07/11/25 16:19 Dose: 9 ml Documented By: QGV Sodium Chloride (Nss) 1,000 mls @ 999 mls/hr IV .Q1H1M ONE Stop: 07/11/25 16:54 Last Admin: 07/11/25 18:59 Dose: Not Given Documented By: QGV Sodium Chloride (Nss) 1,000 mls @ 999 mls/hr IV .Q1H1M ONE Stop: 07/11/25 17:00 Last Infusion: 07/11/25 18:17 Dose: Infused Documented By: Admin: 07/11/25 16:19 Dose: 999 mls/hr Documented By: QGV Ceftriaxone Sodium (Rocephin) 2,000 mg in 50 mls @ 100 mls/hr IV NOW STA Stop: 07/11/25 16:29 Last Infusion: 07/11/25 17:44 Dose: Infused Documented By: Admin: 07/11/25 16:51 Dose: 100 mls/hr Documented By: QGV Methylprednisolone (Methylprednisolone 125 Mg/2 Ml Vial) 40 mg IV NOW STA Stop: 07/11/25 16:02 Last Admin: 07/11/25 16:19 Dose: 40 mg Documented By: QGV Imaging Data Radiologist's Impression: Chest X-Ray 07/11/25 15:54 Chest radiograph, one view History: Chest pain Comparison: 01/25/2025 Findings: Single AP view of the chest performed. No focal consolidation or pleural effusion. No pneumothorax. The cardiomediastinal silhouette is within normal limits. Normal pulmonary vascularity. No evidence for lymphadenopathy. No visualized bony or soft tissue abnormality. Impression: Normal chest radiograph Electronically signed by Suman Narvaez 07-11-2025 4:22 PM Discharge Plan Visit Data Chief Complaint: Chest Pain Stated Complaint: CHEST PAIN, SOB, HX HEART PROBLEMS ED Provider: Srikanth Mccarthy Discharge Problem: Acute hypoxemic respiratory failure, COPD exacerbation, SOB (shortness of breath), Acute hypotension Condition: Serious Forms Stand Alone Forms: My [facility] Prescriptions Prescriptions: No Action (DME) nebulizer and compressor Device See Rx Instructions .ROUTE .MEDSUPPLY Qty: 1 0RF Rx Instructions: As directed (DME) Portable Oxygen Misc See Rx Instructions .Route Qty: 1 0RF Rx Instructions: 2L via nc at all times hydrocodone-acetaminophen 10-325 mg tablet 1 tab PO Q6H PRN (Reason: Pain) potassium chloride 20 mEq tablet extended release 20 meq PO DAILY PRN (Reason: When taking Torsemide) Rx Instructions: UNABLE TO VERIFY THIS MEDICATION atorvastatin 80 mg tablet 80 mg PO DAILY guaifenesin [Mucinex] 600 mg Tablet Extended Release 12hr 600 mg PO Q12 PRN (Reason: congestion) Qty: 30 0RF metformin 500 mg tablet See Rx Instructions .ROUTE .COMPLEX Rx Instructions: Take 1000mg by mouth in the morning and 500mg by mouth in the evening. LAST FILLED 01/24/25 FOR 90 DAYS/270 TABS. aspirin 81 mg Tablet,Delayed Release (Dr/Ec) 81 mg PO DAILY nitroglycerin 0.4 mg Tablet, Sublingual 0.4 mg sublingual DIRECTED PRN (Reason: Chest Pain) lisinopril 5 mg tablet 5 mg PO DAILY Rx Instructions: LAST FILLED 01/24/25 FOR 90 DAYS/90 TABS. albuterol sulfate 90 mcg/actuation HFA aerosol inhaler 2 puff INHALATION Q4H PRN (Reason: cough,sob,wheezing) Trelegy Ellipta 100-62.5-25 mcg blister with device 1 inh INHALATION QAM albuterol sulfate 2.5 mg /3 mL (0.083 %) Solution For Nebulization 2.5 mg inhalation Q4H PRN (Reason: sob) Qty: 360 0RF sertraline 25 mg tablet 25 mg PO DAILY Rx Instructions: LAST FILLED 11/04/24 FOR 30 DAYS/30 TABS. dexlansoprazole [Dexilant] 60 mg capsule,biphase delayed releas 60 mg PO DAILY Rx Instructions: UNABLE TO VERIFY THIS MEDICATION torsemide 20 mg tablet 40 mg PO BID Rx Instructions: UNABLE TO VERIFY THIS MEDICATION roflumilast [Daliresp] 500 mcg Tablet 500 mcg PO DAILY Rx Instructions: UNABLE TO VERIFY THIS MEDICATION carvedilol 6.25 mg tablet 6.25 mg PO BID ticagrelor [Brilinta] 90 mg tablet 90 mg PO BID Rx Instructions: LAST FILLED 02/26/25 FOR 30 DAYS/60 TABS. docusate sodium 100 mg capsule 100 mg PO BID sodium chloride [Murtaza 128] 5 % Drops 1 drp OPR QID Referrals Referrals: Kumar Anders DO [Primary Care Provider] -
[2025-07-11 16:08] LABS: Base Excess VBG 9.2 mEq/L; HCO3 VBG 38 mmol/L; Oxygen Saturation VBG < 60.0 %; PCO2 VBG 68 mmHg (38-50); PO2 VBG < 20 mmHg; pH VBG 7.35 (7.36-7.41)
[2025-07-11 16:12] LABS: Hematocrit (blood only) 39.8 % (42.0-52.0); Hemoglobin 12.1 g/dl (14.0-18.0); Immature Granulocytes # (auto) 0.03 K/uL (0.01-0.20); Immature Granulocytes % (auto) 0.4 %; Mean Corpuscular Hemoglobin 26.7 pg (25.0-34.0); Mean Corpuscular Volume 87.9 fL (80.0-100.0); Platelet Count 187 K/uL (130-400); RDW Standard Deviation 45.1 fL (36.4-46.3); Red Blood Count 4.53 M/uL (4.70-6.10); White Blood Count 7.88 K/ul (4.8-10.8)
[2025-07-11] MEDS: ALBUT/IPRATROP 3MG/0.5MG NEB 3 ML VIAL NEB STA (16:19)
[2025-07-11] MEDS: SODIUM CHLORIDE 0.9% 1,000 ML IV ONE ×2 (16:19→18:59)
--- NOTE | 2025-07-11 16:23 | XRay Report ---
Chest radiograph, one view History: Chest pain Comparison: 01/25/2025 Findings: Single AP view of the chest performed. No focal consolidation or pleural effusion. No pneumothorax. The cardiomediastinal silhouette is within normal limits. Normal pulmonary vascularity. No evidence for lymphadenopathy. No visualized bony or soft tissue abnormality. Impression: Normal chest radiograph Electronically signed by Suman Narvaez 07-11-2025 4:22 PM
[2025-07-11 16:30] LABS: Alanine Aminotransferase 12 U/L (7-52); Albumin Globulin Ratio 1.1 (0.9-2); Alkaline Phosphatase 140 U/L (34-104); Anion Gap 7 (3-11); Bilirubin,Total 0.8 mg/dl (0.2-1.0); Blood Urea Nitrogen 13 mg/dl (6-23); Calcium 8.8 mg/dl (8.6-10.3); Carbon Dioxide 35 mmol/L (21-32); Chloride 100 mmol/L (98-107); Globulin 3.3 gm/dl (2.5-4.0); Glucose 106 mg/dl (70-99(Fasting)); Lipase 70 U/L (11-82); Potassium 4.0 mmol/L (3.5-5.1); Sodium 142 mmol/L (136-145); Total Protein 6.9 gm/dl (6.0-8.3)
[2025-07-11] MEDS: cefTRIAXone SODIUM 2,000 MG/50 ML BAG IV STA (16:51)
[2025-07-11 16:58] LABS: Chlamydia pneumoniae PCR Not Detected (NotDetected); Coronavirus 229E PCR Not Detected (NotDetected); Coronavirus CoV-2 (COVID19)PCR Not Detected (NotDetected); Coronavirus HKU1 PCR Not Detected (NotDetected); Coronavirus NL63 PCR Not Detected (NotDetected); Coronavirus OC43PCR Not Detected (NotDetected); Human Metapneumovirus PCR Not Detected (NotDetected); Parainfluenza Virus 1 PCR Not Detected (NotDetected); Parainfluenza Virus 2 PCR Not Detected (NotDetected); Parainfluenza Virus 3 PCR Not Detected (NotDetected); Parainfluenza Virus 4 PCR Not Detected (NotDetected); Respiratory Syncytial VirusPCR Not Detected (NotDetected); Rhinovirus/Enterovirus PCR Not Detected (NotDetected)
--- NOTE | 2025-07-11 18:21 | History & Physical Report ---
Date of Service July 11, 2025 Assessment & Plan (1) Chronic respiratory failure with hypoxia, on home oxygen therapy: (2) COPD exacerbation: Plan: Patient is 80 year old male with PMH COPD, chronic hypoxic respiratory failure on chronic 3L oxygen, CAD (s/p 3 stents 2007 D1/D2/LAD, s/p RCA stent 10/2024), DM II, depression, RBBB, GERD presented to ER with c/o SOB and white productive cough x 5 days. No leukocytosis, lactate: 1.7, procalcitonin: 0.03 Respiratory bio fire panel negative CXR: No acute infiltrate In ER afebrile, P: 78, BP: 89/59, 85% on room air up to 94% on 5 L via nasal cannula In ER given 1L NSS, Rocephin, Solu-Medrol 40 mg IV, albuterol neb Repeat vitals at 17:38, P: 78, BP 109/66, R: 20 94% on 3 L via nasal cannula Chronically on 3 L O2, will continue Solu-Medrol 40 mg every 8 hours Azithromycin DuoNebs, budesonide, formoterol nebs Flutter valve, incentive spirometry, Mucinex It is unclear if patient taking torsemide at home. Plan to hold now #Diarrhea Reported 2 episodes diarrhea daily x 2 days If recurrent diarrhea obtain stool studies Patient is unsure if his home medication. Daughter who assists with his medications is unable to to assist in verification at this time. Will need further clarification tomorrow morning ?Unsure if pt on dexlansoprazole, lisinopril, metformin, potassium, roflumilast, sertraline, torsemide (3) CAD (coronary artery disease): Plan: S/P Stents Continue aspirin, carvedilol, atorvastatin, Brilinta Unclear if still taking Brilinta (last filled in 02/2025) (4) HTN (hypertension): Plan: Was hypotensive initially. Improved with 1L NSS in ER Continue carvedilol with holding parameters. Unclear if patient taking lisinopril And torsemide. Will hold for now (5) HLD (hyperlipidemia): Plan: Continue atorvastatin (6) T2DM (type 2 diabetes mellitus): Plan: A1c: 6.6 on 10/25/2024 Unclear if patient currently taking metformin NovoLog sliding scale per protocol A1c in am #Tobacco Use Smoking cessation recommended Nicotine patch DVT Prophylaxis Lovenox SQ Admit telemetry Full Code as per discussion with pt Follows with Dr Kumar Anders for routine care Pt was seen and care coordinated with Dr Hartman. See addendum I spent a total of 70 minutes reviewing notes, outpatient records, labs, medication, coordinating, documenting and providing care for this patient excluding time spent in the performance of separately billed services and excluding time spent by another provider/QHP. History of Present Illness Chief Complaint: SOB Primary Care Provider: Kumar Anders DO Patient is 80 year old male with PMH COPD, chronic hypoxic respiratory failure on chronic 3L oxygen, CAD (s/p 3 stents 2007 D1/D2/LAD, s/p RCA stent 10/2024), DM II, depression, RBBB, GERD presented to ER with c/o SOB and cough x 5 days. Patient states 5 days ago started with cough productive of white-colored sputum and nasal congestion. He also reports feeling more short of breath than normal. Patient reports he is to wear 3 L oxygen chronically however he primarily just uses it at bedtime. He denies any fever or chills. Denies any ill contacts. Reported 2 episodes diarrhea daily x 2 days. Denies fever/chills, diaphoresis, N/V, melena, hematochezia, BROWN, dizziness, syncope,CP, palpitations, sore throat, abdominal pain, extremity weakness, extremity edema, rashes, urinary symptoms. Allergies Allergy/AdvReac Type Severity Reaction Status Date / Time Penicillins Allergy Intermediate Hives Verified 07/11/25 18:32 pentobarbital Allergy Unknown ON Verified 07/11/25 18:32 3sun MED LIST Home Medications Medication Instructions Recorded Confirmed Type albuterol sulfate 90 mcg/actuation 2 puff inhalation Q4H PRN 07/21/24 07/11/25 History aerosol inhaler cough,sob,wheezing aspirin 81 mg tablet,delayed 81 mg PO DAILY 07/21/24 07/11/25 History release fluticasone fur. 100 mcg-umeclid 1 inh inhalation QAM 07/21/24 07/11/25 History 62.5 mcg-vilant 25 mcg inhalat.powder (Trelegy Ellipta) lisinopril 5 mg tablet 5 mg PO DAILY 07/21/24 07/11/25 History metformin 500 mg tablet See Rx Instructions .Route .COMPLEX 07/21/24 07/11/25 History nitroglycerin 0.4 mg sublingual 0.4 mg sublingual DIRECTED PRN 07/21/24 07/11/25 History tablet Chest Pain albuterol sulfate 2.5 mg/3 mL 2.5 mg (3 mL) inhalation Q4H PRN 07/23/24 07/11/25 Rx (0.083 %) solution for nebulization sob #360 mL dexlansoprazole 60 mg 60 mg PO DAILY 10/28/24 07/11/25 History capsule,biphase delayed release (Dexilant) roflumilast 500 mcg tablet 500 mcg PO DAILY 10/28/24 07/11/25 History (Daliresp) sertraline 25 mg tablet 25 mg PO DAILY 10/28/24 07/11/25 History torsemide 20 mg tablet 40 mg PO BID 10/28/24 07/11/25 History carvedilol 6.25 mg tablet 6.25 mg PO BID 11/09/24 07/11/25 History ticagrelor 90 mg tablet (Brilinta) 90 mg PO BID 11/09/24 07/11/25 History atorvastatin 80 mg tablet 80 mg PO DAILY 01/25/25 07/11/25 History hydrocodone 10 mg-acetaminophen 1 tab PO Q6H PRN Pain 01/25/25 07/11/25 History 325 mg tablet potassium chloride 20 mEq 20 meq PO DAILY PRN When taking 01/25/25 07/11/25 History tablet,extended release Torsemide guaifenesin 600 mg tablet, 600 mg PO Q12 PRN congestion #30 01/28/25 07/11/25 Rx extended release 12 hr (Mucinex) tabs Portable Oxygen #1 ea 04/16/25 07/11/25 Rx nebulizer and compressor #1 ea 04/16/25 07/11/25 Rx docusate sodium 100 mg capsule 100 mg PO BID 07/11/25 07/11/25 History sodium chloride 5 % eye drops 1 drp OPR QID 07/11/25 07/11/25 History (Murtaza 128) Past Med/Surg History Problem List Abnormal CT scan, chest Encounter for smoking cessation counseling Chronic respiratory failure with hypoxia, on home oxygen therapy COPD exacerbation SOB (shortness of breath) (Acute) Dyslipidemia, goal LDL below 70 HTN, goal below 130/80 ASCVD (arteriosclerotic cardiovascular disease) Medical History Chest pain Acute non-ST elevation myocardial infarction (NSTEMI) NSTEMI (non-ST elevated myocardial infarction) Stable angina Recent cerebrovascular accident (CVA) Stroke-like symptoms Left-sided chest pain Complicated UTI (urinary tract infection) Calculus of kidney Obesity (BMI 30.0-34.9) SANJAY (obstructive sleep apnea) Marijuana use Tobacco abuse Chronic hypoxic respiratory failure COPD (chronic obstructive pulmonary disease) T2DM (type 2 diabetes mellitus) CAD (coronary artery disease) HLD (hyperlipidemia) HTN (hypertension) Surgical History Hx of percutaneous left heart catheterization and 2 stents in 2007 LAD Hx laparoscopic cholecystectomy Hx of right heart catheterization 2 stents in 2005 1st and 2nd diagonal History of nasal surgery Hx of cataract extraction Hx of vasectomy Hx of tonsillectomy Family History Mother Osteoarthritis Coronary heart disease Hypertension Social History (Updated 07/11/25 @ 20:31 by Pricilla Mullins PA-C) Smoking Status: Current every day smoker Tobacco Type: Cigarettes Cigarettes Per Day: 0.5ppd; Second Hand Exposure: Yes; Do You Dip or Chew Tobacco: No; Hx Alcohol Use: No Hx Substance Use: Yes Last Used Substance: Hours (ago) Last Used Substance Other:: marijuana Preferred Language: Turkmen Communication Ability: Effective Pipe Smoking Machine Offbearer Required: No Beliefs That Will Affect Care: None Current Living Situation: Family Current Living Situation Comment: Lives with daughter and grad-daughter listed above Feels Safe at Home: Yes Assistive Devices: Walker Review of Systems Review of Systems: All systems reviewed & are unremarkable except as noted in HPI & below Physical Exam Physical Exam: General: no distress, WDWN Head: normocephalic, atraumatic Eyes: conjunctiva non-injected, anicteric ENT: +hard of hearing normal inspection external ears, nose, mucous membranes dry Neck: supple, trachea midline, non-tender Lungs: no respiratory distress, +wheezing throughout, no rhonchi/rales CV: RRR, no pretibial edema Abd: normal BS, soft, non-tender Ext: no cyanosis, no calf tenderness Neuro: A&O x 3, no focal deficits noted, normal affect Skin: warm, dry Results & Data Results & Data Vital Signs (Past 12 Hours) Vital Signs Temp Pulse Pulse Resp BP BP Pulse Ox 07/11/25 17:38 73 20 109/66 94 07/11/25 15:58 78 22 85/51 L 95 07/11/25 15:54 94 07/11/25 15:54 87 L 07/11/25 15:53 74 24 88/59 L 94 07/11/25 15:42 36.3 C L 78 19 89/59 L 85 L O2 Del Method O2 Flow Rate 07/11/25 17:38 Nasal Cannula 3 07/11/25 15:58 07/11/25 15:54 Nasal Cannula 5 07/11/25 15:54 Nasal Cannula 2 07/11/25 15:53 07/11/25 15:42 Room Air Laboratory Results Short CBC 07/11/25 Range/Units 15:54 WBC 7.88 (4.8-10.8) K/ul Hgb 12.1 L (14.0-18.0) g/dl Hct 39.8 L (42.0-52.0) % Plt Count 187 (130-400) K/uL BMP 07/11/25 15:54 Sodium 142 Potassium 4.0 Chloride 100 Carbon Dioxide 35 H BUN 13 Creatinine 0.92 Glucose 106 H Calcium 8.8 Liver Function 07/11/25 Range/Units 15:54 Total Bilirubin 0.8 (0.2-1.0) mg/dl AST 17 (13-39) U/L ALT 12 (7-52) U/L Alkaline Phosphatase 140 H (34-104) U/L Albumin 3.6 (3.4-5.0) gm/dl Diagnostic Findings Chest X-Ray 07/11/25 15:54 Chest radiograph, one view History: Chest pain Comparison: 01/25/2025 Findings: Single AP view of the chest performed. No focal consolidation or pleural effusion. No pneumothorax. The cardiomediastinal silhouette is within normal limits. Normal pulmonary vascularity. No evidence for lymphadenopathy. No visualized bony or soft tissue abnormality. Impression: Normal chest radiograph Electronically signed by Suman Narvaez 07-11-2025 4:22 PM Supervising Physician Co-Signing Physician Notes 80-year-old male with PMH of advanced COPD, chronic hypoxic respiratory failure on 3 L oxygen, CAD, T2DM, depression presents to the ED with complaint of cough with whitish sputum and shortness of breath since Monday. Respiratory pathogen panel and troponin WNL. Patient denies chest pain. CBC fairly WNL, VBG with CO2 retention, BMP fairly WNL. Troponin trended down to normal. Procalcitonin negative. CXR with no acute finding. For COPD exacerbation, Solu-Medrol 40 mg 3 times daily for now taper down as appropriate, azithromycin course, budesonide and formoterol neb, DuoNeb scheduled, as needed levalbuterol Neb, PT OT. On exam: 3 L nasal cannula oxygen, sleepy, woke up to exam, appears elderly/weak/frail/chronically ill, dry mucosa, bilateral wheezing. Rest of the examination as above. I have seen and examined the patient and have discussed the case with the provider above. I agree with the assessment and plan as stated. Total time spent independently: 18 minutes. (6) T2DM (type 2 diabetes mellitus) Diabetes mellitus complication status: with other specified complication Diabetes mellitus trades helper insulin use: without trades helper use Qualified Code(s): E11.69 - Type 2 diabetes mellitus with other specified complication
[2025-07-11] MEDS: SODIUM CHLORIDE 0.9% 1,000 ML IV SCH (20:02)
[2025-07-11 22:18] LABS: Appearance Urine Clear (Clear); Bacteria Urine Automated None Seen (None Seen); Epithelial Cell Urine Auto 0-2 /hpf (0-2); Glucose Urine UA Negative (Negative); RBC Urine Automated 0-2 /hpf (0-2); WBC Urine Automated 0-5 /hpf (0-5)
[2025-07-11] MEDS ORDERED: ONDANSETRON INJ 2 MG/ML 2 ML VIAL IV PRN (23:38)
[2025-07-11] MEDS ORDERED: GLUCAGON FOR INJ 1 MG VIAL SQ PRN (23:38)
[2025-07-11] MEDS ORDERED: GLUCOSE 40% GEL 15 GM TUBE PO PRN (23:38)
[2025-07-11] MEDS ORDERED: GLUCOSE 10 TAB/TUBE PO PRN (23:38)
[2025-07-11] MEDS ORDERED: DEXTROSE 50% 50 ML SYRINGE IV PRN (23:38)
[2025-07-11] MEDS ORDERED: POLYETHYLENE (MIRALAX) 17 GM PACK PO PRN (23:38)
[2025-07-11] MEDS ORDERED: CARBOHYDRATES FOR HYPOGLYCEMIA PO PRN (23:38)
[2025-07-11] MEDS ORDERED: ACETAMINOPHEN 325 MG TAB PO PRN (23:38)
[2025-07-11] MEDS ORDERED: AZITHROMYCIN 500 MG/255 ML BAG IV SCH (23:38)
[2025-07-12] MEDS: ALBUT/IPRATROP 3MG/0.5MG NEB 3 ML VIAL NEB SCH (00:22)
[2025-07-12] MEDS: AZITHROMYCIN 500 MG/255 ML BAG IV SCH (00:34)
[2025-07-12] MEDS: guaiFENesin 600 MG TABCR PO ONE (00:36)
[2025-07-12] MEDS: INSULIN ASPART PER UNIT CHARGE SC SCH (00:36)
[2025-07-12] MEDS: TICAGRELOR 90 MG TAB PO ONE (00:38)
[2025-07-12] MEDS: ENOXAPARIN INJ 40 MG/0.4 ML SYR SQ ONE (00:39)
[2025-07-12] MEDS: NICOTINE 14 MG/24 HR PATCH TD ONE (00:39)
[2025-07-12 05:12] LABS: Hematocrit (blood only) 33.8 % (42.0-52.0); Hemoglobin 10.5 g/dl (14.0-18.0); Mean Corpuscular Hemoglobin 26.6 pg (25.0-34.0); Mean Corpuscular Volume 85.6 fL (80.0-100.0); Platelet Count 148 K/uL (130-400); RDW Standard Deviation 42.9 fL (36.4-46.3); Red Blood Count 3.95 M/uL (4.70-6.10); White Blood Count 6.91 K/ul (4.8-10.8)
[2025-07-12 05:35] LABS: Alanine Aminotransferase 10.0 U/L (7-52); Albumin Globulin Ratio 1.2 (0.9-2); Alkaline Phosphatase 115.0 U/L (34-104); Anion Gap 8.0 (3-11); Bilirubin,Total 0.4 mg/dl (0.2-1.0); Blood Urea Nitrogen 20.0 mg/dl (6-23); Calcium 8.4 mg/dl (8.6-10.3); Carbon Dioxide 27.0 mmol/L (21-32); Chloride 101.0 mmol/L (98-107); Creatinine Clr Calc Pharmacy 72.6 ml/min; Globulin 2.8 gm/dl (2.5-4.0); Glucose 328.0 mg/dl (70-99(Fasting)); Potassium 3.7 mmol/L (3.5-5.1); Sodium 136.0 mmol/L (136-145); Total Protein 6.1 gm/dl (6.0-8.3)
[2025-07-12] MEDS: FORMOTEROL 20 MCG/2 ML VIAL NEB SCH (06:57)
[2025-07-12] MEDS: BUDESONIDE 0.5 MG/2 ML VIAL (PULMICORT) NEB SCH (06:57)
[2025-07-12 07:18] LABS: Hemoglobin A1C 6.7 % (4.5-5.6)
[2025-07-12] MEDS: ATORVASTATIN 40 MG TAB PO SCH (08:26)
[2025-07-12] MEDS: LANTUS PER UNIT CHARGE SQ SCH (08:26)
[2025-07-12] MEDS: ASPIRIN 81 MG ECTAB PO SCH (08:27)
[2025-07-12] MEDS: guaiFENesin 600 MG TABCR PO SCH (08:27)
[2025-07-12] MEDS: TICAGRELOR 90 MG TAB PO SCH (08:27)
[2025-07-12] MEDS: NICOTINE 14 MG/24 HR PATCH TD SCH (08:27)
[2025-07-12] MEDS: REMOVE NICODERM PATCH SCH (08:28)
--- NOTE | 2025-07-12 12:59 | Electrocardiogram Report ---
Test Reason : Blood Pressure : */* mmHG Vent. Rate : 74 BPM Atrial Rate : 74 BPM P-R Int : 242 ms QRS Dur : 130 ms QT Int : 420 ms P-R-T Axes : 25 -66 34 degrees QTcB Int : 466 ms Sinus rhythm with 1st degree A-V block with occasional , and consecutive Premature ventricular comple xes Right bundle branch block Left anterior fascicular block Bifascicular block Abnormal ECG When compared with ECG of 25-Jan-2025 16:08, Fusion complexes are no longer Present Premature ventricular complexes are now Present Right bundle branch block has replaced Incomplete right bundle branch block Minimal criteria for Anterior infarct are no longer Present Confirmed by Howard Levy ([id number]) on 07/12/2025 12:59:17 PM Referred By: Confirmed By: Howard Levy
--- NOTE | 2025-07-12 15:33 | Hospitalist Progress Note ---
Date of Service July 12, 2025 Assessment & Plan (1) Chronic respiratory failure with hypoxia, on home oxygen therapy: (2) COPD exacerbation: Plan: Patient is 80 year old male with PMH COPD, chronic hypoxic respiratory failure on chronic 3L oxygen, CAD (s/p 3 stents 2007 D1/D2/LAD, s/p RCA stent 10/2024), DM II, depression, RBBB, GERD presented to ER with c/o SOB and white productive cough x 5 days. Acute COPD exacerbation Acute on chronic respiratory failure with hypoxia and hypercarbia Chronic oxygen dependency on 3 L at baseline Ongoing tobacco use disorder --BioFire negative --CXR:Normal chest radiograph -- Normal procalcitonin Continue azithromycin, Pulmicort, Perforomist, nebs Pulmonary hygiene with flutter, Mucinex Continue IV Solu-Medrol Supplemental oxygen to maintain saturations 88 to 92% Unclear if patient currently taking torsemide--Hold for now Diarrhea Reported 2 episodes diarrhea daily x 2 days If recurrent diarrhea obtain stool studies Stool studies pending Home medication list Patient unaware of his home medications Will need to confirm with patient's family (Patient is unsure if his home medication. Daughter who assists with his medications is unable to to assist in verification at this time. ?Unsure if pt on dexlansoprazole, lisinopril, metformin, potassium, roflumilast, sertraline, torsemide) Tobacco use disorder Currently not interested to quit Continue nicotine patch (3) CAD (coronary artery disease): Plan: S/P Stents Continue aspirin, carvedilol, atorvastatin, Brilinta Unclear if still taking Brilinta (last filled in 02/2025) (4) HTN (hypertension): Plan: Hypotensive on presentation Blood pressure improved with IV fluids Continue carvedilol Unclear if patient taking lisinopril And torsemide. Will hold for now (5) HLD (hyperlipidemia): Plan: Continue atorvastatin (6) T2DM (type 2 diabetes mellitus): Plan: A1c: 6.7 Unclear if patient currently taking metformin NovoLog sliding scal, basal insulin e per protocol Monitor blood glucose level DVT Px Lovenox SQ CODE STATUS Full code Admission and Anticipated Discharge Date Admission Date: July 11, 2025 Subjective Patient is seen and examined at bedside States less dyspnea, cough today when compared to yesterday Currently not interested to quit smoking Denies any chest pain, nausea, vomiting, abdominal pain, dizziness Review of Systems Review of Systems: All systems reviewed & are unremarkable except as noted in Subjective Physical Exam Physical Exam: Physical Exam: Vitals signs as noted above General Appearance:Moderately built and nourished, no apparent distress, chronic ill-appearing, elderly Head: normocephalic, Atraumatic Eyes: normal inspection, EOMI Neck: supple, Trachea midline Respiratory/Chest: Decreased breath sounds, b/l rhonchi, No accessory muscle use Cardiovascular: S1, S2, No murmur Abdomen/GI:Soft, Non tender, Bowel sounds present Extremities/Musculoskeletal:normal inspection, no edema Neurologic/Psych:AAOX3, grossly no focal neurological deficits ,+ decreased hearing Skin: normal color, warm Results & Data Results & Data Vital Signs (Past 12 Hours) Vital Signs Pulse Pulse Resp BP BP Pulse Ox Pulse Ox 07/12/25 14:51 91 07/12/25 14:41 93 07/12/25 12:10 81 20 93 07/12/25 12:00 84 18 128/82 93 07/12/25 08:30 07/12/25 08:00 80 16 137/85 94 07/12/25 06:57 82 20 95 07/12/25 06:33 86 20 128/86 92 07/12/25 06:00 89 20 139/89 93 07/12/25 05:30 91 H 16 136/92 93 07/12/25 04:31 90 20 116/80 95 07/12/25 03:30 85 20 115/68 94 O2 Del Method O2 Flow Rate O2 Flow Rate 07/12/25 14:51 07/12/25 14:41 3 07/12/25 12:10 Nasal Cannula 3 07/12/25 12:00 Nasal Cannula 3 07/12/25 08:30 Nasal Cannula 3 07/12/25 08:00 Nasal Cannula 3 07/12/25 06:57 Nasal Cannula 3 07/12/25 06:33 Nasal Cannula 3 07/12/25 06:00 Nasal Cannula 3 07/12/25 05:30 07/12/25 04:31 07/12/25 03:30 Laboratory Results Short CBC 07/11/25 07/12/25 Range/Units 15:54 04:28 WBC 7.88 6.91 (4.8-10.8) K/ul Hgb 12.1 L 10.5 L (14.0-18.0) g/dl Hct 39.8 L 33.8 L (42.0-52.0) % Plt Count 187 148 (130-400) K/uL BMP 07/11/25 07/12/25 15:54 04:28 Sodium 142 136 Potassium 4.0 3.7 Chloride 100 101 Carbon Dioxide 35 H 27 BUN 13 20 Creatinine 0.92 1.01 Glucose 106 H 328 H* Calcium 8.8 8.4 L Liver Function 07/11/25 07/12/25 Range/Units 15:54 04:28 Total Bilirubin 0.8 0.4 (0.2-1.0) mg/dl AST 17 15 (13-39) U/L ALT 12 10 (7-52) U/L Alkaline Phosphatase 140 H 115 H (34-104) U/L Albumin 3.6 3.3 L (3.4-5.0) gm/dl Urine 07/11/25 Range/Units 21:48 Urine Color Yellow Urine Appearance Clear (Clear) Urine pH 5.0 (4.5-7.5) Ur Specific [place] 1.011 (1.000-1.030) Urine Protein Negative (Negative) Urine Glucose (UA) Negative (Negative) (6) T2DM (type 2 diabetes mellitus) Diabetes mellitus detention insulin use: without detention use Diabetes mellitus complication status: with other specified complication Qualified Code (s): E11.69 - Type 2 diabetes mellitus with other specified complication
[2025-07-12] MEDS: ENOXAPARIN INJ 40 MG/0.4 ML SYR SQ SCH (20:57)
[2025-07-13 06:07] LABS: Hematocrit (blood only) 33.6 % (42.0-52.0); Hemoglobin 10.6 g/dl (14.0-18.0); Mean Corpuscular Hemoglobin 27.0 pg (25.0-34.0); Mean Corpuscular Volume 85.5 fL (80.0-100.0); Platelet Count 180 K/uL (130-400); RDW Standard Deviation 43.4 fL (36.4-46.3); Red Blood Count 3.93 M/uL (4.70-6.10); White Blood Count 16.35 K/ul (4.8-10.8)
[2025-07-13 06:20] LABS: Base Excess VBG 5.5 mEq/L; HCO3 VBG 32 mmol/L; Oxygen Saturation VBG < 60.0 %; PCO2 VBG 56 mmHg (38-50); PO2 VBG < 20 mmHg; pH VBG 7.37 (7.36-7.41)
[2025-07-13 06:23] LABS: Anion Gap 5.0 (3-11); Blood Urea Nitrogen 22.0 mg/dl (6-23); Calcium 8.8 mg/dl (8.6-10.3); Carbon Dioxide 31.0 mmol/L (21-32); Chloride 105.0 mmol/L (98-107); Creatinine Clr Calc Pharmacy 94.0 ml/min; Glucose 151.0 mg/dl (70-99(Fasting)); Magnesium 2.1 mg/dl (1.7-2.4); Potassium 4.4 mmol/L (3.5-5.1); Sodium 141.0 mmol/L (136-145)
--- NOTE | 2025-07-13 15:24 | Hospitalist Progress Note ---
Date of Service July 13, 2025 Assessment & Plan (1) Chronic respiratory failure with hypoxia, on home oxygen therapy: (2) COPD exacerbation: Plan: Patient is 80 year old male with PMH COPD, chronic hypoxic respiratory failure on chronic 3L oxygen, CAD (s/p 3 stents 2007 D1/D2/LAD, s/p RCA stent 10/2024), DM II, depression, RBBB, GERD presented to ER with c/o SOB and white productive cough x 5 days. Acute COPD exacerbation Acute on chronic respiratory failure with hypoxia and hypercarbia Chronic oxygen dependency on 3 L at baseline Ongoing tobacco use disorder --BioFire negative --CXR:Normal chest radiograph -- Normal procalcitonin Continue azithromycin, Pulmicort, Perforomist, nebs Pulmonary hygiene with flutter, Mucinex Continue IV Solu-Medrol Supplemental oxygen to maintain saturations 88 to 92% Unclear if patient currently taking torsemide--Hold for now Family plans to visit him today to confirm medications Will obtain limited echo given transient chest pain to assess wall motion abnormality Diarrhea Reported 2 episodes diarrhea daily x 2 days If recurrent diarrhea obtain stool studies Stool studies pending No recurrence of diarrhea Home medication list Patient unaware of his home medications Will need to confirm with patient's family (Patient is unsure if his home medication. Daughter who assists with his medications is unable to to assist in verification at this time. ?Unsure if pt on dexlansoprazole, lisinopril, metformin, potassium, roflumilast, sertraline, torsemide) Tobacco use disorder Currently not interested to quit Continue nicotine patch (3) CAD (coronary artery disease): Plan: S/P Stents Continue aspirin, carvedilol, atorvastatin, Brilinta Unclear if still taking Brilinta (last filled in 02/2025) (4) HTN (hypertension): Plan: Hypotensive on presentation Blood pressure improved with IV fluids Continue carvedilol Unclear if patient taking lisinopril And torsemide. Will hold for now (5) HLD (hyperlipidemia): Plan: Continue atorvastatin (6) T2DM (type 2 diabetes mellitus): Plan: A1c: 6.7 Unclear if patient currently taking metformin NovoLog sliding scal, basal insulin e per protocol Monitor blood glucose level DVT Px Lovenox SQ CODE STATUS Full code Admission and Anticipated Discharge Date Admission Date: July 11, 2025 Subjective Patient is seen and examined at bedside Reported transient chest pain to RN Less dyspnea, cough today Saturating low 90s on 3 L supplemental oxygen No other complaints Review of Systems Review of Systems: All systems reviewed & are unremarkable except as noted in Subjective Physical Exam Physical Exam: Physical Exam: Vitals signs as noted above General Appearance:Moderately built and nourished, no apparent distress, chronic ill-appearing, elderly Head: normocephalic, Atraumatic Eyes: normal inspection, EOMI Neck: supple, Trachea midline Respiratory/Chest: Decreased breath sounds, b/l rhonchi, No accessory muscle use Cardiovascular: S1, S2, No murmur Abdomen/GI:Soft, Non tender, Bowel sounds present Extremities/Musculoskeletal:normal inspection, no edema Neurologic/Psych:AAOX3, grossly no focal neurological deficits ,+ decreased hearing Skin: normal color, warm Results & Data Results & Data Vital Signs (Past 12 Hours) Vital Signs Temp Pulse Pulse Pulse Resp BP Pulse Ox 07/13/25 14:11 70 07/13/25 11:59 35.7 C L 67 18 137/76 91 07/13/25 11:57 18 L 68 18 92 07/13/25 08:16 07/13/25 08:01 36.6 C 61 20 134/73 95 07/13/25 07:09 68 18 95 07/13/25 06:58 59 L 07/13/25 03:50 36.4 C L 70 14 135/80 92 O2 Del Method O2 Flow Rate 07/13/25 14:11 07/13/25 11:59 Nasal Cannula 3 07/13/25 11:57 Nasal Cannula 3 07/13/25 08:16 Nasal Cannula 3 07/13/25 08:01 Nasal Cannula 3 07/13/25 07:09 Nasal Cannula 3 07/13/25 06:58 07/13/25 03:50 Nasal Cannula 3 Laboratory Results Short CBC 07/13/25 Range/Units 05:27 WBC 16.35 H (4.8-10.8) K/ul Hgb 10.6 L (14.0-18.0) g/dl Hct 33.6 L (42.0-52.0) % Plt Count 180 (130-400) K/uL BMP 07/13/25 05:27 Sodium 141 Potassium 4.4 Chloride 105 Carbon Dioxide 31 BUN 22 Creatinine 0.78 Glucose 151 H Calcium 8.8 (6) T2DM (type 2 diabetes mellitus) Diabetes mellitus prison insulin use: without marine oil terminal superintendent use Diabetes mellitus complication status: with other specified complication Qualified Code(s): E11.69 - Type 2 diabetes mellitus with other specified complication
[2025-07-14 06:38] LABS: Anion Gap 4.0 (3-11); Blood Urea Nitrogen 19.0 mg/dl (6-23); Calcium 8.4 mg/dl (8.6-10.3); Carbon Dioxide 32.0 mmol/L (21-32); Chloride 105.0 mmol/L (98-107); Creatinine Clr Calc Pharmacy 91.5 ml/min; Glucose 145.0 mg/dl (70-99(Fasting)); Potassium 3.9 mmol/L (3.5-5.1); Sodium 141.0 mmol/L (136-145)
--- NOTE | 2025-07-14 12:29 | Electrocardiogram Report ---
Test Reason : Blood Pressure : */* mmHG Vent. Rate : 63 BPM Atrial Rate : 63 BPM P-R Int : 226 ms QRS Dur : 130 ms QT Int : 452 ms P-R-T Axes : 96 -33 -21 degrees QTcB Int : 462 ms Sinus rhythm with 1st degree A-V block Left axis deviation Right bundle branch block Abnormal ECG When compared with ECG of 11-Jul-2025 15:53, Premature ventricular complexes are no longer Present T wave inversion now evident in Inferior leads Confirmed by Howard Levy ([id number]) on 07/14/2025 12:29:13 PM Referred By: REFERRED SELF Confirmed By: Howard Levy
[2025-07-14] MEDS: LEVALBUTEROL HCL 0.63 MG/3 ML NEB NEB PRN (15:53)
--- NOTE | 2025-07-14 16:30 | Hospitalist Progress Note ---
Date of Service July 14, 2025 Assessment & Plan (1) Chronic respiratory failure with hypoxia, on home oxygen therapy: (2) COPD exacerbation: Plan: Patient is 80 year old male with PMH COPD, chronic hypoxic respiratory failure on chronic 3L oxygen, CAD (s/p 3 stents 2007 D1/D2/LAD, s/p RCA stent 10/2024), DM II, depression, RBBB, GERD presented to ER with c/o SOB and white productive cough x 5 days. Acute COPD exacerbation Acute on chronic respiratory failure with hypoxia and hypercarbia Chronic oxygen dependency on 3 L at baseline Ongoing tobacco use disorder --BioFire negative --CXR:Normal chest radiograph -- Normal procalcitonin Continue azithromycin, Pulmicort, Perforomist, nebs Pulmonary hygiene with flutter, Mucinex Continue IV Solu-Medrol Supplemental oxygen to maintain saturations 88 to 92% Unclear if patient currently taking torsemide--Hold for now Clinically improving Will need 2 step prior to discharge Advised to follow-up with pulmonology as outpatient Diarrhea Reported 2 episodes diarrhea daily x 2 days If recurrent diarrhea obtain stool studies Stool studies pending No recurrence of diarrhea Home medication list Patient unaware of his home medications Will need to confirm with patient's family (Patient is unsure if his home medication. Daughter who assists with his medications is unable to to assist in verification at this time. ?Unsure if pt on dexlansoprazole, lisinopril, metformin, potassium, roflumilast, sertraline, torsemide) Tobacco use disorder Currently not interested to quit Continue nicotine patch (3) CAD (coronary artery disease): Plan: S/P Stents --ECHO: EF 55 to 60%. Left ventricular wall motion normal. Mild mitral regurgitation. Mild aortic root dilatation. Continue aspirin, carvedilol, atorvastatin, Brilinta Unclear if still taking Brilinta (last filled in 02/2025) (4) HTN (hypertension): Plan: Hypotensive on presentation Blood pressure improved with IV fluids Continue carvedilol Unclear if patient taking lisinopril And torsemide. Will hold for now Blood pressure stable today (5) HLD (hyperlipidemia): Plan: Continue atorvastatin (6) T2DM (type 2 diabetes mellitus): Plan: A1c: 6.7 Unclear if patient currently taking metformin NovoLog sliding scale, basal insulin e per protocol Monitor blood glucose level DVT Px Lovenox SQ CODE STATUS Full code Disposition PT OT prior to discharge Admission and Anticipated Discharge Date Admission Date: July 11, 2025 Subjective Patient is seen and examined at bedside Patient states feeling a lot better today Denies any chest pain today Also denies any dyspnea, nausea, vomiting, abdominal pain Review of Systems Review of Systems: All systems reviewed & are unremarkable except as noted in Subjective Physical Exam Physical Exam: Physical Exam: Vitals signs as noted above General Appearance:Moderately built and nourished, no apparent distress, chronic ill-appearing, elderly Head: normocephalic, Atraumatic Eyes: normal inspection, EOMI Neck: supple, Trachea midline Respiratory/Chest: Decreased breath sounds, CTA, No accessory muscle use Cardiovascular: S1, S2, No murmur Abdomen/GI:Soft, Non tender, Bowel sounds present Extremities/Musculoskeletal:normal inspection, no edema Neurologic/Psych:AAOX3, grossly no focal neurological deficits ,+ decreased hearing Skin: normal color, warm Results & Data Results & Data Vital Signs (Past 12 Hours) Vital Signs Temp Pulse Resp BP Pulse Ox O2 Del Method O2 Flow Rate 07/14/25 16:15 36.3 C L 65 20 124/76 88 L Nasal Cannula 3.5 07/14/25 15:53 72 20 90 Nasal Cannula 3 07/14/25 11:57 76 18 89 L Nasal Cannula 3 07/14/25 11:24 36.7 C 68 20 123/76 96 Room Air 07/14/25 09:39 Nasal Cannula 3 07/14/25 08:23 36.5 C 62 18 153/80 H 96 Nasal Cannula 2.5 07/14/25 07:45 63 18 90 Nasal Cannula 3 Laboratory Results [facility] 07/14/25 05:46 Sodium 141 Potassium 3.9 Chloride 105 Carbon Dioxide 32 BUN 19 Creatinine 0.73 Glucose 145 H Calcium 8.4 L (6) T2DM (type 2 diabetes mellitus) Diabetes mellitus senior care insulin use: without senior care use Diabetes mellitus complication status: with other specified complication Qualified Code(s): E11.69 - Type 2 diabetes mellitus with other specified complication
[2025-07-15 07:30] LABS: Anion Gap 5.0 (3-11); Blood Urea Nitrogen 23.0 mg/dl (6-23); Calcium 8.4 mg/dl (8.6-10.3); Carbon Dioxide 29.0 mmol/L (21-32); Chloride 104.0 mmol/L (98-107); Creatinine Clr Calc Pharmacy 85.7 ml/min; Glucose 244.0 mg/dl (70-99(Fasting)); Potassium 4.3 mmol/L (3.5-5.1); Sodium 138.0 mmol/L (136-145)
--- NOTE | 2025-07-15 15:10 | Hospitalist Progress Note ---
Date of Service July 15, 2025 Assessment & Plan (1) Chronic respiratory failure with hypoxia, on home oxygen therapy: (2) COPD exacerbation: Plan: Patient is 80 year old male with PMH COPD, chronic hypoxic respiratory failure on chronic 3L oxygen, CAD (s/p 3 stents 2007 D1/D2/LAD, s/p RCA stent 10/2024), DM II, depression, RBBB, GERD presented to ER with c/o SOB and white productive cough x 5 days. Acute COPD exacerbation Acute on chronic respiratory failure with hypoxia and hypercarbia Chronic oxygen dependency on 3 L at baseline Ongoing tobacco use disorder --BioFire negative --CXR:Normal chest radiograph -- Normal procalcitonin Continue azithromycin, Pulmicort, Perforomist, nebs Pulmonary hygiene with flutter, Mucinex Continue IV Solu-Medrol Supplemental oxygen to maintain saturations 88 to 92% Unclear if patient currently taking torsemide--Hold for now Will need 2 step prior to discharge Advised to follow-up with pulmonology as outpatient Slowly improving Continue current management Not interested in rehab placement Will repeat chest x-ray tomorrow Diarrhea Reported 2 episodes diarrhea daily x 2 days If recurrent diarrhea obtain stool studies Stool studies pending No recurrence of diarrhea Home medication list Patient unaware of his home medications Will need to confirm with patient's family (Patient is unsure if his home medication. Daughter who assists with his medications is unable to to assist in verification at this time. ?Unsure if pt on dexlansoprazole, lisinopril, metformin, potassium, roflumilast, sertraline, torsemide) Tobacco use disorder Currently not interested to quit Continue nicotine patch (3) CAD (coronary artery disease): Plan: S/P Stents --ECHO: EF 55 to 60%. Left ventricular wall motion normal. Mild mitral regurgitation. Mild aortic root dilatation. Continue aspirin, carvedilol, atorvastatin, Brilinta Unclear if still taking Brilinta (last filled in 02/2025) (4) HTN (hypertension): Plan: Hypotensive on presentation Blood pressure improved with IV fluids Continue carvedilol Unclear if patient taking lisinopril And torsemide. Will hold for now Monitor blood pressure (5) HLD (hyperlipidemia): Plan: Continue atorvastatin (6) T2DM (type 2 diabetes mellitus): Plan: A1c: 6.7 Unclear if patient currently taking metformin NovoLog sliding scale, basal insulin e per protocol Monitor blood glucose level DVT Px Lovenox SQ CODE STATUS Full code Disposition Refuses rehab patient prefers to discharge home May benefit from home health Admission and Anticipated Discharge Date Admission Date: July 11, 2025 Subjective Patient is seen and examined at bedside States having transient shortness of breath this morning Also has some cough with clear expectoration No other new complaints today States feeling tired Denies any chest pain, nausea, vomiting, abdominal pain Review of Systems Review of Systems: All systems reviewed & are unremarkable except as noted in Subjective Physical Exam Physical Exam: Physical Exam: Vitals signs as noted above General Appearance:Moderately built and nourished, no apparent distress, chronic ill-appearing, elderly Head: normocephalic, Atraumatic Eyes: normal inspection, EOMI Neck: supple, Trachea midline Respiratory/Chest: Decreased breath sounds, scattered wheezing/rhonchi, No accessory muscle use Cardiovascular: S1, S2, No murmur Abdomen/GI:Soft, Non tender, Bowel sounds present Extremities/Musculoskeletal:normal inspection, no edema Neurologic/Psych:AAOX3, grossly no focal neurological deficits ,+ decreased hearing Skin: normal color, warm Results & Data Results & Data Vital Signs (Past 12 Hours) Vital Signs Temp Pulse Resp BP Pulse Ox O2 Del Method O2 Flow Rate 07/15/25 14:42 36.1 C L 72 38 H 150/91 H 88 L Nasal Cannula 07/15/25 13:40 75 18 92 Nasal Cannula 3 07/15/25 09:00 Nasal Cannula 3 07/15/25 08:03 Nasal Cannula 3 07/15/25 07:53 36.2 C L 73 18 170/90 H 88 L Nasal Cannula 3 07/15/25 07:23 84 18 92 Nasal Cannula 3 07/15/25 03:42 36.3 C L 65 18 175/99 H 88 L Nasal Cannula 4 Laboratory Results [facility] 07/15/25 06:47 Sodium 138 Potassium 4.3 Chloride 104 Carbon Dioxide 29 BUN 23 Creatinine 0.78 Glucose 244 H Calcium 8.4 L (6) T2DM (type 2 diabetes mellitus) Diabetes mellitus nursing home insulin use: without intermission coordinator use Diabetes mellitus complication status: with other specified complication Qualified Co de(s): E11.69 - Type 2 diabetes mellitus with other specified complication
--- NOTE | 2025-07-15 15:35 | XRay Report ---
XR chest 1V portable CLINICAL HISTORY: Hypoxia COMPARISON STUDY: 07/11/2025 FINDINGS: Heart size and pulmonary vasculature are normal. Inspiration is shallow. There is stranding opacity at the right lung base. No other consolidation or pleural effusion. No pneumothorax. Stable old right rib fractures. IMPRESSION: Atelectasis versus early pneumonia right lung base. ACT 112: Negative or not required by law. Electronically signed by: Yifan Levine M.D. 07/15/2025 3:34 PM
[2025-07-15] MEDS: cefTRIAXone SODIUM 2,000 MG/50 ML BAG IV SCH (16:55)
[2025-07-16 08:11] LABS: Hematocrit (blood only) 36.6 % (42.0-52.0); Hemoglobin 11.7 g/dl (14.0-18.0); Mean Corpuscular Hemoglobin 27.2 pg (25.0-34.0); Mean Corpuscular Volume 85.1 fL (80.0-100.0); Platelet Count 184 K/uL (130-400); RDW Standard Deviation 43.1 fL (36.4-46.3); Red Blood Count 4.30 M/uL (4.70-6.10); White Blood Count 11.84 K/ul (4.8-10.8)
[2025-07-16 08:36] LABS: Anion Gap 4.0 (3-11); Blood Urea Nitrogen 24.0 mg/dl (6-23); Calcium 8.4 mg/dl (8.6-10.3); Carbon Dioxide 30.0 mmol/L (21-32); Chloride 106.0 mmol/L (98-107); Creatinine Clr Calc Pharmacy 90.3 ml/min; Glucose 155.0 mg/dl (70-99(Fasting)); Potassium 4.5 mmol/L (3.5-5.1); Sodium 140.0 mmol/L (136-145)
--- NOTE | 2025-07-16 08:42 | XRay Report ---
EXAM: XR chest 1V portable CLINICAL HISTORY: Hypoxia TECHNIQUE: An X-ray image of the chest is obtained in AP projection. 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 FINDINGS: Pulmonary Parenchyma: Well defined homogeneous opacities noted along the right lateral chest wall, causes blunting of right costophrenic angle - suggestive of right sided pleural effusion. Mild atelectasis noted involving right basal segment. Rest of both lungs are clear. Heart and Mediastinum: Heart size and shape are normal. No mediastinal widening or masses. No hilar or mediastinal lymphadenopathy. Bony Thorax: Bony thorax appears intact without fractures or deformities. Soft Tissues: Soft tissues overlying the chest wall are unremarkable. IMPRESSION: Well defined homogeneous opacities noted along the right lateral chest wall, causes blunting of right costophrenic angle - suggestive of right sided pleural effusion. -increased Mild atelectasis noted involving right basal segment.-stable. No other new interval abnormality since prior study. Electronically signed by Madhu Gonzalez 07-16-2025 08:41 AM
[2025-07-16] MEDS ORDERED: predniSONE 20 MG TAB PO SCH (11:30)
--- NOTE | 2025-07-16 14:19 | Hospitalist Progress Note ---
Date of Service July 16, 2025 Assessment & Plan (1) Chronic respiratory failure with hypoxia, on home oxygen therapy: (2) COPD exacerbation: Plan: Per previous attending w/ addendum: Patient is 80 year old male with PMH COPD, chronic hypoxic respiratory failure on chronic 3L oxygen, CAD (s/p 3 stents 2007 D1/D2/LAD, s/p RCA stent 10/2024), DM II, depression, RBBB, GERD presented to ER with c/o SOB and white productive cough x 5 days. Acute COPD exacerbation Acute on chronic respiratory failure with hypoxia and hypercarbia Chronic oxygen dependency on 3 L at baseline Ongoing tobacco use disorder --BioFire negative --CXR:Normal chest radiograph -- Normal procalcitonin Continue azithromycin, Pulmicort, Perforomist, nebs Pulmonary hygiene with flutter, Mucinex Continue IV Solu-Medrol Supplemental oxygen to maintain saturations 88 to 92% Unclear if patient currently taking torsemide-- was held during hospital stay - now developing pl. effusion and lasix given (07/16) Will need 2 step prior to discharge Advised to follow-up with pulmonology as outpatient Slowly improving Continue current management Not interested in rehab placement repeat chest x-ray w/ small pl. effusion Diarrhea previously Reported 2 episodes diarrhea daily x 2 days If recurrent diarrhea obtain stool studies Stool studies pending No recurrence of diarrhea Home medication list Patient unaware of his home medications Will need to confirm with patient's family (Patient is unsure if his home medication. Daughter who assists with his medications is unable to to assist in verification at this time. ?Unsure if pt on dexlansoprazole, lisinopril, metformin, potassium, roflumilast, sertraline, torsemide) Tobacco use disorder Currently not interested to quit Continue nicotine patch (3) CAD (coronary artery disease): Plan: S/P Stents --ECHO: EF 55 to 60%. Left ventricular wall motion normal. Mild mitral regurgitation. Mild aortic root dilatation. Continue aspirin, carvedilol, atorvastatin, Brilinta Unclear if still taking Brilinta (last filled in 02/2025) (4) HTN (hypertension): Plan: Hypotensive on presentation Blood pressure improved with IV fluids Continue carvedilol Unclear if patient taking lisinopril And torsemide. Held during this admission Monitor blood pressure (5) HLD (hyperlipidemia): Plan: Continue atorvastatin (6) T2DM (type 2 diabetes mellitus): Plan: A1c: 6.7 Unclear if patient currently taking metformin NovoLog sliding scale, basal insulin e per protocol Monitor blood glucose level DVT Px Lovenox SQ CODE STATUS Full code Disposition Refuses rehab patient prefers to discharge home May benefit from home health Admission and Anticipated Discharge Date Admission Date: July 11, 2025 Subjective Patient seen in follow up Feels improved today and asks about going home Can't verify what medications he is using some cough with clear expectoration Denies any chest pain, nausea, vomiting, abdominal pain Review of Systems Review of Systems: All systems reviewed & are unremarkable except as noted in Subjective Physical Exam Physical Exam: General Appearance:Moderately built and nourished, no apparent distress, chronic ill-appearing, elderly Head: normocephalic, Atraumatic Eyes: normal inspection, EOMI Neck: supple Respiratory/Chest: Decreased breath sounds, minimal scattered wheezing/rhonchi, No accessory muscle use Cardiovascular: S1, S2, No murmur Abdomen/GI:Soft, Non tender, Bowel sounds present Extremities/Musculoskeletal:normal inspection, no edema Neurologic/Psych:AAOX3, grossly no focal neurological deficits ,+ decreased hearing Skin: normal color, warm Results & Data Results & Data Vital Signs (Past 12 Hours) Vital Signs Temp Pulse Pulse Resp BP BP Pulse Ox 07/16/25 12:36 69 16 91 07/16/25 10:47 36.5 C 75 20 154/88 H 89 L 07/16/25 10:25 07/16/25 10:13 97 H 07/16/25 07:33 179/101 H 07/16/25 07:32 36.3 C L 73 18 176/116 H 95 07/16/25 07:21 73 18 93 07/16/25 03:28 36.5 C 68 18 163/87 H 92 O2 Del Method O2 Flow Rate 07/16/25 12:36 Nasal Cannula 4 07/16/25 10:47 Nasal Cannula 4 07/16/25 10:25 Nasal Cannula 3 07/16/25 10:13 07/16/25 07:33 07/16/25 07:32 Nebulizer 07/16/25 07:21 Nasal Cannula 4 07/16/25 03:28 Nasal Cannula 3 Laboratory Results 07/16/25 07/16/25 07/16/25 Range/Units 12:03 07:54 07:18 WBC 11.84 H (4.8-10.8) K/ul RBC 4.30 L (4.70-6.10) M/uL Hgb 11.7 L (14.0-18.0) g/dl Hct 36.6 L (42.0-52.0) % MCV 85.1 (80.0-100.0) fL MCH 27.2 (25.0-34.0) pg MCHC 32.0 (32.0-36.0) g/dL RDW Std Deviation 43.1 (36.4-46.3) fL RDW Coeff of Aileen 13.9 (11.5-14.5) % Plt Count 184 (130-400) K/uL MPV 11.5 (9.4-12.4) fL Sodium 140 (136-145) mmol/L Potassium 4.5 (3.5-5.1) mmol/L Chloride 106 (98-107) mmol/L Carbon Dioxide 30 (21-32) mmol/L Anion Gap 4 (3-11) BUN 24 H (6-23) mg/dl Creatinine 0.74 (0.6-1.4) mg/dl Est Cr Clr Drug Dosing 90.3 ml/min eGFR 92.74 BUN/Creatinine Ratio 32.4 H (10-20) Glucose 155 H (70-99(Fasting)) mg/dl POC Glucose 156 H 137 H (70-99) mg/dl Calcium 8.4 L (8.6-10.3) mg/dl Procalcitonin < 0.02 (0-0.5) ng/ml 07/15/25 07/15/25 Range/Units 20:38 17:15 WBC (4.8-10.8) K/ul RBC (4.70-6.10) M/uL Hgb (14.0-18.0) g/dl Hct (42.0-52.0) % MCV (80.0-100.0) fL MCH (25.0-34.0) pg MCHC (32.0-36.0) g/dL RDW Std Deviation (36.4-46.3) fL RDW Coeff of Aileen (11.5-14.5) % Plt Count (130-400) K/uL MPV (9.4-12.4) fL Sodium (136-145) mmol/L Potassium (3.5-5.1) mmol/L Chloride (98-107) mmol/L Carbon Dioxide (21-32) mmol/L Anion Gap (3-11) BUN (6-23) mg/dl Creatinine (0.6-1.4) mg/dl Est Cr Clr Drug Dosing ml/min eGFR BUN/Creatinine Ratio (10-20) Glucose (70-99(Fasting)) mg/dl POC Glucose 199 H 169 H (70-99) mg/dl Calcium (8.6-10.3) mg/dl Procalcitonin (0-0.5) ng/ml Medications Administered Current Inpatient Medications Acetaminophen (Acetaminophen 325 Mg Tab) 650 mg PO Q4H PRN PRN Reason: Pain or Fever Stop: 08/10/25 23:37 Albuterol (Albut/Ipratrop 3mg/0.5mg Neb 3 Ml Vial) 3 ml NEB Q6R JENAE; Protocol Stop: 08/10/25 23:37 Last Admin: 07/16/25 12:35 Dose: 3 ml Aspirin (Aspirin 81 Mg Ectab) 81 mg PO DAILY JENAE Stop: 08/11/25 08:59 Last Admin: 07/16/25 07:58 Dose: 81 mg Atorvastatin Calcium (Atorvastatin 40 Mg Tab) 80 mg PO DAILY JENAE Stop: 08/11/25 08:59 Last Admin: 07/16/25 07:58 Dose: 80 mg Budesonide (Budesonide 0.5 Mg/2 Ml Vial (Pulmicort)) 0.5 mg NEB BIDR JENAE Stop: 08/11/25 06:59 Last Admin: 07/16/25 07:19 Dose: 0.5 mg Carvedilol (Carvedilol 6.25 Mg Tab) 6.25 mg PO BID JENAE Stop: 08/11/25 08:59 Last Admin: 07/16/25 07:59 Dose: 6.25 mg Dextrose (Dextrose 50% 50 Ml Syringe) 25 - 50 ml IV UD PRN; Protocol PRN Reason: Hypoglycemia Protocol Stop: 08/10/25 23:37 Enoxaparin Sodium (Enoxaparin Inj 40 Mg/0.4 Ml Syr) 40 mg SQ Q24H JENAE Stop: 08/11/25 20:59 Last Admin: 07/15/25 20:38 Dose: 40 mg Formoterol Fumarate (Formoterol 20 Mcg/2 Ml Vial) 20 mcg NEB BIDR JENAE Stop: 08/11/25 06:59 Last Admin: 07/16/25 07:19 Dose: 20 mcg Furosemide (Furosemide Inj 20 Mg/2 Ml Vial) 20 mg IV ONE ONE Stop: 07/16/25 14:18 Glucagon (Glucagon For Inj 1 Mg Vial) 1 mg SQ UD PRN; Protocol PRN Reason: Hypoglycemia Protocol Stop: 08/10/25 23:37 Glucose (Glucose 40% Gel 15 Gm Tube) 15 - 30 gm PO UD PRN; Protocol PRN Reason: Hypoglycemia Protocol Stop: 08/10/25 23:37 Glucose (Glucose 10 Tab/Tube) 4 - 8 tab PO UD PRN; Protocol PRN Reason: Hypoglycemia Protocol Stop: 08/10/25 23:37 Guaifenesin (Guaifenesin 600 Mg Tabcr) 1,200 mg PO Q12 JENAE Stop: 08/11/25 08:59 Last Admin: 07/16/25 07:58 Dose: 1,200 mg Azithromycin (Zithromax) 500 mg in 255 mls @ 127.5 mls/hr IV Q24H JENAE Stop: 07/16/25 23:44 Last Infusion: 07/16/25 01:34 Dose: Infused Methylprednisolone 40 mg/ (Syringe) 0.64 mls @ 1.5 mls/min IV BID JENAE Stop: 08/14/25 20:59 Last Admin: 07/16/25 07:59 Dose: 1.5 mls/min Ceftriaxone Sodium (Rocephin) 2,000 mg in 50 mls @ 100 mls/hr IV Q24H JENAE Stop: 07/20/25 15:59 Last Infusion: 07/15/25 18:10 Dose: Infused Insulin Aspart (Insulin Aspart Per Unit Charge) 0 units SC ACHS JENAE Stop: 08/10/25 23:37 Last Admin: 07/16/25 13:11 Dose: 5 units Insulin Glargine (Lantus Per Unit Charge) 5 units SQ BID JENAE Stop: 08/11/25 08:59 Last Admin: 07/16/25 08:58 Dose: 5 units Levalbuterol HCl (Levalbuterol Hcl 0.63 Mg/3 Ml Neb) 0.63 mg NEB Q6H PRN; Protocol PRN Reason: Shortness Of Breath Or Wheezing Stop: 08/12/25 11:30 Last Admin: 07/14/25 15:53 Dose: 0.63 mg Miscellaneous (Remove Nicoderm Patch) 1 each N/A DAILY@0859 [facility] Stop: 08/11/25 08:58 Last Admin: 07/16/25 08:00 Dose: 1 each Miscellaneous (Carbohydrates For Hypoglycemia ) 15 - 30 gm PO UD PRN PRN Reason: Hypoglycemia Protocol Stop: 08/10/25 23:37 Nicotine (Nicotine 14 Mg/24 Hr Patch) 1 patch TD QAM [facility] Stop: 08/11/25 08:59 Last Admin: 07/16/25 07:57 Dose: 1 patch Ondansetron HCl (Ondansetron Inj 2 Mg/Ml 2 Ml Vial) 4 mg IV Q6H PRN PRN Reason: Nausea Stop: 08/10/25 23:37 Pantoprazole Sodium (Pantoprazole 40 Mg Tab) 40 mg PO QAM [facility] Stop: 08/11/25 08:59 Last Admin: 07/16/25 07:59 Dose: 40 mg Polyethylene Glycol (Polyethylene (Miralax) 17 Gm Pack) 17 gm PO DAILY PRN PRN Reason: Constipation Stop: 08/10/25 23:37 Ticagrelor (Ticagrelor 90 Mg Tab) 90 mg PO BID [facility] Stop: 08/11/25 08:59 Last Admin: 07/16/25 07:58 Dose: 90 mg (6) T2DM (type 2 diabetes mellitus) Diabetes mellitus complication status: with other specified complication Diabetes mellitus chcf insulin use: without moth exterminator use Qualified Code(s): E11.69 - Type 2 diabetes mellitus with other specified complication
[2025-07-16] MEDS: FUROSEMIDE INJ 20 MG/2 ML VIAL IV ONE ×3 (14:48→19:52)
[2025-07-16] MEDS: MAGNESIUM OXIDE 400 MG TAB PO SCH (19:43)
[2025-07-17 06:25] LABS: Hematocrit (blood only) 38.7 % (42.0-52.0); Hemoglobin 12.2 g/dl (14.0-18.0); Mean Corpuscular Hemoglobin 26.2 pg (25.0-34.0); Mean Corpuscular Volume 83.0 fL (80.0-100.0); Platelet Count 215 K/uL (130-400); RDW Standard Deviation 42.9 fL (36.4-46.3); Red Blood Count 4.66 M/uL (4.70-6.10); White Blood Count 13.43 K/ul (4.8-10.8)
[2025-07-17 07:03] LABS: Anion Gap 6.0 (3-11); Blood Urea Nitrogen 29.0 mg/dl (6-23); Calcium 8.2 mg/dl (8.6-10.3); Carbon Dioxide 30.0 mmol/L (21-32); Chloride 105.0 mmol/L (98-107); Creatinine Clr Calc Pharmacy 85.7 ml/min; Glucose 126.0 mg/dl (70-99(Fasting)); Magnesium 2.4 mg/dl (1.7-2.4); Potassium 4.3 mmol/L (3.5-5.1); Sodium 141.0 mmol/L (136-145)
[2025-07-17] MEDS: FUROSEMIDE INJ 20 MG/2 ML VIAL IV ONE ×2 (07:57→16:27)
--- NOTE | 2025-07-17 15:33 | Hospitalist Progress Note ---
Date of Service July 17, 2025 Assessment & Plan (1) Chronic respiratory failure with hypoxia, on home oxygen therapy: (2) COPD exacerbation: Plan: Per previous attending w/ addendum: Patient is 80 year old male with PMH COPD, chronic hypoxic respiratory failure on chronic 3L oxygen, CAD (s/p 3 stents 2007 D1/D2/LAD, s/p RCA stent 10/2024), DM II, depression, RBBB, GERD presented to ER with c/o SOB and white productive cough x 5 days. Acute COPD exacerbation Acute on chronic respiratory failure with hypoxia and hypercarbia Chronic oxygen dependency on 3 L at baseline Ongoing tobacco use disorder --BioFire negative --CXR:Normal chest radiograph -- Normal procalcitonin Continue azithromycin, Pulmicort, Perforomist, nebs Pulmonary hygiene with flutter, Mucinex Continue IV Solu-Medrol Supplemental oxygen to maintain saturations 88 to 92% Unclear if patient currently taking torsemide-- was held during hospital stay - now developing pl. effusion and lasix given (07/16) Will need 2 step prior to discharge Advised to follow-up with pulmonology as outpatient Slowly improving Continue current management Not interested in rehab placement repeat chest x-ray w/ small pl. effusion Diarrhea previously Reported 2 episodes diarrhea daily x 2 days If recurrent diarrhea obtain stool studies Stool studies pending No recurrence of diarrhea Home medication list Patient unaware of his home medications confirmed with patient's family previously - per phone call they were called before and verified meds in computer (Patient is unsure if his home medication. Daughter who assists with his medications is unable to to assist in verification at this time. ?Unsure if pt on dexlansoprazole, lisinopril, metformin, potassium, roflumilast, sertraline, torsemide - per admitting provider) Tobacco use disorder Pt says today he wants to quit smoking and wants nicotine patch to continue on DC Continue nicotine patch - (3) CAD (coronary artery disease): Plan: S/P Stents --ECHO: EF 55 to 60%. Left ventricular wall motion normal. Mild mitral regurgitation. Mild aortic root dilatation. Continue aspirin, carvedilol, atorvastatin, Brilinta Unclear if still taking Brilinta (last filled in 02/2025) (4) HTN (hypertension): Plan: Hypotensive on presentation Blood pressure improved with IV fluids Continue carvedilol torsemide held during this admission, as unclear if takes at home - family says he does take it at home Monitor blood pressure (5) HLD (hyperlipidemia): Plan: Continue atorvastatin (6) T2DM (type 2 diabetes mellitus): Plan: A1c: 6.7 Unclear if patient currently taking metformin NovoLog sliding scale, basal insulin e per protocol Monitor blood glucose level DVT Px Lovenox SQ CODE STATUS Full code Disposition - pt is now willing to go to rehab, CM notified Admission and Anticipated Discharge Date Admission Date: July 11, 2025 Subjective Patient seen in follow up sitting up in bed in NAD, with NC placed, says he feels close to baseline Says he talked to his family and he agrees with rehab - CM was notified Denies any chest pain, nausea, vomiting, abdominal pain Pt says he wants to quit smoking and wants nicotine patch to continue after he leaves the hospital Review of Systems Review of Systems: All systems reviewed & are unremarkable except as noted in Subjective Physical Exam Physical Exam: General Appearance:Moderately built and nourished, no apparent distress, chronic ill-appearing, elderly, on suppl. O2 Head: normocephalic, Atraumatic Eyes: normal inspection, EOMI Neck: supple Respiratory/Chest: Decreased breath sounds, minimal scattered wheezing/rhonchi, No accessory muscle use Cardiovascular: S1, S2, No murmur Abdomen/GI:Soft, Non tender, Bowel sounds present Extremities/Musculoskeletal:normal inspection, no edema Neurologic/Psych:AAOX3, grossly no focal neurological deficits ,+ decreased hearing Skin: normal color, warm Results & Data Results & Data Vital Signs (Past 12 Hours) Vital Signs Temp Pulse Pulse Resp BP BP Pulse Ox 07/17/25 15:20 36.4 C L 76 22 156/90 H 89 L 07/17/25 13:32 86 18 92 07/17/25 13:09 92 H 07/17/25 11:02 36.6 C 88 20 151/98 H 92 07/17/25 07:52 149/100 H 07/17/25 07:50 36.7 C 80 20 93 07/17/25 07:30 07/17/25 07:22 75 18 94 07/17/25 07:00 75 O2 Del Method O2 Flow Rate 07/17/25 15:20 Nasal Cannula 3 07/17/25 13:32 Nasal Cannula 3 07/17/25 13:09 07/17/25 11:02 Nasal Cannula 3 07/17/25 07:52 07/17/25 07:50 Nasal Cannula 3 07/17/25 07:30 Nasal Cannula 3 07/17/25 07:22 Nasal Cannula 3 07/17/25 07:00 Laboratory Results 07/17/25 07/17/25 07/16/25 Range/Units 12:57 05:27 20:04 WBC 13.43 H (4.8-10.8) K/ul RBC 4.66 L (4.70-6.10) M/uL Hgb 12.2 L (14.0-18.0) g/dl Hct 38.7 L (42.0-52.0) % MCV 83.0 (80.0-100.0) fL MCH 26.2 (25.0-34.0) pg MCHC 31.5 L (32.0-36.0) g/dL RDW Std Deviation 42.9 (36.4-46.3) fL RDW Coeff of Aileen 14.2 (11.5-14.5) % Plt Count 215 (130-400) K/uL MPV 11.3 (9.4-12.4) fL Sodium 141 (136-145) mmol/L Potassium 4.3 (3.5-5.1) mmol/L Chloride 105 (98-107) mmol/L Carbon Dioxide 30 (21-32) mmol/L Anion Gap 6 (3-11) BUN 29 H (6-23) mg/dl Creatinine 0.78 (0.6-1.4) mg/dl Est Cr Clr Drug Dosing 85.7 ml/min eGFR 91.28 BUN/Creatinine Ratio 37.2 H (10-20) Glucose 126 H (70-99(Fasting)) mg/dl POC Glucose 149 H 251 H (70-99) mg/dl Calcium 8.2 L (8.6-10.3) mg/dl Phosphorus 3.8 (2.5-4.9) mg/dl Magnesium 2.4 (1.7-2.4) mg/dl 07/16/25 Range/Units 17:19 WBC (4.8-10.8) K/ul RBC (4.70-6.10) M/uL Hgb (14.0-18.0) g/dl Hct (42.0-52.0) % MCV (80.0-100.0) fL MCH (25.0-34.0) pg MCHC (32.0-36.0) g/dL RDW Std Deviation (36.4-46.3) fL RDW Coeff of Aileen (11.5-14.5) % Plt Count (130-400) K/uL MPV (9.4-12.4) fL Sodium (136-145) mmol/L Potassium (3.5-5.1) mmol/L Chloride (98-107) mmol/L Carbon Dioxide (21-32) mmol/L Anion Gap (3-11) BUN (6-23) mg/dl Creatinine (0.6-1.4) mg/dl Est Cr Clr Drug Dosing ml/min eGFR BUN/Creatinine Ratio (10-20) Glucose (70-99(Fasting)) mg/dl POC Glucose 186 H (70-99) mg/dl Calcium (8.6-10.3) mg/dl Phosphorus (2.5-4.9) mg/dl Magnesium (1.7-2.4) mg/dl Medications Administered Current Inpatient Medications Acetaminophen (Acetaminophen 325 Mg Tab) 650 mg PO Q4H PRN PRN Reason: Pain or Fever Stop: 08/10/25 23:37 Albuterol (Albut/Ipratrop 3mg/0.5mg Neb 3 Ml Vial) 3 ml NEB Q6R [facility]; Protocol Stop: 08/10/25 23:37 Last Admin: 07/17/25 13:32 Dose: 3 ml Aspirin (Aspirin 81 Mg Ectab) 81 mg PO DAILY [facility] Stop: 08/11/25 08:59 Last Admin: 07/17/25 07:57 Dose: 81 mg Atorvastatin Calcium (Atorvastatin 40 Mg Tab) 80 mg PO DAILY [facility] Stop: 08/11/25 08:59 Last Admin: 07/17/25 07:58 Dose: 80 mg Budesonide (Budesonide 0.5 Mg/2 Ml Vial (Pulmicort)) 0.5 mg NEB BIDR [facility] Stop: 08/11/25 06:59 Last Admin: 07/17/25 07:21 Dose: 0.5 mg Carvedilol (Carvedilol 6.25 Mg Tab) 6.25 mg PO BID [facility] Stop: 08/11/25 08:59 Last Admin: 07/17/25 07:58 Dose: 6.25 mg Dextrose (Dextrose 50% 50 Ml Syringe) 25 - 50 ml IV UD PRN; Protocol PRN Reason: Hypoglycemia Protocol Stop: 08/10/25 23:37 Enoxaparin Sodium (Enoxaparin Inj 40 Mg/0.4 Ml Syr) 40 mg SQ Q24H [facility] Stop: 08/11/25 20:59 Last Admin: 07/16/25 19:45 Dose: 40 mg Formoterol Fumarate (Formoterol 20 Mcg/2 Ml Vial) 20 mcg NEB BIDR [facility] Stop: 08/11/25 06:59 Last Admin: 07/17/25 07:21 Dose: 20 mcg Glucagon (Glucagon For Inj 1 Mg Vial) 1 mg SQ UD PRN; Protocol PRN Reason: Hypoglycemia Protocol Stop: 08/10/25 23:37 Glucose (Glucose 40% Gel 15 Gm Tube) 15 - 30 gm PO UD PRN; Protocol PRN Reason: Hypoglycemia Protocol Stop: 08/10/25 23:37 Glucose (Glucose 10 Tab/Tube) 4 - 8 tab PO UD PRN; Protocol PRN Reason: Hypoglycemia Protocol Stop: 08/10/25 23:37 Guaifenesin (Guaifenesin 600 Mg Tabcr) 1,200 mg PO Q12 [facility] Stop: 08/11/25 08:59 Last Admin: 07/17/25 07:57 Dose: 1,200 mg Methylprednisolone 40 mg/ (Syringe) 0.64 mls @ 1.5 mls/min IV BID [facility] Stop: 08/14/25 20:59 Last Admin: 07/17/25 07:57 Dose: 1.5 mls/min Ceftriaxone Sodium (Rocephin) 2,000 mg in 50 mls @ 100 mls/hr IV Q24H [facility] Stop: 07/20/25 15:59 Last Infusion: 07/16/25 16:50 Dose: Infused Insulin Aspart (Insulin Aspart Per Unit Charge) 0 units SC ACHS [facility] Stop: 08/10/25 23:37 Last Admin: 07/17/25 12:58 Dose: 7 units Insulin Glargine (Lantus Per Unit Charge) 5 units SQ BID [facility] Stop: 08/11/25 08:59 Last Admin: 07/17/25 09:02 Dose: 5 units Levalbuterol HCl (Levalbuterol Hcl 0.63 Mg/3 Ml Neb) 0.63 mg NEB Q6H PRN; Protocol PRN Reason: Shortness Of Breath Or Wheezing Stop: 08/12/25 11:30 Last Admin: 07/14/25 15:53 Dose: 0.63 mg Magnesium Oxide (Magnesium Oxide 400 Mg Tab) 400 mg PO BID [facility] Stop: 08/15/25 20:59 Last Admin: 07/17/25 07:57 Dose: 400 mg Miscellaneous (Remove Nicoderm Patch) 1 each N/A DAILY@0859 [facility] Stop: 08/11/25 08:58 Last Admin: 07/17/25 07:59 Dose: 1 each Miscellaneous (Carbohydrates For Hypoglycemia ) 15 - 30 gm PO UD PRN PRN Reason: Hypoglycemia Protocol Stop: 08/10/25 23:37 Nicotine (Nicotine 14 Mg/24 Hr Patch) 1 patch TD QAM [facility] Stop: 08/11/25 08:59 Last Admin: 07/17/25 07:58 Dose: 1 patch Ondansetron HCl (Ondansetron Inj 2 Mg/Ml 2 Ml Vial) 4 mg IV Q6H PRN PRN Reason: Nausea Stop: 08/10/25 23:37 Pantoprazole Sodium (Pantoprazole 40 Mg Tab) 40 mg PO QAM [facility] Stop: 08/11/25 08:59 Last Admin: 07/17/25 07:57 Dose: 40 mg Polyethylene Glycol (Polyethylene (Miralax) 17 Gm Pack) 17 gm PO DAILY PRN PRN Reason: Constipation Stop: 08/10/25 23:37 Ticagrelor (Ticagrelor 90 Mg Tab) 90 mg PO BID [facility] Stop: 08/11/25 08:59 Last Admin: 07/17/25 07:58 Dose: 90 mg (6) T2DM (type 2 diabetes mellitus) Diabetes mellitus intermediate insulin use: without computer terminal operator use Diabetes mellitus complication status: with other specified complication Qualified Code(s): E11.69 - Type 2 diabetes mellitus with other specified complication
[2025-07-17] MEDS: POTASSIUM CHLORIDE CRTAB 20 MEQ TABCR PO STA (16:34)
[2025-07-18 07:26] LABS: Hematocrit (blood only) 39.1 % (42.0-52.0); Hemoglobin 12.2 g/dl (14.0-18.0); Mean Corpuscular Hemoglobin 26.1 pg (25.0-34.0); Mean Corpuscular Volume 83.5 fL (80.0-100.0); Platelet Count 197 K/uL (130-400); RDW Standard Deviation 43.6 fL (36.4-46.3); Red Blood Count 4.68 M/uL (4.70-6.10); White Blood Count 13.12 K/ul (4.8-10.8)
[2025-07-18 07:47] LABS: Anion Gap 4.0 (3-11); Blood Urea Nitrogen 31.0 mg/dl (6-23); Calcium 8.0 mg/dl (8.6-10.3); Carbon Dioxide 33.0 mmol/L (21-32); Chloride 105.0 mmol/L (98-107); Creatinine Clr Calc Pharmacy 73.4 ml/min; Glucose 121.0 mg/dl (70-99(Fasting)); Magnesium 2.5 mg/dl (1.7-2.4); Potassium 4.2 mmol/L (3.5-5.1); Sodium 142.0 mmol/L (136-145)
[2025-07-18] MEDS: predniSONE 20 MG TAB PO SCH (08:00)
[2025-07-18] MEDS: FUROSEMIDE INJ 20 MG/2 ML VIAL IV ONE ×2 (08:59→14:35)
--- NOTE | 2025-07-18 14:05 | XRay Report ---
XR chest 1V portable CLINICAL HISTORY: follow up COMPARISON STUDY: 07/16/2025 FINDINGS: Heart size and pulmonary vasculature are normal. Prior lateral right hemithorax opacity per sists but has improved, possible artifact from overlying soft tissue. There is stable stranding opaci ty at the right lung base. No other consolidation or pleural effusion. No pneumothorax. Stable prior operative change or old fractures at a few right mid ribs. IMPRESSION: Likely atelectasis right lung base. No other acute findings seen. ACT 112: Negative or not required by law. Electronically signed by: Yifan Levine M.D. 07/18/2025 2:03 PM
--- NOTE | 2025-07-18 14:31 | Hospitalist Progress Note ---
Date of Service July 18, 2025 Assessment & Plan (1) Chronic respiratory failure with hypoxia, on home oxygen therapy: (2) COPD exacerbation: Plan: Per previous attending w/ addendum: Patient is 80 year old male with PMH COPD, chronic hypoxic respiratory failure on chronic 3L oxygen, CAD (s/p 3 stents 2007 D1/D2/LAD, s/p RCA stent 10/2024), DM II, depression, RBBB, GERD presented to ER with c/o SOB and white productive cough x 5 days. Acute COPD exacerbation Acute on chronic respiratory failure with hypoxia and hypercarbia Chronic oxygen dependency on 3 L at baseline Ongoing tobacco use disorder --BioFire negative --CXR:Normal chest radiograph -- Normal procalcitonin Continue azithromycin, Pulmicort, Perforomist, nebs Pulmonary hygiene with flutter, Mucinex Continue IV Solu-Medrol Supplemental oxygen to maintain saturations 88 to 92% Unclear if patient currently taking torsemide-- was held during hospital stay - now developing pl. effusion and iv lasix started (07/16) May need 2 step prior to discharge Advised to follow-up with pulmonology as outpatient Slowly improving Continue current management Not interested in rehab placement repeat chest x-ray w/ small pl. effusion - iv lasix started as above will repeat CXR Diarrhea previously Reported 2 episodes diarrhea daily x 2 days If recurrent diarrhea obtain stool studies Stool studies pending No recurrence of diarrhea Home medication list Patient unaware of his home medications confirmed with patient's family previously - per phone call they were called before and verified meds in computer (Patient is unsure if his home medication. Daughter who assists with his medications is unable to to assist in verification at this time. ?Unsure if pt on dexlansoprazole, lisinopril, metformin, potassium, roflumilast, sertraline, torsemide - per admitting provider) Tobacco use disorder Pt says today (07/17) he wants to quit smoking and wants nicotine patch to continue on DC Continue nicotine patch - (3) CAD (coronary artery disease): Plan: S/P Stents --ECHO: EF 55 to 60%. Left ventricular wall motion normal. Mild mitral regurgitation. Mild aortic root dilatation. Continue aspirin, carvedilol, atorvastatin, Brilinta Unclear if was taking Brilinta at home (last filled in 02/2025) (4) HTN (hypertension): Plan: Hypotensive on presentation Blood pressure improved with IV fluids Continue carvedilol torsemide held during this admission, as unclear if takes at home - family says he does take it at home Monitor blood pressure (5) HLD (hyperlipidemia): Plan: Continue atorvastatin (6) T2DM (type 2 diabetes mellitus): Plan: A1c: 6.7 Unclear if patient currently taking metformin NovoLog sliding scale, basal insulin e per protocol Monitor blood glucose level DVT Px Lovenox SQ CODE STATUS Full code Disposition - pt is now willing to go to rehab, CM notified Admission and Anticipated Discharge Date Admission Date: July 11, 2025 Subjective Patient seen in follow up Lying in bed in NAD, with NC placed, says he feels well Says he talked to his family and he agrees with rehab - CM was notified Denies any chest pain, nausea, vomiting, abdominal pain Pt said yesterday he wants to quit smoking and wants nicotine patch to continue after he leaves the hospital Review of Systems Review of Systems: All systems reviewed & are unremarkable except as noted in Subjective Physical Exam Physical Exam: General Appearance:Moderately built and nourished, no apparent distress, chronic ill-appearing, elderly, on suppl. O2 Head: normocephalic, Atraumatic Eyes: normal inspection, EOMI Neck: supple Respiratory/Chest: Decreased breath sounds, minimal scattered wheezing/rhonchi, No accessory muscle use Cardiovascular: S1, S2, No murmur Abdomen/GI:Soft, Non tender, Bowel sounds present Extremities/Musculoskeletal:normal inspection, no edema Neurologic/Psych:AAOX3, grossly no focal neurological deficits ,+ decreased hearing Skin: normal color, warm Results & Data Results & Data Vital Signs (Past 12 Hours) Vital Signs Temp Pulse Resp BP Pulse Ox O2 Del Method O2 Flow Rate 07/18/25 13:45 98 H 24 90 Nasal Cannula 4 07/18/25 12:49 36.6 C 104 H 20 126/85 90 Nasal Cannula 3 07/18/25 11:22 36.6 C 85 18 126/84 91 Nasal Cannula 3 07/18/25 07:40 36.4 C L 83 20 173/104 H 95 Nasal Cannula 3 07/18/25 07:26 85 18 92 Nasal Cannula 3 07/18/25 02:41 37.7 C H 83 16 134/88 93 Nasal Cannula 3 Laboratory Results 07/18/25 07/18/25 07/18/25 Range/Units 11:44 07:51 07:11 WBC 13.12 H (4.8-10.8) K/ul RBC 4.68 L (4.70-6.10) M/uL Hgb 12.2 L (14.0-18.0) g/dl Hct 39.1 L (42.0-52.0) % MCV 83.5 (80.0-100.0) fL MCH 26.1 (25.0-34.0) pg MCHC 31.2 L (32.0-36.0) g/dL RDW Std Deviation 43.6 (36.4-46.3) fL RDW Coeff of Aileen 14.4 (11.5-14.5) % Plt Count 197 (130-400) K/uL MPV 10.9 (9.4-12.4) fL Sodium 142 (136-145) mmol/L Potassium 4.2 (3.5-5.1) mmol/L Chloride 105 (98-107) mmol/L Carbon Dioxide 33 H (21-32) mmol/L Anion Gap 4 (3-11) BUN 31 H (6-23) mg/dl Creatinine 0.91 (0.6-1.4) mg/dl Est Cr Clr Drug Dosing 73.4 ml/min eGFR 86.27 BUN/Creatinine Ratio 34.1 H (10-20) Glucose 121 H (70-99(Fasting)) mg/dl POC Glucose 108 H 109 H (70-99) mg/dl Calcium 8.0 L (8.6-10.3) mg/dl Phosphorus 4.2 (2.5-4.9) mg/dl Magnesium 2.5 H (1.7-2.4) mg/dl 07/17/25 07/17/25 Range/Units 20:06 16:10 WBC (4.8-10.8) K/ul RBC (4.70-6.10) M/uL Hgb (14.0-18.0) g/dl Hct (42.0-52.0) % MCV (80.0-100.0) fL MCH (25.0-34.0) pg MCHC (32.0-36.0) g/dL RDW Std Deviation (36.4-46.3) fL RDW Coeff of Aileen (11.5-14.5) % Plt Count (130-400) K/uL MPV (9.4-12.4) fL Sodium (136-145) mmol/L Potassium (3.5-5.1) mmol/L Chloride (98-107) mmol/L Carbon Dioxide (21-32) mmol/L Anion Gap (3-11) BUN (6-23) mg/dl Creatinine (0.6-1.4) mg/dl Est Cr Clr Drug Dosing ml/min eGFR BUN/Creatinine Ratio (10-20) Glucose (70-99(Fasting)) mg/dl POC Glucose 142 H 150 H (70-99) mg/dl Calcium (8.6-10.3) mg/dl Phosphorus (2.5-4.9) mg/dl Magnesium (1.7-2.4) mg/dl Medications Administered Current Inpatient Medications Acetaminophen (Acetaminophen 325 Mg Tab) 650 mg PO Q4H PRN PRN Reason: Pain or Fever Stop: 08/10/25 23:37 Albuterol (Albut/Ipratrop 3mg/0.5mg Neb 3 Ml Vial) 3 ml NEB Q6R [facility]; Protocol Stop: 08/10/25 23:37 Last Admin: 07/18/25 13:43 Dose: 3 ml Aspirin (Aspirin 81 Mg Ectab) 81 mg PO DAILY [facility] Stop: 08/11/25 08:59 Last Admin: 07/18/25 07:57 Dose: 81 mg Atorvastatin Calcium (Atorvastatin 40 Mg Tab) 80 mg PO DAILY [facility] Stop: 08/11/25 08:59 Last Admin: 07/18/25 07:57 Dose: 80 mg Budesonide (Budesonide 0.5 Mg/2 Ml Vial (Pulmicort)) 0.5 mg NEB BIDR [facility] Stop: 08/11/25 06:59 Last Admin: 07/18/25 07:26 Dose: 0.5 mg Carvedilol (Carvedilol 6.25 Mg Tab) 6.25 mg PO BID [facility] Stop: 08/11/25 08:59 Last Admin: 07/18/25 07:58 Dose: 6.25 mg Dextrose (Dextrose 50% 50 Ml Syringe) 25 - 50 ml IV UD PRN; Protocol PRN Reason: Hypoglycemia Protocol Stop: 08/10/25 23:37 Enoxaparin Sodium (Enoxaparin Inj 40 Mg/0.4 Ml Syr) 40 mg SQ Q24H [facility] Stop: 08/11/25 20:59 Last Admin: 07/17/25 21:04 Dose: 40 mg Formoterol Fumarate (Formoterol 20 Mcg/2 Ml Vial) 20 mcg NEB BIDR [facility] Stop: 08/11/25 06:59 Last Admin: 07/18/25 07:26 Dose: 20 mcg Furosemide (Furosemide Inj 20 Mg/2 Ml Vial) 20 mg IV ONE ONE Stop: 07/18/25 14:27 Glucagon (Glucagon For Inj 1 Mg Vial) 1 mg SQ UD PRN; Protocol PRN Reason: Hypoglycemia Protocol Stop: 08/10/25 23:37 Glucose (Glucose 40% Gel 15 Gm Tube) 15 - 30 gm PO UD PRN; Protocol PRN Reason: Hypoglycemia Protocol Stop: 08/10/25 23:37 Glucose (Glucose 10 Tab/Tube) 4 - 8 tab PO UD PRN; Protocol PRN Reason: Hypoglycemia Protocol Stop: 08/10/25 23:37 Guaifenesin (Guaifenesin 600 Mg Tabcr) 1,200 mg PO Q12 [facility] Stop: 08/11/25 08:59 Last Admin: 07/18/25 07:59 Dose: 1,200 mg Ceftriaxone Sodium (Rocephin) 2,000 mg in 50 mls @ 100 mls/hr IV Q24H [facility] Stop: 07/20/25 15:59 Last Infusion: 07/17/25 16:06 Dose: Infused Insulin Aspart (Insulin Aspart Per Unit Charge) 0 units SC ACHS [facility] Stop: 08/10/25 23:37 Last Admin: 07/18/25 13:08 Dose: 4 units Insulin Glargine (Lantus Per Unit Charge) 5 units SQ BID [facility] Stop: 08/11/25 08:59 Last Admin: 07/18/25 08:55 Dose: 5 units Levalbuterol HCl (Levalbuterol Hcl 0.63 Mg/3 Ml Neb) 0.63 mg NEB Q6H PRN; Protocol PRN Reason: Shortness Of Breath Or Wheezing Stop: 08/12/25 11:30 Last Admin: 07/14/25 15:53 Dose: 0.63 mg Magnesium Oxide (Magnesium Oxide 400 Mg Tab) 400 mg PO BID [facility] Stop: 08/15/25 20:59 Last Admin: 07/18/25 07:59 Dose: 400 mg Miscellaneous (Remove Nicoderm Patch) 1 each N/A DAILY@0859 [facility] Stop: 08/11/25 08:58 Last Admin: 07/18/25 07:59 Dose: 1 each Miscellaneous (Carbohydrates For Hypoglycemia ) 15 - 30 gm PO UD PRN PRN Reason: Hypoglycemia Protocol Stop: 08/10/25 23:37 Nicotine (Nicotine 14 Mg/24 Hr Patch) 1 patch TD QAM [facility] Stop: 08/11/25 08:59 Last Admin: 07/18/25 07:57 Dose: 1 patch Ondansetron HCl (Ondansetron Inj 2 Mg/Ml 2 Ml Vial) 4 mg IV Q6H PRN PRN Reason: Nausea Stop: 08/10/25 23:37 Pantoprazole Sodium (Pantoprazole 40 Mg Tab) [facility] [place] Stop: 08/11/25 08:59 Last Admin: 07/18/25 07:58 Dose: 40 mg Polyethylene Glycol (Polyethylene (Miralax) 17 Gm Pack) 17 gm PO DAILY PRN PRN Reason: Constipation Stop: 08/10/25 23:37 Prednisone (Prednisone 20 Mg Tab) 40 mg PO QAM [facility] Stop: 08/17/25 08:59 Last Admin: 07/18/25 08:00 Dose: 40 mg Ticagrelor (Ticagrelor 90 Mg Tab) 90 mg PO BID [facility] Stop: 08/11/25 08:59 Last Admin: 07/18/25 07:57 Dose: 90 mg (6) T2DM (type 2 diabetes mellitus) Diabetes mellitus group home insulin use: without terminal operations supervisor use Diabetes mellitus complication status: with other specified complication Qualified Code(s): E11.69 - Type 2 diabetes mellitus with other specified complication
[2025-07-19 08:57] LABS: Hematocrit (blood only) 43.2 % (42.0-52.0); Hemoglobin 13.7 g/dl (14.0-18.0); Mean Corpuscular Hemoglobin 27.4 pg (25.0-34.0); Mean Corpuscular Volume 86.4 fL (80.0-100.0); Platelet Count 239 K/uL (130-400); RDW Standard Deviation 45.5 fL (36.4-46.3); Red Blood Count 5.00 M/uL (4.70-6.10); White Blood Count 13.26 K/ul (4.8-10.8)
[2025-07-19 09:13] LABS: Anion Gap 5.0 (3-11); Blood Urea Nitrogen 29.0 mg/dl (6-23); Calcium 8.5 mg/dl (8.6-10.3); Carbon Dioxide 35.0 mmol/L (21-32); Chloride 102.0 mmol/L (98-107); Creatinine Clr Calc Pharmacy 76.8 ml/min; Glucose 132.0 mg/dl (70-99(Fasting)); Magnesium 2.5 mg/dl (1.7-2.4); Potassium 4.3 mmol/L (3.5-5.1); Sodium 142.0 mmol/L (136-145)
[2025-07-19] MEDS: OPTIRAY 320 125ml IV ONE (09:37)
--- NOTE | 2025-07-19 10:02 | Hospitalist Progress Note ---
Date of Service July 19, 2025 Assessment & Plan (1) Chronic respiratory failure with hypoxia, on home oxygen therapy: (2) COPD exacerbation: Plan: Per previous attending w/ addendum: Patient is 80 year old male with PMH COPD, chronic hypoxic respiratory failure on chronic 3L oxygen, CAD (s/p 3 stents 2007 D1/D2/LAD, s/p RCA stent 10/2024), DM II, depression, RBBB, GERD presented to ER with c/o SOB and white productive cough x 5 days. Acute COPD exacerbation Acute on chronic respiratory failure with hypoxia and hypercarbia Chronic oxygen dependency on 3 L at baseline Ongoing tobacco use disorder --BioFire negative --CXR:Normal chest radiograph -- Normal procalcitonin Continue azithromycin, Pulmicort, Perforomist, nebs Pulmonary hygiene with flutter, Mucinex Continue IV Solu-Medrol Supplemental oxygen to maintain saturations 88 to 92% Unclear if patient currently taking torsemide-- was held during hospital stay - now developing pl. effusion and iv lasix started (07/16) May need 2 step prior to discharge Advised to follow-up with pulmonology as outpatient Slowly improving Continue current management Not interested in rehab placement repeat chest x-ray w/ small pl. effusion - iv lasix started as above repeat CXR - improved w/ some abnormalities still noted, CT chest obtained - Impression: 1. No definite sign of pulmonary embolism 2. Bilateral lung base atelectasis 3. Occlusion of the bilateral lower lobe bronchi, which may be due to mucous plugging or infectious debris 4. Extensive coronary atherosclerosis 07/19 Pt overall seems to be clinically improving Diarrhea previously Reported 2 episodes diarrhea daily x 2 days If recurrent diarrhea obtain stool studies Stool studies pending No recurrence of diarrhea Home medication list Patient unaware of his home medications confirmed with patient's family previously - per phone call they were called before and verified meds in computer (Patient is unsure if his home medication. Daughter who assists with his medications is unable to to assist in verification at this time. ?Unsure if pt on dexlansoprazole, lisinopril, metformin, potassium, roflumilast, sertraline, torsemide - per admitting provider) Tobacco use disorder Pt says today (07/17) he wants to quit smoking and wants nicotine patch to continue on DC Continue nicotine patch - (3) CAD (coronary artery disease): Plan: S/P Stents --ECHO: EF 55 to 60%. Left ventricular wall motion normal. Mild mitral regurgitation. Mild aortic root dilatation. Continue aspirin, carvedilol, atorvastatin, Brilinta Unclear if was taking Brilinta at home (last filled in 02/2025) (4) HTN (hypertension): Plan: Hypotensive on presentation Blood pressure improved with IV fluids Continue carvedilol torsemide held during this admission, as unclear if takes at home - family says he does take it at home Monitor blood pressure (5) HLD (hyperlipidemia): Plan: Continue atorvastatin (6) T2DM (type 2 diabetes mellitus): Plan: A1c: 6.7 Unclear if patient currently taking metformin NovoLog sliding scale, basal insulin e per protocol Monitor blood glucose level DVT Px Lovenox SQ CODE STATUS Full code Disposition - pt is now willing to go to rehab, CM notified Admission and Anticipated Discharge Date Admission Date: July 11, 2025 Subjective Patient seen in follow up Lying in bed in NAD, with NC placed, says he feels well Says he talked to his family and he agrees with rehab - CM was notified Denies any chest pain, nausea, vomiting, abdominal pain Pt said to me previously he wanted to quit smoking and wants nicotine patch to continue after he leaves the hospital Review of Systems Review of Systems: All systems reviewed & are unremarkable except as noted in Subjective Physical Exam Physical Exam: General Appearance: Moderately built and nourished, no apparent distress, chronic ill-appearing, elderly, on suppl. O2 Head: normocephalic, Atraumatic Eyes: normal inspection, EOMI Neck: supple Respiratory/Chest: Decreased breath sounds, minimal scattered wheezing/rhonchi, No accessory muscle use Cardiovascular: S1, S2, No murmur Abdomen/GI: Soft, Non tender, Bowel sounds present Extremities/Musculoskeletal: normal inspection, no edema Neurologic/Psych: AAOX3, grossly no focal neurological deficits , + decreased hearing Skin: normal color, warm Results & Data Results & Data Vital Signs (Past 12 Hours) Vital Signs Temp Pulse Pulse Resp BP Pulse Ox O2 Del Method 07/19/25 08:29 36.4 C L 89 20 145/87 H 91 Nasal Cannula 07/19/25 07:06 84 18 96 Nasal Cannula 07/19/25 04:00 36.7 C 77 22 144/84 H 96 Nasal Cannula 07/19/25 02:12 96 H 18 93 Nasal Cannula 07/18/25 23:34 36.4 C L 94 H 22 120/77 95 Nasal Cannula 07/18/25 23:10 92 H O2 Flow Rate 07/19/25 08:29 3 07/19/25 07:06 4 07/19/25 04:00 2 07/19/25 02:12 4 07/18/25 23:34 4 07/18/25 23:10 Laboratory Results 07/19/25 07/19/25 07/18/25 Range/Units 08:43 07:51 20:16 WBC 13.26 H (4.8-10.8) K/ul RBC 5.00 (4.70-6.10) M/uL Hgb 13.7 L (14.0-18.0) g/dl Hct 43.2 (42.0-52.0) % MCV 86.4 (80.0-100.0) fL MCH 27.4 (25.0-34.0) pg MCHC 31.7 L (32.0-36.0) g/dL RDW Std Deviation 45.5 (36.4-46.3) fL RDW Coeff of Aileen 14.4 (11.5-14.5) % Plt Count 239 (130-400) K/uL MPV 10.8 (9.4-12.4) fL Sodium 142 (136-145) mmol/L Potassium 4.3 (3.5-5.1) mmol/L Chloride 102 (98-107) mmol/L Carbon Dioxide 35 H (21-32) mmol/L Anion Gap 5 (3-11) BUN 29 H (6-23) mg/dl Creatinine 0.87 (0.6-1.4) mg/dl Est Cr Clr Drug Dosing 76.8 ml/min eGFR 88.32 BUN/Creatinine Ratio 33.3 H (10-20) Glucose 132 H (70-99(Fasting)) mg/dl POC Glucose 84 194 H (70-99) mg/dl Calcium 8.5 L (8.6-10.3) mg/dl Magnesium 2.5 H (1.7-2.4) mg/dl 07/18/25 07/18/25 Range/Units 16:50 11:44 WBC (4.8-10.8) K/ul RBC (4.70-6.10) M/uL Hgb (14.0-18.0) g/dl Hct (42.0-52.0) % MCV (80.0-100.0) fL MCH (25.0-34.0) pg MCHC (32.0-36.0) g/dL RDW Std Deviation (36.4-46.3) fL RDW Coeff of Aileen (11.5-14.5) % Plt Count (130-400) K/uL MPV (9.4-12.4) fL Sodium (136-145) mmol/L Potassium (3.5-5.1) mmol/L Chloride (98-107) mmol/L Carbon Dioxide (21-32) mmol/L Anion Gap (3-11) BUN (6-23) mg/dl Creatinine (0.6-1.4) mg/dl Est Cr Clr Drug Dosing ml/min eGFR BUN/Creatinine Ratio (10-20) Glucose (70-99(Fasting)) mg/dl POC Glucose 145 H 108 H (70-99) mg/dl Calcium (8.6-10.3) mg/dl Magnesium (1.7-2.4) mg/dl Medications Administered Current Inpatient Medications Acetaminophen (Acetaminophen 325 Mg Tab) 650 mg PO Q4H PRN PRN Reason: Pain or Fever Stop: 08/10/25 23:37 Albuterol (Albut/Ipratrop 3mg/0.5mg Neb 3 Ml Vial) 3 ml NEB Q6R ON LICENSE OF [facility]; Protocol Stop: 08/10/25 23:37 Last Admin: 07/19/25 07:05 Dose: Not Given Aspirin (Aspirin 81 Mg Ectab) 81 mg PO DAILY ON LICENSE OF [facility] Stop: 08/11/25 08:59 Last Admin: 07/19/25 07:57 Dose: 81 mg Atorvastatin Calcium (Atorvastatin 40 Mg Tab) 80 mg PO DAILY ON LICENSE OF [facility] Stop: 08/11/25 08:59 Last Admin: 07/19/25 07:56 Dose: 80 mg Budesonide (Budesonide 0.5 Mg/2 Ml Vial (Pulmicort)) 0.5 mg NEB BIDR ON LICENSE OF [facility] Stop: 08/11/25 06:59 Last Admin: 07/19/25 07:06 Dose: 0.5 mg Carvedilol (Carvedilol 6.25 Mg Tab) 6.25 mg PO BID [facility] Stop: 08/11/25 08:59 Last Admin: 07/19/25 07:56 Dose: 6.25 mg Dextrose (Dextrose 50% 50 Ml Syringe) 25 - 50 ml IV UD PRN; Protocol PRN Reason: Hypoglycemia Protocol Stop: 08/10/25 23:37 Enoxaparin Sodium (Enoxaparin Inj 40 Mg/0.4 Ml Syr) 40 mg SQ Q24H JENAE Stop: 08/11/25 20:59 Last Admin: 07/18/25 20:43 Dose: 40 mg Formoterol Fumarate (Formoterol 20 Mcg/2 Ml Vial) 20 mcg NEB BIDR [facility] Stop: 08/11/25 06:59 Last Admin: 07/19/25 07:05 Dose: 20 mcg Glucagon (Glucagon For Inj 1 Mg Vial) 1 mg SQ UD PRN; Protocol PRN Reason: Hypoglycemia Protocol Stop: 08/10/25 23:37 Glucose (Glucose 40% Gel 15 Gm Tube) 15 - 30 gm PO UD PRN; Protocol PRN Reason: Hypoglycemia Protocol Stop: 08/10/25 23:37 Glucose (Glucose 10 Tab/Tube) 4 - 8 tab PO UD PRN; Protocol PRN Reason: Hypoglycemia Protocol Stop: 08/10/25 23:37 Guaifenesin (Guaifenesin 600 Mg Tabcr) 1,200 mg PO Q12 [facility] Stop: 08/11/25 08:59 Last Admin: 07/19/25 07:56 Dose: 1,200 mg Ceftriaxone Sodium (Rocephin) 2,000 mg in 50 mls @ 100 mls/hr IV Q24H [facility] Stop: 07/20/25 15:59 Last Infusion: 07/18/25 17:31 Dose: Infused Insulin Aspart (Insulin Aspart Per Unit Charge) 0 units SC ACHS JENA[facility] Stop: 08/10/25 23:37 Last Admin: 07/19/25 09:16 Dose: 6 units Insulin Glargine (Lantus Per Unit Charge) 5 units SQ BID [facility] Stop: 08/11/25 08:59 Last Admin: 07/19/25 09:16 Dose: 5 units Levalbuterol HCl (Levalbuterol Hcl 0.63 Mg/3 Ml Neb) 0.63 mg NEB Q6H PRN; Protocol PRN Reason: Shortness Of Breath Or Wheezing Stop: 08/12/25 11:30 Last Admin: 07/14/25 15:53 Dose: 0.63 mg Magnesium Oxide (Magnesium Oxide 400 Mg Tab) 400 mg PO BID ON LICENSE OF [facility] Stop: 08/15/25 20:59 Last Admin: 07/19/25 07:56 Dose: 400 mg Miscellaneous (Remove Nicoderm Patch) 1 each N/A DAILY@0859 ON LICENSE OF [facility] Stop: 08/11/25 08:58 Last Admin: 07/19/25 07:58 Dose: 1 each Miscellaneous (Carbohydrates For Hypoglycemia ) 15 - 30 gm PO UD PRN PRN Reason: Hypoglycemia Protocol Stop: 08/10/25 23:37 Nicotine (Nicotine 14 Mg/24 Hr Patch) 1 patch TD [facility] Stop: 08/11/25 08:59 Last Admin: 07/19/25 07:54 Dose: 1 patch Ondansetron HCl (Ondansetron Inj 2 Mg/Ml 2 Ml Vial) 4 mg IV Q6H PRN PRN Reason: Nausea Stop: 08/10/25 23:37 Pantoprazole Sodium (Pantoprazole 40 Mg Tab) [facility] Stop: 08/11/25 08:59 Last Admin: 07/19/25 07:56 Dose: 40 mg Polyethylene Glycol (Polyethylene (Miralax) 17 Gm Pack) 17 gm PO DAILY PRN PRN Reason: Constipation Stop: 08/10/25 23:37 Prednisone (Prednisone 20 Mg Tab) 40 mg PO QAM ON LICENSE OF [facility] Stop: 08/17/25 08:59 Last Admin: 07/19/25 07:56 Dose: 40 mg Ticagrelor (Ticagrelor 90 Mg Tab) 90 mg PO BID ON LICENSE OF [facility] Stop: 08/11/25 08:59 Last Admin: 07/19/25 07:57 Dose: 90 mg (6) T2DM (type 2 diabetes mellitus) Diabetes mellitus complication status: with other specified complication Diabetes mellitus senior living insulin use: without director long term care use Qualified Code( s): E11.69 - Type 2 diabetes mellitus with other specified complication
--- NOTE | 2025-07-19 10:04 | CT Scan Report ---
Clinical history: Rule out pulmonary embolism Technique: Axial computed tomography images were obtained of the chest after the administration of intravenous contrast according to the CT angiogram protocol Comparison is made to the prior CT dated 11/09/2024 Findings: There is no definite sign of pulmonary embolism. There is right lower lobe atelectasis, with less severe lingular and left lower lobe atelectasis. There is no pleural effusion or pneumothorax. There is no sign of pulmonary fibrosis or other diffuse interstitial process. There is occlusion of the bilateral lower lobe bronchi There is no mediastinal, hilar, or axillary adenopathy. The thoracic aorta appears unremarkable with no sign of aneurysm or dissection. There is no pericardial effusion. There is extensive coronary atherosclerosis The gallbladder has been removed. There are old right rib fractures. No focal osseous lesion is evident Impression: 1. No definite sign of pulmonary embolism 2. Bilateral lung base atelectasis 3. Occlusion of the bilateral lower lobe bronchi, which may be due to mucous plugging or infectious debris 4. Extensive coronary atherosclerosis Electronically signed by Micah Avery 07-19-2025 10:04 AM
[2025-07-20 06:04] LABS: Hematocrit (blood only) 37.9 % (42.0-52.0); Hemoglobin 12.2 g/dl (14.0-18.0); Mean Corpuscular Hemoglobin 27.3 pg (25.0-34.0); Mean Corpuscular Volume 84.8 fL (80.0-100.0); Platelet Count 208 K/uL (130-400); RDW Standard Deviation 43.8 fL (36.4-46.3); Red Blood Count 4.47 M/uL (4.70-6.10); White Blood Count 11.72 K/ul (4.8-10.8)
[2025-07-20 06:20] LABS: Anion Gap 2.0 (3-11); Blood Urea Nitrogen 25.0 mg/dl (6-23); Calcium 8.1 mg/dl (8.6-10.3); Carbon Dioxide 33.0 mmol/L (21-32); Chloride 106.0 mmol/L (98-107); Creatinine Clr Calc Pharmacy 85.7 ml/min; Glucose 113.0 mg/dl (70-99(Fasting)); Magnesium 2.4 mg/dl (1.7-2.4); Potassium 4.0 mmol/L (3.5-5.1); Sodium 141.0 mmol/L (136-145)
[2025-07-20] MEDS: predniSONE 20 MG TAB PO SCH (07:58)
--- NOTE | 2025-07-20 08:04 | Hospitalist Progress Note ---
Date of Service July 20, 2025 Assessment & Plan (1) Chronic respiratory failure with hypoxia, on home oxygen therapy: (2) COPD exacerbation: Plan: Per previous attending w/ addendum: Patient is 80 year old male with PMH COPD, chronic hypoxic respiratory failure on chronic 3L oxygen, CAD (s/p 3 stents 2007 D1/D2/LAD, s/p RCA stent 10/2024), DM II, depression, RBBB, GERD presented to ER with c/o SOB and white productive cough x 5 days. Acute COPD exacerbation Acute on chronic respiratory failure with hypoxia and hypercarbia Chronic oxygen dependency on 3 L at baseline Ongoing tobacco use disorder --BioFire negative --CXR:Normal chest radiograph -- Normal procalcitonin Continue azithromycin, Pulmicort, Perforomist, nebs Pulmonary hygiene with flutter, Mucinex Continue IV Solu-Medrol Supplemental oxygen to maintain saturations 88 to 92% Unclear if patient currently taking torsemide-- was held during hospital stay - now developing pl. effusion and iv lasix started (07/16) May need 2 step prior to discharge Advised to follow-up with pulmonology as outpatient Slowly improving Continue current management Not interested in rehab placement repeat chest x-ray w/ small pl. effusion - iv lasix started as above repeat CXR - improved w/ some abnormalities still noted, CT chest obtained - Impression: 1. No definite sign of pulmonary embolism 2. Bilateral lung base atelectasis 3. Occlusion of the bilateral lower lobe bronchi, which may be due to mucous plugging or infectious debris 4. Extensive coronary atherosclerosis 07/19 Pt overall seems to be clinically improving 07/20 Pt is feeling well, at baseline 3L of suppl.O2 Diarrhea previously Reported 2 episodes diarrhea daily x 2 days If recurrent diarrhea obtain stool studies No recurrence of diarrhea Home medication list Patient unaware of his home medications confirmed with patient's family previously - per phone call they were called before and verified meds in computer (Patient is unsure if his home medication. Daughter who assists with his medications was unable to assist in verification at that time. ?Unsure if pt on dexlansoprazole, lisinopril, metformin, potassium, roflumilast, sertraline, torsemide - per admitting provider) Tobacco use disorder Pt says today (07/17) he wants to quit smoking and wants nicotine patch to continue on DC Continue nicotine patch - (3) CAD (coronary artery disease): Plan: S/P Stents --ECHO: EF 55 to 60%. Left ventricular wall motion normal. Mild mitral regurgitation. Mild aortic root dilatation. Continue aspirin, carvedilol, atorvastatin, Brilinta Unclear if was taking Brilinta at home (last filled in 02/2025) (4) HTN (hypertension): Plan: Hypotensive on presentation Blood pressure improved with IV fluids Continue carvedilol torsemide held during this admission, as unclear if takes at home - family says he does take it at home Monitor blood pressure (5) HLD (hyperlipidemia): Plan: Continue atorvastatin (6) T2DM (type 2 diabetes mellitus): Plan: A1c: 6.7 Unclear if patient currently taking metformin NovoLog sliding scale, basal insulin e per protocol Monitor blood glucose level DVT Px Lovenox SQ CODE STATUS Full code Disposition - pt is now willing to go to rehab, CM involved Admission and Anticipated Discharge Date Admission Date: July 11, 2025 Subjective Patient seen in follow up Lying in bed in NAD, with NC placed, says he feels well Says he talked to his family and he agrees with rehab - CM was notified - pt interested in different facilities initially, later only interested at [facility] - will discuss further w/ CM on Monday Denies any chest pain, nausea, vomiting, abdominal pain Pt said to me previously he wanted to quit smoking and wants nicotine patch to continue after he leaves the hospital Review of Systems Review of Systems: All systems reviewed & are unremarkable except as noted in Subjective Physical Exam Physical Exam: General Appearance: Moderately built and nourished, no apparent distress, chronic ill-appearing, elderly, on suppl. O2 Head: normocephalic, Atraumatic Eyes: normal inspection, EOMI Neck: supple Respiratory/Chest: Decreased breath sounds, minimal scattered wheezing/rhonchi, No accessory muscle use Cardiovascular: S1, S2, No murmur Abdomen/GI: Soft, Non tender, Bowel sounds present Extremities/Musculoskeletal: normal inspection, no edema Neurologic/Psych: AAOX3, grossly no focal neurological deficits , + decreased hearing Skin: normal color, warm Results & Data Results & Data Vital Signs (Past 12 Hours) Vital Signs Temp Pulse Pulse Resp BP BP Pulse Ox 07/20/25 07:19 83 18 93 07/20/25 07:12 07/20/25 05:47 80 07/20/25 03:26 36.4 C L 89 20 144/96 H 92 07/20/25 00:01 84 17 96 07/19/25 23:44 91 H 07/19/25 23:13 36.7 C 86 22 139/79 93 07/19/25 21:39 07/19/25 20:21 94 H 18 95 O2 Del Method O2 Flow Rate 07/20/25 07:19 Nasal Cannula 3 07/20/25 07:12 Nasal Cannula 4 07/20/25 05:47 07/20/25 03:26 Nasal Cannula 3 07/20/25 00:01 Nasal Cannula 3 07/19/25 23:44 07/19/25 23:13 Nasal Cannula 3 07/19/25 21:39 Nasal Cannula 4 07/19/25 20:21 Nasal Cannula 3 Laboratory Results 07/20/25 07/20/25 07/19/25 Range/Units 07:43 05:42 19:55 WBC 11.72 H (4.8-10.8) K/ul RBC 4.47 L (4.70-6.10) M/uL Hgb 12.2 L (14.0-18.0) g/dl Hct 37.9 L (42.0-52.0) % MCV 84.8 (80.0-100.0) fL MCH 27.3 (25.0-34.0) pg MCHC 32.2 (32.0-36.0) g/dL RDW Std Deviation 43.8 (36.4-46.3) fL RDW Coeff of Aileen 14.2 (11.5-14.5) % Plt Count 208 (130-400) K/uL MPV 10.8 (9.4-12.4) fL Sodium 141 (136-145) mmol/L Potassium 4.0 (3.5-5.1) mmol/L Chloride 106 (98-107) mmol/L Carbon Dioxide 33 H (21-32) mmol/L Anion Gap 2 L (3-11) BUN 25 H (6-23) mg/dl Creatinine 0.78 (0.6-1.4) mg/dl Est Cr Clr Drug Dosing 85.7 ml/min eGFR 91.28 BUN/Creatinine Ratio 32.1 H (10-20) Glucose 113 H (70-99(Fasting)) mg/dl POC Glucose 177 H 163 H (70-99) mg/dl Calcium 8.1 L (8.6-10.3) mg/dl Magnesium 2.4 (1.7-2.4) mg/dl 07/19/25 07/19/25 07/19/25 Range/Units 17:01 12:02 08:43 WBC 13.26 H (4.8-10.8) K/ul RBC 5.00 (4.70-6.10) M/uL Hgb 13.7 L (14.0-18.0) g/dl Hct 43.2 (42.0-52.0) % MCV 86.4 (80.0-100.0) fL MCH 27.4 (25.0-34.0) pg MCHC 31.7 L (32.0-36.0) g/dL RDW Std Deviation 45.5 (36.4-46.3) fL RDW Coeff of Aileen 14.4 (11.5-14.5) % Plt Count 239 (130-400) K/uL MPV 10.8 (9.4-12.4) fL Sodium 142 (136-145) mmol/L Potassium 4.3 (3.5-5.1) mmol/L Chloride 102 (98-107) mmol/L Carbon Dioxide 35 H (21-32) mmol/L Anion Gap 5 (3-11) BUN 29 H (6-23) mg/dl Creatinine 0.87 (0.6-1.4) mg/dl Est Cr Clr Drug Dosing 76.8 ml/min eGFR 88.32 BUN/Creatinine Ratio 33.3 H (10-20) Glucose 132 H (70-99(Fasting)) mg/dl POC Glucose 135 H 139 H (70-99) mg/dl Calcium 8.5 L (8.6-10.3) mg/dl Magnesium 2.5 H (1.7-2.4) mg/dl Medications Administered Current Inpatient Medications Acetaminophen (Acetaminophen 325 Mg Tab) 650 mg PO Q4H PRN PRN Reason: Pain or Fever Stop: 08/10/25 23:37 Albuterol (Albut/Ipratrop 3mg/0.5mg Neb 3 Ml Vial) 3 ml NEB Q6R [facility]; Protocol Stop: 08/10/25 23:37 Last Admin: 07/20/25 07:19 Dose: Not Given Aspirin (Aspirin 81 Mg Ectab) 81 mg PO DAILY [facility] Stop: 08/11/25 08:59 Last Admin: 07/20/25 07:59 Dose: 81 mg Atorvastatin Calcium (Atorvastatin 40 Mg Tab) 80 mg PO DAILY [facility] Stop: 08/11/25 08:59 Last Admin: 07/20/25 07:59 Dose: 80 mg Budesonide (Budesonide 0.5 Mg/2 Ml Vial (Pulmicort)) 0.5 mg NEB BIDR [facility] Stop: 08/11/25 06:59 Last Admin: 07/20/25 07:19 Dose: 0.5 mg Carvedilol (Carvedilol 6.25 Mg Tab) 6.25 mg PO BID [facility] Stop: 08/11/25 08:59 Last Admin: 07/20/25 07:59 Dose: 6.25 mg Dextrose (Dextrose 50% 50 Ml Syringe) 25 - 50 ml IV UD PRN; Protocol PRN Reason: Hypoglycemia Protocol Stop: 08/10/25 23:37 Enoxaparin Sodium (Enoxaparin Inj 40 Mg/0.4 Ml Syr) 40 mg SQ Q24H [facility] Stop: 08/11/25 20:59 Last Admin: 07/19/25 21:33 Dose: 40 mg Formoterol Fumarate (Formoterol 20 Mcg/2 Ml Vial) 20 mcg NEB BIDR [facility] Stop: 08/11/25 06:59 Last Admin: 07/20/25 07:19 Dose: 20 mcg Furosemide (Furosemide Inj 20 Mg/2 Ml Vial) 20 mg IV ONE ONE Stop: 07/20/25 08:04 Glucagon (Glucagon For Inj 1 Mg Vial) 1 mg SQ UD PRN; Protocol PRN Reason: Hypoglycemia Protocol Stop: 08/10/25 23:37 Glucose (Glucose 40% Gel 15 Gm Tube) 15 - 30 gm PO UD PRN; Protocol PRN Reason: Hypoglycemia Protocol Stop: 08/10/25 23:37 Glucose (Glucose 10 Tab/Tube) 4 - 8 tab PO UD PRN; Protocol PRN Reason: Hypoglycemia Protocol Stop: 08/10/25 23:37 Guaifenesin (Guaifenesin 600 Mg Tabcr) 1,200 mg PO Q12 [facility] Stop: 08/11/25 08:59 Last Admin: 07/20/25 07:59 Dose: 1,200 mg Ceftriaxone Sodium (Rocephin) 2,000 mg in 50 mls @ 100 mls/hr IV Q24H [facility] Stop: 07/20/25 15:59 Last Infusion: 07/19/25 19:00 Dose: Infused Insulin Aspart (Insulin Aspart Per Unit Charge) 0 units SC ACHS [facility] Stop: 08/10/25 23:37 Last Admin: 07/19/25 21:34 Dose: 5 units Insulin Glargine (Lantus Per Unit Charge) 5 units SQ BID [facility] Stop: 08/11/25 08:59 Last Admin: 07/19/25 21:34 Dose: 5 units Levalbuterol HCl (Levalbuterol Hcl 0.63 Mg/3 Ml Neb) 0.63 mg NEB Q6H PRN; Protocol PRN Reason: Shortness Of Breath Or Wheezing Stop: 08/12/25 11:30 Last Admin: 07/14/25 15:53 Dose: 0.63 mg Magnesium Oxide (Magnesium Oxide 400 Mg Tab) 400 mg PO BID [facility] Stop: 08/15/25 20:59 Last Admin: 07/20/25 07:59 Dose: 400 mg Miscellaneous (Remove Nicoderm Patch) 1 each N/A DAILY@0859 [facility] Stop: 08/11/25 08:58 Last Admin: 07/20/25 07:59 Dose: 1 each Miscellaneous (Carbohydrates For Hypoglycemia ) 15 - 30 gm PO UD PRN PRN Reason: Hypoglycemia Protocol Stop: 08/10/25 23:37 Nicotine (Nicotine 14 Mg/24 Hr Patch) [facility] [place] Stop: 08/11/25 08:59 Last Admin: 07/20/25 07:57 Dose: 1 patch Ondansetron HCl (Ondansetron Inj 2 Mg/Ml 2 Ml Vial) 4 mg IV Q6H PRN PRN Reason: Nausea Stop: 08/10/25 23:37 Pantoprazole Sodium (Pantoprazole 40 Mg Tab) 40 mg PO QAM [facility] Stop: 08/11/25 08:59 Last Admin: 07/20/25 07:59 Dose: 40 mg Polyethylene Glycol (Polyethylene (Miralax) 17 Gm Pack) 17 gm PO DAILY PRN PRN Reason: Constipation Stop: 08/10/25 23:37 Prednisone (Prednisone 20 Mg Tab) 20 mg PO QAM [facility] Stop: 08/19/25 08:59 Last Admin: 07/20/25 07:58 Dose: 20 mg Ticagrelor (Ticagrelor 90 Mg Tab) 90 mg PO BID [facility] Stop: 08/11/25 08:59 Last Admin: 07/20/25 07:58 Dose: 90 mg (6) T2DM (type 2 diabetes mellitus) Diabetes mellitus complication status: with other specified complication Diabetes mellitus rodent exterminator insulin use: without detention use Qualified Code(s): E11.69 - Type 2 diabetes mellitus with other specified complication
[2025-07-20] MEDS: FUROSEMIDE INJ 20 MG/2 ML VIAL IV ONE ×2 (09:20→16:50)
[2025-07-21 07:23] LABS: Anion Gap 4.0 (3-11); Blood Urea Nitrogen 22.0 mg/dl (6-23); Calcium 8.4 mg/dl (8.6-10.3); Carbon Dioxide 37.0 mmol/L (21-32); Chloride 101.0 mmol/L (98-107); Creatinine Clr Calc Pharmacy 75.9 ml/min; Glucose 115.0 mg/dl (70-99(Fasting)); Magnesium 2.3 mg/dl (1.7-2.4); Potassium 4.2 mmol/L (3.5-5.1); Sodium 142.0 mmol/L (136-145)
[2025-07-21 07:55] VITALS: RESP 20
[2025-07-21] MEDS ORDERED: ALBUT/IPRATROP 3MG/0.5MG NEB 3 ML VIAL NEB PRN (09:26)
[2025-07-21] MEDS: FUROSEMIDE INJ 20 MG/2 ML VIAL IV ONE (11:31)
[2025-07-21 11:47] VITALS: TEMP 97.5; O2SAT 91
--- NOTE | 2025-07-21 15:01 | Discharge Summary ---
Date of Service July 21, 2025 Admission HPI Per Admitting Provider Patient is 80 year old male with PMH COPD, chronic hypoxic respiratory failure on chronic 3L oxygen, CAD (s/p 3 stents 2007 D1/D2/LAD, s/p RCA stent 10/2024), DM II, depression, RBBB, GERD presented to ER with c/o SOB and cough x 5 days. Patient states 5 days ago started with cough productive of white-colored sputum and nasal congestion. He also reports feeling more short of breath than normal. Patient reports he is to wear 3 L oxygen chronically however he primarily just uses it at bedtime. He denies any fever or chills. Denies any ill contacts. Reported 2 episodes diarrhea daily x 2 days. Denies fever/chills, diaphoresis, N/V, melena, hematochezia, BROWN, dizziness, syncope,CP, palpitations, sore throat, abdominal pain, extremity weakness, extremity edema, rashes, urinary symptoms. Admission Exam Per Admitting Provider General: no distress, WDWN Head: normocephalic, atraumatic Eyes: conjunctiva non-injected, anicteric ENT: +hard of hearing normal inspection external ears, nose, mucous membranes dry Neck: supple, trachea midline, non-tender Lungs: no respiratory distress, +wheezing throughout, no rhonchi/rales CV: RRR, no pretibial edema Abd: normal BS, soft, non-tender Ext: no cyanosis, no calf tenderness Neuro: A&O x 3, no focal deficits noted, normal affect Skin: warm, dry Principal Diagnosis COPD exacerbation Chronic respiratory failure with hypoxia, on home oxygen therapy Discharge Exam General Appearance: Moderately built and nourished, no apparent distress, chronic ill-appearing, elderly, on suppl. O2 Head: normocephalic, Atraumatic Eyes: normal inspection, EOMI Neck: supple Respiratory/Chest: Decreased breath sounds, minimal scattered wheezing/rhonchi, No accessory muscle use Cardiovascular: S1, S2, No murmur Abdomen/GI: Soft, Non tender, Bowel sounds present Extremities/Musculoskeletal: normal inspection, no edema Neurologic/Psych: AAOX3, grossly no focal neurological deficits , + decreased hearing Skin: normal color, warm Discharge Data Allergies Allergy/AdvReac Type Severity Reaction Status Date / Time Penicillins Allergy Intermediate Hives Verified 07/11/25 18:32 pentobarbital Allergy Unknown ON Verified 07/11/25 18:32 [employer] MED LIST Consultations 07/11/25 18:12 ED Decision to Admit Stat Ordered Studies 07/19/25 09:00 CT angio chest PE protocol Routine Findings: There is no definite sign of pulmonary embolism. There is right lower lobe atelectasis, with less severe lingular and left lower lobe atelectasis. There is no pleural effusion or pneumothorax. There is no sign of pulmonary fibrosis or other diffuse interstitial process. There is occlusion of the bilateral lower lobe bronchi There is no mediastinal, hilar, or axillary adenopathy. The thoracic aorta appears unremarkable with no sign of aneurysm or dissection. There is no pericardial effusion. There is extensive coronary atherosclerosis The gallbladder has been removed. There are old right rib fractures. No focal osseous lesion is evident Impression: 1. No definite sign of pulmonary embolism 2. Bilateral lung base atelectasis 3. Occlusion of the bilateral lower lobe bronchi, which may be due to mucous plugging or infectious debris 4. Extensive coronary atherosclerosis Hospital Course (1) Chronic respiratory failure with hypoxia, on home oxygen therapy: (2) COPD exacerbation: Patient is 80 year old male with PMH COPD, chronic hypoxic respiratory failure on chronic 3L oxygen, CAD (s/p 3 stents 2007 D1/D2/LAD, s/p RCA stent 10/2024), DM II, depression, RBBB, GERD presented to ER with c/o SOB and white productive cough x 5 days. Acute COPD exacerbation Acute on chronic respiratory failure with hypoxia and hypercarbia Chronic oxygen dependency on 3 L at baseline Ongoing tobacco use disorder --BioFire negative --CXR:Normal chest radiograph -- Normal procalcitonin Continue azithromycin, Pulmicort, Perforomist, nebs Pulmonary hygiene with flutter, Mucinex Continue IV Solu-Medrol Supplemental oxygen to maintain saturations 88 to 92% Unclear if patient currently taking torsemide-- was held during hospital stay - now developing pl. effusion and iv lasix started (07/16) May need 2 step prior to discharge Advised to follow-up with pulmonology as outpatient Slowly improving Continue current management Not interested in rehab placement repeat chest x-ray w/ small pl. effusion - iv lasix started as above repeat CXR - improved w/ some abnormalities still noted, CT chest obtained - Impression: 1. No definite sign of pulmonary embolism 2. Bilateral lung base atelectasis 3. Occlusion of the bilateral lower lobe bronchi, which may be due to mucous plugging or infectious debris 4. Extensive coronary atherosclerosis 07/19 Pt overall seems to be clinically improving 07/20 Pt is feeling well, at baseline 3L of suppl.O2 Home medication list Patient unaware of his home medications confirmed with patient's family previously - per phone call they were called before and verified meds in computer (Patient is unsure if his home medication. Daughter who assists with his medications was unable to assist in verification at that time. ?Unsure if pt on dexlansoprazole, lisinopril, metformin, potassium, roflumilast, sertraline, torsemide - per admitting provider) Tobacco use disorder Pt says today (07/17) he wants to quit smoking and wants nicotine patch to continue on DC Continue nicotine patch - (3) CAD (coronary artery disease): S/P Stents --ECHO: EF 55 to 60%. Left ventricular wall motion normal. Mild mitral regurgitation. Mild aortic root dilatation. Continue aspirin, carvedilol, atorvastatin, Brilinta Unclear if was taking Brilinta at home (last filled in 02/2025) (4) HTN (hypertension): Hypotensive on presentation Blood pressure improved with IV fluids Continue carvedilol torsemide held during this admission, as unclear if takes at home - family says he does take it at home. received iv lasix -> recommend to DC on torsemide 40 daily instead of BID and follow up closely w/ PCP Monitor blood pressure (5) HLD (hyperlipidemia): Continue atorvastatin (6) T2DM (type 2 diabetes mellitus): A1c: 6.7 Unclear if patient currently taking metformin NovoLog sliding scale, basal insulin e per protocol Monitor blood glucose level Total Time Total Time Spent Total Time Spent (In Minutes): 40 Discharge Plan Discharge Items Patient Disposition: Home - Self-Care Reason For Visit: SOB Discharge Diagnosis: COPD exacerbation Chronic respiratory failure with hypoxia, on home oxygen therapy Condition on Discharge: Fair Activity: Per Instructions section Non-emergency contact: Primary Care Provider, Specialist and Electrical Mechanical Technician Call non-emergency contact if: you have any medication questions and your symptoms worsen Follow-up/Referrals: Kai Hinton MD [Physician] - 08/01/25 10:45 am Kumar Anders, DO [Primary Care Provider] - 07/25/25 11:00 am Diet: Carb Consistent or DM2 and Heart Healthy Addtl Attending Provider Instructions: Follow up with your primary care physician and your auto leasing manager (lung doctor - Dr. Hinton). You should be seen by primary care physician within 1 week. The appointment with auto leasing manager is scheduled for 07/31/2025. Finish prednisone course - 20 mg daily - for next 3 days. Decrease torsemide to 40 mg daily instead of twice a day, monitor your weight daily and discuss further with your primary care physician if this dose needs to be further adjusted. Pending Studies at Discharge: No Stand-Alone Forms: [facility], Smoking Cessation Medications and DC Order Prescriptions: New nicotine 7 mg/24 hr Patch 24 Hour 1 patch transdermal QAM Qty: 14 0RF pantoprazole 40 mg Tablet,Delayed Release (Dr/Ec) 40 mg PO QAM Qty: 30 0RF prednisone 20 mg Tablet 20 mg PO QAM Qty: 3 0RF Continued (DME) nebulizer and compressor Device See Rx Instructions .ROUTE .MEDSUPPLY Qty: 1 0RF Rx Instructions: As directed (DME) Portable Oxygen Misc See Rx Instructions .Route Qty: 1 0RF Rx Instructions: 2L via nc at all times hydrocodone-acetaminophen 10-325 mg tablet 1 tab PO Q6H PRN (Reason: Pain) potassium chloride 20 mEq tablet extended release 20 meq PO DAILY PRN (Reason: When taking Torsemide) Rx Instructions: UNABLE TO VERIFY THIS MEDICATION atorvastatin 80 mg tablet 80 mg PO DAILY guaifenesin [Mucinex] 600 mg Tablet Extended Release 12hr 600 mg PO Q12 PRN (Reason: congestion) Qty: 30 0RF metformin 500 mg tablet See Rx Instructions .ROUTE .COMPLEX Rx Instructions: Take 1000mg by mouth in the morning and 500mg by mouth in the evening. LAST FILLED 01/24/25 FOR 90 DAYS/270 TABS. aspirin 81 mg Tablet,Delayed Release (Dr/Ec) 81 mg PO DAILY nitroglycerin 0.4 mg Tablet, Sublingual 0.4 mg sublingual DIRECTED PRN (Reason: Chest Pain) albuterol sulfate 90 mcg/actuation HFA aerosol inhaler 2 puff INHALATION Q4H PRN (Reason: cough,sob,wheezing) Trelegy Ellipta 100-62.5-25 mcg blister with device 1 inh INHALATION QAM albuterol sulfate 2.5 mg /3 mL (0.083 %) Solution For Nebulization 2.5 mg inhalation Q4H PRN (Reason: sob) Qty: 360 0RF dexlansoprazole [Dexilant] 60 mg capsule,biphase delayed releas 60 mg PO DAILY Rx Instructions: UNABLE TO VERIFY THIS MEDICATION roflumilast [Daliresp] 500 mcg Tablet 500 mcg PO DAILY Rx Instructions: UNABLE TO VERIFY THIS MEDICATION carvedilol 6.25 mg tablet 6.25 mg PO BID ticagrelor [Brilinta] 90 mg tablet 90 mg PO BID Rx Instructions: LAST FILLED 02/26/25 FOR 30 DAYS/60 TABS. docusate sodium 100 mg capsule 100 mg PO BID sodium chloride [Murtaza 128] 5 % Drops 1 drp OPR QID Changed torsemide 20 mg tablet 40 mg PO DAILY Qty: 0 0RF Rx Instructions: UNABLE TO VERIFY THIS MEDICATION Held lisinopril 5 mg tablet 5 mg PO DAILY Hold Instructions: Resume on 07/28/25. discuss with your primary care doctor when to resume this medication Rx Instructions: LAST FILLED 01/24/25 FOR 90 DAYS/90 TABS. Discontinued sertraline 25 mg tablet 25 mg PO DAILY Rx Instructions: LAST FILLED 11/04/24 FOR 30 DAYS/30 TABS. Discharge Orders: Discharge Order (Routine); Ordered 07/21/25 Ordered By: Miek Bowen/Other Patient Handouts: Managing Type 2 Diabetes Admission Data Admit Date/Time: 07/11/25 19:01 Attending Provider: Mike Mcdonald Admit Provider: Neil Hartman Primary Care Provider: Kumar Anders Other Providers: Niel Hartman; To Parker; Avery,[facility]; Nick Powell [facility]; [place],[facility]
[2025-07-21 15:28] VITALS: BP 144/96
[2025-07-21 15:56] VITALS: PULSE 77
== END 2025-07-21 15:59 | disposition home or self-care (01) | DRG 190 ==
LOC: ED 15:38 → EDINP 19:01 → SUATTDRO 19:01 → 2N 07-12 16:29